=== PATIENT | male | born 1985 | race Caucasian/White ===

== ENCOUNTER → 2024-05-17 | Outpatient (CLI) | payer OTHER, SELFPAY ==
[2024-05-17 12:47] LABS: Bacteria 0 SEEN /hpf (None Seen); Mucous, Urine 0 SEEN /hpf (<or=2+); Red Blood Cells-Urine 0 SEEN /hpf (0-5); Squamous Epithelial Cells - UA 0 SEEN /hpf (0-5); White Blood Cells 0 SEEN /hpf (0-5)
[2024-05-17 15:19] LABS: Color, Urine Yellow (Yellow); Glucose, Dipstick Normal (Normal); Ketone-Dipstick Negative (Negative); Leukocyte Esterase-Dipstick Negative /ul (Negative); Nitrite-Dipstick Negative (Negative); Occult Blood-Urine Negative /ul (Negative); Protein-Dipstick Negative (Negative); Specific Gravity, Urine 1.025 (1.002-1.030); Urine Bilirubin Dipstick Negative (Negative); Urine Clarity Clear (Clear); Urine Urobilinogen Normal (Normal)
[2024-05-17 15:22] LABS: Absolute Lymphocyte Count 2.91 X10^3/uL (0.83-4.51); Absolute Neutrophil Count 8.5 X10^3/uL (2.0-7.7); Basophil# 0.06 X10^3/uL; Basophil% 0.5 % (0-1); Eosinophil# 0.15 X10^3/uL; Eosinophils% 1.2 % (0-5); Hematocrit 47.8 % (40-54); Hemoglobin 15.4 g/dL (13.0-16.5); Lymphocyte # 2.91 X10^3/ul (0.83-4.51); Lymphocyte % 23.3 % (19-41); Mean Corp Hgb Conc 32.2 g/dL (32-36); Mean Corpuscular Hgb 28.6 pg (27.0-32.0); Mean Corpuscular Volume 88.7 fL (80-94); Mean Platelet Vol. 9.2 fl (6.2-12.0); Monocyte# 0.76 X10^3/uL; Monocyte% 6.1 % (0-10); NRBC Flagged by Analyzer 0 % (0-5); Neutrophil # 8.51 X10^3/uL (2.7-7.7); Neutrophil % 68.3 % (47-70); Platelet Count 369 K/mm3 (150-450); RBC Distribution Width CV 13.2 % (11.6-14.6); RBC Distribution Width SD 42.7 fl (35.1-43.9); Red Blood Count 5.39 M/mm3 (4.6-6.2); White Blood Count 12.5 K/mm3 (4.4-11.0)
[2024-05-17 15:35] LABS: ALB/GLOB Ratio 0.7 RATIO (0.9-2.4); AST(SGOT) 31 U/L (15-37); Alanine Aminotransfer ALT/SGPT 89 U/L (16-61); Albumin, Serum 2.9 g/dL (3.2-5.0); Alkaline Phosphatase 86 U/L (45-117); Anion Gap 6 (5-15); BUN 24 mg/dL (7-18); BUN/Creat Ratio 22.9 RATIO (10-20); Calcium,Total 8.7 mg/dL (8.5-10.1); Chloride 106 mmol/L (98-107); Creatinine, Serum 1.05 mg/dL (0.70-1.30); EST Glomerular Filtration Rate 84 mL/min (>60); Est Glom Filt Rate - Afr Amer 102 mL/min (>60); Glucose 108 mg/dL (74-106); Potassium 3.6 mmol/L (3.5-5.1); Protein, Total 6.9 g/dL (6.4-8.2); Sodium Level 139 mmol/L (136-145)
[2024-05-19 08:11] LABS: ASO Titer 1150.5 IU/mL (0.0-200.0); Immunoglobulin A 297 mg/dL (90-386)
== END | disposition home or self-care (01) ==
PROVIDERS: PCP Nurse Practitioner Family; Referring Provider Physician Assistant Medical; Visit Provider Physician Assistant Medical
DX: L30.9 Dermatitis, unspecified (principal)
CPT/HCPCS: 36415; 80053; 81001; 82784; 85025; 86060

== ENCOUNTER → 2024-08-29 | Outpatient (CLI) | payer OTHER, SELFPAY ==
[2024-08-29 11:48] LABS: EXAGEN MAILED SPECIMEN
[2024-08-29 12:20] LABS: Color, Urine Yellow (Yellow); Glucose, Dipstick Normal (Normal); Ketone-Dipstick Negative (Negative); Leukocyte Esterase-Dipstick 25 /ul (Negative); Nitrite-Dipstick Negative (Negative); Occult Blood-Urine 250 /ul (Negative); Protein-Dipstick 100 mg/dl (Negative); Specific Gravity, Urine 1.025 (1.002-1.030); Urine Bilirubin Dipstick Negative (Negative); Urine Clarity Sl. Cloudy (Clear); Urine Urobilinogen Normal (Normal)
[2024-08-29 12:25] LABS: Erythrocyte Sedimentation Rate 36 mm/hr (0-20)
[2024-08-29 12:27] LABS: Absolute Lymphocyte Count 3.17 X10^3/uL (0.83-4.51); Absolute Neutrophil Count 6.1 X10^3/uL (2.0-7.7); Basophil# 0.08 X10^3/uL; Basophil% 0.8 % (0-1); Eosinophil# 0.22 X10^3/uL; Eosinophils% 2.2 % (0-5); Hematocrit 46.2 % (40-54); Lymphocyte # 3.17 X10^3/ul (0.83-4.51); Lymphocyte % 31.1 % (19-41); Mean Corp Hgb Conc 32.5 g/dL (32-36); Mean Corpuscular Hgb 28.5 pg (27.0-32.0); Mean Corpuscular Volume 87.8 fL (80-94); Mean Platelet Vol. 9.3 fl (6.2-12.0); Monocyte% 5.9 % (0-10); NRBC Flagged by Analyzer 0 % (0-5); Neutrophil # 6.07 X10^3/uL (2.7-7.7); Neutrophil % 59.6 % (47-70); Platelet Count 351 K/mm3 (150-450); RBC Distribution Width CV 12.5 % (11.6-14.6); RBC Distribution Width SD 40.5 fl (35.1-43.9); Red Blood Count 5.26 M/mm3 (4.6-6.2); White Blood Count 10.2 K/mm3 (4.4-11.0)
[2024-08-29 12:58] LABS: ALB/GLOB Ratio 0.8 RATIO (0.9-2.4); AST(SGOT) 40 U/L (15-37); Alanine Aminotransfer ALT/SGPT 101 U/L (16-61); Albumin, Serum 3.1 g/dL (3.2-5.0); Alkaline Phosphatase 105 U/L (45-117); Anion Gap 8 (5-15); BUN 20 mg/dL (7-18); BUN/Creat Ratio 22.7 RATIO (10-20); Calcium,Total 9.2 mg/dL (8.5-10.1); Chloride 104 mmol/L (98-107); Creatinine, Serum 0.88 mg/dL (0.70-1.30); EST Glomerular Filtration Rate 103 mL/min (>60); Est Glom Filt Rate - Afr Amer 124 mL/min (>60); Globulin 4.1 g/dL (2.2-4.2); Glucose 103 mg/dL (74-106); Potassium 3.8 mmol/L (3.5-5.1); Protein, Total 7.2 g/dL (6.4-8.2); Sodium Level 136 mmol/L (136-145)
[2024-08-29 13:12] LABS: Protein, Urine (Random) 185.2 mg/dL (<11.9); Protein:Creat Ratio 912 mg/g CRE (0-200)
[2024-08-29 14:27] LABS: Hepatitis B Surface Antibody Reactive; Hepatitis B Surface Antigen Non-Reactive (Nonreactive); Hepatitis C Antibody Non-Reactive (Nonreactive)
== END | disposition home or self-care (01) ==
PROVIDERS: PCP Nurse Practitioner Family; Referring Provider Internal Medicine Rheumatology; Visit Provider Internal Medicine Rheumatology
DX: M31.0 Hypersensitivity angiitis (principal); I10 Essential (primary) hypertension
CPT/HCPCS: 36415; 80053; 81002; 82570; 82595; 84156; 85025; 85652; 86140; 86706; 86803; 87340

== ENCOUNTER → 2024-12-25 | Outpatient (CLI) | payer OTHER, SELFPAY ==
[2024-12-25 12:52] LABS: Erythrocyte Sedimentation Rate 38 mm/hr (0-20)
[2024-12-25 12:56] LABS: Absolute Lymphocyte Count 2.46 X10^3/uL (0.83-4.51); Absolute Neutrophil Count 14.9 X10^3/uL (2.0-7.7); Basophil# 0.06 X10^3/uL; Basophil% 0.3 % (0-1); Eosinophil# 0.02 X10^3/uL; Eosinophils% 0.1 % (0-5); Hematocrit 47.5 % (40-54); Hemoglobin 15.7 g/dL (13.0-16.5); Lymphocyte # 2.46 X10^3/ul (0.83-4.51); Lymphocyte % 13.4 % (19-41); Mean Corp Hgb Conc 33.1 g/dL (32-36); Mean Corpuscular Volume 84.8 fL (80-94); Mean Platelet Vol. 9.3 fl (6.2-12.0); Monocyte# 0.77 X10^3/uL; Monocyte% 4.2 % (0-10); NRBC Flagged by Analyzer 0 % (0-5); Neutrophil # 14.92 X10^3/uL (2.7-7.7); Neutrophil % 81.5 % (47-70); Platelet Count 394 K/mm3 (150-450); RBC Distribution Width CV 13.2 % (11.6-14.6); RBC Distribution Width SD 40.8 fl (35.1-43.9); White Blood Count 18.3 K/mm3 (4.4-11.0)
[2024-12-25 13:04] LABS: ALB/GLOB Ratio 1.1 RATIO (0.9-2.4); AST(SGOT) 24 U/L (<=37); Alanine Aminotransfer ALT/SGPT 46 U/L (<=46); Alkaline Phosphatase 82 U/L (40-129); Anion Gap 13 (5-15); BUN 28 mg/dL (4-19); BUN/Creat Ratio 35.5 RATIO (10-20); Calcium,Total 9.8 mg/dL (7.6-11.0); Carbon Dioxide 21.1 mmol/L (21.0-32.0); Chloride 102 mmol/L (98-108); EST Glomerular Filtration Rate 116 (>60); Globulin 3.6 g/dL (2.2-4.2); Glucose 105 mg/dL (70-99); Potassium 4.5 mmol/L (3.3-5.1); Protein, Total 7.6 g/dL (5.9-8.4); Sodium Level 136 mmol/L (133-145)
[2024-12-25 13:08] LABS: Color, Urine Yellow (Yellow); Glucose, Dipstick Normal (Normal); Ketone-Dipstick Negative (Negative); Leukocyte Esterase-Dipstick Negative /ul (Negative); Nitrite-Dipstick Negative (Negative); Occult Blood-Urine 250 /ul (Negative); Protein-Dipstick 100 mg/dl (Negative); Urine Bilirubin Dipstick Negative (Negative); Urine Clarity Clear (Clear); Urine Urobilinogen Normal (Normal)
[2024-12-25 13:20] LABS: CRP 8.98 mg/L (0.0-3.0)
[2024-12-25 13:34] LABS: Protein, Urine (Random) 66.5 mg/dL (0.0-12.0); Protein:Creat Ratio 652 mg/g CRE (0-200)
== END | disposition home or self-care (01) ==
LOC: MTLAB 09:48
PROVIDERS: PCP Nurse Practitioner Family; Referring Provider Internal Medicine Rheumatology; Visit Provider Internal Medicine Rheumatology
DX: M31.0 Hypersensitivity angiitis (principal); Z79.899 Other long term (current) drug therapy; I10 Essential (primary) hypertension
CPT/HCPCS: 36415; 80053; 81002; 82570; 84156; 85025; 85652; 86140

== ENCOUNTER → 2025-03-26 | Outpatient (CLI) | payer OTHER, SELFPAY ==
[2025-03-26 12:18] LABS: Absolute Lymphocyte Count 2.43 X10^3/uL (0.83-4.51); Absolute Neutrophil Count 13.7 X10^3/uL (2.0-7.7); Basophil# 0.06 X10^3/uL; Basophil% 0.3 % (0-1); Eosinophil# 0.02 X10^3/uL; Eosinophils% 0.1 % (0-5); Hematocrit 47.8 % (40-54); Hemoglobin 15.6 g/dL (13.0-16.5); Lymphocyte # 2.43 X10^3/ul (0.83-4.51); Lymphocyte % 14.1 % (19-41); Mean Corp Hgb Conc 32.6 g/dL (32-36); Mean Corpuscular Hgb 28.9 pg (27.0-32.0); Mean Corpuscular Volume 88.5 fL (80-94); Mean Platelet Vol. 9.1 fl (6.2-12.0); Monocyte# 0.85 X10^3/uL; Monocyte% 4.9 % (0-10); NRBC Flagged by Analyzer 0 % (0-5); Neutrophil # 13.67 X10^3/uL (2.7-7.7); Neutrophil % 79.7 % (47-70); Platelet Count 309 K/mm3 (150-450); RBC Distribution Width CV 14.4 % (11.6-14.6); RBC Distribution Width SD 46.4 fl (35.1-43.9); White Blood Count 17.2 K/mm3 (4.4-11.0)
[2025-03-26 13:09] LABS: Anion Gap 11 (5-15); BUN 22 mg/dL (4-19); BUN/Creat Ratio 27.6 RATIO (10-20); Calcium,Total 9.1 mg/dL (7.6-11.0); Carbon Dioxide 23.4 mmol/L (21.0-32.0); Chloride 100 mmol/L (98-108); EST Glomerular Filtration Rate 116 (>60); Glucose 106 mg/dL (70-99); PTHIN 50 pg/mL (11-61); Potassium 4.2 mmol/L (3.3-5.1); Sodium Level 135 mmol/L (133-145); Uric Acid 3.6 mg/dL (3.5-7.2); Vitamin D,25 Hydroxy 23.7 ng/mL (30-100)
[2025-03-26 13:28] LABS: Protein, Urine (Random) 23.7 mg/dL (0.0-12.0); Protein:Creat Ratio 495 mg/g CRE (0-200)
== END | disposition home or self-care (01) ==
LOC: MTLAB 10:28
PROVIDERS: PCP Nurse Practitioner Family; Referring Provider Student in an Organized Health Care Education/Training Program; Visit Provider Student in an Organized Health Care Education/Training Program
DX: I10 Essential (primary) hypertension (principal); D63.1 Anemia in chronic kidney disease; E21.1 Secondary hyperparathyroidism, not elsewhere classified
CPT/HCPCS: 36415; 80048; 82306; 82570; 83970; 84156; 84550; 85025

== ENCOUNTER → 2025-04-24 | Outpatient (CLI) | payer OTHER, SELFPAY ==
[2025-04-24 15:55] LABS: Color, Urine Yellow (Yellow); Glucose, Dipstick 1000 mg/dl (Normal); Ketone-Dipstick Negative (Negative); Leukocyte Esterase-Dipstick Negative /ul (Negative); Nitrite-Dipstick Negative (Negative); Occult Blood-Urine 150 /ul (Negative); Protein-Dipstick 30 mg/dl (Negative); Specific Gravity, Urine 1.020 (1.002-1.030); Urine Bilirubin Dipstick Negative (Negative)
[2025-04-24 17:04] LABS: Creatinine, Urine (random) 186.00 mg/dL (39.00-259.00)
[2025-04-24 17:07] LABS: Protein, Urine (Random) 39.1 mg/dL (0.0-12.0); Protein:Creat Ratio 210 mg/g CRE (0-200)
[2025-04-24 18:04] LABS: Hematocrit 45.7 % (40-54); Hemoglobin 14.5 g/dL (13.0-16.5); Immature Granulocytes Count 0.090 X10^3/uL (0.0-0.0); Mean Corp Hgb Conc 31.7 g/dL (32-36); Mean Corpuscular Volume 89.1 fL (80-94); Mean Platelet Vol. 9.2 fl (6.2-12.0); NRBC Flagged by Analyzer 0 % (0-5); Platelet Count 346 K/mm3 (150-450); RBC Distribution Width CV 14.3 % (11.6-14.6); RBC Distribution Width SD 46.4 fl (35.1-43.9); Red Blood Count 5.13 M/mm3 (4.6-6.2); White Blood Count 12.4 K/mm3 (4.4-11.0)
[2025-04-24 18:41] LABS: AST(SGOT) 26 U/L (<=37); Alanine Aminotransfer ALT/SGPT 52 U/L (<=46); Albumin, Serum 3.7 g/dL (3.5-5.0); Alkaline Phosphatase 65 U/L (40-129); Anion Gap 12 (5-15); BUN 21 mg/dL (4-19); BUN/Creat Ratio 21.6 RATIO (10-20); CRP 54.40 mg/L (0.0-3.0); Calcium,Total 9.2 mg/dL (7.6-11.0); Carbon Dioxide 24.4 mmol/L (21.0-32.0); Chloride 103 mmol/L (98-108); Globulin 3.2 g/dL (2.2-4.2); Glucose 92 mg/dL (70-99); Potassium 4.1 mmol/L (3.3-5.1)
== END | disposition home or self-care (01) ==
LOC: MTLAB 14:02
PROVIDERS: PCP Nurse Practitioner Family; Referring Provider Internal Medicine Rheumatology; Visit Provider Internal Medicine Rheumatology
DX: M31.0 Hypersensitivity angiitis (principal); Z79.899 Other long term (current) drug therapy
CPT/HCPCS: 36415; 80053; 81002; 82570; 84156; 85025; 85652; 86140

== ENCOUNTER → 2025-06-20 | Outpatient (CLI) | payer OTHER, SELFPAY ==
--- OUTSIDE RECORDS SUMMARY | 2025-06-20 07:10 | XMS RPT_ITS | CCD ---
Author Organization [facility] CliniSymo Care Team Providers Care Spindraw Operator Name Role Phone Unavailable Primary Care Provider UnavailKRYSTEN Crespo Attending Unavailable CONSULT, IMMUNOLOGY/RHEUMATOLOGY Consulting Unavailable Unavailable Primary Care Provider Unavailjeremias Alba DPTru, Rob Holly Unavailable [phone] Alma MARTINEZ, Huy Primary Care Provider [phone] DESMOND MARTINEZ, DR KULKARNI Attending Un available DRAKE BURNS MD Consulting Unavailable Ria MONREAL-C, Tavon Primary Care Provider Bao MARTINEZ, Dr. Sharma Attending Provider Bao MARTINEZ, Dr. Sharma Referring Provider Desmond MARTINEZ, Dr. Kulkarni Attending Provide r Desmond MARTINEZ, Dr. Kulkarni Referring Provide r CAYLA LOGAN MD Attending UnaCAYLA Mckeon MD Primary Care Unava ilCAYLA Irby MD Admitting Unava ilSEAN Thomason DO Attending Unavailable SEAN GERMAIN DO Primary Care Unavailable SEAN GERMAIN DO Admitting Unavailable TAVON ROLLINS CNP Referring Unavailable TAVON ROLLINS CNP Consulting Unavailable STEPHANY BALLARD DO Attending Unavailable STEPHANY BALLARD DO Primary Care Unavailable STEPHANY BALLARD DO Admitting Unavailable PROVIDER, UNKNOWN Consulting Unavailable PROVIDER, UNKNOWN Consulting Unavailable TAVON ROLLINS CNP Referring Unavailable TAVON ROLLINS CNP Consulting Unavailable SEAN GERMAIN DO Attending Unavailable SEAN GERMAIN DO Primary Care Unavailable SEAN GERMAIN DO Admitting Unavailable PROVIDER, UNKNOWN Consulting Unavailable PROVIDER, UNKNOWN Consulting Unavailable VARGAS DAVIS MD Attending Unavailable VARGAS DAVIS MD Primary Care Unavailable VARGAS DAVIS MD Admitting Unavailable TAVON ROLLINS CNP Referring Unavailable TAVON ROLLINS CNP Consulting Unavailable CHITO MIRELES Attending Unavailable CHITO MIRELES Primary Care Unavailable CHITO MIRELES Admitting Unavailable PROVIDER, UNKNOWN Consulting Unavailable PROVIDER, UNKNOWN Consulting Unavailable EDITH GORE MD Attending Unavailable EDITH GORE MD Primary Care Unavailable EDITH GORE MD Admitting Unavailable HUY MARQUEZ MD Consulting Unavailable PROVIDER, UNKNOWN Consulting Unavailable ROB ALBA Attending Unavailable PAGE, HUY Primary Care Unavailable TAMRA DAVILA Attending Unavailable ALBAROB Attending Unavailable PAGE, HUY Primary Care Unavailable ALBAROB Attending Unavailable PAGE, HUY Attending Unavailable PAGE, HUY Primary Care Unavailable ROB ALBA Attending Unavailable ALBAROB Attending Unavailable HITANMAY Sutton Attending Unavailable TANMAY DO Attending Unavailable PAGE, HUY Attending Unavailable PAGE, HUY Primary Care Unavailable PAGE, HUY Attending Unavailable PAGE, HUY Primary Care Unavailable ALBAROB Attending Unavailable PAGE, HUY Primary Care Unavailable PAGE, HUY Primary Care Unavailable CURRENT, ANNE Lugo Attending Unavailable Ria ERP PROJECT MANAGER-C, Tavon Primary Care Provider [phone] Dr. Edith Gore MD Attending Provider Dr. Edith Gore MD Referring Provider Ria ERP PROJECT MANAGER-CTavon Referring Provider [phone] Dr. Jabari Reese MD Attending Provider [facility] Doctor, Out of Primary Care Provider Cayden mcgarry [facility] Doctor, Out of Primary Care Unavailable Jabari Reese Attending Unavailable Tavon Rollins NP Referring Unavailable Edith Gore Referring Unavailable Ria ERP PROJECT MANAGERTavon Primary Care Unavailable Edith Gore Attending Unavailable Bucktowarsinjg Bhavnish Attending Unavaila ble Bucktowarjose juan Bhavnish Referring Unavaila ble Ria ERP PROJECT MANAGER, Tavon Primary Care Unavailable Edith Gore Referring Unavailable Ria ERP PROJECT MANAGER, Tavon Primary Care Unavailable Edith Gore Attending Unavailable MoilanEdith gautam Attending Unavailable MoilanEdith gautam Referring Unavailable Ria ERP PROJECT MANAGER, Tavon Primary Care Unavailable [facility] Doctor, Out of Primary Care Unavailable Jabari Reese Attending Unavailable Jabari Reese Referring Unavailable Allergies Allergy Classification Reported Allergen(s) Allergy Type Date of Onset Reaction(s) Facility (18 sources) Cephalexin; Translations: [CEPHALEXIN] Drug Allergy 06-09-2024 [facility] (1 source) Cephalexin Drug Allergy [facility] (1 source) Cephalexin Drug Allergy 05-24-2025 [facility] Repository Medications Current Medications Medication Drug Class(es) Dates Sig (Normalized) Sig (Original) alendronic acid 70 mg oral tablet (1 source) Bisphosphonate Start: 05-18-2025 take 1 tablet by mouth every week Alendronate (Fosamax) 70 mg tablet Active 70 mg PO EVERY WEEK May 18, 2025 12:00am cholecalciferol 0.125 mg oral capsule (1 source) Vitamin D Start: 05-18-2025 take 1 capsule by mouth once daily Cholecalciferol (Vitamin D3) 125 mcg (5,000 unit) capsule Active 125 ug PO daily May 18, 2025 12:00am clindamycin 300 mg oral capsule (3 sources) Lincosamide Antibacterial Start: 06-29-2024 End: 07-09-2024 take 1 capsule by mouth twice daily clindamycin (CLEOCIN) 300 mg capsule Indications: Wound infection Take 1 capsule by mouth two times a day for 10 days. 20 capsule 06/29/2024 07/09/2024 Active Start: 06-10-2024 End: 06-24-2024 take 1 capsule by mouth twice daily clindamycin 300 MG capsule Take 1 capsule by mouth 2 times daily for 14 days. 28 capsule 06/10/2024 06/24/2024 Active dapagliflozin 10 mg oral tablet (3 sources) Sodium-Glucose Cotransporter 2 Inhibitor Start: 05-18-2025 take 1 tablet by mouth once daily in the morning Dapagliflozin Propanediol (Farxiga) 10 mg tablet Active 10 mg PO EVERY MORNING May 18, 2025 12:00am Start: 01-04-2025 take 1 tablet by blas th once daily dapagliflozin propanediol (FARXIGA) 10 mg tablet Take 10 mg by mouth once daily. 01/04/2025 Active lisinopril 10 mg oral tablet (17 sources) Angiotensin Converting Enzyme Inhibitor Start: 05-18-2024 End: 06-13-2025 take 1 tablet by mouth once daily Lisinopril 10 mg tablet Active 10 mg PO daily May 18, 2025 12:00am Multivitamin tablet (1 source) Start: 05-18-2025 Multivitamin tablet Active 1 {tbl} PO EVERY MORNING May 18, 2025 12:00am triamcinolone acetonide 0.001 mg/mg topical ointment (1 source) Corticosteroid Start: 06-10-2024 End: 06-24-2024 triamcinolone 0.1 % Ointment ointment Apply 1 Application topically 2 times daily for 14 days. Apply thin layer to all areas of burning, pruritus or open wounds. Avoid face and genital area. 15 g 06/10/2024 06/24/2024 Active Completed/Discontinued Medications Medication Drug Class(es) Dates Sig (Normalized) Sig (Original) acetaminophen 325 mg oral tablet (1 source) Start: 06-10-2024 End: 06-10-2024 take 1 tablet by mouth every four hours as needed 650 mg, Oral, EVERY 4 HOURS NEEDED, Starting on 06/10/24 at 0235, Until 06/10/24 at 1706, Mild Pain, Oral temp > 100.4 F, Maximum dose of acetaminophen is 4000 mg from all sources in 24 hours. aluminum hydroxide 40 mg/ml / magnesium hydroxide 40 mg/ml / simethicone 4 mg/ml oral suspension (1 source) Start: 06-10-2024 End: 06-10-2024 take 30 mL by mouth every six hours as needed 30 mL, Oral, EVERY 6 HOURS NEEDED, Starting on 06/10/24 at 0235, Until 06/10/24 at 1706, Indigestion, Per 5 mL is equivalent to: (Alum-Mag Hydroxide 200-225 mg and Simethicone 20 mg) and (Alum-Mag Hydroxide 200-200 mg and Simethicone 20 mg) atorvastatin 20 mg oral tablet (13 sources) HMG-CoA Reductase Inhibitor Start: 05-18-2025 End: 05-24-2025 take 1 tablet by mouth at bedtime Atorvastatin (Lipitor) 20 mg tablet Discontinued 20 mg PO AT BEDTIME May 18, 2025 12:00am May 24, 2025 9:02am take 1 tablet by mouth once guillermo y atorvastatin (LIPITOR) 20 mg tablet Take 20 mg by mouth once daily. Active ibuprofen 600 mg oral tablet (1 source) Nonsteroidal Anti-inflammatory Drug Start: 06-10-2024 End: 06-10-2024 take 1 dose by mouth once at mealtime 600 mg, Oral, ONCE, 1 dose, On 06/10/24 at 1345, Give with food predniSONE 20 mg oral tablet (2 sources) Start: 12-22-2024 End: 01-24-2025 take 1 tablet by mouth every twelve hours predniSONE (DELTASONE) 20 mg tablet Take 1 tablet by mouth every 12 hours. 12/22/2024 01/24/2025 Discontinued Start: 06-10-2024 End: 08-05-2024 take 4 tablets by mouth once daily, then take 3 tablets by mouth once daily, then take 2 tablets by mouth once daily, then take 1 tablet by mouth once daily at mealtime predniSONE 10 MG tablet Take 4 tablets by mouth daily for 14 days, THEN 3 tablets daily for 14 days, THEN 2 tablets daily for 14 days, THEN 1 tablet daily for 14 days. Take with food. 140 tablet 06/10/2024 08/05/2024 Active Problems Active Problems Problem Classification Problem Date Documented Date Episodic/Chronic Chronic ulcer of skin (14 sources) Non-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; Translations: [Ulcer of other part of lower limb] Onset: 08-10-2024 07-13-2024 Chronic Disorders of lipid metabolism (10 sources) Hypercholesterolemia; Translations: [Pure hypercholesterolemia, unspecified] Onset: 08-02-2024 08-02-2024 Chronic Essential hypertension (15 sources) Hypertensive disorder; Translations: [Essential (primary) hypertension] Onset: 05-15-2024 08-02-2024 Chronic Genitourinary symptoms and ill-defined conditions (2 sources) Proteinuria, unspecified; Translations: [Proteinuria, unspecified] Onset: 12-21-2024 Episodic Nephritis; nephrosis; renal sclerosis (4 sources) IgA nephropathy; Translations: [IgA nephropathy] Onset: 01-23-2025 01-24-2025 Chronic Other circulatory disease (2 sources) Vasculitis; Translations: [Arteritis, unspecified] 06-10-2024 Chronic Other circulatory disease (3 sources) Arteritis, unspecified; Translations: [Arteritis, unspecified] Onset: 06-09-2024 Chronic Other circulatory disease (1 source) Hypersensitivity angiitis; 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] Onset: 05-01-2025 Chronic Other diseases of veins and lymphatics (6 sources) Venous hypertension of lower limb; Translations: [Chronic venous hypertension (idiopathic) with ulcer of bilateral lower extremity] 07-13-2024 Chronic Other diseases of veins and lymphatics (6 sources) Chronic acquired lymphedema; Translations: [Lymphedema, not elsewhere classified] 07-13-2024 Chronic Other diseases of veins and lymphatics (1 source) Chronic venous hypertension (idiopathic) with ulcer of bilateral lower extremity; Translations: [Chronic venous hypertension (idiopathic) with ulcer of bilateral lower extremity (CODE) (HCC)] Onset: 08-10-2024 Chronic Other diseases of veins and lymphatics (1 source) Lymphedema, not elsewhere classified; Translations: [Secondary lymphedema] Onset: 08-10-2024 Chronic Other injuries and conditions due to external causes (1 source) Local infection of wound; Translations: [Other injury of unspecified body region, initial encounter] 06-29-2024 Episodic Other nutritional; endocrine; and metabolic disorders (10 sources) Severe obesity; Translations: [Class 3 severe obesity without serious comorbidity in adult] Onset: 08-02-2024 08-02-2024 Chronic Residual codes; unclassified (1 source) Localized edema; Translations: [Bilateral lower extremity edema] Onset: 04-07-2025 Episodic Unclassified (1 source) Hepatic fibrosis, unspecified; Translations: [Hepatic fibrosis, unspecified] Onset: 06-11-2025 Past or Other Problems Problem Classification Problem Date Documented Date Episodic/Chronic Allergic reactions (2 sources) Allergy status to other antibiotic agents status; Translations: [Allergy status to other drugs, medicaments and biological substances status] Onset: 05-15-2024 Episodic Coagulation and hemorrhagic disorders (20 sources) Hypersensitivity angiitis; 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] Onset: 05-11-2024 07-13-2024 Episodic Immunizations and screening for infectious disease (4 sources) Patient encounter status; Translations: [Encounter for immunization] Onset: 08-02-2024 08-02-2024 Episodic Other connective tissue disease (3 sources) Pain in right leg; Translations: [Pain in right leg] Onset: 06-02-2024 Episodic Other connective tissue disease (1 source) Pain in left leg; Translations: [Pain in left leg] Onset: 06-02-2024 Episodic Other connective tissue disease (2 sources) Pain in right lower leg; Translations: [Pain in right lower leg] Onset: 05-31-2024 Episodic Other injuries and conditions due to external causes (1 source) Other injury of unspecified body region, initial encounter; Translations: [Wound infection] Onset: 06-29-2024 Episodic Other skin disorders (3 sources) Rash and other nonspecific skin eruption; Translations: [Rash and other nonspecific skin eruption] Onset: 05-11-2024 Episodic Residual codes; unclassified (1 source) Edema Onset: 06-24-2024 Episodic Screening and history of mental health and substance abuse codes (2 sources) Encounter for screening for depression; Translations: [Encounter for screening examination for other mental health and behavioral disorders] Onset: 08-02-2024 Episodic Skin and subcutaneous tissue infections (2 sources) Cellulitis of right lower limb; Translations: [Local infection of the skin and subcutaneous tissue, unspecified] Onset: 05-31-2024 Episodic Substance-related disorders (12 sources) Nicotine dependence; Translations: [Nicotine dependence, unspecified, uncomplicated] Onset: 08-02-2024 Resolved: 10-26-2024 08-02-2024 Chronic Results Test Name Value Interpretation Reference Range Facility Gastroenterology Visit Repor ton 05-24-2025 Gastroenterology Visit Report [facility] [address] [place] [address] OFFICE VISIT Date of Service: 05/24/25 MR#: [id number] Acct: [id number] Name: KRYSTEN CROOK Rep #: [id number] : 1985 Provider: Dr. Jabari dietrich MD Age/Sex: 40/M Location: [facility] Status: Signed Intake Vital Signs 05/24/25 08:57 Height 5 ft 8 in Weight: 308 lb 6 oz BMI 46.8 BP 115/81 H Blood Pressure Location Lt brachial Position Sitting Respiration 16 Pulse 74 Pulse Source Monitor Pulse Oximetry (%) 94 Oxygen Delivery Method room air Intake Visit Reasons: Possible Liver Cirrhosis Chief Complaint: Referral potential Liver Fibrosis Claim Processor Required: No Is patient in pain?: No Allergies cephalexin (From Keflex) Allergy (Intermediate, Verified 05/24/25 09:02) Hives Medications ???Medication ???Instructions ???Recorded ???Confirmed ???Type alendronate 70 mg tablet (Fosamax) 70 mg PO QWEEK 05/18/25 05/18/25 History cholecalciferol (vitamin D3) 125 125 mcg PO QDAY 05/18/25 05/18/25 History mcg (5,000 unit) capsule dapagliflozin propanediol 10 mg 10 mg PO QAM 05/18/25 05/18/25 His tory tablet (Farxiga) lisinopril 10 mg tablet 10 mg PO QDAY 05/18/25 05/18/25 Hi story multivitamin 1 tab PO QAM 05/18/25 05/18/25 His tory PFSH Medical History HLD (hyperlipidemia) Essential (primary) hypertension IgA mediated leukocytoclastic vasculitis BECKY (obstructive sleep apnea) Family History Grandfather Cancer Hypertension Diabetes Social History Smoking Status: Former smoker quit date: 10/18/19 alcohol intake: current alcohol intake frequency: a few times a week substance use type: does not use HPI HPI Chief Complaint: Referral potential Liver Fibrosis Details: KRYSTEN CROOK, is a 40 M who presents to the office today for a referral we got from Rheumatology for possible liver cirrhosis. Not having any symptoms at this time. Patient is morbidly obese was referred by Dr. Gore for evaluation of abnormal liver ultrasound which was suboptimal because of body habitus. 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 Since then patient visited [facility] where he had a biopsy of lesions of the left anterior proximal thigh which showed evidence of leukocytoclastic vasculitis, IgA vasculitis or urticarial vasculitis. Since then patient has been on multiple doses of prednisone, antibiotics including clindamycin, doxycycline and saw tobacco sprayer also. His lesions have healed since August. He was also tested negative for autoimmune antibodies including cryoglobulin, anti-C1q IgG, Avise vasculitis panel, antihistone IgG, ALTON, anti-DNA, antiphospholipid antibodies, RF and anti-CCP antibodies. AVISE lupus index was -2.2. In February 2025 his weight was 214 pounds, height 5 feet 9 inch, BMI 96.8 Fahrenheit, heart rate 111/min, BP 120/77. Labs reviewed. Currently patient denies any signs and symptoms of abdominal pain, jaundice, GI bleed, sudden increase in abdominal girth. He has mild leg swelling and gets worse at the end of the day. He said he lost about 4 to 5 pounds in the last couple months Past medical history: Denies diabetes mellitus, no heart disease or heart failure. Social history: Started smoking of 1 pack/day in early 20s. Quit in 2023. Alcohol used to drink heavy started in early 20s, 12 pack of beer, 12 ounce bottle on weekends probably both on Wednesday and Wednesday. He also used to drink 2-3 shots of whiskey. He decrease his drinking to once a week on the weekend 12 bottles of beer per Family history: Denies autoimmune disease including UC, CD, celiac disease, autoimmune disease related to pancreas, liver, gastritis, adrenal gland, pituitary, and thyroid gland ROS Const Constitutional: Positive for decreased energy and weight change; No fever(s) or weakness ENT ENT: No dizziness/vertigo, nosebleed/epistaxis or tongue swelling Resp Respiratory: No shortness of breath or wheezing Cardio Cardiology: No chest pain at rest or dyspnea on exertion Gastro GI: No coffee ground emesis, Blood in stool or Black,tarry stools Genitourinary Male: No difficulty urinating or burning urination Musc Musculoskeletal: No limited range of motion or muscle weakness Skin Skin: Positive for dry skin; No rash Neuro Neurology: No abnormal movements, behavioral changes, weakness or lack of coordination Psych Psychiatric: No behavioral changes, No hyperactivity and No inattentiveness End (more content not included)... Normal [facility] Absolute lymphocyte countOrd ered By: Edith Gore on 04-24-2025 Lymphocytes Auto (Unsp spec) [#/Vol] 2.68 10*3/uL 0.83-4.51 [facility] Absolute neutrophil countOrd ered By: Edith Gore on 04-24-2025 Neutrophils (Bld) [#/Vol] 8.6 10*3/uL High 2.0-7.7 [facility] Anion gap in Serum or Plasma Ordered By: Edith Gore on 04-24-2025 Anion gap [Moles/Vol] 12 mmol/L 5-15 [facility] Automated lymphocyte count a s percentage of total leukocytesOrdered By: Edith Gore on 04-24-2025 Lymphocytes/100 WBC Auto (Unsp spec) 21.6 % 19-41 [facility] BUN/creatinine ratioOrdered By: Edithmarleni Gore on 04-24-2025 Urea nitrogen/Creatinine [Mass ratio] 21.6 mg/mg High 10-20 [facility] Basophil percentageOrdered B y: Edith Gore on 04-24-2025 Basophils/100 WBC (Bld) 0.3 % 0-1 [facility] Bilirubin Test strip Ql (U)O rdered By: Edith Gore on 04-24-2025 Bilirubin Ql (U) Negative Negative [facility] Bilirubin, totalOrdered By: Edith Gore on 04-24-2025 Bilirubin [Mass/Vol] 0.30 mg/dL 0.00-1.30 [facility] CBC W/Diff, Automatedon Absolute Lymph 2.68 X10 3/uL Normal 0.83-4.51 [facility] Comment on above: Performed By: #### L 501.0900, L101.9900, L501.6710, L500.4050, L100.0100, L400.2010 #### [facility] [address] [place], [address] Absolute Neut 8.6 X10 3/uL High 2.0-7.7 [facility] Comment on above: Performed By: #### L 501.0900, L101.9900, L501.6710, L500.4050, L100.0100, L400.2010 #### [facility] [address] [place], [address] Basophils/100 WBC (Bld) 0.3 % Normal 0-1 [facility] Comment on above: Performed By: #### L 501.0900, L101.9900, L501.6710, L500.4050, L100.0100, L400.2010 #### [facility] [address] [place], [address] Eosinophils/100 WBC (Bld) 1.0 % Normal 0-5 [facility] Comment on above: Performed By: #### L 501.0900, L101.9900, L501.6710, L500.4050, L100.0100, L400.2010 #### [facility] [address] [place], [address] Erythrocyte distribution width (RBC) [Ratio] 14.3 % Normal 11.6-14.6 [facility] Comment on above: Performed By: #### L 501.0900, L101.9900, L501.6710, L500.4050, L100.0100, L400.2010 #### [facility] [address] [place], [address] Hematocrit (Bld) [Volume fraction] 45.7 % Normal 40-54 [facility] Comment on above: Performed By: #### L 501.0900, L101.9900, L501.6710, L500.4050, L100.0100, L400.2010 #### [facility] [address] [place], [address] Hemoglobin (Bld) [Mass/Vol] 14.5 g/dL Normal 13.0-16.5 [facility] Comment on above: Performed By: #### L 501.0900, L101.9900, L501.6710, L500.4050, L100.0100, L400.2010 #### [facility] [address] [place], [address] IG% 0.700 Normal 0.0-0.9 [facility] Comment on above: Result Comment: IG% - Immature Granulocytes (promyelocytes, myelocytes and metamyelocytes) > 1% indicates that a LEFT SHIFT is Present. Performed By: #### L 501.0900, L101.9900, L501.6710, L500.4050, L100.0100, L400.2010 #### [facility] [address] [place], [address] Lymphocytes/100 WBC (Bld) 21.6 % Normal 19-41 [facility] Comment on above: Performed By: #### L 501.0900, L101.9900, L501.6710, L500.4050, L100.0100, L400.2010 #### [facility] [address] [place], [address] MCH (RBC) [Entitic mass] 28.3 pg Normal 27.0-32.0 [facility] Comment on above: Performed By: #### L 501.0900, L101.9900, L501.6710, L500.4050, L100.0100, L400.2010 #### [facility] [address] [place], [address] MCHC (RBC) [Mass/Vol] 31.7 g/dL Low 32-36 [facility] Comment on above: Performed By: #### L 501.0900, L101.9900, L501.6710, L500.4050, L100.0100, L400.2010 #### [facility] [address] [place], [address] MCV (RBC) [Entitic vol] 89.1 fL Normal 80-94 [facility] Comment on above: Performed By: #### L 501.0900, L101.9900, L501.6710, L500.4050, L100.0100, L400.2010 #### [facility] [address] [place], [address] Monocytes/100 WBC (Bld) 7.0 % Normal 0-10 [facility] Comment on above: Performed By: #### L 501.0900, L101.9900, L501.6710, L500.4050, L100.0100, L400.2010 #### [facility] [address] [place], [address] Neutrophils/100 WBC (Bld) 69.4 % Normal 47-70 [facility] Comment on above: Performed By: #### L 501.0900, L101.9900, L501.6710, L500.4050, L100.0100, L400.2010 #### [facility] [address] [place], [address] Nucleated RBC (Bld) [#/Vol] 0 10*3/uL Normal 0-5 [facility] Comment on above: Performed By: #### L 501.0900, L101.9900, L501.6710, L500.4050, L100.0100, L400.2010 #### [facility] [address] [place], [address] Platelet mean volume (Bld) [Entitic vol] 9.2 fL Normal 6.2-12.0 [facility] Comment on above: Performed By: #### L 501.0900, L101.9900, L501.6710, L500.4050, L100.0100, L400.2010 #### [facility] [address] [place], [address] Platelets (Bld) [#/Vol] 346 10*3/uL Normal 150-450 [facility] Comment on above: Performed By: #### L 501.0900, L101.9900, L501.6710, L500.4050, L100.0100, L400.2010 #### [facility] [address] [place], [place], [id number] RBC (Bld) [#/Vol] 5.13 10*6/uL Normal 4.6-6.2 [facility] Comment on above: Performed By: #### L 501.0900, L101.9900, L501.6710, L500.4050, L100.0100, L400.2010 #### [facility] [address] [place], [address] RDW SD 46.4 fl High 35.1-43.9 [facility] Comment on above: Performed By: #### L 501.0900, L101.9900, L501.6710, L500.4050, L100.0100, L400.2010 #### [facility] [address] [place], [address] WBC (Bld) [#/Vol] 12.4 10*3/uL High 4.4-11.0 [facility] Comment on above: Performed By: #### L 501.0900, L101.9900, L501.6710, L500.4050, L100.0100, L400.2010 #### [facility] [address] [place], [address] CRPon 04-24-2025 C-REACTIVE PROT 54.40 mg/L High 0.0-3.0 [facility] Comment on above: Performed By: #### L 501.0900, L101.9900, L501.6710, L500.4050, L100.0100, L400.2010 #### [facility] [address] [place], [address] Carbon dioxide, total [Moles /volume] in Central venous bloodOrdered By: Edith Gore on 04-24-2025 CO2 [Moles/Vol] 24.4 mmol/L 21.0-32.0 [facility] Chloride assayOrdered By: Manuel Gore on 04-24-2025 Chloride [Moles/Vol] 103 mmol/L 98-108 [facility] Comprehensive Metabolic Prof ilon 04-24-2025 Albumin [Mass/Vol] 3.7 g/dL Normal 3.5-5.0 [facility] Comment on above: Performed By: #### L 501.0900, L101.9900, L501.6710, L500.4050, L100.0100, L400.2010 #### [facility] [address] [place], [address] Albumin/Globulin [Mass ratio] 1.2 {ratio} Normal 0.9-2.4 [facility] Comment on above: Performed By: #### L 501.0900, L101.9900, L501.6710, L500.4050, L100.0100, L400.2010 #### [facility] [address] [place], [address] ALK PHOS 65 U/L Normal 40-129 [facility] Comment on above: Performed By: #### L 501.0900, L101.9900, L501.6710, L500.4050, L100.0100, L400.2010 #### [facility] [address] [place], [address] ALT [Catalytic activity/Vol] 52 U/L High <=46 [facility] Comment on above: Performed By: #### L 501.0900, L101.9900, L501.6710, L500.4050, L100.0100, L400.2010 #### [facility] [address] [place], [address] AST [Catalytic activity/Vol] 26 U/L Normal <=37 [facility] Comment on above: Performed By: #### L 501.0900, L101.9900, L501.6710, L500.4050, L100.0100, L400.2010 #### [facility] [address] [place], [address] Bilirubin [Mass/Vol] 0.30 mg/dL Normal 0.00-1.30 [facility] Comment on above: Performed By: #### L 501.0900, L101.9900, L501.6710, L500.4050, L100.0100, L400.2010 #### [facility] [address] [place], [address] BUN/CRE 21.6 RATIO High 10-20 [facility] Comment on above: Performed By: #### L 501.0900, L101.9900, L501.6710, L500.4050, L100.0100, L400.2010 #### [facility] [address] [place], [address] Calcium [Mass/Vol] 9.2 mg/dL Normal 7.6-11.0 [facility] Comment on above: Performed By: #### L 501.0900, L101.9900, L501.6710, L500.4050, L100.0100, L400.2010 #### [facility] [address] [place], [address] Chloride [Moles/Vol] 103 mmol/L Normal 98-108 [facility] Comment on above: Performed By: #### L 501.0900, L101.9900, L501.6710, L500.4050, L100.0100, L400.2010 #### [facility] [address] [place], [address] CO2 [Moles/Vol] 24.4 mmol/L Normal 21.0-32.0 [facility] Comment on above: Performed By: #### L 501.0900, L101.9900, L501.6710, L500.4050, L100.0100, L400.2010 #### [facility] [address] [place], [address] Creatinine [Mass/Vol] 0.98 mg/dL Normal 0.70-1.20 [facility] Comment on above: Performed By: #### L 501.0900, L101.9900, L501.6710, L500.4050, L100.0100, L400.2010 #### [facility] [address] [place], [address] GAP 12 Normal 5-15 [facility] Comment on above: Performed By: #### L 501.0900, L101.9900, L501.6710, L500.4050, L100.0100, L400.2010 #### [facility] [address] [place], [address] GFR/1.73 sq M.predicted among non-blacks MDRD (S/P/Bld) [Vol rate/Area] 102 mL/min/{1.73_m2} Normal >60 [facility] Comment on above: Result Comment: mL/m in/1.73m2 CKD-EPI Creatinine Equation (2020) Performed By: #### L 501.0900, L101.9900, L501.6710, L500.4050, L100.0100, L400.2010 #### [facility] [address] [place], [address] Globulin (S) [Mass/Vol] 3.2 g/dL Normal 2.2-4.2 [facility] Comment on above: Performed By: #### L 501.0900, L101.9900, L501.6710, L500.4050, L100.0100, L400.2010 #### [facility] [address] [place], [address] Glucose [Mass/Vol] 92 mg/dL Normal 70-99 [facility] Comment on above: Performed By: #### L 501.0900, L101.9900, L501.6710, L500.4050, L100.0100, L400.2010 #### [facility] [address] [place], [address] Potassium [Moles/Vol] 4.1 mmol/L Normal 3.3-5.1 [facility] Comment on above: Performed By: #### L 501.0900, L101.9900, L501.6710, L500.4050, L100.0100, L400.2010 #### [facility] [address] [place], [address] Sodium [Moles/Vol] 139 mmol/L Normal 133-145 [facility] Comment on above: Performed By: #### L 501.0900, L101.9900, L501.6710, L500.4050, L100.0100, L400.2010 #### [facility] [address] [place], [address] T PROT 6.9 g/dL Normal 5.9-8.4 [facility] Comment on above: Performed By: #### L 501.0900, L101.9900, L501.6710, L500.4050, L100.0100, L400.2010 #### [facility] [address] [place], [address] Urea nitrogen [Mass/Vol] 21 mg/dL High 4-19 [facility] Comment on above: Performed By: #### L 501.0900, L101.9900, L501.6710, L500.4050, L100.0100, L400.2010 #### [facility] [address] [place], [address] Eosinophil percentageOrdered By: Edith Gore on 04-24-2025 Eosinophils/100 WBC (Bld) 1.0 % 0-5 [facility] Erythrocyte Sed Rateon 04-24 SED RATE 50 mm/hr High 0-20 [facility] Comment on above: Performed By: #### L 501.0900, L101.9900, L501.6710, L500.4050, L100.0100, L400.2010 #### [facility] [place], [address] Erythrocyte distribution wid th ratioOrdered By: Edith Gore on 04-24-2025 Erythrocyte distribution width (RBC) [Ratio] 14.3 % 11.6-14.6 [facility] Erythrocyte distribution wid th standard deviationOrdered By: Edith Gore on 04-24-2025 Erythrocyte distribution width (RBC) [Ratio] 46.4 fl High 35.1-43.9 [facility] Erythrocyte sedimentation ra teOrdered By: Edith Gore on 04-24-2025 ESR (Bld) [Velocity] 50 mm/h High 0-20 [facility] Glomerular filtration rate ( GFR) estimation/1.73 sq m using serum, plasma, or whole bOrdered By: Edith Gore on 04-24-2025 GFR/1.73 sq M.predicted among non-blacks MDRD (S/P/Bld) [Vol rate/Area] 102 mL/min/{1.73_m2} >60 [facility] Comment on above: mL/min/1.73m2 CKD-EP I Creatinine Equation (2020) Hematocrit Auto (Bld) [Volum e fraction]Ordered By: Edith Gore on 04-24-2025 Hematocrit (Bld) [Volume fraction] 45.7 % 40-54 [facility] Hemoglobin measurementOrdere d By: Edith Gore on 04-24-2025 Hemoglobin (Bld) [Mass/Vol] 14.5 g/dL 13.0-16.5 [facility] Immature granulocytes/100 WB C Auto (Bld)Ordered By: Edith Gore on 04-24-2025 Immature granulocytes/100 WBC (Bld) 0.700 % 0.0-0.9 [facility] Comment on above: IG% - Immature Granu locytes (promyelocytes, myelocytes and metamyelocytes) > 1% indicates that a LEFT SHIFT is Present. Ketones Test strip Ql (U)Ord ered By: Edith Gore on 04-24-2025 Ketones Ql (U) Negative Negative [facility] - Chemistry and C hemistry - challengeOrdered By: Edith Gore on 04-24-2025 AST [Catalytic activity/Vol] 26 U/L <38 [facility] MCV (mean corpuscular volume ) determinationOrdered By: Edith Gore on 04-24-2025 MCV (RBC) [Entitic vol] 89.1 fL 80-94 [facility] Mean corpuscular hemoglobin (MCH) determinationOrdered By: Edith Gore on 04-24-2025 MCH (RBC) [Entitic mass] 28.3 pg 27.0-32.0 [facility] Mean corpuscular hemoglobin concentration (MCHC) determinationOrdered By: Edith Gore on 04-24-2025 MCHC (RBC) [Mass/Vol] 31.7 g/dL Low 32-36 [facility] Mean platelet volume determi nationOrdered By: Edith Gore on 04-24-2025 Platelet mean volume (Bld) [Entitic vol] 9.2 fL 6.2-12.0 [facility] Monocyte percentageOrdered B y: Edith Gore on 04-24-2025 Monocytes/100 WBC (Bld) 7.0 % 0-10 [facility] Neutrophil percentageOrdered By: Edith Gore on 04-24-2025 Neutrophils/100 WBC (Bld) 69.4 % 47-70 [facility] Nitrite Test strip Ql (U)Ord ered By: Edith Gore on 04-24-2025 Nitrite Ql (U) Negative Negative [facility] Nucleated red blood cell per centageOrdered By: Edith Gore on 04-24-2025 Nucleated RBC/100 WBC (Bld) [Ratio] 0 % 0-5 [facility] Platelet countOrdered By: Manuel Gore on 04-24-2025 Platelets (Bld) [#/Vol] 346 10*3/uL 150-450 [facility] Potassium measurement (mass/ volume)Ordered By: Edith Gore on 04-24-2025 Potassium (Unsp spec) [Mass/Vol] 4.1 mmol/L 3.3-5.1 [facility] Protein Test strip Ql (U)Ord ered By: Edith Gore on 04-24-2025 Protein Ql (U) 30 mg/dl High Negative [facility] Protein+Creatinine Ratio,Uri neon 04-24-2025 PROT:CRE RATIO 210 mg/g CRE High 0-200 [facility] Comment on above: Performed By: #### L 501.0900, L101.9900, L501.6710, L500.4050, L100.0100, L400.2010 #### [facility] [address] [place], [address] Protein (U) [Mass/Vol] 39.1 mg/dL High 0.0-12.0 [facility] Comment on above: Performed By: #### L 501.0900, L101.9900, L501.6710, L500.4050, L100.0100, L400.2010 #### [facility] [address] [place], [address] RBC Auto (Bld) [#/Vol]Ordere d By: Edith Gore on 04-24-2025 RBC (Bld) [#/Vol] 5.13 10*6/uL 4.6-6.2 [facility] Random urine creatinine cristian urement (mass/volume)Ordered By: Edith Gore on 04-24-2025 Creatinine Unsp time (U) [Mass/Vol] 186.00 mg/dL 39.00-259.00 [facility] Serum creatinine measurement (mass/volume)Ordered By: Edith Gore on 04-24-2025 Creatinine [Mass/Vol] 0.98 mg/dL 0.70-1.20 [facility] Serum globulin measurementOr dered By: Edith Gore on 04-24-2025 Globulin (S) [Mass/Vol] 3.2 g/dL 2.2-4.2 [facility] Serum glucose measurement (m ass/volume)Ordered By: Edith Gore on 04-24-2025 Glucose [Mass/Vol] 92 mg/dL 70-99 [facility] Serum or plasma C reactive p rotein measurement (mass/volume)Ordered By: Edith Gore on 04-24-2025 CRP [Mass/Vol] 54.40 mg/L High 0.0-3.0 [facility] Serum or plasma alanine johnson otransferase (ALT) measurementOrdered By: Edith Gore on 04-24-2025 ALT [Catalytic activity/Vol] 52 U/L High <47 [facility] Serum or plasma albumin cristian urement (mass/volume)Ordered By: Edith Gore on 04-24-2025 Albumin [Mass/Vol] 3.7 g/dL 3.5-5.0 [facility] Serum or plasma albumin/glob ulin mass ratioOrdered By: Edith Gore on 04-24-2025 Albumin/Globulin [Mass ratio] 1.2 {ratio} 0.9-2.4 [facility] Serum or plasma alkaline luis eduardo sphatase measurementOrdered By: Edith Gore on 04-24-2025 ALP [Catalytic activity/Vol] 65 U/L 40-129 [facility] Serum or plasma calcium cristian urement (mass/volume)Ordered By: Edith Gore on 04-24-2025 Calcium [Mass/Vol] 9.2 mg/dL 7.6-11.0 [facility] Serum or plasma urea nitroge n measurement (mass/volume)Ordered By: Edith Gore on 04-24-2025 Urea nitrogen [Mass/Vol] 21 mg/dL High 4-19 [facility] Sodium levelOrdered By: Airam Gore on 04-24-2025 Sodium [Moles/Vol] 139 mmol/L 133-145 [facility] Total proteinOrdered By: Demi Gore on 04-24-2025 Protein [Mass/Vol] 6.9 g/dL 5.9-8.4 [facility] Urinalysis, Routine (Dipstic k)on 04-24-2025 BILIRUBIN URINE Negative Normal Negative [facility] Comment on above: Order Comment: CLEAN CATCH Performed By: #### L 501.0900, L101.9900, L501.6710, L500.4050, L100.0100, L400.2010 #### [facility] [place], [address] Clarity (U) Clear Normal Clear [facility] Comment on above: Order Comment: CLEAN CATCH Performed By: #### L 501.0900, L101.9900, L501.6710, L500.4050, L100.0100, L400.2010 #### [facility] [address] [place], [address] Color (U) Yellow Normal Yellow [facility] Comment on above: Order Comment: CLEAN CATCH Performed By: #### L 501.0900, L101.9900, L501.6710, L500.4050, L100.0100, L400.2010 #### [facility] [address] [place], [address] GLUCOSE, UR 1000 mg/dl Abnormal Normal [facility] Comment on above: Order Comment: CLEAN CATCH Performed By: #### L 501.0900, L101.9900, L501.6710, L500.4050, L100.0100, L400.2010 #### [facility] [address] [place], [address] KETONE UR Negative Normal Negative [facility] Comment on above: Order Comment: CLEAN CATCH Performed By: #### L 501.0900, L101.9900, L501.6710, L500.4050, L100.0100, L400.2010 #### [facility] [address] [place], [address] LEUK ESTERASE Negative Normal Negative [facility] Comment on above: Order Comment: CLEAN CATCH Performed By: #### L 501.0900, L101.9900, L501.6710, L500.4050, L100.0100, L400.2010 #### [facility] [address] [place], [address] Nitrite Ql (U) Negative Normal Negative [facility] Comment on above: Order Comment: CLEAN CATCH Performed By: #### L 501.0900, L101.9900, L501.6710, L500.4050, L100.0100, L400.2010 #### [facility] [address] [place], [address] OCCULT BLOOD-UR 150 /ul Abnormal Negative [facility] Comment on above: Order Comment: CLEAN CATCH Performed By: #### L 501.0900, L101.9900, L501.6710, L500.4050, L100.0100, L400.2010 #### [facility] [address] [place], [address] pH UR 6.0 Normal 5.0 - 8.0 [facility] Comment on above: Order Comment: CLEAN CATCH Performed By: #### L 501.0900, L101.9900, L501.6710, L500.4050, L100.0100, L400.2010 #### [facility] [address] [place], [address] PROT DIPSTX 30 mg/dl Abnormal Negative [facility] Comment on above: Order Comment: CLEAN CATCH Performed By: #### L 501.0900, L101.9900, L501.6710, L500.4050, L100.0100, L400.2010 #### [facility] [address] [place], [address] SP.GR. DIPSTX 1.020 Normal 1.002-1.030 [facility] Comment on above: Order Comment: CLEAN CATCH Performed By: #### L 501.0900, L101.9900, L501.6710, L500.4050, L100.0100, L400.2010 #### [facility] [address] [place], [address] UROBILI Normal Normal Normal [facility] Comment on above: Order Comment: CLEAN CATCH Performed By: #### L 501.0900, L101.9900, L501.6710, L500.4050, L100.0100, L400.2010 #### [facility] [place], [address] Urine clarityOrdered By: Demi Gore on 04-24-2025 Clarity (U) Clear Clear [facility] Urine color determinationOrd ered By: Edith Gore on 04-24-2025 Color (U) Yellow Yellow [facility] Urine glucose detectionOrder ed By: Edith Gore on 04-24-2025 Glucose Ql (U) 1000 mg/dl High Normal [facility] Urine leukocyte esterase det ection by dipstickOrdered By: Edith Gore on 04-24-2025 Leukocyte esterase Test strip Ql (U) Negative Negative [facility] Urine pHOrdered By: Edith garcia on 04-24-2025 pH (U) 6.0 [pH] 5.0 - 8.0 [facility] Urine protein measurement (m ass/volume)Ordered By: Edith Gore on 04-24-2025 Protein (U) [Mass/Vol] 39.1 mg/dL High 0.0-12.0 [facility] Urine protein/creatinine mas s ratioOrdered By: Edith Gore on 04-24-2025 Protein/Creatinine (U) [Mass ratio] 210 mg/g CRE High 0-200 [facility] Urine specific gravity measu rementOrdered By: Edith Gore on 04-24-2025 Specific gravity (U) [Rel density] 1.020 1.002-1.030 [facility] Urine urobilinogen measureme ntOrdered By: Edith Gore on 04-24-2025 Urobilinogen Ql (U) Normal mg/dl Normal [facility] White blood cell (WBC) count Ordered By: Edith Gore on 04-24-2025 WBC (Bld) [#/Vol] 12.4 10*3/uL High 4.4-11.0 [facility] CBC W Auto Differential pane l (Bld)on 04-07-2025 Basophils (Bld) [#/Vol] 0.04 10*3/uL Normal <0.11 [facility] Comment on above: Order Comment: Speci men Type: BLOOD SPECIMEN Ordering Facility: [facility] Address: [address] [place] [address] Performed By: #### 5 7021-8 #### [facility] CLIA [id number] [address] [place] [address] [place] Basophils/100 WBC (Bld) 0.3 % Normal [facility] Comment on above: Order Comment: Speci men Type: BLOOD SPECIMEN Ordering Facility: [facility] Address: [address] [place] [address] Performed By: #### 5 7021-8 #### [facility] CLIA [id number] [address] [place] [address] [place] Differential cell count method Nom (Bld) Auto Normal [facility] Comment on above: Order Comment: Speci men Type: BLOOD SPECIMEN Ordering Facility: [facility] Address: [address] [place] [address] Performed By: #### 5 7021-8 #### [facility] CLIA [id number] [address] [place] [address] [place] Eosinophils (Bld) [#/Vol] 0.08 10*3/uL Normal <0.46 [facility] Comment on above: Order Comment: Speci men Type: BLOOD SPECIMEN Ordering Facility: [facility] Address: [address] [place] [address] Performed By: #### 5 7021-8 #### [facility] CLIA [id number] [address] [place] [address] [place] Eosinophils/100 WBC (Bld) 0.6 % Normal [facility] Comment on above: Order Comment: Speci men Type: BLOOD SPECIMEN Ordering Facility: [facility] Address: [address] [place] [address] Performed By: #### 5 7021-8 #### [facility] CLIA [id number] [address] [place] [address] [place] Erythrocyte distribution width (RBC) [Ratio] 14.3 % Normal 11.5-15.0 [facility] Comment on above: Order Comment: Speci men Type: BLOOD SPECIMEN Ordering Facility: [facility] Address: [address] [place] [address] Performed By: #### 5 7021-8 #### [facility] CLIA [id number] [address] [place] [address] [place] Hematocrit (Bld) [Volume fraction] 43.7 % Normal 39.0-51.0 [facility] Comment on above: Order Comment: Speci men Type: BLOOD SPECIMEN Ordering Facility: [facility] Address: [address] [place] [address] Performed By: #### 5 7021-8 #### [facility] CLIA [id number] [address] [place] [address] [place] Hemoglobin (Bld) [Mass/Vol] 14.1 g/dL Normal 13.0-17.0 [facility] Comment on above: Order Comment: Speci men Type: BLOOD SPECIMEN Ordering Facility: [facility] Address: [address] [place] [address] Performed By: #### 5 7021-8 #### [facility] CLIA [id number] [address] [place] [address] [place] Immature granulocytes (Bld) [#/Vol] 0.12 10*3/uL High <0.10 [facility] Comment on above: Order Comment: Speci men Type: BLOOD SPECIMEN Ordering Facility: [facility] Address: [address] [place] [address] Performed By: #### 5 7021-8 #### [facility] CLIA [id number] [address] [place] [address] [place] Immature granulocytes/100 WBC (Bld) 0.8 % Normal [facility] Comment on above: Order Comment: Speci men Type: BLOOD SPECIMEN Ordering Facility: [facility] Address: [address] [place] [address] Performed By: #### 5 7021-8 #### [facility] CLIA [id number] [address] [place] [address] [place] Lymphocytes (Bld) [#/Vol] 3.39 10*3/uL Normal 1.00-4.00 [facility] Comment on above: Order Comment: Speci men Type: BLOOD SPECIMEN Ordering Facility: [facility] Address: [address] [place] [address] Performed By: #### 5 7021-8 #### [facility] CLIA [id number] [address] [place] [address] [place] Lymphocytes/100 WBC (Bld) 23.5 % Normal [facility] Comment on above: Order Comment: Speci men Type: BLOOD SPECIMEN Ordering Facility: [facility] Address: [address] [place] [address] Performed By: #### 5 7021-8 #### [facility] CLIA [id number] [address] [place] [address] [place] MCH (RBC) [Entitic mass] 28.5 pg Normal 26.0-34.0 [facility] Comment on above: Order Comment: Speci men Type: BLOOD SPECIMEN Ordering Facility: [facility] Address: [address] [place] [address] Performed By: #### 5 7021-8 #### [facility] CLIA [id number] [address] [place] [address] [place] MCHC (RBC) [Mass/Vol] 32.3 g/dL Normal 30.5-36.0 [facility] Comment on above: Order Comment: Speci men Type: BLOOD SPECIMEN Ordering Facility: [facility] Address: [address] [place] [address] Performed By: #### 5 7021-8 #### [facility] CLIA [id number] [address] [place] [address] [place] [place] MCV (RBC) [Entitic vol] 88.5 fL Normal 80.0-100.0 [facility] Comment on above: Order Comment: Speci men Type: BLOOD SPECIMEN Ordering Facility: [facility] Address: [address] [place] [address] Performed By: #### 5 7021-8 #### [facility] CLIA [id number] [address] [place] [address] [place] Monocytes (Bld) [#/Vol] 0.77 10*3/uL Normal <0.87 [facility] Comment on above: Order Comment: Speci men Type: BLOOD SPECIMEN Ordering Facility: [facility] Address: [address] [place] [address] Performed By: #### 5 7021-8 #### [facility] CLIA [id number] [address] [place] [address] [place] Monocytes/100 WBC (Bld) 5.3 % Normal [facility] Comment on above: Order Comment: Speci men Type: BLOOD SPECIMEN Ordering Facility: [facility] Address: [address] [place] [address] Performed By: #### 5 7021-8 #### [facility] CLIA [id number] [address] [place] [address] [place] Neutrophils (Bld) [#/Vol] 10.01 10*3/uL High 1.45-7.50 [facility] Comment on above: Order Comment: Speci men Type: BLOOD SPECIMEN Ordering Facility: [facility] Address: [address] [place] [address] Performed By: #### 5 7021-8 #### [facility] CLIA [id number] [address] [place] [address] [place] Neutrophils/100 WBC (Bld) 69.5 % Normal [facility] Comment on above: Order Comment: Speci men Type: BLOOD SPECIMEN Ordering Facility: [facility] Address: [address] [place] [address] Performed By: #### 5 7021-8 #### [facility] CLIA [id number] [address] [place] [address] [place] Nucleated RBC (Bld) [#/Vol] 10*3/uL Normal <0.01 [facility] Comment on above: Order Comment: Speci men Type: BLOOD SPECIMEN Ordering Facility: [facility] Address: [address] [place] [address] Performed By: #### 5 7021-8 #### [facility] CLIA [id number] [address] [place] [address] [place] Nucleated RBC/100 WBC (Bld) [Ratio] 0.0 /[address] [facility] Comment on above: Order Comment: Speci men Type: BLOOD SPECIMEN Ordering Facility: [facility] Address: [address] [place] [address] Performed By: #### 5 7021-8 #### [facility] CLIA [id number] [address] [place] [address] [place] Platelet mean volume (Bld) [Entitic vol] 8.5 fL Low 9.0-12.7 [facility] Comment on above: Order Comment: Speci men Type: BLOOD SPECIMEN Ordering Facility: [facility] Address: [address] [place] [address] Performed By: #### 5 7021-8 #### [facility] CLIA [id number] [address] [place] [address] [place] Platelets (Bld) [#/Vol] 262 10*3/uL Normal 150-400 [facility] Comment on above: Order Comment: Speci men Type: BLOOD SPECIMEN Ordering Facility: [facility] Address: [address] [place] [address] Performed By: #### 5 7021-8 #### [facility] CLIA [id number] [address] [place] [address] [place] RBC (Bld) [#/Vol] 4.94 10*6/uL Normal 4.20-6.00 [facility] Comment on above: Order Comment: Speci men Type: BLOOD SPECIMEN Ordering Facility: [facility] Address: [address] [place] [address] Performed By: #### 5 7021-8 #### [facility] CLIA [id number] [address] [place] [address] [place] WBC (Bld) [#/Vol] 14.41 10*3/uL High 3.70-11.00 [facility] Comment on above: Order Comment: Speci men Type: BLOOD SPECIMEN Ordering Facility: [facility] Address: [address] [place] [address] Performed By: #### 5 7021-8 #### [facility] CLIA [id number] [address] [place] [address] [facility] Comprehensive metabolic 2000 panelon 04-07-2025 Albumin [Mass/Vol] 3.5 g/dL Low 3.9-4.9 [facility] Comment on above: Order Comment: Speci men Type: BLOOD SPECIMEN Ordering Facility: [facility] Address: [address] [place] [address] Performed By: #### 2 4323-8, [id number], 01847-1 #### [facility] CLIA [id number] [address] [place] [address] [place] ALP [Catalytic activity/Vol] 61 U/L Normal 38-113 [facility] Comment on above: Order Comment: Speci men Type: BLOOD SPECIMEN Ordering Facility: [facility] Address: [address] [place] [address] Performed By: #### 2 4323-8, [id number], 41709-8 #### [facility] CLIA [id number] [address] [place] [address] [place] ALT [Catalytic activity/Vol] 51 U/L Normal 10-54 [facility] Comment on above: Order Comment: Speci men Type: BLOOD SPECIMEN Ordering Facility: [facility] Address: [address] [place] [address] Performed By: #### 2 4323-8, [id number], 42092-1 #### [facility] CLIA [id number] [address] [place] [address] [place] Anion gap [Moles/Vol] 11 mmol/L Normal 8-15 [facility] Comment on above: Order Comment: Speci men Type: BLOOD SPECIMEN Ordering Facility: [facility] Address: [address] [place] [address] Performed By: #### 2 4323-8, [id number], 15491-9 #### [facility] CLIA [id number] [address] [place] [address] [place] AST [Catalytic activity/Vol] 20 U/L Normal 14-40 [facility] Comment on above: Order Comment: Speci men Type: BLOOD SPECIMEN Ordering Facility: [facility] Address: [address] [place] [address] Performed By: #### 2 4323-8, [id number], 65803-9 #### [facility] CLIA [id number] [address] [place] [address] [place] Bilirubin [Mass/Vol] 0.2 mg/dL Normal 0.2-1.3 [facility] Comment on above: Order Comment: Speci men Type: BLOOD SPECIMEN Ordering Facility: [facility] Address: [address] [place] [address] Performed By: #### 2 4323-8, [id number], 85950-9 #### [facility] CLIA [id number] [address] [place] [address] [place] Calcium [Mass/Vol] 9.0 mg/dL Normal 8.5-10.2 [facility] Comment on above: Order Comment: Speci men Type: BLOOD SPECIMEN Ordering Facility: [facility] Address: [address] [place] [address] Performed By: #### 2 4323-8, [id number], 12650-0 #### [facility] CLIA [id number] [address] [place] [address] [place] Chloride [Moles/Vol] 102 mmol/L Normal 98-107 [facility] Comment on above: Order Comment: Speci men Type: BLOOD SPECIMEN Ordering Facility: [facility] Address: [address] [place] [address] Performed By: #### 2 4323-8, [id number], 49861-2 #### [facility] CLIA [id number] [address] [place] [address] [place] CO2 [Moles/Vol] 23 mmol/L Normal 22-30 [facility] Comment on above: Order Comment: Speci men Type: BLOOD SPECIMEN Ordering Facility: [facility] Address: [address] [place] [address] Performed By: #### 2 4323-8, [id number], 37605-6 #### [facility] CLIA [id number] [address] [place] [address] [place] Creatinine [Mass/Vol] 0.89 mg/dL Normal 0.73-1.22 [facility] Comment on above: Order Comment: Carlita zamudio Type: BLOOD SPECIMEN Ordering Facility: [facility] Address: [address] [place] [address] Performed By: #### 2 4323-8, [id number], 59500-5 #### [facility] CLIA [id number] [address] [place] [address] [place] Creatinine and Glomerular filtration rate.predicted panel (S/P/Bld) 112 mL/min/1.73m??? Normal >=60 [facility] Comment on above: Order Comment: Carlita zamudio Type: BLOOD SPECIMEN Ordering Facility: [facility] Address: [address] [place] [address] Result Comment: Ana mated Glomerular Filtration Rate (eGFR) is calculated using the 2020 CKD-EPI creatinine equation. This equation utilizes serum creatinine, sex, and age as parameters. The creatinine assay has traceable calibration to isotope dilution-mass spectrometry. Refer to KDIGO guidelines for clinical interpretation. In patients with unstable renal function, e.g. those with acute kidney injury, the eGFR may not accurately reflect actual GFR. Performed By: #### 2 4323-8, [id number], 92575-0 #### [facility] CLIA [id number] [address] [place] [address] [place] Glucose [Mass/Vol] 122 mg/dL High 74-99 [facility] Comment on above: Order Comment: Carlita zamudio Type: BLOOD SPECIMEN Ordering Facility: [facility] Address: [address] [place] [address] Result Comment: The [place] [employer] (ADA) provides guidance for cutoff values for fasting glucose and random glucose. The ADA defines fasting as no caloric intake for at least 8 hours. Fasting plasma glucose results between 100 to 125 mg/dL indicate increased risk for diabetes (prediabetes). Fasting plasma glucose results greater than or equal to 126 mg/dL meet the criteria for diagnosis of diabetes. In the absence of unequivocal hyperglycemia, results should be confirmed by repeat testing. In a patient with classic symptoms of hyperglycemia or hyperglycemic crisis, random plasma glucose results greater than or equal to 200 mg/dL meet the criteria for diagnosis of diabetes. Reference: Standards of Medical Care in Diabetes 2016, [place] [employer]. Diabetes Care. 2016.39(Suppl 1). Performed By: #### 2 4323-8, [id number], 98022-4 #### [facility] CLIA [id number] [address] [place] [address] [place] Potassium [Moles/Vol] 3.8 mmol/L Normal 3.7-5.1 [facility] Comment on above: Order Comment: Carlita zamudio Type: BLOOD SPECIMEN Ordering Facility: [facility] Address: [address] [place] [address] Performed By: #### 2 4323-8, [id number], 84682-4 #### [facility] CLIA [id number] [address] [place] [address] [place] Protein [Mass/Vol] 6.1 g/dL Low 6.3-8.0 [facility] Comment on above: Order Comment: Carliat zamudio Type: BLOOD SPECIMEN Ordering Facility: [facility] Address: [address] [place] [address] Performed By: #### 2 4323-8, [id number], 68400-6 #### [facility] CLIA [id number] [address] [place] [address] [place] Sodium [Moles/Vol] 136 mmol/L Normal 136-144 [facility] Comment on above: Order Comment: Rickyi robb Type: BLOOD SPECIMEN Ordering Facility: [facility] Address: [address] [place] [address] Performed By: #### 2 4323-8, [id number], 75689-9 #### [facility] CLIA [id number] [address] [place] [address] [place] Urea nitrogen [Mass/Vol] 27 mg/dL High 9-24 [facility] Comment on above: Order Comment: Speci men Type: BLOOD SPECIMEN Ordering Facility: [facility] Address: [facility] [place] [address] Performed By: #### 2 4323-8, [id number], 13274-8 #### [facility] CLIA [id number] [address] [place] [address] [place] ECG COMPLETEon 04-07-2025 ECG COMPLETE Ventricular Rate : 8 9 BPM Atrial Rate : 89 BPM P-R Interval : 134 ms QRS Duration : 72 ms Q-T Interval : 330 ms QTC Calculation(Bazett) : 401 ms Calculated P [place] : 36 degrees Calculated R [place] : -13 degrees Calculated T [place] : 35 degrees Normal sinus rhythm Inferior infarct , age undetermined Abnormal ECG No previous ECGs available Confirmed by ALINA ALVAREZ MD ([id number]) on 04/09/2025 1:38:23 PM NAME : KRYSTEN CROOK PID : [id number] : 1985 Gender : Male Race : ORD : [id number] Procedure Date : Apr 07 2025 19:31:26 Edit Date : Apr 09 2025 13:38:26 Diagnosis: Normal sinus rhythm Inferior infarct , age undetermined Abnormal ECG No previous ECGs available Confirmed by ALINA ALVAREZ MD ([id number]) on 04/09/2025 1:38:23 PM Test Reason : HCS Location : 3 : ED ED Overread By : ALINA ALVAREZ MD Edited By : ALINA ALVAREZ MD Referred By : , Acquired by : MICHELLE JIMENEZ [facility] ED NOTEon 04-07-2025 ED NOTE HNO ID: [id number] Author: XIMENA LEIJA RN Service: ? Author Type: Registered Nurse Type: ED Notes Filed: 04/07/2025 22:31 Note Text: Patient declines waiting for discharge for 30-45 minutes after receiving intravenous lasix; MD Sanders Current notified. Patient declines wheel chair for discharge. [facility] ED NOTE HNO ID: [id number] Author: ANKUSH PEGUERO RN Service: Nursing Author Type: Registered Nurse Type: ED Notes Filed: 04/07/2025 20:55 Note Text: Report given to SHEELA Anguiano [facility] ED NOTE HNO ID: [id number] Author: OCTAVIANO, KEIRA, RN Service: ? Author Type: Registered Nurse Type: ED Notes Filed: 04/07/2025 18:28 Note Text: Patient c/o general body swelling that began today. [facility] ED PROV NOTEon 04-07-2025 ED PROV NOTE HNO ID: [id number] Author: ANNE ARENAS DO Service: Emergency Medicine Author Type: Physician Type: ED Provider Notes Filed: 04/07/2025 23:37 Note Text: ED Provider Note Patient Name: Krysten Crook : 1985 SERVICE DATE: 04/07/25 History Patient presents with: Edema Mr. Crook is a 39-year-old male who presents to the ED for evaluation of edema. Patient reports that he feels generally swollen with some increasing lower extremity edema. Patient is on long-term steroid therapy for a history of IgA nephropathy and IgA mediated vasculitis. Patient had a recent biopsy that showed he had some active disease on the kidney and he has been on a steroid regimen since. Patient reports he has been on steroids for the last few months but recently had decreased to 20 mg of prednisone daily a few days ago. Patient states he had similar swelling in the past that improved once he received a dose of diuretics. Patient reports normal urinary output and denies any dysuria or significant change in urinary frequency. He denies any associated fever, chills, nausea or vomiting. PAST MEDICAL HISTORY Diagnosis Date Hypercholesterolemia PAST SURGICAL HISTORY Procedure Laterality Date DENTAL SURGERY HX FAMILY HISTORY Problem Relation Age of Onset Cancer Maternal Grandfather Hypertension Maternal Grandfather Diabetes Maternal Grandfather Social History Tobacco Use Smoking status: Former Current packs/day: 0.00 Average packs/day: 0.5 packs/day for 10.0 years (5.0 ttl pk-yrs) Types: Cigarettes Start date: 2008 Quit date: 2019 Years since quittin.4 Smokeless tobacco: Former Types: Chew Quit date: 2021 Vaping Use Vaping status: current everyday user Substances: Nicotine Substance and Sexual Activity Alcohol use: Yes Comment: occasional Drug use: Never Sexual activity: Yes Partners: Female control/protection: Surgical ALLERGIES Allergen Reactions Keflex [Cephalexin] Hives Review of Systems All pertinent positives and negatives as per HPI, otherwise negative. Physical Exam Vitals [04/07/25 1828] BP Pulse Temp Temp src Resp SpO2 Weight Height 95/78 (!) 118 36.7 ?C (98.1 ?F) Oral 20 97 % (!) 142.8 kg (314 lb 13.1 oz) 1.727 m (5' 8) Physical Exam Vitals and nursing note reviewed. Constitutional: General: He is not in acute distress. Appearance: He is not ill-appearing, toxic-appearing or diaphoretic. HENT: Head: Normocephalic. Nose: Nose normal. No congestion. Mouth/Throat: Mouth: Mucous membranes are moist. Eyes: General: No scleral icterus. Pupils: Pupils are equal, round, and reactive to light. Cardiovascular: Rate and Rhythm: Regular rhythm. Tachycardia present. Pulses: Normal pulses. Heart sounds: No murmur heard. Comments: Distal pulses equal and intact in all four extremities. No calf pain or peripheral edema. Pulmonary: Effort: Pulmonary effort is normal. No respiratory distress. Breath sounds: Normal breath sounds. Abdominal: General: Abdomen is flat. Tenderness: There is no abdominal tenderness. There is no guarding. Musculoskeletal: General: No swelling or deformity. Normal range of motion. Cervical back: Normal range of motion. No tenderness. Comments: Patient with obese abdomen. Trace pitting edema appreciated in the lower extremities. Patient states that his hands feel puffy however he has no erythema or significant swelling appreciated. Cardinal motions of the hands are intact Skin: General: Skin is warm. Capillary Refill: Capillary refill takes less than 2 seconds. Findings: No rash. Neurological: General: No focal deficit present. Mental Status: He is alert and oriented to person, place, and time. Motor: No weakness. Psychiatric: Mood and Affect: Mood normal. Behavior: Behavior normal. Diagnostic Testing ED Labs Ordered and Reviewed - No data to display Procedures ED Course / Clinical Impression ED Course as of 04/07/252200 Susannah, Anne Lugo's Documentation Sat Apr 07, 20252007 WBC(!): 14.41 Suspect secondary to patient's steroid course. Clinical Impressions as of 04/07/252200 Bilateral lower extremity edema IgA nephropathy MDM / Disposition / Plan Mr. Crook is a 39-year-old male who presents to the ED for evaluation of edema. Patient reports that he has been on a long-term steroid regimen for IgA nephropathy and IgA vasculitis. Patient has had edema with steroids in the past similar to today's presentation. He presents requesting IV diuretics stating that this had given him some improvement in the past. Some basic labs were obtained and he has a mild leukocytosis which I suspect is reactive to his recent steroid course. Renal function is preserved with no significant electrolyte derangement. BNP is without elevation consistent with heart failure. Chest x-ray showed no acute cardiopulmonary abnormality. I suspect patient's (more content not included)... Normal [facility] ED Triage Noteon 04-07-2025 ED Triage Note HNO ID: [id number] Author: TRICIA ALBA APRN.CNP Service: Emergency Medicine Author Type: Nurse Practitioner Type: ED Triage Notes Filed: 04/07/2025 18:35 Note Text: ED TRIAGE PROVIDER NOTE Patient Name: Krysten Crook Service Date: 04/07/25 BRIEF HPI: This is a 39 year old male who presents to the ED with: water retention, swelling to both lower legs and hands. Currently taking Prednisone for vasculitis. Denies fever or chills. Denies chest pain or shortness of breath. BRIEF EXAM: NAD Awake and Alert Non labored breathing No focal neurological deficits INITIAL WORKUP AND DECISION MAKING: Orders Placed This Encounter XR CHEST 1V FRONTAL PORT Comp Metabolic Panel CBC + AUTO DIFF Urinalysis w Microscopic, reflex Culture NT PRO BNP High Sensitivity Troponin T with Reflex for ED Chest Pain ECG COMPLETE The patient was seen by me in triage for a brief history and physician exam, which was obtained for triage reasons only. My exam is intended to be an initial medical screening exam for disposition within the ED with limited initial orders placed, when appropriate, to expedite care by the treating team. The remainder of testing, treatment and diagnostic plan will be assumed by the next provider who will be seeing the patient as a primary patient. See other physician/FINISHED CLOTH EXAMINER/PA notation. SIGNATURE: Tricia Alba APRN.CNP Normal [facility] HIGH SENSITIVITY TROPONIN T (INITIAL)on 04-07-2025 Troponin T.cardiac High sensitivity method [Mass/Vol] <6 Normal <12 [facility] Comment on above: Order Comment: Speci men Type: BLOOD SPECIMEN Ordering Facility: [facility] Address: [address] [place] [address] Performed By: #### 2 4323-8, [id number], 58368-4 #### [facility] CLIA [id number] [address] [place] [address] [place] HIGH SENSITIVITY TROPONIN T (SECOND)on 04-07-2025 Troponin T.cardiac High sensitivity method [Mass/Vol] <6 Normal <12 [facility] Comment on above: Order Comment: Speci men Type: BLOOD SPECIMENOrdering Facility: [facility] Address: [address] [place] [address] Performed By: #### L [id number] ####[facility] [id number] [address] [place] NT-proBNP SerPl[facility] Natriuretic peptide.B prohormone N-Terminal [Mass/Vol] <36 Normal <125 [facility] Comment on above: Order Comment: Speci men Type: BLOOD SPECIMEN Ordering Facility: [facility] Address: [address] [place] [address] Performed By: #### 2 4323-8, [id number], 70297-8 #### [facility] CLIA [id number] [address] [place] [address] [place] Urinalysis complete panel (U )on 04-07-2025 Bilirubin Ql (U) Negative Normal Negative [facility] Comment on above: Order Comment: Speci men Type: URINE SPECIMEN Ordering Facility: [facility] Address: [address] [place] [address] Performed By: #### 2 4356-8 #### [facility] CLIA [id number] [address] [place] [address] [place] Clarity (Unsp spec) Clear Normal Clear [facility] Comment on above: Order Comment: Speci men Type: URINE SPECIMEN Ordering Facility: [facility] Address: [address] [place] [address] Performed By: #### 2 4356-8 #### [facility] CLIA [id number] [address] [place] [address] [place] Color (U) Yellow Normal Yellow [facility] Comment on above: Order Comment: Speci men Type: URINE SPECIMEN Ordering Facility: [facility] Address: [address] [place] [address] Performed By: #### 2 4356-8 #### [facility] CLIA [id number] [address] [place] [address] Glucose Test strip (U) [Mass/Vol] 2+ Abnormal Negative [facility] Comment on above: Order Comment: Speci men Type: URINE SPECIMEN Ordering Facility: [facility] Address: [address] [place] [address] Performed By: #### 2 4356-8 #### [facility] CLIA [id number] [address] [place] [address] [place] Hemoglobin Ql (U) 2+ Abnormal Negative [facility] Comment on above: Order Comment: Speci men Type: URINE SPECIMEN Ordering Facility: [facility] Address: [address] [place] [address] Performed By: #### 2 4356-8 #### [facility] CLIA [id number] [address] [place] [address] [place] Ketones Ql (U) Negative Normal Negative [facility] Comment on above: Order Comment: Speci men Type: URINE SPECIMEN Ordering Facility: [facility] Address: [address] [place] [address] Performed By: #### 2 4356-8 #### [facility] CLIA [id number] [address] [place] [address] [place] Leukocyte esterase Test strip Ql (U) Negative Normal Negative [facility] Comment on above: Order Comment: Speci men Type: URINE SPECIMEN Ordering Facility: [facility] Address: [address] [place] [address] Performed By: #### 2 4356-8 #### [facility] CLIA [id number] [address] [place] [address] [place] Nitrite Ql (U) Negative Normal Negative [facility] Comment on above: Order Comment: Speci men Type: URINE SPECIMEN Ordering Facility: [facility] Address: [address] [place] [address] Performed By: #### 2 4356-8 #### [facility] CLIA [id number] [address] [place] [address] [place] pH (U) 6.0 [pH] Normal 5.0-8.0 [facility] Comment on above: Order Comment: Speci men Type: URINE SPECIMEN Ordering Facility: [facility] Address: [address] [place] [address] Performed By: #### 2 4356-8 #### [facility] CLIA [id number] [address] [place] [address] [place] Protein (U) [Mass/Vol] 1+ Abnormal Negative [facility] Comment on above: Order Comment: Speci men Type: URINE SPECIMEN Ordering Facility: [facility] Address: [address] [place] [address] Performed By: #### 2 4356-8 #### [facility] CLIA [id number] [address] [place] [address] [place] RBC LM.HPF (Urine sed) [#/Area] 0-3 /HPF Normal 0-3 /HPF [facility] Comment on above: Order Comment: Speci men Type: URINE SPECIMEN Ordering Facility: [facility] Address: [address] [place] [address] Performed By: #### 2 4356-8 #### [facility] CLIA [id number] [address] [place] [address] [place] Specific gravity (U) [Rel density] >=1.030 Normal 1.005-1.030 [facility] Comment on above: Order Comment: Speci men Type: URINE SPECIMEN Ordering Facility: [facility] Address: [address] [place] [address] Performed By: #### 2 4356-8 #### [facility] CLIA [id number] [address] [place] [address] [place] Urobilinogen Ql (U) 0.2 EU/dL Normal 0.2-1.0 EU/dL [facility] Comment on above: Order Comment: Speci men Type: URINE SPECIMEN Ordering Facility: [facility] Address: [address] [place] [address] Performed By: #### 2 4356-8 #### [facility] CLIA [id number] [address] [place], [place] [address] [place] WBC LM.HPF (Urine sed) [#/Area] 0-5 /HPF Normal 0-5 /HPF [facility] Comment on above: Order Comment: Speci men Type: URINE SPECIMEN Ordering Facility: [facility] Address: [address] [place] [id number] Performed By: #### 2 4356-8 #### [facility] CLIA [id number] [address] [place], [place] [address] [place] XR CHEST 1V FRONTAL PORTon 0 04-07-2025 XR CHEST 1V FRONTAL PORT * * *Final Report* * * DATE OF EXAM: Apr 07 2025 7:47PM UDX 5376 - XR CHEST 1V FRONTAL PORT / PROCEDURE REASON: Tachycardia * * * * Physician Interpretation * * * * EXAMINATION: CHEST RADIOGRAPH (PORTABLE SINGLE VIEW AP) Exam Date/Time: 04/07/2025 7:47 PM CLINICAL HISTORY: Tachycardia MQ: XCPR_5 Comparison: 06/24/2024. RESULT: This is a limited examination due to the patient's size and portable technique. Lines, tubes, and devices: None. Lungs and pleura: There is hypoinflation of the lungs with crowded lung markings in both lung bases. No definite infiltrate. The pleural margins appear normal. Cardiomediastinal silhouette: Stable cardiomediastinal silhouette. Other: The visualized bony thorax appears unremarkable. IMPRESSION: Stable exam with no definite acute disease. Ply Cutter: PSCB Transcribe Date/Time: Apr 07 2025 8:42P Dictated by : YASMEEN MARSHALL MD This examination was interpreted and the report reviewed and electronically signed by: YASMEEN MARSHALL MD on Apr 07 2025 8:43PM EST [id number] Normal [facility] 04-06-2025 [place] [address] Patient: KRYSTEN CROOK V. Phone#: : 1985 Age: 39 Gender: M Pt. Type: Out Account: [id number] Location: [facility] Ordering: EDITH GORE Exam Date: 04/06/2025/11:11 Family Phys: HUY Pinzon PAGE Charge Code: 227482 Physician: [place] Order #: [id number] Dose#: PROCEDURE: LIVER ULTRASOUND COMPARISON: None. INDICATIONS: Elevated liver enzymes TECHNIQUE: High resolution sonographic examination was performed of the abdomen. FINDINGS: LIVER: Visualization is limited by patient body habitus. The liver is difficult to penetrate raising possibility of cirrhotic changes. BILIARY: Normal. Normal appearing gallbladder and biliary tree. The common bile duct is 4.0 millimeters. PANCREAS: Normal. No visible mass, abnormal atrophy, or ductal dilatation. RIGHT KIDNEY: Normal. No mass or obstruction. OTHER: Negative. CONCLUSION: 1. Limited evaluation due to patient body habitus. 2. Penetration liver is suboptimal. Cirrhotic changes cannot be excluded. Dictated by: Ale Hopkins MD on 04/06/2025 at 19:27 Approved by: Ale Hopkins MD on 04/06/2025 at 19:35 Normal [facility] Absolute lymphocyte countOrd ered By: Cayla Logan on 03-26-2025 Lymphocytes Auto (Unsp spec) [#/Vol] 2.43 10*3/uL 0.83-4.51 [facility] Absolute neutrophil countOrd ered By: Cayla Logan on 03-26-2025 Neutrophils (Bld) [#/Vol] 13.7 10*3/uL High 2.0-7.7 [facility] Anion gap in Serum or Plasma Ordered By: Cayla Logan on 03-26-2025 Anion gap [Moles/Vol] 11 mmol/L 5-15 [facility] Automated lymphocyte count a s percentage of total leukocytesOrdered By: Cayla Logan on 03-26-2025 Lymphocytes/100 WBC Auto (Unsp spec) 14.1 % Low 19-41 [facility] BUN/creatinine ratioOrdered By: Cayla Logan on 03-26-2025 Urea nitrogen/Creatinine [Mass ratio] 27.6 mg/mg High - [facility] Basic Metabolic Profile (BMP )on 03-26-2025 BUN/CRE 27.6 RATIO High 08-06 [facility] Comment on above: Performed By: #### L 501.0900, L101.9900, L501.6710, L500.4050, L100.0100, L400.2010 #### [facility] [address] [place], [address] Calcium [Mass/Vol] 9.1 mg/dL Normal 7.6-11.0 [facility] Comment on above: Performed By: #### L 501.0900, L101.9900, L501.6710, L500.4050, L100.0100, L400.2010 #### [facility] [address] [place], [address] Chloride [Moles/Vol] 100 mmol/L Normal 98-108 [facility] Comment on above: Performed By: #### L 501.0900, L101.9900, L501.6710, L500.4050, L100.0100, L400.2010 #### [facility] [address] [place], [address] CO2 [Moles/Vol] 23.4 mmol/L Normal 21.0-32.0 [facility] Comment on above: Performed By: #### L 501.0900, L101.9900, L501.6710, L500.4050, L100.0100, L400.2010 #### [facility] [address] [place], [address] Creatinine [Mass/Vol] 0.80 mg/dL Normal 0.70-1.20 [facility] Comment on above: Performed By: #### L 501.0900, L101.9900, L501.6710, L500.4050, L100.0100, L400.2010 #### [facility] [address] [place], [address] GAP 11 Normal 5-15 [facility] Comment on above: Performed By: #### L 501.0900, L101.9900, L501.6710, L500.4050, L100.0100, L400.2010 #### [facility] [address] [place], [address] GFR/1.73 sq M.predicted among non-blacks MDRD (S/P/Bld) [Vol rate/Area] 116 mL/min/{1.73_m2} Normal >60 [facility] Comment on above: Result Comment: mL/m in/1.73m2 CKD-EPI Creatinine Equation (2020) Performed By: #### L 501.0900, L101.9900, L501.6710, L500.4050, L100.0100, L400.2010 #### [facility] [address] [place], [address] Glucose [Mass/Vol] 106 mg/dL High 70-99 [facility] Comment on above: Performed By: #### L 501.0900, L101.9900, L501.6710, L500.4050, L100.0100, L400.2010 #### [facility] [address] [place], [address] Potassium [Moles/Vol] 4.2 mmol/L Normal 3.3-5.1 [facility] Comment on above: Performed By: #### L 501.0900, L101.9900, L501.6710, L500.4050, L100.0100, L400.2010 #### [facility] [address] [place], [address] Sodium [Moles/Vol] 135 mmol/L Normal 133-145 [facility] Comment on above: Performed By: #### L 501.0900, L101.9900, L501.6710, L500.4050, L100.0100, L400.2010 #### [facility] [address] [place], [address] Urea nitrogen [Mass/Vol] 22 mg/dL High 4-19 [facility] Comment on above: Performed By: #### L 501.0900, L101.9900, L501.6710, L500.4050, L100.0100, L400.2010 #### [facility] [address] [place], [address] Basophil percentageOrdered B y: Cayla Logan on 03-26-2025 Basophils/100 WBC (Bld) 0.3 % 0-1 [facility] CBC W/Diff, Automatedon Absolute Lymph 2.43 X10 3/uL Normal 0.83-4.51 [facility] Comment on above: Performed By: #### L 500.2500, L506.1001, L100.0100, L501.1400, L501.0900, L509.1000 #### [facility] [address] [place], [address] Absolute Neut 13.7 X10 3/uL High 2.0-7.7 [facility] Comment on above: Performed By: #### L 500.2500, L506.1001, L100.0100, L501.1400, L501.0900, L509.1000 #### [facility] [address] [place], [address] Basophils/100 WBC (Bld) 0.3 % Normal 0-1 [facility] Comment on above: Performed By: #### L 500.2500, L506.1001, L100.0100, L501.1400, L501.0900, L509.1000 #### [facility] [address] [place], [address] Eosinophils/100 WBC (Bld) 0.1 % Normal 0-5 [facility] Comment on above: Performed By: #### L 500.2500, L506.1001, L100.0100, L501.1400, L501.0900, L509.1000 #### [facility] [address] [place], [address] Erythrocyte distribution width (RBC) [Ratio] 14.4 % Normal 11.6-14.6 [facility] Comment on above: Performed By: #### L 500.2500, L506.1001, L100.0100, L501.1400, L501.0900, L509.1000 #### [facility] [address] [place], [address] Hematocrit (Bld) [Volume fraction] 47.8 % Normal 40-54 [facility] Comment on above: Performed By: #### L 500.2500, L506.1001, L100.0100, L501.1400, L501.0900, L509.1000 #### [facility] [address] [place], [address] Hemoglobin (Bld) [Mass/Vol] 15.6 g/dL Normal 13.0-16.5 [facility] Comment on above: Performed By: #### L 500.2500, L506.1001, L100.0100, L501.1400, L501.0900, L509.1000 #### [facility] [address] [place], [address] IG% 0.900 Normal 0.0-0.9 [facility] Comment on above: Result Comment: IG% - Immature Granulocytes (promyelocytes, myelocytes and metamyelocytes) > 1% indicates that a LEFT SHIFT is Present. Performed By: #### L 500.2500, L506.1001, L100.0100, L501.1400, L501.0900, L509.1000 #### [facility] [address] [place], [address] Lymphocytes/100 WBC (Bld) 14.1 % Low 19-41 [facility] Comment on above: Performed By: #### L 500.2500, L506.1001, L100.0100, L501.1400, L501.0900, L509.1000 #### [facility] [address] [place], [address] MCH (RBC) [Entitic mass] 28.9 pg Normal 27.0-32.0 [facility] Comment on above: Performed By: #### L 500.2500, L506.1001, L100.0100, L501.1400, L501.0900, L509.1000 #### [facility] [address] [place], [address] MCHC (RBC) [Mass/Vol] 32.6 g/dL Normal 32-36 [facility] Comment on above: Performed By: #### L 500.2500, L506.1001, L100.0100, L501.1400, L501.0900, L509.1000 #### [facility] [address] [place], [address] MCV (RBC) [Entitic vol] 88.5 fL Normal 80-94 [facility] Comment on above: Performed By: #### L 500.2500, L506.1001, L100.0100, L501.1400, L501.0900, L509.1000 #### [facility] [address] [place], [address] Monocytes/100 WBC (Bld) 4.9 % Normal 0-10 [facility] Comment on above: Performed By: #### L 500.2500, L506.1001, L100.0100, L501.1400, L501.0900, L509.1000 #### [facility] [address] [place], [address] Neutrophils/100 WBC (Bld) 79.7 % High 47-70 [facility] Comment on above: Performed By: #### L 500.2500, L506.1001, L100.0100, L501.1400, L501.0900, L509.1000 #### [facility] [address] [place], [address] Nucleated RBC (Bld) [#/Vol] 0 10*3/uL Normal 0-5 [facility] Comment on above: Performed By: #### L 500.2500, L506.1001, L100.0100, L501.1400, L501.0900, L509.1000 #### [facility] [address] [place], [address] Platelet mean volume (Bld) [Entitic vol] 9.1 fL Normal 6.2-12.0 [facility] Comment on above: Performed By: #### L 500.2500, L506.1001, L100.0100, L501.1400, L501.0900, L509.1000 #### [facility] [address] [place], [address] Platelets (Bld) [#/Vol] 309 10*3/uL Normal 150-450 [facility] Comment on above: Performed By: #### L 500.2500, L506.1001, L100.0100, L501.1400, L501.0900, L509.1000 #### [facility] [address] [place], [address] RBC (Bld) [#/Vol] 5.40 10*6/uL Normal 4.6-6.2 [facility] Comment on above: Performed By: #### L 500.2500, L506.1001, L100.0100, L501.1400, L501.0900, L509.1000 #### [facility] [address] [place], [address] RDW SD 46.4 fl High 35.1-43.9 [facility] Comment on above: Performed By: #### L 500.2500, L506.1001, L100.0100, L501.1400, L501.0900, L509.1000 #### [facility] [address] [place], [address] WBC (Bld) [#/Vol] 17.2 10*3/uL High 4.4-11.0 [facility] Comment on above: Performed By: #### L 500.2500, L506.1001, L100.0100, L501.1400, L501.0900, L509.1000 #### [facility] [address] [place], [address] Carbon dioxide, total [Moles /volume] in Central venous bloodOrdered By: avzulma Bucktowarsing on 03-26-2025 CO2 [Moles/Vol] 23.4 mmol/L 21.0-32.0 [facility] Chloride assayOrdered By: avzulma Bucktowarsing on 03-26-2025 Chloride [Moles/Vol] 100 mmol/L 98-108 [facility] Eosinophil percentageOrdered By: Bhavnish Bucktowarsing on 03-26-2025 Eosinophils/100 WBC (Bld) 0.1 % 0-5 [facility] Erythrocyte distribution wid th ratioOrdered By: avnish Bucktowarsing on 03-26-2025 Erythrocyte distribution width (RBC) [Ratio] 14.4 % 11.6-14.6 [facility] Erythrocyte distribution wid th standard deviationOrdered By: [facility] Buckwarsing on 03-26-2025 Erythrocyte distribution width (RBC) [Ratio] 46.4 fl High 35.1-43.9 [facility] Glomerular filtration rate ( GFR) estimation/1.73 sq m using serum, plasma, or whole bOrdered By: Bhalessandro Bucktowarsing on 03-26-2025 GFR/1.73 sq M.predicted among non-blacks MDRD (S/P/Bld) [Vol rate/Area] 116 mL/min/{1.73_m2} >60 [facility] Comment on above: mL/min/1.73m2 CKD-EP I Creatinine Equation (2020) Hematocrit Auto (Bld) [Volum e fraction]Ordered By: alessandro Logan on 03-26-2025 Hematocrit (Bld) [Volume fraction] 47.8 % 40-54 [facility] Hemoglobin measurementOrdere d By: [facility] on 03-26-2025 Hemoglobin (Bld) [Mass/Vol] 15.6 g/dL 13.0-16.5 [facility] Immature granulocytes/100 WB C Auto (Bld)Ordered By: [facility] on 03-26-2025 Immature granulocytes/100 WBC (Bld) 0.900 % 0.0-0.9 [facility] Comment on above: IG% - Immature Granu locytes (promyelocytes, myelocytes and metamyelocytes) > 1% indicates that a LEFT SHIFT is Present. MCV (mean corpuscular volume ) determinationOrdered By: alessandro [facility] on 03-26-2025 MCV (RBC) [Entitic vol] 88.5 fL 80-94 [facility] Mean corpuscular hemoglobin (MCH) determinationOrdered By: [facility] on 03-26-2025 MCH (RBC) [Entitic mass] 28.9 pg 27.0-32.0 [facility] Mean corpuscular hemoglobin concentration (MCHC) determinationOrdered By: [facility] on 03-26-2025 MCHC (RBC) [Mass/Vol] 32.6 g/dL 32-36 [facility] Mean platelet volume determi nationOrdered By: [facility] Corporation[facility]ulma [facility] on 03-26-2025 Platelet mean volume (Bld) [Entitic vol] 9.1 fL 6.2-12.0 [facility] Monocyte percentageOrdered B y: alessandro Lopezwarsing on 03-26-2025 Monocytes/100 WBC (Bld) 4.9 % 0-10 [facility] Neutrophil percentageOrdered By: [facility] Corporationzulma [facility] on 03-26-2025 Neutrophils/100 WBC (Bld) 79.7 % High 47-70 [facility] Nucleated red blood cell per centageOrdered By: Cayla Logan on 03-26-2025 Nucleated RBC/100 WBC (Bld) [Ratio] 0 % 0-5 [facility] PTHINon 03-26-2025 PTH 50 pg/mL Normal 11-61 [facility] Comment on above: Performed By: #### L 500.2500, L506.1001, L100.0100, L501.1400, L501.0900, L509.1000 #### [facility] [address] [place], [address] Platelet countOrdered By: Kaye Logan on 03-26-2025 Platelets (Bld) [#/Vol] 309 10*3/uL 150-450 [facility] Potassium measurement (mass/ volume)Ordered By: Cayla Logan on 03-26-2025 Potassium (Unsp spec) [Mass/Vol] 4.2 mmol/L 3.3-5.1 [facility] Protein+Creatinine Ratio,Uri neon 03-26-2025 PROT:CRE RATIO 495 mg/g CRE High 0-200 [facility] Comment on above: Performed By: #### L 501.0900, L101.9900, L501.6710, L500.4050, L100.0100, L400.2010 #### [facility] [address] [place], [address] Protein (U) [Mass/Vol] 23.7 mg/dL High 0.0-12.0 [facility] Comment on above: Performed By: #### L 501.0900, L101.9900, L501.6710, L500.4050, L100.0100, L400.2010 #### [facility] [address] [place], [address] UR CREAT 47.90 mg/dL Normal 39.00-259.00 [facility] Comment on above: Performed By: #### L 501.0900, L101.9900, L501.6710, L500.4050, L100.0100, L400.2011 #### [facility] [place], [address] RBC Auto (Bld) [#/Vol]Ordere d By: Cayla Logan on 03-26-2025 RBC (Bld) [#/Vol] 5.40 10*6/uL 4.6-6.2 [facility] Random urine creatinine cristian urement (mass/volume)Ordered By: Cayla Logan on 03-26-2025 Creatinine Unsp time (U) [Mass/Vol] 47.90 mg/dL 39.00-259.00 [facility] Serum creatinine measurement (mass/volume)Ordered By: alessandro Logan on 03-26-2025 Creatinine [Mass/Vol] 0.80 mg/dL 0.70-1.20 [facility] Serum glucose measurement (m ass/volume)Ordered By: Cayla Logan on 03-26-2025 Glucose [Mass/Vol] 106 mg/dL High 70-99 [facility] Serum or plasma calcium cristian urement (mass/volume)Ordered By: Cayla Logan on 03-26-2025 Calcium [Mass/Vol] 9.1 mg/dL 7.6-11.0 [facility] Serum or plasma urea nitroge n measurement (mass/volume)Ordered By: Cayla Logan on 03-26-2025 Urea nitrogen [Mass/Vol] 22 mg/dL High 4-19 [facility] Serum or plasma uric acid me asurement (mass/volume)Ordered By: [facility] on 03-26-2025 Urate [Mass/Vol] 3.6 mg/dL 3.5-7.2 [facility] Comment on above: The drugs N-Acetylcy steine and Metamizole may falsely depress this assay. Sodium levelOrdered By: Cathy Logan on 03-26-2025 Sodium [Moles/Vol] 135 mmol/L 133-145 [facility] Uric Acidon 03-26-2025 URIC 3.6 mg/dL Normal 3.5-7.2 [facility] Comment on above: Result Comment: The drugs N-Acetylcysteine and Metamizole may falsely depress this assay. Performed By: #### L 501.0900, L101.9900, L501.6710, L500.4050, L100.0100, L400.2010 #### [facility] [address] [place], [place], [id number] Urine protein measurement (m ass/volume)Ordered By: alessandro [facility] on 03-26-2025 Protein (U) [Mass/Vol] 23.7 mg/dL High 0.0-12.0 [facility] Urine protein/creatinine mas s ratioOrdered By: alessandro [facility] on 03-26-2025 Protein/Creatinine (U) [Mass ratio] 495 mg/g CRE High 0-200 [facility] Vitamin D,25 Hydroxyon 03-26 Vitamin D 25-OH 23.7 ng/mL Low 30-100 [facility] Comment on above: Result Comment: Amelie min D Status Deficiency: <20 ng/mL (50nmol/L) Insufficiency: 20-30 ng/mL (50-75 nmol/L) Sufficiency: 30-100 ng/mL (75-250 nmol/L) Toxicity: >100 ng/mL (>250 nmol/L) Performed By: #### L 501.0900, L101.9900, L501.6710, L500.4050, L100.0100, L400.2010 #### [facility] [address] [place], [place], [id number] White blood cell (WBC) count Ordered By: Cayla Logan on 03-26-2025 WBC (Bld) [#/Vol] 17.2 10*3/uL High 4.4-11.0 [facility] CNOVon 01-24-2025 CNOV Office Visit (FMUPCE ) -- KRYSTEN CROOK V ([id number]) 1985 M Date Time Provider Department 01/24/25 9:00 AM HUY MARQUEZ During your visit today, we recorded the following information about you: Pulse Blood pressure Weight Height 60/minute 110/78 136.1 kg 1.727 m Huy Marquez MD 01/24/2025 12:31 PM Signed Huy Marquez MD [address] [place] [address] Dept: [phone] Dept Visit Date: January 24, 2025 Name: Krysten Crook Date of : 1985 MRN/E #: [id number] Age: [age] year old Sex: male Subjective Patient presents with: Follow Up The patient consented to the use of [employer] software for draft documentation of the visit consistent with [facility]?s Notice of Privacy Practices. Subjective Hypertension: - Blood pressure reportedly well-controlled. - Currently taking lisinopril. 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 - Under the care of bass viol repairer - now taking Farxiga. - Awaiting delivery of [place] per nephrology - Followed by ceramic artist as well Active Non-Hospital Problems Diagnosis IgA nephropathy Class 3 severe obesity without serious comorbidity in adult (HCC) Hypertension Hypercholesterolemia IgA mediated leukocytoclastic vasculitis PAST MEDICAL HISTORY Diagnosis Date Hypercholesterolemia Current Outpatient Medications Medication Sig dapagliflozin propanediol (FARXIGA) 10 mg tablet Take 10 mg by mouth once daily. lisinopril (ZESTRIL) 10 mg tablet Take 1 tablet by mouth every afternoon. No current facility-administered medications for this visit. Objective Objective 01/24/25845 BP: 110/78 BP Site: Left Arm BP Position: Sitting BP Cuff Size: Large Adult Pulse: 60 SpO2: 94% Weight: (!) 136.1 kg (300 lb 0.7 oz) Height: 172.7 cm (5' 8) Body mass index is 45.62 kg/m?. Last 3 Encounter BP Readings: Date: BP: 01/24/2025 110/78 10/26/2024 140/90 08/24/2024 110/83 Last 3 Encounter Wt Readings: Date: Wt: 01/24/2025 136.1 kg (300 lb 0.7 oz) 10/26/2024 133.2 kg (293 lb 10.4 oz) 08/02/2024 129.6 kg (285 lb 11.5 oz) Physical Exam Vitals and nursing note reviewed. Constitutional: General: He is not in acute distress. HENT: Head: Normocephalic and atraumatic. Eyes: Conjunctiva/sclera: Conjunctivae normal. Cardiovascular: Rate and Rhythm: Normal rate and regular rhythm. Heart sounds: No murmur heard. No friction rub. No gallop. Pulmonary: Effort: Pulmonary effort is normal. No respiratory distress. Breath sounds: Normal breath sounds. No stridor. No wheezing, rhonchi or rales. Skin: General: Skin is warm and dry. Coloration: Skin is not jaundiced. Neurological: General: No focal deficit present. Mental Status: He is alert. Tests: - Kidney Biopsy 12/21/24: Findings consistent with IgA nephropathy. Assessment / Plan 1. Hypertension, unspecified type (I10) - Blood pressure is well-controlled on current medication regimen. - Continue lisinopril as prescribed. 2. IgA nephropathy (N02.B9) 3. 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 - continue farxiga per nephrology - Awaiting delivery of [place] per nephrology - continue to follow with nephro and rheum Return in about 6 months (around 07/26/2025) for annual check-up. Discussed the above with the patient using shared decision-making. Counseling, education, and support provided. Reviewed precaution measures and when to seek additional care. Patient voiced understanding and agreed with the plan. Medical Decision Making: Problems: Moderate: 2+ stable chronic illnesses Risk: Moderate: Drug management Medical Decision Making Level: 4 - Moderate Provider: Huy Marquez MD Date: January 24, 2025 Hyu Marquez MD 01/24/2025 12:17 PM Addendum - Continue taking Farxiga and Lisinopril as prescribed. - Follow up with your kidney doctor - Continue follow-up with your ceramic artist - Next appointment with your primary care physician is in July for your annual checkup. Allergies As of Date: 01/24/2025 Noted Allergy Reaction KEFLEX (CEPHALEXIN) 06/24/2024 4 - Hives Date Reviewed: 01/24/2025 Reviewed by: Sujata Willingham MA - Fully Assessed Reason for Visit: Follow Up [171] Primary Visit Diagnosis:Hypertension, unspecified type [I10] Other Visit Diagnoses:IgA nephropathy [N02.B9] IgA mediated leukocytoclastic vasculitis [D69.0] Prescriptions as of 01/24/2025 - dapagliflozin propanediol (FARXIGA) 10 mg tablet Take 10 mg by mouth once daily. - lisinopril (ZESTRIL) 10 mg tablet Take 1 tablet by mouth every afternoon. Problem List As Of Date 01/24/2025 Noted Resolved Class 3 severe obesity without serious comorbi (more content not included)... [facility] Final Surgical Pathology Rep [facility] 12-29-2024 Final Surgical Pathology Report . Pathology Reports Accession: Collected Date/Time: Received Date/Time: Pathologist: [id number] 12/21/2024 09:03 EST 12/21/2024 09:53 EST JEFERSON OLIVIER MD Final Surgical Pathology Report DIAGNOSIS: A. KIDNEY, LEFT, [place] BIOPSY: - IGA NEPHROPATHY WITH CRESCENTS. SEE COMMENT. CHRONICITY TABLE: TOTAL GLOMERULI- 30 GLOBAL GLOMERULOSCLEROSIS- 0 SEGMENTAL SCLEROSIS- PRESENT INTERSTITIAL FIBROSIS- MINIMAL TUBULAR ATROPHY- MINIMAL ARTERIAL INTIMAL FIBROSIS- NONE ARTERIOLAR HYALINOSIS- NONE SPECIMEN PROCESSED AT [facility] AND INTERPRETATION RENDERED BY [facility] NEPHROPATHOLOGY SERVICE. FULL REPORT SCANNED INTO EMR. CLINICAL INFORMATION: Procedure: CT RANDOM RENAL CORE BIOPSY Preoperative diagnosis: PROTEINURIA SPECIMEN: A LEFT KIDNEY GROSS DESCRIPTION: All parts labelled with patient name and [id number] Received fresh in saline labelled left renal are 5 thin, pale mckeon cores of soft tissue. The one core is placed in glutaraldehyde. The remaining cores are divided and submitted in (2 cores) Josiah's fixative, and (1 cord) formalin. The specimen is entirely submitted to [facility].- Yehuda Young, [facility] Well[facility] Coordinator (ASCP) Performed by YEHUDA YOUNG MICROSCOPIC DESCRIPTION: The microscopic examination is performed, except in the case of Gross Only. Verified by Pathology Report verified by [facility] JEFERSON OLIVIER Sign out Date: 12/29/2024 09:28 Performing Lab: [facility], [facility] [address] [place] [address] Pathology Dept Disclaimer If ancillary studies were utilized, the following Laboratory Developed Test (LDT) disclaimer will apply: Under CLIA requirements, [facility] Pathology Laboratory is qualified to perform high complexity testing. For all ancillary stains, positive and negative controls stain appropriately. Performance characteristics of immunohistochemical and chromogenic in-situ hybridization tests have been determined by [facility] Pathology Laboratory. These tests are used for clinical purposes, They should not be regarded as investigational or for research. Normal [facility] BMP with eGFRon 12-26-2024 AGE 39 years Normal [facility] Comment on above: Performed By: #### 2 56078 #### [address] [address] Anion gap [Moles/Vol] 11 mmol/L Normal 10 - 20 [facility] Comment on above: Performed By: #### 2 34858 #### [address] [address] BMP with eGFR Normal [facility] Comment on above: Result Comment: BASI C METABOLIC PANEL Performed By: #### 2 84712 #### [address] [address] Calcium [Mass/Vol] 8.7 mg/dL Normal 8.5 - 10.1 [facility] Comment on above: Performed By: #### 2 17040 #### [facility],[address] [place] [address] Chloride [Moles/Vol] 103 mmol/L Normal 98 - 107 [facility] Comment on above: Performed By: #### 2 30327 #### [facility],[address] [place] [address] CO2 [Moles/Vol] 26.2 mmol/L Normal 21.0 - 32.0 [facility] Comment on above: Performed By: #### 2 52777 #### [facility],[address] [place] [address] Creatinine [Mass/Vol] 0.85 mg/dL Normal 0.70 - 1.30 [facility] Comment on above: Performed By: #### 2 77652 #### [facility],[address] [place] [address] GFR/1.73 sq M.predicted among non-blacks MDRD (S/P/Bld) [Vol rate/Area] mL/min/{1.73_m2} Normal 60 - 999 [facility] Comment on above: Performed By: #### 2 01413 #### [facility],[address] [place] [address] Result Comment: ACCO RDING TO THE NATIONAL KIDNEY DISEASE EDUCATION PROGRAM(NKDE), A NORMAL eGFR IS A VALUE GREATER THAN OR EQUAL TO 60 ML/MIN/1.73 SQ METERS. CHRONIC KIDNEY DISEASE: <60mL/MIN/1.73 SQ METERS KIDNEY FAILURE: <15mL/MIN/1.73 SQ METERS THIS TEST SHOULD ONLY BE USED FOR PATIENTS 18 YEARS OF AGE AND OLDER. Glucose [Mass/Vol] 103 mg/dL Normal 74 - 106 [facility] Comment on above: Performed By: #### 2 33883 #### [facility],[address] [place] [address] Potassium [Moles/Vol] 4.4 mmol/L Normal 3.5 - 5.1 [facility] Comment on above: Performed By: #### 2 77962 #### [facility],[address] [place] [address] Sodium [Moles/Vol] 136 mmol/L Normal 136 - 145 [facility] Comment on above: Performed By: #### 2 50939 #### [facility],[address] [place] [address] Urea nitrogen [Mass/Vol] 30 mg/dL High 7 - 18 [facility] Comment on above: Performed By: #### 2 46623 #### [facility],[address] [place] [address] CBC + DIFFon 12-26-2024 Baso # 0.05 x10EE3/UL Normal 0.00 - 0.10 [facility] Comment on above: Performed By: #### 2 39008 #### [facility],[address] [place] [address] Basophils/100 WBC (Bld) 0.3 % Normal 0.0 - 2.0 [facility] Comment on above: Performed By: #### 2 01426 #### [facility],[address] [place] [address] CBC + DIFF Normal [facility] Comment on above: Result Comment: CBC- COMPLETE BLOOD COUNT Performed By: #### 2 45787 #### [facility],[address] [place] [address] EO # 0.10 x10EE3/UL Normal 0.00 - 0.50 [facility] Comment on above: Performed By: #### 2 90030 #### [facility],[address] [place] [address] Eosinophils/100 WBC (Bld) 0.6 % Normal 0.0 - 7.0 [facility] Comment on above: Performed By: #### 2 37885 #### [facility],[address] [place] [address] Erythrocyte distribution width (RBC) [Ratio] 13.5 % Normal 12.0 - 15.6 [facility] Comment on above: Performed By: #### 2 51576 #### [facility],[address] [place], [place] [id number] Hematocrit (Bld) [Volume fraction] 44.5 % Normal 40.0 - 52.0 [facility] Comment on above: Performed By: #### 2 24033 #### [facility],[address] [place] [address] Hemoglobin (Bld) [Mass/Vol] 15.4 g/dL Normal 13.0 - 17.5 [facility] Comment on above: Performed By: #### 2 28759 #### [facility],[address] [place] [address] Lymph # 2.38 x10EE3/UL Normal 0.80 - 2.80 [facility] Comment on above: Performed By: #### 2 27773 #### [facility],[address] [place] [address] Lymphocytes/100 WBC (Bld) 12.9 % Low 20.0 - 45.0 [facility] Comment on above: Performed By: #### 2 14289 #### [facility],[address] [place] [address] MANUAL DIFF N/A Normal [facility] Comment on above: Performed By: #### 2 74861 #### [facility],[address] [place] [address] MCH (RBC) [Entitic mass] 29 pg Normal 27 - 33 [facility] Comment on above: Performed By: #### 2 69879 #### [place] [address] MCHC 35 X10 3 Normal 32 - 36 [facility] Comment on above: Performed By: #### 2 12684 #### [facility],[address] [place] [address] MCV (RBC) [Entitic vol] 85 fL Normal 81 - 98 [facility] Comment on above: Performed By: #### 2 18465 #### [facility],[address] [place] [address] [place] # 0.89 x10EE3/UL Normal 0.20 - 1.00 [facility] Comment on above: Performed By: #### 2 53095 #### [facility],[address] [place] [address] MONOS % 4.8 % Normal 0.0 - 10.0 [facility] Comment on above: Performed By: #### 2 35121 #### [facility],[address] [place] [address] Morphology Epi (Bld) [Interp] N/A Normal [facility] Comment on above: Performed By: #### 2 74074 #### [facility],[address] [place] [address] Neut # 15.04 x10EE3/UL High 1.50 - 7.10 [facility] Comment on above: Performed By: #### 2 75761 #### [place] [address] Neutrophils/100 WBC (Bld) 81.5 % High 46.0 - 76.0 [facility] Comment on above: Performed By: #### 2 82131 #### [place] [address] PLATELET 412 x10EE3/UL Normal 150 - 450 [facility] Comment on above: Performed By: #### 2 87570 #### [place] [address] Platelet mean volume (Bld) [Entitic vol] 7.3 fL Normal 6.4 - 10.5 [facility] Comment on above: Result Comment: AUTO MATED DIFFERENTIAL Performed By: #### 2 66563 #### [place] [address] RBC 5.26 x 10EE6/UL Normal 4.50 - 6.00 [facility] Comment on above: Performed By: #### 2 68941 #### [place] [address] WBC 18.5 x 10EE3/UL High 4.5 - 10.8 [facility] Comment on above: Performed By: #### 2 00090 #### [place] [id number] URIC ACIDon 12-26-2024 Urate [Mass/Vol] 6.5 mg/dL Normal 3.5 - 7.2 [facility] Comment on above: Performed By: #### 2 61773 #### [facility],[address] [place], [place] [address] URINE CREATININE AND PROTEIN RATIOon 12-26-2024 CREATININE UR 153.45 mg/dl Normal [facility] Comment on above: Performed By: #### 2 84753 #### [facility],[address] [place] [address] PC RATIO 0.79 mg/dL Normal 0.00 - 10.00 [facility] Comment on above: Performed By: #### 2 36960 #### [facility],[address] [place] [address] Protein (U) [Mass/Vol] 121.70 mg/dL High 0.00 - 10.00 [facility] Comment on above: Performed By: #### 2 80189 #### [facility],[address] [place] [address] Absolute lymphocyte countOrd ered By: Edith Gore on 12-25-2024 Lymphocytes Auto (Unsp spec) [#/Vol] 2.46 10*3/uL 0.83-4.51 [facility] Absolute neutrophil countOrd ered By: Edith Gore on 12-25-2024 Neutrophils (Bld) [#/Vol] 14.9 10*3/uL High 2.0-7.7 [facility] Anion gap in Serum or Plasma Ordered By: Edith Gore on 12-25-2024 Anion gap [Moles/Vol] 13 mmol/L 5-15 [facility] Automated lymphocyte count a s percentage of total leukocytesOrdered By: Edith Gore on 12-25-2024 Lymphocytes/100 WBC Auto (Unsp spec) 13.4 % Low 19-41 [facility] BUN/creatinine ratioOrdered By: Edith Gore on 12-25-2024 Urea nitrogen/Creatinine [Mass ratio] 35.5 mg/mg High 10-20 [facility] Basophil percentageOrdered B y: Edith Bao on 12-25-2024 Basophils/100 WBC (Bld) 0.3 % 0-1 [facility] Bilirubin Test strip Ql (U)O rdered By: Edith Bao on 12-25-2024 Bilirubin Ql (U) Negative Negative [facility] Bilirubin, totalOrdered By: Edith Gore on 12-25-2024 Bilirubin [Mass/Vol] 0.20 mg/dL 0.00-1.30 [facility] CBC W/Diff, Automatedon 12-16 0-2024 Absolute Lymph 2.46 X10 3/uL Normal 0.83-4.51 [facility] Comment on above: Performed By: #### L 501.0900, L101.9900, L501.6710, L500.4050, L100.0100, L400.2010 #### [facility] [address] [place], [address] Absolute Neut 14.9 X10 3/uL High 2.0-7.7 [facility] Comment on above: Performed By: #### L 501.0900, L101.9900, L501.6710, L500.4050, L100.0100, L400.2010 #### [facility] [address] [place], [address] Basophils/100 WBC (Bld) 0.3 % Normal 0-1 [facility] Comment on above: Performed By: #### L 501.0900, L101.9900, L501.6710, L500.4050, L100.0100, L400.2010 #### [facility] [address] [facility] [place], [address] Eosinophils/100 WBC (Bld) 0.1 % Normal 0-5 [facility] Comment on above: Performed By: #### L 501.0900, L101.9900, L501.6710, L500.4050, L100.0100, L400.2010 #### [facility] [address] [place], [address] Erythrocyte distribution width (RBC) [Ratio] 13.2 % Normal 11.6-14.6 [facility] Comment on above: Performed By: #### L 501.0900, L101.9900, L501.6710, L500.4050, L100.0100, L400.2010 #### [facility] [address] [place], [address] Hematocrit (Bld) [Volume fraction] 47.5 % Normal 40-54 [facility] Comment on above: Performed By: #### L 501.0900, L101.9900, L501.6710, L500.4050, L100.0100, L400.2010 #### [facility] [address] [place], [address] Hemoglobin (Bld) [Mass/Vol] 15.7 g/dL Normal 13.0-16.5 [facility] Comment on above: Performed By: #### L 501.0900, L101.9900, L501.6710, L500.4050, L100.0100, L400.2010 #### [facility] [address] [place], [address] IG% 0.500 Normal 0.0-0.9 [facility] Comment on above: Result Comment: IG% - Immature Granulocytes (promyelocytes, myelocytes and metamyelocytes) > 1% indicates that a LEFT SHIFT is Present. Performed By: #### L 501.0900, L101.9900, L501.6710, L500.4050, L100.0100, L400.2010 #### [facility] [address] [place], [address] Lymphocytes/100 WBC (Bld) 13.4 % Low 19-41 [facility] Comment on above: Performed By: #### L 501.0900, L101.9900, L501.6710, L500.4050, L100.0100, L400.2010 #### [facility] [address] [place], [address] MCH (RBC) [Entitic mass] 28.0 pg Normal 27.0-32.0 [facility] Comment on above: Performed By: #### L 501.0900, L101.9900, L501.6710, L500.4050, L100.0100, L400.2010 #### [facility] [address] [place], [address] MCHC (RBC) [Mass/Vol] 33.1 g/dL Normal 32-36 [facility] Comment on above: Performed By: #### L 501.0900, L101.9900, L501.6710, L500.4050, L100.0100, L400.2010 #### [facility] [address] [place], [address] MCV (RBC) [Entitic vol] 84.8 fL Normal 80-94 [facility] Comment on above: Performed By: #### L 501.0900, L101.9900, L501.6710, L500.4050, L100.0100, L400.2010 #### [facility] [address] [place], [address] Monocytes/100 WBC (Bld) 4.2 % Normal 0-10 [facility] Comment on above: Performed By: #### L 501.0900, L101.9900, L501.6710, L500.4050, L100.0100, L400.2010 #### [facility] [address] [place], [address] Neutrophils/100 WBC (Bld) 81.5 % High 47-70 [facility] Comment on above: Performed By: #### L 501.0900, L101.9900, L501.6710, L500.4050, L100.0100, L400.2010 #### [facility] [address] [place], [address] Nucleated RBC (Bld) [#/Vol] 0 10*3/uL Normal 0-5 [facility] Comment on above: Performed By: #### L 501.0900, L101.9900, L501.6710, L500.4050, L100.0100, L400.2010 #### [facility] [address] [place], [address] Platelet mean volume (Bld) [Entitic vol] 9.3 fL Normal 6.2-12.0 [facility] Comment on above: Performed By: #### L 501.0900, L101.9900, L501.6710, L500.4050, L100.0100, L400.2010 #### [facility] [address] [place], [address] Platelets (Bld) [#/Vol] 394 10*3/uL Normal 150-450 [facility] Comment on above: Performed By: #### L 501.0900, L101.9900, L501.6710, L500.4050, L100.0100, L400.2010 #### [facility] [address] [place], [address] RBC (Bld) [#/Vol] 5.60 10*6/uL Normal 4.6-6.2 [facility] Comment on above: Performed By: #### L 501.0900, L101.9900, L501.6710, L500.4050, L100.0100, L400.2010 #### [facility] [address] [place], [address] RDW SD 40.8 fl Normal 35.1-43.9 [facility] Comment on above: Performed By: #### L 501.0900, L101.9900, L501.6710, L500.4050, L100.0100, L400.2010 #### [facility] [address] [place], [address] WBC (Bld) [#/Vol] 18.3 10*3/uL High 4.4-11.0 [facility] Comment on above: Performed By: #### L 501.0900, L101.9900, L501.6710, L500.4050, L100.0100, L400.2010 #### [facility] [address] [place], [address] CRPon 12-25-2024 C-REACTIVE PROT 8.98 mg/L High 0.0-3.0 [facility] Comment on above: Performed By: #### L 501.0900, L101.9900, L501.6710, L500.4050, L100.0100, L400.2010 #### [facility] [address] [place], [address] CRP [Mass/Vol]Ordered By: Manuel Gore on 12-25-2024 C-Reactive Protein Extended Range 8.98 mg/L High 0.0-3.0 [facility] Carbon dioxide, total [Moles /volume] in Central venous bloodOrdered By: Edith Gore on 12-25-2024 CO2 [Moles/Vol] 21.1 mmol/L 21.0-32.0 [facility] Chloride assayOrdered By: Manuel Gore on 12-25-2024 Chloride [Moles/Vol] 102 mmol/L 98-108 [facility] Comprehensive Metabolic Prof ilon 12-25-2024 Albumin [Mass/Vol] 4.0 g/dL Normal 3.5-5.0 [facility] Comment on above: Performed By: #### L 501.0900, L101.9900, L501.6710, L500.4050, L100.0100, L400.2010 #### [facility] [address] [place], [address] Albumin/Globulin [Mass ratio] 1.1 {ratio} Normal 0.9-2.4 [facility] Comment on above: Performed By: #### L 501.0900, L101.9900, L501.6710, L500.4050, L100.0100, L400.2010 #### [facility] [address] [place], [address] ALK PHOS 82 U/L Normal 40-129 [facility] Comment on above: Performed By: #### L 501.0900, L101.9900, L501.6710, L500.4050, L100.0100, L400.2010 #### [facility] [address] [place], [address] ALT [Catalytic activity/Vol] 46 U/L Normal <=46 [facility] Comment on above: Performed By: #### L 501.0900, L101.9900, L501.6710, L500.4050, L100.0100, L400.2010 #### [facility] [address] [place], [address] AST [Catalytic activity/Vol] 24 U/L Normal <=37 [facility] Comment on above: Performed By: #### L 501.0900, L101.9900, L501.6710, L500.4050, L100.0100, L400.2010 #### [facility] [address] [place], [address] Bilirubin [Mass/Vol] 0.20 mg/dL Normal 0.00-1.30 [facility] Comment on above: Performed By: #### L 501.0900, L101.9900, L501.6710, L500.4050, L100.0100, L400.2010 #### [facility] [address] [place], [address] BUN/CRE 35.5 RATIO High 10-20 [facility] Comment on above: Performed By: #### L 501.0900, L101.9900, L501.6710, L500.4050, L100.0100, L400.2010 #### [facility] [address] [place], [address] Calcium [Mass/Vol] 9.8 mg/dL Normal 7.6-11.0 [facility] Comment on above: Performed By: #### L 501.0900, L101.9900, L501.6710, L500.4050, L100.0100, L400.2010 #### [facility] [address] [place], [address] Chloride [Moles/Vol] 102 mmol/L Normal 98-108 [facility] Comment on above: Performed By: #### L 501.0900, L101.9900, L501.6710, L500.4050, L100.0100, L400.2010 #### [facility] [address] [place], [address] CO2 [Moles/Vol] 21.1 mmol/L Normal 21.0-32.0 [facility] Comment on above: Performed By: #### L 501.0900, L101.9900, L501.6710, L500.4050, L100.0100, L400.2010 #### [facility] [address] [place], [address] Creatinine [Mass/Vol] 0.80 mg/dL Normal 0.70-1.20 [facility] Comment on above: Performed By: #### L 501.0900, L101.9900, L501.6710, L500.4050, L100.0100, L400.2010 #### [facility] [address] [place], [address] GAP 13 Normal 5-15 [facility] Comment on above: Performed By: #### L 501.0900, L101.9900, L501.6710, L500.4050, L100.0100, L400.2010 #### [facility] [address] [place], [address] GFR/1.73 sq M.predicted among non-blacks MDRD (S/P/Bld) [Vol rate/Area] 116 mL/min/{1.73_m2} Normal >60 [facility] Comment on above: Result Comment: mL/m in/1.73m2 CKD-EPI Creatinine Equation (2020) Performed By: #### L 501.0900, L101.9900, L501.6710, L500.4050, L100.0100, L400.2010 #### [facility] [address] [place], [address] Globulin (S) [Mass/Vol] 3.6 g/dL Normal 2.2-4.2 [facility] Comment on above: Performed By: #### L 501.0900, L101.9900, L501.6710, L500.4050, L100.0100, L400.2010 #### [facility] [address] [place], [address] Glucose [Mass/Vol] 105 mg/dL High 70-99 [facility] Comment on above: Performed By: #### L 501.0900, L101.9900, L501.6710, L500.4050, L100.0100, L400.2010 #### [facility] [address] [place], [address] Potassium [Moles/Vol] 4.5 mmol/L Normal 3.3-5.1 [facility] Comment on above: Performed By: #### L 501.0900, L101.9900, L501.6710, L500.4050, L100.0100, L400.2010 #### [facility] [address] [place], [address] Sodium [Moles/Vol] 136 mmol/L Normal 133-145 [facility] Comment on above: Performed By: #### L 501.0900, L101.9900, L501.6710, L500.4050, L100.0100, L400.2010 #### [facility] [address] [place], [address] T PROT 7.6 g/dL Normal 5.9-8.4 [facility] Comment on above: Performed By: #### L 501.0900, L101.9900, L501.6710, L500.4050, L100.0100, L400.2010 #### [facility] [address] [place], [address] Urea nitrogen [Mass/Vol] 28 mg/dL High 4-19 [facility] Comment on above: Performed By: #### L 501.0900, L101.9900, L501.6710, L500.4050, L100.0100, L400.2010 #### [facility] [address] [place], [address] Creatinine Unsp time (U) [Ma ss/Vol]Ordered By: Edith Gore on 12-25-2024 Creatinine (U) [Mass/Vol] 102.00 mg/dL 39-259 [facility] Eosinophil percentageOrdered By: Edith Gore on 12-25-2024 Eosinophils/100 WBC (Bld) 0.1 % 0-5 [facility] Erythrocyte Sed Rateon 12-25 SED RATE 38 mm/hr High 0-20 [facility] Comment on above: Performed By: #### L 501.0900, L101.9900, L501.6710, L500.4050, L100.0100, L400.2010 #### [facility] [address] [place], [address] Erythrocyte distribution wid th ratioOrdered By: Edith Gore on 12-25-2024 Erythrocyte distribution width (RBC) [Ratio] 13.2 % 11.6-14.6 [facility] Erythrocyte distribution wid th standard deviationOrdered By: Edith Gore on 12-25-2024 Erythrocyte distribution width (RBC) [Entitic vol] 40.8 fL 35.1-43.9 [facility] Erythrocyte distribution width (RBC) [Ratio] 40.8 fl 35.1-43.9 [facility] Erythrocyte sedimentation ra teOrdered By: Edith Gore on 12-25-2024 ESR (Bld) [Velocity] 38 mm/h High 0-20 [facility] GFR/1.73 sq M.predicted beth g non-blacks MDRD (S/P/Bld) [Vol rate/Area]Ordered By: Edith Gore on 12-25-2024 Estimated GFR (MDRD) Non-Af Amer 116 >60 [facility] Comment on above: mL/min/1.73m2 CKD-EP I Creatinine Equation (2020) Glomerular filtration rate ( GFR) estimation/1.73 sq m using serum, plasma, or whole bOrdered By: Edith Gore on 12-25-2024 GFR/1.73 sq M.predicted among non-blacks MDRD (S/P/Bld) [Vol rate/Area] 116 mL/min/{1.73_m2} >60 [facility] Comment on above: mL/min/1.73m2 CKD-EP I Creatinine Equation (2020) Glucose Ql (U)Ordered By: Manuel Gore on 12-25-2024 Urine Glucose (UA) Normal mg/dl Normal [facility] Hematocrit Auto (Bld) [Volum e fraction]Ordered By: Edith Gore on 12-25-2024 Hematocrit (Bld) [Volume fraction] 47.5 % 40-54 [facility] Hemoglobin measurementOrdere d By: Edith Gore on 12-25-2024 Hemoglobin (Bld) [Mass/Vol] 15.7 g/dL 13.0-16.5 [facility] Immature granulocytes/100 WB C Auto (Bld)Ordered By: Edith Gore on 12-25-2024 Immature granulocytes/100 WBC (Bld) 0.500 % 0.0-0.9 [facility] Comment on above: IG% - Immature Granu locytes (promyelocytes, myelocytes and metamyelocytes) > 1% indicates that a LEFT SHIFT is Present. Ketones Test strip Ql (U)Ord ered By: Edith Gore on 12-25-2024 Ketones Ql (U) Negative Negative [facility] - Chemistry and C hemistry - challengeOrdered By: Edith Gore on 12-25-2024 AST [Catalytic activity/Vol] 24 U/L <38 [facility] Lymphocytes Auto (Unsp spec) [#/Vol]Ordered By: Edithmarleni Gore on 12-25-2024 Lymphocytes (Bld) [#/Vol] 2.46 10*3/uL 0.83-4.51 [facility] Lymphocytes/100 WBC Auto (Un sp spec)Ordered By: Edith Gore on 12-25-2024 Lymphocytes/100 WBC (Bld) 13.4 % Low 19-41 [facility] MCV (mean corpuscular volume ) determinationOrdered By: Edith Gore on 12-25-2024 MCV (RBC) [Entitic vol] 84.8 fL 80-94 [facility] Mean corpuscular hemoglobin (MCH) determinationOrdered By: Edith Gore on 12-25-2024 MCH (RBC) [Entitic mass] 28.0 pg 27.0-32.0 [facility] Mean corpuscular hemoglobin concentration (MCHC) determinationOrdered By: Edith Gore on 12-25-2024 MCHC (RBC) [Mass/Vol] 33.1 g/dL 32-36 [facility] Mean platelet volume determi nationOrdered By: Edithmarleni Gore on 12-25-2024 Platelet mean volume (Bld) [Entitic vol] 9.3 fL 6.2-12.0 [facility] Monocyte percentageOrdered B y: Edith Gore on 12-25-2024 Monocytes/100 WBC (Bld) 4.2 % 0-10 [facility] Neutrophil percentageOrdered By: Edith Gore on 12-25-2024 Neutrophils/100 WBC (Bld) 81.5 % High 47-70 [facility] Nitrite Test strip Ql (U)Ord ered By: Edith Gore on 12-25-2024 Nitrite Ql (U) Negative Negative [facility] Nucleated red blood cell per centageOrdered By: Edith Gore on 12-25-2024 Nucleated RBC/100 WBC (Bld) [Ratio] 0 % 0-5 [facility] Platelet countOrdered By: Manuel Gore on 12-25-2024 Platelets (Bld) [#/Vol] 394 10*3/uL 150-450 [facility] Potassium (Unsp spec) [Mass/ Vol]Ordered By: Edith Gore on 12-25-2024 Potassium [Moles/Vol] 4.5 mmol/L 3.3-5.1 [facility] Potassium measurement (mass/ volume)Ordered By: Edith Gore on 12-25-2024 Potassium (Unsp spec) [Mass/Vol] 4.5 mmol/L 3.3-5.1 [facility] Protein Test strip Ql (U)Ord ered By: Edith Gore on 12-25-2024 Protein Ql (U) 100 mg/dl High Negative [facility] Protein+Creatinine Ratio,Uri neon 12-25-2024 PROT:CRE RATIO 652 mg/g CRE High 0-200 [facility] Comment on above: Performed By: #### L 501.0900, L101.9900, L501.6710, L500.4050, L100.0100, L400.2010 #### [facility] [address] [facility] [place], [address] Protein (U) [Mass/Vol] 66.5 mg/dL High 0.0-12.0 [facility] Comment on above: Performed By: #### L 501.0900, L101.9900, L501.6710, L500.4050, L100.0100, L400.2010 #### [facility] [address] [place], [address] UR CREAT 102.00 mg/dL Normal 39-259 [facility] Comment on above: Performed By: #### L 501.0900, L101.9900, L501.6710, L500.4050, L100.0100, L400.2010 #### [facility] [address] [place], [address] Protein/Creatinine (U) [Mass ratio]Ordered By: Edith Gore on 12-25-2024 Urine Protein/Creatinine Ratio 652 mg/g CRE High 0-200 [facility] RBC Auto (Bld) [#/Vol]Ordere d By: Edith Gore on 12-25-2024 RBC (Bld) [#/Vol] 5.60 10*6/uL 4.6-6.2 [facility] Random urine creatinine cristian urement (mass/volume)Ordered By: Edith Gore on 12-25-2024 Creatinine Unsp time (U) [Mass/Vol] 102.00 mg/dL 39-259 [facility] Serum creatinine measurement (mass/volume)Ordered By: Edith Gore on 12-25-2024 Creatinine [Mass/Vol] 0.80 mg/dL 0.70-1.20 [facility] Serum globulin measurementOr dered By: Edith Gore on 12-25-2024 Globulin (S) [Mass/Vol] 3.6 g/dL 2.2-4.2 [facility] Serum glucose measurement (m ass/volume)Ordered By: Edith Gore on 12-25-2024 Glucose [Mass/Vol] 105 mg/dL High 70-99 [facility] Serum or plasma C reactive p rotein measurement (mass/volume)Ordered By: Edith Gore on 12-25-2024 CRP [Mass/Vol] 8.98 mg/L High 0.0-3.0 [facility] Serum or plasma alanine johnson otransferase (ALT) measurementOrdered By: Edith Gore on 12-25-2024 ALT [Catalytic activity/Vol] 46 U/L <47 [facility] Serum or plasma albumin cristian urement (mass/volume)Ordered By: Edith Gore on 12-25-2024 Albumin [Mass/Vol] 4.0 g/dL 3.5-5.0 [facility] Serum or plasma albumin/glob ulin mass ratioOrdered By: Edith Gore on 12-25-2024 Albumin/Globulin [Mass ratio] 1.1 {ratio} 0.9-2.4 [facility] Serum or plasma alkaline luis eduardo sphatase measurementOrdered By: Edith Gore on 12-25-2024 ALP [Catalytic activity/Vol] 82 U/L 40-129 [facility] Serum or plasma calcium cristian urement (mass/volume)Ordered By: Edith Gore on 12-25-2024 Calcium [Mass/Vol] 9.8 mg/dL 7.6-11.0 [facility] Serum or plasma urea nitroge n measurement (mass/volume)Ordered By: Edith Gore on 12-25-2024 Urea nitrogen [Mass/Vol] 28 mg/dL High 4-19 [facility] Sodium levelOrdered By: Airam Gore on 12-25-2024 Sodium [Moles/Vol] 136 mmol/L 133-145 [facility] Total proteinOrdered By: Demi Gore on 12-25-2024 Protein [Mass/Vol] 7.6 g/dL 5.9-8.4 [facility] Urinalysis, Routine (Dipstic k)on 12-25-2024 BILIRUBIN URINE Negative Normal Negative [facility] Comment on above: Order Comment: Urine , Random Performed By: #### L 501.0900, L101.9900, L501.6710, L500.4050, L100.0100, L400.2010 #### [facility] [address] [place], [place], [id number] Clarity (U) Clear Normal Clear [facility] Comment on above: Order Comment: Urine , Random Performed By: #### L 501.0900, L101.9900, L501.6710, L500.4050, L100.0100, L400.2010 #### [facility] [address] [place], [address] Color (U) Yellow Normal Yellow [facility] Comment on above: Order Comment: Urine , Random Performed By: #### L 501.0900, L101.9900, L501.6710, L500.4050, L100.0100, L400.2010 #### [facility] [address] [place], [address] GLUCOSE, UR Normal Normal Normal [facility] Comment on above: Order Comment: Urine , Random Performed By: #### L 501.0900, L101.9900, L501.6710, L500.4050, L100.0100, L400.2010 #### [facility] [address] [place], [address] KETONE UR Negative Normal Negative [facility] Comment on above: Order Comment: Urine , Random Performed By: #### L 501.0900, L101.9900, L501.6710, L500.4050, L100.0100, L400.2010 #### [facility] [address] [place], [address] LEUK ESTERASE Negative Normal Negative [facility] Comment on above: Order Comment: Urine , Random Performed By: #### L 501.0900, L101.9900, L501.6710, L500.4050, L100.0100, L400.2010 #### [facility] [address] [place], [address] Nitrite Ql (U) Negative Normal Negative [facility] Comment on above: Order Comment: Urine , Random Performed By: #### L 501.0900, L101.9900, L501.6710, L500.4050, L100.0100, L400.2010 #### [facility] [address] [place], [address] OCCULT BLOOD-UR 250 /ul Abnormal Negative [facility] Comment on above: Order Comment: Urine , Random Performed By: #### L 501.0900, L101.9900, L501.6710, L500.4050, L100.0100, L400.2010 #### [facility] [address] [place], [address] pH UR 6.0 Normal 5.0 - 8.0 [facility] Comment on above: Order Comment: Urine , Random Performed By: #### L 501.0900, L101.9900, L501.6710, L500.4050, L100.0100, L400.2010 #### [facility] [address] [place], [address] PROT DIPSTX 100 mg/dl Abnormal Negative [facility] Comment on above: Order Comment: Urine , Random Performed By: #### L 501.0900, L101.9900, L501.6710, L500.4050, L100.0100, L400.2010 #### [facility] [address] [place], [address] SP.GR. DIPSTX 1.020 Normal 1.002-1.030 [facility] Comment on above: Order Comment: Urine , Random Performed By: #### L 501.0900, L101.9900, L501.6710, L500.4050, L100.0100, L400.2010 #### [facility] [address] [place], [address] UROBILI Normal Normal Normal [facility] Comment on above: Order Comment: Urine , Random Performed By: #### L 501.0900, L101.9900, L501.6710, L500.4050, L100.0100, L400.2010 #### [facility] [address] [place], [address] Urine blood detectionOrdered By: Edith Gore on 12-25-2024 Urine Occult Blood 250 /ul High Negative [facility] Urine clarityOrdered By: Demi Gore on 12-25-2024 Clarity (U) Clear Clear [facility] Urine color determinationOrd ered By: Edith Gore on 12-25-2024 Color (U) Yellow Yellow [facility] Urine glucose detectionOrder ed By: Edith Gore on 12-25-2024 Glucose Ql (U) Normal mg/dl Normal [facility] Urine leukocyte esterase det ection by dipstickOrdered By: Edith Gore on 12-25-2024 Leukocyte esterase Test strip Ql (U) Negative Negative [facility] Urine pHOrdered By: Edith garcia on 12-25-2024 pH (U) 6.0 [pH] 5.0 - 8.0 [facility] Urine protein measurement (m ass/volume)Ordered By: Edith Gore on 12-25-2024 Protein (U) [Mass/Vol] 66.5 mg/dL High 0.0-12.0 [facility] Urine protein/creatinine mas s ratioOrdered By: Edith Gore on 12-25-2024 Protein/Creatinine (U) [Mass ratio] 652 mg/g CRE High 0-200 [facility] Urine specific gravity measu rementOrdered By: Edith Gore on 12-25-2024 Specific gravity (U) [Rel density] 1.020 1.002-1.030 [facility] Urine urobilinogen measureme ntOrdered By: Edith Gore on 12-25-2024 Urobilinogen Ql (U) Normal mg/dl Normal [facility] Urobilinogen Ql (U)Ordered B y: Edith Gore on 12-25-2024 Urine Urobilinogen Normal mg/dl Normal [facility] White blood cell (WBC) count Ordered By: Edith Gore on 12-25-2024 WBC (Bld) [#/Vol] 18.3 10*3/uL High 4.4-11.0 [facility] CNOVon 10-26-2024 CNOV Office Visit ([facility] ) -- KRYSTEN CROOK V ([id number]) 1985 M Date Time Provider Department 10/26/24 10:40 AM HUY MARQUEZ During your visit today, we recorded the following information about you: Pulse Blood pressure Weight Height 72/minute 140/90 133.2 kg 1.727 m Huy Marquez MD 10/26/2024 10:54 AM Signed Huy Marquez MD [address] [place] [address] Dept: [phone] Dept Visit Date: October 26, 2024 Name: Krysten Crook Date of : 1985 MRN/E #: [id number] Subjective Chief Complaint: Follow Up Subjective Krysten Crook is a 39 year old male here with the following concern(s): - Quit vaping 2 months ago. Doing well with this; has no cravings and does not feel the need to restart - Following with rheum for vasculitis; improving. Has upcoming appointment with kidney doctor - Of note patient admits to forgetting to take lisinopril multiple times weekly - No concerns or questions today Active Non-Hospital Problems Diagnosis Class 3 severe obesity without serious comorbidity in adult (HCC) Hypertension Hypercholesterolemia IgA mediated leukocytoclastic vasculitis (HCC) PAST MEDICAL HISTORY Diagnosis Date Hypercholesterolemia Current Outpatient Medications Medication Sig atorvastatin (LIPITOR) 20 mg tablet Take 20 mg by mouth once daily. lisinopril (ZESTRIL) 10 mg tablet Take 1 tablet by mouth every afternoon. No current facility-administered medications for this visit. Objective Objective 10/26/24 1030 10/26/24 1048 BP: 148/84 140/90 BP Site: Left Arm BP Position: Sitting BP Cuff Size: Regular Adult Pulse: 72 SpO2: 96% Weight: 133.2 kg (293 lb 10.4 oz) Height: 172.7 cm (5' 8) Body mass index is 44.65 kg/m?. Last 3 Encounter BP Readings: Date: BP: 10/26/2024 148/84 08/24/2024 110/83 08/10/2024 120/85[asymptomatic, recheck b/p[ Last 3 Encounter Wt Readings: Date: Wt: 10/26/2024 133.2 kg (293 lb 10.4 oz) 08/02/2024 129.6 kg (285 lb 11.5 oz) 07/13/2024 117.9 kg (260 lb) Physical Exam Vitals and nursing note reviewed. Constitutional: General: He is not in acute distress. HENT: Head: Normocephalic and atraumatic. Eyes: Conjunctiva/sclera: Conjunctivae normal. Cardiovascular: Rate and Rhythm: Normal rate and regular rhythm. Heart sounds: No murmur heard. No friction rub. No gallop. Pulmonary: Effort: Pulmonary effort is normal. No respiratory distress. Breath sounds: Normal breath sounds. No stridor. No wheezing, rhonchi or rales. Skin: General: Skin is warm and dry. Coloration: Skin is not jaundiced. Neurological: General: No focal deficit present. Mental Status: He is alert. Assessment / Plan Krysten was seen today for follow up. Diagnoses and all orders for this visit: Nicotine dependence, uncomplicated, unspecified nicotine product type - Resolved; patient quit 2 months and is doing well without cravings and no desire to resume - Continued cessation encouraged - Counseling, education, support provided; reviewed precaution measures and when to seek additional care IgA mediated leukocytoclastic vasculitis (HCC) - Following with rheum; improving - Counseling, education, support provided; reviewed precaution measures and when to seek additional care Hypertension, unspecified type - Missing doses of lisinopril multiple times weekly - Uncontrolled - Strongly encouraged taking lisinopril everyday - Counseling, education, support provided; reviewed precaution measures and when to seek additional care Return in about 3 months (around 01/24/2025) for hypertension. Discussed the above with the patient using shared decision-making. The patient voiced understanding and agreed with the plan. 1. Nicotine dependence, uncomplicated, unspecified nicotine product type - ICD9: 305.1, ICD10: F17.200 (primary diagnosis) 2. IgA mediated leukocytoclastic vasculitis (HCC) - ICD9: 287.0, ICD10: D69.0 3. Hypertension, unspecified type - ICD9: 401.9, ICD10: I10 Medical Decision Making: Problems: Moderate: 2+ stable chronic illnesses Risk: Moderate: Drug management Medical Decision Making Level: 4 - Moderate Provider: Huy Marquez MD Date: October 26, 2024 Allergies As of Date: 10/26/2024 Noted Allergy Reaction KEFLEX (CEPHALEXIN) 06/24/2024 4 - Hives Date Reviewed: 10/26/2024 Reviewed by: Sujata Willingham MA - Fully Assessed Reason for Visit: Follow Up [171] Primary Visit Diagnosis:Nicotine dependence, uncomplicated, unspecified nicotine product type [F17.200] Other Visit Diagnoses:IgA mediated leukocytoclastic vasculitis (HCC) [D69.0] Hypertension, unspecified type [I10] Prescriptions as of 10/26/2024 - atorvastatin (LIPITOR) 20 mg tablet Take 20 mg by mouth once daily. - lisinopril (ZESTRIL) 10 mg tablet Take 1 (more content not included)... [facility] ([facility]) -- KRYSTEN CROOK V ([id number]) 1985 M Date Time Provider Department 10/25/24 HUY MARQUEZ [facility] During your visit today, we recorded the following information about you: Hermila Buckley 10/25/2024 9:40 AM Signed Left a message for the patient to call the office back to see if he would like to re-schedule his appointment he missed today with Dr. Marquez. Thank you Krysten Richardson 10/25/2024 11:06 AM Signed Patient called back and rescheduled for tomorrow 10/26. Thanks! Allergies As of Date: 10/25/2024 Noted Allergy Reaction KEFLEX (CEPHALEXIN) 06/24/2024 4 - Hives Date Reviewed: 08/24/2024 Reviewed by: Naila Xiong LPN - Fully Assessed Reason for Visit: Appointment [186] Cmt: 10/25/24 No Show [1558] Prescriptions as of 10/25/2024 - atorvastatin (LIPITOR) 20 mg tablet Take 20 mg by mouth once daily. - lisinopril (ZESTRIL) 10 mg tablet Take 1 tablet by mouth every afternoon. Problem List As Of Date 10/25/2024 Noted Resolved Class 3 severe obesity without serious comorbid*08/02/2024 Hypertension [I10] 08/02/2024 Hypercholesterolemia [E78.00] 08/02/2024 IgA mediated leukocytoclastic vasculitis (HCC) *08/02/2024 Nicotine dependence, uncomplicated [F17.200] 08/02/2024 Encounter Status:Closed by KRYSTEN RICHARDSON on 10/25/24 [facility] 10[facility]20[facility]2024 [facility] -- KRYSTEN CROOK V ([id number]) 1985 M Date Time Provider Department 10/20/24 HUY MARQUEZ [facility] During your visit today, we recorded the following information about you: Ron Parish 10/20/2024 10:52 AM Signed Patients mother in law Nicole called today. She wanted to confirm when his next appointment was. She was with patient so I spoke to him to make sure he was ok with me relaying the information to her and he said yes. He put Nicole back on the line and she was advised of the date/time. Allergies As of Date: 10/20/2024 Noted Allergy Reaction KEFLEX (CEPHALEXIN) 06/24/2024 4 - Hives Date Reviewed: 08/24/2024 Reviewed by: Naila Xiong LPN - Fully Assessed Reason for Visit: Appointment [186] Prescriptions as of 10/20/2024 - atorvastatin (LIPITOR) 20 mg tablet Take 20 mg by mouth once daily. - lisinopril (ZESTRIL) 10 mg tablet Take 1 tablet by mouth every afternoon. Problem List As Of Date 10/20/2024 Noted Resolved Class 3 severe obesity without serious comorbid*08/02/2024 Hypertension [I10] 08/02/2024 Hypercholesterolemia [E78.00] 08/02/2024 IgA mediated leukocytoclastic vasculitis (HCC) *08/02/2024 Nicotine dependence, uncomplicated [F17.200] 08/02/2024 Encounter Status:Closed by RON PARISH on 10/20/24 [facility] Miscellaneous Lab Procedureo n 09-07-2024 [facility] TEST Normal [facility] Comment on above: Order Comment: Urine , Random Result Comment: TEST RESULTS LIMITS Anti-C1Q Ab, IgG (RDL) <20 Units <20 Comments: This test was developed and its performance characteristics determined by [facility]. It has not been cleared or approved by the Food and Drug Administration. [facility] ORIGINAL REPORT ON FILE IN LAB CONTAINS ADDITIONAL TEST SITE INFORMATION. AMENDED REPORT 09/07/242207 [facility] [place] [facility] TEST previously reported as: TEST RESULTS LIMITS Anti-C1Q Ab, IgG (RDL) <20 Units <20 TESTING PERFORMED AT [facility]. ORIGINAL REPORT ON FILE IN LAB CONTAINS ADDITIONAL TEST SITE INFORMATION. Performed By: #### L 501.0900, L101.9900, L501.6710, L500.4050, L100.0100, L400.2010 #### [facility] [address] [place], [address] Cryoglobulins, Serumon 09-04 CRYOGLOBULIN,S Comment Normal None detected [facility] Comment on above: Order Comment: Test( s) [id number]-Tctwvgejdrna, Ql, Serum, Rflxwas developed and its performance characteristicsdetermined by [employer]. It has not been cleared or approvedby the Food and Drug Administration. Result Comment: None Detected at 72 hours Performed at: [address] [id number] Project Management Advisor: Enrrique Burnett PhD, Phone: [phone] Performed By: #### L 501.0900, L101.9900, L501.6710, L500.4050, L100.0100, L400.2010 #### [facility] [address] [place], [address] CBC W/Diff, Automatedon 08-18 Absolute Lymph 3.17 X10 3/uL Normal 0.83-4.51 [facility] Comment on above: Performed By: #### L 501.0900, L101.9900, L501.6710, L500.4050, L100.0100, L400.2010 #### [facility] [address] [place], [address] Absolute Neut 6.1 X10 3/uL Normal 2.0-7.7 [facility] Comment on above: Performed By: #### L 501.0900, L101.9900, L501.6710, L500.4050, L100.0100, L400.2010 #### [facility] [address] [place], [address] Basophils/100 WBC (Bld) 0.8 % Normal 0-1 [facility] Comment on above: Performed By: #### L 501.0900, L101.9900, L501.6710, L500.4050, L100.0100, L400.2010 #### [facility] [address] [place], [address] Eosinophils/100 WBC (Bld) 2.2 % Normal 0-5 [facility] Comment on above: Performed By: #### L 501.0900, L101.9900, L501.6710, L500.4050, L100.0100, L400.2010 #### [facility] [address] [place], [address] Erythrocyte distribution width (RBC) [Ratio] 12.5 % Normal 11.6-14.6 [facility] Comment on above: Performed By: #### L 501.0900, L101.9900, L501.6710, L500.4050, L100.0100, L400.2010 #### [facility] [address] [place], [address] Hematocrit (Bld) [Volume fraction] 46.2 % Normal 40-54 [facility] Comment on above: Performed By: #### L 501.0900, L101.9900, L501.6710, L500.4050, L100.0100, L400.2010 #### [facility] [address] [place], [address] Hemoglobin (Bld) [Mass/Vol] 15.0 g/dL Normal 13.0-16.5 [facility] Comment on above: Performed By: #### L 501.0900, L101.9900, L501.6710, L500.4050, L100.0100, L400.2010 #### [facility] [address] [place], [address] IG% 0.400 Normal 0.0-0.9 [facility] Comment on above: Result Comment: IG% - Immature Granulocytes (promyelocytes, myelocytes and metamyelocytes) > 1% indicates that a LEFT SHIFT is Present. Performed By: #### L 501.0900, L101.9900, L501.6710, L500.4050, L100.0100, L400.2010 #### [facility] [address] [place], [address] Lymphocytes/100 WBC (Bld) 31.1 % Normal 19-41 [facility] Comment on above: Performed By: #### L 501.0900, L101.9900, L501.6710, L500.4050, L100.0100, L400.2010 #### [facility] [address] [place], [address] MCH (RBC) [Entitic mass] 28.5 pg Normal 27.0-32.0 [facility] Comment on above: Performed By: #### L 501.0900, L101.9900, L501.6710, L500.4050, L100.0100, L400.2010 #### [facility] [address] [place], [address] MCHC (RBC) [Mass/Vol] 32.5 g/dL Normal 32-36 [facility] Comment on above: Performed By: #### L 501.0900, L101.9900, L501.6710, L500.4050, L100.0100, L400.2010 #### [facility] [address] [place], [address] MCV (RBC) [Entitic vol] 87.8 fL Normal 80-94 [facility] Comment on above: Performed By: #### L 501.0900, L101.9900, L501.6710, L500.4050, L100.0100, L400.2010 #### [facility] [address] [place], [address] Monocytes/100 WBC (Bld) 5.9 % Normal 0-10 [facility] Comment on above: Performed By: #### L 501.0900, L101.9900, L501.6710, L500.4050, L100.0100, L400.2010 #### [facility] [address] [place], [address] Neutrophils/100 WBC (Bld) 59.6 % Normal 47-70 [facility] Comment on above: Performed By: #### L 501.0900, L101.9900, L501.6710, L500.4050, L100.0100, L400.2010 #### [facility] [address] [place], [address] Nucleated RBC (Bld) [#/Vol] 0 10*3/uL Normal 0-5 [facility] Comment on above: Performed By: #### L 501.0900, L101.9900, L501.6710, L500.4050, L100.0100, L400.2010 #### [facility] [address] [place], [address] Platelet mean volume (Bld) [Entitic vol] 9.3 fL Normal 6.2-12.0 [facility] Comment on above: Performed By: #### L 501.0900, L101.9900, L501.6710, L500.4050, L100.0100, L400.2010 #### [facility] [address] [place], [address] Platelets (Bld) [#/Vol] 351 10*3/uL Normal 150-450 [facility] Comment on above: Performed By: #### L 501.0900, L101.9900, L501.6710, L500.4050, L100.0100, L400.2010 #### [facility] [address] [place], [address] RBC (Bld) [#/Vol] 5.26 10*6/uL Normal 4.6-6.2 [facility] Comment on above: Performed By: #### L 501.0900, L101.9900, L501.6710, L500.4050, L100.0100, L400.2010 #### [facility] [address] [place], [address] RDW SD 40.5 fl Normal 35.1-43.9 [facility] Comment on above: Performed By: #### L 501.0900, L101.9900, L501.6710, L500.4050, L100.0100, L400.2010 #### [facility] [address] [place], [address] WBC (Bld) [#/Vol] 10.2 10*3/uL Normal 4.4-11.0 [facility] Comment on above: Performed By: #### L 501.0900, L101.9900, L501.6710, L500.4050, L100.0100, L400.2010 #### [facility] [address] [place], [address] CRPon 08-29-2024 C-REACTIVE PROT 17.30 mg/L High 0.0-3.0 [facility] Comment on above: Result Comment: C-Re active Protein (CRP) provides useful information for the diagnosis, therapy and monitoring of inflammatory processes and associated diseases. For the evaluation of Relative Risk for Cardiovascular Disease, a High Sensitivity CRP (HSCRP) should be ordered. Performed By: #### L 501.0900, L101.9900, L501.6710, L500.4050, L100.0100, L400.2010 #### [facility] [address] [place], [address] Comprehensive Metabolic Prof ilon 08-29-2024 Albumin [Mass/Vol] 3.1 g/dL Low 3.2-5.0 [facility] Comment on above: Performed By: #### L 501.0900, L101.9900, L501.6710, L500.4050, L100.0100, L400.2010 #### [facility] [address] [place], [address] Albumin/Globulin [Mass ratio] 0.8 {ratio} Low 0.9-2.4 [facility] Comment on above: Performed By: #### L 501.0900, L101.9900, L501.6710, L500.4050, L100.0100, L400.2010 #### [facility] [address] [place], [address] ALK P 105 U/L Normal 45-117 [facility] Comment on above: Performed By: #### L 501.0900, L101.9900, L501.6710, L500.4050, L100.0100, L400.2010 #### [facility] [address] [place], [address] ALT [Catalytic activity/Vol] 101 U/L High 16-61 [facility] Comment on above: Performed By: #### L 501.0900, L101.9900, L501.6710, L500.4050, L100.0100, L400.2010 #### [facility] [address] [place], [address] AST [Catalytic activity/Vol] 40 U/L High 15-37 [facility] Comment on above: Performed By: #### L 501.0900, L101.9900, L501.6710, L500.4050, L100.0100, L400.2010 #### [facility] [address] [place], [address] Bilirubin [Mass/Vol] 0.40 mg/dL Normal 0.20-1.00 [facility] Comment on above: Result Comment: For patients on eltrombopag therapy, use of Dimension [place] TBIL is not recommended. Performed By: #### L 501.0900, L101.9900, L501.6710, L500.4050, L100.0100, L400.2010 #### [facility] [address] [place], [address] BUN/CRE 22.7 RATIO High 10-20 [facility] Comment on above: Performed By: #### L 501.0900, L101.9900, L501.6710, L500.4050, L100.0100, L400.2010 #### [facility] [address] [place], [address] CA,Total 9.2 mg/dL Normal 8.5-10.1 [facility] Comment on above: Performed By: #### L 501.0900, L101.9900, L501.6710, L500.4050, L100.0100, L400.2010 #### [facility] [address] [place], [address] Chloride [Moles/Vol] 104 mmol/L Normal 98-107 [facility] Comment on above: Performed By: #### L 501.0900, L101.9900, L501.6710, L500.4050, L100.0100, L400.2010 #### [facility] [address] [place], [address] CO2 [Moles/Vol] 24.0 mmol/L Normal 21.0-32.0 [facility] Comment on above: Performed By: #### L 501.0900, L101.9900, L501.6710, L500.4050, L100.0100, L400.2010 #### [facility] [address] [place], [address] Creatinine [Mass/Vol] 0.88 mg/dL Normal 0.70-1.30 [facility] Comment on above: Result Comment: The validity of the calculated GFR GFRAA in patients over 70 years has not been determined. Clinical correlation is essential. Performed By: #### L 501.0900, L101.9900, L501.6710, L500.4050, L100.0100, L400.2010 #### [facility] [address] [place], [address] EST GFR - AA 124 mL/min Normal >60 [facility] Comment on above: Result Comment: Afri can Uzbek GFR Calc Performed By: #### L 501.0900, L101.9900, L501.6710, L500.4050, L100.0100, L400.2010 #### [facility] [address] [place], [address] GAP 8 Normal 5-15 [facility] Comment on above: Performed By: #### L 501.0900, L101.9900, L501.6710, L500.4050, L100.0100, L400.2010 #### [facility] [address] [place], [address] GFR/1.73 sq M.predicted among non-blacks MDRD (S/P/Bld) [Vol rate/Area] 103 mL/min/{1.73_m2} Normal >60 [facility] Comment on above: Result Comment: Non- GFR Calc Performed By: #### L 501.0900, L101.9900, L501.6710, L500.4050, L100.0100, L400.2010 #### [facility] [address] [place], [address] Globulin (S) [Mass/Vol] 4.1 g/dL Normal 2.2-4.2 [facility] Comment on above: Performed By: #### L 501.0900, L101.9900, L501.6710, L500.4050, L100.0100, L400.2010 #### [facility] [address] [place], [address] Glucose [Mass/Vol] 103 mg/dL Normal 74-106 [facility] Comment on above: Result Comment: Fast ing Glucose result from 100 to 125 mg/dL suggests IMPAIRED HOMEOSTASIS per A.D.A. criteria. Performed By: #### L 501.0900, L101.9900, L501.6710, L500.4050, L100.0100, L400.2010 #### [facility] [address] [place], [address] Potassium [Moles/Vol] 3.8 mmol/L Normal 3.5-5.1 [facility] Comment on above: Performed By: #### L 501.0900, L101.9900, L501.6710, L500.4050, L100.0100, L400.2010 #### [facility] [address] [place], [address] Sodium [Moles/Vol] 136 mmol/L Normal 136-145 [facility] Comment on above: Performed By: #### L 501.0900, L101.9900, L501.6710, L500.4050, L100.0100, L400.2010 #### [facility] [address] [place], [address] T PROT 7.2 g/dL Normal 6.4-8.2 [facility] Comment on above: Performed By: #### L 501.0900, L101.9900, L501.6710, L500.4050, L100.0100, L400.2010 #### [facility] [address] [place], [address] Urea nitrogen [Mass/Vol] 20 mg/dL High 7-18 [facility] Comment on above: Performed By: #### L 501.0900, L101.9900, L501.6710, L500.4050, L100.0100, L400.2010 #### [facility] [address] [place], [address] EXAGENon 08-29-2024 EXAGEN MAILED SPECIMEN Normal [facility] Comment on above: Performed By: #### L 801.1549 #### [facility] [address] [place], [address] Erythrocyte Sed Rateon 08-29 SED RATE 36 mm/hr High 0-20 [facility] Comment on above: Performed By: #### L 501.0900, L101.9900, L501.6710, L500.4050, L100.0100, L400.2010 #### [facility] [address] [place], [address] Hepatitis B Surface Antibody on 08-29-2024 HEP B Surf Ab Reactive Normal [facility] Comment on above: Result Comment: Non Reactive: Inconsistent with immunity less than <10 mIU/mL Reactive: Consistent with immunity greater than or equal to 10 mIU/mL Performed By: #### L 501.0900, L101.9900, L501.6710, L500.4050, L100.0100, L400.2010 #### [facility] [address] [place], [address] Hepatitis B Surface Antigeno n 08-29-2024 HEP B Surf Ag Non-Reactive Normal Nonreactive [facility] Comment on above: Performed By: #### L 501.0900, L101.9900, L501.6710, L500.4050, L100.0100, L400.2010 #### [facility] [address] [place], [address] Hepatitis C Antibodyon 08-29 Hepatitis C AB Non-Reactive Normal Nonreactive [facility] Comment on above: Result Comment: Non Reactive: < 0.8 Equivocal: >/= 0.8 to < 1.0 Reactive: >/= 1.0 The CDC requires that a reactive/equivocal HCV antibody result be sent out for confirmation. HCV Quant by PCR testing. Performed By: #### L 501.0900, L101.9900, L501.6710, L500.4050, L100.0100, L400.2010 #### [facility] [address] [place], [address] Protein+Creatinine Ratio,Uri neon 08-29-2024 PROT:CRE RATIO 912 mg/g CRE High 0-200 [facility] Comment on above: Performed By: #### L 501.0900, L101.9900, L501.6710, L500.4050, L100.0100, L400.2010 #### [facility] [address] [place], [address] Protein (U) [Mass/Vol] 185.2 mg/dL High <11.9 [facility] Comment on above: Performed By: #### L 501.0900, L101.9900, L501.6710, L500.4050, L100.0100, L400.2010 #### [facility] [address] [place], [address] UR CREAT 203.00 mg/dL Normal NO RANGE EST. [facility] Comment on above: Performed By: #### L 501.0900, L101.9900, L501.6710, L500.4050, L100.0100, L400.2010 #### [facility] [address] [place], [address] Urinalysis, Routine (Dipstic k)on 08-29-2024 BILIRUBIN URINE Negative Normal Negative [facility] Comment on above: Order Comment: CLEAN CATCH Performed By: #### L 501.0900, L101.9900, L501.6710, L500.4050, L100.0100, L400.2010 #### [facility] [address] [place], [address] Clarity (U) Sl. Cloudy Normal Clear [facility] Comment on above: Order Comment: CLEAN CATCH Performed By: #### L 501.0900, L101.9900, L501.6710, L500.4050, L100.0100, L400.2010 #### [facility] [address] [place], [address] Color (U) Yellow Normal Yellow [facility] Comment on above: Order Comment: CLEAN CATCH Performed By: #### L 501.0900, L101.9900, L501.6710, L500.4050, L100.0100, L400.2010 #### [facility] [address] [place], [address] GLUCOSE, UR Normal Normal Normal [facility] Comment on above: Order Comment: CLEAN CATCH Performed By: #### L 501.0900, L101.9900, L501.6710, L500.4050, L100.0100, L400.2010 #### [facility] [address] [place], [address] KETONE UR Negative Normal Negative [facility] Comment on above: Order Comment: CLEAN CATCH Performed By: #### L 501.0900, L101.9900, L501.6710, L500.4050, L100.0100, L400.2010 #### [facility] [address] [place], [address] LEUK ESTERASE 25 /ul Abnormal Negative [facility] Comment on above: Order Comment: CLEAN CATCH Performed By: #### L 501.0900, L101.9900, L501.6710, L500.4050, L100.0100, L400.2010 #### [facility] [address] [place], [address] Nitrite Ql (U) Negative Normal Negative [facility] Comment on above: Order Comment: CLEAN CATCH Performed By: #### L 501.0900, L101.9900, L501.6710, L500.4050, L100.0100, L400.2010 #### [facility] [address] [place], [address] OCCULT BLOOD-UR 250 /ul Abnormal Negative [facility] Comment on above: Order Comment: CLEAN CATCH Performed By: #### L 501.0900, L101.9900, L501.6710, L500.4050, L100.0100, L400.2010 #### [facility] [address] [place], [address] pH UR 6.0 Normal 5.0 - 8.0 [facility] Comment on above: Order Comment: CLEAN CATCH Performed By: #### L 501.0900, L101.9900, L501.6710, L500.4050, L100.0100, L400.2010 #### [facility] [address] [place], [address] PROT DIPSTX 100 mg/dl Abnormal Negative [facility] Comment on above: Order Comment: CLEAN CATCH Performed By: #### L 501.0900, L101.9900, L501.6710, L500.4050, L100.0100, L400.2010 #### [facility] [address] [place], [address] SP.GR. DIPSTX 1.025 Normal 1.002-1.030 [facility] Comment on above: Order Comment: CLEAN CATCH Performed By: #### L 501.0900, L101.9900, L501.6710, L500.4050, L100.0100, L400.2010 #### [facility] [address] [place], [address] UROBILI Normal Normal Normal [facility] Comment on above: Order Comment: CLEAN CATCH Performed By: #### L 501.0900, L101.9900, L501.6710, L500.4050, L100.0100, L400.2010 #### [facility] [address] [place], [address] CNOVon 08-24-2024 CNOV Office Visit ([facility] ) -- KRYSTEN CROOK V ([id number]) 1985 M Date Time Provider Department 08/24/24 8:00 AM ROB ALBA [facility] During your visit today, we recorded the following information about you: Temperature Pulse Respiration Blood pressure 97.3 degrees 97/minute 16/minute 110/83 Naila iXong LPN 08/24/2024 8:24 AM Signed WOUND ASSESSMENT COMPLETED BY SHABANA CROWDER RN. Barbara Barlow, SHEELA 08/24/2024 8:52 AM Addendum HEALED RIGHT LOWER EXTREMITY ULCER: You may now take a bath or a shower with your healed ulcer uncovered/unprotected and resuming washing as normal. Apply moisturizing cream 1-2 x day, do not apply between your toes. Elevate your legs above the level of your heart and do ankle pumps and circles. Take 1/2 tab of a Multi-vitamin with zinc twice a day, Vitamin D3 5000 international unit(s) daily and eat high protein foods to help promote wound healing. Your ulcer(s) is(are) healed and you do not need to return to the [facility]. Please call if you have any problems or the ulcer reoccurs. Rob Alba, BELKIS 08/24/2024 9:03 AM Signed Wound Care Progress Note Subjective: Patient presents with: Wound Check HISTORY of PRESENT ILLNESS HPI Krysten Crook is a 39 year old male who presents today for wound/ulcer evaluation. History of Wound Context: Vasculitis ulcer Wound/Ulcer Pain Timing/Severity: AMB ROOMING INTAKE FLOWSHEET DATA Pain Pain Level: 0 Patient seen today for follow-up of the right lower extremity ulceration that had not healed at last visit. Patient has been following our wound care instructions and denies any new complaints. Patient denies any nausea, vomiting, fever, chills. 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 PAST MEDICAL HISTORY Diagnosis Date Hypercholesterolemia PAST SURGICAL HISTORY Procedure Laterality Date DENTAL SURGERY HX Social History Tobacco Use Smoking status: Former Current packs/day: 0.00 Average packs/day: 0.5 packs/day for 10.0 years (5.0 ttl pk-yrs) Types: Cigarettes Start date: 2008 Quit date: 2019 Years since quittin.8 Smokeless tobacco: Former Types: Chew Quit date: 2021 Vaping Use Vaping status: current everyday user Substances: Nicotine Substance Use Topics Alcohol use: Yes Comment: occasional Drug use: Never ALLERGIES Allergen Reactions Keflex [Cephalexin] Hives Current Outpatient Medications on File Prior to Visit Medication Sig atorvastatin (LIPITOR) 20 mg tablet Take 20 mg by mouth once daily. lisinopril (ZESTRIL) 10 mg tablet Take 1 tablet by mouth every afternoon. No current facility-administered medications on file prior to visit. Objective: BP 110/83 Pulse 97 Temp 36.3 ?C (97.3 ?F) Resp 16 Last 3 Encounter Wt Readings: Date: Wt: 08/02/2024 129.6 kg (285 lb 11.5 oz) 07/13/2024 117.9 kg (260 lb) 07/07/2024 127.5 kg (281 lb) Physical Exam Compression Therapy: Bilateral, Compression Stockings Treatments/Procedures Compression Therapy: Bilateral, Compression Stockings Peripheral Vascular R Calf Circumference (cm): 42.5 cm L Calf Circumference (cm): 41.9 cm R Ankle Measurement (cm): 28.6 cm L Ankle Measurement (cm): 29.7 cm Lower Extremity Circulation Pulses Palpation - LEFT dorsal pedis pulse: +2 Pulses Palpation - RIGHT dorsal pedis pulse: +2 Pulses Palpation - LEFT dorsal pedis pulse: +2 Pulses Palpation - RIGHT dorsal pedis pulse: +2 Neuro: Epicritic sensations are intact bilaterally. No clonus is noted. Negative Babinski exam. Derm: Skin Condition/Temp: Warm (BLE). Patient has completely healed all ulcerations on the lower extremities bilaterally. Patient does have a pink petechial type of skin rash to the lower extremities bilaterally. [place] scars are noted where epithelialization of the previous ulcerations have occurred bilaterally. At this point there is no signs of vasculitis he is healed well. Ortho: LLE: Swelling Musculoskeletal LLE: Swelling RLE: Swelling Muscle strength are 5/5 for all groups bilaterally. There is no pain with palpation. No crepitation is noted. LABS: No results found for: CRP No results found for: WSR No results found for: INR No results found for: APTT No results found for: HBA1C MICROBIOLOGY: Positive Micro-30 Days No results found for the last 720 hours. IMAGING: Last XR Foot - Impression Only No resulted procedures found. Last XR Ankle - Impression Only No resulted procedures found. Last MRI Foot - Impression Only No resulted procedures found. Last MRI Ankle - Impression Only No resulted procedures found. Wound 07/13/24 0837 Atypical Wound Pretibial Right (Active) Properties Placement Date 07/13/24 Placement Time 08 Location Pretibial (circumfirencial) Present on Original Admission Yes Wound Approximat (more content not included)... [facility] CNOVon 08-10-2024 [facility] Office Visit ([facility] ) -- KRYSTEN CROOK V ([id number]) 1985 M Date Time Provider Department 08/10/24 8:00 AM ROB ALBA [facility] During your visit today, we recorded the following information about you: Temperature Pulse Respiration Blood pressure 97.6 degrees 84/minute 6/minute 120/85 Barbara Barlow RN 08/10/2024 8:38 AM Addendum RIGHT LOWER EXTREMITY ULCER: SHOWER WITH YOUR DRESSING PROTECTED/COVERED CLEANSE ULCER WITH normal saline or vinegar solution (2 tablespoons of white vinegar in 1 Pint of distilled water) APPLY MOISTURIZING CREAM TO INTACT SKIN ON BOTH LEGS APPLY THERA HONEY FOAM TO ULCER, MAY TAPE IN PLACE CHANGE DRESSING EVERY OTHER DAY AND NEEDED APPLY SINGLE LAYER, HIGH STRENGTH TUBIGRIP TO BLE FROM THE BASE OF YOUR TOES TO JUST BELOW THE BEND IN YOUR KNEES. APPLY EARLY EVERY MORNING AND MAY REMOVE AT BEDTIME. Elevate your legs above the level of your heart and do ankle pumps and circles. Take 1/2 tab of a Multi-vitamin with zinc twice a day, Vitamin D3 5000 international unit(s) daily and eat high protein foods to help promote wound healing. Intake nurses to apply lidocaine viscous 2% to ulcer(s) qweek prior to debridement for pain control. If you have questions or concerns: Wednesday-Wednesday 8am-4:30pm, call the [facility] at [phone]. After 4:30pm, on weekends or holidays, call [facility] at [phone] and have the physician supervisor cap and hat production paged. Sun Morris RN 08/10/2024 8:18 AM Signed WOUND ASSESSMENT COMPLETED BY Rob Leach RN, DPM 08/10/2024 8:53 AM Signed Wound Care Progress Note Subjective: Patient presents with: Wound Check HISTORY of PRESENT ILLNESS HPI Krysten Crook is a 39 year old male who presents today for wound/ulcer evaluation. History of Wound Context: Vasculitis ulcer Wound/Ulcer Pain Timing/Severity: AMB ROOMING INTAKE FLOWSHEET DATA Pain Pain Level: 0 Patient seen today for vasculitis ulcerations of the lower extremities bilaterally. He tolerated the dressings well. He denies any new complaints. Patient has been able to return to work without difficulty. He has been referred to a specialist in [place] to follow-up with his vasculitis. [facility] dermatology made the referral. PAST MEDICAL HISTORY Diagnosis Date Hypercholesterolemia PAST SURGICAL HISTORY Procedure Laterality Date DENTAL SURGERY HX Social History Tobacco Use Smoking status: Former Current packs/day: 0.00 Average packs/day: 0.5 packs/day for 10.0 years (5.0 ttl pk-yrs) Types: Cigarettes Start date: 2008 Quit date: 2019 Years since quittin.8 Smokeless tobacco: Former Types: Chew Quit date: 2021 Vaping Use Vaping status: current everyday user Substances: Nicotine Substance Use Topics Alcohol use: Yes Comment: occasional Drug use: Never ALLERGIES Allergen Reactions Keflex [Cephalexin] Hives Current Outpatient Medications on File Prior to Visit Medication Sig atorvastatin (LIPITOR) 20 mg tablet Take 20 mg by mouth once daily. lisinopril (ZESTRIL) 10 mg tablet Take 1 tablet by mouth every afternoon. No current facility-administered medications on file prior to visit. Objective: BP 120/85 Pulse 84 Temp 36.4 ?C (97.6 ?F) Resp 6 Last 3 Encounter Wt Readings: Date: Wt: 08/02/2024 129.6 kg (285 lb 11.5 oz) 07/13/2024 117.9 kg (260 lb) 07/07/2024 127.5 kg (281 lb) Physical Exam Compression Therapy: Bilateral, Double layer below the knee Treatments/Procedures Compression Therapy: Bilateral, Double layer below the knee Peripheral Vascular R Calf Circumference (cm): 43.2 cm L Calf Circumference (cm): 42.2 cm R Ankle Measurement (cm): 27.4 cm L Ankle Measurement (cm): 28.5 cm Lower Extremity Circulation Pulses Palpation - LEFT dorsal pedis pulse: +1 Pulses Palpation - RIGHT dorsal pedis pulse: +2 Pulses Palpation - LEFT dorsal pedis pulse: +1 Pulses Palpation - RIGHT dorsal pedis pulse: +2 Neuro: Epicritic sensations intact. No clonus is noted to the lower extremities bilaterally. Light touch sensations present. Derm: Skin Condition/Temp: Warm (ble). See picture and description of the ulceration on the right lower extremity below. The left lower extremity ulcerations have completely epithelialized and are well-healed. Patient does have some hyperpigmented scars as a result of the ulcer however the right lower extremity still has a full-thickness ulceration remaining over the lateral malleolus measuring 0.3 cm x 0.2 cm x 0.1 cm. Decreased from 69.3 cm? to 0.06 cm?. There is red granulation tissue with no necrotic tissue seen. Moderate serosanguineous drainage is present. No new ulcers. Large amount of epithelialization have occurred Ortho: LLE: Swelling Musculoskeletal LLE: Swelling RLE: Swelling No pain with palpation to the ulc (more content not included)... [facility] 08-03-2024 [facility] Office Visit ([facility] ) -- KRYSTEN CROOK V ([id number]) 1985 M Date Time Provider Department 08/03/24 8:30 AM ROB ALBA [facility] During your visit today, we recorded the following information about you: Temperature Pulse Respiration Blood pressure 97.5 degrees 86/minute 18/minute 135/83 Ayesha Rolon RN 08/03/2024 8:54 AM Signed WOUND ASSESSMENT COMPLETED BY Nancy Corral RN, RN 08/03/2024 8:59 AM Signed RIGHT LOWER EXTREMITY AND LEFT LOWER EXTREMITY ULCERS: Shower with dressing protected/covered Cleanse ulcers with normal saline Apply betamethasone cream to intact skin Apply THERA HONEY FOAM to ulcers Cover with non adhesive foam as needed Apply 2 layer compression bandage system Calamine May pad ankle/achilles with felt/foam or cast padding as needed Change weekly at [facility] and as needed If problems with compression and you are instructed, remove compression wrap, cleanse the ulcer with saline, apply steroid cream, cover with dry gauze and change dressing 2xday. Elevate your legs above the level of your heart and do ankle pumps and circles. Take 1/2 tab of a Multi-vitamin with zinc twice a day, Vitamin D3 5000 international unit(s) daily and eat high protein foods to help promote wound healing. Intake nurses to apply lidocaine viscous 2% to ulcer(s) qweek prior to debridement for pain control. If you have questions or concerns: Wednesday-Wednesday 8am-4:30pm, call the [facility] at [phone]. After 4:30pm, on weekends or holidays, call [facility] at [phone] and have the physician supervisor cap and hat production paged. Rob Alba DPM 08/03/2024 9:25 AM Signed Wound Care Progress Note Subjective: Patient presents with: Wound Care HISTORY of PRESENT ILLNESS HPI Krysten Crook is a 39 year old male who presents today for wound/ulcer evaluation. History of Wound Context: Vasculitis ulcer Wound/Ulcer Pain Timing/Severity: AMB ROOMING INTAKE FLOWSHEET DATA Patient seen today for bilateral lower extremity IgA vasculitis ulcerations. Patient states that he is doing quite well. Denies any new complaints. He is returned to work without problem and no pain. Patient tolerated the Coflex TLC wraps well. Been using Thera honey foam to the ulcers and then covering with the calamine 2 layer compression dressing system. This is worked well. PAST MEDICAL HISTORY Diagnosis Date Hypercholesterolemia PAST SURGICAL HISTORY Procedure Laterality Date DENTAL SURGERY HX Social History Tobacco Use Smoking status: Former Current packs/day: 0.00 Average packs/day: 0.5 packs/day for 10.0 years (5.0 ttl pk-yrs) Types: Cigarettes Start date: 2008 Quit date: 2019 Years since quittin.7 Smokeless tobacco: Former Types: Chew Quit date: 2021 Vaping Use Vaping status: current everyday user Substances: Nicotine Substance Use Topics Alcohol use: Yes Comment: occasional Drug use: Never ALLERGIES Allergen Reactions Keflex [Cephalexin] Hives Current Outpatient Medications on File Prior to Visit Medication Sig atorvastatin (LIPITOR) 20 mg tablet Take 20 mg by mouth once daily. lisinopril (ZESTRIL) 10 mg tablet Take 1 tablet by mouth every afternoon. No current facility-administered medications on file prior to visit. Objective: BP 135/83 Pulse 86 Temp 36.4 ?C (97.5 ?F) Resp 18 Last 3 Encounter Wt Readings: Date: Wt: 08/02/2024 129.6 kg (285 lb 11.5 oz) 07/13/2024 117.9 kg (260 lb) 07/07/2024 127.5 kg (281 lb) Physical Exam Compression Therapy: Bilateral, Double layer below the knee Treatments/Procedures Compression Therapy: Bilateral, Double layer below the knee Peripheral Vascular R Calf Circumference (cm): 43.5 cm L Calf Circumference (cm): 44 cm R Ankle Measurement (cm): 28.6 cm L Ankle Measurement (cm): 32 cm Lower Extremity Circulation Pulses Palpation - LEFT dorsal pedis pulse: +1 Pulses Palpation - RIGHT dorsal pedis pulse: +2 Pulses Palpation - LEFT dorsal pedis pulse: +1 Pulses Palpation - RIGHT dorsal pedis pulse: +2 Neuro: Epicritic sensations intact. No clonus noted. Derm: Skin Condition/Temp: Warm. See picture and description of the ulcerations below. There is significant epithelialization that has occurred over the past week for patient. He is healing quite well. The total square centimeters are greatly reduced. For the right lower extremity the square centimeter has reduced from 151.97 to 69.3 cm? and for the left lower extremity the ulceration is decreased from 144 cm? to 0.36 cm?. There is no erythema, purulent drainage or malodor noted. Scarring from the previous vasculitis noted. Ortho: LLE: Swelling Musculoskeletal LLE: Swelling RLE: Swelling No pain with palpation to the ulcerations. No crepitation noted. Muscle strength are normal to the lower extremities. L (more content not included)... [facility] -- KRYSTEN CROOK V ([id number]) 1985 M Date Time Provider Department 08/02/24 9:20 AM HUY MARQUEZ [facility] During your visit today, we recorded the following information about you: Pulse Blood pressure Weight 79/minute 125/86 129.6 kg Huy Marquez MD 08/02/2024 9:02 PM Signed Huy Marquez MD [address] [place] [address] Dept: [phone] Dept Visit Date: August 02, 2024 Name: Krysten Crook Date of : 1985 MRN/E #: [id number] Subjective Chief Complaint: New Patient (Pt here to establish with a new pcp. ) Subjective Krysten Crook is a 39 year old male here for annual preventative patient visit and also has the following concern(s): - Presenting with - No concerns or questions today Active Non-Hospital Problems Diagnosis Class 3 severe obesity without serious comorbidity in adult (HCC) Hypertension Hypercholesterolemia IgA mediated leukocytoclastic vasculitis (HCC) Nicotine dependence, uncomplicated PAST MEDICAL HISTORY Diagnosis Date Hypercholesterolemia PAST SURGICAL HISTORY Procedure Laterality Date DENTAL SURGERY HX FAMILY HISTORY Problem Relation Age of Onset Cancer Maternal Grandfather Hypertension Maternal Grandfather Diabetes Maternal Grandfather Social History Tobacco Use Smoking status: Former Current packs/day: 0.00 Average packs/day: 0.5 packs/day for 10.0 years (5.0 ttl pk-yrs) Types: Cigarettes Start date: 2008 Quit date: 2019 Years since quittin.7 Smokeless tobacco: Former Types: Chew Quit date: 2021 Vaping Use Vaping status: current everyday user Substances: Nicotine Substance Use Topics Alcohol use: Yes Comment: occasional Drug use: Never reports being sexually active and has had partner(s) who are female. He reports using the following method of control/protection: Surgical. Employer And Job Title: No employer specified (work for [employer]) Years Of Education Completed: GED years Marital Status: to corie with no children Social History Social History Narrative - Physical activity: goes to gym - Life goals: visit [place] - Passions: swimming - Finds support from - Lives with and mother in law - Animal exposure: cat - Denies utility, transportation, housing, or food insecurities - Denies current or prior history of violence, trauma, or abuse ALLERGIES Allergen Reactions Keflex [Cephalexin] Hives Current Outpatient Medications Medication Sig atorvastatin (LIPITOR) 20 mg tablet Take 20 mg by mouth once daily. lisinopril (ZESTRIL) 10 mg tablet Take 1 tablet by mouth every afternoon. No current facility-administered medications for this visit. Objective Objective 08/02/24 0911 08/02/24 0916 BP: 135/93 125/86 Pulse: 79 SpO2: 97% Weight: 129.6 kg (285 lb 11.5 oz) Body mass index is 43.44 kg/m?. Last 3 Encounter BP Readings: Date: BP: 08/02/2024 125/86 07/27/2024 137/94[pt asyptomatic[ 07/20/2024 119/86 Last 3 Encounter Wt Readings: Date: Wt: 08/02/2024 129.6 kg (285 lb 11.5 oz) 07/13/2024 117.9 kg (260 lb) 07/07/2024 127.5 kg (281 lb) Physical Exam Vitals and nursing note reviewed. Constitutional: General: He is not in acute distress. HENT: Head: Normocephalic and atraumatic. Eyes: Conjunctiva/sclera: Conjunctivae normal. Cardiovascular: Rate and Rhythm: Normal rate and regular rhythm. Heart sounds: No murmur heard. No friction rub. No gallop. Pulmonary: Effort: Pulmonary effort is normal. No respiratory distress. Breath sounds: Normal breath sounds. No stridor. No wheezing, rhonchi or rales. Abdominal: General: There is no distension. Palpations: Abdomen is soft. There is no mass. Tenderness: There is no abdominal tenderness. Musculoskeletal: Comments: Bilateral lower extremities wrapped Skin: General: Skin is warm and dry. Coloration: Skin is not jaundiced. Neurological: General: No focal deficit present. Mental Status: He is alert. Assessment / Plan Krysten was seen today for new patient. Diagnoses and all orders for this visit: Wellness examination - I have reviewed the problem list with the patient and updated as necessary. - I have reviewed the medical, surgical, and family histories with the patient and updated as necessary. - I have reviewed the substance use, sexual activity, socioeconomic, and social documentation histories with the patient and updated as necessary. - I have reviewed the allergy list with the patient and updated as necessary. - I have reviewed the medication list with the patient and updated as necessary. Screening for depression Encounter for screening examination for other mental health and behavioral disorders - PHQ2 score of 0 today - GAD2 score of 0 to (more content not included)... [facility] 07-27-2024 [facility] Office Visit ([facility] ) -- KRYSTEN CROOK V ([id number]) 1985 M Date Time Provider Department 07/27/24 8:30 AM ROB ALBA [facility] During your visit today, we recorded the following information about you: Temperature Pulse Respiration Blood pressure 97.6 degrees 73/minute 18/minute 137/94 Ayesha Rolon RN 07/27/2024 8:54 AM Signed WOUND ASSESSMENT COMPLETED BY Barbara Harris LPN, RN 07/27/2024 8:52 AM Signed RIGHT LOWER EXTREMITY AND LEFT LOWER EXTREMITY ULCERS: Shower with dressing protected/covered Cleanse ulcers with normal saline Apply betamethasone cream to intact skin Apply THERA HONEY FOAM to ulcers Cover with non adhesive foam as needed Apply 2 layer compression bandage system Earleamine May pad ankle/achilles with felt/foam or cast padding as needed Change weekly at [facility] and as needed If problems with compression and you are instructed, remove compression wrap, cleanse the ulcer with saline, apply steroid cream, cover with dry gauze and change dressing 2xday. Elevate your legs above the level of your heart and do ankle pumps and circles. Take 1/2 tab of a Multi-vitamin with zinc twice a day, Vitamin D3 5000 international unit(s) daily and eat high protein foods to help promote wound healing. Intake nurses to apply lidocaine viscous 2% to ulcer(s) qweek prior to debridement for pain control. If you have questions or concerns: Wednesday-Wednesday 8am-4:30pm, call the [facility] at [phone]. After 4:30pm, on weekends or holidays, call [facility] at [phone] and have the physician supervisor cap and hat production paged. Rob Alba DPM 07/27/2024 9:28 AM Signed Wound Care Progress Note Subjective: Patient presents with: Wound Care HISTORY of PRESENT ILLNESS HPI Krysten Crook is a 39 year old male who presents today for wound/ulcer evaluation. History of Wound Context: Autoimmune vasculitis ulcer Wound/Ulcer Pain Timing/Severity: AMB ROOMING INTAKE FLOWSHEET DATA Pain Pain Level: 1 Pain Location: (right and left leg) Description: (itchy) Frequency: Intermittent Intervention/Comfort measure: (tap the dressing) Patient seen today for follow-up of bilateral lower extremity ulcerations. He tolerated the Thera honey pads with thick Coflex wraps. He denies any new complaints and states he is doing great. He feels like the ulcers are improving PAST MEDICAL HISTORY Diagnosis Date Essential hypertension Hypercholesterolemia Vasculitis (HCC) PAST SURGICAL HISTORY Procedure Laterality Date DENTAL SURGERY HX NONE 07/07/2024 Social History Tobacco Use Smoking status: Never Smokeless tobacco: Current Tobacco comments: VAPES ALLERGIES Allergen Reactions Keflex [Cephalexin] Hives Current Outpatient Medications on File Prior to Visit Medication Sig atorvastatin (LIPITOR) 20 mg tablet Take 20 mg by mouth once daily. lisinopril (ZESTRIL) 10 mg tablet Take 1 tablet by mouth every afternoon. No current facility-administered medications on file prior to visit. Objective: BP 137/94 Pulse 73 Temp 36.4 ?C (97.6 ?F) Resp 18 Last 3 Encounter Wt Readings: Date: Wt: 07/13/2024 117.9 kg (260 lb) 07/07/2024 127.5 kg (281 lb) 06/24/2024 128.5 kg (283 lb 4.7 oz) Physical Exam Compression Therapy: Bilateral, Double layer below the knee Treatments/Procedures Compression Therapy: Bilateral, Double layer below the knee Peripheral Vascular R Calf Circumference (cm): 43.7 cm L Calf Circumference (cm): 42.5 cm R Ankle Measurement (cm): 29.8 cm L Ankle Measurement (cm): 28.5 cm Lower Extremity Circulation Pulses Palpation - LEFT dorsal pedis pulse: +2 Pulses Palpation - RIGHT dorsal pedis pulse: +2 Pulses Palpation - LEFT dorsal pedis pulse: +2 Pulses Palpation - RIGHT dorsal pedis pulse: +2 Neuro: Epicritic sensations intact. No clonus noted. This is bilaterally Derm: Skin Condition/Temp: Warm. See picture and description of the ulcerations on bilateral lower extremities below. Patient has decreased square centimeter size. The right lower extremity ulceration decreased from 549.48 cm? to 151.97 cm?. The left lower extremity ulceration also decreased in size from 445.2 cm? to 144 cm?. Patient has large amount of serosanguineous drainage. There is increased granulation tissue in these ulcers with no signs of infection today. Musculoskeletal LLE: Swelling RLE: Swelling Muscle strength are normal to the lower extremities. Mild pain with just direct pressure to the ulcer. This is minimal. No crepitation bilaterally LABS: No results found for: CRP No results found for: WSR No results found for: INR No results found for: APTT No results found for: HBA1C MICROBIOLOGY: Positive Micro-30 Days No results found for the last 720 hours. IMAGING: Last XR Foot - Impression (more content not included)... [facility] 07-20-2024 [facility] Office Visit ([facility] ) -- KRYSTEN CROOK V ([id number]) 1985 M Date Time Provider Department 07/20/24 9:00 AM ROB ALBA [facility] During your visit today, we recorded the following information about you: Temperature Pulse Respiration Blood pressure 97.8 degrees 98/minute 16/minute 119/86 Naila Xiong LPN 07/20/2024 9:25 AM Signed WOUND ASSESSMENT COMPLETED BY MELQUIADES BERRIOS LPN. PT C/O BLE BEING PRURITIC. Barbara Barlow, SHEELA 07/20/2024 9:49 AM Addendum RIGHT LOWER EXTREMITY AND LEFT LOWER EXTREMITY ULCERS: Shower with dressing protected/covered Cleanse ulcers with normal saline Apply betamethasone cream to intact skin Apply THERA HONEY FOAM to ulcers Cover with non adhesive foam as needed Apply 2 layer compression bandage system Calamine May pad ankle/achilles with felt/foam or cast padding as needed Change weekly at [facility] and as needed If problems with compression and you are instructed, remove compression wrap, cleanse the ulcer with saline, apply steroid cream, cover with dry gauze and change dressing 2xday. Elevate your legs above the level of your heart and do ankle pumps and circles. Take 1/2 tab of a Multi-vitamin with zinc twice a day, Vitamin D3 5000 international unit(s) daily and eat high protein foods to help promote wound healing. Intake nurses to apply lidocaine viscous 2% to ulcer(s) qweek prior to debridement for pain control. If you have questions or concerns: Wednesday-Wednesday 8am-4:30pm, call the [facility] at [phone]. After 4:30pm, on weekends or holidays, call [facility] at [phone] and have the physician supervisor cap and hat production paged. Rob Alba DPM 07/20/2024 10:18 AM Signed Wound Care Progress Note Subjective: Patient presents with: Wound Check HISTORY of PRESENT ILLNESS HPI Krysten Crook is a 39 year old male who presents today for wound/ulcer evaluation. History of Wound Context: Atypical due to an IgA vasculitis ulcer Wound/Ulcer Pain Timing/Severity: AMB ROOMING INTAKE FLOWSHEET DATA Pain Pain Level: 0 Patient seen today for bilateral lower extremity ulcerations. Patient tolerated the Coflex TLC wraps well and the Thera honey pad. He states his pain was much better controlled. He denies nausea vomiting fever chills. No new lower extremity complaints. Patient is hoping to go back to work on Wednesday. He is able to get the wraps into the boots that he has to wear at work. PAST MEDICAL HISTORY Diagnosis Date Essential hypertension Hypercholesterolemia Vasculitis (HCC) PAST SURGICAL HISTORY Procedure Laterality Date DENTAL SURGERY HX NONE 07/07/2024 Social History Tobacco Use Smoking status: Never Smokeless tobacco: Current Tobacco comments: VAPES ALLERGIES Allergen Reactions Keflex [Cephalexin] Hives Current Outpatient Medications on File Prior to Visit Medication Sig atorvastatin (LIPITOR) 20 mg tablet Take 20 mg by mouth once daily. lisinopril (ZESTRIL) 10 mg tablet Take 1 tablet by mouth every afternoon. No current facility-administered medications on file prior to visit. Objective: BP 119/86 Pulse 98 Temp 36.6 ?C (97.8 ?F) Resp 16 Last 3 Encounter Wt Readings: Date: Wt: 07/13/2024 117.9 kg (260 lb) 07/07/2024 127.5 kg (281 lb) 06/24/2024 128.5 kg (283 lb 4.7 oz) Physical Exam Compression Therapy: Bilateral, Double layer below the knee Treatments/Procedures Compression Therapy: Bilateral, Double layer below the knee Peripheral Vascular R Calf Circumference (cm): 43.7 cm L Calf Circumference (cm): 43.3 cm R Ankle Measurement (cm): 28.4 cm L Ankle Measurement (cm): 30.4 cm Lower Extremity Circulation Pulses Palpation - LEFT dorsal pedis pulse: +2 Pulses Palpation - RIGHT dorsal pedis pulse: +2 Pulses Palpation - LEFT dorsal pedis pulse: +2 Pulses Palpation - RIGHT dorsal pedis pulse: +2 Neuro: Epicritic sensations intact bilaterally no clonus is noted. Derm: Skin Condition/Temp: Warm (BLE). See picture and description of the ulcerations below. There is epithelialization for the ulcerations. Patient has increased red granulation tissue. The ulcerations are smaller. The right pretibial ulceration slightly decreased in size from 594.72 cm? to 549.48 cm? and the left lower extremity ulceration decreased from 468.42 cm? to 44 5 2 cm?. The most improvement was seen with the ulceration appearance. There is copious amounts of serosanguineous drainage bilaterally. No signs of infection today. Ortho: LLE: Swelling Musculoskeletal LLE: Swelling RLE: Swelling Pain is present with palpation to the ulcerations. No crepitation noted. Muscle strength are normal to the lower extremities and patient able to walk without problem. LABS: No results found for: CRP No results found for: WSR No results found for: INR No results found for: APTT (more content not included)... [facility] 07-13-2024 [facility] Office Visit ([facility] ) -- KRYSTEN CROOK V ([id number]) 1985 M Date Time Provider Department 07/13/24 8:30 AM ROB ALBA [facility] During your visit today, we recorded the following information about you: Temperature Pulse Respiration Blood pressure 97.9 degrees 88/minute 16/minute 123/76 Weight Height 117.9 kg 1.727 m Nancy Mascorro RN 07/13/2024 8:47 AM Signed ASSESSMENT COMPLETED BY AYESHA ROLON RN. Pt states that gauze irritates his skin. 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 No dressings to wounds today. Pt has taken a taper down round of prednisone and also antibiotics. Barbara Barlow RN 07/13/2024 9:12 AM Signed RIGHT LOWER EXTREMITY AND LEFT LOWER EXTREMITY ULCERS: Shower with dressing protected/covered Cleanse ulcers with normal saline Apply betamethasone cream to intact skin Apply THERA HONEY FOAM to ulcers Cover with non adhesive foam as needed Apply 2 layer compression bandage system Calamine May pad ankle/achilles with felt/foam or cast padding as needed Change weekly at [facility] and as needed If problems with compression and you are instructed, remove compression wrap, cleanse the ulcer with saline, apply steroid cream, cover with dry gauze and change dressing 2xday. Elevate your legs above the level of your heart and do ankle pumps and circles. Take 1/2 tab of a Multi-vitamin with zinc twice a day, Vitamin D3 5000 international unit(s) daily and eat high protein foods to help promote wound healing. Intake nurses to apply lidocaine viscous 2% to ulcer(s) qweek prior to debridement for pain control. If you have questions or concerns: Wednesday-Wednesday 8am-4:30pm, call the [facility] at [phone]. After 4:30pm, on weekends or holidays, call [facility] at [phone] and have the physician supervisor cap and hat production paged. Rob Alba, BELKIS 07/13/2024 9:42 AM Signed Wound Care Progress Note Subjective: Patient presents with: Wound Check HISTORY of PRESENT ILLNESS HPI Krysten Crook is a 39 year old male who presents today for wound/ulcer evaluation. History of Wound Context: Vasculitis ulcer Wound/Ulcer Pain Timing/Severity: AMB ROOMING INTAKE FLOWSHEET DATA Pain Pain Level: 7 Pain Location: Leg-Left (and right leg) Description: Burning (pressure) Frequency: Intermittent Intervention/Comfort measure: Medication Patient seen today relating that he has developed a vasculitis IgA ulcerations on the lower extremities. [facility] [place] [facility] [place] of [place] water[place]. Apparently he got a strep infection that went up his nares and subsequently developed vasculitis that was confirmed by biopsy. Patient has had 2 rounds of high-dose steroids and antibiotics. Currently he is not putting anything on the ulcerations and leaving them open to air. They are painful even with light touch today he has discomfort. He has not seen much improvement therefore presents to the wound center today. PAST MEDICAL HISTORY Diagnosis Date Essential hypertension Hypercholesterolemia Vasculitis (HCC) PAST SURGICAL HISTORY Procedure Laterality Date DENTAL SURGERY HX NONE 07/07/2024 ALLERGIES Allergen Reactions Keflex [Cephalexin] Hives Current Outpatient Medications on File Prior to Visit Medication Sig atorvastatin (LIPITOR) 20 mg tablet Take 20 mg by mouth once daily. lisinopril (ZESTRIL) 10 mg tablet Take 1 tablet by mouth every afternoon. No current facility-administered medications on file prior to visit. Objective: BP 123/76 Pulse 88 Temp 36.6 ?C (97.9 ?F) Resp 16 Ht 172.7 cm (5' 8) Wt 117.9 kg (260 lb) BMI 39.53 kg/m? Last 3 Encounter Wt Readings: Date: Wt: 07/13/2024 117.9 kg (260 lb) 07/07/2024 127.5 kg (281 lb) 06/24/2024 128.5 kg (283 lb 4.7 oz) Physical Exam Peripheral Vascular R Calf Circumference (cm): 43.8 cm L Calf Circumference (cm): 42.9 cm R Ankle Measurement (cm): 31.7 cm L Ankle Measurement (cm): 31.2 cm Hemosiderin Staining Present: Left, Right, Yes Hair growth to LE present: Yes Lower Extremity Circulation Pulses Palpation - LEFT dorsal pedis pulse: +1 Pulses Palpation - LEFT posterior tibial pulse: +1 Pulses Palpation - RIGHT dorsal pedis pulse: +1 Pulses Palpation - RIGHT posterior tibial pulse: +1 Pulses Doppler - LEFT dorsal pedis pulse: biphasic Pulses Doppler - LEFT posterior tibial pulse: biphasic Pulses Doppler - RIGHT dorsal pedis pulse: biphasic Pulses Doppler - RIGHT posterior tibial pulse: biphasic Pulses Palpation - LEFT dorsal pedis pulse: +1 Pulses Palpation - LEFT posterior tibial pulse: +1 Pulses Palpation - RIGHT dorsal pedis pulse: +1 Pulses Palpation - RIGHT posterior tibial pulse: +1 Pulses Doppler - LEFT dorsal pedis pulse: biphasic Pulses Doppler - LEFT posterior tibial pulse: biphasic Pulses Doppler - R (more content not included)... [facility] 07-07-2024 [facility] Office Visit ([facility] [facility] ) -- KRYSTEN CROOK V ([id number]) 1985 M Date Time Provider Department 07/07/24 2:20 PM TANMAY DO [facility] During your visit today, we recorded the following information about you: Temperature Pulse Blood pressure Weight 98.9 degrees 80/minute 128/92 127.5 kg Tanmay Do, IRON WORKER APPRENTICE.FINISHED CLOTH EXAMINER 07/07/2024 3:14 PM Signed Krysten Crook is a 39 year old male here today acutely because of having: Wound Check (Patient was in to see Kenny Do on 06/29/2024. He is present to have the wounds checked. He states the wounds are improving. He is needing a note to excuse him from work because he isn't able to wear boots. ) Patient was seen at walk-in on 06/29/2020 for her wound infections from vasculitis. He was started on clindamycin 300 mg. He is back in the office today to have his wounds checked and needing a slip for work due to being unable to wear his boots. Reports the sores and scabs on his bilateral lower legs are getting better. They are starting to heal now that he is leaving them open and not covering them. Feels the redness around the wounds is now gone and there is no drainage. He does see the wound clinic in 6 days. Denies any fever, chills, body aches, nausea, diarrhea, headaches. Wound Check Pertinent negatives include no chest pain, chills, coughing, fatigue, fever, nausea or vomiting. Review of Systems Constitutional: Negative for chills, fatigue and fever. Respiratory: Negative for cough, chest tightness, shortness of breath and wheezing. Cardiovascular: Negative for chest pain and palpitations. Gastrointestinal: Negative for diarrhea, nausea and vomiting. Skin: Positive for wound (bilateral lower legs). BP 125/91 (BP Site: Left Arm, BP Position: Sitting, BP Cuff Size: Regular Adult) Pulse 80 Temp 37.2 ?C (98.9 ?F) (Oral) Wt 127.5 kg (281 lb) SpO2 97% There is no height on file. ALLERGIES Allergen Reactions Keflex [Cephalexin] Hives Physical Exam Constitutional: Appearance: Normal appearance. Cardiovascular: Rate and Rhythm: Normal rate and regular rhythm. Heart sounds: Normal heart sounds. No murmur heard. Pulmonary: Effort: Pulmonary effort is normal. No respiratory distress. Breath sounds: Normal breath sounds. No wheezing. Skin: General: Skin is warm and dry. Findings: Lesion present. Comments: Patient has multiple skin lesions/wounds scattered all over the lower legs, that are in different stages of healing. They are scabbed and without any drainage. No signs of infection noted at this time. Neurological: Mental Status: He is alert and oriented to person, place, and time. ASSESSMENT/PLAN: 1. Vasculitis (HCC) - ICD9: 447.6, ICD10: I77.6 - Keep appointment with wound clinic. Tanmay Do CNP Follow Up: Return if symptoms worsen or fail to improve. Prescription instructions reviewed with patient as applicable. Patient advised if symptoms do not improve or if symptoms worsen sooner, to contact their primary care physician. Potential red flag symptoms discussed with the patient. Reviewed appropriate action plan to take if red flag symptoms occur. Patient agreeable to treatment plan. Voice recognition software utilized. Minor grammatical and/or spelling errors may exist. Portions of this note have been entered by ancillary staff. I have reviewed and when necessary edited, so that they are an adequate record of my encounter with this patient. Allergies As of Date: 07/07/2024 Noted Allergy Reaction KEFLEX (CEPHALEXIN) 06/24/2024 4 - Hives Date Reviewed: 07/07/2024 Reviewed by: Irma Leong MA - Fully Assessed Reason for Visit: Wound Check [133] Cmt: Patient was in to see Kenny Do on 06/29/2024. He is present to have the wounds checked. He states the wounds are improving. He is needing a note to excuse him from work because he isn't able to wear boots. Primary Visit Diagnosis:Vasculitis (HCC) [I77.6] Order(s):lisinopril (ZESTRIL) 10 mg tabletTake 1 tablet by mouth every afternoon.Disp: 90 tabletRfl: 1 Prescriptions as of 07/07/2024 - atorvastatin (LIPITOR) 20 mg tablet Take 20 mg by mouth once daily. - lisinopril (ZESTRIL) 10 mg tablet Take 1 tablet by mouth every afternoon. - clindamycin (CLEOCIN) 300 mg capsule Take 1 capsule by mouth two times a day for 10 days. Problem List As Of Date: 07/07/2024 (None) Prescriptions ordered this encounter Disp Refills Start End LISINOPRIL 10 MG TABLET 90 t* 1 07/07/2024 10/05/2024 Route: ORAL Sig: Take 1 tablet by mouth every afternoon. Medications Discontinued During This Encounter Prescriptions - lisinopril (ZESTRIL) 10 mg tablet (Discontinued) Take 1 tablet by mouth every afternoon. Disposition: Return if symptoms worsen or fail to improve. Follow-up and Disposition History for Encounter Date Provider Department Center 07/07/2024 [id number], (more content not included)... 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 He has been seeing a vasculitis DrYoel And has been treating him with clindamycin 300 mg twice a day for the 2 weeks. His last appointment was 06/09/2024. He has finished the 2-week span and is in the office today concerned this lesions/wounds are getting infected again. He does not have an appointment to see his new primary doctor until the 16th of next month. States due to the scabbing on the lower legs, he is unable to put on his boots for work. He has been off for several months. Denies any fever, chills, body aches, nausea, vomiting, diarrhea, drainage. Has followed care of his legs as what his doctor prescribed. Only needed medication to cover a little longer for the possible infection. Since the patient has done so well on the clindamycin, I will continue on for another 10 days. Review of Systems Constitutional: Negative for chills, fatigue and fever. Respiratory: Negative for cough, chest tightness, shortness of breath and wheezing. Cardiovascular: Negative for chest pain and palpitations. Gastrointestinal: Negative for diarrhea, nausea and vomiting. Skin: Positive for wound (bilateral lower legs). BP 122/88 (BP Site: Left Arm, BP Position: Sitting, BP Cuff Size: Regular Adult) Pulse 89 Temp 36.8 ?C (98.2 ?F) (Oral) Resp 18 SpO2 96% No weight on file for this encounter. ALLERGIES Allergen Reactions Keflex [Cephalexin] Hives Physical Exam Constitutional: Appearance: Normal appearance. Cardiovascular: Rate and Rhythm: Normal rate and regular rhythm. Heart sounds: Normal heart sounds. No murmur heard. Pulmonary: Effort: Pulmonary effort is normal. No respiratory distress. Breath sounds: Normal breath sounds. No wheezing. Skin: General: Skin is warm and dry. Findings: Lesion present. Comments: Patient has multiple skin lesions/wounds scattered all over the lower legs, that are in different stages of healing. Some have scabbed over some of the scabs of her already started to come off and others have already healed closed. Areas around the lesions are starting to turn red and unable to determine if it was truly warm due to all the scabbing. Legs are slightly swollen, but this has been normal for the patient. Neurological: Mental Status: He is alert and oriented to person, place, and time. ASSESSMENT/PLAN: 1. Wound infection - ICD9: 958.3, ICD10: T14.8XXA, L08.9 - Begin treatment with Clindamycin - No lymphangetic streaking, this was defined for patient to watch for and to seek medical care immediately if appears - CLINDAMYCIN HCL 300 MG CAPSULE Tanmay Do, FINISHED CLOTH EXAMINER Follow Up: Return if symptoms worsen or fail to improve. Prescription instructions reviewed with patient as applicable. Patient advised if symptoms do not improve or if symptoms worsen sooner, to contact their primary care physician. Potential red flag symptoms discussed with the patient. Reviewed appropriate action plan to take if red flag symptoms occur. Patient agreeable to treatment plan. Voice recognition software utilized. Minor grammatical and/or spelling errors may exist. Portions of this note have been entered by ancillary staff. I have reviewed and when necessary edited, so that they are an adequate record of my encounter with this patient. Allergies As of Date: 06/29/2024 Noted Allergy Reaction KEFLEX (CEPHALEXIN) 06/24/2024 4 - Hives Date Reviewed: 06/29/2024 Reviewed by: Gina Anand - Fully Assessed Reason for Visit: Sores on legs [Other] Primary Visit Diagnosis:Wound infection [T14.8XXA, L08.9] Order(s):clindamycin (CLEOCIN) 300 mg capsuleTake 1 capsule by mouth two times a day for 10 days.Disp: 20 capsuleRfl: 0 Prescriptions as of 06/29/2024 - clindamycin (CLEOCIN) 300 mg capsule Take 1 capsule by mouth two times a day for 10 days. Problem List As Of Date: 06/29/2024 (None) Prescriptions ordered this encounter Disp Refills Start End CLINDAMYCIN HCL 300 MG CAPSULE 20 c* 0 06/29/2024 07/09/2024 Route: ORAL Sig: Take 1 capsule by mouth two times a day for 10 days. Disposition: Return if symptoms worsen or fail to improve. Follow-up and Disposition History for Encounter Date Provider Department Center 06/29/2024 [id number] DO [facility]Dora Letter Text Encounter Status:Closed by TANMAY DO on 06/29/[address] [facility] Basic metabolic 2000 panelon 06-24-2024 Anion gap [Moles/Vol] 10 mmol/L Normal 8-15 [facility] Comment on above: Order Comment: Speci men Type: BLOOD SPECIMENOrdering Facility: [facility] Address: [address] [place] [address] Performed By: #### 3 3762-6, , 39903-0 ####[facility] [id number] [place] [address] [place] Calcium [Mass/Vol] 9.2 mg/dL Normal 8.5-10.2 [facility] Comment on above: Order Comment: Speci men Type: BLOOD SPECIMENOrdering Facility: [facility] Address: [address] [place] [address] Performed By: #### 3 3762-6, , 60617-5 ####[facility] [id number] [place] [address] [place] Chloride [Moles/Vol] 97 mmol/L Low 98-107 [facility] Comment on above: Order Comment: Speci men Type: BLOOD SPECIMENOrdering Facility: [facility] Address: [address] [place] [address] Performed By: #### 3 3762-6, , 00198-9 ####[facility] LABIA [id number] [place] [address] [place] CO2 [Moles/Vol] 30 mmol/L Normal 22-30 [facility] Comment on above: Order Comment: Speci men Type: BLOOD SPECIMENOrdering Facility: [facility] Address: [address] [place] [address] Performed By: #### 3 3762-6, 59911-5, 84658-0 ####[facility] LABIA [id number] [place] [address] [place] Creatinine [Mass/Vol] 1.13 mg/dL Normal 0.73-1.22 [facility] Comment on above: Order Comment: Speci men Type: BLOOD SPECIMENOrdering Facility: [facility] Address: [address] [place] [address] Performed By: #### 3 3762-6, , 21872-7 ####[facility] [id number] [address] STATES OF [facility] Creatinine and Glomerular filtration rate.predicted panel (S/P/Bld) 85 mL/min/1.73m??? Normal >=60 [facility] Comment on above: Order Comment: Speci men Type: BLOOD SPECIMENOrdering Facility: [facility] Address: [address] [place] [address] Result Comment: Ana mated Glomerular Filtration Rate (eGFR) is calculated using the 2020 CKD-EPI creatinine equation. This equation utilizes serum creatinine, sex, and age as parameters. The creatinine assay has traceable calibration to isotope dilution-mass spectrometry. Refer to KDIGO guidelines for clinical interpretation. In patients with unstable renal function, e.g. those with acute kidney injury, the eGFR may not accurately reflect actual GFR. Performed By: #### 3 3762-6, , 75439-8 ####[facility] LABIA [id number] [place] [address] [place] Glucose [Mass/Vol] 90 mg/dL Normal 74-99 [facility] Comment on above: Order Comment: Speci men Type: BLOOD SPECIMENOrdering Facility: [facility] Address: [address] [place] [address] Result Comment: The [place] [employer] (ADA) provides guidance for cutoff values for fasting glucose and random glucose. The ADA defines fasting as no caloric intake for at least 8 hours. Fasting plasma glucose results between 100 to 125 mg/dL indicate increased risk for diabetes (prediabetes). Fasting plasma glucose results greater than or equal to 126 mg/dL meet the criteria for diagnosis of diabetes. In the absence of unequivocal hyperglycemia, results should be confirmed by repeat testing. In a patient with classic symptoms of hyperglycemia or hyperglycemic crisis, random plasma glucose results greater than or equal to 200 mg/dL meet the criteria for diagnosis of diabetes. Reference: Standards of Medical Care in Diabetes 2016, [place] [employer]. Diabetes Care. 2016.39(Suppl 1). Performed By: #### 3 3762-6, , ####[facility] [id number] [place] [address] [place] Potassium [Moles/Vol] 3.6 mmol/L Low 3.7-5.1 [facility] Comment on above: Order Comment: Speci men Type: BLOOD SPECIMENOrdering Facility: [facility] Address: [address] [place] [address] Performed By: #### 3 3762-6, , ####[facility] [id number] [place] [address] [place] Sodium [Moles/Vol] 137 mmol/L Normal 136-144 [facility] Comment on above: Order Comment: Speci men Type: BLOOD SPECIMENOrdering Facility: [facility] Address: [address] [place] [id number] Performed By: #### 3 3762-6, , 96676-1 ####[facility] LABIA [id number] [place] [address] [place] Urea nitrogen [Mass/Vol] 23 mg/dL Normal 9-24 [facility] Comment on above: Order Comment: Speci men Type: BLOOD SPECIMENOrdering Facility: [facility] Address: [address] [place] [address] Performed By: #### 3 3762-6, , 54489-3 ####[facility] LABCLIA [id number] [place] [address] [place] CBC W Auto Differential pane l (Bld)on 06-24-2024 Basophils (Bld) [#/Vol] 10*3/uL Normal <0.11 [facility] Comment on above: Order Comment: Speci men Type: BLOOD SPECIMENOrdering Facility: [facility] Address: [address] [place] [address] Performed By: #### 5 7021-8 ####[facility] LABIA [id number] [place] [address] [place] Basophils/100 WBC (Bld) 0.1 % Normal [facility] Comment on above: Order Comment: Speci men Type: BLOOD SPECIMENOrdering Facility: [facility] Address: [address] [place] [address] Performed By: #### 5 7021-8 ####[facility] LABIA [id number] [place] [address] [place] Differential cell count method Nom (Bld) Auto Normal [facility] Comment on above: Order Comment: Speci men Type: BLOOD SPECIMENOrdering Facility: [facility] Address: [address] [place] [address] Performed By: #### 5 7021-8 ####[facility] LABIA [id number] [place] [address] [place] Eosinophils (Bld) [#/Vol] 0.09 10*3/uL Normal <0.46 [facility] Comment on above: Order Comment: Speci men Type: BLOOD SPECIMENOrdering Facility: [facility] Address: [address] [place] [address] Performed By: #### 5 7021-8 ####[facility] LABIA [id number] [place] [address] [place] Eosinophils/100 WBC (Bld) 0.6 % Normal [facility] Comment on above: Order Comment: Speci men Type: BLOOD SPECIMENOrdering Facility: [facility] Address: [address] [place] [address] Performed By: #### 5 7021-8 ####[facility] LABIA [id number] [place] [address] [place] Erythrocyte distribution width (RBC) [Ratio] 13.3 % Normal 11.5-15.0 [facility] Comment on above: Order Comment: Speci men Type: BLOOD SPECIMENOrdering Facility: [facility] Address: [address] [place] [address] Performed By: #### 5 7021-8 ####[facility] [id number] [place] [address] [place] Hematocrit (Bld) [Volume fraction] 44.0 % Normal 39.0-51.0 [facility] Comment on above: Order Comment: Speci men Type: BLOOD SPECIMENOrdering Facility: [facility] Address: [address] [place] [address] Performed By: #### 5 7021-8 ####[facility] [id number] [place] [address] [place] Hemoglobin (Bld) [Mass/Vol] 14.2 g/dL Normal 13.0-17.0 [facility] Comment on above: Order Comment: Speci men Type: BLOOD SPECIMENOrdering Facility: [facility] Address: [address] [place] [address] Performed By: #### 5 7021-8 ####[facility] LABIA [id number] [place] [address] [place] Immature granulocytes (Bld) [#/Vol] 0.07 10*3/uL Normal <0.10 [facility] Comment on above: Order Comment: Speci men Type: BLOOD SPECIMENOrdering Facility: [facility] Address: [address] [place] [address] Performed By: #### 5 7021-8 ####[facility] [id number] [place] [address] [place] Immature granulocytes/100 WBC (Bld) 0.5 % Normal [facility] Comment on above: Order Comment: Speci men Type: BLOOD SPECIMENOrdering Facility: [facility] Address: [address] [place] [address] Performed By: #### 5 7021-8 ####[facility] [id number] [place] [address] [place] Lymphocytes (Bld) [#/Vol] 3.86 10*3/uL Normal 1.00-4.00 [facility] Comment on above: Order Comment: Speci men Type: BLOOD SPECIMENOrdering Facility: [facility] Address: [address] [place] [address] Performed By: #### 5 7021-8 ####[facility] [id number] [address] Lymphocytes/100 WBC (Bld) 26.0 % Normal [facility] Comment on above: Order Comment: Speci men Type: BLOOD SPECIMENOrdering Facility: [facility] Address: [address] [place] [address] Performed By: #### 5 7021-8 ####[facility] [id number] [place] [address] [place] MCH (RBC) [Entitic mass] 28.8 pg Normal 26.0-34.0 [facility] Comment on above: Order Comment: Speci men Type: BLOOD SPECIMENOrdering Facility: [facility] Address: [address] [place] [address] Performed By: #### 5 7021-8 ####[facility] [id number] [address] [place] MCHC (RBC) [Mass/Vol] 32.3 g/dL Normal 30.5-36.0 [facility] Comment on above: Order Comment: Speci men Type: BLOOD SPECIMENOrdering Facility: [facility] Address: [address] [place] [address] Performed By: #### 5 7021-8 ####[facility] [id number] [place] [address] [place] MCV (RBC) [Entitic vol] 89.2 fL Normal 80.0-100.0 [facility] Comment on above: Order Comment: Speci men Type: BLOOD SPECIMENOrdering Facility: [facility] Address: [address] [place] [address] Performed By: #### 5 7021-8 ####[facility] LABIA [id number] [place] [address] [place] Monocytes (Bld) [#/Vol] 0.87 10*3/uL High <0.87 [facility] Comment on above: Order Comment: Speci men Type: BLOOD SPECIMENOrdering Facility: [facility] Address: [address] [place] [address] Performed By: #### 5 7021-8 ####[facility] [id number] [place] [address] [place] Monocytes/100 WBC (Bld) 5.9 % Normal [facility] Comment on above: Order Comment: Speci men Type: BLOOD SPECIMENOrdering Facility: [facility] Address: [address] [place] [address] Performed By: #### 5 7021-8 ####[facility] LABIA [id number] [place] [address] [place] Neutrophils (Bld) [#/Vol] 9.96 10*3/uL High 1.45-7.50 [facility] Comment on above: Order Comment: Speci men Type: BLOOD SPECIMENOrdering Facility: [facility] Address: [address] [place] [address] Performed By: #### 5 7021-8 ####[facility] LABIA [id number] [place] [address] [place] Neutrophils/100 WBC (Bld) 66.9 % Normal [facility] Comment on above: Order Comment: Speci men Type: BLOOD SPECIMENOrdering Facility: [facility] Address: [address] [place] [address] Performed By: #### 5 7021-8 ####[facility] LABCLIA [id number] [address] [place] Nucleated RBC (Bld) [#/Vol] 10*3/uL Normal <0.01 [facility] Comment on above: Order Comment: Speci men Type: BLOOD SPECIMENOrdering Facility: [facility] Address: [address] [place] [address] Performed By: #### 5 7021-8 ####[facility] LABIA [id number] [place] [address] [place] Nucleated RBC/100 WBC (Bld) [Ratio] 0.0 /[address] [facility] Comment on above: Order Comment: Speci men Type: BLOOD SPECIMENOrdering Facility: [facility] Address: [address] [place] [address] Performed By: #### 5 7021-8 ####[facility] [id number] [place] [address] [place] Platelet mean volume (Bld) [Entitic vol] 8.6 fL Low 9.0-12.7 [facility] Comment on above: Order Comment: Speci men Type: BLOOD SPECIMENOrdering Facility: [facility] Address: [address] [place] [address] Performed By: #### 5 7021-8 ####[facility] [id number] [place] [address] [place] Platelets (Bld) [#/Vol] 305 10*3/uL Normal 150-400 [facility] Comment on above: Order Comment: Speci men Type: BLOOD SPECIMENOrdering Facility: [facility] Address: [address] [place] [address] Performed By: #### 5 7021-8 ####[facility] [id number] [place] [address] [place] RBC (Bld) [#/Vol] 4.93 10*6/uL Normal 4.20-6.00 [facility] Comment on above: Order Comment: Speci men Type: BLOOD SPECIMENOrdering Facility: [facility] Address: [address] [place] [address] Performed By: #### 5 7021-8 ####[facility] LABCLIA [id number] [place] [address] [facility] WBC (Bld) [#/Vol] 14.87 10*3/uL High 3.70-11.00 [facility] Comment on above: Order Comment: Speci men Type: BLOOD SPECIMENOrdering Facility: [facility] Address: [address] [place] [address] Performed By: #### 5 7021-8 ####[facility] LABCLIA [id number] [place] [address] [facility] ED NOTEon 06-24-2024 ED NOTE HNO ID: [id number] Author: NELLIE MUÑOZ HUC Service: Emergency Medicine Author Type: ? Type: ED Notes Filed: 06/25/2024 12:49 Note Text: PT RETURNED PHONE CALL WITH A QUESTION WANTING TO KNOW IF THERE WAS A LIST OF PCPS THAT HAD AVAILABILITY. TOLD PT I DID NOT HAVE ACCESS TO ANY INFORMATION LIKE THAT AND HE NEEDED TO CALL AROUND TOMORROW TO GET A PCP [facility] ED NOTE HNO ID: [id number] Author: ESPERANZA WALKER RN Service: Emergency Medicine Author Type: Registered Nurse Type: ED Notes Filed: 06/24/2024 19:02 Note Text: Report to brianna jacobs rn [facility] ED PROV NOTEon 06-24-2024 ED PROV NOTE HNO ID: [id number] Author: TAMRA DAVILA MD Service: Emergency Medicine Author Type: Physician Type: ED Provider Notes Filed: 06/24/2024 23:31 Note Text: ED Provider Note Patient Name: Krysten Crook : 1985 SERVICE DATE: 06/24/24 History Patient presents with: Edema HPI Patient presents with concern for bilateral lower extremity swelling. 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 He has since been on prednisone, ciprofloxacin. He initially followed up with his primary care provider and states that he was told his lab work looked good. He is having lower extremity swelling over the past week and a half. He does take 20 mg of Lasix daily but feels as though this is not making him urinate is much as he would expect to. Denies any abdominal pain, nausea or vomiting, diarrhea or constipation. Denies any chest pain or difficulty breathing. He states he feels as though his rash on his lower extremities is improving with steroids. He states that it is still slightly painful and he is having difficulty elevating his legs or wearing compression socks. No past medical history on file. No past surgical history on file. No family history on file. Social History Tobacco Use Smoking status: Not on file Smokeless tobacco: Not on file Substance and Sexual Activity Alcohol use: Not on file Drug use: Not on file Sexual activity: Not on file ALLERGIES Allergen Reactions Keflex [Cephalexin] Hives Review of Systems Constitutional: Negative for chills, fatigue and fever. HENT: Negative for congestion, hearing loss and sore throat. Eyes: Negative for pain, discharge and visual disturbance. Respiratory: Negative for cough, shortness of breath and wheezing. Cardiovascular: Positive for leg swelling. Negative for chest pain and palpitations. Gastrointestinal: Negative for abdominal pain, constipation, diarrhea, nausea and vomiting. Genitourinary: Negative for difficulty urinating, hematuria and urgency. Musculoskeletal: Negative for arthralgias, joint swelling and neck pain. Skin: Positive for rash. Negative for color change and wound. Neurological: Negative for dizziness, syncope and headaches. Psychiatric/Behavioral: Negative for confusion, self-injury and suicidal ideas. All other systems reviewed and are negative. Physical Exam Vitals [06/24/24 1742] BP Pulse Temp Temp src Resp SpO2 Weight Height 121/87 (!) 109 36.9 ?C (98.4 ?F) Oral 18 95 % 128.5 kg (283 lb 4.7 oz) -- Physical Exam Vitals reviewed. Constitutional: General: He is not in acute distress. HENT: Head: Normocephalic and atraumatic. Right Ear: External ear normal. Left Ear: External ear normal. Nose: Nose normal. Mouth/Throat: Mouth: Mucous membranes are moist. Pharynx: Oropharynx is clear. Eyes: Extraocular Movements: Extraocular movements intact. Conjunctiva/sclera: Conjunctivae normal. Pupils: Pupils are equal, round, and reactive to light. Cardiovascular: Rate and Rhythm: Normal rate and regular rhythm. Pulses: Normal pulses. Heart sounds: Normal heart sounds. Pulmonary: Effort: Pulmonary effort is normal. Breath sounds: Normal breath sounds. No wheezing, rhonchi or rales. Abdominal: General: Abdomen is flat. There is no distension. Palpations: Abdomen is soft. Tenderness: There is no abdominal tenderness. Musculoskeletal: General: Swelling (mild non-pitting edema around the ankles bilaterally, no pitting edema of the shins) present. No deformity. Normal range of motion. Cervical back: Normal range of motion. Skin: General: Skin is warm and dry. Capillary Refill: Capillary refill takes less than 2 seconds. Findings: Rash (Patient has lesions consistent wtih stated vasculitis present over bilateral calves and ankles. These appear scabbed over without any surrounding erythema or exudate. No purulence or crepitus appreciated.) present. Neurological: General: No focal deficit present. Mental Status: He is alert and oriented to person, place, and time. Psychiatric: Mood and Affect: Mood normal. Behavior: Behavior normal. Diagnostic Testing ED Labs Ordered and Reviewed - No data to display Procedures ED Course / Clinical Impression ED Course as of 06/24/248 Tamra Davila's Documentation Sat Jun 24, 2024 1832 WBC(!): 14.87 Mild leukocytosis although patient is on prednisone, suspect likely secondary to this, improved from prior hospitalization 1900 Creatinine: 1.13 Cr 0.9 on 06/09 1902 Hemoglobin/Blood,Ur(!): 2+ Previously had small amount of blood in urine Clinical Impressions as of 06/24/24 2328 Vasculitis limited to skin Bilateral lower extremity edema MDM / Disposition / Plan MDM Patient presents with bilateral lower extremity swelling since being on prednisone for vasculitis. Initial vital signs remarkable for mild tachycard (more content not included)... Normal [facility] Magnesium SerPl-mCncon 06-24 Magnesium [Mass/Vol] 2.2 mg/dL Normal 1.7-2.3 [facility] Comment on above: Order Comment: Speci men Type: BLOOD SPECIMENOrdering Facility: [facility] Address: [facility] [place] [id number] Performed By: #### 3 3762-6, 89266-9, 93432-9 ####[facility] LABCLIA [id number] [address] NT-proBNP [facility] 06-24 Natriuretic peptide.B prohormone N-Terminal [Mass/Vol] <36 Normal <125 [facility] Comment on above: Order Comment: Speci men Type: BLOOD SPECIMENOrdering Facility: [facility] Address: [address] [place] [address] Performed By: #### 3 3762-6, 06145-2, 83768-4 ####[facility] LABIA [id number] [address] Urinalysis complete panel (U )on 06-24-2024 Bilirubin Ql (U) Negative Normal Negative [facility] Comment on above: Order Comment: Speci men Type: URINE SPECIMENOrdering Facility: [facility] Address: [address] [place] [address] Performed By: #### 2 4356-8 ####[facility] [id number] [address] [place] Clarity (Unsp spec) Clear Normal Clear [facility] Comment on above: Order Comment: Speci men Type: URINE SPECIMENOrdering Facility: [facility] Address: [address] [place] [address] Performed By: #### 2 4356-8 ####[facility] LABIA [id number] [address] [place] Color (U) Yellow Normal Yellow [facility] Comment on above: Order Comment: Speci men Type: URINE SPECIMENOrdering Facility: [facility] Address: [address] [place] [address] Performed By: #### 2 4356-8 ####[facility] LABIA [id number] [address] Glucose Test strip (U) [Mass/Vol] Negative Normal Negative [facility] Comment on above: Order Comment: Speci men Type: URINE SPECIMENOrdering Facility: [facility] Address: [address] [place] [address] Performed By: #### 2 4356-8 ####[facility] LABCLIA [id number] [place] [address] [place] Hemoglobin Ql (U) 2+ Abnormal Negative [facility] Comment on above: Order Comment: Speci men Type: URINE SPECIMENOrdering Facility: [facility] Address: [address] [place] [address] Performed By: #### 2 4356-8 ####[facility] LABCLIA [id number] [place] [address] [place] Ketones Ql (U) Negative Normal Negative [facility] Comment on above: Order Comment: Speci men Type: URINE SPECIMENOrdering Facility: [facility] Address: [address] [place] [address] Performed By: #### 2 4356-8 ####[facility] LABIA [id number] [place] [address] [place] Leukocyte esterase Test strip Ql (U) Negative Normal Negative [facility] Comment on above: Order Comment: Speci men Type: URINE SPECIMENOrdering Facility: [facility] Address: [address] [place] [address] Performed By: #### 2 4356-8 ####[facility] LABCLIA [id number] [place] [address] [place] Nitrite Ql (U) Negative Normal Negative [facility] Comment on above: Order Comment: Speci men Type: URINE SPECIMENOrdering Facility: [facility] Address: [address] [place] [address] Performed By: #### 2 4356-8 ####[facility] LABCLIA [id number] [place] [address] [place] pH (U) 6.0 [pH] Normal 5.0-8.0 [facility] Comment on above: Order Comment: Speci men Type: URINE SPECIMENOrdering Facility: [facility] Address: [address] [place] [address] Performed By: #### 2 4356-8 ####[facility] LABCLIA [id number] [address] Protein (U) [Mass/Vol] Negative Normal Negative [facility] Comment on above: Order Comment: Speci men Type: URINE SPECIMENOrdering Facility: [facility] Address: [address] [place] [address] Performed By: #### 2 4356-8 ####[facility] LABIA [id number] [place] [address] [place] RBC LM.HPF (Urine sed) [#/Area] 3-5 /HPF Abnormal 0-3 /HPF [facility] Comment on above: Order Comment: Speci men Type: URINE SPECIMENOrdering Facility: [facility] Address: [address] [place] [address] Performed By: #### 2 4356-8 ####[facility] [id number] [address] [place] [facility] Specific gravity (U) [Rel density] 1.015 Normal 1.005-1.030 [facility] Comment on above: Order Comment: Speci men Type: URINE SPECIMENOrdering Facility: [facility] Address: [address] [place] [address] Performed By: #### 2 4356-8 ####[facility] LABIA [id number] [address] Urobilinogen Ql (U) 0.2 EU/dL Normal 0.2-1.0 EU/dL [facility] Comment on above: Order Comment: Speci men Type: URINE SPECIMENOrdering Facility: [facility] Address: [address] [place] [address] Performed By: #### 2 4356-8 ####[facility] LABIA [id number] [address] [place] WBC LM.HPF (Urine sed) [#/Area] 0-5 /HPF Normal 0-5 /HPF [facility] Comment on above: Order Comment: Speci men Type: URINE SPECIMENOrdering Facility: [facility] Address: [address] [place] [address] Performed By: #### 2 4356-8 ####[facility] LABCLIA [id number] [address] STATES OF [facility] XR CHEST 1V FRONTAL PORTon 0 06-24-2024 XR CHEST 1V FRONTAL PORT * * *Final Report* * * DATE OF EXAM: Jun 24 2024 6:45PM UDX [id number] - XR CHEST 1V FRONTAL PORT / PROCEDURE REASON: Pulmonary Edema * * * * Physician Interpretation * * * * EXAMINATION: CHEST RADIOGRAPH (PORTABLE SINGLE VIEW AP) Exam Date/Time: 06/24/2024 6:45 PM CLINICAL INFORMATION ( PROVIDED BY ORDERING CLINICIAN) : Pulmonary Edema Comparison: None available RESULT: See impression. IMPRESSION: Lines, tubes, and devices: None. Lungs and pleura: No confluent infiltrate. No large pleural effusion. No pneumothorax. Hypoventilation with basilar atelectasis. Cardiomediastinal silhouette: Within normal limits. Other: No acute bony abnormality. Ply Cutter: PSCB Transcribe Date/Time: Jun 24 2024 7:59P Dictated by : KRYSTEN COTTER MD This examination was interpreted and the report reviewed and electronically signed by: KRYSTEN COTTER MD on Jun 24 2024 7:59PM EST [id number] Normal [facility] C REACTIVE PROTEINon 024 CRP High sensitivity method [Mass/Vol] 9.01 mg/L NINF - 10.00 mg/L [facility] HEPATITIS BATTERY, ACUTEon 0 06-10-2024 Hep B Core Ab,Total (IgG+IgM) Negative Normal Negative [facility] Comment on above: Performed By: #### H EP1B #### [facility] (DEFAULT) [address] [address] Hep B Core IgM Ab Negative Normal Negative [facility] Comment on above: Performed By: #### H EP1B #### [facility] (DEFAULT) [address] [address] Hepatitis A IgM Ab Negative Normal Negative [facility] Comment on above: Performed By: #### H EP1B #### [facility] (DEFAULT) [address] [place] [address] Hepatitis B Surface Ag Negative Normal Negative [facility] Comment on above: Performed By: #### H EP1B #### [facility] (DEFAULT) [address] [place] [address] Hepatitis C Antibody Negative Normal Negative [facility] Comment on above: Performed By: #### H EP1B #### [facility] (DEFAULT) [address] [place] [address] IGAon 06-10-2024 IgA [Mass/Vol] 278 mg/dL 66 - 433 mg/dL [facility] Laboratory - Urinalysison Bacteria LM Ql (Urine sed) ABSENT ABSENT [facility] Epithelial cells.squamous LM Ql (Urine sed) 0-2/hpf 0-2/hpf, 3-5/hpf = 1+ [facility] RBC LM.HPF (Urine sed) [#/Area] 6-10 Abnormal [facility] WBC LM.HPF (Urine sed) [#/Area] 0 - 5 [facility] No Panel Informationon 06-10 [facility] Interpretation and review of laboratory results Abnormal [facility] Interpretation and review of laboratory results Normal [facility] SEDIMENTATION RATE, AUTOMATE Don 06-10-2024 ESR (Bld) [Velocity] 20 mm/h High NINF [facility] Interpretation and review of laboratory results Abnormal [facility] ESR Westergren 20 mm/hr High <15 [facility] Comment on above: Performed By: #### L [id number] #### [facility] (DEFAULT) [address] [place] [address] URINALYSIS REFLEX TO CULTURE PERFORMABLEon 06-10-2024 Appearance (U) Clear Clear [facility] Color (U) Yellow Yellow [facility] Glucose Test strip (U) [Mass/Vol] Negative Negative [facility] Ketones (U) [Mass/Vol] Negative Negative [facility] Leukocyte esterase Test strip Ql (U) Negative Negative [facility] Nitrite Ql (U) Negative Negative [facility] pH (U) 5.5 [pH] 5.0 - 7.0 [facility] Protein (U) [Mass/Vol] 30 mg/dL Abnormal Negative [facility] RBC (U) [#/Vol] Small Abnormal Negative [facility] Specific gravity (U) [Rel density] 1.025 1.001 - 1.035 [facility] Urobilinogen (U) [Mass/Vol] 0.2 E.U./dL 0.2 E.U/dL, 1.0 E.U/dL [facility] Bacteria ABSENT Normal ABSENT [facility] Comment on above: Order Comment: For i ndwelling catheters, specimen collection is acceptable on catheter day 1 and 2 only. ? Performed By: #### L [id number], [id number], [id number] #### [facility] (DEFAULT) [address] [address] Performed By: #### L [id number] #### [facility] (DEFAULT) [address] [place] [address] RBC Urine 6-10 Abnormal 0-2 [facility] Comment on above: Order Comment: For i ndwelling catheters, specimen collection is acceptable on catheter day 1 and 2 only. ? Performed By: #### L [id number], [id number], [id number] #### [facility] (DEFAULT) [address] [place] [address] Performed By: #### L [id number] #### [facility] (DEFAULT) [address] [place] [address] Squamous/Epithelial Cells 0-2/hpf Normal 0-2/hpf, 3-5/hpf = 1+ [facility] Comment on above: Order Comment: For i ndwelling catheters, specimen collection is acceptable on catheter day 1 and 2 only. ? Performed By: #### L [id number], [id number], [id number] #### [facility] (DEFAULT) [address] [place] [address] Performed By: #### L [id number] #### [facility] (DEFAULT) [address] [place] [address] WBC Urine 0 - 5 Normal 0 - 5 [facility] Comment on above: Order Comment: For i ndwelling catheters, specimen collection is acceptable on catheter day 1 and 2 only. ? Performed By: #### L [id number], [id number] #### [facility] (DEFAULT) [address] [place] [address] Performed By: #### L [id number] #### [facility] (DEFAULT) [address] [place] [address] URINE DIPSTICK; REFLEX MICRO SCOPY; REFLEX CULTURE PERFORMABLEon 06-10-2024 Appearance (U) Clear Clear [facility] Color (U) Yellow Yellow [facility] Glucose Test strip (U) [Mass/Vol] Negative Negative [facility] Interpretation and review of laboratory results Abnormal [facility] Ketones (U) [Mass/Vol] Negative Negative [facility] Leukocyte esterase Test strip Ql (U) Negative Negative [facility] Nitrite Ql (U) Negative Negative [facility] pH (U) 5.5 [pH] 5.0 - 7.0 [facility] Protein (U) [Mass/Vol] 30 mg/dL Abnormal Negative [facility] RBC (U) [#/Vol] Small Abnormal Negative [facility] Specific gravity (U) [Rel density] 1.025 1.001 - 1.035 [facility] Urobilinogen (U) [Mass/Vol] 0.2 E.U./dL 0.2 E.U/dL, 1.0 E.U/dL [facility] Appearance (U) Clear Normal Clear [facility] Comment on above: Performed By: #### L [id number], [id number] #### [facility] (DEFAULT) [address] [place] [address] Order Comment: For i ndwelling catheters, specimen collection is acceptable on catheter day 1 and 2 only. ? Blood Urine Small Abnormal Negative [facility] Comment on above: Performed By: #### L [id number], [id number], [id number] #### [facility] (DEFAULT) [address] [place] [address] Order Comment: For i ndwelling catheters, specimen collection is acceptable on catheter day 1 and 2 only. ? Color (U) Yellow Normal Yellow [facility] Comment on above: Performed By: #### L [id number], [id number] #### [facility] (DEFAULT) [address] [place] [address] Order Comment: For i ndwelling catheters, specimen collection is acceptable on catheter day 1 and 2 only. ? Glucose Ql (U) Negative Normal Negative [facility] Comment on above: Performed By: #### L [id number], [id number], [id number] #### [facility] (DEFAULT) [address] [place] [address] Order Comment: For i ndwelling catheters, specimen collection is acceptable on catheter day 1 and 2 only. ? Ketones Ql (U) Negative Normal Negative [facility] Comment on above: Performed By: #### L [id number], [id number] #### [facility] (DEFAULT) [address] [place] [address] Order Comment: For i ndwelling catheters, specimen collection is acceptable on catheter day 1 and 2 only. ? Leukocyte esterase Test strip Ql (U) Negative Normal Negative [facility] Comment on above: Performed By: #### L [id number], [id number], [id number] #### [facility] (DEFAULT) [address] [place] [address] 67309 Order Comment: For i ndwelling catheters, specimen collection is acceptable on catheter day 1 and 2 only. ? Nitrites Urine Negative Normal Negative [facility] Comment on above: Performed By: #### L [id number], [id number], [id number] #### [facility] (DEFAULT) [address] [place] [address] 41785 Order Comment: For i ndwelling catheters, specimen collection is acceptable on catheter day 1 and 2 only. ? pH (U) 5.5 [pH] Normal 5.0-7.0 [facility] Comment on above: Performed By: #### L [id number], [id number] #### [facility] (DEFAULT) [address] [place] [address] 98791 Order Comment: For i ndwelling catheters, specimen collection is acceptable on catheter day 1 and 2 only. ? Protein Urine 30 mg/dL Abnormal Negative [facility] Comment on above: Performed By: #### L [id number] PONCE, [id number] #### [facility] (DEFAULT) [address] [place] [address] 96059 Order Comment: For i ndwelling catheters, specimen collection is acceptable on catheter day 1 and 2 only. ? Specific [place] Urine 1.025 Normal 1.001-1.035 [facility] Comment on above: Performed By: #### L [id number] PONCE, [id number] #### [facility] (DEFAULT) [address] [place] [address] 26312 Order Comment: For i ndwelling catheters, specimen collection is acceptable on catheter day 1 and 2 only. ? Urobilinogen Urine 0.2 E.U./dL Normal 0.2 E.U/d L, 1.0 E.U/dL [facility] Comment on above: Performed By: #### L [id number], [id number], [id number] #### [facility] (DEFAULT) [address] [place] [address] 60590 Order Comment: For i ndwelling catheters, specimen collection is acceptable on catheter day 1 and 2 only. ? ALTON MULTIPLEX SCRN WITH REFL EXon 06-09-2024 ALTON Screen, Multiplex Negative Normal Negative [facility] Comment on above: Result Comment: This test includes the following antibodies: Centromere, Chromatin, DsDNA, Jo1, Ribosomal P, UTILITY SYSTEM REPAIRER, ScL70, Sm/UTILITY SYSTEM REPAIRER, Jorge, SSA and SSB. A negative screen result means each antibody listed is negative. If positive, the individual antibody results will be reflexed. Performed By: #### A NASR, ANGELA, ANCA, CRP, IGA #### [facility] (DEFAULT) [address] [place] [address] 28410 ALTON SCREEN IFAon 06-09-2024 Antinuclear Antibody, IFA Negative Normal Negative [facility] Comment on above: Performed By: #### A NASR, ANGELA, ANCA, CRP, IGA #### [facility] (DEFAULT) [address] [place] [address] 86723 ANTI NEUTROPHIL CYTOPLASMIC ANTIBODYon 06-09-2024 Neutrophil Cytoplasmic Antibody Negative Normal Negative [facility] Comment on above: Performed By: #### A NASR, ANGELA, ANCA, CRP, IGA #### [facility] (DEFAULT) [address] [place] [address] 36088 C REACTIVE PROTEINon 024 CRP [Mass/Vol] 9.01 mg/L Normal <10.00 [facility] Comment on above: Performed By: #### A NASR, ANGELA, ANCA, CRP, IGA #### [facility] (DEFAULT) [address] [place] [address] 09505 CBC AND ELECTRONIC DIFFon Basophils (Bld) [#/Vol] K/uL 0.00 - 0.09 K/uL [facility] Basophils/100 WBC (Bld) 0.2 % [facility] Differential cell count method Nom (Bld) Electronic Differential [facility] Eosinophils (Bld) [#/Vol] 0.05 10*3/uL 0.00 - 0.48 K/uL [facility] Eosinophils/100 WBC (Bld) 0.3 % [facility] Erythrocyte distribution width (RBC) [Ratio] 13.2 % 10.9 - 14.3 % [facility] Hematocrit (Bld) [Volume fraction] 42.1 % 39.6 - 48.8 % [facility] Hemoglobin (Bld) [Mass/Vol] 13.8 g/dL 13.4 - 16.8 g/dL [facility] Immature granulocytes (Bld) [#/Vol] 0.07 10*3/uL NINF - 0.07 K/uL [facility] Immature granulocytes/100 WBC (Bld) 0.4 % [facility] Interpretation and review of laboratory results Abnormal [facility] Lymphocytes (Bld) [#/Vol] 2.92 10*3/uL 0.83 - 3.57 K/uL [facility] Lymphocytes/100 WBC (Bld) 17.0 % [facility] MCH (RBC) [Entitic mass] 28.6 pg 26.1 - 33.3 pg [facility] MCHC (RBC) [Mass/Vol] 32.8 g/dL 31.9 - 36.5 g/dL [facility] MCV (RBC) [Entitic vol] 87.2 fL 79.0 - 94.5 fL [facility] Monocytes (Bld) [#/Vol] 1.01 10*3/uL High 0.24 - 0.93 K/uL [facility] Monocytes/100 WBC (Bld) 5.9 % [facility] Neutrophils (Bld) [#/Vol] 13.14 10*3/uL High 1.57 - 6.19 K/uL [facility] Nucleated RBC/100 WBC (Bld) [Ratio] 0.0 % [facility] Platelet mean volume (Bld) [Entitic vol] 8.8 fL 8.7 - 12.3 fL [facility] Platelets (Bld) [#/Vol] 351 10*3/uL High 146 - 337 K/uL [facility] RBC (Bld) [#/Vol] 4.83 10*6/uL [facility] Segmented neutrophils/100 WBC (Bld) 76.2 % [facility] WBC (Bld) [#/Vol] 17.22 10*3/uL High 3.73 - 10 .10 K/uL [facility] Abs Baso Auto < Normal 0.00-0.09 [facility] Comment on above: Performed By: #### L [id number] #### [facility] (DEFAULT) [address] [place] [address] 12132 Basophils/100 WBC (Bld) 0.2 % Normal [facility] Comment on above: Performed By: #### L [id number] #### [facility] (DEFAULT) [address] [place] [address] 90779 DIFF STATUS Electronic Differential Normal [facility] Comment on above: Performed By: #### L [id number] #### [facility] (DEFAULT) [address] [place] [address] 20064 Eosinophils (Bld) [#/Vol] 0.05 10*3/uL Normal 0.00-0.48 [facility] Comment on above: Performed By: #### L [id number] #### [facility] (DEFAULT) [address] [address] Eosinophils/100 WBC (Bld) 0.3 % Normal [facility] Comment on above: Performed By: #### L [id number] #### [facility] (DEFAULT) [address] [address] Hematocrit (Bld) [Volume fraction] 42.1 % Normal 39.6-48.8 [facility] Comment on above: Performed By: #### L [id number] #### [facility] (DEFAULT) [address] [address] Hemoglobin (Bld) [Mass/Vol] 13.8 g/dL Normal 13.4-16.8 [facility] Comment on above: Performed By: #### L [id number] #### [facility] (DEFAULT) [address] [address] Immature Grans % 0.4 % Normal [facility] Comment on above: Performed By: #### L [id number] #### [facility] (DEFAULT) [address] [address] Immature Grans Absolute 0.07 K/uL Normal <=0.07 [facility] Comment on above: Performed By: #### L [id number] #### [facility] (DEFAULT) [address] [address] Lymphocytes (Bld) [#/Vol] 2.92 10*3/uL Normal 0.83-3.57 [facility] Comment on above: Performed By: #### L [id number] #### [facility] (DEFAULT) [address] [address] Lymphocytes/100 WBC (Bld) 17.0 % Normal [facility] Comment on above: Performed By: #### L [id number] #### [facility] (DEFAULT) [address] [address] MCV (RBC) [Entitic vol] 87.2 fL Normal 79.0-94.5 [facility] Comment on above: Performed By: #### L [id number] #### [facility] (DEFAULT) [address] [address] Mean Cell Hgb 28.6 pg Normal 26.1-33.3 [facility] Comment on above: Performed By: #### L [id number] #### [facility] (DEFAULT) [address] [address] Mean Cell Hgb Conc 32.8 g/dL Normal 31.9-36.5 [facility] Comment on above: Performed By: #### L [id number] #### [facility] (DEFAULT) [address] [address] Monocytes (Bld) [#/Vol] 1.01 10*3/uL High 0.24-0.93 [facility] Comment on above: Performed By: #### L [id number] #### [facility] (DEFAULT) [address] [address] Monocytes/100 WBC (Bld) 5.9 % Normal [facility] Comment on above: Performed By: #### L [id number] #### [facility] (DEFAULT) [address] [address] Nucleated RBC 0.0 /100 WBC Normal <=0.2 [facility] Comment on above: Performed By: #### L [id number] #### [facility] (DEFAULT) [address] [address] Platelet mean volume (Bld) [Entitic vol] 8.8 fL Normal 8.7-12.3 [facility] Comment on above: Performed By: #### L [id number] #### [facility] (DEFAULT) [address] [address] Platelets (Bld) [#/Vol] 351 10*3/uL High 146-337 [facility] Comment on above: Performed By: #### L [id number] #### [facility] (DEFAULT) [address] [address] RBC (Bld) [#/Vol] 4.83 10*6/uL Normal 4.38-5.83 [facility] Comment on above: Performed By: #### L [id number] #### [facility] (DEFAULT) [address] [address] RBC Distribution 13.2 % Normal 10.9-14.3 [facility] Comment on above: Performed By: #### L [id number] #### [facility] (DEFAULT) [address] [address] Segs + Bands Auto 76.2 % Normal [facility] Comment on above: Performed By: #### L [id number] #### [facility] (DEFAULT) [address] [address] Segs + Bands,Absolute Auto 13.14 K/uL High 1.57-6.19 [facility] Comment on above: Performed By: #### L [id number] #### [facility] (DEFAULT) [address] [place] [address] WBC (Bld) [#/Vol] 17.22 10*3/uL High 3.73-10.10 [facility] Comment on above: Performed By: #### L [id number] #### [facility] (DEFAULT) [address] [place] [address] CHM 7 - EDon 06-09-2024 Anion gap [Moles/Vol] 11 mmol/L 7 - 17 mmol/L [facility] Chloride [Moles/Vol] 102 mmol/L 98 - 10 8 mmol/L [facility] CO2 [Moles/Vol] 26 mmol/L 21 - 31 mmol/L [facility] Creatinine [Mass/Vol] 0.92 mg/dL 0.70 - 1.30 mg/dL [facility] eGFR, CKD-EPI, Male - PINF [facility] Comment on above: Reported eGFR is bas ed on the CKD-EPI 2020 equation using creatinine, age, and sex. Glucose [Mass/Vol] 115 mg/dL High 70 - 99 mg/dL [facility] Interpretation and review of laboratory results Abnormal [facility] Osmolality Calc [Osmolality] 291 [facility] Potassium [Moles/Vol] 4.3 mmol/L 3.5 - 5.0 mmol/L [facility] Sodium [Moles/Vol] 135 mmol/L 135 - 145 mmol/L [facility] Urea nitrogen [Mass/Vol] 30 mg/dL High 7 - 25 mg/dL [facility] Urea nitrogen/Creatinine [Mass ratio] 33 mg/mg [facility] Anion gap [Moles/Vol] 11 mmol/L Normal 7-17 [facility] Comment on above: Performed By: #### C 7ED #### [facility] (DEFAULT) [address] [place] [address] Chloride [Moles/Vol] 102 mmol/L Normal 98-108 [facility] Comment on above: Performed By: #### C 7ED #### [facility] (DEFAULT) [address] [place] [address] 17644 CO2 [Moles/Vol] 26 mmol/L Normal 21-31 [facility] Comment on above: Performed By: #### C 7ED #### [facility] (DEFAULT) [address] [place] [address] 96119 Creatinine [Mass/Vol] 0.92 mg/dL Normal 0.70-1.30 [facility] Comment on above: Performed By: #### C 7ED #### [facility] (DEFAULT) [address] [place] [address] 76352 eGFR, CKD-EPI, Male > Normal >=60 [facility] Comment on above: Result Comment: Repo rted eGFR is based on the CKD-EPI 2020 equation using creatinine, age, and sex. Performed By: #### C 7ED #### [facility] (DEFAULT) [address] [place] [address] 39096 Glucose [Mass/Vol] 115 mg/dL High 70-99 [facility] Comment on above: Performed By: #### C 7ED #### [facility] (DEFAULT) [address] [place] [address] 29215 Osmolality [Osmolality] 291 mosm/kg Normal 278-305 [facility] Comment on above: Performed By: #### C 7ED #### [facility] (DEFAULT) [address] [place] [address] 36150 Potassium [Moles/Vol] 4.3 mmol/L Normal 3.5-5.0 [facility] Comment on above: Performed By: #### C 7ED #### [facility] (DEFAULT) [address] [place] [address] 73707 Sodium [Moles/Vol] 135 mmol/L Normal 135-145 [facility] Comment on above: Performed By: #### C 7ED #### [facility] (DEFAULT) [address] [place] [address] 04607 Urea nitrogen [Mass/Vol] 30 mg/dL High 7-25 [facility] Comment on above: Performed By: #### C 7ED #### [facility] (DEFAULT) [address] [place] [address] 48315 Urea nitrogen/Creatinine [Mass ratio] 33 mg/mg Normal [facility] Comment on above: Performed By: #### C 7ED #### [facility] (DEFAULT) [address] [place] [address] 34704 IGAon 06-09-2024 IgA [Mass/Vol] 278 mg/dL Normal 66-433 [facility] Comment on above: Performed By: #### A NASR, ANGELA, ANCA, CRP, IGA #### [facility] (DEFAULT) [address] [address] No Panel Informationon 06-09 [facility] CBC + DIFFon 05-31-2024 Baso # 0.04 x10EE3/UL Normal 0.00 - 0.10 [facility] Comment on above: Performed By: #### 2 38489 #### [facility],[address] [place] [address] 14399 Basophils/100 WBC (Bld) 0.3 % Normal 0.0 - 2.0 [facility] Comment on above: Performed By: #### 2 00913 #### [facility],[address] [place] [address] 09466 CBC + DIFF Normal [facility] Comment on above: Result Comment: CBC- COMPLETE BLOOD COUNT Performed By: #### 2 46387 #### [facility],[address] [place] [address] 93073 EO # 0.10 x10EE3/UL Normal 0.00 - 0.50 [facility] Comment on above: Performed By: #### 2 51769 #### [facility],[address] [place] [address] 80525 Eosinophils/100 WBC (Bld) 0.7 % Normal 0.0 - 7.0 [facility] Comment on above: Performed By: #### 2 51879 #### [facility],[address] [place] [address] Erythrocyte distribution width (RBC) [Ratio] 13.0 % Normal 12.0 - 15.6 [facility] Comment on above: Performed By: #### 2 32504 #### [facility],[address] [place] [address] Hematocrit (Bld) [Volume fraction] 41.0 % Normal 40.0 - 52.0 [facility] Comment on above: Performed By: #### 2 07955 #### [facility],[address] [place] [address] Hemoglobin (Bld) [Mass/Vol] 14.3 g/dL Normal 13.0 - 17.5 [facility] Comment on above: Performed By: #### 2 88291 #### [facility],[address] [place] [address] Lymph # 3.31 x10EE3/UL High 0.80 - 2.80 [facility] Comment on above: Performed By: #### 2 43671 #### [facility],[address] [place] [address] Lymphocytes/100 WBC (Bld) 24.3 % Normal 20.0 - 45.0 [facility] Comment on above: Performed By: #### 2 73435 #### [facility],[address] [place], [place] [id number] MANUAL DIFF N/A Normal [facility] Comment on above: Performed By: #### 2 17793 #### [facility],[address] [place] [address] MCH (RBC) [Entitic mass] 30 pg Normal 27 - 33 [facility] Comment on above: Performed By: #### 2 96057 #### [facility],[address] [place] [address] MCHC 35 X10 3 Normal 32 - 36 [facility] Comment on above: Performed By: #### 2 27128 #### [facility],[address] [place] [address] MCV (RBC) [Entitic vol] 86 fL Normal 81 - 98 [facility] Comment on above: Performed By: #### 2 41149 #### [facility],[address] [place] [address] [place] # 0.68 x10EE3/UL Normal 0.20 - 1.00 [facility] Comment on above: Performed By: #### 2 18603 #### [place] [address] MONOS % 5.0 % Normal 0.0 - 10.0 [facility] Comment on above: Performed By: #### 2 56993 #### [place] [address] Morphology Epi (Bld) [Interp] N/A Normal [facility] Comment on above: Performed By: #### 2 32628 #### [place] [address] Neut # 9.48 x10EE3/UL High 1.50 - 7.10 [facility] Comment on above: Performed By: #### 2 57520 #### [place] [address] Neutrophils/100 WBC (Bld) 69.7 % Normal 46.0 - 76.0 [facility] Comment on above: Performed By: #### 2 11639 #### [place] [address] PLATELET 314 x10EE3/UL Normal 150 - 450 [facility] Comment on above: Performed By: #### 2 15785 #### [facility],[address] [place] [address] Platelet mean volume (Bld) [Entitic vol] 6.7 fL Normal 6.4 - 10.5 [facility] Comment on above: Result Comment: AUTO MATED DIFFERENTIAL Performed By: #### 2 58389 #### [facility],[address] [place] [address] 26721 RBC 4.77 x 10EE6/UL Normal 4.50 - 6.00 [facility] Comment on above: Performed By: #### 2 50485 #### [facility],[address] [place] [address]7480 WBC 13.6 x 10EE3/UL High 4.5 - 10.8 [facility] Comment on above: Performed By: #### 2 14164 #### [facility],[address] [place] [address] 21824 CMP with eGFRon 05-31-2024 AGE 39 years Normal [facility] Comment on above: Performed By: #### 2 22351 #### [facility],[address] [place] [address] 20052 Albumin [Mass/Vol] 2.9 g/dL Low 3.4 - 5.0 [facility] Comment on above: Performed By: #### 2 27252 #### [facility],[address] [place] [address] 26808 Albumin/Globulin [Mass ratio] 0.8 {ratio} Low 0.9 - 1.6 [facility] Comment on above: Performed By: #### 2 39439 #### [facility],[address] [place] [address] 42237 ALK PHOS 68 U/L Normal 46 - 116 [facility] Comment on above: Performed By: #### 2 66101 #### [facility],[address] [place] [address] 37130 ALT [Catalytic activity/Vol] 56 U/L Normal 16 - 63 [facility] Comment on above: Performed By: #### 2 93321 #### [facility],[address] [place] [address] 20394 Anion gap [Moles/Vol] 14 mmol/L Normal 10 - 20 [facility] Comment on above: Performed By: #### 2 11333 #### [facility],[address] [place] [address] 62120 AST [Catalytic activity/Vol] 20 U/L Normal 15 - 37 [facility] Comment on above: Performed By: #### 2 99222 #### [facility],[address] [place] [address] 61217 B/C RATIO 27 ratio Normal 0 - 30 [facility] Comment on above: Performed By: #### 2 10831 #### [facility],[address] [place] [address] 85702 Bilirubin [Mass/Vol] 0.4 mg/dL Normal 0.2 - 1.0 [facility] Comment on above: Performed By: #### 2 31088 #### [facility],[address] [place] [address] 33349 Calcium [Mass/Vol] 8.7 mg/dL Normal 8.5 - 10.1 [facility] Comment on above: Performed By: #### 2 41471 #### [facility],[address] [place] [address] 85533 Chloride [Moles/Vol] 102 mmol/L Normal 98 - 107 [facility] Comment on above: Performed By: #### 2 08642 #### [facility],[address] [place] [address] 09295 CMP with eGFR Normal [facility] Comment on above: Result Comment: COMP REHENSIVE METABOLIC PANEL Performed By: #### 2 36716 #### [facility],[address] [place] [address] 74407 CO2 [Moles/Vol] 26.4 mmol/L Normal 21.0 - 32.0 [facility] Comment on above: Performed By: #### 2 29369 #### [facility],[address] [place] [address] 32655 Creatinine [Mass/Vol] 0.93 mg/dL Normal 0.70 - 1.30 [facility] Comment on above: Performed By: #### 2 58648 #### [facility],[address] [place] [address] 59458 GFR/1.73 sq M.predicted among non-blacks MDRD (S/P/Bld) [Vol rate/Area] mL/min/{1.73_m2} Normal 60 - 999 [facility] Comment on above: Performed By: #### 2 40348 #### [facility],[address] [place] [address] Result Comment: ACCO RDING TO THE NATIONAL KIDNEY DISEASE EDUCATION PROGRAM(NKDE), A NORMAL eGFR IS A VALUE GREATER THAN OR EQUAL TO 60 ML/MIN/1.73 SQ METERS. CHRONIC KIDNEY DISEASE: <60mL/MIN/1.73 SQ METERS KIDNEY FAILURE: <15mL/MIN/1.73 SQ METERS THIS TEST SHOULD ONLY BE USED FOR PATIENTS 18 YEARS OF AGE AND OLDER. Globulin (S) [Mass/Vol] 3.8 g/dL Normal 1.5 - 3.8 [facility] Comment on above: Performed By: #### 2 90636 #### [facility],[address] [place] [address] 97003 Glucose [Mass/Vol] 161 mg/dL High 74 - 106 [facility] Comment on above: Performed By: #### 2 32852 #### [facility],[address] [place] [address] 70144 Potassium [Moles/Vol] 3.5 mmol/L Normal 3.5 - 5.1 [facility] Comment on above: Performed By: #### 2 09379 #### [facility],[address] [place] [address] 46158 Protein [Mass/Vol] 6.7 g/dL Normal 6.4 - 8.2 [facility] Comment on above: Performed By: #### 2 26208 #### [facility],[address] [place] [address] 64906 Sodium [Moles/Vol] 139 mmol/L Normal 136 - 145 [facility] Comment on above: Performed By: #### 2 03266 #### [facility],[address] [place] [address] Urea nitrogen [Mass/Vol] 25 mg/dL High 7 - 18 [facility] Comment on above: Performed By: #### 2 87331 #### [facility],[address] [place], [place] [id number] C-REACTIVE PROTEINon 024 CRP 0.83 mg/dl Normal 0.00 - 0.90 [facility] Comment on above: Performed By: #### 2 14190 #### [facility],[address] [place] [address] CBC + DIFFon 05-15-2024 Baso # 0.04 x10EE3/UL Normal 0.00 - 0.10 [facility] Comment on above: Performed By: #### 2 21231 #### [facility],[address] [place] [address] 37836 Basophils/100 WBC (Bld) 0.3 % Normal 0.0 - 2.0 [facility] Comment on above: Performed By: #### 2 03412 #### [facility],[address] [place], [place] [id number] CBC + DIFF Normal [facility] Comment on above: Result Comment: CBC- COMPLETE BLOOD COUNT Performed By: #### 2 28888 #### [facility],[address] [place] [address] 41418 EO # 0.07 x10EE3/UL Normal 0.00 - 0.50 [facility] Comment on above: Performed By: #### 2 88301 #### [facility],[address] [place] [address] 91020 Eosinophils/100 WBC (Bld) 0.6 % Normal 0.0 - 7.0 [facility] Comment on above: Performed By: #### 2 93386 #### [facility],[address] [place] [address] Erythrocyte distribution width (RBC) [Ratio] 13.4 % Normal 12.0 - 15.6 [facility] Comment on above: Performed By: #### 2 36101 #### [facility],[address] [place] [address] Hematocrit (Bld) [Volume fraction] 46.0 % Normal 40.0 - 52.0 [facility] Comment on above: Performed By: #### 2 84570 #### [facility],[address] [place] [address] Hemoglobin (Bld) [Mass/Vol] 15.6 g/dL Normal 13.0 - 17.5 [facility] Comment on above: Performed By: #### 2 64819 #### [facility],[address] [place] [address] Lymph # 2.16 x10EE3/UL Normal 0.80 - 2.80 [facility] Comment on above: Performed By: #### 2 02684 #### [facility],[address] [place] [address] Lymphocytes/100 WBC (Bld) 15.9 % Low 20.0 - 45.0 [facility] Comment on above: Performed By: #### 2 69729 #### [facility],[address] [place], [place] [id number] MANUAL DIFF N/A Normal [facility] Comment on above: Performed By: #### 2 61331 #### [facility],[address] [place] [address] MCH (RBC) [Entitic mass] 30 pg Normal 27 - 33 [facility] Comment on above: Performed By: #### 2 28842 #### [facility],[address] [place], [place] [id number] MCHC 34 X10 3 Normal 32 - 36 [facility] Comment on above: Performed By: #### 2 10706 #### [facility],[address] [place] [address] MCV (RBC) [Entitic vol] 88 fL Normal 81 - 98 [facility] Comment on above: Performed By: #### 2 50207 #### [facility],[address] [place] [address] [place] # 0.82 x10EE3/UL Normal 0.20 - 1.00 [facility] Comment on above: Performed By: #### 2 30394 #### [place] [address] MONOS % 6.1 % Normal 0.0 - 10.0 [facility] Comment on above: Performed By: #### 2 30430 #### [facility],[address] [place] [address] Morphology Epi (Bld) [Interp] N/A Normal [facility] Comment on above: Performed By: #### 2 90981 #### [facility],[address] [place] [address] Neut # 10.47 x10EE3/UL High 1.50 - 7.10 [facility] Comment on above: Performed By: #### 2 03200 #### [place] [address] Neutrophils/100 WBC (Bld) 77.2 % High 46.0 - 76.0 [facility] Comment on above: Performed By: #### 2 08694 #### [place] [address] PLATELET 276 x10EE3/UL Normal 150 - 450 [facility] Comment on above: Performed By: #### 2 22581 #### [facility],[address],[place] [address] Platelet mean volume (Bld) [Entitic vol] 7.3 fL Normal 6.4 - 10.5 [facility] Comment on above: Result Comment: AUTO MATED DIFFERENTIAL Performed By: #### 2 94350 #### [facility],[address] [place] [address] 37075 RBC 5.24 x 10EE6/UL Normal 4.50 - 6.00 [facility] Comment on above: Performed By: #### 2 31248 #### [facility],[address] [place] [address] 56446 WBC 13.6 x 10EE3/UL High 4.5 - 10.8 [facility] Comment on above: Performed By: #### 2 30742 #### [facility],[address] [place] [address] 28984 CMP with eGFRon 05-15-2024 AGE 38 years Normal [facility] Comment on above: Performed By: #### 2 43882 #### [facility],[address] [place] [address] 06708 Albumin [Mass/Vol] 3.0 g/dL Low 3.4 - 5.0 [facility] Comment on above: Performed By: #### 2 85218 #### [facility],[address] [place] [address] 09952 Albumin/Globulin [Mass ratio] 0.8 {ratio} Low 0.9 - 1.6 [facility] Comment on above: Performed By: #### 2 45354 #### [facility],[address] [place] [address] 31633 ALK PHOS 81 U/L Normal 46 - 116 [facility] Comment on above: Performed By: #### 2 41677 #### [facility],[address] [place] [address] 29269 ALT [Catalytic activity/Vol] 77 U/L High 16 - 63 [facility] Comment on above: Performed By: #### 2 88052 #### [facility],[address] [place] [address] 85176 Anion gap [Moles/Vol] 15 mmol/L Normal 10 - 20 [facility] Comment on above: Performed By: #### 2 10601 #### [facility],[address] [place] [address] 89884 AST [Catalytic activity/Vol] 28 U/L Normal 15 - 37 [facility] Comment on above: Performed By: #### 2 10102 #### [facility],[address] [place] [address] 25360 B/C RATIO 23 ratio Normal 0 - 30 [facility] Comment on above: Performed By: #### 2 54534 #### [facility],[address] [place] [address] 27133 Bilirubin [Mass/Vol] 0.4 mg/dL Normal 0.2 - 1.0 [facility] Comment on above: Performed By: #### 2 06943 #### [facility],[address] [place] [address] 66095 Calcium [Mass/Vol] 8.4 mg/dL Low 8.5 - 10.1 [facility] Comment on above: Performed By: #### 2 94971 #### [facility],[address] [place] [address] 49253 Chloride [Moles/Vol] 101 mmol/L Normal 98 - 107 [facility] Comment on above: Performed By: #### 2 03297 #### [facility],[address] [place] [address] 87732 CMP with eGFR Normal [facility] Comment on above: Result Comment: COMP REHENSIVE METABOLIC PANEL Performed By: #### 2 06141 #### [facility],[address] [place] [address] 48870 CO2 [Moles/Vol] 25.9 mmol/L Normal 21.0 - 32.0 [facility] Comment on above: Performed By: #### 2 72136 #### [facility],[address] [place] [address] 80952 Creatinine [Mass/Vol] 1.04 mg/dL Normal 0.70 - 1.30 [facility] Comment on above: Performed By: #### 2 05068 #### [facility],[address] [place] [address] 73975 GFR/1.73 sq M.predicted among non-blacks MDRD (S/P/Bld) [Vol rate/Area] mL/min/{1.73_m2} Normal 60 - 999 [facility] Comment on above: Performed By: #### 2 16767 #### [facility],[address] [place], [place] [address] Result Comment: ACCO RDING TO THE NATIONAL KIDNEY DISEASE EDUCATION PROGRAM(NKDE), A NORMAL eGFR IS A VALUE GREATER THAN OR EQUAL TO 60 ML/MIN/1.73 SQ METERS. CHRONIC KIDNEY DISEASE: <60mL/MIN/1.73 SQ METERS KIDNEY FAILURE: <15mL/MIN/1.73 SQ METERS THIS TEST SHOULD ONLY BE USED FOR PATIENTS 18 YEARS OF AGE AND OLDER. Globulin (S) [Mass/Vol] 4.0 g/dL High 1.5 - 3.8 [facility] Comment on above: Performed By: #### 2 56714 #### [facility],[address] [place] [address] 46087 Glucose [Mass/Vol] 168 mg/dL High 74 - 106 [facility] Comment on above: Performed By: #### 2 57887 #### [facility],[address] [place] [address] 16366 Potassium [Moles/Vol] 3.5 mmol/L Normal 3.5 - 5.1 [facility] Comment on above: Performed By: #### 2 49743 #### [facility],[address] [place] [address] 50132 Protein [Mass/Vol] 7.0 g/dL Normal 6.4 - 8.2 [facility] Comment on above: Performed By: #### 2 86430 #### [facility],[address] [place] [address] 81428 Sodium [Moles/Vol] 138 mmol/L Normal 136 - 145 [facility] Comment on above: Performed By: #### 2 21582 #### [facility],[address] [place] [address] 07574 Urea nitrogen [Mass/Vol] 24 mg/dL High 7 - 18 [facility] Comment on above: Performed By: #### 2 41197 #### [facility],[address] [place] [address] 39409 GROUP A STREP BY PCR ([facility])on 05-15-2024 GROUP A STREP Negative Normal [facility] Comment on above: Result Comment: GROU P A B-HEMOLYTIC STREPTOCOCCUS (GAS)(S.PYOGENES) THIS ASSAY HAS BEEN VALIDATED IN THE [facility] FOR USE WITH THROAT SWAB SPECIMENS IN A LIQUID AMIES BASED TRANSPORT SYSTEM (NYLON FLOCKED SWAB WITH 1ml MODIFIED LIQUID AMIES (ESWAB)). INTERPRETIVE DATA TEST RESULTS SHOULD BE INTERPRETED IN CONJUNCTION WITH OTHER LABORATORY AND CLINICAL DATA. NEGATIVE TEST RESULTS DO NOT RULE OUT OTHER POSSIBLE INFECTIONS BESIDES THOSE CAUSED BY GROUP A STREPTOCOCCUS. POSITIVE TEST RESULTS DO NOT RULE OUT CO-INFECTION WITH OTHER PATHOGENS. A POSITIVE TEST RESULT FOR GROUP A STREP INDICATES THAT BACTERIAL NUCLEIC ACIDS FROM GROUP A B-HEMOLYTIC STREPTOCOCCUS WERE DETECTED. A NEGATIVE TEST RESULT FOR THIS TEST MEANS THAT BACTERIAL NUCLEIC ACIDS FROM GROUP A STREP WERE NOT PRESENT IN THE SPECIMEN ABOVE THE LIMIT OF DETECTION. WHEN DIAGNOSTIC TESTING IS NEGATIVE, THE POSSIBLILTY OF A FALSE NEGATIVE RESULT SHOULD BE CONSIDERED IN THE CONTEXT OF A PATIENT'S RECENT EXPOSURES AND THE PRESENCE OF CLINICAL SIGNS AND SYMPTOMS CONSISTENT WITH GROUP A B-HEMOLYTIC STREPTOCOCCUS INFECTION. THERE IS A RISK OF FALSE NEGATIVE RESULTS DUE TO IMPROPERLY COLLECTED, TRANSPORTED, OR HANDLED SWAB SAMPLES. THERE IS A RISK OF FALSE NEGATIVE RESULTS DUE TO THE PRESENCE OF SEQUENCE VARIANTS IN THE TARGETS OF THE ASSAY, PROCEDURAL ERRORS, AMPLIFICATION INHIBITORS IN SAMPLES, OR INADEQUATE NUMBERS OF ORGANISM(S) FOR AMPLIFICATION. FALSE NEGATIVE RESULTS MAY BE OBTAINED IN THE PRESENCE OF NYQUIL (0.5% V/V). FALSE NEGATIVE RESULTS MAY BE OBSERVED IN THE PRESENCE OF HIGH CONCENTRATIONS OF TREPONEMA DENTICOLA. THE DAGO GROUP A STREP ASSAY DOES NOT DISTINGUISH BETWEEN VIABLE AND NONVIABLE ORGANISMS AND MAY PRODUCE A POSITIVE RESULT IN THE ABSENCE OF LIVING ORGANISMS. THE DAGO GROUP A STREP ASSAY DOES NOT DIFFERENTIATE ASYMPTOMATIC CARRIERS OF GROUP A STREPTOCOCCUS FROM THOSE EXHIBITING STREPTOCOCCAL INFECTION. THERE IS A RISK OF FALSE POSITIVE RESULTS DUE TO POTENTIAL CROSS-CONTAMINATION BY TARGET ORGANISM(S), THEIR NUCLEIC ACID OR AMPLIFIED PRODUCT, OR FROM NON- SPECIFIC SIGNALS IN THE ASSAY. ADDITIONAL FOLLOW-UP TESTING BY CULTURE IS REQUIRED IF THE DAGO GROUP A STREP ASSAY RESULT IS NEGATIVE AND CLINICAL SYMPTOMS PERSIST, OR IN THE EVENT OF AN OUTBREAK OF ACUTE RHEUMATIC FEVER (ARF). Performed By: #### 2 98694 #### [address] [address] LYME DISEASE BY PCR [[facility]]on 05-15-2024 B. burgdorferi PCR Not detected Normal [facility] Comment on above: Result Comment: NOT DETECTED - A negative result does not rule out the presence of PCR inhibitors in the patient specimen or assay specific nucleic acid in concentrations below the level of detection by the assay. Blood and CSF specimens have poor clinical sensitivity for detection of Borrelia burgdorferi by PCR. INTERPRETIVE INFORMATION: Borrelia Species DNA Detection by PCR This test was developed and its performance characteristics determined by [facility]. It has not been cleared or approved by the [place] Food and Drug Administration. This test was performed in a CLIA certified laboratory and is intended for clinical purposes. Performed By: [facility] [address] [place] [id number] Director Biology: Jun Blackmon MD, PhD [place] Number: [id number] [place] [address] Jeromy Chambers III, M.D. [id number] Performed By: #### 2 48829 #### [address] [address] RAPID STREPon 05-15-2024 S. pyogenes Ag IA Ql (Unsp spec) Rapid Strep NEG:GRP A STREP INTERNAL QC PASS EXTERNAL QC DONE? YES Normal [facility] Comment on above: Performed By: #### 2 96921 #### [place] [address],[place] [address] SEDRATEon 05-15-2024 SEDRATE 8 mm/hr Normal 0 - 20 [facility] Comment on above: Performed By: #### 2 81175 #### [facility],[address] [place] [address] APTTon 05-11-2024 aPTT Coag (Bld) [Time] 27.8 s Normal 25.4 - 38.4 [facility] Comment on above: Performed By: #### 2 40051 #### [facility],[address] [place] [address] C-REACTIVE PROTEINon 024 CRP 1.66 mg/dl High 0.00 - 0.90 [facility] Comment on above: Performed By: #### 2 72587 #### [facility],[address] [place] [address] CBC + DIFFon 05-11-2024 Baso # 0.03 x10EE3/UL Normal 0.00 - 0.10 [facility] Comment on above: Performed By: #### 2 07344 #### [facility],[address] [place] [address] 80839 Basophils/100 WBC (Bld) 0.4 % Normal 0.0 - 2.0 [facility] Comment on above: Performed By: #### 2 01373 #### [facility],[address] [place] [address] CBC + DIFF Normal [facility] Comment on above: Result Comment: CBC- COMPLETE BLOOD COUNT Performed By: #### 2 09201 #### [address] [address] EO # 0.23 x10EE3/UL Normal 0.00 - 0.50 [facility] Comment on above: Performed By: #### 2 29356 #### [facility],[address] [place] [address] 86845 Eosinophils/100 WBC (Bld) 2.7 % Normal 0.0 - 7.0 [facility] Comment on above: Performed By: #### 2 48024 #### [facility],[address] [place] [address] Erythrocyte distribution width (RBC) [Ratio] 13.4 % Normal 12.0 - 15.6 [facility] Comment on above: Performed By: #### 2 36429 #### [facility],[address] [place], [place] [phone] Hematocrit (Bld) [Volume fraction] 46.6 % Normal 40.0 - 52.0 [facility] Comment on above: Performed By: #### 2 49944 #### [facility],[address] [place] [address] Hemoglobin (Bld) [Mass/Vol] 15.6 g/dL Normal 13.0 - 17.5 [facility] Comment on above: Performed By: #### 2 27167 #### [facility],[address] [place] [address] Lymph # 2.08 x10EE3/UL Normal 0.80 - 2.80 [facility] Comment on above: Performed By: #### 2 95849 #### [facility],[address] [place], [place] [address] Lymphocytes/100 WBC (Bld) 24.4 % Normal 20.0 - 45.0 [facility] Comment on above: Performed By: #### 2 03631 #### [facility],[address] [place] [address] 51226 MANUAL DIFF N/A Normal [facility] Comment on above: Performed By: #### 2 80703 #### [facility],[address] [place] [address] 91640 MCH (RBC) [Entitic mass] 29 pg Normal 27 - 33 [facility] Comment on above: Performed By: #### 2 28458 #### [address],[place] [address] MCHC 34 X10 3 Normal 32 - 36 [facility] Comment on above: Performed By: #### 2 17174 #### [facility],[address] [place] [address] MCV (RBC) [Entitic vol] 86 fL Normal 81 - 98 [facility] Comment on above: Performed By: #### 2 34923 #### [facility],[address] [place] [address] [place] # 0.48 x10EE3/UL Normal 0.20 - 1.00 [facility] Comment on above: Performed By: #### 2 73550 #### [facility],[address] [place] [address] MONOS % 5.6 % Normal 0.0 - 10.0 [facility] Comment on above: Performed By: #### 2 67970 #### [facility],[address] [place] [address] Morphology Epi (Bld) [Interp] N/A Normal [facility] Comment on above: Performed By: #### 2 40533 #### [facility],[address] [place] [address] Neut # 5.70 x10EE3/UL Normal 1.50 - 7.10 [facility] Comment on above: Performed By: #### 2 45548 #### [facility],[address] [place] [address] Neutrophils/100 WBC (Bld) 66.9 % Normal 46.0 - 76.0 [facility] Comment on above: Performed By: #### 2 74043 #### [facility],[address] [place] [address] PLATELET 271 x10EE3/UL Normal 150 - 450 [facility] Comment on above: Performed By: #### 2 09735 #### [facility],[address],[place] [address] Platelet mean volume (Bld) [Entitic vol] 6.9 fL Normal 6.4 - 10.5 [facility] Comment on above: Result Comment: AUTO MATED DIFFERENTIAL Performed By: #### 2 10175 #### [facility],[address] [place] [address] 08131 RBC 5.43 x 10EE6/UL Normal 4.50 - 6.00 [facility] Comment on above: Performed By: #### 2 59974 #### [facility],[address] [place] [address] 70438 WBC 8.5 x 10EE3/UL Normal 4.5 - 10.8 [facility] Comment on above: Performed By: #### 2 81045 #### [facility],[address] [place], [place] [phone] CMP with eGFRon 05-11-2024 AGE 38 years Normal [facility] Comment on above: Performed By: #### 2 60342 #### [facility],[address] [place] [address] 03720 Albumin [Mass/Vol] 3.1 g/dL Low 3.4 - 5.0 [facility] Comment on above: Performed By: #### 2 16882 #### [facility],[address] [place] [address] 74620 Albumin/Globulin [Mass ratio] 0.7 {ratio} Low 0.9 - 1.6 [facility] Comment on above: Performed By: #### 2 13538 #### [facility],[address] [place] [address] 04015 ALK PHOS 97 U/L Normal 46 - 116 [facility] Comment on above: Performed By: #### 2 30455 #### [facility],[address] [place] [address] 50524 ALT [Catalytic activity/Vol] 91 U/L High 16 - 63 [facility] Comment on above: Performed By: #### 2 01158 #### [facility],[address] [place] [address] 79972 Anion gap [Moles/Vol] 14 mmol/L Normal 10 - 20 [facility] Comment on above: Performed By: #### 2 32908 #### [facility],[address] [place] [address] 56190 AST [Catalytic activity/Vol] 40 U/L High 15 - 37 [facility] Comment on above: Performed By: #### 2 85304 #### [facility],[address] [place] [address] 01478 B/C RATIO 19 ratio Normal 0 - 30 [facility] Comment on above: Performed By: #### 2 18759 #### [facility],[address] [place] [address] 28386 Bilirubin [Mass/Vol] 0.3 mg/dL Normal 0.2 - 1.0 [facility] Comment on above: Performed By: #### 2 19269 #### [facility],[address] [place] [address] 32877 Calcium [Mass/Vol] 9.1 mg/dL Normal 8.5 - 10.1 [facility] Comment on above: Performed By: #### 2 18885 #### [facility],[address] [place] [address] 36167 Chloride [Moles/Vol] 102 mmol/L Normal 98 - 107 [facility] Comment on above: Performed By: #### 2 40798 #### [facility],[address] [place] [address] 74280 CMP with eGFR Normal [facility] Comment on above: Result Comment: COMP REHENSIVE METABOLIC PANEL Performed By: #### 2 80659 #### [facility],[address] [place] [address] 84232 CO2 [Moles/Vol] 25.5 mmol/L Normal 21.0 - 32.0 [facility] Comment on above: Performed By: #### 2 50653 #### [facility],[address] [place] [address] 44633 Creatinine [Mass/Vol] 0.98 mg/dL Normal 0.70 - 1.30 [facility] Comment on above: Performed By: #### 2 12922 #### [facility],[address] [place] [address] 95377 GFR/1.73 sq M.predicted among non-blacks MDRD (S/P/Bld) [Vol rate/Area] mL/min/{1.73_m2} Normal 60 - 999 [facility] Comment on above: Performed By: #### 2 75026 #### [facility],[address] [place] [address] 78793 Result Comment: ACCO RDING TO THE NATIONAL KIDNEY DISEASE EDUCATION PROGRAM(NKDE), A NORMAL eGFR IS A VALUE GREATER THAN OR EQUAL TO 60 ML/MIN/1.73 SQ METERS. CHRONIC KIDNEY DISEASE: <60mL/MIN/1.73 SQ METERS KIDNEY FAILURE: <15mL/MIN/1.73 SQ METERS THIS TEST SHOULD ONLY BE USED FOR PATIENTS 18 YEARS OF AGE AND OLDER. Globulin (S) [Mass/Vol] 4.2 g/dL High 1.5 - 3.8 [facility] Comment on above: Performed By: #### 2 48247 #### [facility],[address] [place] [address] 52230 Glucose [Mass/Vol] 143 mg/dL High 74 - 106 [facility] Comment on above: Performed By: #### 2 05406 #### [facility],[address] [place] [address] 79417 Potassium [Moles/Vol] 3.5 mmol/L Normal 3.5 - 5.1 [facility] Comment on above: Performed By: #### 2 63779 #### [address] [address] Protein [Mass/Vol] 7.3 g/dL Normal 6.4 - 8.2 [facility] Comment on above: Performed By: #### 2 60550 #### [facility],[address] [place] [address] 19727 Sodium [Moles/Vol] 138 mmol/L Normal 136 - 145 [facility] Comment on above: Performed By: #### 2 48556 #### [facility],[address] [place] [address] 61137 Urea nitrogen [Mass/Vol] 19 mg/dL High 7 - 18 [facility] Comment on above: Performed By: #### 2 11911 #### [facility],[address] [place] [address] 02262 CORONAVIRUS (SARS) ANTIGEN T ESTon 05-11-2024 EXTERNAL QC DONE? YES Normal [facility] Comment on above: Performed By: #### 2 35833 #### [facility],[address] [place] [address] 80314 INTERNAL CONTROL PASS Normal [facility] Comment on above: Performed By: #### 2 05598 #### [facility],[address] [place] [address] 26167 SARS ANTIGEN Negative Normal NORMAL: NEGATIVE [facility] Comment on above: Performed By: #### 2 99673 #### [facility],[address] [place] [address] 32459 SEND TO ? NO Normal [facility] Comment on above: Result Comment: SARS -CoV-2 THIS TEST IS BEING USED UNDER THE FDA EUA PROCEDURE. THIS ASSAY HAS BEEN VALIDATED AT [facility] FOR USE WITH NASAL AND NASOPHARYNGEAL SWAB SPECIMENS. INTERPRETIVE DATA TEST RESULTS SHOULD ALWAYS BE CONSIDERED IN THE CONTEXT OF CLINICAL OBSERVATIONS AND EPIDEMIOLOGICAL DATA IN MAKING FINAL DIAGNOSIS AND PATIENT MANAGEMENT DECISIONS. PATIENT MANAGEMENT SHOULD FOLLOW CURRENT CDC GUIDELINES. THE KRISTY SARS ANTIGEN CORINE DOES NOT DIFFERENTIATE BETWEEN SARS-CoV & SARS-CoV-2. A POSITIVE TEST RESULT INDICATES THE PRESENCE OF SARS-CoV-2 NUCLEOCAPSID PROTEIN ANTIGEN, AND THE PATIENT IS INFECTED WITH THE VIRUS AND PRESUMED TO BE CONTAGIOUS. A NEGATIVE TEST RESULT FOR THIS TEST MEANS THAT SARS-CoV-2 NUCLEOCAPSID PROTEIN ANTIGEN WAS NOT PRESENT IN THE SPECIMEN ABOVE THE LIMIT OF DETECTION. HOWEVER, A NEGATIVE RESULT DOES NOT RULE OUT COVID-19 AND SHOULD NOT BE USED THE SOLE BASIS FOR TREATMENT OR PATIENT MANAGEMENT DECISIONS. A NEGATIVE RESULT DOES NOT EXCLUDE THE POSSIBILITY OF COVID-19. NEGATIVE RESULTS, FROM PATIENTS WITH SYMPTOM ONSET BEYOND FIVE DAYS, SHOULD BE TREATED PRESUMPTIVE AND CONFIRMATION WITH A MOLECULAR ASSAY, IF NECESSARY, FOR PATIENT MANAGEMENT, MAY BE PERFORMED. WHEN DIAGNOSTIC TESTING IS NEGATIVE, THE POSSIBLILTY OF A FALSE NEGATIVE RESULT SHOULD BE CONSIDERED IN THE CONTEXT OF A PATIENT'S RECENT EXPOSURES AND THE PRESENCE OF CLINICAL SIGNS AND SYMPTOMS CONSISTENT WITH COVID-19. THE POSSIBILITY OF A FALSE NEGATIVE RESULT SHOULD ESPECIALLY BE CONSIDERED IF THE PATIENT'S RECENT EXPOSURES OR CLINICAL PRESENTATION INDICATE THAT COVID-19 IS LIKELY, AND DIAGNOSTIC TESTS FOR OTHER CAUSES OF ILLNESS (e.g., OTHER RESPIRATORY ILLNESS) ARE NEGATIVE. IF COVID-19 IS STILL SUSPECTED BASED ON EXPOSURE HISTORY TOGETHER WITH OTHER CLINICAL FINDINGS, RE-TESTING SHOULD BE CONSIDERED BY HEALTHCARE PROVIDERS IN CONSULTATION WITH PUBLIC HEALTH AUTHORITIES. Performed By: #### 2 26688 #### [place] [id number] CULTURE BLOOD [JS]on Microscopic examination of blood, culture CULTURE BLOOD [JS] _BLO[facility] CULTURE_ [facility] AND [facility]ACH[facility] FOR SCANNED REPORT 05/17/[email or web address].COMPLETE Normal [facility] Comment on above: Performed By: #### 2 31517 #### [facility],[address] [place] [address] 58944 Microscopic examination of blood, culture CULTURE BLOOD [JS] _BLOOD CULTURE_ [facility] AND ATTACHMENTS FOR SCANNED REPORT 05/17/[email or web address].COMPLETE Normal [facility] Comment on above: Performed By: #### 2 23906 #### [facility],[address] [place] [address] 90758 LYME DISEASE BY PCRon 2023 BORRELIA SP. PCR Not detected [facility] Comment on above: Order Comment: Speci men Type: BLOOD SPECIMEN Ordering Facility: [facility] Address: [address] [place] [address] Result Comment: NOT DETECTED - A negative result does not rule out the presence of PCR inhibitors in the patient specimen or assay specific nucleic acid in concentrations below the level of detection by the assay. Blood and CSF specimens have poor clinical sensitivity for detection of Borrelia burgdorferi by PCR. INTERPRETIVE INFORMATION: Borrelia Species DNA Detection by PCR This test was developed and its performance characteristics determined by [facility]. It has not been cleared or approved by the [place] Food and Drug Administration. This test was performed in a CLIA certified laboratory and is intended for clinical purposes. Performed By: [facility] [address] [place] [address] Director Biology: Jun Blackmon MD, PhD CLIA Number: [id number] Performed By: #### L YPCR #### [facility] CLIA [id number] [address] [place] [address] Specimen source Nom (Unsp spec) Serum Normal [facility] Comment on above: Order Comment: Speci men Type: BLOOD SPECIMEN Ordering Facility: [facility] Address: [address] [place] [address] Performed By: #### L YPCR #### [facility] CLIA [id number] [address] [place] [address] PROTHROMBIN TIME AND INRon 0 - INR Coag (PPP) [Relative time] 1.0 {INR} Normal 0.8 - 1.2 [facility] Comment on above: Result Comment: T HE HEMOSIL THROMBOPLASTIN REAGENT USED IN THE PROTHROMBIN TIME TEST INTERACTS WITH THE DRUG CUBICIN (DAPTOMYCIN) AND WILL RESULT IN FALSELY ELEVATED PT / INR RESULTS INR INTERPRETATION INR INDICATION PREVENTION AND TREATMENT OF THROMBOEMBOLISM ASSOCIATED WITH: 2.0 - 3.0 ATRIAL FIBRILLATION, BIOPROSTHETIC HEART VALVES, PULMONARY EMBOLISM, VENOUS THROMBOSIS, SYSTEMIC EMBOLISM POST MYOCARDIAL INFARCTION 2.5 - 3.5 MECHANICAL HEART VALVES Performed By: #### 2 61397 #### [facility],[address] [place] [address] 13222 PROTHROMBIN TIME AND INR Normal [facility] Comment on above: Result Comment: PROT HROMBIN TIME AND INR Performed By: #### 2 37366 #### [facility],[address] [place] [address] 57779 PT-COUMADIN 11.8 sec Normal 9.3 - 14.1 [facility] Comment on above: Performed By: #### 2 40991 #### [facility],[address] [place] [address] 33528 SEDRATEon 05-11-2024 SEDRATE 12 mm/hr Normal 0 - 20 [facility] Comment on above: Performed By: #### 2 26112 #### [facility],[address] [place] [address] 77180 EMERGENCY DEPARTMENT REPORTo n 12-03-2019 EMERGENCY DEPARTMENT REPORT [place] [id number] HEALTH INFORMATION MANAGEMENT EMERGENCY DEPARTMENT REPORT Patient: KRYSTEN CROOKJANENE Reilly M.D. [id number] M Status: DEP ER ED Date of Service: 12/03/19 CHIEF COMPLAINT: Cough, congestion, fever, and chills. HISTORY OF PRESENT ILLNESS: 34-year-old male just returned today from [place] where he was visiting his sister who contracted influenza B while he was there. Now, he has body aches, fever, chills, myalgias, rhinorrhea, and cough. The patient states he has anti flu shot when I asked him if he got a flu shot this year. He is a nonsmoker. No history of asthma. Cough has been nonproductive. PHYSICAL EXAMINATION: GENERAL: This is a 34-year-old male with temp of 99.6, O2 sat is 94%. He is not displaying any respiratory distress or air hunger. He is alert and oriented x3. HEENT: TMs are clear bilaterally. Minimal sinus tenderness to percussion. Mild rhinorrhea. Pharynx has mild erythema. No JVD or lymphadenopathy. PULMONARY: Lung toribio are clear. EMERGENCY DEPARTMENT COURSE: Flu swab was positive for influenza B. Discussed Tamiflu and my practice is reserved it for the patient's who are more immunocompromise. TREATMENT: Antipyretics, lots of fluids, [id number] Sudafed or Mucinex. Report#: Dict ID [id number] / Int ID [id number] 12/04/19 1214 JANENE DALE M.D. cc: JANENE DALE M.D.; No Physician << Signature on File>> Reported By: JANENE DALE M.D. Signed By: JANENE DALE M.D. Tests performed at: [place] [id number] Normal [facility] FLU PCRon 12-03-2019 FLU A (PCR) Negative Normal NEGATIVE [facility] Comment on above: Order Comment: What is the source+ SWAB Performed By: #### L 400.0015 #### [facility] - LABORATORY [address] [place] [id number] FLU B (PCR) Positive Normal NEGATIVE [facility] Comment on above: Order Comment: What is the source+ SWAB Result Comment: Requires Droplet Precautions Performed By: #### L 400.0015 #### [facility] - LAB[facility]ATORY [address] [place] [id number] Vital Signs Date Time Vital Sign Value Performing Clinician Facility 05-24-2025 08:57-0400 Body height 172.72 cm Tavon FELIX Work Phone: [facility] 05-24-2025 08:57-0400 Body mass index (BMI) [Ratio] 46.8 kg/m2 Tavon FELIX Work Phone: [facility] 05-24-2025 08:57-0400 Body weight 139.87 kg Tavon FELIX Work Phone: [facility] 05-24-2025 08:57-0400 Diastolic blood pressure 81 mm[Hg] Tavon FELIX Work Phone: [facility] 05-24-2025 08:57-0400 Heart rate 74 /min Tavon FELIX Work Phone: [facility] 05-24-2025 08:57-0400 Respiratory rate 16 /min Tavon Rollins ERP PROJECT MANAGER-C Work Phone: [facility] 05-24-2025 08:57-0400 SaO2% (BldA) [Mass fraction] 94 % Tavon Rollins ERP PROJECT MANAGER-C Work Phone: [facility] 05-24-2025 08:57-0400 Systolic blood pressure 115 mm[Hg] Tavon Rollins ERP PROJECT MANAGER-C Work Phone: [facility] 01-24-2025 08:46-0400 Body height 172.7 cm Huy Marquez MD Work Phone: [facility] 01-24-2025 08:46-0400 Body mass index (BMI) [Ratio] 45.62 kg/m2 Huy Marquez MD Work Phone: [facility] 01-24-2025 08:46-0400 Body weight 136.1 kg Huy Marquez MD Work Phone: [facility] 01-24-2025 08:46-0400 Diastolic blood pressure 78 mm[Hg] Huy Marquez MD Work Phone: [facility] 01-24-2025 08:46-0400 Heart rate 60 /min Huy Marquez MD Work Phone: [facility] 01-24-2025 08:46-0400 SaO2% (BldA) [Mass fraction] 94 % Huy Marquez MD Work Phone: [facility] 01-24-2025 08:46-0400 Systolic blood pressure 110 mm[Hg] Huy Marquez MD Work Phone: [facility] 10-26-2024 10:48-0500 Diastolic blood pressure 90 mm[Hg] Huy Marquez MD Work Phone: [facility] 10-26-2024 10:48-0500 Systolic blood pressure 140 mm[Hg] Huy Marquez MD Work Phone: [facility] 10-26-2024 10:30-0500 Body height 172.7 cm Huy Marquez MD Work Phone: [facility] 10-26-2024 10:30-0500 Body mass index (BMI) [Ratio] 44.65 kg/m2 Huy Marquez MD Work Phone: [facility] 10-26-2024 10:30-0500 Body weight 133.2 kg Huy Marquez MD Work Phone: [facility] 10-26-2024 10:30-0500 Heart rate 72 /min Huy Marquez MD Work Phone: [facility] 10-26-2024 10:30-0500 SaO2% (BldA) [Mass fraction] 96 % Huy Marquez MD Work Phone: [facility] 08-24-2024 08:24-0500 Diastolic blood pressure 83 mm[Hg] Rob Alba DPM Work Phone: [facility] 08-24-2024 08:24-0500 Heart rate 97 /min Rob Alba DPM Work Phone: [facility] 08-24-2024 08:24-0500 Systolic blood pressure 110 mm[Hg] Rob Alba DPM Work Phone: [facility] 08-24-2024 08:16-0500 Body temperature 97.3 [degF] Rob Alba DPM Work Phone: [facility] 08-24-2024 08:16-0500 Respiratory rate 16 /min Rob Alba DPM Work Phone: [facility] 08-10-2024 08:17-0400 Diastolic blood pressure 85 mm[Hg] Rob Alba DPM Work Phone: [facility] Comment on above: asymptomatic, recheck b/p 08-10-2024 08:17-0400 Heart rate 84 /min Rob Alba DPM Work Phone: [facility] 08-10-2024 08:17-0400 Systolic blood pressure 120 mm[Hg] Rob Alba DPM Work Phone: [facility] Comment on above: asymptomatic, recheck b/p 08-10-2024 08:10-0400 Body temperature 97.59 [degF] Rob Alba DPM Work Phone: [facility] 08-10-2024 08:10-0400 Respiratory rate 6 /min Rob Alba DPM Work Phone: [facility] 08-03-2024 08:37-0400 Body temperature 97.5 [degF] Rob Alba DPM Work Phone: [facility] 08-03-2024 08:37-0400 Diastolic blood pressure 83 mm[Hg] Rob Alba DPM Work Phone: [facility] Comment on above: bp re-check 118/77 08-03-2024 08:37-0400 Heart rate 86 /min Rob Alba DPM Work Phone: [facility] 08-03-2024 08:37-0400 Respiratory rate 18 /min Rob Alba DPM Work Phone: [facility] 08-03-2024 08:37-0400 Systolic blood pressure 135 mm[Hg] Rob Alba DPM Work Phone: [facility] Comment on above: bp re-check 118/77 08-02-2024 09:16-0400 Diastolic blood pressure 86 mm[Hg] Huy Marquez MD Work Phone: [facility] 08-02-2024 09:16-0400 Systolic blood pressure 125 mm[Hg] Huy Marquez MD Work Phone: [facility] 08-02-2024 09:11-0400 Body mass index (BMI) [Ratio] 43.44 kg/m2 Huy Marquez MD Work Phone: [facility] 08-02-2024 09:11-0400 Body weight 129.6 kg Huy Marquez MD Work Phone: [facility] 08-02-2024 09:11-0400 Heart rate 79 /min Huy Marquez MD Work Phone: [facility] 08-02-2024 09:11-0400 SaO2% (BldA) [Mass fraction] 97 % Huy Marquez MD Work Phone: [facility] 07-27-2024 08:37-0400 Body temperature 97.59 [degF] Rob Alba DPM Work Phone: [facility] 07-27-2024 08:37-0400 Diastolic blood pressure 94 mm[Hg] Rob Alba DPM Work Phone: [facility] Comment on above: pt asyptomatic 07-27-2024 08:37-0400 Heart rate 73 /min Rob Alba DPM Work Phone: [facility] 07-27-2024 08:37-0400 Respiratory rate 18 /min Rob Alba DPM Work Phone: [facility] 07-27-2024 08:37-0400 Systolic blood pressure 137 mm[Hg] Rob Alba DPM Work Phone: [facility] Comment on above: pt asyptomatic 07-20-2024 09:07-0400 Body temperature 97.81 [degF] Rob Alba DPM Work Phone: [facility] 07-20-2024 09:07-0400 Diastolic blood pressure 86 mm[Hg] Rob Alba DPM Work Phone: [facility] 07-20-2024 09:07-0400 Heart rate 98 /min Rob Alba DPM Work Phone: [facility] 07-20-2024 09:07-0400 Respiratory rate 16 /min Rob Alba DPM Work Phone: [facility] 07-20-2024 09:07-0400 Systolic blood pressure 119 mm[Hg] Rob Alba DPM Work Phone: [facility] 07-13-2024 08:19-0400 Body height 172.7 cm Rob Alba DPM Work Phone: [facility] 07-13-2024 08:19-0400 Body mass index (BMI) [Ratio] 39.53 kg/m2 Rob Alba DPM Work Phone: [facility] 07-13-2024 08:19-0400 Body temperature 97.9 [degF] Rob Alba DPM Work Phone: [facility] 07-13-2024 08:19-0400 Body weight 117.94 kg Rob Alba DPM Work Phone: [facility] 07-13-2024 08:19-0400 Diastolic blood pressure 76 mm[Hg] Rob Alba DPM Work Phone: [facility] 07-13-2024 08:19-0400 Heart rate 88 /min Rob Alba DPM Work Phone: [facility] 07-13-2024 08:19-0400 Respiratory rate 16 /min Rob Alba DPM Work Phone: [facility] 07-13-2024 08:19-0400 Systolic blood pressure 123 mm[Hg] Rob Alba DPM Work Phone: [facility] 07-07-2024 15:16-0400 Diastolic blood pressure 92 mm[Hg] Tanmay Do APRN.FINISHED CLOTH EXAMINER Work Phone: [facility] Comment on above: re-check 07-07-2024 15:16-0400 Systolic blood pressure 128 mm[Hg] Tanmay Do APRN.FINISHED CLOTH EXAMINER Work Phone: [facility] Comment on above: re-check 07-07-2024 14:42-0400 Body temperature 98.91 [degF] Tanmay Do APRN.FINISHED CLOTH EXAMINER Work Phone: [facility] 07-07-2024 14:42-0400 Body weight 127.46 kg Tanmay Do APRN.FINISHED CLOTH EXAMINER Work Phone: [facility] 07-07-2024 14:42-0400 Heart rate 80 /min Tanmay Do APRN.FINISHED CLOTH EXAMINER Work Phone: [facility] 07-07-2024 14:42-0400 SaO2% (BldA) [Mass fraction] 97 % Tanmay Do APRN.FINISHED CLOTH EXAMINER Work Phone: [facility] 06-29-2024 14:13-0400 Body temperature 98.2 [degF] Tanmay Do IRON WORKER APPRENTICE.FINISHED CLOTH EXAMINER Work Phone: [facility] 06-29-2024 14:13-0400 Diastolic blood pressure 88 mm[Hg] Tanmay Andrewsr IRON WORKER APPRENTICE.FINISHED CLOTH EXAMINER Work Phone: [facility] 06-29-2024 14:13-0400 Heart rate 89 /min Tanmay Hi IRON WORKER APPRENTICE.FINISHED CLOTH EXAMINER Work Phone: [facility] 06-29-2024 14:13-0400 Respiratory rate 18 /min Tanmay Do IRON WORKER APPRENTICE.FINISHED CLOTH EXAMINER Work Phone: [facility] 06-29-2024 14:13-0400 SaO2% (BldA) [Mass fraction] 96 % Tanmay Do IRON WORKER APPRENTICE.FINISHED CLOTH EXAMINER Work Phone: [facility] 06-29-2024 14:13-0400 Systolic blood pressure 122 mm[Hg] Tanmay Do IRON WORKER APPRENTICE.FINISHED CLOTH EXAMINER Work Phone: [facility] 06-10-2024 14:29-0400 Diastolic blood pressure 80 mm[Hg] Vargas Woods MD Work Phone: [facility] 06-10-2024 14:29-0400 Systolic blood pressure 138 mm[Hg] Vargas Woods MD Work Phone: [facility] 06-10-2024 14:15-0400 Body temperature 98.71 [degF] Vargas Woods MD Work Phone: [facility] 06-10-2024 14:15-0400 Heart rate 95 /min Vargas Woods MD Work Phone: [facility] 06-10-2024 14:15-0400 Respiratory rate 20 /min Vargas Woods MD Work Phone: [facility] 06-10-2024 14:15-0400 SaO2% (BldA) [Mass fraction] 96 % Vargas Woods MD Work Phone: [facility] 06-10-2024 12:00-0400 Body weight 128.78 kg Vargas Woods MD Work Phone: [facility] Encounters Encounter Date Encounter Type Care Provider Facility Start: 06-25-2025 ambulatory Out of Town Doctor Donna mezay:[facility] Start: 05-24-2025 End: 05-24-[address] Jabari Reese MD -[facility] Work Phone: Start: 05-24-2025 End: 05-24-2025 ambulatory Tavon Rollins ERP PROJECT MANAGER-C Work Phone: -[facility] Start: 04-24-2025 End: 04-24-2025 ambulatory Tavon Rollins ERP PROJECT MANAGER-C Work Phone: -[facility] [place] Start: 04-24-2025 End: 04-24-[address] Edith Gore MD -[facility] Work Phone: Start: 04-24-2025 End: 04-24-2025 ambulatory Edith Gore Facility:[facility] Start: 04-07-2025 End: 04-07-2025 Emergency department patient visit HUY MARQUEZ Facility:[id number] Start: 04-06-2025 End: 04-06-2025 ambulatory EDITH GORE [facility] Start: 03-26-2025 End: 03-26-2025 ambulatory Tavon Rollins ERP PROJECT MANAGER-C Work Phone: [facility] Work Phone: Start: 03-26-2025 End: 03-26-[address] Cayla Logan MD -[facility] [place] Work Phone: Start: 03-26-2025 End: 03-26-2025 ambulatory Cayla Logan Facility:[facility] Start: 03-15-2025 End: 03-15-2025 Refill Huy Marquez MD Work Phone: [facility] Comment on above: Refill Request Start: 01-24-2025 End: 01-24-2025 Patient encounter procedure Huy Marquez MD Work Phone: [facility] Comment on above: Hypertension, unspec ified type (Primary Dx); IgA nephropathy; IgA mediated leukocytoclastic vasculitis Start: 01-24-2025 End: 01-24-2025 ambulatory HUY MARQUEZ Facility:[id number] Start: 12-26-2024 End: 12-26-2024 ambulatory CAYLA LOGAN [facility] Start: 12-25-2024 End: 12-25-2024 ambulatory Tavon Rollins ERP PROJECT MANAGER-C Work Phone: [facility] Work Phone: Start: 12-25-2024 End: 12-25-[address] [facility] Start: 12-25-2024 End: 12-25-2024 ambulatory Edith Gore Facility:[facility] Start: 12-21-2024 End: 12-21-[address] CAYLA LOGAN MD Facility:[facility] Start: 11-27-2024 End: 11-27-2024 Refill Huy Marquez MD Work Phone: [facility] Comment on above: Refill Request Start: 10-26-2024 End: 10-26-2024 Patient encounter procedure Huy Marquez MD Work Phone: [facility] Comment on above: Nicotine dependence, uncomplicated, unspecified nicotine product type (Primary Dx); IgA mediated leukocytoclastic vasculitis (HCC); Hypertension, unspecified type Start: 10-26-2024 End: 10-26-2024 ambulatory HUY MARQUEZ Facility:[id number] Start: 10-25-2024 End: 10-25-2024 Telephone encounter uHy Marquez MD Work Phone: [facility] Comment on above: Appointment (10/25/24 ); No Show Start: 10-20-2024 End: 10-20-2024 Telephone encounter Huy Marquez MD Work Phone: [facility] Comment on above: Appointment Start: 08-29-2024 End: 08-29-[facility] Start: 08-24-2024 End: 08-24-2024 Patient encounter procedure Rob Alba DPM Work Phone: [facility] Comment on above: IgA mediated leukocy toclastic vasculitis (HCC) (Primary Dx); 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); 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); Chronic venous hypertension (idiopathic) with ulcer of bilateral lower extremity (CODE) (HCC); Secondary lymphedema Start: 08-24-2024 End: 08-24-2024 ambulatory ROB ALBA Facility:[id number] Start: 08-10-2024 End: 08-10-2024 Patient encounter procedure Rob Alba DPM Work Phone: [facility] Comment on above: IgA mediated leukocy toclastic vasculitis (HCC) (Primary Dx); 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); 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); Chronic venous hypertension (idiopathic) with ulcer of bilateral lower extremity (CODE) (HCC); Secondary lymphedema Start: 08-10-2024 End: 08-10-2024 ambulatory ROB ALBA Facility:[id number] Start: 08-03-2024 End: 08-03-2024 Patient encounter procedure Rob Alba DPM Work Phone: [facility] Comment on above: IgA mediated leukocy toclastic vasculitis (HCC) (Primary Dx); 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); 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); Chronic venous hypertension (idiopathic) with ulcer of bilateral lower extremity (CODE) (HCC); Secondary lymphedema Start: 08-03-2024 End: 08-03-2024 ambulatory ROB ALBA Facility:[id number] Start: 08-02-2024 End: 08-02-2024 Patient encounter procedure Huy Marquez MD Work Phone: [facility] Comment on above: Wellness examination (Primary Dx); Screening for depression; Encounter for screening examination for other mental health and behavioral disorders; Encounter for immunization; Nicotine dependence, uncomplicated, unspecified nicotine product type; IgA mediated leukocytoclastic vasculitis (HCC) Start: 08-02-2024 End: 08-02-2024 Patient encounter status Huy Marquez MD Work Phone: [facility] Work Phone: Start: 08-02-2024 End: 08-02-2024 ambulatory HUY MARQUEZ Facility:[id number] Start: 07-27-2024 End: 07-27-2024 Patient encounter procedure Rob Alba DPM Work Phone: [facility] Comment on above: IgA mediated leukocy toclastic vasculitis (HCC) (Primary Dx); 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); 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); Chronic venous hypertension (idiopathic) with ulcer of bilateral lower extremity (CODE) (HCC); Secondary lymphedema Start: 07-27-2024 End: 07-27-2024 ambulatory ROB ALBA Facility:[id number] Start: 07-20-2024 End: 07-20-2024 ambulatory ROB ALBA Facility:[id number] Start: 07-20-2024 End: 07-20-2024 Patient encounter procedure Rob Alba DPM Work Phone: [facility] Comment on above: IgA mediated leukocy toclastic vasculitis (HCC) (Primary Dx); 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); 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); Chronic venous hypertension (idiopathic) with ulcer of bilateral lower extremity (CODE) (HCC); Secondary lymphedema Start: 07-13-2024 End: 07-13-2024 Patient encounter procedure Rob Avni Alba DPM Work Phone: [facility] Comment on above: IgA mediated leukocy toclastic vasculitis (HCC) (Primary Dx); 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); 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); Chronic venous hypertension (idiopathic) with ulcer of bilateral lower extremity (CODE) (HCC); Secondary lymphedema Start: 07-13-2024 End: 07-13-2024 ambulatory ROB GONZALEZMENDEZ Facility:[id number] Start: 07-07-2024 End: 07-07-2024 ambulatory TANMAY DO Facility:[id number] Start: 07-07-2024 End: 07-07-2024 Patient encounter procedure Tanmay Do APRN.CNP Work Phone: [facility] Comment on above: Vasculitis (HCC) (Pr imary Dx) Start: 06-29-2024 End: 06-29-2024 ambulatory TANMAY DO Facility:[id number] Start: 06-29-2024 End: 06-29-2024 Patient encounter procedure Tanmay Do IRON WORKER APPRENTICE.RADHA Work Phone: [facility] Comment on above: Wound infection (Evelyn rozina Dx) Start: 06-24-2024 Emergency department patient visit TAMRA IBARRAYU Facility:[id number] Start: 06-19-2024 End: 06-19-2024 Emergency department patient visit TAVON GARCIA [facility] Start: 06-09-2024 End: 06-10-2024 ambulatory KRYSTEN HERZOG Facility:[facility] Start: 06-09-2024 End: 06-10-2024 Emergency department patient visit Vargas oWods MD Work Phone: [facility] Start: 06-02-2024 End: 06-03-2024 Emergency department patient visit VARGAS DAVIS [facility] Start: 05-31-2024 End: 05-31-2024 Emergency department patient visit TAVON GARCIA [facility] Start: 05-15-2024 End: 05-15-2024 Emergency department patient visit SEAN DELGADO [facility] Start: 05-11-2024 End: 05-11-2024 Emergency department patient visit TAVON GARCIA [facility] Procedures Date Procedure Procedure Detail Performing Clinician Start: 04-24-2025 Urnls dip stick/tabl et reagent auto microscopy Tavon Ria ERP PROJECT MANAGER-C Work Phone: Start: 03-26-2025 Parathyroid hormone measurement Tavon Mccrackenler ERP PROJECT MANAGER-C Work Phone: Start: 03-26-2025 Vitamin D, 25-hydrox y measurement Tavon Mccrackenler ERP PROJECT MANAGER-C Work Phone: Comment on above: Vitamin D StatusDefi ciency: <20 ng/mL (50nmol/L)Insufficiency: 20-30 ng/mL (50-75 nmol/L)Sufficiency: 30-100 ng/mL (75-250 nmol/L)Toxicity: >100 ng/mL (>250 nmol/L) Start: 12-25-2024 Urnls dip stick/tabl et reagent auto microscopy Tavon Ria ERP PROJECT MANAGER-C Work Phone: Start: 08-02-2024 Adult depression scr eening assessment Huy Marquez MD Work Phone: Start: 06-10-2024 EXTRA MICRO Vargas almeida MD Work Phone: Start: 06-10-2024 Urinalysis microscopic only Angela Rajendra IRON WORKER APPRENTICE-FINISHED CLOTH EXAMINER Work Phone: Start: 06-10-2024 URINALYSIS REFLEX TO CULTURE Vargas Woods MD Work Phone: Start: 06-10-2024 Urnls dip stick/tabl et rgnt auto w/o microscopy Angela Rajednra IRON WORKER APPRENTICE-FINISHED CLOTH EXAMINER Work Phone: Start: 06-10-2024 Sedimentation rate r bc automated Vargas Woods MD Work Phone: Start: 06-09-2024 Assay of gammaglobul in iga igd igg igm each Yanna Vera MD Work Phone: Start: 06-09-2024 C-reactive protein Mitra Woods MD Work Phone: Start: 06-09-2024 CBC AND ELECTRONIC DIFF Torres Steward MD Work Phone: Start: 06-09-2024 Complete blood count with white cell differential, automated Torres Steward MD Work Phone: Start: 06-09-2024 GOLD TOP TUBE Torres Cho MD Work Phone: Start: 06-09-2024 LAVENDER TOP TUBE Torres Steward MD Work Phone: Start: 06-09-2024 LT BLUE TOP TUBE Torres Steward MD Work Phone: Start: 06-09-2024 MINT GREEN TOP TUBE Leandra Cohn MD Work Phone: Start: 06-09-2024 RAINBOW DRAW oTrres Munguia MD Work Phone: Plan of Treatment Date Care Activity Detail Author Start: 01-24-2026 Annual PCP Team Template Layout Worker h[place] Disease Visit Annual PCP Team Chronic Disease Visit [facility] Start: 01-24-2026 BP Controlled (<130/80) BP Con trolled (<130/80) [facility] Start: 10-26-2025 Annual PCP Team Template Layout Worker haleigh Disease Visit Annual PCP Team Chronic Disease Visit [facility] Start: 08-08-2025 End: 08-08-2025 Patient encounter procedure 08/08/2025 8:00 AM EDT Office Visit [address] [place], [place] [id number] Huy Marquez MD [address] [place] [address] [place], [place] [id number] Return in about 6 months (around 07/26/2025) for annual check-up. [facility] Comment on above: Return in about 6 mo nths (around 07/26/2025) for annual check-up. Start: 08-02-2025 Annual PCP Team Template Layout Worker haleigh Disease Visit Annual PCP Team Chronic Disease Visit [facility] Start: 08-02-2025 Anxiety Screening Anxiety Screening [facility] Start: 08-02-2025 Depression Screening Depression Scre ening [facility] Start: 06-18-2025 Influenza vaccination Influenz a Vaccine (Season Ended) [facility] Start: 01-24-2025 End: 01-24-2025 Patient encounter procedure 01/24/2025 9:00 AM EDT Office Visit [address] [place], [place] [phone] Huy Marquez MD [address] [place] [address] [place], [place] [id number] Return in about 3 months (around 01/24/2025) for hypertension [facility] Comment on above: Return in about 3 mo nths (around 01/24/2025) for hypertension Start: 10-26-2024 End: 10-26-2024 Patient encounter procedure 10/26/2024 10:40 AM EST Office Visit [address] [place], [place] [id number] Huy Marquez MD [address] [place] [address] [place] [address] 3 month FU [facility] Comment on above: 3 month FU Start: 10-25-2024 End: 10-25-2024 Patient encounter procedure 10/25/2024 9:00 AM EST Office Visit [address] [place], [place] [id number] Huy Marquez MD [address] [place] [address] [place], [place] [id number] 3 month f/u [facility] Comment on above: 3 month f/u Start: 10-24-2024 End: 10-24-2024 Patient encounter procedure 10/24/2024 8:00 AM EST Office Visit Rheumatology [address] [address] Radha Hurtado MD [address] [place] [address] VASCULITITS Rheumatology Comment on above: VASCULITITS Start: 08-24-2024 End: 08-24-2024 Patient encounter procedure 08/24/2024 8:00 AM EST Office Visit [address] [address] Rob Alba DPM [address] [address] RLE [facility] Comment on above: RLE Start: 08-10-2024 End: 08-10-2024 Patient encounter procedure 08/10/2024 8:00 AM EDT Office Visit [address] [address] Rob Alba DPM [address] [id number] BLE [facility] Comment on above: BLE Start: 08-08-2024 End: 08-08-2024 Patient encounter procedure 08/08/2024 9:00 AM EDT Office Visit Rheumatology [address] [address] Radha Hurtado MD [address] [place] [address] iga vasculitis Rheumatology Comment on above: iga vasculitis Start: 08-03-2024 End: 08-03-2024 Patient encounter procedure 08/03/2024 8:30 AM EDT Office Visit [address] [address] Rob Alba DPM [address] [id number] RT/LT lower ext. [facility] Comment on above: RT/LT lower ext. Start: 08-02-2024 End: 08-02-2024 Patient encounter procedure 08/02/2024 9:20 AM EDT Office Visit [address] [place], [place] [phone] Huy Marquez MD [address] [place] [address] [place], [place] [phone] est PCP [facility] Comment on above: est PCP Start: 07-27-2024 End: 07-27-2024 Patient encounter procedure 07/27/2024 8:30 AM EDT Office Visit [facility] [address] [place] [address] [id number] Rob Alba DPM [address] [address] BLE [facility] Comment on above: BLE Start: 07-20-2024 End: 07-20-2024 Patient encounter procedure 07/20/2024 9:00 AM EDT Office Visit [facility] [address] [place], [place] [address] Rob Alba DPM [address] [address] BLE ulcers [facility] Comment on above: BLE ulcers Start: 07-13-2024 End: 07-13-2024 Patient encounter procedure 07/13/2024 8:30 AM EDT Office Visit [facility] [address] [place], [place] [address] Rob Alba DPM [address] 235272 BLE [facility] Comment on above: BLE Start: 06-18-2024 Covid-19 Vaccine () Covid-19 Vaccine () [facility] Start: 06-18-2024 Covid-19 Vaccine ( season) Covid-19 Vaccine ( season) [facility] Start: 06-18-2024 Influenza vaccination INFLUENZA VACC INE (#1) [facility] Start: 06-18-2023 COVID-19 VACCINE ( season) COVID-19 VACCINE () [facility] Start: 2021 Lipid panel Lipid Screening [facility] Start: 2005 Hepatitis B vaccination HEP B VACCINE (1 of 3 - 19+ 3-dose series) [facility] Start: 2005 Hepatitis B Vaccine (1 of 3 - 19+ 3-dose series) Hepatitis B Vaccine (1 of 3 - 19+ 3-dose series) [facility] Start: 2005 Third diphtheria, tetanus and acellular pertussis (DTaP) vaccination TDAP (ADULT) [facility] Start: 2005 Urine microalbumin profile DTaP,Tdap,Td Vaccine (1 - Tdap) [facility] Start: 2004 Anxiety Screening Anxiety Screening [facility] Start: 2004 BP Controlled (<130/80) BP Con trolled (<130/80) [facility] Start: 2004 Depression Screening Depression Scre ening [facility] Start: 2004 HIV screening HIV Screening [facility] Start: 2001 HIV screening HIV SCREENING DISCUSSION [facility] Start: 1986 Hepatitis C screening HEPATITI S C VIRUS SCREENING [facility] Start: 1986 Tetanus vaccination TETANUS [facility] End: 06-10-2024 Acute hepatitis 2000 panel - Serum [facility] Comment on above: One Time for 1 Occur rences starting 06/10/2024 until 06/10/2024 End: 06-10-2024 [place] MULTIPLEX SCRN WITH REFLEX [facility] Comment on above: One Time for 1 Occur rences starting 06/10/2024 until 06/10/2024 End: 06-10-2024 [place] SCREEN IFA [facility] Comment on above: One Time for 1 Occur rences starting 06/10/2024 until 06/10/2024 End: 06-10-2024 ANTI NEUTROPHIL CYTOPLASMIC ANTIBODY [facility] Comment on above: One Time for 1 Occur rences starting 06/10/2024 until 06/10/2024 Immunizations Immunization Date Immunization Notes Care Provider Fa cility 01-05-2025 meningococcal (MenACWY-TT) vaccine, quadrivalent (MENQUADFI) Huy Marquez MD Work Phone: [facility] 01-05-2025 pneumococcal conjuga te (PCV20) vaccine, 20 valent (PREVNAR 20) Huy Marquez MD Work Phone: [facility] Payers Date Payer Category Payer Self-pay 2024 Private Health Insurance [employer] [id number] 2024 Unknown [id number] 2024 Unknown [id number] 1985 Unknown [id number] [id number]. 2.594 1986 Unknown [id number] 2.16.840.1.616263.3.579. 2.627 1986 Unknown [id number] 2.16.840.1.297512.3.579. 2.651 1986 Unknown [id number] 2.16.840.1.821749.3.579. 2.651 1986 Unknown [id number] 2.16.840.1.850556.3.579. 2.651 1986 Unknown [id number] 2.16.840.1.750673.3.579. 2.651 1986 Unknown [id number] 2.16.840.1.879449.3.579. 2.651 1986 Unknown [id number] 2.16.840.1.110862.3.579. 2.651 1986 Unknown [id number] 2.16.840.1.097942.3.579. 2.651 Unknown [id number] 2.16.840.1.268288.3.579. 2.462 Unknown [id number] 2.16.840.1.235701.3.579. 2.462 Unknown [id number] 2.840.1.401886.3.579. 2.462 Unknown [id number] 2.16.840.1.894245.3.579. 2.462 Unknown [id number] 2.16840.1.609955.3.579. 2.462 Unknown [id number] [id number]. 2.462 Social History Date Type Detail [facility] Start: 1985 Sex assigned at Not on file [facility] Start: 06-25-2024 End: 08-02-2024 Gender identity Not on file [facility] Start: 06-25-2024 End: 08-02-2024 History of Social function [facility] National Score (1-100), lower number is lower risk 61 [facility] Start: 07-20-2024 [facility] tobacco [facility] Start: 07-20-2024 Tobacco use and exposure User of smokeless tobacco [facility] Start: 07-20-2024 Tobacco Comment [facility] Start: 08-02-2024 End: 05-18-2025 Tobacco smoking status NHIS Ex-smoker [facility] Start: 10-18-2008 End: 10-18-2018 History of tobacco use Current smoker [facility] Start: 10-18-2008 End: 10-18-2018 History of tobacco use Cigarette Smoker [facility] Start: 08-02-2024 Tobacco use and exposure Former smokeless tobacco user [facility] End: 10-18-2021 History of tobacco use Chews Tobacco [facility] Start: 08-02-2024 End: 08-24-2024 Alcoholic beverage intake Current drinker of alcohol (finding) [facility] Start: 08-02-2024 Alcohol Comment [facility] Start: 01-04-2025 Sex Male (finding) [facility] Start: 1985 Sex Assigned At Male [facility] Goals Date Patient Goal Desired Activity /State Personal health goal Comment on above: Formatting of this n ote might be different from the original. Knowledge deficit related to the care of the non-healing wound. Goal: Patient/caregiver will verbalize understanding of the care of the non-healing wound. Clinical Notes 05-16-2024 to 04-07-2025 Telephone Encounter - Sujata Willingham MA - 03/15/2025 11:36 AM EDTTelephone Encounter - Sujata Willingham MA - 03/15/2025 11:36 AM EDTPatient Huy Holman MD - 01/24/2025 9:01 AM EDT Note Date & Type Note Facility 04-07-2025 Note HNO ID: [id number] Author: RODRIGO SINGLETARY RT(R) Service: Radiology Author Type: Technologist Type: Progress Notes Filed: 04/07/2025 19:48 Note Text: Radiology Service Progress Note PATIENT NAME: Krysten Crook DATE OF SERVICE: April 07, 2025 TIME: 7:48 PM PATIENT IDENTITY VERIFICATION COMPLETED USING TWO (2) IDENTIFIERS: Name and Date of confirmed by patient verbally and Name and Date of confirmed by identification band. FALL SCREENING: Has the patient had 2 falls in the last year or 1 fall with injury or currently using an Ambulatory Assistive Device (Walker, Cane, Wheelchair, Crutches, etc.)? Emergency Room Patient: Screened in ED PATIENT GENDER DATA: Assigned male at PATIENT RELEVANT IMPLANT DATA REVIEWED: Not Applicable PATIENT PRESENTS WITH AN IMPLANTABLE OR ATTACHED MULTI NEEDLE MACHINE OPERATOR: No RADIOLOGY DEPARTMENT: General X-ray: Exam(s) Completed: Chest X-Ray PERIPHERAL IV DATA: Not applicable SIGNED BY: RT Carmela(R) April 07, 2025 7:[address] [facility] 03-15-2025 Telephone encounter Note Prescription Refill Information The patient has been identified by name and date of : Yes Caregiver verified no other encounters exist for this prescription request: Yes Caregiver confirmed with patient/requestor that no other refills are due, in the near future, with this provider at this time: Yes The last office visit in the department: 01/24/2025 Does the patient have a future office visit with this provider/department: Yes 08/08/2025 Requested Prescriptions Pending Prescriptions Disp Refills lisinopril (ZESTRIL) 10 mg tablet 90 tablet 1 Sig: Take 1 tablet by mouth every afternoon. Sujata Willingham MA March 15, 2025 11:36 AM [facility] 03-15-2025 Miscellaneous Notes Prescription Refill Information The patient has been identified by name and date of : Yes Caregiver verified no other encounters exist for this prescription request: Yes Caregiver confirmed with patient/requestor that no other refills are due, in the near future, with this provider at this time: Yes The last office visit in the department: 01/24/2025 Does the patient have a future office visit with this provider/department: Yes 08/08/2025 Requested Prescriptions Pending Prescriptions Disp Refills lisinopril (ZESTRIL) 10 mg tablet 90 tablet 1 Sig: Take 1 tablet by mouth every afternoon. Sujata Willingham MA March 15, 2025 11:36 AM documented in this encounter [facility] 01-24-2025 Instructions Huy Marquez MD - 01/24/2025 9:05 AM EDT - Continue taking Farxiga and Lisinopril as prescribed. - Follow up with your kidney doctor - Continue follow-up with your ceramic artist - Next appointment with your primary care physician is in July for your annual checkup. documented in this encounter [facility] 01-24-2025 Note HNO ID: [id number] Author: HUY MARQUEZ MD Service: ? Author Type: Physician Type: Progress Notes Filed: 01/24/2025 12:31 Note Text: Huy Marquez MD [address] [place] [address] Dept: [phone] Dept Visit Date: January 24, 2025 Name: Krysten Crook Date of : 1985 MRN/E #: [id number] Age: [age] year old Sex: male Subjective Patient presents with: Follow Up The patient consented to the use of [employer] software for draft documentation of the visit consistent with [facility]?s Notice of Privacy Practices. Subjective Hypertension: - Blood pressure reportedly well-controlled. - Currently taking lisinopril. 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 - Under the care of bass viol repairer - now taking Farxiga. - Awaiting delivery of [place] per nephrology - Followed by ceramic artist as well Active Non-Hospital Problems Diagnosis IgA nephropathy Class 3 severe obesity without serious comorbidity in adult (HCC) Hypertension Hypercholesterolemia IgA mediated leukocytoclastic vasculitis PAST MEDICAL HISTORY Diagnosis Date Hypercholesterolemia Current Outpatient Medications Medication Sig dapagliflozin propanediol (FARXIGA) 10 mg tablet Take 10 mg by mouth once daily. lisinopril (ZESTRIL) 10 mg tablet Take 1 tablet by mouth every afternoon. No current facility-administered medications for this visit. Objective Objective 01/24/25 0846 BP: 110/78 BP Site: Left Arm BP Position: Sitting BP Cuff Size: Large Adult Pulse: 60 SpO2: 94% Weight: (!) 136.1 kg (300 lb 0.7 oz) Height: 172.7 cm (5' 8) Body mass index is 45.62 kg/m?. Last 3 Encounter BP Readings: Date: BP: 01/24/2025 110/78 10/26/2024 140/90 08/24/2024 110/83 Last 3 Encounter Wt Readings: Date: Wt: 01/24/2025 136.1 kg (300 lb 0.7 oz) 10/26/2024 133.2 kg (293 lb 10.4 oz) 08/02/2024 129.6 kg (285 lb 11.5 oz) Physical Exam Vitals and nursing note reviewed. Constitutional: General: He is not in acute distress. HENT: Head: Normocephalic and atraumatic. Eyes: Conjunctiva/sclera: Conjunctivae normal. Cardiovascular: Rate and Rhythm: Normal rate and regular rhythm. Heart sounds: No murmur heard. No friction rub. No gallop. Pulmonary: Effort: Pulmonary effort is normal. No respiratory distress. Breath sounds: Normal breath sounds. No stridor. No wheezing, rhonchi or rales. Skin: General: Skin is warm and dry. Coloration: Skin is not jaundiced. Neurological: General: No focal deficit present. Mental Status: He is alert. Tests: - Kidney Biopsy 12/21/24: Findings consistent with IgA nephropathy. Assessment / Plan 1. Hypertension, unspecified type (I10) - Blood pressure is well-controlled on current medication regimen. - Continue lisinopril as prescribed. 2. IgA nephropathy (N02.B9) 3. 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 - continue farxiga per nephrology - Awaiting delivery of [place] per nephrology - continue to follow with nephro and rheum Return in about 6 months (around 07/26/2025) for annual check-up. Discussed the above with the patient using shared decision-making. Counseling, education, and support provided. Reviewed precaution measures and when to seek additional care. Patient voiced understanding and agreed with the plan. Medical Decision Making: Problems: Moderate: 2+ stable chronic illnesses Risk: Moderate: Drug management Medical Decision Making Level: 4 - Moderate Provider: Huy Marquez MD Date: January 24, 2025 [facility] 01-24-2025 History of Present illness Narrative Images from the original note were not included. Huy Marquez MD [address] [place] [address] Dept: [phone] Dept Visit Date: January 24, 2025 Name: Krysten Crook Date of : 1985 MRN/E #: [id number] Age: [age] year old Sex: male Subjective Patient presents with: Follow Up The patient consented to the use of [employer] software for draft documentation of the visit consistent with [facility] s Notice of Privacy Practices. Subjective Hypertension: - Blood pressure reportedly well-controlled. - Currently taking lisinopril. 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 - Under the care of bass viol repairer - now taking Farxiga. - Awaiting delivery of [place] per nephrology - Followed by ceramic artist as well Active Non-Hospital Problems Diagnosis IgA nephropathy Class 3 severe obesity without serious comorbidity in adult (HCC) Hypertension Hypercholesterolemia IgA mediated leukocytoclastic vasculitis PAST MEDICAL HISTORY Diagnosis Date Hypercholesterolemia Current Outpatient Medications Medication Sig dapagliflozin propanediol (FARXIGA) 10 mg tablet Take 10 mg by mouth once daily. lisinopril (ZESTRIL) 10 mg tablet Take 1 tablet by mouth every afternoon. No current facility-administered medications for this visit. Objective Objective 01/24/2546 BP: 110/78 BP Site: Left Arm BP Position: Sitting BP Cuff Size: Large Adult Pulse: 60 SpO2: 94% Weight: (!) 136.1 kg (300 lb 0.7 oz) Height: 172.7 cm (5' 8) Body mass index is 45.62 kg/m . Last 3 Encounter BP Readings: Date: BP: 01/24/2025 110/78 10/26/2024 140/90 08/24/2024 110/83 Last 3 Encounter Wt Readings: Date: Wt: 01/24/2025 136.1 kg (300 lb 0.7 oz) 10/26/2024 133.2 kg (293 lb 10.4 oz) 08/02/2024 129.6 kg (285 lb 11.5 oz) Physical Exam Vitals and nursing note reviewed. Constitutional: General: He is not in acute distress. HENT: Head: Normocephalic and atraumatic. Eyes: Conjunctiva/sclera: Conjunctivae normal. Cardiovascular: Rate and Rhythm: Normal rate and regular rhythm. Heart sounds: No murmur heard. No friction rub. No gallop. Pulmonary: Effort: Pulmonary effort is normal. No respiratory distress. Breath sounds: Normal breath sounds. No stridor. No wheezing, rhonchi or rales. Skin: General: Skin is warm and dry. Coloration: Skin is not jaundiced. Neurological: General: No focal deficit present. Mental Status: He is alert. Tests: - Kidney Biopsy 12/21/24: Findings consistent with IgA nephropathy. Assessment / Plan 1. Hypertension, unspecified type (I10) - Blood pressure is well-controlled on current medication regimen. - Continue lisinopril as prescribed. 2. IgA nephropathy (N02.B9) 3. 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 - continue farxiga per nephrology - Awaiting delivery of [place] per nephrology - continue to follow with nephro and rheum Return in about 6 months (around 07/26/2025) for annual check-up. Discussed the above with the patient using shared decision-making. Counseling, education, and support provided. Reviewed precaution measures and when to seek additional care. Patient voiced understanding and agreed with the plan. Medical Decision Making: Problems: Moderate: 2+ stable chronic illnesses Risk: Moderate: Drug management Medical Decision Making Level: 4 - Moderate Provider: Huy Marquez MD Date: January 24, 2025 documented in this encounter [facility] 12-25-2024 Note ORIGINAL PROCEDURE: CT guided percutaneous core renal biopsy performed on 12/21/2024. INDICATION: Proteinuria. TECHNIQUE/FINDINGS: The procedure was performed in the CT Room following informed consent and a Time Out. Local anesthesia was obtained using 2% lidocaine. With the patient in a prone position, limited axial CT images were obtained to localize the kidneys. The precise skin entry site was identified. The lower left back was prepped and draped in the usual sterile fashion. A 9.5 cm, 17-G coaxial needle was inserted towards and then into the inferior left kidney in incremental steps, as guided by limited axial CT images. Through the 17-G needle, a 15 cm, 18-G biopsy needle was inserted and core biopsies were performed. A total of 3 biopsies were obtained, which were sent for pathology. The 17-G coaxial needle was removed. Following the biopsies, CT imaging revealed no significant hemorrhage. There were no immediate complications. CT Radiation Dose: Integrated Dose-length product (DLP) = 314.1 mGy*cm. CT Dose Reduction Employed: Per department protocol including the following measures where applicable: Automated exposure control, adjustment of the mAs and/or kVp according to patient size and/or exam, and an iterative reconstruction algorithm. Intra-Service Time (Moderate Sedation): 30 minutes. Patient Monitoring: I personally supervised and directed an independent trained observer who assisted in monitoring the patient's level of consciousness and physiological status throughout the procedure. IMPRESSION: Successful CT-guided percutaneous 18-G core biopsy of the inferior left kidney. Interpreted by: Drake Burns MD Preliminary Report By: Drake Burns MD Electronically signed By Drake Burns MD Dictated Date: 12/25/2024 3:16:01 PM Prelim Date: 12/25/2024 3:17:57 PM Sign Date: 12/25/2024 3:17:57 PM Ordering Provider: [facility] 11-27-2024 Telephone encounter Note Left voicemail for patient to call office. Please advise Lolita David MA [facility] 11-27-2024 Miscellaneous Notes Left voicemail for patient to call office. Please advise Lolita David MA Attempted to call patient, left message to return call. Irma Holly MA Please inform patient: given patient's age, there is no indication for patient to be on this medication. If patient is okay with it, I would advise stopping this medication as it is unnecessary for him to be on it. Prescription Refill Information The patient has been identified by name and date of : Yes Caregiver verified no other encounters exist for this prescription request: Yes Caregiver confirmed with patient/requestor that no other refills are due, in the near future, with this provider at this time: Yes The last office visit in the department: 10/26/2024 Does the patient have a future office visit with this provider/department: Yes Requested Prescriptions Pending Prescriptions Disp Refills atorvastatin (LIPITOR) 20 mg tablet 90 tablet Sig: Take 1 tablet by mouth once daily. Irma Holly MA November 27, 2024 8:34 AM documented in this encounter [facility] 11-27-2024 Telephone encounter Note Attempted to call patient, left message to return call. Irma Holly MA [facility] 11-27-2024 Telephone encounter Note Please inform patient: given patient's age, there is no indication for patient to be on this medication. If patient is okay with it, I would advise stopping this medication as it is unnecessary for him to be on it. [facility] 11-27-2024 Telephone encounter Note Prescription Refill Information The patient has been identified by name and date of : Yes Caregiver verified no other encounters exist for this prescription request: Yes Caregiver confirmed with patient/requestor that no other refills are due, in the near future, with this provider at this time: Yes The last office visit in the department: 10/26/2024 Does the patient have a future office visit with this provider/department: Yes Requested Prescriptions Pending Prescriptions Disp Refills atorvastatin (LIPITOR) 20 mg tablet 90 tablet Sig: Take 1 tablet by mouth once daily. Irma Holly MA November 27, 2024 8:34 AM [facility] 10-26-2024 Note HNO ID: [id number] Author: HUY MARQUEZ MD Service: ? Author Type: Physician Type: Progress Notes Filed: 10/26/2024 10:54 Note Text: Huy Marquez MD [address] [place] [address] Dept: [phone] Dept Visit Date: October 26, 2024 Name: Krysten Crook Date of : 1985 MRN/E #: [id number] Subjective Chief Complaint: Follow Up Subjective Krysten Crook is a 39 year old male here with the following concern(s): - Quit vaping 2 months ago. Doing well with this; has no cravings and does not feel the need to restart - Following with rheum for vasculitis; improving. Has upcoming appointment with kidney doctor - Of note patient admits to forgetting to take lisinopril multiple times weekly - No concerns or questions today Active Non-Hospital Problems Diagnosis Class 3 severe obesity without serious comorbidity in adult (HCC) Hypertension Hypercholesterolemia IgA mediated leukocytoclastic vasculitis (HCC) PAST MEDICAL HISTORY Diagnosis Date Hypercholesterolemia Current Outpatient Medications Medication Sig atorvastatin (LIPITOR) 20 mg tablet Take 20 mg by mouth once daily. lisinopril (ZESTRIL) 10 mg tablet Take 1 tablet by mouth every afternoon. No current facility-administered medications for this visit. Objective Objective 10/26/24 1030 10/26/24 1048 BP: 148/84 140/90 BP Site: Left Arm BP Position: Sitting BP Cuff Size: Regular Adult Pulse: 72 SpO2: 96% Weight: 133.2 kg (293 lb 10.4 oz) Height: 172.7 cm (5' 8) Body mass index is 44.65 kg/m?. Last 3 Encounter BP Readings: Date: BP: 10/26/2024 148/84 08/24/2024 110/83 08/10/2024 120/85[asymptomatic, recheck b/p[ Last 3 Encounter Wt Readings: Date: Wt: 10/26/2024 133.2 kg (293 lb 10.4 oz) 08/02/2024 129.6 kg (285 lb 11.5 oz) 07/13/2024 117.9 kg (260 lb) Physical Exam Vitals and nursing note reviewed. Constitutional: General: He is not in acute distress. HENT: Head: Normocephalic and atraumatic. Eyes: Conjunctiva/sclera: Conjunctivae normal. Cardiovascular: Rate and Rhythm: Normal rate and regular rhythm. Heart sounds: No murmur heard. No friction rub. No gallop. Pulmonary: Effort: Pulmonary effort is normal. No respiratory distress. Breath sounds: Normal breath sounds. No stridor. No wheezing, rhonchi or rales. Skin: General: Skin is warm and dry. Coloration: Skin is not jaundiced. Neurological: General: No focal deficit present. Mental Status: He is alert. Assessment / Plan Krysten was seen today for follow up. Diagnoses and all orders for this visit: Nicotine dependence, uncomplicated, unspecified nicotine product type - Resolved; patient quit 2 months and is doing well without cravings and no desire to resume - Continued cessation encouraged - Counseling, education, support provided; reviewed precaution measures and when to seek additional care IgA mediated leukocytoclastic vasculitis (HCC) - Following with rheum; improving - Counseling, education, support provided; reviewed precaution measures and when to seek additional care Hypertension, unspecified type - Missing doses of lisinopril multiple times weekly - Uncontrolled - Strongly encouraged taking lisinopril everyday - Counseling, education, support provided; reviewed precaution measures and when to seek additional care Return in about 3 months (around 01/24/2025) for hypertension. Discussed the above with the patient using shared decision-making. The patient voiced understanding and agreed with the plan. 1. Nicotine dependence, uncomplicated, unspecified nicotine product type - ICD9: 305.1, ICD10: F17.200 (primary diagnosis) 2. IgA mediated leukocytoclastic vasculitis (HCC) - ICD9: 287.0, ICD10: D69.0 3. Hypertension, unspecified type - ICD9: 401.9, ICD10: I10 Medical Decision Making: Problems: Moderate: 2+ stable chronic illnesses Risk: Moderate: Drug management Medical Decision Making Level: 4 - Moderate Provider: Huy Marquez MD Date: October 26, 2024 [facility] 10-26-2024 History of Present illness Narrative Images from the original note were not included. Huy Marquez MD [address] [place] [address] Dept: [phone] Dept Visit Date: October 26, 2024 Name: Krysten Crook Date of : 1985 MRN/E #: [id number] Subjective Chief Complaint: Follow Up Subjective Krysten Crook is a 39 year old male here with the following concern(s): - Quit vaping 2 months ago. Doing well with this; has no cravings and does not feel the need to restart - Following with rheum for vasculitis; improving. Has upcoming appointment with kidney doctor - Of note patient admits to forgetting to take lisinopril multiple times weekly - No concerns or questions today Active Non-Hospital Problems Diagnosis Class 3 severe obesity without serious comorbidity in adult (HCC) Hypertension Hypercholesterolemia IgA mediated leukocytoclastic vasculitis (HCC) PAST MEDICAL HISTORY Diagnosis Date Hypercholesterolemia Current Outpatient Medications Medication Sig atorvastatin (LIPITOR) 20 mg tablet Take 20 mg by mouth once daily. lisinopril (ZESTRIL) 10 mg tablet Take 1 tablet by mouth every afternoon. No current facility-administered medications for this visit. Objective Objective 10/26/24 1030 10/26/24 1048 BP: 148/84 140/90 BP Site: Left Arm BP Position: Sitting BP Cuff Size: Regular Adult Pulse: 72 SpO2: 96% Weight: 133.2 kg (293 lb 10.4 oz) Height: 172.7 cm (5' 8) Body mass index is 44.65 kg/m . Last 3 Encounter BP Readings: Date: BP: 10/26/2024 148/84 08/24/2024 110/83 08/10/2024 120/85[asymptomatic, recheck b/p[ Last 3 Encounter Wt Readings: Date: Wt: 10/26/2024 133.2 kg (293 lb 10.4 oz) 08/02/2024 129.6 kg (285 lb 11.5 oz) 07/13/2024 117.9 kg (260 lb) Physical Exam Vitals and nursing note reviewed. Constitutional: General: He is not in acute distress. HENT: Head: Normocephalic and atraumatic. Eyes: Conjunctiva/sclera: Conjunctivae normal. Cardiovascular: Rate and Rhythm: Normal rate and regular rhythm. Heart sounds: No murmur heard. No friction rub. No gallop. Pulmonary: Effort: Pulmonary effort is normal. No respiratory distress. Breath sounds: Normal breath sounds. No stridor. No wheezing, rhonchi or rales. Skin: General: Skin is warm and dry. Coloration: Skin is not jaundiced. Neurological: General: No focal deficit present. Mental Status: He is alert. Assessment / Plan Krysten was seen today for follow up. Diagnoses and all orders for this visit: Nicotine dependence, uncomplicated, unspecified nicotine product type - Resolved; patient quit 2 months and is doing well without cravings and no desire to resume - Continued cessation encouraged - Counseling, education, support provided; reviewed precaution measures and when to seek additional care IgA mediated leukocytoclastic vasculitis (HCC) - Following with rheum; improving - Counseling, education, support provided; reviewed precaution measures and when to seek additional care Hypertension, unspecified type - Missing doses of lisinopril multiple times weekly - Uncontrolled - Strongly encouraged taking lisinopril everyday - Counseling, education, support provided; reviewed precaution measures and when to seek additional care Return in about 3 months (around 01/24/2025) for hypertension. Discussed the above with the patient using shared decision-making. The patient voiced understanding and agreed with the plan. 1. Nicotine dependence, uncomplicated, unspecified nicotine product type - ICD9: 305.1, ICD10: F17.200 (primary diagnosis) 2. IgA mediated leukocytoclastic vasculitis (HCC) - ICD9: 287.0, ICD10: D69.0 3. Hypertension, unspecified type - ICD9: 401.9, ICD10: I10 Medical Decision Making: Problems: Moderate: 2+ stable chronic illnesses Risk: Moderate: Drug management Medical Decision Making Level: 4 - Moderate Provider: Huy Marquez MD Date: October 26, 2024 documented in this encounter [facility] 10-25-2024 Telephone encounter Note Patient called back and rescheduled for tomorrow 10/26. Thanks! [facility] 10-25-2024 Miscellaneous Notes Patient called back and rescheduled for tomorrow 10/26. Thanks! Left a message for the patient to call the office back to see if he would like to re-schedule his appointment he missed today with Dr. Marquez. Thank you documented in this encounter [facility] 10-25-2024 Telephone encounter Note Left a message for the patient to call the office back to see if he would like to re-schedule his appointment he missed today with Dr. Marquez. Thank you [facility] 10-20-2024 Telephone encounter Note Patients mother in law Rivera called today. She wanted to confirm when his next appointment was. She was with patient so I spoke to him to make sure he was ok with me relaying the information to her and he said yes. He put Nicole back on the line and she was advised of the date/time. [facility] 10-20-2024 Miscellaneous Notes Patients mother in law Rivera called today. She wanted to confirm when his next appointment was. She was with patient so I spoke to him to make sure he was ok with me relaying the information to her and he said yes. He put Nicole back on the line and she was advised of the date/time. documented in this encounter [facility] 08-24-2024 Nurse Note DISCHARGE DRESSING APPLIED BY NANCY MASCORRO RN [facility] PER PROVIDER ORDER [facility] 08-24-2024 Nurse Note DISCHARGE DRESSING APPLIED BY NANCY MASCORRO RN [facility] PER PROVIDER ORDER WOUND ASSESSMENT COMPLETED BY SHABANA CROWDER RN. documented in this encounter [facility] 08-24-2024 Note HNO ID: [id number] Author: ROB ALBA DPM Service: ? Author Type: Physician Type: Progress Notes Filed: 08/24/2024 09:03 Note Text: Wound Care Progress Note Subjective: Patient presents with: Wound Check HISTORY of PRESENT ILLNESS HPI Krysten Crook is a 39 year old male who presents today for wound/ulcer evaluation. History of Wound Context: Vasculitis ulcer Wound/Ulcer Pain Timing/Severity: AMB ROOMING INTAKE FLOWSHEET DATA Pain Pain Level: 0 Patient seen today for follow-up of the right lower extremity ulceration that had not healed at last visit. Patient has been following our wound care instructions and denies any new complaints. Patient denies any nausea, vomiting, fever, chills. 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 PAST MEDICAL HISTORY Diagnosis Date Hypercholesterolemia PAST SURGICAL HISTORY Procedure Laterality Date DENTAL SURGERY HX Social History Tobacco Use Smoking status: Former Current packs/day: 0.00 Average packs/day: 0.5 packs/day for 10.0 years (5.0 ttl pk-yrs) Types: Cigarettes Start date: 2008 Quit date: 2019 Years since quittin.8 Smokeless tobacco: Former Types: Chew Quit date: 2021 Vaping Use Vaping status: current everyday user Substances: Nicotine Substance Use Topics Alcohol use: Yes Comment: occasional Drug use: Never ALLERGIES Allergen Reactions Keflex [Cephalexin] Hives Current Outpatient Medications on File Prior to Visit Medication Sig atorvastatin (LIPITOR) 20 mg tablet Take 20 mg by mouth once daily. lisinopril (ZESTRIL) 10 mg tablet Take 1 tablet by mouth every afternoon. No current facility-administered medications on file prior to visit. Objective: BP 110/83 Pulse 97 Temp 36.3 ?C (97.3 ?F) Resp 16 Last 3 Encounter Wt Readings: Date: Wt: 08/02/2024 129.6 kg (285 lb 11.5 oz) 07/13/2024 117.9 kg (260 lb) 07/07/2024 127.5 kg (281 lb) Physical Exam Compression Therapy: Bilateral, Compression Stockings Treatments/Procedures Compression Therapy: Bilateral, Compression Stockings Peripheral Vascular R Calf Circumference (cm): 42.5 cm L Calf Circumference (cm): 41.9 cm R Ankle Measurement (cm): 28.6 cm L Ankle Measurement (cm): 29.7 cm Lower Extremity Circulation Pulses Palpation - LEFT dorsal pedis pulse: +2 Pulses Palpation - RIGHT dorsal pedis pulse: +2 Pulses Palpation - LEFT dorsal pedis pulse: +2 Pulses Palpation - RIGHT dorsal pedis pulse: +2 Neuro: Epicritic sensations are intact bilaterally. No clonus is noted. Negative Babinski exam. Derm: Skin Condition/Temp: Warm (BLE). Patient has completely healed all ulcerations on the lower extremities bilaterally. Patient does have a pink petechial type of skin rash to the lower extremities bilaterally. [place] scars are noted where epithelialization of the previous ulcerations have occurred bilaterally. At this point there is no signs of vasculitis he is healed well. Ortho: LLE: Swelling Musculoskeletal LLE: Swelling RLE: Swelling Muscle strength are 5/5 for all groups bilaterally. There is no pain with palpation. No crepitation is noted. LABS: No results found for: CRP No results found for: WSR No results found for: INR No results found for: APTT No results found for: HBA1C MICROBIOLOGY: Positive Micro-30 Days No results found for the last 720 hours. IMAGING: Last XR Foot - Impression Only No resulted procedures found. Last XR Ankle - Impression Only No resulted procedures found. Last MRI Foot - Impression Only No resulted procedures found. Last MRI Ankle - Impression Only No resulted procedures found. Wound 07/13/24 0837 Atypical Wound Pretibial Right (Active) Properties Placement Date 07/13/24 Placement Time 0837 Location Pretibial (circumfirencial) Present on Original Admission Yes Wound Approximate Age at First Assessment (Weeks) 7 weeks Primary Wound Type Atypical Wound (IGA VASCULITIS) Wound Location Orientation Right Wound Description (Comments) [facility] Assessments 08/24/2024 8:00 AM Wound Image Wound Length (cm) 0 cm Wound Width (cm) 0 cm Wound Surface Area (cm2) 0 cm2 Wound Depth (cm) 0 cm Wound Volume (cm3) 0 cm3 Wound Healing % 100 Drainage Amount None Odor None Wound Bed Epithelium (%) 100 % Non-staged Wound Description Full thickness Procedures: No procedures today Assessment and Plan: Iga mediated leukocytoclastic vasculitis (hcc) (primary encounter diagnosis) 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 [facility] 08-24-2024 History of Present illness Narrative Images from the original note were not included. Wound Care Progress Note Subjective: Patient presents with: Wound Check HISTORY of PRESENT ILLNESS HPI Krysten Crook is a 39 year old male who presents today for wound/ulcer evaluation. History of Wound Context: Vasculitis ulcer Wound/Ulcer Pain Timing/Severity: AMB ROOMING INTAKE FLOWSHEET DATA Pain Pain Level: 0 Patient seen today for follow-up of the right lower extremity ulceration that had not healed at last visit. Patient has been following our wound care instructions and denies any new complaints. Patient denies any nausea, vomiting, fever, chills. 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 PAST MEDICAL HISTORY Diagnosis Date Hypercholesterolemia PAST SURGICAL HISTORY Procedure Laterality Date DENTAL SURGERY HX Social History Tobacco Use Smoking status: Former Current packs/day: 0.00 Average packs/day: 0.5 packs/day for 10.0 years (5.0 ttl pk-yrs) Types: Cigarettes Start date: 2008 Quit date: 2019 Years since quittin.8 Smokeless tobacco: Former Types: Chew Quit date: 2021 Vaping Use Vaping status: current everyday user Substances: Nicotine Substance Use Topics Alcohol use: Yes Comment: occasional Drug use: Never ALLERGIES Allergen Reactions Keflex [Cephalexin] Hives Current Outpatient Medications on File Prior to Visit Medication Sig atorvastatin (LIPITOR) 20 mg tablet Take 20 mg by mouth once daily. lisinopril (ZESTRIL) 10 mg tablet Take 1 tablet by mouth every afternoon. No current facility-administered medications on file prior to visit. Objective: BP 110/83 Pulse 97 Temp 36.3 C (97.3 F) Resp 16 Last 3 Encounter Wt Readings: Date: Wt: 08/02/2024 129.6 kg (285 lb 11.5 oz) 07/13/2024 117.9 kg (260 lb) 07/07/2024 127.5 kg (281 lb) Physical Exam Compression Therapy: Bilateral, Compression Stockings Treatments/Procedures Compression Therapy: Bilateral, Compression Stockings Peripheral Vascular R Calf Circumference (cm): 42.5 cm L Calf Circumference (cm): 41.9 cm R Ankle Measurement (cm): 28.6 cm L Ankle Measurement (cm): 29.7 cm Lower Extremity Circulation Pulses Palpation - LEFT dorsal pedis pulse: +2 Pulses Palpation - RIGHT dorsal pedis pulse: +2 Pulses Palpation - LEFT dorsal pedis pulse: +2 Pulses Palpation - RIGHT dorsal pedis pulse: +2 Neuro: Epicritic sensations are intact bilaterally. No clonus is noted. Negative Babinski exam. Derm: Skin Condition/Temp: Warm (BLE). Patient has completely healed all ulcerations on the lower extremities bilaterally. Patient does have a pink petechial type of skin rash to the lower extremities bilaterally. [place] scars are noted where epithelialization of the previous ulcerations have occurred bilaterally. At this point there is no signs of vasculitis he is healed well. Ortho: LLE: Swelling Musculoskeletal LLE: Swelling RLE: Swelling Muscle strength are 5/5 for all groups bilaterally. There is no pain with palpation. No crepitation is noted. LABS: No results found for: CRP No results found for: WSR No results found for: INR No results found for: APTT No results found for: HBA1C MICROBIOLOGY: Positive Micro-30 Days No results found for the last 720 hours. IMAGING: Last XR Foot - Impression Only No resulted procedures found. Last XR Ankle - Impression Only No resulted procedures found. Last MRI Foot - Impression Only No resulted procedures found. Last MRI Ankle - Impression Only No resulted procedures found. Wound 07/13/24 0837 Atypical Wound Pretibial Right (Active) Properties Placement Date 07/13/24 Placement Time 0837 Location Pretibial (circumfirencial) Present on Original Admission Yes Wound Approximate Age at First Assessment (Weeks) 7 weeks Primary Wound Type Atypical Wound (IGA VASCULITIS) Wound Location Orientation Right Wound Description (Comments) [facility] Assessments 08/24/2024 8:00 AM Wound Image Wound Length (cm) 0 cm Wound Width (cm) 0 cm Wound Surface Area (cm^2) 0 cm^2 Wound Depth (cm) 0 cm Wound Volume (cm^3) 0 cm^3 Wound Healing % 100 Drainage Amount None Odor None Wound Bed Epithelium (%) 100 % Non-staged Wound Description Full thickness Procedures: No procedures today Assessment and Plan: Iga mediated leukocytoclastic vasculitis (hcc) (primary encounter diagnosis) 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 Next ember he is going to continue with the lotion 2 times daily to the lower extremities sparing between the toes to help improve skin turgor. Patient can weight-bear as tolerated. No limitations to activities. Will have patient follow-up next week with his other physicians that had treated the vasculitis. He had mentioned that they may do some blood work. Advised him that it appears as though it has resolved but I agree we want a make sure that his kidneys and other organs are functioning properly. Patient advised to perform daily inspections of the lower extremities and call if any new ulcerations return. Will have him follow-up as needed at this point can discharge him from the wound center today. Treatment Note please see attached After Visit Summary Thank you for choosing [facility] and allowing us to help heal your wounds. SIGNATURE: Rob Alba DPM PATIENT NAME: Krysten Crook DATE: August 24, 2024 TIME: 8:54 AM documented in this encounter [facility] 08-24-2024 Instructions Barbara Barlow RN - 08/24/2024 8:49 AM EST HEALED RIGHT LOWER EXTREMITY ULCER: You may now take a bath or a shower with your healed ulcer uncovered/unprotected and resuming washing as normal. Apply moisturizing cream 1-2 x day, do not apply between your toes. Elevate your legs above the level of your heart and do ankle pumps and circles. Take 1/2 tab of a Multi-vitamin with zinc twice a day, Vitamin D3 5000 international unit(s) daily and eat high protein foods to help promote wound healing. Your ulcer(s) is(are) healed and you do not need to return to the [facility]. Please call if you have any problems or the ulcer reoccurs. documented in this encounter [facility] 08-24-2024 Nurse Note WOUND ASSESSMENT COMPLETED BY SHABANA CROWDER RN. [facility] 08-10-2024 Nurse Note DISCHARGE DRESSING APPLIED BY SHABANA CROWDER RN PER PROVIDER ORDER [facility] 08-10-2024 Nurse Note DISCHARGE DRESSING APPLIED BY SHABANA CROWDER RN PER PROVIDER ORDER WOUND ASSESSMENT COMPLETED BY SHABANA CROWDER RN documented in this encounter [facility] 08-10-2024 Note HNO ID: [id number] Author: ROB ALBA DPM Service: ? Author Type: Physician Type: Progress Notes Filed: 08/10/2024 08:53 Note Text: Wound Care Progress Note Subjective: Patient presents with: Wound Check HISTORY of PRESENT ILLNESS HPI Krysten Crook is a 39 year old male who presents today for wound/ulcer evaluation. History of Wound Context: Vasculitis ulcer Wound/Ulcer Pain Timing/Severity: AMB ROOMING INTAKE FLOWSHEET DATA Pain Pain Level: 0 Patient seen today for vasculitis ulcerations of the lower extremities bilaterally. He tolerated the dressings well. He denies any new complaints. Patient has been able to return to work without difficulty. He has been referred to a specialist in [place] to follow-up with his vasculitis. [facility] made the referral. PAST MEDICAL HISTORY Diagnosis Date Hypercholesterolemia PAST SURGICAL HISTORY Procedure Laterality Date DENTAL SURGERY HX Social History Tobacco Use Smoking status: Former Current packs/day: 0.00 Average packs/day: 0.5 packs/day for 10.0 years (5.0 ttl pk-yrs) Types: Cigarettes Start date: 2008 Quit date: 2018 Years since quittin.8 Smokeless tobacco: Former Types: Chew Quit date: 2021 Vaping Use Vaping status: current everyday user Substances: Nicotine Substance Use Topics Alcohol use: Yes Comment: occasional Drug use: Never ALLERGIES Allergen Reactions Keflex [Cephalexin] Hives Current Outpatient Medications on File Prior to Visit Medication Sig atorvastatin (LIPITOR) 20 mg tablet Take 20 mg by mouth once daily. lisinopril (ZESTRIL) 10 mg tablet Take 1 tablet by mouth every afternoon. No current facility-administered medications on file prior to visit. Objective: BP 120/85 Pulse 84 Temp 36.4 ?C (97.6 ?F) Resp 6 Last 3 Encounter Wt Readings: Date: Wt: 08/02/2024 129.6 kg (285 lb 11.5 oz) 07/13/2024 117.9 kg (260 lb) 07/07/2024 127.5 kg (281 lb) Physical Exam Compression Therapy: Bilateral, Double layer below the knee Treatments/Procedures Compression Therapy: Bilateral, Double layer below the knee Peripheral Vascular R Calf Circumference (cm): 43.2 cm L Calf Circumference (cm): 42.2 cm R Ankle Measurement (cm): 27.4 cm L Ankle Measurement (cm): 28.5 cm Lower Extremity Circulation Pulses Palpation - LEFT dorsal pedis pulse: +1 Pulses Palpation - RIGHT dorsal pedis pulse: +2 Pulses Palpation - LEFT dorsal pedis pulse: +1 Pulses Palpation - RIGHT dorsal pedis pulse: +2 Neuro: Epicritic sensations intact. No clonus is noted to the lower extremities bilaterally. Light touch sensations present. Derm: Skin Condition/Temp: Warm (ble). See picture and description of the ulceration on the right lower extremity below. The left lower extremity ulcerations have completely epithelialized and are well-healed. Patient does have some hyperpigmented scars as a result of the ulcer however the right lower extremity still has a full-thickness ulceration remaining over the lateral malleolus measuring 0.3 cm x 0.2 cm x 0.1 cm. Decreased from 69.3 cm? to 0.06 cm?. There is red granulation tissue with no necrotic tissue seen. Moderate serosanguineous drainage is present. No new ulcers. Large amount of epithelialization have occurred Ortho: LLE: Swelling Musculoskeletal LLE: Swelling RLE: Swelling No pain with palpation to the ulcer site. Muscle strength are normal to the lower extremities bilaterally. Patient is able to ambulate without problem LABS: No results found for: CRP No results found for: WSR No results found for: INR No results found for: APTT No results found for: HBA1C MICROBIOLOGY: Positive Micro-30 Days No results found for the last 720 hours. IMAGING: Last XR Foot - Impression Only No resulted procedures found. Last XR Ankle - Impression Only No resulted procedures found. Last MRI Foot - Impression Only No resulted procedures found. Last MRI Ankle - Impression Only No resulted procedures found. Wound 07/13/24 0837 Atypical Wound Pretibial Right (Active) Properties Placement Date 07/13/24 Placement Time 0837 Location Pretibial (circumfirencial) Present on Original Admission Yes Wound Approximate Age at First Assessment (Weeks) 7 weeks Primary Wound Type Atypical Wound (IGA VASCULITIS) Wound Location Orientation Right Wound Description (Comments) [facility] FT Assessments 08/10/2024 8:00 AM Wound Image Lorraine-Wound Assessment Dry;Hyperpigmented;Peeling;Scarr ed Wound Length (cm) 0.3 cm Wound Width (cm) 0.2 cm Wound Surface Area (cm2) 0.06 cm2 Wound Depth (cm) 0.1 cm Wound Volume (cm3) 0.006 cm3 Wound Healing % 100 Drainage Description Serosanguineous Drainage Amount Moderate (dried) Odor None Wound Bed Granulation (%) 100 % Non-staged Wound Description Full thickness Wound 07/13/24 0838 Atypical Wound Pretibial Left (Active) Properties Placement Date 07/13 (more content not included)... [facility] 08-10-2024 History of Present illness Narrative Images from the original note were not included. Wound Care Progress Note Subjective: Patient presents with: Wound Check HISTORY of PRESENT ILLNESS HPI Krysten Crook is a 39 year old male who presents today for wound/ulcer evaluation. History of Wound Context: Vasculitis ulcer Wound/Ulcer Pain Timing/Severity: AMB ROOMING INTAKE FLOWSHEET DATA Pain Pain Level: 0 Patient seen today for vasculitis ulcerations of the lower extremities bilaterally. He tolerated the dressings well. He denies any new complaints. Patient has been able to return to work without difficulty. He has been referred to a specialist in [place] to follow-up with his vasculitis. [facility] dermatology made the referral. PAST MEDICAL HISTORY Diagnosis Date Hypercholesterolemia PAST SURGICAL HISTORY Procedure Laterality Date DENTAL SURGERY HX Social History Tobacco Use Smoking status: Former Current packs/day: 0.00 Average packs/day: 0.5 packs/day for 10.0 years (5.0 ttl pk-yrs) Types: Cigarettes Start date: 2008 Quit date: 2018 Years since quittin.8 Smokeless tobacco: Former Types: Chew Quit date: 2021 Vaping Use Vaping status: current everyday user Substances: Nicotine Substance Use Topics Alcohol use: Yes Comment: occasional Drug use: Never ALLERGIES Allergen Reactions Keflex [Cephalexin] Hives Current Outpatient Medications on File Prior to Visit Medication Sig atorvastatin (LIPITOR) 20 mg tablet Take 20 mg by mouth once daily. lisinopril (ZESTRIL) 10 mg tablet Take 1 tablet by mouth every afternoon. No current facility-administered medications on file prior to visit. Objective: BP 120/85 Pulse 84 Temp 36.4 C (97.6 F) Resp 6 Last 3 Encounter Wt Readings: Date: Wt: 08/02/2024 129.6 kg (285 lb 11.5 oz) 07/13/2024 117.9 kg (260 lb) 07/07/2024 127.5 kg (281 lb) Physical Exam Compression Therapy: Bilateral, Double layer below the knee Treatments/Procedures Compression Therapy: Bilateral, Double layer below the knee Peripheral Vascular R Calf Circumference (cm): 43.2 cm L Calf Circumference (cm): 42.2 cm R Ankle Measurement (cm): 27.4 cm L Ankle Measurement (cm): 28.5 cm Lower Extremity Circulation Pulses Palpation - LEFT dorsal pedis pulse: +1 Pulses Palpation - RIGHT dorsal pedis pulse: +2 Pulses Palpation - LEFT dorsal pedis pulse: +1 Pulses Palpation - RIGHT dorsal pedis pulse: +2 Neuro: Epicritic sensations intact. No clonus is noted to the lower extremities bilaterally. Light touch sensations present. Derm: Skin Condition/Temp: Warm (ble). See picture and description of the ulceration on the right lower extremity below. The left lower extremity ulcerations have completely epithelialized and are well-healed. Patient does have some hyperpigmented scars as a result of the ulcer however the right lower extremity still has a full-thickness ulceration remaining over the lateral malleolus measuring 0.3 cm x 0.2 cm x 0.1 cm. Decreased from 69.3 cm to 0.06 cm . There is red granulation tissue with no necrotic tissue seen. Moderate serosanguineous drainage is present. No new ulcers. Large amount of epithelialization have occurred Ortho: LLE: Swelling Musculoskeletal LLE: Swelling RLE: Swelling No pain with palpation to the ulcer site. Muscle strength are normal to the lower extremities bilaterally. Patient is able to ambulate without problem LABS: No results found for: CRP No results found for: WSR No results found for: INR No results found for: APTT No results found for: HBA1C MICROBIOLOGY: Positive Micro-30 Days No results found for the last 720 hours. IMAGING: Last XR Foot - Impression Only No resulted procedures found. Last XR Ankle - Impression Only No resulted procedures found. Last MRI Foot - Impression Only No resulted procedures found. Last MRI Ankle - Impression Only No resulted procedures found. Wound 07/13/24 0837 Atypical Wound Pretibial Right (Active) Properties Placement Date 07/13/24 Placement Time 0837 Location Pretibial (circumfirencial) Present on Original Admission Yes Wound Approximate Age at First Assessment (Weeks) 7 weeks Primary Wound Type Atypical Wound (IGA VASCULITIS) Wound Location Orientation Right Wound Description (Comments) [facility] FT Assessments 08/10/2024 8:00 AM Wound Image Lorraine-Wound Assessment Dry;Hyperpigmented;Peeling;Scarr ed Wound Length (cm) 0.3 cm Wound Width (cm) 0.2 cm Wound Surface Area (cm^2) 0.06 cm^2 Wound Depth (cm) 0.1 cm Wound Volume (cm^3) 0.006 cm^3 Wound Healing % 100 Drainage Description Serosanguineous Drainage Amount Moderate (dried) Odor None Wound Bed Granulation (%) 100 % Non-staged Wound Description Full thickness Wound 07/13/24 08 Atypical Wound Pretibial Left (Active) Properties Placement Date 07/13/24 Placement Time 08 Location Pretibial (circumfirencial) Present on Original Admission Yes Wound Approximate Age at First Assessment (Weeks) 7 weeks Primary Wound Type Atypical Wound (IGA VASCULITIS) Wound Location Orientation Left Wound Description (Comments) [facility] FT Assessments 08/10/2024 8:00 AM Wound Image Wound Length (cm) 0 cm Wound Width (cm) 0 cm Wound Surface Area (cm^2) 0 cm^2 Wound Depth (cm) 0 cm Wound Volume (cm^3) 0 cm^3 Wound Healing % 100 Drainage Description Serosanguineous Drainage Amount Moderate (dried) Odor None Wound Bed Epithelium (%) 100 % Non-staged Wound Description Full thickness Procedures: No debridement Assessment and Plan: Iga mediated leukocytoclastic vasculitis (hcc) (primary encounter diagnosis) Non-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 (hcc) Non-pressure chronic ulcer of other part of left lower leg with fat layer exposed (hcc) Chronic venous hypertension (idiopathic) with ulcer of bilateral lower extremity (code) (hcc) Secondary lymphedema Physician Plan: Wound orders placed during this encounter I advised patient that he is healing well. At this point I will have him use the Thera honey pad on the ulcer on the right lower extremity and change every 2 to 3 days. He can tape this in place and put a Tubigrip stocking single compression over top of this dressing to help with edema. Patient is to apply lotion to the left lower extremity where the ulcers have healed. Sparing between the toes. He can apply this twice daily. Patient can continue to work and ambulate as tolerated. I encourage patient to follow-up with the vasculitis specialist in [place]. Patient is to call if he has any redness, pus, malodor or other signs of infection. He is healing well at this time. Treatment Note please see attached After Visit Summary Thank you for choosing [facility] and allowing us to help heal your wounds. SIGNATURE: Rob Alba DPM PATIENT NAME: Krysten Crook DATE: August 10, 2024 TIME: 8:39 AM documented in this encounter [facility] 08-10-2024 Nurse Note WOUND ASSESSMENT COMPLETED BY SHABANA CROWDER RN [facility] 08-10-2024 Instructions Barbara Barlow RN - 08/10/2024 8:05 AM EDT RIGHT LOWER EXTREMITY ULCER: SHOWER WITH YOUR DRESSING PROTECTED/COVERED CLEANSE ULCER WITH normal saline or vinegar solution (2 tablespoons of white vinegar in 1 Pint of distilled water) APPLY MOISTURIZING CREAM TO INTACT SKIN ON BOTH LEGS APPLY THERA HONEY FOAM TO ULCER, MAY TAPE IN PLACE CHANGE DRESSING EVERY OTHER DAY AND NEEDED APPLY SINGLE LAYER, HIGH STRENGTH TUBIGRIP TO BLE FROM THE BASE OF YOUR TOES TO JUST BELOW THE BEND IN YOUR KNEES. APPLY EARLY EVERY MORNING AND MAY REMOVE AT BEDTIME. Elevate your legs above the level of your heart and do ankle pumps and circles. Take 1/2 tab of a Multi-vitamin with zinc twice a day, Vitamin D3 5000 international unit(s) daily and eat high protein foods to help promote wound healing. Intake nurses to apply lidocaine viscous 2% to ulcer(s) qweek prior to debridement for pain control. If you have questions or concerns: Wednesday-Wednesday 8am-4:30pm, call the [facility] at [phone]. After 4:30pm, on weekends or holidays, call [facility] at [phone] and have the physician supervisor cap and hat production paged. documented in this encounter [facility] 08-03-2024 Nurse Note DISCHARGE DRESSING APPLIED BY SHABANA CROWDER RN and NAILA XIONG LPN CHT PER PROVIDER ORDER [facility] 08-03-2024 Nurse Note DISCHARGE DRESSING APPLIED BY SHABANA CROWDER RN and NAILA XIONG LPN CHT PER PROVIDER ORDER WOUND ASSESSMENT COMPLETED BY SUN MORRIS RN documented in this encounter [facility] 08-03-2024 Note HNO ID: [id number] Author: ROB ALBA DPM Service: ? Author Type: Physician Type: Progress Notes Filed: 08/03/2024 09:25 Note Text: Wound Care Progress Note Subjective: Patient presents with: Wound Care HISTORY of PRESENT ILLNESS HPI Krysten Crook is a 39 year old male who presents today for wound/ulcer evaluation. History of Wound Context: Vasculitis ulcer Wound/Ulcer Pain Timing/Severity: AMB ROOMING INTAKE FLOWSHEET DATA Patient seen today for bilateral lower extremity IgA vasculitis ulcerations. Patient states that he is doing quite well. Denies any new complaints. He is returned to work without problem and no pain. Patient tolerated the Coflex TLC wraps well. Been using Thera honey foam to the ulcers and then covering with the calamine 2 layer compression dressing system. This is worked well. PAST MEDICAL HISTORY Diagnosis Date Hypercholesterolemia PAST SURGICAL HISTORY Procedure Laterality Date DENTAL SURGERY HX Social History Tobacco Use Smoking status: Former Current packs/day: 0.00 Average packs/day: 0.5 packs/day for 10.0 years (5.0 ttl pk-yrs) Types: Cigarettes Start date: 2008 Quit date: 2019 Years since quittin.7 Smokeless tobacco: Former Types: Chew Quit date: 2021 Vaping Use Vaping status: current everyday user Substances: Nicotine Substance Use Topics Alcohol use: Yes Comment: occasional Drug use: Never ALLERGIES Allergen Reactions Keflex [Cephalexin] Hives Current Outpatient Medications on File Prior to Visit Medication Sig atorvastatin (LIPITOR) 20 mg tablet Take 20 mg by mouth once daily. lisinopril (ZESTRIL) 10 mg tablet Take 1 tablet by mouth every afternoon. No current facility-administered medications on file prior to visit. Objective: BP 135/83 Pulse 86 Temp 36.4 ?C (97.5 ?F) Resp 18 Last 3 Encounter Wt Readings: Date: Wt: 08/02/2024 129.6 kg (285 lb 11.5 oz) 07/13/2024 117.9 kg (260 lb) 07/07/2024 127.5 kg (281 lb) Physical Exam Compression Therapy: Bilateral, Double layer below the knee Treatments/Procedures Compression Therapy: Bilateral, Double layer below the knee Peripheral Vascular R Calf Circumference (cm): 43.5 cm L Calf Circumference (cm): 44 cm R Ankle Measurement (cm): 28.6 cm L Ankle Measurement (cm): 32 cm Lower Extremity Circulation Pulses Palpation - LEFT dorsal pedis pulse: +1 Pulses Palpation - RIGHT dorsal pedis pulse: +2 Pulses Palpation - LEFT dorsal pedis pulse: +1 Pulses Palpation - RIGHT dorsal pedis pulse: +2 Neuro: Epicritic sensations intact. No clonus noted. Derm: Skin Condition/Temp: Warm. See picture and description of the ulcerations below. There is significant epithelialization that has occurred over the past week for patient. He is healing quite well. The total square centimeters are greatly reduced. For the right lower extremity the square centimeter has reduced from 151.97 to 69.3 cm? and for the left lower extremity the ulceration is decreased from 144 cm? to 0.36 cm?. There is no erythema, purulent drainage or malodor noted. Scarring from the previous vasculitis noted. Ortho: LLE: Swelling Musculoskeletal LLE: Swelling RLE: Swelling No pain with palpation to the ulcerations. No crepitation noted. Muscle strength are normal to the lower extremities. LABS: No results found for: CRP No results found for: WSR No results found for: INR No results found for: APTT No results found for: HBA1C MICROBIOLOGY: Positive Micro-30 Days No results found for the last 720 hours. IMAGING: Last XR Foot - Impression Only No resulted procedures found. Last XR Ankle - Impression Only No resulted procedures found. Last MRI Foot - Impression Only No resulted procedures found. Last MRI Ankle - Impression Only No resulted procedures found. Wound 07/13/24 0837 Atypical Wound Pretibial Right (Active) Properties Placement Date 07/13/24 Placement Time 0837 Location Pretibial (circumfirencial) Present on Original Admission Yes Wound Approximate Age at First Assessment (Weeks) 7 weeks Primary Wound Type Atypical Wound (IGA VASCULITIS) Wound Location Orientation Right Wound Description (Comments) [facility] FT Assessments 08/03/2024 8:00 AM Wound Image Lorraine-Wound Assessment Scarred;Peeling;Hyperpigmented;M acerated;Dry Wound Length (cm) 16.5 cm (cluster) Wound Width (cm) 4.2 cm (cluster) Wound Surface Area (cm2) 69.3 cm2 Wound Depth (cm) 0.1 cm Wound Volume (cm3) 6.93 cm3 Wound Healing % 88 Drainage Description Serosanguineous Drainage Amount Large Odor None Wound Bed Granulation (%) 50 % Wound Bed Slough (%) 50 % Wound 07/13/24 0838 Atypical Wound Pretibial Left (Active) Properties Placement Date 07/13/24 Placement Time 08 Location Pretibial (circumfirencial) Present on Original Admission Yes Wound Approximate Age at First Assessment (Weeks) 7 weeks Primary Wound Type Atypical (more content not included)... [facility] 08-03-2024 History of Present illness Narrative Images from the original note were not included. Wound Care Progress Note Subjective: Patient presents with: Wound Care HISTORY of PRESENT ILLNESS HPI Krysten Crook is a 39 year old male who presents today for wound/ulcer evaluation. History of Wound Context: Vasculitis ulcer Wound/Ulcer Pain Timing/Severity: AMB ROOMING INTAKE FLOWSHEET DATA Patient seen today for bilateral lower extremity IgA vasculitis ulcerations. Patient states that he is doing quite well. Denies any new complaints. He is returned to work without problem and no pain. Patient tolerated the Coflex TLC wraps well. Been using Thera honey foam to the ulcers and then covering with the calamine 2 layer compression dressing system. This is worked well. PAST MEDICAL HISTORY Diagnosis Date Hypercholesterolemia PAST SURGICAL HISTORY Procedure Laterality Date DENTAL SURGERY HX Social History Tobacco Use Smoking status: Former Current packs/day: 0.00 Average packs/day: 0.5 packs/day for 10.0 years (5.0 ttl pk-yrs) Types: Cigarettes Start date: 2008 Quit date: 2019 Years since quittin.7 Smokeless tobacco: Former Types: Chew Quit date: 2021 Vaping Use Vaping status: current everyday user Substances: Nicotine Substance Use Topics Alcohol use: Yes Comment: occasional Drug use: Never ALLERGIES Allergen Reactions Keflex [Cephalexin] Hives Current Outpatient Medications on File Prior to Visit Medication Sig atorvastatin (LIPITOR) 20 mg tablet Take 20 mg by mouth once daily. lisinopril (ZESTRIL) 10 mg tablet Take 1 tablet by mouth every afternoon. No current facility-administered medications on file prior to visit. Objective: BP 135/83 Pulse 86 Temp 36.4 C (97.5 F) Resp 18 Last 3 Encounter Wt Readings: Date: Wt: 08/02/2024 129.6 kg (285 lb 11.5 oz) 07/13/2024 117.9 kg (260 lb) 07/07/2024 127.5 kg (281 lb) Physical Exam Compression Therapy: Bilateral, Double layer below the knee Treatments/Procedures Compression Therapy: Bilateral, Double layer below the knee Peripheral Vascular R Calf Circumference (cm): 43.5 cm L Calf Circumference (cm): 44 cm R Ankle Measurement (cm): 28.6 cm L Ankle Measurement (cm): 32 cm Lower Extremity Circulation Pulses Palpation - LEFT dorsal pedis pulse: +1 Pulses Palpation - RIGHT dorsal pedis pulse: +2 Pulses Palpation - LEFT dorsal pedis pulse: +1 Pulses Palpation - RIGHT dorsal pedis pulse: +2 Neuro: Epicritic sensations intact. No clonus noted. Derm: Skin Condition/Temp: Warm. See picture and description of the ulcerations below. There is significant epithelialization that has occurred over the past week for patient. He is healing quite well. The total square centimeters are greatly reduced. For the right lower extremity the square centimeter has reduced from 151.97 to 69.3 cm and for the left lower extremity the ulceration is decreased from 144 cm to 0.36 cm . There is no erythema, purulent drainage or malodor noted. Scarring from the previous vasculitis noted. Ortho: LLE: Swelling Musculoskeletal LLE: Swelling RLE: Swelling No pain with palpation to the ulcerations. No crepitation noted. Muscle strength are normal to the lower extremities. LABS: No results found for: CRP No results found for: WSR No results found for: INR No results found for: APTT No results found for: HBA1C MICROBIOLOGY: Positive Micro-30 Days No results found for the last 720 hours. IMAGING: Last XR Foot - Impression Only No resulted procedures found. Last XR Ankle - Impression Only No resulted procedures found. Last MRI Foot - Impression Only No resulted procedures found. Last MRI Ankle - Impression Only No resulted procedures found. Wound 07/13/24 0837 Atypical Wound Pretibial Right (Active) Properties Placement Date 07/13/24 Placement Time 0837 Location Pretibial (circumfirencial) Present on Original Admission Yes Wound Approximate Age at First Assessment (Weeks) 7 weeks Primary Wound Type Atypical Wound (IGA VASCULITIS) Wound Location Orientation Right Wound Description (Comments) [facility] Assessments 08/03/2024 8:00 AM Wound Image Lorraine-Wound Assessment Scarred;Peeling;Hyperpigmented;M acerated;Dry Wound Length (cm) 16.5 cm (cluster) Wound Width (cm) 4.2 cm (cluster) Wound Surface Area (cm^2) 69.3 cm^2 Wound Depth (cm) 0.1 cm Wound Volume (cm^3) 6.93 cm^3 Wound Healing % 88 Drainage Description Serosanguineous Drainage Amount Large Odor None Wound Bed Granulation (%) 50 % Wound Bed Slough (%) 50 % Wound 07/13/24 0838 Atypical Wound Pretibial Left (Active) Properties Placement Date 07/13/24 Placement Time 0838 Location Pretibial (circumfirencial) Present on Original Admission Yes Wound Approximate Age at First Assessment (Weeks) 7 weeks Primary Wound Type Atypical Wound (IGA VASCULITIS) Wound Location Orientation Left Wound Description (Comments) [facility] Assessments 08/03/2024 8:00 AM Wound Image Lorraine-Wound Assessment Dry;Hyperpigmented;Peeling;Scarr ed;Macerated Wound Length (cm) 0.6 cm Wound Width (cm) 0.6 cm Wound Surface Area (cm^2) 0.36 cm^2 Wound Depth (cm) 0.1 cm Wound Volume (cm^3) 0.036 cm^3 Wound Healing % 100 Drainage Description Serosanguineous Drainage Amount Large Odor None Wound Bed Granulation (%) 95 % Wound Bed Slough (%) 5 % Procedures: No debridement performed Assessment and Plan: Iga mediated leukocytoclastic vasculitis (hcc) (primary encounter diagnosis) 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 This point organ to continue the therapy of the Thera honey pad to the ulceration and then covering with a foam and Coflex TLC wrap with calamine lotion. Elevate legs frequently performing ankle pumps and circles multiple times daily. Continue with the dietary recommendations of a high-protein diet, multivitamin zinc and vitamin D3 for nutrition. Patient is to call if there are questions or concerns. At this point he is healing quite well. I suspect to heal without much problem Treatment Note please see attached After Visit Summary Thank you for choosing [facility] and allowing us to help heal your wounds. SIGNATURE: Rob Alba DPM PATIENT NAME: Krysten Crook DATE: August 03, 2024 TIME: 9:09 AM documented in this encounter [facility] 08-03-2024 Instructions Nancy Mascorro RN - 08/03/2024 8:59 AM EDT RIGHT LOWER EXTREMITY AND LEFT LOWER EXTREMITY ULCERS: Shower with dressing protected/covered Cleanse ulcers with normal saline Apply betamethasone cream to intact skin Apply THERA HONEY FOAM to ulcers Cover with non adhesive foam as needed Apply 2 layer compression bandage system Calamine May pad ankle/achilles with felt/foam or cast padding as needed Change weekly at [facility] and as needed If problems with compression and you are instructed, remove compression wrap, cleanse the ulcer with saline, apply steroid cream, cover with dry gauze and change dressing 2xday. Elevate your legs above the level of your heart and do ankle pumps and circles. Take 1/2 tab of a Multi-vitamin with zinc twice a day, Vitamin D3 5000 international unit(s) daily and eat high protein foods to help promote wound healing. Intake nurses to apply lidocaine viscous 2% to ulcer(s) qweek prior to debridement for pain control. If you have questions or concerns: Wednesday-Wednesday 8am-4:30pm, call the [facility] at [phone]. After 4:30pm, on weekends or holidays, call [facility] at [phone] and have the physician supervisor cap and hat production paged. documented in this encounter [facility] 08-03-2024 Nurse Note WOUND ASSESSMENT COMPLETED BY SUN MORRIS RN [facility] 08-02-2024 Note HNO ID: [id number] Author: HUY MARQUEZ MD Service: ? Author Type: Physician Type: Progress Notes Filed: 08/02/2024 21:02 Note Text: Huy Marquez MD [address] [place] [address] Dept: [phone] Dept Visit Date: August 02, 2024 Name: Krysten Crook Date of : 1985 MRN/E #: [id number] Subjective Chief Complaint: New Patient (Pt here to establish with a new pcp. ) Subjective Krysten Crook is a 39 year old male here for annual preventative patient visit and also has the following concern(s): - Presenting with - No concerns or questions today Active Non-Hospital Problems Diagnosis Class 3 severe obesity without serious comorbidity in adult (HCC) Hypertension Hypercholesterolemia IgA mediated leukocytoclastic vasculitis (HCC) Nicotine dependence, uncomplicated PAST MEDICAL HISTORY Diagnosis Date Hypercholesterolemia PAST SURGICAL HISTORY Procedure Laterality Date DENTAL SURGERY HX FAMILY HISTORY Problem Relation Age of Onset Cancer Maternal Grandfather Hypertension Maternal Grandfather Diabetes Maternal Grandfather Social History Tobacco Use Smoking status: Former Current packs/day: 0.00 Average packs/day: 0.5 packs/day for 10.0 years (5.0 ttl pk-yrs) Types: Cigarettes Start date: 2008 Quit date: 2019 Years since quittin.7 Smokeless tobacco: Former Types: Chew Quit date: 2021 Vaping Use Vaping status: current everyday user Substances: Nicotine Substance Use Topics Alcohol use: Yes Comment: occasional Drug use: Never reports being sexually active and has had partner(s) who are female. He reports using the following method of control/protection: Surgical. Employer And Job Title: No employer specified (work for [employer]) Years Of Education Completed: GED years Marital Status: to corie with no children Social History Social History Narrative - Physical activity: goes to gym - Life goals: visit [place] - Passions: swimming - Finds support from - Lives with and mother in law - Animal exposure: cat - Denies utility, transportation, housing, or food insecurities - Denies current or prior history of violence, trauma, or abuse ALLERGIES Allergen Reactions Keflex [Cephalexin] Hives Current Outpatient Medications Medication Sig atorvastatin (LIPITOR) 20 mg tablet Take 20 mg by mouth once daily. lisinopril (ZESTRIL) 10 mg tablet Take 1 tablet by mouth every afternoon. No current facility-administered medications for this visit. Objective Objective 08/02/2491008/02/24915 BP: 135/93 125/86 Pulse: 79 SpO2: 97% Weight: 129.6 kg (285 lb 11.5 oz) Body mass index is 43.44 kg/m?. Last 3 Encounter BP Readings: Date: BP: 08/02/2024 125/86 07/27/2024 137/94[pt asyptomatic[ 07/20/2024 119/86 Last 3 Encounter Wt Readings: Date: Wt: 08/02/2024 129.6 kg (285 lb 11.5 oz) 07/13/2024 117.9 kg (260 lb) 07/07/2024 127.5 kg (281 lb) Physical Exam Vitals and nursing note reviewed. Constitutional: General: He is not in acute distress. HENT: Head: Normocephalic and atraumatic. Eyes: Conjunctiva/sclera: Conjunctivae normal. Cardiovascular: Rate and Rhythm: Normal rate and regular rhythm. Heart sounds: No murmur heard. No friction rub. No gallop. Pulmonary: Effort: Pulmonary effort is normal. No respiratory distress. Breath sounds: Normal breath sounds. No stridor. No wheezing, rhonchi or rales. Abdominal: General: There is no distension. Palpations: Abdomen is soft. There is no mass. Tenderness: There is no abdominal tenderness. Musculoskeletal: Comments: Bilateral lower extremities wrapped Skin: General: Skin is warm and dry. Coloration: Skin is not jaundiced. Neurological: General: No focal deficit present. Mental Status: He is alert. Assessment / Plan Krysten was seen today for new patient. Diagnoses and all orders for this visit: Wellness examination - I have reviewed the problem list with the patient and updated as necessary. - I have reviewed the medical, surgical, and family histories with the patient and updated as necessary. - I have reviewed the substance use, sexual activity, socioeconomic, and social documentation histories with the patient and updated as necessary. - I have reviewed the allergy list with the patient and updated as necessary. - I have reviewed the medication list with the patient and updated as necessary. Screening for depression Encounter for screening examination for other mental health and behavioral disorders - PHQ2 score of 0 today - GAD2 score of 0 today - Not at risk for unipolar depression - Not at risk for generalized anxiety disorder - No further intervention at this time Encounter for immunization - Declining recommended tetanus, influenza, and COVID-19 vaccination(s) at this time (more content not included)... [facility] 08-02-2024 History of Present illness Narrative Images from the original note were not included. Huy Marquez MD [address] [place] [address] Dept: [phone] Dept Visit Date: August 02, 2024 Name: Krysten Crook Date of : 1985 MRN/E #: [id number] Subjective Chief Complaint: New Patient (Pt here to establish with a new pcp. ) Subjective Krysten Crook is a 39 year old male here for annual preventative patient visit and also has the following concern(s): - Presenting with - No concerns or questions today Active Non-Hospital Problems Diagnosis Class 3 severe obesity without serious comorbidity in adult (HCC) Hypertension Hypercholesterolemia IgA mediated leukocytoclastic vasculitis (HCC) Nicotine dependence, uncomplicated PAST MEDICAL HISTORY Diagnosis Date Hypercholesterolemia PAST SURGICAL HISTORY Procedure Laterality Date DENTAL SURGERY HX FAMILY HISTORY Problem Relation Age of Onset Cancer Maternal Grandfather Hypertension Maternal Grandfather Diabetes Maternal Grandfather Social History Tobacco Use Smoking status: Former Current packs/day: 0.00 Average packs/day: 0.5 packs/day for 10.0 years (5.0 ttl pk-yrs) Types: Cigarettes Start date: 2008 Quit date: 2019 Years since quittin.7 Smokeless tobacco: Former Types: Chew Quit date: 2021 Vaping Use Vaping status: current everyday user Substances: Nicotine Substance Use Topics Alcohol use: Yes Comment: occasional Drug use: Never reports being sexually active and has had partner(s) who are female. He reports using the following method of control/protection: Surgical. Employer And Job Title: No employer specified (work for [employer]) Years Of Education Completed: GED years Marital Status: to corie with no children Social History Social History Narrative - Physical activity: goes to gym - Life goals: visit [place] - Passions: swimming - Finds support from - Lives with and mother in law - Animal exposure: cat - Denies utility, transportation, housing, or food insecurities - Denies current or prior history of violence, trauma, or abuse ALLERGIES Allergen Reactions Keflex [Cephalexin] Hives Current Outpatient Medications Medication Sig atorvastatin (LIPITOR) 20 mg tablet Take 20 mg by mouth once daily. lisinopril (ZESTRIL) 10 mg tablet Take 1 tablet by mouth every afternoon. No current facility-administered medications for this visit. Objective Objective 08/02/2411 08/02/2416 BP: 135/93 125/86 Pulse: 79 SpO2: 97% Weight: 129.6 kg (285 lb 11.5 oz) Body mass index is 43.44 kg/m . Last 3 Encounter BP Readings: Date: BP: 08/02/2024 125/86 07/27/2024 137/94[pt asyptomatic[ 07/20/2024 119/86 Last 3 Encounter Wt Readings: Date: Wt: 08/02/2024 129.6 kg (285 lb 11.5 oz) 07/13/2024 117.9 kg (260 lb) 07/07/2024 127.5 kg (281 lb) Physical Exam Vitals and nursing note reviewed. Constitutional: General: He is not in acute distress. HENT: Head: Normocephalic and atraumatic. Eyes: Conjunctiva/sclera: Conjunctivae normal. Cardiovascular: Rate and Rhythm: Normal rate and regular rhythm. Heart sounds: No murmur heard. No friction rub. No gallop. Pulmonary: Effort: Pulmonary effort is normal. No respiratory distress. Breath sounds: Normal breath sounds. No stridor. No wheezing, rhonchi or rales. Abdominal: General: There is no distension. Palpations: Abdomen is soft. There is no mass. Tenderness: There is no abdominal tenderness. Musculoskeletal: Comments: Bilateral lower extremities wrapped Skin: General: Skin is warm and dry. Coloration: Skin is not jaundiced. Neurological: General: No focal deficit present. Mental Status: He is alert. Assessment / Plan Krysten was seen today for new patient. Diagnoses and all orders for this visit: Wellness examination - I have reviewed the problem list with the patient and updated as necessary. - I have reviewed the medical, surgical, and family histories with the patient and updated as necessary. - I have reviewed the substance use, sexual activity, socioeconomic, and social documentation histories with the patient and updated as necessary. - I have reviewed the allergy list with the patient and updated as necessary. - I have reviewed the medication list with the patient and updated as necessary. Screening for depression Encounter for screening examination for other mental health and behavioral disorders - PHQ2 score of 0 today - GAD2 score of 0 today - Not at risk for unipolar depression - Not at risk for generalized anxiety disorder - No further intervention at this time Encounter for immunization - Declining recommended tetanus, influenza, and COVID-19 vaccination(s) at this time - Counseling, education, support provided Nicotine dependence, uncomplicated, unspecified nicotine product type - Vapes nicotine daily - Cessation encouraged; counseling, education, support provided IgA mediated leukocytoclastic vasculitis (HCC) - Biopsy proven - Previously followed with derm and rheum - Currently following with wound clinic - Improving - No signs of systemic involvement - Continue following with wound clinic - Counseling, education, support provided; reviewed precaution measures and when to seek additional care Return in about 3 months (around 11/02/2024) for vasculitis. Discussed the above with the patient using shared decision-making. The patient voiced understanding and agreed with the plan. 1. Wellness examination - ICD9: V70.0, ICD10: Z00.00 (primary diagnosis) 2. Screening for depression - ICD9: V79.0, ICD10: Z13.31 3. Encounter for screening examination for other mental health and behavioral disorders - ICD9: V79.8, ICD10: Z13.39 4. Encounter for immunization - ICD9: V03.89, ICD10: Z23 5. Nicotine dependence, uncomplicated, unspecified nicotine product type - ICD9: 305.1, ICD10: F17.200 6. IgA mediated leukocytoclastic vasculitis (HCC) - ICD9: 287.0, ICD10: D69.0 Provider: Huy Marquez MD Date: August 02, 2024 documented in this encounter [facility] 07-27-2024 Nurse Note DISCHARGE DRESSING APPLIED BY NAILA XIONG LPN CHT PER PROVIDER ORDER [facility] 07-27-2024 Nurse Note DISCHARGE DRESSING APPLIED BY NAILA XIONG LPN CHT PER PROVIDER ORDER WOUND ASSESSMENT COMPLETED BY MELQUIADES BERRIOS LPN documented in this encounter [facility] 07-27-2024 Note HNO ID: [id number] Author: ROB ALBA DPM Service: ? Author Type: Physician Type: Progress Notes Filed: 07/27/2024 09:28 Note Text: Wound Care Progress Note Subjective: Patient presents with: Wound Care HISTORY of PRESENT ILLNESS HPI Krysten Crook is a 39 year old male who presents today for wound/ulcer evaluation. History of Wound Context: Autoimmune vasculitis ulcer Wound/Ulcer Pain Timing/Severity: AMB ROOMING INTAKE FLOWSHEET DATA Pain Pain Level: 1 Pain Location: (right and left leg) Description: (itchy) Frequency: Intermittent Intervention/Comfort measure: (tap the dressing) Patient seen today for follow-up of bilateral lower extremity ulcerations. He tolerated the Thera honey pads with thick Coflex wraps. He denies any new complaints and states he is doing great. He feels like the ulcers are improving PAST MEDICAL HISTORY Diagnosis Date Essential hypertension Hypercholesterolemia Vasculitis (HCC) PAST SURGICAL HISTORY Procedure Laterality Date DENTAL SURGERY HX NONE 07/07/2024 Social History Tobacco Use Smoking status: Never Smokeless tobacco: Current Tobacco comments: VAPES ALLERGIES Allergen Reactions Keflex [Cephalexin] Hives Current Outpatient Medications on File Prior to Visit Medication Sig atorvastatin (LIPITOR) 20 mg tablet Take 20 mg by mouth once daily. lisinopril (ZESTRIL) 10 mg tablet Take 1 tablet by mouth every afternoon. No current facility-administered medications on file prior to visit. Objective: BP 137/94 Pulse 73 Temp 36.4 ?C (97.6 ?F) Resp 18 Last 3 Encounter Wt Readings: Date: Wt: 07/13/2024 117.9 kg (260 lb) 07/07/2024 127.5 kg (281 lb) 06/24/2024 128.5 kg (283 lb 4.7 oz) Physical Exam Compression Therapy: Bilateral, Double layer below the knee Treatments/Procedures Compression Therapy: Bilateral, Double layer below the knee Peripheral Vascular R Calf Circumference (cm): 43.7 cm L Calf Circumference (cm): 42.5 cm R Ankle Measurement (cm): 29.8 cm L Ankle Measurement (cm): 28.5 cm Lower Extremity Circulation Pulses Palpation - LEFT dorsal pedis pulse: +2 Pulses Palpation - RIGHT dorsal pedis pulse: +2 Pulses Palpation - LEFT dorsal pedis pulse: +2 Pulses Palpation - RIGHT dorsal pedis pulse: +2 Neuro: Epicritic sensations intact. No clonus noted. This is bilaterally Derm: Skin Condition/Temp: Warm. See picture and description of the ulcerations on bilateral lower extremities below. Patient has decreased square centimeter size. The right lower extremity ulceration decreased from 549.48 cm? to 151.97 cm?. The left lower extremity ulceration also decreased in size from 445.2 cm? to 144 cm?. Patient has large amount of serosanguineous drainage. There is increased granulation tissue in these ulcers with no signs of infection today. Musculoskeletal LLE: Swelling RLE: Swelling Muscle strength are normal to the lower extremities. Mild pain with just direct pressure to the ulcer. This is minimal. No crepitation bilaterally LABS: No results found for: CRP No results found for: WSR No results found for: INR No results found for: APTT No results found for: HBA1C MICROBIOLOGY: Positive Micro-30 Days No results found for the last 720 hours. IMAGING: Last XR Foot - Impression Only No resulted procedures found. Last XR Ankle - Impression Only No resulted procedures found. Last MRI Foot - Impression Only No resulted procedures found. Last MRI Ankle - Impression Only No resulted procedures found. Wound 07/13/24 0837 Atypical Wound Pretibial Right (Active) Properties Placement Date 07/13/24 Placement Time 0837 Location Pretibial (circumfirencial) Present on Original Admission Yes Wound Approximate Age at First Assessment (Weeks) 7 weeks Primary Wound Type Atypical Wound (IGA VASCULITIS) Wound Location Orientation Right Wound Description (Comments) [facility] Assessments 07/27/2024 8:00 AM Wound Image Lorraine-Wound Assessment Dry;Peeling;Hyperpigmented;Purpl e;Scarred Wound Length (cm) 16.7 cm Wound Width (cm) 9.1 cm Wound Surface Area (cm2) 151.97 cm2 Wound Depth (cm) 0.1 cm Wound Volume (cm3) 15.197 cm3 Wound Healing % 74 Drainage Description Serosanguineous Drainage Amount Large (with strike through) Odor None Wound Bed Granulation (%) 60 % (hypergranulated in a few areas) Wound Bed Slough (%) 40 % Non-staged Wound Description Full thickness Wound 07/13/24 0838 Atypical Wound Pretibial Left (Active) Properties Placement Date 07/13/24 Placement Time 0838 Location Pretibial (circumfirencial) Present on Original Admission Yes Wound Approximate Age at First Assessment (Weeks) 7 weeks Primary Wound Type Atypical Wound (IGA VASCULITIS) Wound Location Orientation Left Wound Description (Comments) [facility] Assessments 07/27/2024 8:00 AM Wound Image Lorraine-Wound Assessment Dry;Hyperpigmented;Purple;Peelin g;Scarred (more content not included)... [facility] 07-27-2024 History of Present illness Narrative Images from the original note were not included. Wound Care Progress Note Subjective: Patient presents with: Wound Care HISTORY of PRESENT ILLNESS HPI Krysten Crook is a 39 year old male who presents today for wound/ulcer evaluation. History of Wound Context: Autoimmune vasculitis ulcer Wound/Ulcer Pain Timing/Severity: AMB ROOMING INTAKE FLOWSHEET DATA Pain Pain Level: 1 Pain Location: (right and left leg) Description: (itchy) Frequency: Intermittent Intervention/Comfort measure: (tap the dressing) Patient seen today for follow-up of bilateral lower extremity ulcerations. He tolerated the Thera honey pads with thick Coflex wraps. He denies any new complaints and states he is doing great. He feels like the ulcers are improving PAST MEDICAL HISTORY Diagnosis Date Essential hypertension Hypercholesterolemia Vasculitis (HCC) PAST SURGICAL HISTORY Procedure Laterality Date DENTAL SURGERY HX NONE 07/07/2024 Social History Tobacco Use Smoking status: Never Smokeless tobacco: Current Tobacco comments: VAPES ALLERGIES Allergen Reactions Keflex [Cephalexin] Hives Current Outpatient Medications on File Prior to Visit Medication Sig atorvastatin (LIPITOR) 20 mg tablet Take 20 mg by mouth once daily. lisinopril (ZESTRIL) 10 mg tablet Take 1 tablet by mouth every afternoon. No current facility-administered medications on file prior to visit. Objective: BP 137/94 Pulse 73 Temp 36.4 C (97.6 F) Resp 18 Last 3 Encounter Wt Readings: Date: Wt: 07/13/2024 117.9 kg (260 lb) 07/07/2024 127.5 kg (281 lb) 06/24/2024 128.5 kg (283 lb 4.7 oz) Physical Exam Compression Therapy: Bilateral, Double layer below the knee Treatments/Procedures Compression Therapy: Bilateral, Double layer below the knee Peripheral Vascular R Calf Circumference (cm): 43.7 cm L Calf Circumference (cm): 42.5 cm R Ankle Measurement (cm): 29.8 cm L Ankle Measurement (cm): 28.5 cm Lower Extremity Circulation Pulses Palpation - LEFT dorsal pedis pulse: +2 Pulses Palpation - RIGHT dorsal pedis pulse: +2 Pulses Palpation - LEFT dorsal pedis pulse: +2 Pulses Palpation - RIGHT dorsal pedis pulse: +2 Neuro: Epicritic sensations intact. No clonus noted. This is bilaterally Derm: Skin Condition/Temp: Warm. See picture and description of the ulcerations on bilateral lower extremities below. Patient has decreased square centimeter size. The right lower extremity ulceration decreased from 549.48 cm to 151.97 cm . The left lower extremity ulceration also decreased in size from 445.2 cm to 144 cm . Patient has large amount of serosanguineous drainage. There is increased granulation tissue in these ulcers with no signs of infection today. Musculoskeletal LLE: Swelling RLE: Swelling Muscle strength are normal to the lower extremities. Mild pain with just direct pressure to the ulcer. This is minimal. No crepitation bilaterally LABS: No results found for: CRP No results found for: WSR No results found for: INR No results found for: APTT No results found for: HBA1C MICROBIOLOGY: Positive Micro-30 Days No results found for the last 720 hours. IMAGING: Last XR Foot - Impression Only No resulted procedures found. Last XR Ankle - Impression Only No resulted procedures found. Last MRI Foot - Impression Only No resulted procedures found. Last MRI Ankle - Impression Only No resulted procedures found. Wound 07/13/24 0837 Atypical Wound Pretibial Right (Active) Properties Placement Date 07/13/24 Placement Time 0837 Location Pretibial (circumfirencial) Present on Original Admission Yes Wound Approximate Age at First Assessment (Weeks) 7 weeks Primary Wound Type Atypical Wound (IGA VASCULITIS) Wound Location Orientation Right Wound Description (Comments) [facility] Assessments 07/27/2024 8:00 AM Wound Image Lorraine-Wound Assessment Dry;Peeling;Hyperpigmented;Purpl e;Scarred Wound Length (cm) 16.7 cm Wound Width (cm) 9.1 cm Wound Surface Area (cm^2) 151.97 cm^2 Wound Depth (cm) 0.1 cm Wound Volume (cm^3) 15.197 cm^3 Wound Healing % 74 Drainage Description Serosanguineous Drainage Amount Large (with strike through) Odor None Wound Bed Granulation (%) 60 % (hypergranulated in a few areas) Wound Bed Slough (%) 40 % Non-staged Wound Description Full thickness Wound 07/13/24 0838 Atypical Wound Pretibial Left (Active) Properties Placement Date 07/13/24 Placement Time 08 Location Pretibial (circumfirencial) Present on Original Admission Yes Wound Approximate Age at First Assessment (Weeks) 7 weeks Primary Wound Type Atypical Wound (IGA VASCULITIS) Wound Location Orientation Left Wound Description (Comments) [facility] Assessments 07/27/2024 8:00 AM Wound Image Lorraine-Wound Assessment Dry;Hyperpigmented;Purple;Peelin g;Scarred Wound Length (cm) 16 cm Wound Width (cm) 9 cm Wound Surface Area (cm^2) 144 cm^2 Wound Depth (cm) 0.1 cm Wound Volume (cm^3) 14.4 cm^3 Wound Healing % 69 Drainage Description Serosanguineous Drainage Amount Large (with strike through) Odor None Wound Bed Granulation (%) 70 % (hypergranulated) Wound Bed Slough (%) 30 % Non-staged Wound Description Full thickness Procedures: No debridement performed Assessment and Plan: Iga mediated leukocytoclastic vasculitis (hcc) (primary encounter diagnosis) 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 At this point I do not want to change treatment. Will continue with the Thera honey pad to the ulcerations cover the Coflex wrap. Patient to keep this compression dressing dry, clean, and intact. Elevate legs frequently performing ankle pumps and circles multiple times daily. Patient is to call if he has any redness, pus, malodor, nausea, vomiting, fever, chills or other signs of infection. Continue with dietary recommendations such as a high-protein diet, multivitamin zinc and vitamin D3 Treatment Note please see attached After Visit Summary Thank you for choosing [facility] and allowing us to help heal your wounds. SIGNATURE: Rob Alba DPM PATIENT NAME: Krysten Crook DATE: July 27, 2024 TIME: 9:04 AM documented in this encounter [facility] 07-27-2024 Instructions Barbara Barlow RN - 07/27/2024 8:52 AM EDT RIGHT LOWER EXTREMITY AND LEFT LOWER EXTREMITY ULCERS: Shower with dressing protected/covered Cleanse ulcers with normal saline Apply betamethasone cream to intact skin Apply THERA HONEY FOAM to ulcers Cover with non adhesive foam as needed Apply 2 layer compression bandage system Calamine May pad ankle/achilles with felt/foam or cast padding as needed Change weekly at [facility] and as needed If problems with compression and you are instructed, remove compression wrap, cleanse the ulcer with saline, apply steroid cream, cover with dry gauze and change dressing 2xday. Elevate your legs above the level of your heart and do ankle pumps and circles. Take 1/2 tab of a Multi-vitamin with zinc twice a day, Vitamin D3 5000 international unit(s) daily and eat high protein foods to help promote wound healing. Intake nurses to apply lidocaine viscous 2% to ulcer(s) qweek prior to debridement for pain control. If you have questions or concerns: Wednesday-Wednesday 8am-4:30pm, call the [facility] at [phone]. After 4:30pm, on weekends or holidays, call [facility] at [phone] and have the physician supervisor cap and hat production paged. documented in this encounter [facility] 07-27-2024 Nurse Note WOUND ASSESSMENT COMPLETED BY MELQUIADES BERRIOS LPN [facility] 07-20-2024 Nurse Note DISCHARGE DRESSING APPLIED BY NANCY SHER PER PROVIDER ORDER [facility] 07-20-2024 Nurse Note DISCHARGE DRESSING APPLIED BY NANCY SHER PER PROVIDER ORDER WOUND ASSESSMENT COMPLETED BY MELQUIADES BERRIOS LPN. PT C/O BLE BEING PRURITIC. documented in this encounter [facility] 07-20-2024 Note HNO ID: [id number] Author: ROB ALBA DPM Service: ? Author Type: Physician Type: Progress Notes Filed: 07/20/2024 10:18 Note Text: Wound Care Progress Note Subjective: Patient presents with: Wound Check HISTORY of PRESENT ILLNESS HPI Krysten Crook is a 39 year old male who presents today for wound/ulcer evaluation. History of Wound Context: Atypical due to an IgA vasculitis ulcer Wound/Ulcer Pain Timing/Severity: AMB ROOMING INTAKE FLOWSHEET DATA Pain Pain Level: 0 Patient seen today for bilateral lower extremity ulcerations. Patient tolerated the Coflex TLC wraps well and the Thera honey pad. He states his pain was much better controlled. He denies nausea vomiting fever chills. No new lower extremity complaints. Patient is hoping to go back to work on Wednesday. He is able to get the wraps into the boots that he has to wear at work. PAST MEDICAL HISTORY Diagnosis Date Essential hypertension Hypercholesterolemia Vasculitis (HCC) PAST SURGICAL HISTORY Procedure Laterality Date DENTAL SURGERY HX NONE 07/07/2024 Social History Tobacco Use Smoking status: Never Smokeless tobacco: Current Tobacco comments: VAPES ALLERGIES Allergen Reactions Keflex [Cephalexin] Hives Current Outpatient Medications on File Prior to Visit Medication Sig atorvastatin (LIPITOR) 20 mg tablet Take 20 mg by mouth once daily. lisinopril (ZESTRIL) 10 mg tablet Take 1 tablet by mouth every afternoon. No current facility-administered medications on file prior to visit. Objective: BP 119/86 Pulse 98 Temp 36.6 ?C (97.8 ?F) Resp 16 Last 3 Encounter Wt Readings: Date: Wt: 07/13/2024 117.9 kg (260 lb) 07/07/2024 127.5 kg (281 lb) 06/24/2024 128.5 kg (283 lb 4.7 oz) Physical Exam Compression Therapy: Bilateral, Double layer below the knee Treatments/Procedures Compression Therapy: Bilateral, Double layer below the knee Peripheral Vascular R Calf Circumference (cm): 43.7 cm L Calf Circumference (cm): 43.3 cm R Ankle Measurement (cm): 28.4 cm L Ankle Measurement (cm): 30.4 cm Lower Extremity Circulation Pulses Palpation - LEFT dorsal pedis pulse: +2 Pulses Palpation - RIGHT dorsal pedis pulse: +2 Pulses Palpation - LEFT dorsal pedis pulse: +2 Pulses Palpation - RIGHT dorsal pedis pulse: +2 Neuro: Epicritic sensations intact bilaterally no clonus is noted. Derm: Skin Condition/Temp: Warm (BLE). See picture and description of the ulcerations below. There is epithelialization for the ulcerations. Patient has increased red granulation tissue. The ulcerations are smaller. The right pretibial ulceration slightly decreased in size from 594.72 cm? to 549.48 cm? and the left lower extremity ulceration decreased from 468.42 cm? to 44 5 2 cm?. The most improvement was seen with the ulceration appearance. There is copious amounts of serosanguineous drainage bilaterally. No signs of infection today. Ortho: LLE: Swelling Musculoskeletal LLE: Swelling RLE: Swelling Pain is present with palpation to the ulcerations. No crepitation noted. Muscle strength are normal to the lower extremities and patient able to walk without problem. LABS: No results found for: CRP No results found for: WSR No results found for: INR No results found for: APTT No results found for: HBA1C MICROBIOLOGY: Positive Micro-30 Days No results found for the last 720 hours. IMAGING: Last XR Foot - Impression Only No resulted procedures found. Last XR Ankle - Impression Only No resulted procedures found. Last MRI Foot - Impression Only No resulted procedures found. Last MRI Ankle - Impression Only No resulted procedures found. Wound 07/13/24 0837 Atypical Wound Pretibial Right (Active) Properties Placement Date 07/13/24 Placement Time 836 Location Pretibial (circumfirencial) Present on Original Admission Yes Wound Approximate Age at First Assessment (Weeks) 7 weeks Primary Wound Type Atypical Wound (IGA VASCULITIS) Wound Location Orientation Right Wound Description (Comments) [facility] FT Assessments 07/20/2024 9:00 AM Wound Image Lorraine-Wound Assessment Hyperpigmented;Dry;Peeling;Macer ation;Scarred Wound Length (cm) 22.8 cm Wound Width (cm) 24.1 cm Wound Surface Area (cm2) 549.48 cm2 Wound Depth (cm) 0.1 cm Wound Volume (cm3) 54.948 cm3 Wound Healing % 8 Drainage Description Serosanguineous;Purulent Drainage Amount Copious Odor Mild Wound Bed Granulation (%) 50 % (HYPERGRANULATED IN SOME AREAS) Wound Bed Slough (%) 50 % Non-staged Wound Description Full thickness Wound 07/13/24 0838 Atypical Wound Pretibial Left (Active) Properties Placement Date 07/13/24 Placement Time 0838 Location Pretibial (circumfirencial) Present on Original Admission Yes Wound Approximate Age at First Assessment (Weeks) 7 weeks Primary Wound Type Atypical Wound (IGA VASCULITIS) Wound Location Orientation Left Wound Description (Comment (more content not included)... [facility] 07-20-2024 History of Present illness Narrative Images from the original note were not included. Wound Care Progress Note Subjective: Patient presents with: Wound Check HISTORY of PRESENT ILLNESS HPI Krysten Crook is a 39 year old male who presents today for wound/ulcer evaluation. History of Wound Context: Atypical due to an IgA vasculitis ulcer Wound/Ulcer Pain Timing/Severity: AMB ROOMING INTAKE FLOWSHEET DATA Pain Pain Level: 0 Patient seen today for bilateral lower extremity ulcerations. Patient tolerated the Coflex TLC wraps well and the Thera honey pad. He states his pain was much better controlled. He denies nausea vomiting fever chills. No new lower extremity complaints. Patient is hoping to go back to work on Wednesday. He is able to get the wraps into the boots that he has to wear at work. PAST MEDICAL HISTORY Diagnosis Date Essential hypertension Hypercholesterolemia Vasculitis (HCC) PAST SURGICAL HISTORY Procedure Laterality Date DENTAL SURGERY HX NONE 07/07/2024 Social History Tobacco Use Smoking status: Never Smokeless tobacco: Current Tobacco comments: VAPES ALLERGIES Allergen Reactions Keflex [Cephalexin] Hives Current Outpatient Medications on File Prior to Visit Medication Sig atorvastatin (LIPITOR) 20 mg tablet Take 20 mg by mouth once daily. lisinopril (ZESTRIL) 10 mg tablet Take 1 tablet by mouth every afternoon. No current facility-administered medications on file prior to visit. Objective: BP 119/86 Pulse 98 Temp 36.6 C (97.8 F) Resp 16 Last 3 Encounter Wt Readings: Date: Wt: 07/13/2024 117.9 kg (260 lb) 07/07/2024 127.5 kg (281 lb) 06/24/2024 128.5 kg (283 lb 4.7 oz) Physical Exam Compression Therapy: Bilateral, Double layer below the knee Treatments/Procedures Compression Therapy: Bilateral, Double layer below the knee Peripheral Vascular R Calf Circumference (cm): 43.7 cm L Calf Circumference (cm): 43.3 cm R Ankle Measurement (cm): 28.4 cm L Ankle Measurement (cm): 30.4 cm Lower Extremity Circulation Pulses Palpation - LEFT dorsal pedis pulse: +2 Pulses Palpation - RIGHT dorsal pedis pulse: +2 Pulses Palpation - LEFT dorsal pedis pulse: +2 Pulses Palpation - RIGHT dorsal pedis pulse: +2 Neuro: Epicritic sensations intact bilaterally no clonus is noted. Derm: Skin Condition/Temp: Warm (BLE). See picture and description of the ulcerations below. There is epithelialization for the ulcerations. Patient has increased red granulation tissue. The ulcerations are smaller. The right pretibial ulceration slightly decreased in size from 594.72 cm to 549.48 cm and the left lower extremity ulceration decreased from 468.42 cm to 44 5 2 cm . The most improvement was seen with the ulceration appearance. There is copious amounts of serosanguineous drainage bilaterally. No signs of infection today. Ortho: LLE: Swelling Musculoskeletal LLE: Swelling RLE: Swelling Pain is present with palpation to the ulcerations. No crepitation noted. Muscle strength are normal to the lower extremities and patient able to walk without problem. LABS: No results found for: CRP No results found for: WSR No results found for: INR No results found for: APTT No results found for: HBA1C MICROBIOLOGY: Positive Micro-30 Days No results found for the last 720 hours. IMAGING: Last XR Foot - Impression Only No resulted procedures found. Last XR Ankle - Impression Only No resulted procedures found. Last MRI Foot - Impression Only No resulted procedures found. Last MRI Ankle - Impression Only No resulted procedures found. Wound 07/13/24 08 Atypical Wound Pretibial Right (Active) Properties Placement Date 07/13/24 Placement Time 836 Location Pretibial (circumfirencial) Present on Original Admission Yes Wound Approximate Age at First Assessment (Weeks) 7 weeks Primary Wound Type Atypical Wound (IGA VASCULITIS) Wound Location Orientation Right Wound Description (Comments) [facility] Assessments 07/20/2024 9:00 AM Wound Image Lorraine-Wound Assessment Hyperpigmented;Dry;Peeling;Macer ation;Scarred Wound Length (cm) 22.8 cm Wound Width (cm) 24.1 cm Wound Surface Area (cm^2) 549.48 cm^2 Wound Depth (cm) 0.1 cm Wound Volume (cm^3) 54.948 cm^3 Wound Healing % 8 Drainage Description Serosanguineous;Purulent Drainage Amount Copious Odor Mild Wound Bed Granulation (%) 50 % (HYPERGRANULATED IN SOME AREAS) Wound Bed Slough (%) 50 % Non-staged Wound Description Full thickness Wound 07/13/24837 Atypical Wound Pretibial Left (Active) Properties Placement Date 07/13/24 Placement Time 837 Location Pretibial (circumfirencial) Present on Original Admission Yes Wound Approximate Age at First Assessment (Weeks) 7 weeks Primary Wound Type Atypical Wound (IGA VASCULITIS) Wound Location Orientation Left Wound Description (Comments) [facility] FT Assessments 07/20/2024 9:00 AM Wound Image Lorraine-Wound Assessment Dry;Hyperpigmented;Purple;Scarre d Wound Length (cm) 21 cm Wound Width (cm) 21.2 cm Wound Surface Area (cm^2) 445.2 cm^2 Wound Depth (cm) 0.2 cm Wound Volume (cm^3) 89.04 cm^3 Wound Healing % -90 Drainage Description Serosanguineous;Purulent Drainage Amount Copious Odor None Wound Bed Granulation (%) 60 % (HYPERGRANULATED) Wound Bed Slough (%) 40 % Non-staged Wound Description Full thickness Procedures: No debridement Assessment and Plan: Iga mediated leukocytoclastic vasculitis (hcc) (primary encounter diagnosis) 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 Patient is to keep the dressings dry, clean, and intact. I asked that he elevate the lower extremities frequently performing ankle pumps and circles for edema control. Patient will be allowed to return to work on Wednesday since he can get the wraps and dressings into his boots. Advised him to avoid standing in 1 position for long periods of time and to avoid having the legs in a downward position for long periods of time. I encouraged him to ambulate them elevate. Continue with dietary recommendations as previously ordered. At this point he has finished the oral steroids for about a week and a half. Organ to hold off on any more at this time and continue with our wound care. Treatment Note please see attached After Visit Summary Thank you for choosing [facility] and allowing us to help heal your wounds. SIGNATURE: Rob Alba DPM PATIENT NAME: Krysten Crook DATE: July 20, 2024 TIME: 9:53 AM documented in this encounter [facility] 07-20-2024 Instructions Barbara Barlow RN - 07/20/2024 9:23 AM EDT RIGHT LOWER EXTREMITY AND LEFT LOWER EXTREMITY ULCERS: Shower with dressing protected/covered Cleanse ulcers with normal saline Apply betamethasone cream to intact skin Apply THERA HONEY FOAM to ulcers Cover with non adhesive foam as needed Apply 2 layer compression bandage system Calamine May pad ankle/achilles with felt/foam or cast padding as needed Change weekly at [facility] and as needed If problems with compression and you are instructed, remove compression wrap, cleanse the ulcer with saline, apply steroid cream, cover with dry gauze and change dressing 2xday. Elevate your legs above the level of your heart and do ankle pumps and circles. Take 1/2 tab of a Multi-vitamin with zinc twice a day, Vitamin D3 5000 international unit(s) daily and eat high protein foods to help promote wound healing. Intake nurses to apply lidocaine viscous 2% to ulcer(s) qweek prior to debridement for pain control. If you have questions or concerns: Wednesday-Wednesday 8am-4:30pm, call the [facility] at [phone]. After 4:30pm, on weekends or holidays, call [facility] at [phone] and have the physician supervisor cap and hat production paged. documented in this encounter [facility] 07-20-2024 Nurse Note WOUND ASSESSMENT COMPLETED BY MELQUIADES BERRIOS LPN. PT C/O BLE BEING PRURITIC. [facility] 07-13-2024 Nurse Note DISCHARGE DRESSING APPLIED BY SUN MORRIS RN PER PROVIDER ORDER Care of the non-healing wound educational packet provided to patient [facility] 07-13-2024 Nurse Note DISCHARGE DRESSING APPLIED BY SUN MORRIS RN PER PROVIDER ORDER Care of the non-healing wound educational packet provided to patient ASSESSMENT COMPLETED BY AYESHA ROLON RN. Pt states that gauze irritates his skin. 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 No dressings to wounds today. Pt has taken a taper down round of prednisone and also antibiotics. documented in this encounter [facility] 07-13-2024 Note HNO ID: [id number] Author: ROB ALBA DPM Service: ? Author Type: Physician Type: Progress Notes Filed: 07/13/2024 09:42 Note Text: Wound Care Progress Note Subjective: Patient presents with: Wound Check HISTORY of PRESENT ILLNESS HPI Krysten Crook is a 39 year old male who presents today for wound/ulcer evaluation. History of Wound Context: Vasculitis ulcer Wound/Ulcer Pain Timing/Severity: AMB ROOMING INTAKE FLOWSHEET DATA Pain Pain Level: 7 Pain Location: Leg-Left (and right leg) Description: Burning (pressure) Frequency: Intermittent Intervention/Comfort measure: Medication Patient seen today relating that he has developed a vasculitis IgA ulcerations on the lower extremities. This resulted after going to [facility] and jumping into the water off of the waterfall. Apparently he got a strep infection that went up his nares and subsequently developed vasculitis that was confirmed by biopsy. Patient has had 2 rounds of high-dose steroids and antibiotics. Currently he is not putting anything on the ulcerations and leaving them open to air. They are painful even with light touch today he has discomfort. He has not seen much improvement therefore presents to the wound center today. PAST MEDICAL HISTORY Diagnosis Date Essential hypertension Hypercholesterolemia Vasculitis (HCC) PAST SURGICAL HISTORY Procedure Laterality Date DENTAL SURGERY HX NONE 07/07/2024 ALLERGIES Allergen Reactions Keflex [Cephalexin] Hives Current Outpatient Medications on File Prior to Visit Medication Sig atorvastatin (LIPITOR) 20 mg tablet Take 20 mg by mouth once daily. lisinopril (ZESTRIL) 10 mg tablet Take 1 tablet by mouth every afternoon. No current facility-administered medications on file prior to visit. Objective: BP 123/76 Pulse 88 Temp 36.6 ?C (97.9 ?F) Resp 16 Ht 172.7 cm (5' 8) Wt 117.9 kg (260 lb) BMI 39.53 kg/m? Last 3 Encounter Wt Readings: Date: Wt: 07/13/2024 117.9 kg (260 lb) 07/07/2024 127.5 kg (281 lb) 06/24/2024 128.5 kg (283 lb 4.7 oz) Physical Exam Peripheral Vascular R Calf Circumference (cm): 43.8 cm L Calf Circumference (cm): 42.9 cm R Ankle Measurement (cm): 31.7 cm L Ankle Measurement (cm): 31.2 cm Hemosiderin Staining Present: Left, Right, Yes Hair growth to LE present: Yes Lower Extremity Circulation Pulses Palpation - LEFT dorsal pedis pulse: +1 Pulses Palpation - LEFT posterior tibial pulse: +1 Pulses Palpation - RIGHT dorsal pedis pulse: +1 Pulses Palpation - RIGHT posterior tibial pulse: +1 Pulses Doppler - LEFT dorsal pedis pulse: biphasic Pulses Doppler - LEFT posterior tibial pulse: biphasic Pulses Doppler - RIGHT dorsal pedis pulse: biphasic Pulses Doppler - RIGHT posterior tibial pulse: biphasic Pulses Palpation - LEFT dorsal pedis pulse: +1 Pulses Palpation - LEFT posterior tibial pulse: +1 Pulses Palpation - RIGHT dorsal pedis pulse: +1 Pulses Palpation - RIGHT posterior tibial pulse: +1 Pulses Doppler - LEFT dorsal pedis pulse: biphasic Pulses Doppler - LEFT posterior tibial pulse: biphasic Pulses Doppler - RIGHT dorsal pedis pulse: biphasic Pulses Doppler - RIGHT posterior tibial pulse: biphasic Neuro: Epicritic sensations are intact bilaterally. No clonus noted. Negative Babinski exam. Derm: Skin Condition/Temp: Dry, Swollen, Warm (ble). See picture and description of the ulcerations below. There are multiple black scabs in various stages of full-thickness ulceration. Small areas of purulent type drainage from underneath the scabs are noted bilaterally. These ulcers do not extend above the level of the lower leg and knee. They are painful with pressure but no crepitation is noted. The most significant ulcerations are seen over the lateral right ankle and calf. Ortho: LLE: Deformity, Swelling, Sensation intact (semmes 10/10) Musculoskeletal Musculoskeletal (WDL): Exceptions to WDL LLE: Deformity, Swelling, Sensation intact (semmes 10/10) RLE: Deformity, Swelling, Sensation intact (semmes 10/10) Muscle strength are 5/5 for all groups bilaterally. Pain with palpation to ulcers bilaterally LABS: No results found for: CRP No results found for: WSR No results found for: INR No results found for: APTT No results found for: HBA1C MICROBIOLOGY: Positive Micro-30 Days No results found for the last 720 hours. IMAGING: Last XR Foot - Impression Only No resulted procedures found. Last XR Ankle - Impression Only No resulted procedures found. Last MRI Foot - Impression Only No resulted procedures found. Last MRI Ankle - Impression Only No resulted procedures found. Wound 07/13/24 0837 Atypical Wound Pretibial Right (Active) Properties Placement Date 07/13/24 Placement Time 0837 Location Pretibial (circumfirencial) Present on Original Admission Yes Wound Approximate Age at First Assessment (Weeks) 7 weeks Primary Wound Type Atypi (more content not included)... [facility] 07-13-2024 History of Present illness Narrative Images from the original note were not included. Wound Care Progress Note Subjective: Patient presents with: Wound Check HISTORY of PRESENT ILLNESS HPI Krysten Crook is a 39 year old male who presents today for wound/ulcer evaluation. History of Wound Context: Vasculitis ulcer Wound/Ulcer Pain Timing/Severity: AMB ROOMING INTAKE FLOWSHEET DATA Pain Pain Level: 7 Pain Location: Leg-Left (and right leg) Description: Burning (pressure) Frequency: Intermittent Intervention/Comfort measure: Medication Patient seen today relating that he has developed a vasculitis IgA ulcerations on the lower extremities. This resulted after going to [facility] and jumping into the water off of the waterfall. Apparently he got a strep infection that went up his nares and subsequently developed vasculitis that was confirmed by biopsy. Patient has had 2 rounds of high-dose steroids and antibiotics. Currently he is not putting anything on the ulcerations and leaving them open to air. They are painful even with light touch today he has discomfort. He has not seen much improvement therefore presents to the wound center today. PAST MEDICAL HISTORY Diagnosis Date Essential hypertension Hypercholesterolemia Vasculitis (HCC) PAST SURGICAL HISTORY Procedure Laterality Date DENTAL SURGERY HX NONE 07/07/2024 ALLERGIES Allergen Reactions Keflex [Cephalexin] Hives Current Outpatient Medications on File Prior to Visit Medication Sig atorvastatin (LIPITOR) 20 mg tablet Take 20 mg by mouth once daily. lisinopril (ZESTRIL) 10 mg tablet Take 1 tablet by mouth every afternoon. No current facility-administered medications on file prior to visit. Objective: BP 123/76 Pulse 88 Temp 36.6 C (97.9 F) Resp 16 Ht 172.7 cm (5' 8) Wt 117.9 kg (260 lb) BMI 39.53 kg/m Last 3 Encounter Wt Readings: Date: Wt: 07/13/2024 117.9 kg (260 lb) 07/07/2024 127.5 kg (281 lb) 06/24/2024 128.5 kg (283 lb 4.7 oz) Physical Exam Peripheral Vascular R Calf Circumference (cm): 43.8 cm L Calf Circumference (cm): 42.9 cm R Ankle Measurement (cm): 31.7 cm L Ankle Measurement (cm): 31.2 cm Hemosiderin Staining Present: Left, Right, Yes Hair growth to LE present: Yes Lower Extremity Circulation Pulses Palpation - LEFT dorsal pedis pulse: +1 Pulses Palpation - LEFT posterior tibial pulse: +1 Pulses Palpation - RIGHT dorsal pedis pulse: +1 Pulses Palpation - RIGHT posterior tibial pulse: +1 Pulses Doppler - LEFT dorsal pedis pulse: biphasic Pulses Doppler - LEFT posterior tibial pulse: biphasic Pulses Doppler - RIGHT dorsal pedis pulse: biphasic Pulses Doppler - RIGHT posterior tibial pulse: biphasic Pulses Palpation - LEFT dorsal pedis pulse: +1 Pulses Palpation - LEFT posterior tibial pulse: +1 Pulses Palpation - RIGHT dorsal pedis pulse: +1 Pulses Palpation - RIGHT posterior tibial pulse: +1 Pulses Doppler - LEFT dorsal pedis pulse: biphasic Pulses Doppler - LEFT posterior tibial pulse: biphasic Pulses Doppler - RIGHT dorsal pedis pulse: biphasic Pulses Doppler - RIGHT posterior tibial pulse: biphasic Neuro: Epicritic sensations are intact bilaterally. No clonus noted. Negative Babinski exam. Derm: Skin Condition/Temp: Dry, Swollen, Warm (ble). See picture and description of the ulcerations below. There are multiple black scabs in various stages of full-thickness ulceration. Small areas of purulent type drainage from underneath the scabs are noted bilaterally. These ulcers do not extend above the level of the lower leg and knee. They are painful with pressure but no crepitation is noted. The most significant ulcerations are seen over the lateral right ankle and calf. Ortho: LLE: Deformity, Swelling, Sensation intact (semmes 10/10) Musculoskeletal Musculoskeletal (WDL): Exceptions to WDL LLE: Deformity, Swelling, Sensation intact (semmes 10/10) RLE: Deformity, Swelling, Sensation intact (semmes 10/10) Muscle strength are 5/5 for all groups bilaterally. Pain with palpation to ulcers bilaterally LABS: No results found for: CRP No results found for: WSR No results found for: INR No results found for: APTT No results found for: HBA1C MICROBIOLOGY: Positive Micro-30 Days No results found for the last 720 hours. IMAGING: Last XR Foot - Impression Only No resulted procedures found. Last XR Ankle - Impression Only No resulted procedures found. Last MRI Foot - Impression Only No resulted procedures found. Last MRI Ankle - Impression Only No resulted procedures found. Wound 07/13/24 0837 Atypical Wound Pretibial Right (Active) Properties Placement Date 07/13/24 Placement Time 836 Location Pretibial (circumfirencial) Present on Original Admission Yes Wound Approximate Age at First Assessment (Weeks) 7 weeks Primary Wound Type Atypical Wound (IGA VASCULITIS) Wound Location Orientation Right Wound Description (Comments) [facility] Assessments 07/13/2024 8:28 AM Wound Image Lorraine-Wound Assessment Hyperpigmented;Peeling;Dry Wound Length (cm) 23.6 cm Wound Width (cm) 25.2 cm Wound Surface Area (cm^2) 594.72 cm^2 Wound Depth (cm) 0.1 cm Wound Volume (cm^3) 59.472 cm^3 Drainage Description Serosanguineous;Purulent Drainage Amount Large (actively weeping and dried to various areas) Odor Mild Wound Bed Granulation (%) 5 % Wound Bed Slough (%) 95 % (wet and dry) Non-staged Wound Description Full thickness Wound 07/13/24 0838 Atypical Wound Pretibial Left (Active) Properties Placement Date 07/13/24 Placement Time 0838 Location Pretibial (circumfirencial) Present on Original Admission Yes Wound Approximate Age at First Assessment (Weeks) 7 weeks Primary Wound Type Atypical Wound (IGA VASCULITIS) Wound Location Orientation Left Wound Description (Comments) [facility] Assessments 07/13/2024 8:28 AM Wound Image Wound Length (cm) 21.1 cm Wound Width (cm) 22.2 cm (slight angle) Wound Surface Area (cm^2) 468.42 cm^2 Wound Depth (cm) 0.1 cm Wound Volume (cm^3) 46.842 cm^3 Drainage Description Serosanguineous;Purulent (actively weeping and dried to various areas) Drainage Amount Large Odor Mild Wound Bed Granulation (%) 5 % Wound Bed Slough (%) 95 % (wet and dry) Non-staged Wound Description Full thickness Procedures: Assessment and Plan: Iga mediated leukocytoclastic vasculitis (hcc) (primary encounter diagnosis) 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 Will use viscous lidocaine to the ulcers on next appointment. Possible debridement at next appointment. Will apply a Thera honey pad to the ulcers and cover with a Coflex TLC wrap with calamine. Betamethasone to be applied to the intact skin. Patient instructed keep the dressing dry, clean, and intact. If he has any problems he can cut the top of it if it starts to roll down on him or if he has to remove it he can use the steroid creams that he has at home twice daily and cover with a gauze bandage. Will hold patient off of work another week to see how he does with the bandages. If we have improvement and he does well with the bandages we will anticipate him returning to work. Patient is to call my office after hours or the wound center during business hours if there are any questions or concerns regarding the lower extremity ulcers. Educated patient on the importance of a high-protein diet for healing as well as vitamin D3 5000 units daily and a multivitamin zinc for nutrition. If no improvement also consider another course of oral steroids in the future. Treatment Note please see attached After Visit Summary Thank you for choosing [facility] and allowing us to help heal your wounds. SIGNATURE: Rob Alba DPM PATIENT NAME: Krysten Crook DATE: July 13, 2024 TIME: 9:13 AM documented in this encounter [facility] 07-13-2024 Instructions Barbara Barlow RN - 07/13/2024 9:03 AM EDT RIGHT LOWER EXTREMITY AND LEFT LOWER EXTREMITY ULCERS: Shower with dressing protected/covered Cleanse ulcers with normal saline Apply betamethasone cream to intact skin Apply THERA HONEY FOAM to ulcers Cover with non adhesive foam as needed Apply 2 layer compression bandage system Calamine May pad ankle/achilles with felt/foam or cast padding as needed Change weekly at [facility] and as needed If problems with compression and you are instructed, remove compression wrap, cleanse the ulcer with saline, apply steroid cream, cover with dry gauze and change dressing 2xday. Elevate your legs above the level of your heart and do ankle pumps and circles. Take 1/2 tab of a Multi-vitamin with zinc twice a day, Vitamin D3 5000 international unit(s) daily and eat high protein foods to help promote wound healing. Intake nurses to apply lidocaine viscous 2% to ulcer(s) qweek prior to debridement for pain control. If you have questions or concerns: Wednesday-Wednesday 8am-4:30pm, call the [facility] at [phone]. After 4:30pm, on weekends or holidays, call [facility] at [phone] and have the physician supervisor cap and hat production paged. documented in this encounter [facility] 07-13-2024 Nurse Note ASSESSMENT COMPLETED BY AYESHA ROLON RN. Pt states that gauze irritates his skin. 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 No dressings to wounds today. Pt has taken a taper down round of prednisone and also antibiotics. [facility] 07-07-2024 Note HNO ID: [id number] Author: TANMAY DO APRN.FINISHED CLOTH EXAMINER Service: ? Author Type: Nurse Practitioner Type: Progress Notes Filed: 07/07/2024 15:14 Note Text: Krysten Crook is a 39 year old male here today acutely because of having: Wound Check (Patient was in to see Kenny Do on 06/29/2024. He is present to have the wounds checked. He states the wounds are improving. He is needing a note to excuse him from work because he isn't able to wear boots. ) Patient was seen at walk-in on 06/29/2020 for her wound infections from vasculitis. He was started on clindamycin 300 mg. He is back in the office today to have his wounds checked and needing a slip for work due to being unable to wear his boots. Reports the sores and scabs on his bilateral lower legs are getting better. They are starting to heal now that he is leaving them open and not covering them. Feels the redness around the wounds is now gone and there is no drainage. He does see the wound clinic in 6 days. Denies any fever, chills, body aches, nausea, diarrhea, headaches. Wound Check Pertinent negatives include no chest pain, chills, coughing, fatigue, fever, nausea or vomiting. Review of Systems Constitutional: Negative for chills, fatigue and fever. Respiratory: Negative for cough, chest tightness, shortness of breath and wheezing. Cardiovascular: Negative for chest pain and palpitations. Gastrointestinal: Negative for diarrhea, nausea and vomiting. Skin: Positive for wound (bilateral lower legs). BP 125/91 (BP Site: Left Arm, BP Position: Sitting, BP Cuff Size: Regular Adult) Pulse 80 Temp 37.2 ?C (98.9 ?F) (Oral) Wt 127.5 kg (281 lb) SpO2 97% There is no height on file. ALLERGIES Allergen Reactions Keflex [Cephalexin] Hives Physical Exam Constitutional: Appearance: Normal appearance. Cardiovascular: Rate and Rhythm: Normal rate and regular rhythm. Heart sounds: Normal heart sounds. No murmur heard. Pulmonary: Effort: Pulmonary effort is normal. No respiratory distress. Breath sounds: Normal breath sounds. No wheezing. Skin: General: Skin is warm and dry. Findings: Lesion present. Comments: Patient has multiple skin lesions/wounds scattered all over the lower legs, that are in different stages of healing. They are scabbed and without any drainage. No signs of infection noted at this time. Neurological: Mental Status: He is alert and oriented to person, place, and time. ASSESSMENT/PLAN: 1. Vasculitis (HCC) - ICD9: 447.6, ICD10: I77.6 - Keep appointment with wound clinic. Tanmay Do CNP Follow Up: Return if symptoms worsen or fail to improve. Prescription instructions reviewed with patient as applicable. Patient advised if symptoms do not improve or if symptoms worsen sooner, to contact their primary care physician. Potential red flag symptoms discussed with the patient. Reviewed appropriate action plan to take if red flag symptoms occur. Patient agreeable to treatment plan. Voice recognition software utilized. Minor grammatical and/or spelling errors may exist. Portions of this note have been entered by ancillary staff. I have reviewed and when necessary edited, so that they are an adequate record of my encounter with this patient. [facility] 07-07-2024 History of Present illness Narrative Krysten Crook is a 39 year old male here today acutely because of having: Wound Check (Patient was in to see Kenny Do on 06/29/2024. He is present to have the wounds checked. He states the wounds are improving. He is needing a note to excuse him from work because he isn't able to wear boots. ) Patient was seen at walk-in on 06/29/2020 for her wound infections from vasculitis. He was started on clindamycin 300 mg. He is back in the office today to have his wounds checked and needing a slip for work due to being unable to wear his boots. Reports the sores and scabs on his bilateral lower legs are getting better. They are starting to heal now that he is leaving them open and not covering them. Feels the redness around the wounds is now gone and there is no drainage. He does see the wound clinic in 6 days. Denies any fever, chills, body aches, nausea, diarrhea, headaches. Wound Check Pertinent negatives include no chest pain, chills, coughing, fatigue, fever, nausea or vomiting. Review of Systems Constitutional: Negative for chills, fatigue and fever. Respiratory: Negative for cough, chest tightness, shortness of breath and wheezing. Cardiovascular: Negative for chest pain and palpitations. Gastrointestinal: Negative for diarrhea, nausea and vomiting. Skin: Positive for wound (bilateral lower legs). BP 125/91 (BP Site: Left Arm, BP Position: Sitting, BP Cuff Size: Regular Adult) Pulse 80 Temp 37.2 C (98.9 F) (Oral) Wt 127.5 kg (281 lb) SpO2 97% There is no height on file. ALLERGIES Allergen Reactions Keflex [Cephalexin] Hives Physical Exam Constitutional: Appearance: Normal appearance. Cardiovascular: Rate and Rhythm: Normal rate and regular rhythm. Heart sounds: Normal heart sounds. No murmur heard. Pulmonary: Effort: Pulmonary effort is normal. No respiratory distress. Breath sounds: Normal breath sounds. No wheezing. Skin: General: Skin is warm and dry. Findings: Lesion present. Comments: Patient has multiple skin lesions/wounds scattered all over the lower legs, that are in different stages of healing. They are scabbed and without any drainage. No signs of infection noted at this time. Neurological: Mental Status: He is alert and oriented to person, place, and time. ASSESSMENT/PLAN: 1. Vasculitis (HCC) - ICD9: 447.6, ICD10: I77.6 - Keep appointment with wound clinic. Tanmay Do CNP Follow Up: Return if symptoms worsen or fail to improve. Prescription instructions reviewed with patient as applicable. Patient advised if symptoms do not improve or if symptoms worsen sooner, to contact their primary care physician. Potential red flag symptoms discussed with the patient. Reviewed appropriate action plan to take if red flag symptoms occur. Patient agreeable to treatment plan. Voice recognition software utilized. Minor grammatical and/or spelling errors may exist. Portions of this note have been entered by ancillary staff. I have reviewed and when necessary edited, so that they are an adequate record of my encounter with this patient. documented in this encounter [facility] 06-29-2024 Note HNO ID: [id number] Author: TANMAY DO APRN.RADHA Service: ? 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 He has been seeing a vasculitis DrYoel And has been treating him with clindamycin 300 mg twice a day for the 2 weeks. His last appointment was 06/09/2024. He has finished the 2-week span and is in the office today concerned this lesions/wounds are getting infected again. He does not have an appointment to see his new primary doctor until the 16th of next month. States due to the scabbing on the lower legs, he is unable to put on his boots for work. He has been off for several months. Denies any fever, chills, body aches, nausea, vomiting, diarrhea, drainage. Has followed care of his legs as what his doctor prescribed. Only needed medication to cover a little longer for the possible infection. Since the patient has done so well on the clindamycin, I will continue on for another 10 days. Review of Systems Constitutional: Negative for chills, fatigue and fever. Respiratory: Negative for cough, chest tightness, shortness of breath and wheezing. Cardiovascular: Negative for chest pain and palpitations. Gastrointestinal: Negative for diarrhea, nausea and vomiting. Skin: Positive for wound (bilateral lower legs). BP 122/88 (BP Site: Left Arm, BP Position: Sitting, BP Cuff Size: Regular Adult) Pulse 89 Temp 36.8 ?C (98.2 ?F) (Oral) Resp 18 SpO2 96% No weight on file for this encounter. ALLERGIES Allergen Reactions Keflex [Cephalexin] Hives Physical Exam Constitutional: Appearance: Normal appearance. Cardiovascular: Rate and Rhythm: Normal rate and regular rhythm. Heart sounds: Normal heart sounds. No murmur heard. Pulmonary: Effort: Pulmonary effort is normal. No respiratory distress. Breath sounds: Normal breath sounds. No wheezing. Skin: General: Skin is warm and dry. Findings: Lesion present. Comments: Patient has multiple skin lesions/wounds scattered all over the lower legs, that are in different stages of healing. Some have scabbed over some of the scabs of her already started to come off and others have already healed closed. Areas around the lesions are starting to turn red and unable to determine if it was truly warm due to all the scabbing. Legs are slightly swollen, but this has been normal for the patient. Neurological: Mental Status: He is alert and oriented to person, place, and time. ASSESSMENT/PLAN: 1. Wound infection - ICD9: 958.3, ICD10: T14.8XXA, L08.9 - Begin treatment with Clindamycin - No lymphangetic streaking, this was defined for patient to watch for and to seek medical care immediately if appears - CLINDAMYCIN HCL 300 MG CAPSULE Tanmay D. Hi, FINISHED CLOTH EXAMINER Follow Up: Return if symptoms worsen or fail to improve. Prescription instructions reviewed with patient as applicable. Patient advised if symptoms do not improve or if symptoms worsen sooner, to contact their primary care physician. Potential red flag symptoms discussed with the patient. Reviewed appropriate action plan to take if red flag symptoms occur. Patient agreeable to treatment plan. Voice recognition software utilized. Minor grammatical and/or spelling errors may exist. Portions of this note have been entered by ancillary staff. I have reviewed and when necessary edited, so that they are an adequate record of my encounter with this patient. 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 He has been seeing a vasculitis DrYoel And has been treating him with clindamycin 300 mg twice a day for the 2 weeks. His last appointment was 06/09/2024. He has finished the 2-week span and is in the office today concerned this lesions/wounds are getting infected again. He does not have an appointment to see his new primary doctor until the 16th of next month. States due to the scabbing on the lower legs, he is unable to put on his boots for work. He has been off for several months. Denies any fever, chills, body aches, nausea, vomiting, diarrhea, drainage. Has followed care of his legs as what his doctor prescribed. Only needed medication to cover a little longer for the possible infection. Since the patient has done so well on the clindamycin, I will continue on for another 10 days. Review of Systems Constitutional: Negative for chills, fatigue and fever. Respiratory: Negative for cough, chest tightness, shortness of breath and wheezing. Cardiovascular: Negative for chest pain and palpitations. Gastrointestinal: Negative for diarrhea, nausea and vomiting. Skin: Positive for wound (bilateral lower legs). BP 122/88 (BP Site: Left Arm, BP Position: Sitting, BP Cuff Size: Regular Adult) Pulse 89 Temp 36.8 C (98.2 F) (Oral) Resp 18 SpO2 96% No weight on file for this encounter. ALLERGIES Allergen Reactions Keflex [Cephalexin] Hives Physical Exam Constitutional: Appearance: Normal appearance. Cardiovascular: Rate and Rhythm: Normal rate and regular rhythm. Heart sounds: Normal heart sounds. No murmur heard. Pulmonary: Effort: Pulmonary effort is normal. No respiratory distress. Breath sounds: Normal breath sounds. No wheezing. Skin: General: Skin is warm and dry. Findings: Lesion present. Comments: Patient has multiple skin lesions/wounds scattered all over the lower legs, that are in different stages of healing. Some have scabbed over some of the scabs of her already started to come off and others have already healed closed. Areas around the lesions are starting to turn red and unable to determine if it was truly warm due to all the scabbing. Legs are slightly swollen, but this has been normal for the patient. Neurological: Mental Status: He is alert and oriented to person, place, and time. ASSESSMENT/PLAN: 1. Wound infection - ICD9: 958.3, ICD10: T14.8XXA, L08.9 - Begin treatment with Clindamycin - No lymphangetic streaking, this was defined for patient to watch for and to seek medical care immediately if appears - CLINDAMYCIN HCL 300 MG CAPSULE Tanmay Do CNP Follow Up: Return if symptoms worsen or fail to improve. Prescription instructions reviewed with patient as applicable. Patient advised if symptoms do not improve or if symptoms worsen sooner, to contact their primary care physician. Potential red flag symptoms discussed with the patient. Reviewed appropriate action plan to take if red flag symptoms occur. Patient agreeable to treatment plan. Voice recognition software utilized. Minor grammatical and/or spelling errors may exist. Portions of this note have been entered by ancillary staff. I have reviewed and when necessary edited, so that they are an adequate record of my encounter with this patient. documented in this encounter [facility] 06-24-2024 Note HNO ID: [id number] Author: RODRIGO SINGLETARY RT(R) Service: Radiology Author Type: Technologist Type: Progress Notes Filed: 06/24/2024 18:45 Note Text: Radiology Service Progress Note PATIENT NAME: Krysten Crook DATE OF SERVICE: June 24, 2024 TIME: 6:45 PM PATIENT IDENTITY VERIFICATION COMPLETED USING TWO (2) IDENTIFIERS: Name and Date of confirmed by patient verbally and Name and Date of confirmed by identification band. FALL SCREENING: Has the patient had 2 falls in the last year or 1 fall with injury or currently using an Ambulatory Assistive Device (Walker, Cane, Wheelchair, Crutches, etc.)? Emergency Room Patient: Screened in ED PATIENT GENDER DATA: Male PATIENT RELEVANT IMPLANT DATA REVIEWED: Not Applicable PATIENT PRESENTS WITH AN IMPLANTABLE OR ATTACHED MULTI NEEDLE MACHINE OPERATOR: No RADIOLOGY DEPARTMENT: General X-ray: Exam(s) Completed: Chest X-Ray PERIPHERAL IV DATA: Not applicable SIGNED BY: RT Carmela(R) June 24, 2024 6:[address] [facility] 06-10-2024 Consult note Associated Order (s): IP CONSULT TO IMMUNOLOGY / RHEUMATOLOGY [facility] Consult Reason for Consult Concern for IgA vasculitis Requesting Physician: Krysten Herzog MD History of Present Illness Krysten Crook is a 39 y.o. male with PMHx significant for hypertension hyperlipidemia who presented initially for rashes lower extremities Rheumatology was consulted for Concern for IgA vasculitis Patient stated that for the past month he started having some rash in his lower extremities which then become diffuse to his legs, thighs and arms. He noticed worsening not this rash then became ulceration. Initially was itchy then became painful. He denied any abdominal pain. Denied any recent infection including respiratory or urinary. Denied any fever, chills. No sicca symptoms, mouth sores or ulcers. No vision changes. He denied any numbness, tingling in any of his extremities. 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 Initially he thought it did not help however today he had needed that helped his rash and pain. Denied any joint pain or swelling. His ESR was 26, CRP normal. ROS General/Constitutional: No fever, no chills, no night sweats, no fatigue, no weight gain, no weight loss HEENT: No visual disturbances, no diplopia, no dysphagia Cardiovascular: No chest pain, no palpitations, no dyspnea on exertion Respiratory: No dyspnea, no cough, no sputum, no hemoptysis Gastrointestinal: No abdominal pain, no nausea, no vomiting, no hematemesis, no diarrhea, no constipation Genitourinary: No dysuria, no hematuria Musculoskeletal: No arthralgias, no myalgias, no back pain Neurological: No dizziness, no syncope, no focal weakness, no headaches Heme: No easy bruising, ulcerations in his lower extremities Skin: No rash, no pruritus ROS is negative except as noted in HPI. Home Meds Current Outpatient Medications Medication Sig Last Dose Start Date End Date Authorizing Provider clindamycin 300 MG capsule 300 mg, Oral, 2 TIMES DAILY 06/10/24 06/24/24 IMELDA Jay predniSONE 10 MG tablet Take 4 tablets by mouth daily for 14 days, THEN 3 tablets daily for 14 days, THEN 2 tablets daily for 14 days, THEN 1 tablet daily for 14 days. Take with food.. 06/10/24 08/05/24 IMELDA Jay triamcinolone 0.1 % Ointment ointment 1 Application, Topical, 2 TIMES DAILY, Apply thin layer to all areas of burning, pruritus or open wounds. Avoid face and genital area. 06/10/24 06/24/24 IMELDA Jay Allergies Keflex [cephalexin] Past Medical History Past Medical History: Diagnosis Date Essential hypertension, benign Hyperlipidemia Past Surgical History No past surgical history on file. Family History No family history on file. Social History Social History Occupational History Not on file Tobacco Use Smoking status: Not on file Smokeless tobacco: Not on file Substance and Sexual Activity Alcohol use: Not on file Drug use: Not on file Sexual activity: Not on file Physical Exam BP 138/80 (BP Location: Left arm, BP Position: Sitting) Pulse 95 Temp 98.7 F (37.1 C) (Oral) Resp 20 Wt 128.8 kg (283 lb 14.4 oz) SpO2 96% There is no height or weight on file to calculate BMI. General/Constitutional: Well-developed, well-nourished, no acute distress HEENT: Normocephalic, atraumatic, External ears are normal. No nasal deformity, no rhinorrhea. Uvula is midline, no oral ulcers Neck: non-tender, normal phonation Pulmonary: CTAB, normal work of breathing Cardiovascular: RRR, no murmurs, no rubs, no gallops Abdomen: soft, non-tender Integumentary: Skin is warm and dry, no rash Musculoskeletal: Strength 5/5 in biceps, triceps, distal UE, hip flex/ext, distal LE. Axial: Normal ROM cervical spine. Upper extremities: Normal ROM shoulders, elbows and wrists. No effusions. Hands: normal ROM, MCPs, PIPs, DIPs without effusions or synovitis. Lower extremities: Normal ROM hips, knees, ankles. No effusions. Ulceration with central necrotic crest in his bilateral lower extremities and diffuse rash in his upper extremities and thighs Pertinent Labs Inflammatory Markers Lab Results Component Value Date SEDRATE 20 (H) 06/10/2024 CRP 9.01 06/09/2024 Antibodies No results found for: RHEUMATOIDFR, CYCLICCITPEP No results found for: ANAMULTI, CENTROMAB, CHROMTAB, DSDNAAB, JO1AB, RIBOPPRTAB, RNPANTIBODY, ANTISCHLERO, SMRNPAB, SMITHAB, SSAANTIBODY, SSBANTIBODY No results found for: ANAIFA, ANAPATTERN, ANAQUANTITA No results found for: CANCA, ANTMYELOPEAB, [id number] Complements No results found for: C3, C4 CBC & EDIFF Lab Results Component Value Date WBC 17.22 (H) 06/09/2024 HGB 13.8 06/09/2024 HCT 42.1 06/09/2024 PLATELET 351 (H) 06/09/2024 MCV 87.2 06/09/2024 Lab Results Component Value Date RBCDISTRIBU 13.2 06/09/2024 GRNLOCYT 76.2 06/09/2024 LYMPHOCYT 17.0 06/09/2024 MONOCYTELEC 5.9 06/09/2024 EOSINOPHILS 0.3 06/09/2024 BASOPHILS 0.2 06/09/2024 LYMPHOCYTABS 2.92 06/09/2024 EOSINOPHLABS 0.05 06/09/2024 PLATELET 351 (H) 06/09/2024 MPV 8.8 06/09/2024 Creatinine/LFTS Lab Results Component Value Date BUN 30 (H) 06/09/2024 Lab Results Component Value Date CREATSERUM 0.92 06/09/2024 No results found for: ALT, TRANSFERASEA, AST, GGT, GAMMAGT, ALKPHOS, BILITOTAL, BILIDIRECT TB Quantiferon No results found for: MTUBERQUANT SPEP No results found for: ALPHA1, ALPHA2, BETA, GAMMA, SPEINTERPRET, INTERP Myositis Panel No results found for: CPK, ALDOLASE, PL7, PL12, EJ, OJ, SRP, MI2AB, [id number], KIT9U231, QNH2W534, PM100, KU, [id number], [id number], N7CXKVG, U3RNP Pertinent Radiology No orders to display Pathology Do not have the report of the prior biopsy done outside of this hospital Assessment & Plan Krysten Crook is seen in today for rash in both of his lower extremities. Krysten developed a rash in his lower extremities about 1 month and a half ago which became diffuse in his upper and lower extremities. He has necrotic findings in his ankles. 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 He was noticed to have an elevated ASO titer 1150.5 IU/m . Patient was then treated with steroids as well as doxycycline. Initially thought it did not help however today he admitted to have helped and has seen improvement. On our evaluation he did not have any symptoms suggesting systemic involvement. He denied any fever, chills, respiratory symptoms, urinary symptoms. He denied any abdominal pain. Denied any frequent infectio, sinusitis. Denied any joint pain or swelling. He can not recall any recent illness or exposure to any sick contacts. Based on his history and clinical findings we do not think there is systemic vasculitis at this time. The reason seems to be more infections. Plan: -Obtain ALTON IFA, ALTON multiplex, Anca panel and hepatitis panel and urine studies -if patient develops any abdominal pain we recommend an MRA of the abdomen to evaluate the vessels -we will defer steroid management and treatment of the skin IgA vasculitis to Dermatology -please reconsult us as needed Krysten Crook will be seen and discussed with attending ceramic artist KIKA Ceja. Recommendations are not official until note is co-signed by the consult attending. Miguelito Leon MD PGY-5, Department of Rheumatology Associated attestation - Bora Delatorre MBBS - 06/10/2024 4:15 PM EDT I, Bora Delatorre, saw, examined and discussed the patient on 06/10/24 with . I agree with the history, examination, and medical decision making as noted/edited above. IgA vasculitis- severe skin ulcers and diffuse purpura No other signs of systemic vasculitis at this time Please obtain ALTON IFA, ALTON multiplex, Anca panel and hepatitis panel and urine studies(UA, urine pr/cr) Defer skin vasculitis treatment to dermatology If patient c/o abdominal pain (t present he doesn't)- obtain MRA/CTA abd/pelvis to r/o vasculitis All questions were answered. KIKA Robbins respiratory medicine physician Division of Immunology/Rheumatology Department of Internal Medicine [address] [phone] [facility] Work Phone: 06-10-2024 Consult note Associated Order (s): IP CONSULT TO IMMUNOLOGY / RHEUMATOLOGY [facility] Consult Reason for Consult Concern for IgA vasculitis Requesting Physician: Krysten Herzog MD History of Present Illness Krysten Crook is a 39 y.o. male with PMHx significant for hypertension hyperlipidemia who presented initially for rashes lower extremities Rheumatology was consulted for Concern for IgA vasculitis Patient stated that for the past month he started having some rash in his lower extremities which then become diffuse to his legs, thighs and arms. He noticed worsening not this rash then became ulceration. Initially was itchy then became painful. He denied any abdominal pain. Denied any recent infection including respiratory or urinary. Denied any fever, chills. No sicca symptoms, mouth sores or ulcers. No vision changes. He denied any numbness, tingling in any of his extremities. 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 Initially he thought it did not help however today he had needed that helped his rash and pain. Denied any joint pain or swelling. His ESR was 26, CRP normal. ROS General/Constitutional: No fever, no chills, no night sweats, no fatigue, no weight gain, no weight loss HEENT: No visual disturbances, no diplopia, no dysphagia Cardiovascular: No chest pain, no palpitations, no dyspnea on exertion Respiratory: No dyspnea, no cough, no sputum, no hemoptysis Gastrointestinal: No abdominal pain, no nausea, no vomiting, no hematemesis, no diarrhea, no constipation Genitourinary: No dysuria, no hematuria Musculoskeletal: No arthralgias, no myalgias, no back pain Neurological: No dizziness, no syncope, no focal weakness, no headaches Heme: No easy bruising, ulcerations in his lower extremities Skin: No rash, no pruritus ROS is negative except as noted in HPI. Home Meds Current Outpatient Medications Medication Sig Last Dose Start Date End Date Authorizing Provider clindamycin 300 MG capsule 300 mg, Oral, 2 TIMES DAILY 06/10/24 06/24/24 IMELDA Jay predniSONE 10 MG tablet Take 4 tablets by mouth daily for 14 days, THEN 3 tablets daily for 14 days, THEN 2 tablets daily for 14 days, THEN 1 tablet daily for 14 days. Take with food.. 06/10/24 08/05/24 IMELDA Jay triamcinolone 0.1 % Ointment ointment 1 Application, Topical, 2 TIMES DAILY, Apply thin layer to all areas of burning, pruritus or open wounds. Avoid face and genital area. 06/10/24 06/24/24 IMELDA Jay Allergies Keflex [cephalexin] Past Medical History Past Medical History: Diagnosis Date Essential hypertension, benign Hyperlipidemia Past Surgical History No past surgical history on file. Family History No family history on file. Social History Social History Occupational History Not on file Tobacco Use Smoking status: Not on file Smokeless tobacco: Not on file Substance and Sexual Activity Alcohol use: Not on file Drug use: Not on file Sexual activity: Not on file Physical Exam BP 138/80 (BP Location: Left arm, BP Position: Sitting) Pulse 95 Temp 98.7 F (37.1 C) (Oral) Resp 20 Wt 128.8 kg (283 lb 14.4 oz) SpO2 96% There is no height or weight on file to calculate BMI. General/Constitutional: Well-developed, well-nourished, no acute distress HEENT: Normocephalic, atraumatic, External ears are normal. No nasal deformity, no rhinorrhea. Uvula is midline, no oral ulcers Neck: non-tender, normal phonation Pulmonary: CTAB, normal work of breathing Cardiovascular: RRR, no murmurs, no rubs, no gallops Abdomen: soft, non-tender Integumentary: Skin is warm and dry, no rash Musculoskeletal: Strength 5/5 in biceps, triceps, distal UE, hip flex/ext, distal LE. Axial: Normal ROM cervical spine. Upper extremities: Normal ROM shoulders, elbows and wrists. No effusions. Hands: normal ROM, MCPs, PIPs, DIPs without effusions or synovitis. Lower extremities: Normal ROM hips, knees, ankles. No effusions. Ulceration with central necrotic crest in his bilateral lower extremities and diffuse rash in his upper extremities and thighs Pertinent Labs Inflammatory Markers Lab Results Component Value Date SEDRATE 20 (H) 06/10/2024 CRP 9.01 06/09/2024 Antibodies No results found for: RHEUMATOIDFR, CYCLICCITPEP No results found for: ANAMULTI, CENTROMAB, CHROMTAB, DSDNAAB, JO1AB, RIBOPPRTAB, RNPANTIBODY, ANTISCHLERO, SMRNPAB, SMITHAB, SSAANTIBODY, SSBANTIBODY No results found for: ANAIFA, ANAPATTERN, ANAQUANTITA No results found for: CANCA, ANTMYELOPEAB, [id number] Complements No results found for: C3, C4 CBC & EDIFF Lab Results Component Value Date WBC 17.22 (H) 06/09/2024 HGB 13.8 06/09/2024 HCT 42.1 06/09/2024 PLATELET 351 (H) 06/09/2024 MCV 87.2 06/09/2024 Lab Results Component Value Date RBCDISTRIBU 13.2 06/09/2024 GRNLOCYT 76.2 06/09/2024 LYMPHOCYT 17.0 06/09/2024 MONOCYTELEC 5.9 06/09/2024 EOSINOPHILS 0.3 06/09/2024 BASOPHILS 0.2 06/09/2024 LYMPHOCYTABS 2.92 06/09/2024 EOSINOPHLABS 0.05 06/09/2024 PLATELET 351 (H) 06/09/2024 MPV 8.8 06/09/2024 Creatinine/LFTS Lab Results Component Value Date BUN 30 (H) 06/09/2024 Lab Results Component Value Date CREATSERUM 0.92 06/09/2024 No results found for: ALT, TRANSFERASEA, AST, GGT, GAMMAGT, ALKPHOS, BILITOTAL, BILIDIRECT TB Quantiferon No results found for: MTUBERQUANT SPEP No results found for: ALPHA1, ALPHA2, BETA, GAMMA, SPEINTERPRET, INTERP Myositis Panel No results found for: CPK, ALDOLASE, PL7, PL12, EJ, OJ, SRP, MI2AB, [id number], [id number], [id number], PM100, KU, [id number], [id number], U5IGSXX, U3RNP Pertinent Radiology No orders to display Pathology Do not have the report of the prior biopsy done outside of this hospital Assessment & Plan Krysten Crook is seen in today for rash in both of his lower extremities. Krysten developed a rash in his lower extremities about 1 month and a half ago which became diffuse in his upper and lower extremities. He has necrotic findings in his ankles. 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 He was noticed to have an elevated ASO titer 1150.5 IU/m . Patient was then treated with steroids as well as doxycycline. Initially thought it did not help however today he admitted to have helped and has seen improvement. On our evaluation he did not have any symptoms suggesting systemic involvement. He denied any fever, chills, respiratory symptoms, urinary symptoms. He denied any abdominal pain. Denied any frequent infectio, sinusitis. Denied any joint pain or swelling. He can not recall any recent illness or exposure to any sick contacts. Based on his history and clinical findings we do not think there is systemic vasculitis at this time. The reason seems to be more infections. Plan: -Obtain ALTON IFA, ALTON multiplex, Anca panel and hepatitis panel and urine studies -if patient develops any abdominal pain we recommend an MRA of the abdomen to evaluate the vessels -we will defer steroid management and treatment of the skin IgA vasculitis to Dermatology -please reconsult us as needed Krysten Crook will be seen and discussed with attending ceramic artist KIKA Ceja. Recommendations are not official until note is co-signed by the consult attending. Miguelito Leon MD PGY-5, Department of Rheumatology Associated attestation - Bora Delatorre MBBS - 06/10/2024 4:15 PM EDT I, Bora Delatorre, saw, examined and discussed the patient on 06/10/24 with . I agree with the history, examination, and medical decision making as noted/edited above. IgA vasculitis- severe skin ulcers and diffuse purpura No other signs of systemic vasculitis at this time Please obtain ALTON IFA, ALTON multiplex, Anca panel and hepatitis panel and urine studies(UA, urine pr/cr) Defer skin vasculitis treatment to dermatology If patient c/o abdominal pain (t present he doesn't)- obtain MRA/CTA abd/pelvis to r/o vasculitis All questions were answered. KIKA Robbins respiratory medicine physician Division of Immunology/Rheumatology Department of Internal Medicine [address] [phone] documented in this encounter [facility] 06-10-2024 Hospital Discharge instructions IMELDA Jay - 06/10/2024 1:06 PM EDT -Start Prednisone taper. - Please discontinue doxycycline - Start clindamycin 300mg two times daily x 2 weeks - Start triamcinolone 0.1% ointment two times daily to all areas of burning, pruritus or open wounds - Follow up with close to home silo erector in 2 months to repeat urinalysis and Cr labs to ensure not developing renal injury - Return to the Emergency Department if any worsening symptoms. CLINICAL SPINDLE TESTER If you need any further assistance with scheduling follow up care, please call the Clinical Junior Java Developer at . The following attachments cannot be sent through Care Everywhere.Vasculitis: General Info (Luxembourgish)documented in this encounter [facility] 06-10-2024 Progress note Formatting of t his note might be different from the original. This patient was appropriately risk stratified for observation level of care and placed on an observation protocol in our Clinical Decision Unit. The patient's intensity of service and severity of illness was appropriately aligned with observation level of care. Medical Decision Making Patient presents with subacute to chronic severe vasculitic rash of lower extremities without signs of superinfection, sepsis, or other systemic compromise. Rheumatology consultation indicates no systemic involvement with plan per dermatology and stable for discharge. Amount and/or Complexity of Data Reviewed Labs: ordered. Risk OTC drugs. Decision regarding hospitalization. Patient with stable symptoms while in ED observation. Describes months of variable red slightly painful slightly pruritic ulcerating lesions which gradually heal and are limited to his legs. Physical Exam: On exam, alert and oriented, well-appearing, clear lungs, soft nontender abdomen, multiple scattered erythematous lesions of varying size diffusely over bilateral legs with mild surrounding erythema without induration or purulent drainage with clotted blood eschar in the central ulceration. No significant tenderness to palpation. Disposition: Discharge The patient has met appropriate clinical criteria to be discharged from this CDU observation protocol. Reasons to return to the ED were discussed with the patient. Clinical Impression: 1) Rash 2) IgA vasculitis I saw and evaluated the patient with RAINA. I provided a substantive portion of the care for this patient. I personally performed all aspects of the medical decision making for this encounter. I have reviewed and verified this with the RAINA so that it accurately reflects our care. [facility] Work Phone: 06-10-2024 Miscellaneous Notes This patient was appropriately risk stratified for observation level of care and placed on an observation protocol in our Clinical Decision Unit. The patient's intensity of service and severity of illness was appropriately aligned with observation level of care. Medical Decision Making Patient presents with subacute to chronic severe vasculitic rash of lower extremities without signs of superinfection, sepsis, or other systemic compromise. Rheumatology consultation indicates no systemic involvement with plan per dermatology and stable for discharge. Amount and/or Complexity of Data Reviewed Labs: ordered. Risk OTC drugs. Decision regarding hospitalization. Patient with stable symptoms while in ED observation. Describes months of variable red slightly painful slightly pruritic ulcerating lesions which gradually heal and are limited to his legs. Physical Exam: On exam, alert and oriented, well-appearing, clear lungs, soft nontender abdomen, multiple scattered erythematous lesions of varying size diffusely over bilateral legs with mild surrounding erythema without induration or purulent drainage with clotted blood eschar in the central ulceration. No significant tenderness to palpation. Disposition: Discharge The patient has met appropriate clinical criteria to be discharged from this CDU observation protocol. Reasons to return to the ED were discussed with the patient. Clinical Impression: 1) Rash 2) IgA vasculitis I saw and evaluated the patient with RAINA. I provided a substantive portion of the care for this patient. I personally performed all aspects of the medical decision making for this encounter. I have reviewed and verified this with the RAINA so that it accurately reflects our care. DEPARTMENT OF EMERGENCY MEDICINE CHIEF COMPLAINT No chief complaint on file. HISTORY OF PRESENT ILLNESS Krysten Crook is a 39 y.o. male was appropriately risk stratified for observation level of care and was placed in the EDOU per General Observation Protocol protocol. Patient is a 39-year-old male with a past medical history of hypertension and hyperlipidemia who presented to the emergency department with complaints of a bilateral lower extremity rash, ongoing over the course of the past 1 month. Patient has been following closely with the dermatology team, and a punch biopsy was performed on 05/17/2024 that showed the rash was IgA vasculitis. Patient has undergone a steroid taper from his silo erector with no relief of symptoms, at which point his silo erector has now advised him to come to the emergency department for specialist evaluation (dermatology and rheumatology). Patient denies any systemic symptoms, including but not limited to, fever, chills, chest pain, shortness of breath, GI complications, urinary symptoms, or neurologic changes. No other complaints or concerns at this time. Personal, surgical, family, and social history reviewed with patient. REVIEW OF SYSTEMS ROS All Other Systems Were Reviewed And Negative Unless Otherwise Noted PAST MEDICAL HISTORY Past Medical History Reviewed, Contributory Findings Include: See below and above in HPI, no other endorsed PMH per patient. Past Medical History: Diagnosis Date Essential hypertension, benign Hyperlipidemia SURGICAL HISTORY Past Surgical History Reviewed, Contributory Findings Include: No other endorsed surgical history per patient. No past surgical history on file. MEDICATIONS GIVEN IN THE ED Medications Acetaminophen (TYLENOL) tablet 650 mg (has no administration in time range) alum/mag hydrox.-simethicone oral suspension 30 mL (has no administration in time range) ALLERGIES Allergies Allergen Reactions Keflex [Cephalexin] Hives No known or endorsed food or drug allergies per patient. FAMILY HISTORY Family History Reviewed, Contributory Findings Include: No other endorsed family history per patient. No family history on file. SOCIAL HISTORY Social History Reviewed, Contributory Findings Include: No other endorsed social history per patient. Social History Socioeconomic History Marital status: Spouse name: Not on file Number of children: Not on file Years of education: Not on file Highest education level: Not on file Occupational History Not on file Tobacco Use Smoking status: Not on file Smokeless tobacco: Not on file Substance and Sexual Activity Alcohol use: Not on file Drug use: Not on file Sexual activity: Not on file Other Topics Concern Not on file Social History Narrative Not on file Social Determinants of Health Financial Resource Strain: Not on file Food Insecurity: Not on file Transportation Needs: Not on file Physical Activity: Not on file Stress: Not on file Social Connections: Not on file Intimate Partner Violence: Not on file Housing Stability: Not on file PHYSICAL EXAM BP 150/78 Pulse 86 Temp 98 F (36.7 C) (Oral) Resp 18 SpO2 92% Physical Exam Skin: Comments: Bilateral lower extremity rash, which does appear to be consistent with a vasculitis. EDOU COURSE & MEDICAL DECISION MAKING Risk stratification appropriate for observation level of care. Patient was placed in the EDOU per the General Observation Protocol protocol. I reviewed the patients' medical records and nursing notes and noted their allergies, past medical history, and previous visits. The patient received the following interventions in the ED to date: Lab work obtained, consisting of a CBC, chemistry panel, ESR, CRP, and IgA level. Labs significant for leukocytosis of 17.22. In the EDOU, patient will undergo consultations by both with the dermatology and rheumatology teams. Disposition to be dependent on recommendations. While in the EDOU we will continue to check, monitor and reassess patient and alter our plan as clinically appropriate. This is a non-shared visit on 06/10/2024. The patient will be staffed with the observation attending during morning rounds. Medical Decision Making Amount and/or Complexity of Data Reviewed Labs: ordered. Risk OTC drugs. Electronically signed by: Chaz Hair PA-C, 06/10/2024 2:35 AM documented in this encounter [facility] 06-10-2024 Emergency department Note Bed: C079 Expected date: Expected time: Means of arrival: Comments: [facility] department Note Bed: C079 Expected date: Expected time: Means of arrival: Comments: 17 Received report and reviewed patient's chart. Plan of care discussed with EDOU Attending and Midlevel Provider. Plan: Derm and Rheum consults. This CM will remain available to assist with further patient needs. Patient listed as having no PCP. CM placed resources in AVS. Tatyana Tang RN, [facility] Clinical Junior Java Developer Emergency Department [phone] Pt reports that he took one of his home supply norco 5/325 at 0230. ED Attending Chief complaint: No chief complaint on file. Krysten Crook is a 39 y.o. male who presents with a rash. Hx of HTN and HLD IgA vasculitis for the past month. Etiology strep. Referred by Dermatology for subspecialty management. He states that his wounds are improving. [place] 2[place] hours away. No specialists there to manage. Past Medical History: Diagnosis Date Essential hypertension, benign Hyperlipidemia No past surgical history on file. Social History Socioeconomic History Marital status: Not on file Spouse name: Not on file Number of children: Not on file Years of education: Not on file Highest education level: Not on file Occupational History Not on file Tobacco Use Smoking status: Not on file Smokeless tobacco: Not on file Substance and Sexual Activity Alcohol use: Not on file Drug use: Not on file Sexual activity: Not on file Other Topics Concern Not on file Social History Narrative Not on file Social Determinants of Health Financial Resource Strain: Not on file Food Insecurity: Not on file Transportation Needs: Not on file Physical Activity: Not on file Stress: Not on file Social Connections: Not on file Intimate Partner Violence: Not on file Housing Stability: Not on file No family history on file. BP 150/84 Pulse 100 Temp 98 F (36.7 C) (Oral) Resp 18 SpO2 98% Reviewed PMH and PSH as well as medical record. ROS: Pertinent positives and negative are included in HPI. All other review of systems were reviewed and are negative unless otherwise documented. Pertinent Physical Exam findings: No acute respiratory distress, rash Plan Vasculitis rash: continue prednisone 40 mg, admission to CDU to expedite specialty evaluation Workup: CBC, BMP, CRP, ESR, UA, IgA levels I do not appreciate any signs of an infection Medical Decision Making Amount and/or Complexity of Data Reviewed Labs: ordered. Risk OTC drugs. On 06/09/2024 I saw and examined the patient. I discussed the history and examination with the resident and agree with the plan of care. I reviewed imaging and labs that were obtained. Results for orders placed or performed during the hospital encounter of 06/09/24 [facility] 7 - ED Result Value Ref Range Sodium 135 135 - 145 mmol/L Potassium 4.3 3.5 - 5.0 mmol/L Chloride 102 98 - 108 mmol/L CO2 26 21 - 31 mmol/L Glucose 115 (H) 70 - 99 mg/dL BUN 30 (H) 7 - 25 mg/dL Creatinine 0.92 0.70 - 1.30 mg/dL Bun/Crea Ratio 33 Osmolality (Calculated) 291 278 - 305 mOsm/kg Anion Gap 11 7 - 17 mmol/L eGFR, CKD-EPI, Male >90 >=60 mL/min/1.73m2 CBC AND ELECTRONIC DIFF Result Value Ref Range WBC Count 17.22 (H) 3.73 - 10.10 K/uL RBC Count 4.83 4.38 - 5.83 M/uL Hemoglobin 13.8 13.4 - 16.8 g/dL Hematocrit 42.1 39.6 - 48.8 % Mean Cell Volume 87.2 79.0 - 94.5 fL Mean Cell Hgb 28.6 26.1 - 33.3 pg Mean Cell Hgb Conc 32.8 31.9 - 36.5 g/dL RBC Distribution 13.2 10.9 - 14.3 % Platelet Count 351 (H) 146 - 337 K/uL Mean Platelet Volume 8.8 8.7 - 12.3 fL DIFF STATUS Electronic Differential Segs + Bands Auto 76.2 % Immature Grans % 0.4 % Lymphocyte % Auto 17.0 % Monocyte % Auto 5.9 % Eosinophil % Auto 0.3 % Basophil % Auto 0.2 % Nucleated RBC 0.0 <=0.2 /100 WBC Segs + Bands,Absolute Auto 13.14 (H) 1.57 - 6.19 K/uL Immature Grans Absolute 0.07 <=0.07 K/uL Abs Lymph Auto 2.92 0.83 - 3.57 K/uL Abs [place] Auto 1.01 (H) 0.24 - 0.93 K/uL Abs Eos Auto 0.05 0.00 - 0.48 K/uL Abs Baso Auto <0.04 0.00 - 0.09 K/uL No orders to display ED Course as of 06/10/24 0000 WedJun 09, 2024 2359 Hypertensive and tachycardic otherwise stable 2359 Leukocytosis to 17.2, thrombocytosis of 351 Vargas Woods MD 06/10/24 0622 DEPARTMENT OF EMERGENCY MEDICINE CHIEF COMPLAINT Vasculitis HPI Krysten Crook is a 39 y.o. male with PMH HTN, HLD who presents with IgA vasculitis. Patient has had vasculitis of the bilateral lower extremities for the last 1 month. He has been seeing a silo erector in his hometown which [place] approximately 2[place]2 hours away. Tag Meter Operator has prescribed him a prednisone taper with 40 daily and will be going to 20 daily this week. He also had a punch biopsy obtained and was told that his vasculitis was due to strep. However, his vasculitis has not significantly improved while being on his prednisone. Per patient's report, silo erector for him to the emergency department for evaluation by vascular specialist. Denies any abdominal pain, chest pain, UTI symptoms. Denies any URI symptoms. Does state that the lesions on his right leg appear to be somewhat improved though there are some new lesions as well. REVIEW OF SYSTEMS Review of Systems Constitutional: Negative for chills and fever. Respiratory: Negative for cough, sputum production, shortness of breath and wheezing. Cardiovascular: Negative for chest pain, palpitations and leg swelling. Gastrointestinal: Negative for diarrhea, nausea and vomiting. PAST MEDICAL HISTORY Past Medical History: Diagnosis Date Essential hypertension, benign Hyperlipidemia SURGICAL HISTORY No past surgical history on file. CURRENT MEDICATIONS No current facility-administered medications for this encounter. No current outpatient medications on file. ALLERGIES Allergies Allergen Reactions Keflex [Cephalexin] Hives FAMILY HISTORY No family history on file. SOCIAL HISTORY Social History Socioeconomic History Marital status: Spouse name: Not on file Number of children: Not on file Years of education: Not on file Highest education level: Not on file Occupational History Not on file Tobacco Use Smoking status: Not on file Smokeless tobacco: Not on file Substance and Sexual Activity Alcohol use: Not on file Drug use: Not on file Sexual activity: Not on file Other Topics Concern Not on file Social History Narrative Not on file Social Determinants of Health Financial Resource Strain: Not on file Food Insecurity: Not on file Transportation Needs: Not on file Physical Activity: Not on file Stress: Not on file Social Connections: Not on file Intimate Partner Violence: Not on file Housing Stability: Not on file PHYSICAL EXAM BP 150/78 Pulse 86 Temp 98 F (36.7 C) (Oral) Resp 18 SpO2 92% Physical Exam Constitutional: General: He is not in acute distress. Appearance: Normal appearance. He is not toxic-appearing or diaphoretic. HENT: Head: Normocephalic and atraumatic. Eyes: Extraocular Movements: Extraocular movements intact. Cardiovascular: Rate and Rhythm: Normal rate and regular rhythm. Heart sounds: Normal heart sounds. Pulmonary: Effort: Pulmonary effort is normal. Breath sounds: Normal breath sounds. Abdominal: General: Abdomen is flat. Palpations: Abdomen is soft. Musculoskeletal: Cervical back: Normal range of motion. Skin: General: Skin is warm and dry. Findings: Rash present. Neurological: Mental Status: He is alert. ED COURSE & MEDICAL DECISION MAKING Pertinent Labs & Imaging studies, if performed, reviewed. (See chart for details) Medication list reviewed. Assessment: Krysten Crook is a 39 y.o. male with PMH HTN, HLD who presents with IgA vasculitis. Initial Plan: Orders Placed This Encounter RAINBOW DRAW CBC, DIFF, PLATELET CHEM 7 - ED GOLD TOP TUBE MINT GREEN TOP TUBE LAVENDER TOP TUBE LT BLUE TOP TUBE CBC AND ELECTRONIC DIFF SEDIMENTATION RATE, AUTOMATED C REACTIVE PROTEIN IGA URINALYSIS REFLEX TO CULTURE URINALYSIS REFLEX TO CULTURE PERFORMABLE EXTRA MICRO ED Course and Medical Decision Making: Differential Diagnosis includes but is not limited to: Henoch-Schoenlein purpura, vasculitis, JAYRO, electrolyte abnormality Medical Decision Making Amount and/or Complexity of Data Reviewed Labs: ordered. Initial Plan: Afebrile and hemodynamically stable. His labs are not indicative of any JAYRO in the setting of his vasculitis. Physical exam does show lesions that are consistent with vasculitis. As patient lives far away and would not be able to follow up with a vascular specialist in a reasonable time, we will place him in the observation unit for evaluation by Rheumatology and Dermatology here. No orders to display Impression: vasculitis Disposition: obs Patient Krysten Crook [id number] to be placed in observation unit for vasculitis. Patient is agreeable to being placed int he EDOU (yes) Results of pertinent labs: no acute findings Results of pertinent Imaging: no imaging EDOU Problem List: 1. vasculitis : Plan of care: rheumatology and dermatology consult This patient was staffed with the ED attending, and the plan was mutually agreed upon. Dictation software was used to write this note. Attempts were made at proofreading; however, some errors still occur. Yanna Vera MD Resident 06/10/24 0205 Bed: E017 Expected date: Expected time: Means of arrival: Comments: triage Pt arrives with IgA vasculitis. Pt was referred to [facility] for consult with vascular and admission. Pt has no other complaints at this time. documented in this encounter [facility] 06-10-2024 Emergency department Note Received report and reviewed patient's chart. Plan of care discussed with EDOU Attending and Midlevel Provider. Plan: Derm and Rheum consults. This CM will remain available to assist with further patient needs. Patient listed as having no PCP. CM placed resources in AVS. Tatyana Tang RN, [facility] Clinical Junior Java Developer Emergency Department [phone] [facility] 06-10-2024 Emergency department Note Pt reports that he took one of his home supply norco 5/325 at 0230. [facility] 06-10-2024 Progress note Formatting of t his note is different from the original. DEPARTMENT OF EMERGENCY MEDICINE CHIEF COMPLAINT No chief complaint on file. HISTORY OF PRESENT ILLNESS Krysten Crook is a 39 y.o. male was appropriately risk stratified for observation level of care and was placed in the EDOU per General Observation Protocol protocol. Patient is a 39-year-old male with a past medical history of hypertension and hyperlipidemia who presented to the emergency department with complaints of a bilateral lower extremity rash, ongoing over the course of the past 1 month. Patient has been following closely with the dermatology team, and a punch biopsy was performed on 05/17/2024 that showed the rash was IgA vasculitis. Patient has undergone a steroid taper from his silo erector with no relief of symptoms, at which point his silo erector has now advised him to come to the emergency department for specialist evaluation (dermatology and rheumatology). Patient denies any systemic symptoms, including but not limited to, fever, chills, chest pain, shortness of breath, GI complications, urinary symptoms, or neurologic changes. No other complaints or concerns at this time. Personal, surgical, family, and social history reviewed with patient. REVIEW OF SYSTEMS ROS All Other Systems Were Reviewed And Negative Unless Otherwise Noted PAST MEDICAL HISTORY Past Medical History Reviewed, Contributory Findings Include: See below and above in HPI, no other endorsed PMH per patient. Past Medical History: Diagnosis Date Essential hypertension, benign Hyperlipidemia SURGICAL HISTORY Past Surgical History Reviewed, Contributory Findings Include: No other endorsed surgical history per patient. No past surgical history on file. MEDICATIONS GIVEN IN THE ED Medications Acetaminophen (TYLENOL) tablet 650 mg (has no administration in time range) alum/mag hydrox.-simethicone oral suspension 30 mL (has no administration in time range) ALLERGIES Allergies Allergen Reactions Keflex [Cephalexin] Hives No known or endorsed food or drug allergies per patient. FAMILY HISTORY Family History Reviewed, Contributory Findings Include: No other endorsed family history per patient. No family history on file. SOCIAL HISTORY Social History Reviewed, Contributory Findings Include: No other endorsed social history per patient. Social History Socioeconomic History Marital status: Spouse name: Not on file Number of children: Not on file Years of education: Not on file Highest education level: Not on file Occupational History Not on file Tobacco Use Smoking status: Not on file Smokeless tobacco: Not on file Substance and Sexual Activity Alcohol use: Not on file Drug use: Not on file Sexual activity: Not on file Other Topics Concern Not on file Social History Narrative Not on file Social Determinants of Health Financial Resource Strain: Not on file Food Insecurity: Not on file Transportation Needs: Not on file Physical Activity: Not on file Stress: Not on file Social Connections: Not on file Intimate Partner Violence: Not on file Housing Stability: Not on file PHYSICAL EXAM BP 150/78 Pulse 86 Temp 98 F (36.7 C) (Oral) Resp 18 SpO2 92% Physical Exam Skin: Comments: Bilateral lower extremity rash, which does appear to be consistent with a vasculitis. EDOU COURSE & MEDICAL DECISION MAKING Risk stratification appropriate for observation level of care. Patient was placed in the EDOU per the General Observation Protocol protocol. I reviewed the patients' medical records and nursing notes and noted their allergies, past medical history, and previous visits. The patient received the following interventions in the ED to date: Lab work obtained, consisting of a CBC, chemistry panel, ESR, CRP, and IgA level. Labs significant for leukocytosis of 17.22. In the EDOU, patient will undergo consultations by both with the dermatology and rheumatology teams. Disposition to be dependent on recommendations. While in the EDOU we will continue to check, monitor and reassess patient and alter our plan as clinically appropriate. This is a non-shared visit on 06/10/2024. The patient will be staffed with the observation attending during morning rounds. Medical Decision Making Amount and/or Complexity of Data Reviewed Labs: ordered. Risk OTC drugs. Electronically signed by: Chaz Hair PA-C, 06/10/2024 2:35 AM [facility] Work Phone: 06-10-2024 Physician Emergency department Note ED Attending Chief complaint: No chief complaint on file. Krysten Crook is a 39 y.o. male who presents with a rash. Hx of HTN and HLD IgA vasculitis for the past month. Etiology strep. Referred by Dermatology for subspecialty management. He states that his wounds are improving. Lives 2.5 hours away. No specialists there to manage. Past Medical History: Diagnosis Date Essential hypertension, benign Hyperlipidemia No past surgical history on file. Social History Socioeconomic History Marital status: Not on file Spouse name: Not on file Number of children: Not on file Years of education: Not on file Highest education level: Not on file Occupational History Not on file Tobacco Use Smoking status: Not on file Smokeless tobacco: Not on file Substance and Sexual Activity Alcohol use: Not on file Drug use: Not on file Sexual activity: Not on file Other Topics Concern Not on file Social History Narrative Not on file Social Determinants of Health Financial Resource Strain: Not on file Food Insecurity: Not on file Transportation Needs: Not on file Physical Activity: Not on file Stress: Not on file Social Connections: Not on file Intimate Partner Violence: Not on file Housing Stability: Not on file No family history on file. BP 150/84 Pulse 100 Temp 98 F (36.7 C) (Oral) Resp 18 SpO2 98% Reviewed PMH and PSH as well as medical record. ROS: Pertinent positives and negative are included in HPI. All other review of systems were reviewed and are negative unless otherwise documented. Pertinent Physical Exam findings: No acute respiratory distress, rash Plan Vasculitis rash: continue prednisone 40 mg, admission to CDU to expedite specialty evaluation Workup: CBC, BMP, CRP, ESR, UA, IgA levels I do not appreciate any signs of an infection Medical Decision Making Amount and/or Complexity of Data Reviewed Labs: ordered. Risk OTC drugs. On 06/09/2024 I saw and examined the patient. I discussed the history and examination with the resident and agree with the plan of care. I reviewed imaging and labs that were obtained. Results for orders placed or performed during the hospital encounter of 06/09/24 [facility] 7 - ED Result Value Ref Range Sodium 135 135 - 145 mmol/L Potassium 4.3 3.5 - 5.0 mmol/L Chloride 102 98 - 108 mmol/L CO2 26 21 - 31 mmol/L Glucose 115 (H) 70 - 99 mg/dL BUN 30 (H) 7 - 25 mg/dL Creatinine 0.92 0.70 - 1.30 mg/dL Bun/Crea Ratio 33 Osmolality (Calculated) 291 278 - 305 mOsm/kg Anion Gap 11 7 - 17 mmol/L eGFR, CKD-EPI, Male >90 >=60 mL/min/1.73m2 CBC AND ELECTRONIC DIFF Result Value Ref Range WBC Count 17.22 (H) 3.73 - 10.10 K/uL RBC Count 4.83 4.38 - 5.83 M/uL Hemoglobin 13.8 13.4 - 16.8 g/dL Hematocrit 42.1 39.6 - 48.8 % Mean Cell Volume 87.2 79.0 - 94.5 fL Mean Cell Hgb 28.6 26.1 - 33.3 pg Mean Cell Hgb Conc 32.8 31.9 - 36.5 g/dL RBC Distribution 13.2 10.9 - 14.3 % Platelet Count 351 (H) 146 - 337 K/uL Mean Platelet Volume 8.8 8.7 - 12.3 fL DIFF STATUS Electronic Differential Segs + Bands Auto 76.2 % Immature Grans % 0.4 % Lymphocyte % Auto 17.0 % Monocyte % Auto 5.9 % Eosinophil % Auto 0.3 % Basophil % Auto 0.2 % Nucleated RBC 0.0 <=0.2 /100 WBC Segs + Bands,Absolute Auto 13.14 (H) 1.57 - 6.19 K/uL Immature Grans Absolute 0.07 <=0.07 K/uL Abs Lymph Auto 2.92 0.83 - 3.57 K/uL Abs [place] Auto 1.01 (H) 0.24 - 0.93 K/uL Abs Eos Auto 0.05 0.00 - 0.48 K/uL Abs Baso Auto <0.04 0.00 - 0.09 K/uL No orders to display ED Course as of 06/10/24 0000 WedJun 09, 2024 2359 Hypertensive and tachycardic otherwise stable 2359 Leukocytosis to 17.2, thrombocytosis of 351 Vargas Woods MD 06/10/24 0622 [facility] Work Phone: 06-09-2024 Physician Emergency department Note DEPARTMENT OF EMERGENCY MEDICINE CHIEF COMPLAINT Vasculitis HPI Krysten Crook is a 39 y.o. male with PMH HTN, HLD who presents with IgA vasculitis. Patient has had vasculitis of the bilateral lower extremities for the last 1 month. He has been seeing a silo erector in his hometown which is approximately 2[place]/2 hours away. Tag Meter Operator has prescribed him a prednisone taper with 40 daily and will be going to 20 daily this week. He also had a punch biopsy obtained and was told that his vasculitis was due to strep. However, his vasculitis has not significantly improved while being on his prednisone. Per patient's report, silo erector for him to the emergency department for evaluation by vascular specialist. Denies any abdominal pain, chest pain, UTI symptoms. Denies any URI symptoms. Does state that the lesions on his right leg appear to be somewhat improved though there are some new lesions as well. REVIEW OF SYSTEMS Review of Systems Constitutional: Negative for chills and fever. Respiratory: Negative for cough, sputum production, shortness of breath and wheezing. Cardiovascular: Negative for chest pain, palpitations and leg swelling. Gastrointestinal: Negative for diarrhea, nausea and vomiting. PAST MEDICAL HISTORY Past Medical History: Diagnosis Date Essential hypertension, benign Hyperlipidemia SURGICAL HISTORY No past surgical history on file. CURRENT MEDICATIONS No current facility-administered medications for this encounter. No current outpatient medications on file. ALLERGIES Allergies Allergen Reactions Keflex [Cephalexin] Hives FAMILY HISTORY No family history on file. SOCIAL HISTORY Social History Socioeconomic History Marital status: Spouse name: Not on file Number of children: Not on file Years of education: Not on file Highest education level: Not on file Occupational History Not on file Tobacco Use Smoking status: Not on file Smokeless tobacco: Not on file Substance and Sexual Activity Alcohol use: Not on file Drug use: Not on file Sexual activity: Not on file Other Topics Concern Not on file Social History Narrative Not on file Social Determinants of Health Financial Resource Strain: Not on file Food Insecurity: Not on file Transportation Needs: Not on file Physical Activity: Not on file Stress: Not on file Social Connections: Not on file Intimate Partner Violence: Not on file Housing Stability: Not on file PHYSICAL EXAM BP 150/78 Pulse 86 Temp 98 F (36.7 C) (Oral) Resp 18 SpO2 92% Physical Exam Constitutional: General: He is not in acute distress. Appearance: Normal appearance. He is not toxic-appearing or diaphoretic. HENT: Head: Normocephalic and atraumatic. Eyes: Extraocular Movements: Extraocular movements intact. Cardiovascular: Rate and Rhythm: Normal rate and regular rhythm. Heart sounds: Normal heart sounds. Pulmonary: Effort: Pulmonary effort is normal. Breath sounds: Normal breath sounds. Abdominal: General: Abdomen is flat. Palpations: Abdomen is soft. Musculoskeletal: Cervical back: Normal range of motion. Skin: General: Skin is warm and dry. Findings: Rash present. Neurological: Mental Status: He is alert. ED COURSE & MEDICAL DECISION MAKING Pertinent Labs & Imaging studies, if performed, reviewed. (See chart for details) Medication list reviewed. Assessment: Krysten Crook is a 39 y.o. male with PMH HTN, HLD who presents with IgA vasculitis. Initial Plan: Orders Placed This Encounter RAINBOW DRAW CBC, DIFF, PLATELET CHEM 7 - ED GOLD TOP TUBE MINT GREEN TOP TUBE LAVENDER TOP TUBE LT BLUE TOP TUBE CBC AND ELECTRONIC DIFF SEDIMENTATION RATE, AUTOMATED C REACTIVE PROTEIN IGA URINALYSIS REFLEX TO CULTURE URINALYSIS REFLEX TO CULTURE PERFORMABLE EXTRA MICRO ED Course and Medical Decision Making: Differential Diagnosis includes but is not limited to: Henoch-Schoenlein purpura, vasculitis, JAYRO, electrolyte abnormality Medical Decision Making Amount and/or Complexity of Data Reviewed Labs: ordered. Initial Plan: Afebrile and hemodynamically stable. His labs are not indicative of any JAYRO in the setting of his vasculitis. Physical exam does show lesions that are consistent with vasculitis. As patient lives far away and would not be able to follow up with a vascular specialist in a reasonable time, we will place him in the observation unit for evaluation by Rheumatology and Dermatology here. No orders to display Impression: vasculitis Disposition: obs Patient Krysten Crook [id number] to be placed in observation unit for vasculitis. Patient is agreeable to being placed int he EDOU (yes) Results of pertinent labs: no acute findings Results of pertinent Imaging: no imaging EDOU Problem List: 1. vasculitis : Plan of care: rheumatology and dermatology consult This patient was staffed with the ED attending, and the plan was mutually agreed upon. Dictation software was used to write this note. Attempts were made at proofreading; however, some errors still occur. Yanna Vera MD Resident 06/10/24 0205 [facility] Work Phone: 06-09-2024 Emergency department Note Bed: E017 Expected date: Expected time: Means of arrival: Comments: triage [facility] 06-09-2024 Emergency department Note Pt arrives with IgA vasculitis. Pt was referred to [facility] for consult with vascular and admission. Pt has no other complaints at this time. [facility] 05-16-2024 Note . MICRO - Microbiology PROCEDURE: Blood Culture (bacterial) [*1] SOURCE: Blood BODY SITE: COLLECTED DATE/TIME: 05/11/2024 14:40 EDT RECEIVED DATE/TIME: 05/11/2024 18:59 EDT START DATE/TIME: 05/11/2024 18:59 EDT FREE TEXT SOURCE: FINAL REPORTS Final Report [] Verified Date/Time/Personnel: 05/16/2024 19:59 EDT Blood Culture: No Growth at 5 days. PRELIMINARY REPORTS Preliminary Report [] Verified Date/Time/Personnel: 05/11/2024 19:59 EDT Culture has been received in lab and is no growth to date. Routine cultures are held for 5 days. Performing Locations *1: This test was performed at: [facility], [address] [place] [address], [phone] , [facility] ([place]) 05-16-2024 Note . MICRO - Microbiology PROCEDURE: Blood Culture (bacterial) [*1] SOURCE: Blood BODY SITE: COLLECTED DATE/TIME: 05/11/2024 15:03 EDT RECEIVED DATE/TIME: 05/11/2024 18:58 EDT START DATE/TIME: 05/11/2024 18:59 EDT FREE TEXT SOURCE: FINAL REPORTS Final Report [] Verified Date/Time/Personnel: 05/16/2024 18:59 EDT Blood Culture: No Growth at 5 days. PRELIMINARY REPORTS Preliminary Report [] Verified Date/Time/Personnel: 05/11/2024 19:59 EDT Culture has been received in lab and is no growth to date. Routine cultures are held for 5 days. Performing Locations *1: This test was performed at: [facility], [address] [place] [address], [facility] , [facility] ([place]) Evaluation note Diagnosis Vasculitis- Primary Arteritis, unspecified [facility] W[facility] infection- Primary Posttraumatic wound infection not elsewhere classified [facility] Diagnosis Vasculitis (HCC)- Primary Arteritis, unspecified [facility] Diagnosis IgA mediated leukocytoclastic vasculitis (HCC)- Primary Allergic purpura 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) 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) Chronic venous hypertension (idiopathic) with ulcer of bilateral lower extremity (CODE) (HCC) Secondary lymphedema Other lymphedema [facility] Diagnosis IgA mediated leukocytoclastic vasculitis (HCC)- Primary Allergic purpura 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) 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) Chronic venous hypertension (idiopathic) with ulcer of bilateral lower extremity (CODE) (HCC) Secondary lymphedema Other [facility]hedema [facility] Wellness examination- Primary Screening for depression Encounter for screening examination for other mental health and behavioral disorders Encounter for immunization Need for other specified prophylactic vaccination against single bacterial disease Nicotine dependence, uncomplicated, unspecified nicotine product type IgA mediated leukocytoclastic vasculitis (HCC) Allergic purpura [facility] Diagnosis IgA mediated leukocytoclastic vasculitis (HCC)- Primary Allergic purpura 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) 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) Chronic venous hypertension (idiopathic) with ulcer of bilateral lower extremity (CODE) (HCC) Secondary lymphedema Other lymphedema [facility]* Diagnosis IgA mediated leukocytoclastic vasculitis (HCC)- Primary Allergic purpura 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) 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) Chronic venous hypertension (idiopathic) with ulcer of bilateral lower extremity (CODE) (HCC) Secondary lymphedema Other lymphedema [facility]* Diagnosis Nicotine dependence, uncomplicated, unspecified nicotine product type- Primary IgA mediated leukocytoclastic vasculitis (HCC) Allergic purpura Hypertension, unspecified type documented in this encounter [facility] noteNo assessment information availableWMarion Hospital Work Phone: Evaluation note* Diagnosis Hypertension, unspecified type- Primary IgA nephropathy Nephritis and nephropathy, not specified as acute or chronic, with unspecified pathological lesion in kidney IgA mediated leukocytoclastic vasculitis Allergic purpura documented in this encounter [facility] for referral (narrative)* Consultation (Routine) - New Request Specialty Diagnoses / Procedures Referred By Alban lugo Referred To Contact Dermatology Diagnoses Vasculitis Angela Drew APRN-CNP [address] [place] [phone] Referral ID Status Reason Start Date Expiration Date V isits Requested Visits Authorized [id number] New Request 06/10/2024 07/05/2025 1 1 [facility] for referral (narrative)No reason for referral information availableWMarion Hospital Work Phone: Summary Purpose Family History No Family History Records Found Relationship Condition Age at Onset Recorded Date/T mateus grandfather Malignant neoplasm Unknown Hypertension Unknown Diabetes mellitus Unknown Advance Directives No Advanced Directives Records FoundNo Advanced Directives Records FoundNo Advanced Directives Records FoundNo Advanced Directives Records FoundNo Advanced Directives Records FoundNo Advanced Directives Records FoundNo Advanced Directives Records FoundNo Advanced Directives Records Found Chief Complaint and Reason for Visit Chief Complaint Admit Date PAIN- COPY PCP December 25, 2024 9:4 7am Chief Complaint Admit Date PAIN- COPY PCP April 24, 2025 2:01p m Chief Complaint Admit Date PAIN- COPY PCP April 24, 2025 2:01p m Possible Liver Cirrhosis May 24 8:44am Additional Source Comments (unrecognized sect ion and content) No Status Records FoundNo Status Records FoundNo Status Records FoundNo Status Records FoundNo Status Records FoundNo Status Records FoundNo Status Records FoundNo Status Records Found INFORMATION SOURCE (unrecogn ized section and content) DATE CREATED AUTHOR 12/04/2019 [facility] DATE CREATED AUTHOR AUTHOR'S ORGANIZ ATION 05/17/2024 [facility] DATE CREATED AUTHOR AUTHOR'S ORGANIZ ATION 05/19/2024 [facility] ([place]) DATE CREATED AUTHOR AUTHOR'S ORGANIZ ATION 06/22/[address] [facility] DATE CREATED AUTHOR AUTHOR'S ORGANIZ ATION 01/03/2025 [facility] DATE CREATED AUTHOR AUTHOR'S ORGANIZ ATION 04/08/2025 [facility] DATE CREATED AUTHOR AUTHOR'S ORGANIZ ATION 04/09/2025 [facility] DATE CREATED AUTHOR AUTHOR'S ORGANIZ ATION 06/12/2025 [facility] Scheduled Active and Recently Administ ered Medications (unrecognized section and content) Medication Order 06/08/2024 06/09/2024 06/10/2024 Ibuprofen (MOTRIN) tablet 600 mg (COMPLETED) 600 mg, Oral, ONCE, 1 dose, On 06/10/24 at 1345, Give with food 1326 (Given - Provid er: Araseli Alexander RN) PRN Medication Order 06/08/2024 06/09/2024 06/10/2024 Acetaminophen (TYLENOL) tablet 650 mg 650 mg, Oral, EVERY 4 HOURS NEEDED, Starting on 06/10/24 at 0235, Until 06/10/24 at 1706, Mild Pain, Oral temp > 100.4 F, Maximum dose of acetaminophen is 4000 mg from all sources in 24 hours. alum/mag hydrox.-simethicone oral suspension 30 mL 30 mL, Oral, EVERY 6 HOURS NEEDED, Starting on 06/10/24 at 0235, Until 06/10/24 at 1706, Indigestion, Per 5 mL is equivalent to: (Alum-Mag Hydroxide 200-225 mg and Simethicone 20 mg) and (Alum-Mag Hydroxide 200-200 mg and Simethicone 20 mg) Source Comments (unrecognize d section and content) In the event this informatio n is protected by the Federal Confidentiality of Alcohol and Drug Abuse Patient Records regulations: The Federal rules restrict any use of the information to criminally investigate or prosecute any alcohol or drug abuse patient.[facility] the event this information is protected by the Federal Confidentiality of Alcohol and Drug Abuse Patient Records regulations: The Federal rules restrict any use of the information to criminally investigate or prosecute any alcohol or drug abuse patient.[facility] the event this information is protected by the Federal Confidentiality of Alcohol and Drug Abuse Patient Records regulations: The Federal rules restrict any use of the information to criminally investigate or prosecute any alcohol or drug abuse patient.[facility] the event this information is protected by the Federal Confidentiality of Alcohol and Drug Abuse Patient Records regulations: The Federal rules restrict any use of the information to criminally investigate or prosecute any alcohol or drug abuse patient.[facility] the event this information is protected by the Federal Confidentiality of Alcohol and Drug Abuse Patient Records regulations: The Federal rules restrict any use of the information to criminally investigate or prosecute any alcohol or drug abuse patient.[facility] the event this information is protected by the Federal Confidentiality of Alcohol and Drug Abuse Patient Records regulations: The Federal rules restrict any use of the information to criminally investigate or prosecute any alcohol or drug abuse patient.[facility] the event this information is protected by the Federal Confidentiality of Alcohol and Drug Abuse Patient Records regulations: The Federal rules restrict any use of the information to criminally investigate or prosecute any alcohol or drug abuse patient.[facility] the event this information is protected by the Federal Confidentiality of Alcohol and Drug Abuse Patient Records regulations: The Federal rules restrict any use of the information to criminally investigate or prosecute any alcohol or drug abuse patient.[facility] the event this information is protected by the Federal Confidentiality of Alcohol and Drug Abuse Patient Records regulations: The Federal rules restrict any use of the information to criminally investigate or prosecute any alcohol or drug abuse patient.[facility] the event this information is protected by the Federal Confidentiality of Alcohol and Drug Abuse Patient Records regulations: The Federal rules restrict any use of the information to criminally investigate or prosecute any alcohol or drug abuse patient.[facility] the event this information is protected by the Federal Confidentiality of Alcohol and Drug Abuse Patient Records regulations: The Federal rules restrict any use of the information to criminally investigate or prosecute any alcohol or drug abuse patient.[facility]In the event this information is protected by the Federal Confidentiality of Alcohol and Drug Abuse Patient Records regulations: The Federal rules restrict any use of the information to criminally investigate or prosecute any alcohol or drug abuse patient.[facility]In the event this information is protected by the Federal Confidentiality of Alcohol and Drug Abuse Patient Records regulations: The Federal rules restrict any use of the information to criminally investigate or prosecute any alcohol or drug abuse patient.[facility]In the event this information is protected by the Federal Confidentiality of Alcohol and Drug Abuse Patient Records regulations: The Federal rules restrict any use of the information to criminally investigate or prosecute any alcohol or drug abuse patient.[facility]In the event this information is protected by the Federal Confidentiality of Alcohol and Drug Abuse Patient Records regulations: The Federal rules restrict any use of the information to criminally investigate or prosecute any alcohol or drug abuse patient.[facility] Reason for Visit (unrecogniz ed section and content) Reason Comments Sores on legs Reason Comments Wound Check Patient was in to se sameera Do on 06/29/2024. He is present to have the wounds checked. He states the wounds are improving. He is needing a note to excuse him from work because he isn't able to wear boots. Reason Comments Wound Check Reason Comments Wound Care Reason Comments New Patient Pt here to establish with a new pcp. Reason Comments Appointment Reason Comments Appointment 10/25/24 No Show Reason Comments Follow Up Reason Onset Date Comments Refill Request 11/27/2024 Reason Onset Date Comments Refill Request 03/15/2025 Care Teams (unrecognized sec tion and content) Spindraw Operator Relationship Specialty Start Date End Date Rob Alba DPM [address] [place] [address] Podiatry 07/07/24 Spindraw Operator Relationship Specialty Start Date End Date Rob Alba DPM [address] [address] Podiatry 07/07/24 Spindraw Operator Relationship Specialty Start Date End Date Rob Alba DPM [address] [place] [address] Podiatry 07/07/24 Spindraw Operator Relationship Specialty Start Date End Date Huy Marquez MD [address] [place] [address] [place] [address] PCP - General Family Medicine 08/02/24 Rob Alba DPM [address] [place] [address] Podiatry 07/07/24 Spindraw Operator Relationship Specialty Start Date End Date Huy Marquez MD [address] [place] [address] [place] [address] PCP - General Family Medicine 08/02/24 Rob Alba DPM [address] [place] [address] Podiatry 07/07/24 Spindraw Operator Relationship Specialty Start Date End Date Huy Marquez MD [address] [place] [address] [place] [address] PCP - General Family Medicine 08/02/24 Rob Alba DPM [address] [place] [address] Podiatry 07/07/24 Spindraw Operator Relationship Specialty Start Date End Date Huy Marquez MD [address] [place] [address] [place] [address] PCP - General Family Medicine 08/02/24 Rob Alba DPM [address] [place] [address] Podiatry 07/07/24 Spindraw Operator Relationship Specialty Start Date End Date Huy Marquez MD [address] [place] [address] [place] [address] PCP - General Family Medicine 08/02/24 Rob Alba DPM [address] [place] [address] Podiatry 07/07/24 Spindraw Operator Relationship Specialty Start Date End Date Huy Marquez MD [address] [place] [address] [address] [place], [place] [id number] PCP - General Family Medicine 08/02/24 Rob Alba DPM [address] [id number] Podiatry 07/07/24 Spindraw Operator Relationship Specialty Start Date End Date Huy Marquez MD [address] [place] [address] [address] [place], [place] [id number] PCP - General Family Medicine 08/02/24 Rob Alba DPM [address] [id number] Podiatry 07/07/24 Team Status: Active Member Role Status Dates Tavon Rollins ERP PROJECT MANAGER, ERP PROJECT MANAGER-C Primary Care Provider Active Team Status: Inactive Member Role Status Dates Tavon Rollins ERP PROJECT MANAGER, ERP PROJECT MANAGER-C Primary Care Provider Active Start: December 25, 2024 End: December 25, 2024 Dr. Edith Gore MD Attending Provider Active Start: December 25, 2024 End: December 25, 2024 Dr. Edith Gore MD Referring Provider Active Start: December 25, 2024 End: December 25, 2024 Spindraw Operator Relationship Specialty Start Date End Date Huy Marquez MD [address] [place] [address] [place] [address] PCP - General Family Medicine 08/02/24 Rob Alba DPM [address] [id number] Podiatry 07/07/24 Spindraw Operator Relationship Specialty Start Date End Date Huy Marquez MD [address] [place] [address] [place], [place] [id number] PCP - General Family Medicine 08/02/24 Rob Alba DPM [address] [place] [address] Podiatry 07/07/24 Team Status: Inactive Member Role Status Dates Tavon Rollins ERP PROJECT MANAGER, ERP PROJECT MANAGER-C Primary Care Provider Active Start: March 26, 2025 End: March 26, 2025 Dr. Cayla Logan MD Attending Provider Act alis Start: March 26, 2025 End: March 26, 2025 Dr. Cayla Logan MD Referring Provider Act alis Start: March 26, 2025 End: March 26, 2025 Team Status: Active Member Role/Relationship Status Dates Out of Town Doctor Primary Care Provider Active Team Status: Inactive Member Role/Relationship Status Dates Tavon Rollins NP, ERP PROJECT MANAGER-C Primary Care Provider Active Start: March 26, 2025 End: March 26, 2025 Dr. Cayla Logan MD Attending Provider Act alis Start: March 26, 2025 End: March 26, 2025 Dr. Cayla Logan MD Referring Provider Act alis Start: March 26, 2025 End: March 26, 2025 Team Status: Inactive Member Role/Relationship Status Dates Tavon Rollins NP, ERP PROJECT MANAGER-C Primary Care Provider Active Start: April 24, 2025 End: April 24, 2025 Dr. Edith Gore MD Attending Provider Active Start: April 24, 2025 End: April 24, 2025 Dr. Edith Gore MD Referring Provider Active Start: April 24, 2025 End: April 24, 2025 Team Status: Inactive Member Role/Relationship Status Dates Tavon Rollins NP, ERP PROJECT MANAGER-C Referring Provider Active Start: May 24, 2025 End: May 24, 2025 Dr. Jabari Reese MD Attending Provider Active Start: May 24, 2025 End: May 24, 2025 Out of Town Doctor Primary Care Provider Active Start: May 24, 2025 End: May 24, 2025 Goals (unrecognized section and content) Goals may be documented in a n alternate sectionGoals may be documented in an alternate sectionGoals may be documented in an alternate sectionGoals may be documented in an alternate section FOR RECORDS PERTAINING TO PATIENTS WHO ARE OR HAVE BEEN ENROLLED IN A CHEMICAL DEPENDENCY/SUBSTANCEABUSE PROGRAM, SOME INFORMATION MAY BE OMITTED. This clinical summary was aggregated from multiple sources. Caution should be exercised in using it in the provision of clinical care. This summary normalizes information from multiple sources, and as a consequence, information in this document may materially change the coding, format and clinical context of patient data. In addition, data may be omitted in some cases. CLINICAL DECISIONS SHOULD BE BASED ON THE PRIMARY CLINICAL RECORDS. [facility]. provides no warranty or guarantee of the accuracy or completeness of information in this document.
[2025-06-20 07:20] LABS: Mucous, Urine 0 SEEN /hpf (<or=2+); Squamous Epithelial Cells - UA 0 SEEN /hpf (0-5)
[2025-06-20 10:17] LABS: Color, Urine Yellow (Yellow); Glucose, Dipstick 1000 mg/dl (Normal); Ketone-Dipstick Negative (Negative); Leukocyte Esterase-Dipstick Negative /ul (Negative); Nitrite-Dipstick Negative (Negative); Occult Blood-Urine 150 /ul (Negative); Protein-Dipstick 30 mg/dl (Negative); Specific Gravity, Urine 1.020 (1.002-1.030); Urine Bilirubin Dipstick Negative (Negative)
[2025-06-20 10:20] LABS: Prothrombin Time (Protime)PT. 12.8 SECONDS (11.7-14.9)
[2025-06-20 10:24] LABS: Creatinine, Urine (random) 133.00 mg/dL (39.00-259.00); Protein, Urine (Random) 24.9 mg/dL (0.0-12.0); Protein:Creat Ratio 187 mg/g CRE (0-200)
[2025-06-20 10:52] LABS: Hematocrit 44.3 % (40-54); Hemoglobin 14.4 g/dL (13.0-16.5); Immature Granulocytes Count 0.070 X10^3/uL (0.0-0.0); Mean Corp Hgb Conc 32.5 g/dL (32-36); Mean Corpuscular Volume 86.4 fL (80-94); Mean Platelet Vol. 9.4 fl (6.2-12.0); NRBC Flagged by Analyzer 0 % (0-5); Platelet Count 322 K/mm3 (150-450); RBC Distribution Width CV 13.4 % (11.6-14.6); RBC Distribution Width SD 42.2 fl (35.1-43.9); Red Blood Count 5.13 M/mm3 (4.6-6.2); White Blood Count 12.7 K/mm3 (4.4-11.0)
[2025-06-20 10:57] LABS: Red Blood Cells-Urine 5-10 SEEN /hpf (0-5)
[2025-06-20 11:04] LABS: AST(SGOT) 23 U/L (<=37); Alanine Aminotransfer ALT/SGPT 40 U/L (<=46); Albumin, Serum 4.0 g/dL (3.5-5.0); Alkaline Phosphatase 64 U/L (40-129); Anion Gap 15 (5-15); BUN 21 mg/dL (4-19); BUN/Creat Ratio 20.1 RATIO (10-20); Calcium,Total 9.9 mg/dL (7.6-11.0); Carbon Dioxide 19.6 mmol/L (21.0-32.0); Chloride 103 mmol/L (98-108); Cholesterol 225 mg/dL (<=200); Ferritin 82 ng/mL (37-417); Globulin 2.8 g/dL (2.2-4.2); Glucose 104 mg/dL (70-99); HIV Nonreactive (Nonreactive); Low Density Lipoprotein Calc. 128 mg/dL; Potassium 3.6 mmol/L (3.3-5.1); Triglycerides 188 mg/dL; Very Low Density Lipoprotein 38 mg/dL (5-40); Vitamin D,25 Hydroxy 58.7 ng/mL (30-100); cholesterol:hdl ratio screen 3.76
[2025-06-20 11:39] LABS: CRP 20.50 mg/L (0.0-3.0); Iron 45 ug/dL (65-175); Iron Binding Capacity,Total 294 ug/dL (250-450); Iron Binding Capacity,Unsat 249 ug/dL (228-428); LDH 282 U/L (87-241)
[2025-06-21 14:08] LABS: ANTINUCLEAR ANTIBODIES DIRECT Negative (Negative)
[2025-06-24 18:07] LABS: Albumin 3.5 g/dL (2.9-4.4); Anti-Smooth Muscle ABS 6 Units (0-19); Copper, Serum or Plasma 113 ug/dL (69-132); GGTP 49 IU/L (0-65); Gamma Globulin 0.9 g/dL (0.4-1.8); HEPATITIS B SURFACE AG Negative (Negative); Hep C Antibodies Non Reactive (Non Reactive); Immunoglobulin A 201 mg/dL (90-386); Immunoglobulin G 821 mg/dL (603-1613); Immunoglobulin M 103 mg/dL (20-172); PROEL- TOTAL PROTEIN 6.6 g/dL (6.0-8.5)
== END | disposition home or self-care (01) ==
LOC: MTLAB 07:06
PROVIDERS: Internal Medicine; Referring Provider Student in an Organized Health Care Education/Training Program; Visit Provider Student in an Organized Health Care Education/Training Program
DX: I10 Essential (primary) hypertension (principal); D63.1 Anemia in chronic kidney disease; E21.1 Secondary hyperparathyroidism, not elsewhere classified; K74.00 Hepatic fibrosis, unspecified; R74.8 Abnormal levels of other serum enzymes; N12 Tubulo-interstitial nephritis, not specified as acute or chronic
CPT/HCPCS: 36415; 80053; 80061; 80074; 81001; 82306; 82390; 82525; 82570; 82728; 82784; 82785; 82977; 83036; 83516; 83540; 83550; 83615; 84156; 84165; 84443; 85025; 85610; 85652; 86038; 86140; 86225; 86255; 86334; 86703; 86706

== ENCOUNTER → 2025-07-02 | Outpatient (CLI) | payer OTHER, SELFPAY ==
--- NOTE | 2025-07-02 07:10 | US_ITS ---
PROCEDURE: ABD LIMITED W/ ELASTOGRAPHY REASON FOR EXAM: SUSPECTED LIVER FIBROSIS COMPARISON: None. TECHNIQUE: Procedure Code: [id number] Modality: US Procedure: ABD LIMITED W/ ELASTOGRAPHY Right upper quadrant abdominal ultrasound. [facility] ElastQ Imaging shear wave elastography for non-invasive assessment of liver tissue stiffness. [employer] EPIQ Elite. FINDINGS: LIVER: Size: Unremarkable Length: 17.2 cm Echotexture: Diffusely echogenic suggesting fatty infiltration Contour: Normal Lesions: None identified Elastography: EQI Med: 2.6 kPa EQI Med Moi: 0.92 m/s IQR/Med: 22 %* GALLBLADDER: Small amount of sludge is seen in the gallbladder lumen. COMMON BILE DUCT: Normal measuring 5 mm. . PANCREAS: Visualized portions are unremarkable. The distal body and tail are obscured by bowel gas. Visualized portions of the right kidney are unremarkable. No right upper quadrant ascites. US/ABD Limited w/ Elastography IMPRESSION: NO TO MILD HEPATIC FIBROSIS Diffuse fatty infiltration of the liver. Reference Values: SRU <1.37 m/s (5.7kPa): No to mild fibrosis 1.37 m/s - 2.2 m/s: Moderate to severe fibrosis >2.2 m/s (15kPa): Significant fibrosis / cirrhosis METAVIR Score F2 or higher: 1.34 m/s (5.7kPa) F3 or higher: 1.55 m/s (7.3kPa) F4: 1.80 m/s (10kPa) * If the IQR/Med is >30%, the variance in the measurements is a large and the a ccuracy of the measurement may be in question. Reading Location: [place] [address]
--- OUTSIDE RECORDS SUMMARY | 2025-07-02 07:30 | XMS RPT_ITS | CCD ---
Author Organization [facility] Care Team Providers Care Towboat Captain Name Role Phone Unavailable Primary Care Provider UnavailKRYSTEN Crespo Attending Unavailable CONSULT, IMMUNOLOGY/RHEUMATOLOGY Consulting Unavailable Unavailable Primary Care Provider Unavailjeremias Alba DPM, Rob Holly Unavailable Alma MARTINEZ, Huy Primary Care Provider [phone] DESMOND MARTINEZ, DR KULKARNI Attending Un available DRAKE BURNS MD Consulting Unavailable Ria MONREAL-C, Tavon Primary Care Provider Bao MARTINEZ, Dr. Sharma Attending Provider Bao MARTINEZ, Dr. Sharma Referring Provider Desmond MARTINEZ, Dr. Kulkarni Attending Provide r Desmond MARTINEZ, Dr. Kulkarni Referring Provide r CAYLA LOGAN MD Attending Unava ilCAYLA Irby MD Primary Care Unava ilCAYLA Irby MD Admitting Unava ilable SEAN GERMAIN DO Attending Unavailable SEAN GERMAIN [...] Primary Care Unavailable TAMRA DAVILA Attending Unavailable ALBA, ROB HOLLY Attending Unavailable PAGE, HUY Primary Care Unavailable ALBAROB Attending Unavailable PAGE, HUY Attending Unavailable PAGE, HUY Primary Care Unavailable ALBA, ROB HOLLY Attending Unavailable ALBA, ROB HOLLY Attending Unavailable HITANMAY Sutton Attending Unavailable HITANMAY Sutton Attending Unavailable PAGE, HUY Attending Unavailable PAGE, HUY Primary Care Unavailable PAGE, HUY Attending Unavailable PAGE, HUY Primary Care Unavailable ALBAROB Attending Unavailable PAGE, HUY Primary Care Unavailable PAGE, HUY Primary Care Unavailable CURRENT, ANNE Lugo Attending Unavailable Ria BRUSH TRIMMING MACHINE SETTER-C, Tavon Primary Care Provider Bao MARTINEZ, Dr. Sharma Attending Provider Dr. Edith Gore MD Referring Provider Ria BRUSH TRIMMING MACHINE SETTER-CTavon Referring Provider [phone] Hugh MARTINEZ, Dr. Barboza Attending Provider [facility] Doctor, Out of Primary Care Provider Unavai lable Bucktowarsinjg Bhavnish Attending Unavaila ble Bucktowarsinjg Bhavnish Referring Unavaila ble Ria BRUSH TRIMMING MACHINE SETTER, Tavon Primary Care Unavailable Ria BRUSH TRIMMING MACHINE SETTER, Tavon Primary Care Unavailable Edith Gore Attending Unavailable Edith Gore Referring Unavailable Ria BRUSH TRIMMING MACHINE SETTER, Tavon Primary Care Unavailable Edith Gore Attending Unavailable Edith Gore Referring Unavailable [facility] Doctor, Out of Primary Care Unavailable Jabari Reese Attending Unavailable Jabari Reese Referring Unavailable Ria BRUSH TRIMMING MACHINE SETTER, Tavon Primary Care Unavailable Edith Gore Attending Unavailable Edith Gore Referring Unavailable [facility] Doctor, Out of Primary Care Unavailable Jabari Reese Attending Unavailable Tavon Rollins NP Referring Unavailable [facility] Doctor, Out of Primary Care Unavailable Cayla Logan Attending Unavaila Cayla Cuello Referring Unavaila ble Allergies Allergy Classification Reported Allergen(s) Allergy Type Date of Onset Reaction(s) Facility (18 sources) Cephalexin; Translations: [CEPHALEXIN] Drug Allergy 06-09-2024 [facility] (1 source) Cephalexin Drug Allergy [facility] (1 source) Cephalexin Drug Allergy 05-24-2025 [facility] Repository Medications Current Medications Medication [...] Start: 01-04-2025 take 1 tablet by blas once daily dapagliflozin propanediol (FARXIGA) 10 mg [...] of lower limb] Onset: 08-10-2024 07-13-2024 Chronic Deficiency and other anemia (1 source) Anemia in chronic kidney disease; Translations: [Anemia in chronic kidney disease] Onset: 06-20-2025 Chronic Disorders of lipid metabolism (10 sources) Hypercholesterolemia; Translations: [Pure hypercholesterolemia, unspecified] Onset: 08-02-2024 08-02-2024 Chronic Essential hypertension (16 sources) Hypertensive disorder; Translations: [Essential (primary) hypertension] [...] Translations: [Secondary lymphedema] Onset: 08-10-2024 Chronic Other endocrine disorders (1 source) Secondary hyperparathyroidism, not elsewhere classified; Translations: [Secondary hyperparathyroidism, not elsewhere classified] Onset: 06-20-2025 Chronic Other injuries and conditions due to [...] fibrosis, unspecified; Translations: [Hepatic fibrosis, unspecified] Onset: 06-21-2025 Past or Other Problems Problem Classification Problem [...] Test Name Value Interpretation Reference Range Facility [facility] w/ Reflex Mult Confirmon 06-22-2025 ANTI-DNA (DS)AB TNP Normal [facility] Comment on above: Performed By: #### L 501.0900, L509.1000, L500.2500, L506.1001, L100.0100, L501.1400 #### [facility] [address] [place], [address] ANTI-SS-A TNP Normal [facility] Comment on above: Performed By: #### L 501.0900, L509.1000, L500.2500, L506.1001, L100.0100, L501.1400 #### [facility] [address] [place], [address] ANTI-SS-B TNP Normal [facility] Comment on above: Performed By: #### L 501.0900, L509.1000, L500.2500, L506.1001, L100.0100, L501.1400 #### [facility] [address] [facility] [place], [address] Anti-Mitochondrial ABon 09-0 -2024 ANTIMITOCHON AB <20.0 Normal 0.0-20.0 [facility] Comment on above: Result Comment: Nega tive 0.0 - 20.0 Equivocal 20.1 - 24.9 Positive >24.9 Mitochondrial (M2) Antibodies are found in 90-96% of patients with primary biliary cirrhosis. Performed By: #### L 501.0900, L509.1000, L500.2500, L506.1001, L100.0100, L501.1400 #### [facility] [address] [place], [address] CBC W/Diff, Automatedon 09-0 -2024 Absolute Lymph 3.37 X10 3/uL Normal 0.83-4.51 [facility] Comment on above: Performed By: #### L 501.0900, L509.1000, L500.2500, L506.1001, L100.0100, L501.1400 #### [facility] [address] [place], [address] Absolute Neut 8.3 X10 3/uL High 2.0-7.7 [facility] Comment on above: Performed By: #### L 501.0900, L509.1000, L500.2500, L506.1001, L100.0100, L501.1400 #### [facility] [address] [place], [address] Basophils/100 WBC (Bld) 0.6 % Normal 0-1 [facility] Comment on above: Performed By: #### L 501.0900, L509.1000, L500.2500, L506.1001, L100.0100, L501.1400 #### [facility] [address] [place], [address] Eosinophils/100 WBC (Bld) 0.6 % Normal 0-5 [facility] Comment on above: Performed By: #### L 501.0900, L509.1000, L500.2500, L506.1001, L100.0100, L501.1400 #### [facility] [address] [place], [address] Erythrocyte distribution width (RBC) [Ratio] 13.4 % Normal 11.6-14.6 [facility] Comment on above: Performed By: #### L 501.0900, L509.1000, L500.2500, L506.1001, L100.0100, L501.1400 #### [facility] [address] [place], [address] Hematocrit (Bld) [Volume fraction] 44.3 % Normal 40-54 [facility] Comment on above: Performed By: #### L 501.0900, L509.1000, L500.2500, L506.1001, L100.0100, L501.1400 #### [facility] [address] [place] [place], [address] Hemoglobin (Bld) [Mass/Vol] 14.4 g/dL Normal 13.0-16.5 [facility] Comment on above: Performed By: #### L 501.0900, L509.1000, L500.2500, L506.1001, L100.0100, L501.1400 #### [facility] [address] [place], [address] IG% 0.600 Normal 0.0-0.9 [facility] Comment on above: Result Comment: IG% - Immature Granulocytes (promyelocytes, myelocytes and metamyelocytes) > 1% indicates that a LEFT SHIFT is Present. Performed By: #### L 501.0900, L509.1000, L500.2500, L506.1001, L100.0100, L501.1400 #### [facility] [address] [place], [address] Lymphocytes/100 WBC (Bld) 26.6 % Normal 19-41 [facility] Comment on above: Performed By: #### L 501.0900, L509.1000, L500.2500, L506.1001, L100.0100, L501.1400 #### [facility] [address] [place], [address] MCH (RBC) [Entitic mass] 28.1 pg Normal 27.0-32.0 [facility] Comment on above: Performed By: #### L 501.0900, L509.1000, L500.2500, L506.1001, L100.0100, L501.1400 #### [facility] [address] [place], [address] MCHC (RBC) [Mass/Vol] 32.5 g/dL Normal 32-36 [facility] Comment on above: Performed By: #### L 501.0900, L509.1000, L500.2500, L506.1001, L100.0100, L501.1400 #### [facility] [address] [place], [address] MCV (RBC) [Entitic vol] 86.4 fL Normal 80-94 [facility] Comment on above: Performed By: #### L 501.0900, L509.1000, L500.2500, L506.1001, L100.0100, L501.1400 #### [facility] [address] [place], [address] Monocytes/100 WBC (Bld) 6.0 % Normal 0-10 [facility] Comment on above: Performed By: #### L 501.0900, L509.1000, L500.2500, L506.1001, L100.0100, L501.1400 #### [facility] [address] [place], [address] Neutrophils/100 WBC (Bld) 65.6 % Normal 47-70 [facility] Comment on above: Performed By: #### L 501.0900, L509.1000, L500.2500, L506.1001, L100.0100, L501.1400 #### [facility] [address] [place], [address] Nucleated RBC (Bld) [#/Vol] 0 10*3/uL Normal 0-5 [facility] Comment on above: Performed By: #### L 501.0900, L509.1000, L500.2500, L506.1001, L100.0100, L501.1400 #### [facility] [address] [place], [address] Platelet mean volume (Bld) [Entitic vol] 9.4 fL Normal 6.2-12.0 [facility] Comment on above: Performed By: #### L 501.0900, L509.1000, L500.2500, L506.1001, L100.0100, L501.1400 #### [facility] [address] [place], [address] Platelets (Bld) [#/Vol] 322 10*3/uL Normal 150-450 [facility] Comment on above: Performed By: #### L 501.0900, L509.1000, L500.2500, L506.1001, L100.0100, L501.1400 #### [facility] [address] [place], [address] RBC (Bld) [#/Vol] 5.13 10*6/uL Normal 4.6-6.2 [facility] Comment on above: Performed By: #### L 501.0900, L509.1000, L500.2500, L506.1001, L100.0100, L501.1400 #### [facility] [address] [place], [address] RDW SD 42.2 fl Normal 35.1-43.9 [facility] Comment on above: Performed By: #### L 501.0900, L509.1000, L500.2500, L506.1001, L100.0100, L501.1400 #### [facility] [address] [place], [address] WBC (Bld) [#/Vol] 12.7 10*3/uL High 4.4-11.0 [facility] Comment on above: Performed By: #### L 501.0900, L509.1000, L500.2500, L506.1001, L100.0100, L501.1400 #### [facility] [address] [place], [address] CRPon 06-20-2025 C-REACTIVE PROT 20.50 mg/L High 0.0-3.0 [facility] Comment on above: Order Comment: DR. Jumana MCCLOUD ORDERED CBCD,BMP,URINE PROTEIN CRE.DR. REESE ORDERED 25 TESTS. 2 OVERLAPPED CBCD,CMP.... Performed By: #### L 501.0900, L509.1000, L500.2500, L506.1001, L100.0100, L501.1400 #### [facility] [address] [place], [address] Comprehensive Metabolic Prof ilon 06-20-2025 Albumin [Mass/Vol] 4.0 g/dL Normal 3.5-5.0 [facility] Comment on above: Order Comment: DR. Jumana MCCLOUD ORDERED CBCD,BMP,URINE PROTEIN CRE.DR. REESE ORDERED 25 TESTS. 2 OVERLAPPED CBCD,CMP.... Performed By: #### L 501.0900, L509.1000, L500.2500, L506.1001, L100.0100, L501.1400 #### [facility] [address] [place], [address] Albumin/Globulin [Mass ratio] 1.4 {ratio} Normal 0.9-2.4 [facility] Comment on above: Order Comment: DR. uJmana MCCLOUD ORDERED CBCD,BMP,URINE PROTEIN CRE.DR. REESE ORDERED 25 TESTS. 2 OVERLAPPED CBCD,CMP.... Performed By: #### L 501.0900, L509.1000, L500.2500, L506.1001, L100.0100, L501.1400 #### [facility] [address] [place], [address] ALK PHOS 64 U/L Normal 40-129 [facility] Comment on above: Order Comment: DR. Jumana MCCLOUD ORDERED CBCD,BMP,URINE PROTEIN CRE.DR. REESE ORDERED 25 TESTS. 2 OVERLAPPED CBCD,CMP.... Performed By: #### L 501.0900, L509.1000, L500.2500, L506.1001, L100.0100, L501.1400 #### [facility] [address] [place], [address] ALT [Catalytic activity/Vol] 40 U/L Normal <=46 [facility] Comment on above: Order Comment: DR. Jumana MCCLOUD ORDERED CBCD,BMP,URINE PROTEIN CRE.DR. REESE ORDERED 25 TESTS. 2 OVERLAPPED CBCD,CMP.... Performed By: #### L 501.0900, L509.1000, L500.2500, L506.1001, L100.0100, L501.1400 #### [facility] [address] [place], [address] AST [Catalytic activity/Vol] 23 U/L Normal <=37 [facility] Comment on above: Order Comment: DR. Jumana MCCLOUD ORDERED CBCD,BMP,URINE PROTEIN CRE.DR. REESE ORDERED 25 TESTS. 2 OVERLAPPED CBCD,CMP.... Performed By: #### L 501.0900, L509.1000, L500.2500, L506.1001, L100.0100, L501.1400 #### [facility] [address] [place], [address] Bilirubin [Mass/Vol] 0.27 mg/dL Normal 0.00-1.30 [facility] Comment on above: Order Comment: DR. Jumana MCCLOUD ORDERED CBCD,BMP,URINE PROTEIN CRE.DR. REESE ORDERED 25 TESTS. 2 OVERLAPPED CBCD,CMP.... Performed By: #### L 501.0900, L509.1000, L500.2500, L506.1001, L100.0100, L501.1400 #### [facility] [address] [place], [address] BUN/CRE 20.1 RATIO High 10-20 [facility] Comment on above: Order Comment: DR. Jumana MCCLOUD ORDERED CBCD,BMP,URINE PROTEIN CRE.DR. REESE ORDERED 25 TESTS. 2 OVERLAPPED CBCD,CMP.... Performed By: #### L 501.0900, L509.1000, L500.2500, L506.1001, L100.0100, L501.1400 #### [facility] [address] [place], [address] Calcium [Mass/Vol] 9.9 mg/dL Normal 7.6-11.0 [facility] Comment on above: Order Comment: DR. Jumana MCCLOUD ORDERED CBCD,BMP,URINE PROTEIN CRE.DR. REESE ORDERED 25 TESTS. 2 OVERLAPPED CBCD,CMP.... Performed By: #### L 501.0900, L509.1000, L500.2500, L506.1001, L100.0100, L501.1400 #### [facility] [address] [place], [address] Chloride [Moles/Vol] 103 mmol/L Normal 98-108 [facility] Comment on above: Order Comment: DR. Jumana MCCLOUD ORDERED CBCD,BMP,URINE PROTEIN CRE.DR. REESE ORDERED 25 TESTS. 2 OVERLAPPED CBCD,CMP.... Performed By: #### L 501.0900, L509.1000, L500.2500, L506.1001, L100.0100, L501.1400 #### [facility] [address] [place], [address] CO2 [Moles/Vol] 19.6 mmol/L Low 21.0-32.0 [facility] Comment on above: Order Comment: DR. Jumana MCCLOUD ORDERED CBCD,BMP,URINE PROTEIN CRE.DR. REESE ORDERED 25 TESTS. 2 OVERLAPPED CBCD,CMP.... Performed By: #### L 501.0900, L509.1000, L500.2500, L506.1001, L100.0100, L501.1400 #### [facility] [address] [place], [address] Creatinine [Mass/Vol] 1.02 mg/dL Normal 0.70-1.20 [facility] Comment on above: Order Comment: DR. Jumana MCCLOUD ORDERED CBCD,BMP,URINE PROTEIN CRE.DR. REESE ORDERED 25 TESTS. 2 OVERLAPPED CBCD,CMP.... Performed By: #### L 501.0900, L509.1000, L500.2500, L506.1001, L100.0100, L501.1400 #### [facility] [address] [place], [address] GAP 15 Normal 5-15 [facility] Comment on above: Order Comment: DR. Jumana MCCLOUD ORDERED CBCD,BMP,URINE PROTEIN CRE.DR. REESE ORDERED 25 TESTS. 2 OVERLAPPED CBCD,CMP.... Performed By: #### L 501.0900, L509.1000, L500.2500, L506.1001, L100.0100, L501.1400 #### [facility] [address] [place], [address] GFR/1.73 sq M.predicted among non-blacks MDRD (S/P/Bld) [Vol rate/Area] 96 mL/min/{1.73_m2} Normal >60 [facility] Comment on above: Order Comment: DR. Jumana MCCLOUD ORDERED CBCD,BMP,URINE PROTEIN CRE.DR. REESE ORDERED 25 TESTS. 2 OVERLAPPED CBCD,CMP.... Result Comment: mL/m in/1.73m2 CKD-EPI Creatinine Equation (2020) Performed By: #### L 501.0900, L509.1000, L500.2500, L506.1001, L100.0100, L501.1400 #### [facility] [address] [place], [address] Globulin (S) [Mass/Vol] 2.8 g/dL Normal 2.2-4.2 [facility] Comment on above: Order Comment: DR. Jumana MCCLOUD ORDERED CBCD,BMP,URINE PROTEIN CRE.DR. REESE ORDERED 25 TESTS. 2 OVERLAPPED CBCD,CMP.... Performed By: #### L 501.0900, L509.1000, L500.2500, L506.1001, L100.0100, L501.1400 #### [facility] [address] [place], [address] Glucose [Mass/Vol] 104 mg/dL High 70-99 [facility] Comment on above: Order Comment: DR. Jumana MCCLOUD ORDERED CBCD,BMP,URINE PROTEIN CRE.DR. REESE ORDERED 25 TESTS. 2 OVERLAPPED CBCD,CMP.... Performed By: #### L 501.0900, L509.1000, L500.2500, L506.1001, L100.0100, L501.1400 #### [facility] [address] [place], [address] Potassium [Moles/Vol] 3.6 mmol/L Normal 3.3-5.1 [facility] Comment on above: Order Comment: DR. Jumana MCCLOUD ORDERED CBCD,BMP,URINE PROTEIN CRE.DR. REESE ORDERED 25 TESTS. 2 OVERLAPPED CBCD,CMP.... Performed By: #### L 501.0900, L509.1000, L500.2500, L506.1001, L100.0100, L501.1400 #### [facility] [address] [place], [address] Sodium [Moles/Vol] 137 mmol/L Normal 133-145 [facility] Comment on above: Order Comment: DR. Jumana MCCLOUD ORDERED CBCD,BMP,URINE PROTEIN CRE.DR. REESE ORDERED 25 TESTS. 2 OVERLAPPED CBCD,CMP.... Performed By: #### L 501.0900, L509.1000, L500.2500, L506.1001, L100.0100, L501.1400 #### [facility] [address] [place], [address] T PROT 6.9 g/dL Normal 5.9-8.4 [facility] Comment on above: Order Comment: DR. Jumana MCCLOUD ORDERED CBCD,BMP,URINE PROTEIN CRE.DR. REESE ORDERED 25 TESTS. 2 OVERLAPPED CBCD,CMP.... Performed By: #### L 501.0900, L509.1000, L500.2500, L506.1001, L100.0100, L501.1400 #### [facility] [address] [place], [address] Urea nitrogen [Mass/Vol] 21 mg/dL High 4-19 [facility] Comment on above: Order Comment: DR. Jumana MCCLOUD ORDERED CBCD,BMP,URINE PROTEIN CRE.DR. REESE ORDERED 25 TESTS. 2 OVERLAPPED CBCD,CMP.... Performed By: #### L 501.0900, L509.1000, L500.2500, L506.1001, L100.0100, L501.1400 #### [facility] [address] [place], [address] Erythrocyte Sed Rateon 06-20 SED RATE 30 mm/hr High 0-20 [facility] Comment on above: Performed By: #### L 501.0900, L509.1000, L500.2500, L506.1001, L100.0100, L501.1400 #### [facility] [address] [place], [address] Ferritinon 06-20-2025 Ferritin [Mass/Vol] 82 ng/mL Normal 37-417 [facility] Comment on above: Order Comment: DR. Jumana MCCLOUD ORDERED CBCD,BMP,URINE PROTEIN CRE.DR. REESE ORDERED 25 TESTS. 2 OVERLAPPED CBCD,CMP.... Performed By: #### L 501.0900, L509.1000, L500.2500, L506.1001, L100.0100, L501.1400 #### [facility] [address] [place], [place], [phone] ([phone]) HIVon 06-20-2025 HIV Non-Reactive Normal Nonreactive [facility] Comment on above: Order Comment: DR. Jumana MCCLOUD ORDERED CBCD,BMP,URINE PROTEIN CRE.DR. REESE ORDERED 25 TESTS. 2 OVERLAPPED CBCD,CMP.... Result Comment: Non- Reactive Reactive Repeatedly reactive samples must be confirmed according to CDC recommended confirmatory algorithms. The subresults for either HIVAG or AHIV can be used as an aid in the selection of the confirmation algorithm for reactive samples. Send out specimens with Reactive results to [facility] for confirmation. Order the HIV antibody detection and differentiation: [id number] Performed By: #### L 501.0900, L509.1000, L500.2500, L506.1001, L100.0100, L501.1400 #### [facility] [address] [place], [address] Hemoglobin A1con 06-20-2025 HbA1c (Bld) [Mass fraction] 5.8 % High <=5.6 [facility] Comment on above: Result Comment: Norm al < 5.7 % Prediabetic 5.7 - 6.4 % Diabetic >or= 6.5 % Please note range changes. Performed By: #### L 501.0900, L509.1000, L500.2500, L506.1001, L100.0100, L501.1400 #### [facility] [address] [place], [place], [phone] ([phone]) Hepatitis B Surface Antibody on 06-20-2025 HEP B Surf Ab REAC Normal [facility] Comment on above: Result Comment: <8.5 mIU/mL: Non-Reactive 8.5<= x <11.5 mIU/mL: Indeterminate >=11.5 mIU/mL: Reactive Non Reactive: Inconsistent with immunity less than <10 mIU/mL Reactive: Consistent with immunity greater than or equal to 10 mIU/mL Performed By: #### L 501.0900, L509.1000, L500.2500, L506.1001, L100.0100, L501.1400 #### [facility] [address] [place], [place], [id number] Iron+Iron Binding Capacityon 06-20-2025 Iron [Mass/Vol] 45 ug/dL Low 65-175 [facility] Comment on above: Order Comment: DR. Jumana MCCLOUD ORDERED CBCD,BMP,URINE PROTEIN CRE.DR. REESE ORDERED 25 TESTS. 2 OVERLAPPED CBCD,CMP.... Performed By: #### L 501.0900, L509.1000, L500.2500, L506.1001, L100.0100, L501.1400 #### [facility] [address] [place], [place], [phone] ([phone]) IRON SATURATION 15.0 Normal 9-55 [facility] Comment on above: Order Comment: DR. Jumana MCCLOUD ORDERED CBCD,BMP,URINE PROTEIN CRE.DR. REESE ORDERED 25 TESTS. 2 OVERLAPPED CBCD,CMP.... Performed By: #### L 501.0900, L509.1000, L500.2500, L506.1001, L100.0100, L501.1400 #### [facility] [address] [place], [address] TIBC 294 ug/dL Normal 250-450 [facility] Comment on above: Order Comment: DR. Jumana MCCLOUD ORDERED CBCD,BMP,URINE PROTEIN CRE.DR. REESE ORDERED 25 TESTS. 2 OVERLAPPED CBCD,CMP.... Performed By: #### L 501.0900, L509.1000, L500.2500, L506.1001, L100.0100, L501.1400 #### [facility] [address] [place], [address] UIBC 249 ug/dL Normal 228-428 [facility] Comment on above: Order Comment: DR. Jumana MCCLOUD ORDERED CBCD,BMP,URINE PROTEIN CRE.DR. REESE ORDERED 25 TESTS. 2 OVERLAPPED CBCD,CMP.... Performed By: #### L 501.0900, L509.1000, L500.2500, L506.1001, L100.0100, L501.1400 #### [facility] [address] [place], [address] LDHon 06-20-2025 LDH 282 U/L High 87-241 [facility] Comment on above: Order Comment: DR. Jumana MCCLOUD ORDERED CBCD,BMP,URINE PROTEIN CRE.DR. REESE ORDERED 25 TESTS. 2 OVERLAPPED CBCD,CMP....1 Performed By: #### L 501.0900, L509.1000, L500.2500, L506.1001, L100.0100, L501.1400 #### [facility] [address] [place], [address] Lipid Profileon 06-20-2025 CHOL:HDL 3.76 Normal [facility] Comment on above: Order Comment: DR. Jumana MCCLOUD ORDERED CBCD,BMP,URINE PROTEIN CRE.DR. REESE ORDERED 25 TESTS. 2 OVERLAPPED CBCD,CMP.... Performed By: #### L 501.0900, L509.1000, L500.2500, L506.1001, L100.0100, L501.1400 #### [facility] [address] [place], [address] Cholesterol [Mass/Vol] 225 mg/dL High <=200 [facility] Comment on above: Order Comment: DR. Jumana MCCLOUD ORDERED CBCD,BMP,URINE PROTEIN CRE.DR. REESE ORDERED 25 TESTS. 2 OVERLAPPED CBCD,CMP.... Result Comment: Chol esterol level, Desirable <200 mg/dL Borderline high cholesterol 200-239 mg/dL High cholesterol >=240 mg/dL Recommendations of the NCEP Adult Treatment Panel for the following risk-cutoff thresholds for the [place] population. Performed By: #### L 501.0900, L509.1000, L500.2500, L506.1001, L100.0100, L501.1400 #### [facility] [address] [place], [address] Cholesterol in HDL [Mass/Vol] 60 mg/dL Normal [facility] Comment on above: Order Comment: DR. Jumana MCCLOUD ORDERED CBCD,BMP,URINE PROTEIN CRE.DR. REESE ORDERED 25 TESTS. 2 OVERLAPPED CBCD,CMP.... Result Comment: Emily onal Cholesterol Education Program (NCEP) guidelines: <40 mg/dL: Low HDL-cholesterol (major risk factor for CHD) >= 60 mg/dL: High HDL-cholesterol (negative risk factor for CHD) HDL-cholesterol is affected by a number of factors, e.g. smoking, exercise, hormones, sex and age. Performed By: #### L 501.0900, L509.1000, L500.2500, L506.1001, L100.0100, L501.1400 #### [facility] [address] [place], [address] Cholesterol in LDL [Mass/Vol] 128 mg/dL Normal [facility] Comment on above: Order Comment: DR. Jumana MCCLOUD ORDERED CBCD,BMP,URINE PROTEIN CRE.DR. REESE ORDERED 25 TESTS. 2 OVERLAPPED CBCD,CMP.... Result Comment: Bord hxhmqb=759-450 mg/dL Higher Bgod=257 mg/dL or greater Friedwald Equation for LDL-C Performed By: #### L 501.0900, L509.1000, L500.2500, L506.1001, L100.0100, L501.1400 #### [facility] [address] [place], [address] Cholesterol in VLDL [Mass/Vol] 38 mg/dL Normal 5-40 [facility] Comment on above: Order Comment: DR. Jumana MCCLOUD ORDERED CBCD,BMP,URINE PROTEIN CRE.DR. REESE ORDERED 25 TESTS. 2 OVERLAPPED CBCD,CMP.... Performed By: #### L 501.0900, L509.1000, L500.2500, L506.1001, L100.0100, L501.1400 #### [facility] [address] [place], [address] Triglyceride [Mass/Vol] 188 mg/dL Normal [facility] Comment on above: Order Comment: DR. Jumana MCCLOUD ORDERED CBCD,BMP,URINE PROTEIN CRE.DR. REESE ORDERED 25 TESTS. 2 OVERLAPPED CBCD,CMP.... Result Comment: The drugs N-Acetylcysteine and Metamizole may falsely depress this assay. Normal range: <150 mg/dL Borderline High: 150-199 mg/dL High: 200-499 mg/dL Very High: >500 mg/dL Performed By: #### L 501.0900, L509.1000, L500.2500, L506.1001, L100.0100, L501.1400 #### [facility] [address] [place], [address] Protein+Creatinine Ratio,Uri neon 06-20-2025 PROT:CRE RATIO 187 mg/g CRE Normal 0-200 [facility] Comment on above: Performed By: #### L 501.0900, L509.1000, L500.2500, L506.1001, L100.0100, L501.1400 #### [facility] [address] [place], [address] Protein (U) [Mass/Vol] 24.9 mg/dL High 0.0-12.0 [facility] Comment on above: Performed By: #### L 501.0900, L509.1000, L500.2500, L506.1001, L100.0100, L501.1400 #### [facility] [address] [place], [address] UR CREAT 133.00 mg/dL Normal 39.00-259.00 [facility] Comment on above: Performed By: #### L 501.0900, L509.1000, L500.2500, L506.1001, L100.0100, L501.1400 #### [facility] [address] [place], [address] Prothrombin Time w/INRon INR Coag (PPP) [Relative time] 1.0 {INR} Normal [facility] Comment on above: Performed By: #### L 501.0900, L509.1000, L500.2500, L506.1001, L100.0100, L501.1400 #### [facility] [address] [place], [address] PT Coag (PPP) [Time] 12.8 s Normal 11.7-14.9 [facility] Comment on above: Performed By: #### L 501.0900, L509.1000, L500.2500, L506.1001, L100.0100, L501.1400 #### [facility] [address] [place], [address] Thyroid Stim Hormone (TSH)on 06-20-2025 TSH 1.380 uIU/mL Normal 0.300-4.200 [facility] Comment on above: Order Comment: DR. Jumana MCCLOUD ORDERED CBCD,BMP,URINE PROTEIN CRE.DR. REESE ORDERED 25 TESTS. 2 OVERLAPPED CBCD,CMP.... Performed By: #### L 501.0900, L509.1000, L500.2500, L506.1001, L100.0100, L501.1400 #### [facility] [address] [place], [address] Urinalysis, Completeon 06-20 RBC 5-10 SEEN Normal 0-5 [facility] Comment on above: Order Comment: CLEAN CATCH Performed By: #### L 501.0900, L509.1000, L500.2500, L506.1001, L100.0100, L501.1400 #### [facility] [address] [place], [address] WBC 0-5 SEEN Normal 0-5 [facility] Comment on above: Order Comment: CLEAN CATCH Performed By: #### L 501.0900, L509.1000, L500.2500, L506.1001, L100.0100, L501.1400 #### [facility] [address] [place], [address] BACTERIA 0 SEEN Normal None Seen [facility] Comment on above: Order Comment: CLEAN CATCH Performed By: #### L 501.0900, L509.1000, L500.2500, L506.1001, L100.0100, L501.1400 #### [facility] [address] [place], [address] EPI,SQUAMOUS 0 SEEN Normal 0-5 [facility] Comment on above: Order Comment: CLEAN CATCH Performed By: #### L 501.0900, L509.1000, L500.2500, L506.1001, L100.0100, L501.1400 #### [facility] [address] [place], [address] Mucus Ql (Urine sed) 0 SEEN Normal [facility] Comment on above: Order Comment: CLEAN CATCH Performed By: #### L 501.0900, L509.1000, L500.2500, L506.1001, L100.0100, L501.1400 #### [facility] [address] [place], [address] Vitamin D,25 Hydroxyon 06-20 Vitamin D 25-OH 58.7 ng/mL Normal 30-100 [facility] Comment on above: Order Comment: DR. Jumana MCCLOUD ORDERED CBCD,BMP,URINE PROTEIN CRE.DR. REESE ORDERED 25 TESTS. 2 OVERLAPPED CBCD,CMP.... Result Comment: Amelie min D Status Deficiency: <20 ng/mL (50nmol/L) Insufficiency: 20-30 ng/mL (50-75 nmol/L) Sufficiency: 30-100 ng/mL (75-250 nmol/L) Toxicity: >100 ng/mL (>250 nmol/L) Performed By: #### L 501.0900, L509.1000, L500.2500, L506.1001, L100.0100, L501.1400 #### [facility] [address] [place], [address] Gastroenterology Visit Repor ton 05-24-2025 Gastroenterology Visit Report [facility] [address] [place] [address] OFFICE VISIT Date of Service: 05/24/25 MR#: [id number] Acct: [id number] Name: KRYSTEN CROOK Rep #: [id number] : 1985 Provider: Dr. Jabari dietrich MD Age/Sex: 40/M [place] [facility] [place]: Signed Intake Vital Signs 05/24/25 08:57 Height 5 ft 8 in Weight: 308 lb 6 oz BMI 46.8 BP 115/81 H Blood Pressure Location Lt brachial Position Sitting Respiration 16 Pulse 74 Pulse Source Monitor Pulse Oximetry (%) 94 Oxygen Delivery Method room air Intake Visit Reasons: Possible Liver Cirrhosis Chief Complaint: Referral potential Liver Fibrosis Pet Groomer Required: No Is patient in pain?: No [...] nephropathy with crescents. 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 Since then patient has been on multiple doses of prednisone, antibiotics including clindamycin, doxycycline and saw outpatient clerk also. His lesions have healed since August. He was also tested negative for autoimmune antibodies including cryoglobulin, anti-C1q IgG, Avise vasculitis panel, antihistone IgG, ALTON, anti-DNA, antiphospholipid antibodies, RF and anti-CCP antibodies. [facility] lupus index was -2.2. In February 2025 [...] inattentiveness End (more content not included)... Normal [facility] Absolute lymphocyte countOrd ered By: Edith Gore on 04-24-2025 Lymphocytes Auto (Unsp spec) [#/Vol] 2.68 10*3/uL 0.83-4.51 [facility] Absolute neutrophil countOrd ered By: Edith Gore on 04-24-2025 Neutrophils (Bld) [#/Vol] 8.6 10*3/uL High 2.0-7.7 [facility] Anion gap in Serum or Plasma Ordered By: Edith Gore on 04-24-2025 Anion gap [Moles/Vol] 12 mmol/L 5-15 [facility] Automated lymphocyte count a s percentage of total leukocytesOrdered By: Edith Gore on 04-24-2025 Lymphocytes/100 WBC Auto (Unsp spec) 21.6 % 19-41 [facility] BUN/creatinine ratioOrdered By: Edith Gore on 04-24-2025 Urea nitrogen/Creatinine [Mass ratio] 21.6 mg/mg High 10-20 [facility] Basophil percentageOrdered B y: Edith Gore on 04-24-2025 Basophils/100 WBC (Bld) 0.3 % 0-1 [facility] Bilirubin Test strip Ql (U)O rdered By: Edith Gore on 04-24-2025 Bilirubin Ql (U) Negative Negative [facility] Bilirubin, totalOrdered By: Edith Gore on 04-24-2025 Bilirubin [Mass/Vol] 0.30 mg/dL 0.00-1.30 [facility] CBC W/Diff, Automatedon Absolute Lymph 2.68 X10 3/uL Normal 0.83-4.51 [facility] Comment on above: Performed By: #### L 501.0900, L509.1000, L500.2500, L506.1001, L100.0100, L501.1400 #### [facility] [address] [place], [address] Absolute Neut 8.6 X10 3/uL High 2.0-7.7 [facility] Comment on above: Performed By: #### L 501.0900, L509.1000, L500.2500, L506.1001, L100.0100, L501.1400 #### [facility] [address] [place], [address] Basophils/100 WBC (Bld) 0.3 % Normal 0-1 [facility] Comment on above: Performed By: #### L 501.0900, L509.1000, L500.2500, L506.1001, L100.0100, L501.1400 #### [facility] [address] [place], [address] Eosinophils/100 WBC (Bld) 1.0 % Normal 0-5 [facility] Comment on above: Performed By: #### L 501.0900, L509.1000, L500.2500, L506.1001, L100.0100, L501.1400 #### [facility] [address] [place], [address] Erythrocyte distribution width (RBC) [Ratio] 14.3 % Normal 11.6-14.6 [facility] Comment on above: Performed By: #### L 501.0900, L509.1000, L500.2500, L506.1001, L100.0100, L501.1400 #### [facility] [address] [place], [address] Hematocrit (Bld) [Volume fraction] 45.7 % Normal 40-54 [facility] Comment on above: Performed By: #### L 501.0900, L509.1000, L500.2500, L506.1001, L100.0100, L501.1400 #### [facility] [address] [place], [address] Hemoglobin (Bld) [Mass/Vol] 14.5 g/dL Normal 13.0-16.5 [facility] Comment on above: Performed By: #### L 501.0900, L509.1000, L500.2500, L506.1001, L100.0100, L501.1400 #### [facility] [address] [facility] [place], [address] IG% 0.700 Normal 0.0-0.9 [facility] Comment on above: Result Comment: IG% - Immature Granulocytes (promyelocytes, myelocytes and metamyelocytes) > 1% indicates that a LEFT SHIFT is Present. Performed By: #### L 501.0900, L509.1000, L500.2500, L506.1001, L100.0100, L501.1400 #### [facility] [address] [place], [address] Lymphocytes/100 WBC (Bld) 21.6 % Normal 19-41 [facility] Comment on above: Performed By: #### L 501.0900, L509.1000, L500.2500, L506.1001, L100.0100, L501.1400 #### [facility] [address] [place], [address] MCH (RBC) [Entitic mass] 28.3 pg Normal 27.0-32.0 [facility] Comment on above: Performed By: #### L 501.0900, L509.1000, L500.2500, L506.1001, L100.0100, L501.1400 #### [facility] [address] [place], [address] MCHC (RBC) [Mass/Vol] 31.7 g/dL Low 32-36 [facility] Comment on above: Performed By: #### L 501.0900, L509.1000, L500.2500, L506.1001, L100.0100, L501.1400 #### [facility] [address] [place], [address] MCV (RBC) [Entitic vol] 89.1 fL Normal 80-94 [facility] Comment on above: Performed By: #### L 501.0900, L509.1000, L500.2500, L506.1001, L100.0100, L501.1400 #### [facility] [address] [place], [address] Monocytes/100 WBC (Bld) 7.0 % Normal 0-10 [facility] Comment on above: Performed By: #### L 501.0900, L509.1000, L500.2500, L506.1001, L100.0100, L501.1400 #### [facility] [address] [place], [address] Neutrophils/100 WBC (Bld) 69.4 % Normal 47-70 [facility] Comment on above: Performed By: #### L 501.0900, L509.1000, L500.2500, L506.1001, L100.0100, L501.1400 #### [facility] [address] [place], [address] Nucleated RBC (Bld) [#/Vol] 0 10*3/uL Normal 0-5 [facility] Comment on above: Performed By: #### L 501.0900, L509.1000, L500.2500, L506.1001, L100.0100, L501.1400 #### [facility] [address] [place], [address] Platelet mean volume (Bld) [Entitic vol] 9.2 fL Normal 6.2-12.0 [facility] Comment on above: Performed By: #### L 501.0900, L509.1000, L500.2500, L506.1001, L100.0100, L501.1400 #### [facility] [address] [place], [address] Platelets (Bld) [#/Vol] 346 10*3/uL Normal 150-450 [facility] Comment on above: Performed By: #### L 501.0900, L509.1000, L500.2500, L506.1001, L100.0100, L501.1400 #### [facility] [address] [place], [address] RBC (Bld) [#/Vol] 5.13 10*6/uL Normal 4.6-6.2 [facility] Comment on above: Performed By: #### L 501.0900, L509.1000, L500.2500, L506.1001, L100.0100, L501.1400 #### [facility] [address] [place], [address] RDW SD 46.4 fl High 35.1-43.9 [facility] Comment on above: Performed By: #### L 501.0900, L509.1000, L500.2500, L506.1001, L100.0100, L501.1400 #### [facility] [address] [place], [address] WBC (Bld) [#/Vol] 12.4 10*3/uL High 4.4-11.0 [facility] Comment on above: Performed By: #### L 501.0900, L509.1000, L500.2500, L506.1001, L100.0100, L501.1400 #### [facility] [address] [place], [address] CRPon 04-24-2025 C-REACTIVE PROT 54.40 mg/L High 0.0-3.0 [facility] Comment on above: Performed By: #### L 501.0900, L509.1000, L500.2500, L506.1001, L100.0100, L501.1400 #### [facility] [address] [place], [address] Carbon dioxide, total [Moles /volume] in Central venous bloodOrdered By: Edith Gore on 04-24-2025 CO2 [Moles/Vol] 24.4 mmol/L 21.0-32.0 [facility] Chloride assayOrdered By: Manuel Gore on 04-24-2025 Chloride [Moles/Vol] 103 mmol/L 98-108 [facility] Comprehensive Metabolic Prof ilon 04-24-2025 Albumin [Mass/Vol] 3.7 g/dL Normal 3.5-5.0 [facility] Comment on above: Performed By: #### L 501.0900, L509.1000, L500.2500, L506.1001, L100.0100, L501.1400 #### [facility] [address] [place], [address] Albumin/Globulin [Mass ratio] 1.2 {ratio} Normal 0.9-2.4 [facility] Comment on above: Performed By: #### L 501.0900, L509.1000, L500.2500, L506.1001, L100.0100, L501.1400 #### [facility] [address] [place], [address] ALK PHOS 65 U/L Normal 40-129 [facility] Comment on above: Performed By: #### L 501.0900, L509.1000, L500.2500, L506.1001, L100.0100, L501.1400 #### [facility] [address] [place], [address] ALT [Catalytic activity/Vol] 52 U/L High <=46 [facility] Comment on above: Performed By: #### L 501.0900, L509.1000, L500.2500, L506.1001, L100.0100, L501.1400 #### [facility] [address] [place], [address] AST [Catalytic activity/Vol] 26 U/L Normal <=37 [facility] Comment on above: Performed By: #### L 501.0900, L509.1000, L500.2500, L506.1001, L100.0100, L501.1400 #### [facility] [address] [place], [address] Bilirubin [Mass/Vol] 0.30 mg/dL Normal 0.00-1.30 [facility] Comment on above: Performed By: #### L 501.0900, L509.1000, L500.2500, L506.1001, L100.0100, L501.1400 #### [facility] [address] [place], [address] BUN/CRE 21.6 RATIO High 10-20 [facility] Comment on above: Performed By: #### L 501.0900, L509.1000, L500.2500, L506.1001, L100.0100, L501.1400 #### [facility] [address] [place], [address] Calcium [Mass/Vol] 9.2 mg/dL Normal 7.6-11.0 [facility] Comment on above: Performed By: #### L 501.0900, L509.1000, L500.2500, L506.1001, L100.0100, L501.1400 #### [facility] [address] [place], [address] Chloride [Moles/Vol] 103 mmol/L Normal 98-108 [facility] Comment on above: Performed By: #### L 501.0900, L509.1000, L500.2500, L506.1001, L100.0100, L501.1400 #### [facility] [address] [place], [address] CO2 [Moles/Vol] 24.4 mmol/L Normal 21.0-32.0 [facility] Comment on above: Performed By: #### L 501.0900, L509.1000, L500.2500, L506.1001, L100.0100, L501.1400 #### [facility] [address] [place], [address] Creatinine [Mass/Vol] 0.98 mg/dL Normal 0.70-1.20 [facility] Comment on above: Performed By: #### L 501.0900, L509.1000, L500.2500, L506.1001, L100.0100, L501.1400 #### [facility] [address] [place], [address] GAP 12 Normal 5-15 [facility] Comment on above: Performed By: #### L 501.0900, L509.1000, L500.2500, L506.1001, L100.0100, L501.1400 #### [facility] [address] [place], [address] GFR/1.73 sq M.predicted among non-blacks MDRD (S/P/Bld) [Vol rate/Area] 102 mL/min/{1.73_m2} Normal >60 [facility] Comment on above: Result Comment: mL/m in/1.73m2 CKD-EPI Creatinine Equation (2020) Performed By: #### L 501.0900, L509.1000, L500.2500, L506.1001, L100.0100, L501.1400 #### [facility] [address] [place], [address] Globulin (S) [Mass/Vol] 3.2 g/dL Normal 2.2-4.2 [facility] Comment on above: Performed By: #### L 501.0900, L509.1000, L500.2500, L506.1001, L100.0100, L501.1400 #### [facility] [address] [place], [address] Glucose [Mass/Vol] 92 mg/dL Normal 70-99 [facility] Comment on above: Performed By: #### L 501.0900, L509.1000, L500.2500, L506.1001, L100.0100, L501.1400 #### [facility] [address] [place], [address] Potassium [Moles/Vol] 4.1 mmol/L Normal 3.3-5.1 [facility] Comment on above: Performed By: #### L 501.0900, L509.1000, L500.2500, L506.1001, L100.0100, L501.1400 #### [facility] [address] [place], [address] Sodium [Moles/Vol] 139 mmol/L Normal 133-145 [facility] Comment on above: Performed By: #### L 501.0900, L509.1000, L500.2500, L506.1001, L100.0100, L501.1400 #### [facility] [address] [place], [address] T PROT 6.9 g/dL Normal 5.9-8.4 [facility] Comment on above: Performed By: #### L 501.0900, L509.1000, L500.2500, L506.1001, L100.0100, L501.1400 #### [facility] [address] [place], [address] Urea nitrogen [Mass/Vol] 21 mg/dL High 4-19 [facility] Comment on above: Performed By: #### L 501.0900, L509.1000, L500.2500, L506.1001, L100.0100, L501.1400 #### [facility] [address] [place], [address] Eosinophil percentageOrdered By: Edith Gore on 04-24-2025 Eosinophils/100 WBC (Bld) 1.0 % 0-5 [facility] Erythrocyte Sed Rateon 04-24 SED RATE 50 mm/hr High 0-20 [facility] Comment on above: Performed By: #### L 501.0900, L509.1000, L500.2500, L506.1001, L100.0100, L501.1400 #### [facility] [address] [place], [address] Erythrocyte distribution wid th ratioOrdered By: Edith Gore on 04-24-2025 Erythrocyte distribution width (RBC) [Ratio] 14.3 % 11.6-14.6 [facility] Erythrocyte distribution wid th standard deviationOrdered By: Edith Gore on 04-24-2025 Erythrocyte distribution width (RBC) [Ratio] 46.4 fl High 35.1-43.9 [facility] Erythrocyte sedimentation ra teOrdered By: Edith Gore on 04-24-2025 ESR (Bld) [Velocity] 50 mm/h High 0-20 [facility] Glomerular filtration rate ( GFR) estimation/1.73 sq m using serum, plasma, or whole bOrdered By: Edith Gore on 04-24-2025 GFR/1.73 sq M.predicted among non-blacks MDRD (S/P/Bld) [Vol rate/Area] 102 mL/min/{1.73_m2} >60 [facility] Comment on above: mL/min/1.73m2 CKD-EP I Creatinine Equation (2020) Hematocrit Auto (Bld) [Volum e fraction]Ordered By: Edith Gore on 04-24-2025 Hematocrit (Bld) [Volume fraction] 45.7 % 40-54 [facility] Hemoglobin measurementOrdere d By: Edith Gore on 04-24-2025 Hemoglobin (Bld) [Mass/Vol] 14.5 g/dL 13.0-16.5 [facility] Immature granulocytes/100 WB C Auto (Bld)Ordered By: Edith Gore on 04-24-2025 Immature granulocytes/100 WBC (Bld) 0.700 % 0.0-0.9 [facility] Comment on above: IG% - Immature Granu locytes (promyelocytes, myelocytes and metamyelocytes) > 1% indicates that a LEFT SHIFT is Present. Ketones Test strip Ql (U)Ord ered By: Edith Gore on 04-24-2025 Ketones Ql (U) Negative Negative [facility] - Chemistry and C hemistry - challengeOrdered By: Edith Gore on 04-24-2025 AST [Catalytic activity/Vol] 26 U/L <38 [facility] MCV (mean corpuscular volume ) determinationOrdered By: Edith Gore on 04-24-2025 MCV (RBC) [Entitic vol] 89.1 fL 80-94 [facility] Mean corpuscular hemoglobin (MCH) determinationOrdered By: Edith Gore on 04-24-2025 MCH (RBC) [Entitic mass] 28.3 pg 27.0-32.0 [facility] Mean corpuscular hemoglobin concentration (MCHC) determinationOrdered By: Edith Gore on 04-24-2025 MCHC (RBC) [Mass/Vol] 31.7 g/dL Low 32-36 [facility] Mean platelet volume determi nationOrdered By: Edith Gore on 04-24-2025 Platelet mean volume (Bld) [Entitic vol] 9.2 fL 6.2-12.0 [facility] Monocyte percentageOrdered B y: Edith Gore on 04-24-2025 Monocytes/100 WBC (Bld) 7.0 % 0-10 [facility] Neutrophil percentageOrdered By: Edith Gore on 04-24-2025 Neutrophils/100 WBC (Bld) 69.4 % 47-70 [facility] Nitrite Test strip Ql (U)Ord ered By: Edith Gore on 04-24-2025 Nitrite Ql (U) Negative Negative [facility] Nucleated red blood cell per centageOrdered By: Edith Gore on 04-24-2025 Nucleated RBC/100 WBC (Bld) [Ratio] 0 % 0-5 [facility] Platelet countOrdered By: Manuel Gore on 04-24-2025 Platelets (Bld) [#/Vol] 346 10*3/uL 150-450 [facility] Potassium measurement (mass/ volume)Ordered By: Edith Gore on 04-24-2025 Potassium (Unsp spec) [Mass/Vol] 4.1 mmol/L 3.3-5.1 [facility] Protein Test strip Ql (U)Ord ered By: Edith Gore on 04-24-2025 Protein Ql (U) 30 mg/dl High Negative [facility] Protein+Creatinine Ratio,Uri neon 04-24-2025 PROT:CRE RATIO 210 mg/g CRE High 0-200 [facility] Comment on above: Performed By: #### L 501.0900, L509.1000, L500.2500, L506.1001, L100.0100, L501.1400 #### [facility] [address] [place], [address] Protein (U) [Mass/Vol] 39.1 mg/dL High 0.0-12.0 [facility] Comment on above: Performed By: #### L 501.0900, L509.1000, L500.2500, L506.1001, L100.0100, L501.1400 #### [facility] [address] [place], [address] RBC Auto (Bld) [#/Vol]Ordere d By: Edith Gore on 04-24-2025 RBC (Bld) [#/Vol] 5.13 10*6/uL 4.6-6.2 [facility] Random urine creatinine cristian urement (mass/volume)Ordered By: Edith Gore on 04-24-2025 Creatinine Unsp time (U) [Mass/Vol] 186.00 mg/dL 39.00-259.00 [facility] Serum creatinine measurement (mass/volume)Ordered By: Edith Gore on 04-24-2025 Creatinine [Mass/Vol] 0.98 mg/dL 0.70-1.20 [facility] Serum globulin measurementOr dered By: Edith Gore on 04-24-2025 Globulin (S) [Mass/Vol] 3.2 g/dL 2.2-4.2 [facility] Serum glucose measurement (m ass/volume)Ordered By: Edith Gore on 04-24-2025 Glucose [Mass/Vol] 92 mg/dL 70-99 [facility] Serum or plasma C reactive p rotein measurement (mass/volume)Ordered By: Edith Gore on 04-24-2025 CRP [Mass/Vol] 54.40 mg/L High 0.0-3.0 [facility] Serum or plasma alanine johnson otransferase (ALT) measurementOrdered By: Edith Gore on 04-24-2025 ALT [Catalytic activity/Vol] 52 U/L High <47 [facility] Serum or plasma albumin cristian urement (mass/volume)Ordered By: Edith Gore on 04-24-2025 Albumin [Mass/Vol] 3.7 g/dL 3.5-5.0 [facility] Serum or plasma albumin/glob ulin mass ratioOrdered By: Edith Gore on 04-24-2025 Albumin/Globulin [Mass ratio] 1.2 {ratio} 0.9-2.4 [facility] Serum or plasma alkaline luis eduardo sphatase measurementOrdered By: Edith Gore on 04-24-2025 ALP [Catalytic activity/Vol] 65 U/L 40-129 [facility] Serum or plasma calcium cristian urement (mass/volume)Ordered By: Edith Gore on 04-24-2025 Calcium [Mass/Vol] 9.2 mg/dL 7.6-11.0 [facility] Serum or plasma urea nitroge n measurement (mass/volume)Ordered By: Edith Gore on 04-24-2025 Urea nitrogen [Mass/Vol] 21 mg/dL High 4-19 [facility] Sodium levelOrdered By: Airam Gore on 04-24-2025 Sodium [Moles/Vol] 139 mmol/L 133-145 [facility] Total proteinOrdered By: Demi Gore on 04-24-2025 Protein [Mass/Vol] 6.9 g/dL 5.9-8.4 [facility] Urinalysis, Routine (Dipstic k)on 04-24-2025 BILIRUBIN URINE Negative Normal Negative [facility] Comment on above: Order Comment: CLEAN CATCH Performed By: #### L 501.0900, L509.1000, L500.2500, L506.1001, L100.0100, L501.1400 #### [facility] [address] [place], [place], [id number] Clarity (U) Clear Normal Clear [facility] Comment on above: Order Comment: CLEAN CATCH Performed By: #### L 501.0900, L509.1000, L500.2500, L506.1001, L100.0100, L501.1400 #### [facility] [address] [place], [place], [id number] Color (U) Yellow Normal Yellow [facility] Comment on above: Order Comment: CLEAN CATCH Performed By: #### L 501.0900, L509.1000, L500.2500, L506.1001, L100.0100, L501.1400 #### [facility] [address] [place], [address] GLUCOSE, UR 1000 mg/dl Abnormal Normal [facility] Comment on above: Order Comment: CLEAN CATCH Performed By: #### L 501.0900, L509.1000, L500.2500, L506.1001, L100.0100, L501.1400 #### [facility] [address] [place], [address] KETONE UR Negative Normal Negative [facility] Comment on above: Order Comment: CLEAN CATCH Performed By: #### L 501.0900, L509.1000, L500.2500, L506.1001, L100.0100, L501.1400 #### [facility] [address] [place], [address] LEUK ESTERASE Negative Normal Negative [facility] Comment on above: Order Comment: CLEAN CATCH Performed By: #### L 501.0900, L509.1000, L500.2500, L506.1001, L100.0100, L501.1400 #### [facility] [address] [place], [address] Nitrite Ql (U) Negative Normal Negative [facility] Comment on above: Order Comment: CLEAN CATCH Performed By: #### L 501.0900, L509.1000, L500.2500, L506.1001, L100.0100, L501.1400 #### [facility] [address] [place], [address] OCCULT BLOOD-UR 150 /ul Abnormal Negative [facility] Comment on above: Order Comment: CLEAN CATCH Performed By: #### L 501.0900, L509.1000, L500.2500, L506.1001, L100.0100, L501.1400 #### [facility] [address] [place], [address] pH UR 6.0 Normal 5.0 - 8.0 [facility] Comment on above: Order Comment: CLEAN CATCH Performed By: #### L 501.0900, L509.1000, L500.2500, L506.1001, L100.0100, L501.1400 #### [facility] [address] [place], [address] PROT DIPSTX 30 mg/dl Abnormal Negative [facility] Comment on above: Order Comment: CLEAN CATCH Performed By: #### L 501.0900, L509.1000, L500.2500, L506.1001, L100.0100, L501.1400 #### [facility] [address] [place], [address] SP.GR. DIPSTX 1.020 Normal 1.002-1.030 [facility] Comment on above: Order Comment: CLEAN CATCH Performed By: #### L 501.0900, L509.1000, L500.2500, L506.1001, L100.0100, L501.1400 #### [facility] [address] [place], [address] UROBILI Normal Normal Normal [facility] Comment on above: Order Comment: CLEAN CATCH Performed By: #### L 501.0900, L509.1000, L500.2500, L506.1001, L100.0100, L501.1400 #### [facility] [address] [place], [address] Urine clarityOrdered By: Demi Gore on 04-24-2025 Clarity (U) Clear Clear [facility] Urine color determinationOrd ered By: Edith Gore on 04-24-2025 Color (U) Yellow Yellow [facility] Urine glucose detectionOrder ed By: Edith Gore on 04-24-2025 Glucose Ql (U) 1000 mg/dl High Normal [facility] Urine leukocyte esterase det ection by dipstickOrdered By: Edith Gore on 04-24-2025 Leukocyte esterase Test strip Ql (U) Negative Negative [facility] Urine pHOrdered By: Edith garcia on 04-24-2025 pH (U) 6.0 [pH] 5.0 - 8.0 [facility] Urine protein measurement (m ass/volume)Ordered By: Edith Gore on 04-24-2025 Protein (U) [Mass/Vol] 39.1 mg/dL High 0.0-12.0 [facility] Urine protein/creatinine mas s ratioOrdered By: Edith Gore on 04-24-2025 Protein/Creatinine (U) [Mass ratio] 210 mg/g CRE High 0-200 [facility] Urine specific gravity measu rementOrdered By: Edith Gore on 04-24-2025 Specific gravity (U) [Rel density] 1.020 1.002-1.030 [facility] Urine urobilinogen measureme ntOrdered By: Edith Gore on 04-24-2025 Urobilinogen Ql (U) Normal mg/dl Normal [facility] White blood cell (WBC) count Ordered By: Edith Gore on 04-24-2025 WBC (Bld) [#/Vol] 12.4 10*3/uL High 4.4-11.0 [facility] CBC W Auto Differential pane l (Bld)on 04-07-2025 Basophils (Bld) [#/Vol] 0.04 10*3/uL Normal <0.11 [facility] Comment on above: Order Comment: Speci men Type: BLOOD SPECIMEN Ordering Facility: [facility] Address: [address] [place] [address] Performed By: #### 5 7021-8 #### [facility] CLIA [id number] [address] [place] [address] [place] Basophils/100 WBC (Bld) 0.3 % Normal [facility] Comment on above: Order Comment: Speci men Type: BLOOD SPECIMEN Ordering Facility: [facility] Address: [address] [place] [address] Performed By: #### 5 7021-8 #### [facility] CLIA [id number] [address] [place] [address] [place] Differential cell count method Nom (Bld) Auto Normal [facility] Comment on above: Order Comment: Speci men Type: BLOOD SPECIMEN Ordering Facility: [facility] Address: [address] [place] [address] Performed By: #### 5 7021-8 #### [facility] CLIA [id number] [address] [place] [address] [place] Eosinophils (Bld) [#/Vol] 0.08 10*3/uL Normal <0.46 [facility] Comment on above: Order Comment: Speci men Type: BLOOD SPECIMEN Ordering Facility: [facility] Address: [address] [place] [address] Performed By: #### 5 7021-8 #### [facility] CLIA [id number] [address] [place] [address] [place] Eosinophils/100 WBC (Bld) 0.6 % Normal [facility] Comment on above: Order Comment: Speci men Type: BLOOD SPECIMEN Ordering Facility: [facility] Address: [address] [place] [address] Performed By: #### 5 7021-8 #### [facility] CLIA [id number] [address] [place] [address] [place] Erythrocyte distribution width (RBC) [Ratio] 14.3 % Normal 11.5-15.0 [facility] Comment on above: Order Comment: Speci men Type: BLOOD SPECIMEN Ordering Facility: [facility] Address: [address] [place] [address] Performed By: #### 5 7021-8 #### [facility] CLIA [id number] [address] [place] [address] [place] Hematocrit (Bld) [Volume fraction] 43.7 % Normal 39.0-51.0 [facility] Comment on above: Order Comment: Speci men Type: BLOOD SPECIMEN Ordering Facility: [facility] Address: [address] [place] [address] Performed By: #### 5 7021-8 #### [facility] CLIA [id number] [address] [place] [address] [place] Hemoglobin (Bld) [Mass/Vol] 14.1 g/dL Normal 13.0-17.0 [facility] Comment on above: Order Comment: Speci men Type: BLOOD SPECIMEN Ordering Facility: [facility] Address: [address] [place] [address] Performed By: #### 5 7021-8 #### [facility] CLIA [id number] [address] [place] [address] [place] Immature granulocytes (Bld) [#/Vol] 0.12 10*3/uL High <0.10 [facility] Comment on above: Order Comment: Speci men Type: BLOOD SPECIMEN Ordering Facility: [facility] Address: [address] [place] [address] Performed By: #### 5 7021-8 #### [facility] CLIA [id number] [address] [place] [address] [place] Immature granulocytes/100 WBC (Bld) 0.8 % Normal [facility] Comment on above: Order Comment: Speci men Type: BLOOD SPECIMEN Ordering Facility: [facility] Address: [address] [place] [address] Performed By: #### 5 7021-8 #### [facility] CLIA [id number] [address] [place] [address] [place] Lymphocytes (Bld) [#/Vol] 3.39 10*3/uL Normal 1.00-4.00 [facility] Comment on above: Order Comment: Speci men Type: BLOOD SPECIMEN Ordering Facility: [facility] Address: [address] [place] [address] Performed By: #### 5 7021-8 #### [facility] CLIA [id number] [address] [place] [address] [place] Lymphocytes/100 WBC (Bld) 23.5 % Normal [facility] Comment on above: Order Comment: Speci men Type: BLOOD SPECIMEN Ordering Facility: [facility] Address: [address] [place] [address] Performed By: #### 5 7021-8 #### [facility] CLIA [id number] [address] [place] [address] MCH (RBC) [Entitic mass] 28.5 pg Normal 26.0-34.0 [facility] Comment on above: Order Comment: Speci men Type: BLOOD SPECIMEN Ordering Facility: [facility] Address: [address] [place] [address] Performed By: #### 5 7021-8 #### [facility] CLIA [id number] [address] [place] [address] [place] MCHC (RBC) [Mass/Vol] 32.3 g/dL Normal 30.5-36.0 [facility] Comment on above: Order Comment: Speci men Type: BLOOD SPECIMEN Ordering Facility: [facility] Address: [address] [place] [address] Performed By: #### 5 7021-8 #### [facility] CLIA [id number] [address] [place] [address] [place] MCV (RBC) [Entitic vol] 88.5 fL Normal 80.0-100.0 [facility] Comment on above: Order Comment: Speci men Type: BLOOD SPECIMEN Ordering Facility: [facility] Address: [address] [place] [address] Performed By: #### 5 7021-8 #### [facility] CLIA [id number] [address] [place] [address] Monocytes (Bld) [#/Vol] 0.77 10*3/uL Normal <0.87 [facility] Comment on above: Order Comment: Speci men Type: BLOOD SPECIMEN Ordering Facility: [facility] Address: [address] [place] [address] Performed By: #### 5 7021-8 #### [facility] CLIA [id number] [address] [place] [address] [place] Monocytes/100 WBC (Bld) 5.3 % Normal [facility] Comment on above: Order Comment: Speci men Type: BLOOD SPECIMEN Ordering Facility: [facility] Address: [address] [place] [address] Performed By: #### 5 7021-8 #### [facility] CLIA [id number] [address] [place] [address] [place] Neutrophils (Bld) [#/Vol] 10.01 10*3/uL High 1.45-7.50 [facility] Comment on above: Order Comment: Speci men Type: BLOOD SPECIMEN Ordering Facility: [facility] Address: [address] [place] [address] Performed By: #### 5 7021-8 #### [facility] CLIA [id number] [address] [place] [address] [place] Neutrophils/100 WBC (Bld) 69.5 % Normal [facility] Comment on above: Order Comment: Speci men Type: BLOOD SPECIMEN Ordering Facility: [facility] Address: [address] [place] [address] Performed By: #### 5 7021-8 #### [facility] CLIA [id number] [address] [place] [address] [place] Nucleated RBC (Bld) [#/Vol] 10*3/uL Normal <0.01 [facility] Comment on above: Order Comment: Speci men Type: BLOOD SPECIMEN Ordering Facility: [facility] Address: [address] [place] [address] Performed By: #### 5 7021-8 #### [facility] CLIA [id number] [address] [place] [address] [place] Nucleated RBC/100 WBC (Bld) [Ratio] 0.0 /100 WBC Normal [facility] Comment on above: Order Comment: Speci men Type: BLOOD SPECIMEN Ordering Facility: [facility] Address: [address] [place] [address] Performed By: #### 5 7021-8 #### [facility] CLIA [id number] [address] [place] [address] [place] Platelet mean volume (Bld) [Entitic vol] 8.5 fL Low 9.0-12.7 [facility] Comment on above: Order Comment: Speci men Type: BLOOD SPECIMEN Ordering Facility: [facility] Address: [address] [place] [address] Performed By: #### 5 7021-8 #### [facility] CLIA [id number] [address] [place] [address] [place] Platelets (Bld) [#/Vol] 262 10*3/uL Normal 150-400 [facility] Comment on above: Order Comment: Speci men Type: BLOOD SPECIMEN Ordering Facility: [facility] Address: [address] [place] [address] Performed By: #### 5 7021-8 #### [facility] CLIA [id number] [address] [place] [address] [place] RBC (Bld) [#/Vol] 4.94 10*6/uL Normal 4.20-6.00 [facility] Comment on above: Order Comment: Speci men Type: BLOOD SPECIMEN Ordering Facility: [facility] Address: [address] [place] [address] Performed By: #### 5 7021-8 #### [facility] CLIA [id number] [address] [place] [address] [place] WBC (Bld) [#/Vol] 14.41 10*3/uL High 3.70-11.00 [facility] Comment on above: Order Comment: Speci men Type: BLOOD SPECIMEN Ordering Facility: [facility] Address: [address] [place] [address] Performed By: #### 5 7021-8 #### [facility] CLIA [id number] [address] [place] [address] [place] Comprehensive metabolic 2000 panelon 04-07-2025 Albumin [Mass/Vol] 3.5 g/dL Low 3.9-4.9 [facility] Comment on above: Order Comment: Speci men Type: BLOOD SPECIMEN Ordering Facility: [facility] Address: [address] [place], [place] [address], [place] [address] Performed By: #### 2 4323-8, [id number], 12490-7 #### [facility] CLIA [id number] [address] [place] [address] [place] ALP [Catalytic activity/Vol] 61 U/L Normal 38-113 [facility] Comment on above: Order Comment: Speci men Type: BLOOD SPECIMEN Ordering Facility: [facility] Address: [address] [place] [address] Performed By: #### 2 4323-8, [id number], 84318-9 #### [facility] CLIA [id number] [address] [place] [address] [place] ALT [Catalytic activity/Vol] 51 U/L Normal 10-54 [facility] Comment on above: Order Comment: Speci men Type: BLOOD SPECIMEN Ordering Facility: [facility] Address: [address] [place] [address] Performed By: #### 2 4323-8, [id number], 87855-0 #### [facility] CLIA [id number] [address] [place] [address] [place] Anion gap [Moles/Vol] 11 mmol/L Normal 8-15 [facility] Comment on above: Order Comment: Speci men Type: BLOOD SPECIMEN Ordering Facility: [facility] Address: [address] [place] [address] Performed By: #### 2 4323-8, [id number], 10494-9 #### [facility] CLIA [id number] [address] [place] [address] [place] AST [Catalytic activity/Vol] 20 U/L Normal 14-40 [facility] Comment on above: Order Comment: Speci men Type: BLOOD SPECIMEN Ordering Facility: [facility] Address: [address] [place], [place] [address] [address] Performed By: #### 2 4323-8, [id number], 71361-6 #### [facility] CLIA [id number] [address] [place] [address] [place] Bilirubin [Mass/Vol] 0.2 mg/dL Normal 0.2-1.3 [facility] Comment on above: Order Comment: Speci men Type: BLOOD SPECIMEN Ordering Facility: [facility] Address: [address] [place] [address] Performed By: #### 2 4323-8, [id number], 59643-6 #### [facility] CLIA [id number] [address] [place] [address] [place] Calcium [Mass/Vol] 9.0 mg/dL Normal 8.5-10.2 [facility] Comment on above: Order Comment: Speci men Type: BLOOD SPECIMEN Ordering Facility: [facility] Address: [address] [place] [address] Performed By: #### 2 4323-8, [id number], 72068-8 #### [facility] CLIA [id number] [address] [place] [address] [place] Chloride [Moles/Vol] 102 mmol/L Normal 98-107 [facility] Comment on above: Order Comment: Speci men Type: BLOOD SPECIMEN Ordering Facility: [facility] Address: [address] [place] [address] Performed By: #### 2 4323-8, [id number], 55220-8 #### [facility] CLIA [id number] [address] [place] [address] [place] CO2 [Moles/Vol] 23 mmol/L Normal 22-30 [facility] Comment on above: Order Comment: Speci men Type: BLOOD SPECIMEN Ordering Facility: [facility] Address: [address] [place] [address] Performed By: #### 2 4323-8, [id number], 17281-6 #### [facility] CLIA [id number] [address] [place] [address] [place] Creatinine [Mass/Vol] 0.89 mg/dL Normal 0.73-1.22 [facility] Comment on above: Order Comment: Speci men Type: BLOOD SPECIMEN Ordering Facility: [facility] Address: [address] [place] [address] Performed By: #### 2 4323-8, [id number], 99340-6 #### [facility] CLIA [id number] [address] [place] [address] [place] Creatinine and Glomerular filtration rate.predicted panel (S/P/Bld) 112 mL/min/1.73m??? Normal >=60 [facility] Comment on above: Order Comment: Carlita zamudio Type: BLOOD SPECIMEN Ordering Facility: [facility] Address: [address] [place] [address] Result Comment: Ana mated Glomerular Filtration Rate [...] actual GFR. Performed By: #### 2 4323-8, [id number], 98127-6 #### [facility] CLIA [id number] [address] [place] [address] [place] Glucose [Mass/Vol] 122 mg/dL High 74-99 [facility] Comment on above: Order Comment: Carlita zamudio Type: BLOOD SPECIMEN Ordering Facility: [facility] Address: [address] [place] [address] Result Comment: The [place] [employer] (ADA) provides guidance for cutoff [...] Standards of Medical Care in Diabetes 2016, [place] [employer]. Diabetes Care. 2016.39(Suppl 1). Performed By: #### 2 4323-8, [id number], 63527-1 #### [facility] CLIA [id number] [address] [place] [address] [place] Potassium [Moles/Vol] 3.8 mmol/L Normal 3.7-5.1 [facility] Comment on above: Order Comment: Speci men Type: BLOOD SPECIMEN Ordering Facility: [facility] Address: [address] [place] [address] Performed By: #### 2 4323-8, [id number], 13441-6 #### [facility] CLIA [id number] [address] [place] [address] [place] Protein [Mass/Vol] 6.1 g/dL Low 6.3-8.0 [facility] Comment on above: Order Comment: Speci men Type: BLOOD SPECIMEN Ordering Facility: [facility] Address: [address] [place] [address] Performed By: #### 2 4323-8, [id number], 77835-3 #### [facility] CLIA [id number] [address] [place] [address] [place] Sodium [Moles/Vol] 136 mmol/L Normal 136-144 [facility] Comment on above: Order Comment: Speci men Type: BLOOD SPECIMEN Ordering Facility: [facility] Address: [address] [place] [address] Performed By: #### 2 4323-8, [id number], 83706-8 #### [facility] CLIA [id number] [address] [place] [address] [place] Urea nitrogen [Mass/Vol] 27 mg/dL High 9-24 [facility] Comment on above: Order Comment: Speci men Type: BLOOD SPECIMEN Ordering Facility: [facility] Address: [address] [place] [address] Performed By: #### 2 4323-8, [id number], 32550-5 #### [facility] CLIA [id number] [address] [place] [address] [place] ECG COMPLETEon 04-07-2025 ECG COMPLETE Ventricular Rate : 8 9 BPM Atrial Rate : 89 BPM P-R Interval : 134 ms QRS Duration : 72 ms Q-T Interval : 330 ms QTC Calculation(Bazett) : 401 ms Calculated P Clements : 36 degrees Calculated R Clements : -13 degrees Calculated T Clements : 35 degrees Normal sinus rhythm Inferior infarct , age undetermined Abnormal ECG No previous ECGs available Confirmed by ALINA ALVAREZ MD ([id number]) on 04/09/2025 1:38:23 PM NAME : KRYSTEN CROOK PID : [id number] : 1985 Gender : Male Race : ORD : [id number] Procedure Date : Apr 07 2025 19:31:26 Edit Date : Apr 09 2025 13:38:26 Diagnosis: Normal sinus rhythm Inferior infarct , age undetermined Abnormal ECG No previous ECGs available Confirmed by ALINA ALVAREZ MD ([id number]) on 04/09/2025 1:38:23 PM Test Reason : HCS Location : 3 : ED ED Overread By : ALINA ALVAREZ MD Edited By : ALINA ALVAREZ MD Referred By : , Acquired by : MICHELLE JIMENEZ [facility] ED NOTEon 04-07-2025 ED NOTE HNO ID: [id number] Author: XIMENA LEIJA RN Service: ? Author Type: Registered Nurse Type: ED Notes Filed: 04/07/2025 22:31 Note Text: Patient declines waiting for discharge for 30-45 minutes after receiving intravenous lasix; MD Marilyn Davalos notified. Patient declines wheel chair for discharge. [facility] ED NOTE HNO ID: [id number] Author: ANKUSH PEGUERO RN Service: Nursing Author Type: Registered Nurse Type: ED Notes Filed: 04/07/2025 20:55 Note Text: Report given to SHEELA Anguiano [facility] ED NOTE HNO ID: [id number] Author: KEIRA BRUMFIELD RN Service: ? Author Type: Registered Nurse Type: ED Notes Filed: 04/07/2025 18:28 Note Text: Patient c/o general body swelling that began today. [facility] ED PROV NOTEon 04-07-2025 ED PROV NOTE HNO ID: [id number] Author: ANNE DAVALOS DO Service: Emergency Medicine Author Type: Physician [...] Clinical Impression ED Course as of 04/07/252200 Current, Anne Lugo's Documentation Sat Apr 07, 20252007 [...] I suspect patient's (more content not included)... [facility] ED Triage Noteon 04-07-2025 ED Triage Note HNO ID: [id number] Author: TRICIA ALBA APRN.RADHA Service: Emergency Medicine Author Type: Nurse Practitioner [...] patient as a primary patient. See other physician/MANAGER SYSTEMS/PA notation. SIGNATURE: Triica Alba APRN.RADHA Normal [facility] HIGH SENSITIVITY TROPONIN T (INITIAL)on 04-07-2025 Troponin T.cardiac High sensitivity method [Mass/Vol] <6 Normal <12 [facility] Comment on above: Order Comment: Carlita zamudio Type: BLOOD SPECIMEN Ordering Facility: [facility] Address: [address] [place] [address] Performed By: #### 2 4323-8, [id number], 54912-6 #### [facility] CLIA [id number] [address] [place] [address] [place] HIGH SENSITIVITY TROPONIN T (SECOND)on 04-07-2025 Troponin T.cardiac High sensitivity method [Mass/Vol] <6 Normal <12 [facility] Comment on above: Order Comment: Carlita zamudio Type: BLOOD SPECIMENOrdering Facility: [facility] Address: [address] [place] [address] Performed By: #### L [id number] ####[facility] [id number] [address] [place] [facility] Natriuretic peptide.B prohormone N-Terminal [Mass/Vol] <36 Normal <125 [facility] Comment on above: Order Comment: Speci men Type: BLOOD SPECIMEN Ordering Facility: [facility] Address: [address] [place] [address] Performed By: #### 2 4323-8, [id number], 32877-6 #### [facility] CLIA [id number] [address] [place] [address] [place] Urinalysis complete panel (U )on 04-07-2025 Bilirubin Ql (U) Negative Normal Negative [facility] Comment on above: Order Comment: Speci men Type: URINE SPECIMEN Ordering Facility: [facility] Address: [address] [place] [address] Performed By: #### 2 4356-8 #### [facility] CLIA [id number] [address] [place] [address] [place] Clarity (Unsp spec) Clear Normal Clear [facility] Comment on above: Order Comment: Speci men Type: URINE SPECIMEN Ordering Facility: [facility] Address: [address] [place] [address] Performed By: #### 2 4356-8 #### [facility] CLIA [id number] [address] [place] [address] [place] Color (U) Yellow Normal Yellow [facility] Comment on above: Order Comment: Speci men Type: URINE SPECIMEN Ordering Facility: [facility] Address: [address] [place] [address] Performed By: #### 2 4356-8 #### [facility] CLIA [id number] [address] [place] [address] [place] Glucose Test strip (U) [Mass/Vol] 2+ Abnormal Negative [facility] Comment on above: Order Comment: Speci men Type: URINE SPECIMEN Ordering Facility: [facility] Address: [address] [place] [address] Performed By: #### 2 4356-8 #### [facility] CLIA [id number] [address] [place] [address] [place] Hemoglobin Ql (U) 2+ Abnormal Negative [facility] Comment on above: Order Comment: Speci men Type: URINE SPECIMEN Ordering Facility: [facility] Address: [address] [place] [address] Performed By: #### 2 4356-8 #### [facility] CLIA [id number] [address] [place] [address] [place] Ketones Ql (U) Negative Normal Negative [facility] Comment on above: Order Comment: Speci men Type: URINE SPECIMEN Ordering Facility: [facility] Address: [address] [place] [address] Performed By: #### 2 4356-8 #### [facility] CLIA [id number] [address] [place] [address] [place] Leukocyte esterase Test strip Ql (U) Negative Normal Negative [facility] Comment on above: Order Comment: Speci men Type: URINE SPECIMEN Ordering Facility: [facility] Address: [address] [place] [address] Performed By: #### 2 4356-8 #### [facility] CLIA [id number] [address] [place] [address] [place] Nitrite Ql (U) Negative Normal Negative [facility] Comment on above: Order Comment: Speci men Type: URINE SPECIMEN Ordering Facility: [facility] Address: [address] [place] [address] Performed By: #### 2 4356-8 #### [facility] CLIA [id number] [address] [place] [address] [place] pH (U) 6.0 [pH] Normal 5.0-8.0 [facility] Comment on above: Order Comment: Speci men Type: URINE SPECIMEN Ordering Facility: [facility] Address: [address] [place] [address] Performed By: #### 2 4356-8 #### [facility] CLIA [id number] [address] [place] [address] [place] Protein (U) [Mass/Vol] 1+ Abnormal Negative [facility] Comment on above: Order Comment: Speci men Type: URINE SPECIMEN Ordering Facility: [facility] Address: [address] [place] [address] Performed By: #### 2 4356-8 #### [facility] CLIA [id number] [address] [place] [address] [place] RBC LM.HPF (Urine sed) [#/Area] 0-3 /HPF Normal 0-3 /HPF [facility] Comment on above: Order Comment: Speci men Type: URINE SPECIMEN Ordering Facility: [facility] Address: [address] [place] [address] Performed By: #### 2 4356-8 #### [facility] CLIA [id number] [address] [place] [address] [place] Specific gravity (U) [Rel density] >=1.030 Normal 1.005-1.030 [facility] Comment on above: Order Comment: Speci men Type: URINE SPECIMEN Ordering Facility: [facility] Address: [address] [place] [address] Performed By: #### 2 4356-8 #### [facility] CLIA [id number] [address] [place] [address] Urobilinogen Ql (U) 0.2 EU/dL Normal 0.2-1.0 EU/dL [facility] Comment on above: Order Comment: Speci men Type: URINE SPECIMEN Ordering Facility: [facility] Address: [address] [place] [address] Performed By: #### 2 4356-8 #### [facility] CLIA [id number] [address] [place] [address] [place] WBC LM.HPF (Urine sed) [#/Area] 0-5 /HPF Normal 0-5 /HPF [facility] Comment on above: Order Comment: Speci men Type: URINE SPECIMEN Ordering Facility: [facility] Address: [address] [place] [address] Performed By: #### 2 4356-8 #### [facility] CLIA [id number] [address] [place] [address] [place] XR CHEST 1V FRONTAL [...] Stable exam with no definite acute disease. Ultrasound Technol: PSCB Transcribe Date/Time: Apr 07 2025 8:42P Dictated by : YASMEEN MARSHALL MD This examination was interpreted and the report reviewed and electronically signed by: YASMEEN MARSHALL MD on Apr 07 2025 8:43PM EST [id number] Normal [facility] 04-06-2025 [place] [address] Patient: KRYSTEN CROOK V. Phone#: : 1985 Age: 39 Gender: M Pt. Type: Out Account: [id number] Location: [facility] Ordering: EDITH GORE Exam Date: 04/06/2025/11:11 Family Phys: HUY Pinzon PAGE Charge Code: 001823 Physician: Harper Order #: [id number] Dose#: PROCEDURE: LIVER ULTRASOUND COMPARISON: None. INDICATIONS: [...] Hopkins MD on 04/06/2025 at 19:35 Normal [facility] Absolute lymphocyte countOrd ered By: Cayla Logan on 03-26-2025 Lymphocytes Auto (Unsp spec) [#/Vol] 2.43 10*3/uL 0.83-4.51 [facility] Absolute neutrophil countOrd ered By: Cayla Logan on 03-26-2025 Neutrophils (Bld) [#/Vol] 13.7 10*3/uL High 2.0-7.7 [facility] Anion gap in Serum or Plasma Ordered By: Cayla Lopezrosa on 03-26-2025 Anion gap [Moles/Vol] 11 mmol/L 5-15 [facility] Automated lymphocyte count a s percentage of total leukocytesOrdered By: Sierra Tucsonzulma [facility] on 03-26-2025 Lymphocytes/100 WBC Auto (Unsp spec) 14.1 % Low 19-41 [facility] BUN/creatinine ratioOrdered By: Sierra Tucsonzulma Lopezrosa on 03-26-2025 Urea nitrogen/Creatinine [Mass ratio] 27.6 mg/mg High 10- [facility] Basic Metabolic Profile (BMP )on 03-26-2025 BUN/CRE 27.6 RATIO High 08-06 [facility] Comment on above: Performed By: #### L 501.0900, L509.1000, L500.2500, L506.1001, L100.0100, L501.1400 #### [facility] [address] [place], [address] Calcium [Mass/Vol] 9.1 mg/dL Normal 7.6-11.0 [facility] Comment on above: Performed By: #### L 501.0900, L509.1000, L500.2500, L506.1001, L100.0100, L501.1400 #### [facility] [address] [place], [address] Chloride [Moles/Vol] 100 mmol/L Normal 98-108 [facility] Comment on above: Performed By: #### L 501.0900, L509.1000, L500.2500, L506.1001, L100.0100, L501.1400 #### [facility] [address] [place], [address] CO2 [Moles/Vol] 23.4 mmol/L Normal 21.0-32.0 [facility] Comment on above: Performed By: #### L 501.0900, L509.1000, L500.2500, L506.1001, L100.0100, L501.1400 #### [facility] [address] [place], [address] Creatinine [Mass/Vol] 0.80 mg/dL Normal 0.70-1.20 [facility] Comment on above: Performed By: #### L 501.0900, L509.1000, L500.2500, L506.1001, L100.0100, L501.1400 #### [facility] [address] [place], [address] GAP 11 Normal 5-15 [facility] Comment on above: Performed By: #### L 501.0900, L509.1000, L500.2500, L506.1001, L100.0100, L501.1400 #### [facility] [address] [place], [address] GFR/1.73 sq M.predicted among non-blacks MDRD (S/P/Bld) [Vol rate/Area] 116 mL/min/{1.73_m2} Normal >60 [facility] Comment on above: Result Comment: mL/m in/1.73m2 CKD-EPI Creatinine Equation (2020) Performed By: #### L 501.0900, L509.1000, L500.2500, L506.1001, L100.0100, L501.1400 #### [facility] [address] [place], [address] Glucose [Mass/Vol] 106 mg/dL High 70-99 [facility] Comment on above: Performed By: #### L 501.0900, L509.1000, L500.2500, L506.1001, L100.0100, L501.1400 #### [facility] [address] [place], [address] Potassium [Moles/Vol] 4.2 mmol/L Normal 3.3-5.1 [facility] Comment on above: Performed By: #### L 501.0900, L509.1000, L500.2500, L506.1001, L100.0100, L501.1400 #### [facility] [address] [place], [address] Sodium [Moles/Vol] 135 mmol/L Normal 133-145 [facility] Comment on above: Performed By: #### L 501.0900, L509.1000, L500.2500, L506.1001, L100.0100, L501.1400 #### [facility] [address] [place], [address] Urea nitrogen [Mass/Vol] 22 mg/dL High 4-19 [facility] Comment on above: Performed By: #### L 501.0900, L509.1000, L500.2500, L506.1001, L100.0100, L501.1400 #### [facility] [address] [place], [address] Basophil percentageOrdered B y: Cayla Logan on 03-26-2025 Basophils/100 WBC (Bld) 0.3 % 0-1 [facility] CBC W/Diff, Automatedon Absolute Lymph 2.43 X10 3/uL Normal 0.83-4.51 [facility] Comment on above: Performed By: #### L 501.0900, L509.1000, L500.2500, L506.1001, L100.0100, L501.1400 #### [facility] [address] [place], [address] Absolute Neut 13.7 X10 3/uL High 2.0-7.7 [facility] Comment on above: Performed By: #### L 501.0900, L509.1000, L500.2500, L506.1001, L100.0100, L501.1400 #### [facility] [address] [place], [address] Basophils/100 WBC (Bld) 0.3 % Normal 0-1 [facility] Comment on above: Performed By: #### L 501.0900, L509.1000, L500.2500, L506.1001, L100.0100, L501.1400 #### [facility] [address] [place], [address] Eosinophils/100 WBC (Bld) 0.1 % Normal 0-5 [facility] Comment on above: Performed By: #### L 501.0900, L509.1000, L500.2500, L506.1001, L100.0100, L501.1400 #### [facility] [address] [place], [address] Erythrocyte distribution width (RBC) [Ratio] 14.4 % Normal 11.6-14.6 [facility] Comment on above: Performed By: #### L 501.0900, L509.1000, L500.2500, L506.1001, L100.0100, L501.1400 #### [facility] [address] [place], [address] Hematocrit (Bld) [Volume fraction] 47.8 % Normal 40-54 [facility] Comment on above: Performed By: #### L 501.0900, L509.1000, L500.2500, L506.1001, L100.0100, L501.1400 #### [facility] [address] [place], [address] Hemoglobin (Bld) [Mass/Vol] 15.6 g/dL Normal 13.0-16.5 [facility] Comment on above: Performed By: #### L 501.0900, L509.1000, L500.2500, L506.1001, L100.0100, L501.1400 #### [facility] [address] [facility] [place], [address] IG% 0.900 Normal 0.0-0.9 [facility] Comment on above: Result Comment: IG% - Immature Granulocytes (promyelocytes, myelocytes and metamyelocytes) > 1% indicates that a LEFT SHIFT is Present. Performed By: #### L 501.0900, L509.1000, L500.2500, L506.1001, L100.0100, L501.1400 #### [facility] [address] [place], [address] Lymphocytes/100 WBC (Bld) 14.1 % Low 19-41 [facility] Comment on above: Performed By: #### L 501.0900, L509.1000, L500.2500, L506.1001, L100.0100, L501.1400 #### [facility] [address] [place], [address] MCH (RBC) [Entitic mass] 28.9 pg Normal 27.0-32.0 [facility] Comment on above: Performed By: #### L 501.0900, L509.1000, L500.2500, L506.1001, L100.0100, L501.1400 #### [facility] [address] [place], [address] MCHC (RBC) [Mass/Vol] 32.6 g/dL Normal 32-36 [facility] Comment on above: Performed By: #### L 501.0900, L509.1000, L500.2500, L506.1001, L100.0100, L501.1400 #### [facility] [address] [place], [address] MCV (RBC) [Entitic vol] 88.5 fL Normal 80-94 [facility] Comment on above: Performed By: #### L 501.0900, L509.1000, L500.2500, L506.1001, L100.0100, L501.1400 #### [facility] [address] [place], [address] Monocytes/100 WBC (Bld) 4.9 % Normal 0-10 [facility] Comment on above: Performed By: #### L 501.0900, L509.1000, L500.2500, L506.1001, L100.0100, L501.1400 #### [facility] [address] [place], [address] Neutrophils/100 WBC (Bld) 79.7 % High 47-70 [facility] Comment on above: Performed By: #### L 501.0900, L509.1000, L500.2500, L506.1001, L100.0100, L501.1400 #### [facility] [address] [place], [address] Nucleated RBC (Bld) [#/Vol] 0 10*3/uL Normal 0-5 [facility] Comment on above: Performed By: #### L 501.0900, L509.1000, L500.2500, L506.1001, L100.0100, L501.1400 #### [facility] [address] [place], [address] Platelet mean volume (Bld) [Entitic vol] 9.1 fL Normal 6.2-12.0 [facility] Comment on above: Performed By: #### L 501.0900, L509.1000, L500.2500, L506.1001, L100.0100, L501.1400 #### [facility] [address] [place], [address] Platelets (Bld) [#/Vol] 309 10*3/uL Normal 150-450 [facility] Comment on above: Performed By: #### L 501.0900, L509.1000, L500.2500, L506.1001, L100.0100, L501.1400 #### [facility] [address] [place], [address] RBC (Bld) [#/Vol] 5.40 10*6/uL Normal 4.6-6.2 [facility] Comment on above: Performed By: #### L 501.0900, L509.1000, L500.2500, L506.1001, L100.0100, L501.1400 #### [facility] [address] [place], [address] RDW SD 46.4 fl High 35.1-43.9 [facility] Comment on above: Performed By: #### L 501.0900, L509.1000, L500.2500, L506.1001, L100.0100, L501.1400 #### [facility] [address] [place], [address] WBC (Bld) [#/Vol] 17.2 10*3/uL High 4.4-11.0 [facility] Comment on above: Performed By: #### L 501.0900, L509.1000, L500.2500, L506.1001, L100.0100, L501.1400 #### [facility] [place], [address] Carbon dioxide, total [Moles /volume] in Central venous bloodOrdered By: Cayla Logan on 03-26-2025 CO2 [Moles/Vol] 23.4 mmol/L 21.0-32.0 [facility] Chloride assayOrdered By: alessandro Logan on 03-26-2025 Chloride [Moles/Vol] 100 mmol/L 98-108 [facility] Eosinophil percentageOrdered By: Sierra Tucsonzulma [facility] on 03-26-2025 Eosinophils/100 WBC (Bld) 0.1 % 0-5 [facility] Erythrocyte distribution wid th ratioOrdered By: [facility] on 03-26-2025 Erythrocyte distribution width (RBC) [Ratio] 14.4 % 11.6-14.6 [facility] Erythrocyte distribution wid th standard deviationOrdered By: Sierra Tucsonzulma Lopezrosa on 03-26-2025 Erythrocyte distribution width (RBC) [Ratio] 46.4 fl High 35.1-43.9 [facility] Glomerular filtration rate ( GFR) estimation/1.73 sq m using serum, plasma, or whole bOrdered By: alessandro Lopezrosa on 03-26-2025 GFR/1.73 sq M.predicted among non-blacks MDRD (S/P/Bld) [Vol rate/Area] 116 mL/min/{1.73_m2} >60 [facility] Comment on above: mL/min/1.73m2 CKD-EP I Creatinine Equation (2020) Hematocrit Auto (Bld) [Volum e fraction]Ordered By: alessandro Logan on 03-26-2025 Hematocrit (Bld) [Volume fraction] 47.8 % 40-54 [facility] Hemoglobin measurementOrdere d By: alessandro Logan on 03-26-2025 Hemoglobin (Bld) [Mass/Vol] 15.6 g/dL 13.0-16.5 [facility] Immature granulocytes/100 WB C Auto (Bld)Ordered By: Bhavnish Bucktowarsing on 03-26-2025 Immature granulocytes/100 WBC (Bld) 0.900 % 0.0-0.9 [facility] Comment on above: IG% - Immature Granu locytes (promyelocytes, myelocytes and metamyelocytes) > 1% indicates that a LEFT SHIFT is Present. MCV (mean corpuscular volume ) determinationOrdered By: [facility] Hospital[facility]ars[facility] on 03-26-2025 MCV (RBC) [Entitic vol] 88.5 fL 80-94 [facility] Mean corpuscular hemoglobin (MCH) determinationOrdered By: [facility] on 03-26-2025 MCH (RBC) [Entitic mass] 28.9 pg 27.0-32.0 [facility] Mean corpuscular hemoglobin concentration (MCHC) determinationOrdered By: [facility] on 03-26-2025 MCHC (RBC) [Mass/Vol] 32.6 g/dL 32-36 [facility] Mean platelet volume determi nationOrdered By: [facility]als[facility] on 03-26-2025 Platelet mean volume (Bld) [Entitic vol] 9.1 fL 6.2-12.0 [facility] Monocyte percentageOrdered B y: [facility] on 03-26-2025 Monocytes/100 WBC (Bld) 4.9 % 0-10 [facility] Neutrophil percentageOrdered By: [facility] on 03-26-2025 Neutrophils/100 WBC (Bld) 79.7 % High 47-70 [facility] Nucleated red blood cell per centageOrdered By: [facility] on 03-26-2025 Nucleated RBC/100 WBC (Bld) [Ratio] 0 % 0-5 [facility] PTHINon 03-26-2025 PTH 50 pg/mL Normal 11-61 [facility] Comment on above: Performed By: #### L 501.0900, L509.1000, L500.2500, L506.1001, L100.0100, L501.1400 #### [facility] [address] [place], [place], [id number] Platelet countOrdered By: Kaye Logan on 03-26-2025 Platelets (Bld) [#/Vol] 309 10*3/uL 150-450 [facility] Potassium measurement (mass/ volume)Ordered By: Cayla Logan on 03-26-2025 Potassium (Unsp spec) [Mass/Vol] 4.2 mmol/L 3.3-5.1 [facility] Protein+Creatinine Ratio,Uri neon 03-26-2025 PROT:CRE RATIO 495 mg/g CRE High 0-200 [facility] Comment on above: Performed By: #### L 501.0900, L509.1000, L500.2500, L506.1001, L100.0100, L501.1400 #### [facility] [address] [place], [address] Protein (U) [Mass/Vol] 23.7 mg/dL High 0.0-12.0 [facility] Comment on above: Performed By: #### L 501.0900, L509.1000, L500.2500, L506.1001, L100.0100, L501.1400 #### [facility] [address] [place], [address] UR CREAT 47.90 mg/dL Normal 39.00-259.00 [facility] Comment on above: Performed By: #### L 501.0900, L509.1000, L500.2500, L506.1001, L100.0100, L501.1400 #### [facility] [address] [place], [address] RBC Auto (Bld) [#/Vol]Ordere d By: Cayla Logan on 03-26-2025 RBC (Bld) [#/Vol] 5.40 10*6/uL 4.6-6.2 [facility] Random urine creatinine cristian urement (mass/volume)Ordered By: Cayla Logan on 03-26-2025 Creatinine Unsp time (U) [Mass/Vol] 47.90 mg/dL 39.00-259.00 [facility] Serum creatinine measurement (mass/volume)Ordered By: Cayla Logan on 03-26-2025 Creatinine [Mass/Vol] 0.80 mg/dL 0.70-1.20 [facility] Serum glucose measurement (m ass/volume)Ordered By: alessandro Logan on 03-26-2025 Glucose [Mass/Vol] 106 mg/dL High 70-99 [facility] Serum or plasma calcium cristian urement (mass/volume)Ordered By: alessandro Lopezrosa on 03-26-2025 Calcium [Mass/Vol] 9.1 mg/dL 7.6-11.0 [facility] Serum or plasma urea nitroge n measurement (mass/volume)Ordered By: alessandro Lopezrosa on 03-26-2025 Urea nitrogen [Mass/Vol] 22 mg/dL High 4-19 [facility] Serum or plasma uric acid me asurement (mass/volume)Ordered By: alessandro Logan on 03-26-2025 Urate [Mass/Vol] 3.6 mg/dL 3.5-7.2 [facility] Comment on above: The drugs N-Acetylcy steine and Metamizole may falsely depress this assay. Sodium levelOrdered By: Cathy Logan on 03-26-2025 Sodium [Moles/Vol] 135 mmol/L 133-145 [facility] Uric Acidon 03-26-2025 URIC 3.6 mg/dL Normal 3.5-7.2 [facility] Comment on above: Result Comment: The drugs N-Acetylcysteine and Metamizole may falsely depress this assay. Performed By: #### L 501.0900, L509.1000, L500.2500, L506.1001, L100.0100, L501.1400 #### [facility] [address] [place], [place], [address] Urine protein measurement (m ass/volume)Ordered By: Cayla Logan on 03-26-2025 Protein (U) [Mass/Vol] 23.7 mg/dL High 0.0-12.0 [facility] Urine protein/creatinine mas s ratioOrdered By: Cayla Logan on 03-26-2025 Protein/Creatinine (U) [Mass ratio] 495 mg/g CRE High 0-200 [facility] Vitamin D,25 Hydroxyon 03-26 Vitamin D 25-OH 23.7 ng/mL Low 30-100 [facility] Comment on above: Result Comment: Amelie min D Status Deficiency: <20 ng/mL (50nmol/L) Insufficiency: 20-30 ng/mL (50-75 nmol/L) Sufficiency: 30-100 ng/mL (75-250 nmol/L) Toxicity: >100 ng/mL (>250 nmol/L) Performed By: #### L 501.0900, L509.1000, L500.2500, L506.1001, L100.0100, L501.1400 #### [facility] [address] [place], [place], [id number] White blood cell (WBC) count Ordered By: Cayla Logan on 03-26-2025 WBC (Bld) [#/Vol] 17.2 10*3/uL High 4.4-11.0 [facility] CNOVon 01-24-2025 CNOV Office Visit (FMUPCE ) -- KRYSTEN CROOK V ([id number]) 1985 M Date Time Provider Department 01/24/25 9:00 AM HUY MARQUEZ FMUPNETTE During your visit today, we recorded the following information about you: Pulse Blood pressure Weight Height 60/minute 110/78 136.1 kg 1.727 m Huy Marquez MD 01/24/2025 12:31 PM Signed Huy Marquez MD [address] [place] [address] Dept: [phone] Dept Visit Date: January 24, 2025 Name: Krysten Crook Date of : 1985 MRN/E #: [id number] Age: [age] year old Sex: male Subjective Patient presents with: Follow Up The patient consented to the use of SNTMNT software for draft documentation of the visit consistent with [facility]?s Notice of Privacy Practices. Subjective Hypertension: - Blood pressure reportedly well-controlled. - Currently taking lisinopril. 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 - Under the care of machine spreader - now taking Farxiga. - Awaiting delivery of [place] per nephrology - Followed by clinical fellow as well Active Non-Hospital Problems Diagnosis IgA [...] Huy Marquez MD Date: January 24, 2025 Huy Marquez MD 01/24/2025 12:17 PM Addendum - Continue taking Farxiga and Lisinopril as prescribed. - Follow up with your kidney doctor - Continue follow-up with your clinical fellow - Next appointment with your primary care [...] without serious comorbi (more content not included)... [facility] Final Surgical Pathology Rep rodger 12-29-2024 Final Surgical Pathology Report . Pathology Reports Accession: Collected Date/Time: Received Date/Time: Pathologist: [id number] 12/21/2024 09:03 EST 12/21/2024 09:53 EST JEFERSON OLIVIER MD Final Surgical Pathology Report DIAGNOSIS: A. KIDNEY, LEFT, KASAAN BIOPSY: - IGA NEPHROPATHY WITH CRESCENTS. SEE COMMENT. CHRONICITY TABLE: TOTAL GLOMERULI- 30 GLOBAL GLOMERULOSCLEROSIS- 0 SEGMENTAL SCLEROSIS- PRESENT INTERSTITIAL FIBROSIS- MINIMAL TUBULAR ATROPHY- MINIMAL ARTERIAL INTIMAL FIBROSIS- NONE ARTERIOLAR HYALINOSIS- NONE SPECIMEN PROCESSED AT [facility] AND INTERPRETATION RENDERED BY [facility] NEPHROPATHOLOGY SERVICE. FULL REPORT SCANNED INTO EMR. CLINICAL INFORMATION: Procedure: CT RANDOM RENAL CORE BIOPSY Preoperative diagnosis: PROTEINURIA SPECIMEN: A LEFT KIDNEY GROSS DESCRIPTION: All parts labelled with patient name and [id number] Received fresh in saline labelled left renal are 5 thin, pale mckeon cores of soft tissue. The one core is placed in glutaraldehyde. The remaining cores are divided and submitted in (2 cores) Josiah's fixative, and (1 cord) formalin. The specimen is entirely submitted to [facility].- Yehuda Young, Pathologists' Button Machine Operator (ASCP) Performed by YEHUDA YOUNG MICROSCOPIC DESCRIPTION: The microscopic examination is performed, except in the case of Gross Only. Verified by Pathology Report verified by [facility] JEFERSON OLIVIER Sign out Date: 12/29/2024 09:28 Performing Lab: [facility], [address] [place] [address] Pathology Dept Disclaimer If ancillary studies were utilized, the following Laboratory Developed Test (LDT) disclaimer will apply: Under CLIA requirements, [facility] is qualified to perform high complexity testing. For all ancillary stains, positive and negative controls stain appropriately. Performance characteristics of immunohistochemical and chromogenic in-situ hybridization tests have been determined by [facility]. These tests are used for clinical purposes, They should not be regarded as investigational or for research. Normal [facility] BMP with eGFRon 12-26-2024 AGE 39 years Normal [facility] Comment on above: Performed By: #### 2 [id number] #### [facility],[address] [place] [address] 05634 Anion gap [Moles/Vol] 11 mmol/L Normal 10 - 20 [facility] Comment on above: Performed By: #### 2 37917 #### [facility],[address] [place] [address] 97497 BMP with eGFR Normal [facility] Comment on above: Result Comment: BASI C METABOLIC PANEL Performed By: #### 2 19441 #### [facility],[address] [place] [address] 69428 Calcium [Mass/Vol] 8.7 mg/dL Normal 8.5 - 10.1 [facility] Comment on above: Performed By: #### 2 45982 #### [facility],[address] [place] [address] 93361 Chloride [Moles/Vol] 103 mmol/L Normal 98 - 107 [facility] Comment on above: Performed By: #### 2 18767 #### [facility],[address] [place] [address] 61671 CO2 [Moles/Vol] 26.2 mmol/L Normal 21.0 - 32.0 [facility] Comment on above: Performed By: #### 2 40290 #### [facility],[address] [place] [address] 64476 Creatinine [Mass/Vol] 0.85 mg/dL Normal 0.70 - 1.30 [facility] Comment on above: Performed By: #### 2 02326 #### [facility],[address] [place] [address] 26123 GFR/1.73 sq M.predicted among non-blacks MDRD (S/P/Bld) [Vol rate/Area] mL/min/{1.73_m2} Normal 60 - 999 [facility] Comment on above: Performed By: #### 2 92864 #### [facility],[address] [place] [address] Result Comment: ACCO RDING TO THE NATIONAL KIDNEY DISEASE EDUCATION PROGRAM(NKDE), A NORMAL eGFR IS A VALUE GREATER THAN OR EQUAL TO 60 ML/MIN/1.73 SQ METERS. CHRONIC KIDNEY DISEASE: <60mL/MIN/1.73 SQ METERS KIDNEY FAILURE: <15mL/MIN/1.73 SQ METERS THIS TEST SHOULD ONLY BE USED FOR PATIENTS 18 YEARS OF AGE AND OLDER. Glucose [Mass/Vol] 103 mg/dL Normal 74 - 106 [facility] Comment on above: Performed By: #### 2 00159 #### [facility],[address] [place] [address] Potassium [Moles/Vol] 4.4 mmol/L Normal 3.5 - 5.1 [facility] Comment on above: Performed By: #### 2 04928 #### [facility],[address] [place] [address] Sodium [Moles/Vol] 136 mmol/L Normal 136 - 145 [facility] Comment on above: Performed By: #### 2 08837 #### [facility],[address] [place], [place] [id number] Urea nitrogen [Mass/Vol] 30 mg/dL High 7 - 18 [facility] Comment on above: Performed By: #### 2 08435 #### [facility],[address] [place], [place] [id number] CBC + DIFFon 12-26-2024 Baso # 0.05 x10EE3/UL Normal 0.00 - 0.10 [facility] Comment on above: Performed By: #### 2 15376 #### [facility],[address] [place] [address] 46802 Basophils/100 WBC (Bld) 0.3 % Normal 0.0 - 2.0 [facility] Comment on above: Performed By: #### 2 58408 #### [facility],[address] [place] [address] 53592 CBC + DIFF Normal [facility] Comment on above: Result Comment: CBC- COMPLETE BLOOD COUNT Performed By: #### 2 46976 #### [facility],[address] [place] [address] 93978 EO # 0.10 x10EE3/UL Normal 0.00 - 0.50 [facility] Comment on above: Performed By: #### 2 78816 #### [facility],[address] [place] [address] 81637 Eosinophils/100 WBC (Bld) 0.6 % Normal 0.0 - 7.0 [facility] Comment on above: Performed By: #### 2 35660 #### [facility],[address] [place] [address] 76104 Erythrocyte distribution width (RBC) [Ratio] 13.5 % Normal 12.0 - 15.6 [facility] Comment on above: Performed By: #### 2 00879 #### [facility],[address] [place] [address] 27464 Hematocrit (Bld) [Volume fraction] 44.5 % Normal 40.0 - 52.0 [facility] Comment on above: Performed By: #### 2 29860 #### [facility],[address] [place] [address] 39525 Hemoglobin (Bld) [Mass/Vol] 15.4 g/dL Normal 13.0 - 17.5 [facility] Comment on above: Performed By: #### 2 55199 #### [facility],[address] [place] [address] 40188 Lymph # 2.38 x10EE3/UL Normal 0.80 - 2.80 [facility] Comment on above: Performed By: #### 2 14462 #### [facility],[address] [place] [address] 79463 Lymphocytes/100 WBC (Bld) 12.9 % Low 20.0 - 45.0 [facility] Comment on above: Performed By: #### 2 63317 #### [facility],[address] [place] [address] MANUAL DIFF N/A Normal [facility] Comment on above: Performed By: #### 2 61725 #### [facility],[address] [place] [address] MCH (RBC) [Entitic mass] 29 pg Normal 27 - 33 [facility] Comment on above: Performed By: #### 2 83434 #### [facility],[address] [place] [address] MCHC 35 X10 3 Normal 32 - 36 [facility] Comment on above: Performed By: #### 2 95172 #### [facility],[address] [place] [address] MCV (RBC) [Entitic vol] 85 fL Normal 81 - 98 [facility] Comment on above: Performed By: #### 2 29736 #### [facility],[address] [place] [address] [place] # 0.89 x10EE3/UL Normal 0.20 - 1.00 [facility] Comment on above: Performed By: #### 2 45915 #### [facility],[address] [place] [address] MONOS % 4.8 % Normal 0.0 - 10.0 [facility] Comment on above: Performed By: #### 2 29347 #### [facility],[address] [place] [address] Morphology Epi (Bld) [Interp] N/A Normal [facility] Comment on above: Performed By: #### 2 83669 #### [facility],[address] [place] [address] Neut # 15.04 x10EE3/UL High 1.50 - 7.10 [facility] Comment on above: Performed By: #### 2 67949 #### [facility],[address] [place] [address] 53410 Neutrophils/100 WBC (Bld) 81.5 % High 46.0 - 76.0 [facility] Comment on above: Performed By: #### 2 42690 #### [facility],[address] [place] [address] 32322 PLATELET 412 x10EE3/UL Normal 150 - 450 [facility] Comment on above: Performed By: #### 2 09540 #### [facility],[address] [place] [address] 61932 Platelet mean volume (Bld) [Entitic vol] 7.3 fL Normal 6.4 - 10.5 [facility] Comment on above: Result Comment: AUTO MATED DIFFERENTIAL Performed By: #### 2 90423 #### [address] [address] RBC 5.26 x 10EE6/UL Normal 4.50 - 6.00 [facility] Comment on above: Performed By: #### 2 58951 #### [facility],[address] [place] [address] 51721 WBC 18.5 x 10EE3/UL High 4.5 - 10.8 [facility] Comment on above: Performed By: #### 2 80288 #### [facility],[address] [place] [address] 99184 URIC ACIDon 12-26-2024 Urate [Mass/Vol] 6.5 mg/dL Normal 3.5 - 7.2 [facility] Comment on above: Performed By: #### 2 89214 #### [facility],[address] [place] [address] 02830 URINE CREATININE AND PROTEIN RATIOon 12-26-2024 CREATININE UR 153.45 mg/dl Normal [facility] Comment on above: Performed By: #### 2 39173 #### [facility],[address] [place] [address] 28538 PC RATIO 0.79 mg/dL Normal 0.00 - 10.00 [facility] Comment on above: Performed By: #### 2 87213 #### [facility],[address] [place] [address] 71678 Protein (U) [Mass/Vol] 121.70 mg/dL High 0.00 - 10.00 [facility] Comment on above: Performed By: #### 2 12390 #### [facility],[address] [place] [address] 19508 Absolute lymphocyte countOrd ered By: Edith Gore on 12-25-2024 Lymphocytes Auto (Unsp spec) [#/Vol] 2.46 10*3/uL 0.83-4.51 [facility] Absolute neutrophil countOrd ered By: Edith Gore on 12-25-2024 Neutrophils (Bld) [#/Vol] 14.9 10*3/uL High 2.0-7.7 [facility] Anion gap in Serum or Plasma Ordered By: Edith Gore on 12-25-2024 Anion gap [Moles/Vol] 13 mmol/L 5-15 [facility] Automated lymphocyte count a s percentage of total leukocytesOrdered By: Edith Gore on 12-25-2024 Lymphocytes/100 WBC Auto (Unsp spec) 13.4 % Low 19-41 [facility] BUN/creatinine ratioOrdered By: Edith Gore on 12-25-2024 Urea nitrogen/Creatinine [Mass ratio] 35.5 mg/mg High 10-20 [facility] Basophil percentageOrdered B y: Edith Gore on 12-25-2024 Basophils/100 WBC (Bld) 0.3 % 0-1 [facility] Bilirubin Test strip Ql (U)O rdered By: Edith Gore on 12-25-2024 Bilirubin Ql (U) Negative Negative [facility] Bilirubin, totalOrdered By: Edith Gore on 12-25-2024 Bilirubin [Mass/Vol] 0.20 mg/dL 0.00-1.30 [facility] CBC W/Diff, Automatedon 12-16 Absolute Lymph 2.46 X10 3/uL Normal 0.83-4.51 [facility] Comment on above: Performed By: #### L 501.6710, L500.4050, L100.0100, L501.0900, L101.9900, L400.2010 #### [facility] [address] [place], [address] Absolute Neut 14.9 X10 3/uL High 2.0-7.7 [facility] Comment on above: Performed By: #### L 501.6710, L500.4050, L100.0100, L501.0900, L101.9900, L400.2010 #### [facility] [address] [place], [address] Basophils/100 WBC (Bld) 0.3 % Normal 0-1 [facility] Comment on above: Performed By: #### L 501.6710, L500.4050, L100.0100, L501.0900, L101.9900, L400.2010 #### [facility] [address] [place], [address] Eosinophils/100 WBC (Bld) 0.1 % Normal 0-5 [facility] Comment on above: Performed By: #### L 501.6710, L500.4050, L100.0100, L501.0900, L101.9900, L400.2010 #### [facility] [address] [place], [address] Erythrocyte distribution width (RBC) [Ratio] 13.2 % Normal 11.6-14.6 [facility] Comment on above: Performed By: #### L 501.6710, L500.4050, L100.0100, L501.0900, L101.9900, L400.2010 #### [facility] [address] [place], [address] Hematocrit (Bld) [Volume fraction] 47.5 % Normal 40-54 [facility] Comment on above: Performed By: #### L 501.6710, L500.4050, L100.0100, L501.0900, L101.9900, L400.2010 #### [facility] [address] [place], [address] Hemoglobin (Bld) [Mass/Vol] 15.7 g/dL Normal 13.0-16.5 [facility] Comment on above: Performed By: #### L 501.6710, L500.4050, L100.0100, L501.0900, L101.9900, L400.2010 #### [facility] [address] [place], [address] IG% 0.500 Normal 0.0-0.9 [facility] Comment on above: Result Comment: IG% - Immature Granulocytes (promyelocytes, myelocytes and metamyelocytes) > 1% indicates that a LEFT SHIFT is Present. Performed By: #### L 501.6710, L500.4050, L100.0100, L501.0900, L101.9900, L400.2010 #### [facility] [address] [place], [address] Lymphocytes/100 WBC (Bld) 13.4 % Low 19-41 [facility] Comment on above: Performed By: #### L 501.6710, L500.4050, L100.0100, L501.0900, L101.9900, L400.2010 #### [facility] [address] [place], [address] MCH (RBC) [Entitic mass] 28.0 pg Normal 27.0-32.0 [facility] Comment on above: Performed By: #### L 501.6710, L500.4050, L100.0100, L501.0900, L101.9900, L400.2010 #### [facility] [address] [place], [address] MCHC (RBC) [Mass/Vol] 33.1 g/dL Normal 32-36 [facility] Comment on above: Performed By: #### L 501.6710, L500.4050, L100.0100, L501.0900, L101.9900, L400.2010 #### [facility] [address] [place], [address] MCV (RBC) [Entitic vol] 84.8 fL Normal 80-94 [facility] Comment on above: Performed By: #### L 501.6710, L500.4050, L100.0100, L501.0900, L101.9900, L400.2010 #### [facility] [address] [place], [address] Monocytes/100 WBC (Bld) 4.2 % Normal 0-10 [facility] Comment on above: Performed By: #### L 501.6710, L500.4050, L100.0100, L501.0900, L101.9900, L400.2010 #### [facility] [address] [place], [address] Neutrophils/100 WBC (Bld) 81.5 % High 47-70 [facility] Comment on above: Performed By: #### L 501.6710, L500.4050, L100.0100, L501.0900, L101.9900, L400.2010 #### [facility] [address] [place], [address] Nucleated RBC (Bld) [#/Vol] 0 10*3/uL Normal 0-5 [facility] Comment on above: Performed By: #### L 501.6710, L500.4050, L100.0100, L501.0900, L101.9900, L400.2010 #### [facility] [address] [place], [address] Platelet mean volume (Bld) [Entitic vol] 9.3 fL Normal 6.2-12.0 [facility] Comment on above: Performed By: #### L 501.6710, L500.4050, L100.0100, L501.0900, L101.9900, L400.2010 #### [facility] [address] [place], [address] Platelets (Bld) [#/Vol] 394 10*3/uL Normal 150-450 [facility] Comment on above: Performed By: #### L 501.6710, L500.4050, L100.0100, L501.0900, L101.9900, L400.2010 #### [facility] [address] [place], [address] RBC (Bld) [#/Vol] 5.60 10*6/uL Normal 4.6-6.2 [facility] Comment on above: Performed By: #### L 501.6710, L500.4050, L100.0100, L501.0900, L101.9900, L400.2010 #### [facility] [address] [place], [address] RDW SD 40.8 fl Normal 35.1-43.9 [facility] Comment on above: Performed By: #### L 501.6710, L500.4050, L100.0100, L501.0900, L101.9900, L400.2010 #### [facility] [address] [place], [address] WBC (Bld) [#/Vol] 18.3 10*3/uL High 4.4-11.0 [facility] Comment on above: Performed By: #### L 501.6710, L500.4050, L100.0100, L501.0900, L101.9900, L400.2010 #### [facility] [address] [place], [address] CRPon 12-25-2024 C-REACTIVE PROT 8.98 mg/L High 0.0-3.0 [facility] Comment on above: Performed By: #### L 501.0900, L509.1000, L500.2500, L506.1001, L100.0100, L501.1400 #### [facility] [address] [place], [address] CRP [Mass/Vol]Ordered By: Manuel Gore on 12-25-2024 C-Reactive Protein Extended Range 8.98 mg/L High 0.0-3.0 [facility] Carbon dioxide, total [Moles /volume] in Central venous bloodOrdered By: Edith Gore on 12-25-2024 CO2 [Moles/Vol] 21.1 mmol/L 21.0-32.0 [facility] Chloride assayOrdered By: Manuel Gore on 12-25-2024 Chloride [Moles/Vol] 102 mmol/L 98-108 [facility] Comprehensive Metabolic Prof ilon 12-25-2024 Albumin [Mass/Vol] 4.0 g/dL Normal 3.5-5.0 [facility] Comment on above: Performed By: #### L 501.6710, L500.4050, L100.0100, L501.0900, L101.9900, L400.2010 #### [facility] [address] [place], [address] Albumin/Globulin [Mass ratio] 1.1 {ratio} Normal 0.9-2.4 [facility] Comment on above: Performed By: #### L 501.6710, L500.4050, L100.0100, L501.0900, L101.9900, L400.2010 #### [facility] [address] [place], [address] ALK PHOS 82 U/L Normal 40-129 [facility] Comment on above: Performed By: #### L 501.6710, L500.4050, L100.0100, L501.0900, L101.9900, L400.2010 #### [facility] [address] [place], [address] ALT [Catalytic activity/Vol] 46 U/L Normal <=46 [facility] Comment on above: Performed By: #### L 501.6710, L500.4050, L100.0100, L501.0900, L101.9900, L400.2010 #### [facility] [address] [place], [address] AST [Catalytic activity/Vol] 24 U/L Normal <=37 [facility] Comment on above: Performed By: #### L 501.6710, L500.4050, L100.0100, L501.0900, L101.9900, L400.2010 #### [facility] [address] [place], [address] Bilirubin [Mass/Vol] 0.20 mg/dL Normal 0.00-1.30 [facility] Comment on above: Performed By: #### L 501.6710, L500.4050, L100.0100, L501.0900, L101.9900, L400.2010 #### [facility] [address] [place], [address] BUN/CRE 35.5 RATIO High 10-20 [facility] Comment on above: Performed By: #### L 501.6710, L500.4050, L100.0100, L501.0900, L101.9900, L400.2010 #### [facility] [address] [place], [address] Calcium [Mass/Vol] 9.8 mg/dL Normal 7.6-11.0 [facility] Comment on above: Performed By: #### L 501.6710, L500.4050, L100.0100, L501.0900, L101.9900, L400.2010 #### [facility] [address] [place], [address] Chloride [Moles/Vol] 102 mmol/L Normal 98-108 [facility] Comment on above: Performed By: #### L 501.6710, L500.4050, L100.0100, L501.0900, L101.9900, L400.2010 #### [facility] [address] [place], [address] CO2 [Moles/Vol] 21.1 mmol/L Normal 21.0-32.0 [facility] Comment on above: Performed By: #### L 501.6710, L500.4050, L100.0100, L501.0900, L101.9900, L400.2010 #### [facility] [address] [place], [address] Creatinine [Mass/Vol] 0.80 mg/dL Normal 0.70-1.20 [facility] Comment on above: Performed By: #### L 501.6710, L500.4050, L100.0100, L501.0900, L101.9900, L400.2010 #### [facility] [address] [place], [address] GAP 13 Normal 5-15 [facility] Comment on above: Performed By: #### L 501.6710, L500.4050, L100.0100, L501.0900, L101.9900, L400.2010 #### [facility] [address] [place], [address] GFR/1.73 sq M.predicted among non-blacks MDRD (S/P/Bld) [Vol rate/Area] 116 mL/min/{1.73_m2} Normal >60 [facility] Comment on above: Result Comment: mL/m in/1.73m2 CKD-EPI Creatinine Equation (2020) Performed By: #### L 501.6710, L500.4050, L100.0100, L501.0900, L101.9900, L400.2010 #### [facility] [address] [place], [address] Globulin (S) [Mass/Vol] 3.6 g/dL Normal 2.2-4.2 [facility] Comment on above: Performed By: #### L 501.6710, L500.4050, L100.0100, L501.0900, L101.9900, L400.2010 #### [facility] [address] [place], [address] Glucose [Mass/Vol] 105 mg/dL High 70-99 [facility] Comment on above: Performed By: #### L 501.6710, L500.4050, L100.0100, L501.0900, L101.9900, L400.2010 #### [facility] [address] [place], [address] Potassium [Moles/Vol] 4.5 mmol/L Normal 3.3-5.1 [facility] Comment on above: Performed By: #### L 501.6710, L500.4050, L100.0100, L501.0900, L101.9900, L400.2010 #### [facility] [address] [place], [address] Sodium [Moles/Vol] 136 mmol/L Normal 133-145 [facility] Comment on above: Performed By: #### L 501.6710, L500.4050, L100.0100, L501.0900, L101.9900, L400.2010 #### [facility] [address] [place], [address] T PROT 7.6 g/dL Normal 5.9-8.4 [facility] Comment on above: Performed By: #### L 501.6710, L500.4050, L100.0100, L501.0900, L101.9900, L400.2010 #### [facility] [address] [place], [address] Urea nitrogen [Mass/Vol] 28 mg/dL High 4-19 [facility] Comment on above: Performed By: #### L 501.6710, L500.4050, L100.0100, L501.0900, L101.9900, L400.2010 #### [facility] [address] [place], [address] Creatinine Unsp time (U) [Ma ss/Vol]Ordered By: Edith Gore on 12-25-2024 Creatinine (U) [Mass/Vol] 102.00 mg/dL 39-259 [facility] Eosinophil percentageOrdered By: Edith Gore on 12-25-2024 Eosinophils/100 WBC (Bld) 0.1 % 0-5 [facility] Erythrocyte Sed Rateon 12-25 SED RATE 38 mm/hr High 0-20 [facility] Comment on above: Performed By: #### L 501.6710, L500.4050, L100.0100, L501.0900, L101.9900, L400.2010 #### [facility] [address] [place], [address] Erythrocyte distribution wid th ratioOrdered By: Edith Gore on 12-25-2024 Erythrocyte distribution width (RBC) [Ratio] 13.2 % 11.6-14.6 [facility] Erythrocyte distribution wid th standard deviationOrdered By: Edith Gore on 12-25-2024 Erythrocyte distribution width (RBC) [Entitic vol] 40.8 fL 35.1-43.9 [facility] Erythrocyte distribution width (RBC) [Ratio] 40.8 fl 35.1-43.9 [facility] Erythrocyte sedimentation ra teOrdered By: Edith Gore on 12-25-2024 ESR (Bld) [Velocity] 38 mm/h High 0-20 [facility] GFR/1.73 sq M.predicted beth g non-blacks MDRD (S/P/Bld) [Vol rate/Area]Ordered By: Edith Gore on 12-25-2024 Estimated GFR (MDRD) Non-Af Amer 116 >60 [facility] Comment on above: mL/min/1.73m2 CKD-EP I Creatinine Equation (2020) Glomerular filtration rate ( GFR) estimation/1.73 sq m using serum, plasma, or whole bOrdered By: Edith Gore on 12-25-2024 GFR/1.73 sq M.predicted among non-blacks MDRD (S/P/Bld) [Vol rate/Area] 116 mL/min/{1.73_m2} >60 [facility] Comment on above: mL/min/1.73m2 CKD-EP I Creatinine Equation (2020) Glucose Ql (U)Ordered By: Manuel Gore on 12-25-2024 Urine Glucose (UA) Normal mg/dl Normal [facility] Hematocrit Auto (Bld) [Volum e fraction]Ordered By: Edith Gore on 12-25-2024 Hematocrit (Bld) [Volume fraction] 47.5 % 40-54 [facility] Hemoglobin measurementOrdere d By: Edith Gore on 12-25-2024 Hemoglobin (Bld) [Mass/Vol] 15.7 g/dL 13.0-16.5 [facility] Immature granulocytes/100 WB C Auto (Bld)Ordered By: Edith Gore on 12-25-2024 Immature granulocytes/100 WBC (Bld) 0.500 % 0.0-0.9 [facility] Comment on above: IG% - Immature Granu locytes (promyelocytes, myelocytes and metamyelocytes) > 1% indicates that a LEFT SHIFT is Present. Ketones Test strip Ql (U)Ord ered By: Edith Gore on 12-25-2024 Ketones Ql (U) Negative Negative [facility] Laboratory - Chemistry and C hemistry - challengeOrdered By: Edith Gore on 12-25-2024 AST [Catalytic activity/Vol] 24 U/L <38 [facility] Lymphocytes Auto (Unsp spec) [#/Vol]Ordered By: Edith Gore on 12-25-2024 Lymphocytes (Bld) [#/Vol] 2.46 10*3/uL 0.83-4.51 [facility] Lymphocytes/100 WBC Auto (Un sp spec)Ordered By: Edith Gore on 12-25-2024 Lymphocytes/100 WBC (Bld) 13.4 % Low 19-41 [facility] MCV (mean corpuscular volume ) determinationOrdered By: Edith Gore on 12-25-2024 MCV (RBC) [Entitic vol] 84.8 fL 80-94 [facility] Mean corpuscular hemoglobin (MCH) determinationOrdered By: Edith Gore on 12-25-2024 MCH (RBC) [Entitic mass] 28.0 pg 27.0-32.0 [facility] Mean corpuscular hemoglobin concentration (MCHC) determinationOrdered By: Edith Gore on 12-25-2024 MCHC (RBC) [Mass/Vol] 33.1 g/dL 32-36 [facility] Mean platelet volume determi nationOrdered By: Edith Gore on 12-25-2024 Platelet mean volume (Bld) [Entitic vol] 9.3 fL 6.2-12.0 [facility] Monocyte percentageOrdered B y: Edith Gore on 12-25-2024 Monocytes/100 WBC (Bld) 4.2 % 0-10 [facility] Neutrophil percentageOrdered By: Edith Gore on 12-25-2024 Neutrophils/100 WBC (Bld) 81.5 % High 47-70 [facility] Nitrite Test strip Ql (U)Ord ered By: Edith Gore on 12-25-2024 Nitrite Ql (U) Negative Negative [facility] Nucleated red blood cell per centageOrdered By: Edith Gore on 12-25-2024 Nucleated RBC/100 WBC (Bld) [Ratio] 0 % 0-5 [facility] Platelet countOrdered By: Manuel Gore on 12-25-2024 Platelets (Bld) [#/Vol] 394 10*3/uL 150-450 [facility] Potassium (Unsp spec) [Mass/ Vol]Ordered By: Edith Gore on 12-25-2024 Potassium [Moles/Vol] 4.5 mmol/L 3.3-5.1 [facility] Potassium measurement (mass/ volume)Ordered By: Edith Gore on 12-25-2024 Potassium (Unsp spec) [Mass/Vol] 4.5 mmol/L 3.3-5.1 [facility] Protein Test strip Ql (U)Ord ered By: Edith Gore on 12-25-2024 Protein Ql (U) 100 mg/dl High Negative [facility] Protein+Creatinine Ratio,Uri neon 12-25-2024 PROT:CRE RATIO 652 mg/g CRE High 0-200 [facility] Comment on above: Performed By: #### L 501.0900, L509.1000, L500.2500, L506.1001, L100.0100, L501.1400 #### [facility] [address] [place], [address] Protein (U) [Mass/Vol] 66.5 mg/dL High 0.0-12.0 [facility] Comment on above: Performed By: #### L 501.0900, L509.1000, L500.2500, L506.1001, L100.0100, L501.1400 #### [facility] [address] [place], [address] UR CREAT 102.00 mg/dL Normal 39-259 [facility] Comment on above: Performed By: #### L 501.0900, L509.1000, L500.2500, L506.1001, L100.0100, L501.1400 #### [facility] [address] [place], [address] Protein/Creatinine (U) [Mass ratio]Ordered By: Edith Gore on 12-25-2024 Urine Protein/Creatinine Ratio 652 mg/g CRE High 0-200 [facility] RBC Auto (Bld) [#/Vol]Ordere d By: Edith Gore on 12-25-2024 RBC (Bld) [#/Vol] 5.60 10*6/uL 4.6-6.2 [facility] Random urine creatinine cristian urement (mass/volume)Ordered By: Edith Gore on 12-25-2024 Creatinine Unsp time (U) [Mass/Vol] 102.00 mg/dL 39-259 [facility] Serum creatinine measurement (mass/volume)Ordered By: Edith Gore on 12-25-2024 Creatinine [Mass/Vol] 0.80 mg/dL 0.70-1.20 [facility] Serum globulin measurementOr dered By: Edith Gore on 12-25-2024 Globulin (S) [Mass/Vol] 3.6 g/dL 2.2-4.2 [facility] Serum glucose measurement (m ass/volume)Ordered By: Edith Gore on 12-25-2024 Glucose [Mass/Vol] 105 mg/dL High 70-99 [facility] Serum or plasma C reactive p rotein measurement (mass/volume)Ordered By: Edtih Gore on 12-25-2024 CRP [Mass/Vol] 8.98 mg/L High 0.0-3.0 [facility] Serum or plasma alanine johnson otransferase (ALT) measurementOrdered By: Edith Gore on 12-25-2024 ALT [Catalytic activity/Vol] 46 U/L <47 [facility] Serum or plasma albumin cristian urement (mass/volume)Ordered By: Edith Gore on 12-25-2024 Albumin [Mass/Vol] 4.0 g/dL 3.5-5.0 [facility] Serum or plasma albumin/glob ulin mass ratioOrdered By: Edith Gore on 12-25-2024 Albumin/Globulin [Mass ratio] 1.1 {ratio} 0.9-2.4 [facility] Serum or plasma alkaline luis eduardo sphatase measurementOrdered By: Edith Gore on 12-25-2024 ALP [Catalytic activity/Vol] 82 U/L 40-129 [facility] Serum or plasma calcium cristian urement (mass/volume)Ordered By: Edith Gore on 12-25-2024 Calcium [Mass/Vol] 9.8 mg/dL 7.6-11.0 [facility] Serum or plasma urea nitroge n measurement (mass/volume)Ordered By: Edith Gore on 12-25-2024 Urea nitrogen [Mass/Vol] 28 mg/dL High 4-19 [facility] Sodium levelOrdered By: Airam Gore on 12-25-2024 Sodium [Moles/Vol] 136 mmol/L 133-145 [facility] Total proteinOrdered By: Demi Gore on 12-25-2024 Protein [Mass/Vol] 7.6 g/dL 5.9-8.4 [facility] Urinalysis, Routine (Dipstic k)on 12-25-2024 BILIRUBIN URINE Negative Normal Negative [facility] Comment on above: Order Comment: Urine , Random Performed By: #### L 501.0900, L509.1000, L500.2500, L506.1001, L100.0100, L501.1400 #### [facility] [address] [place], [address] Clarity (U) Clear Normal Clear [facility] Comment on above: Order Comment: Urine , Random Performed By: #### L 501.0900, L509.1000, L500.2500, L506.1001, L100.0100, L501.1400 #### [facility] [address] [place], [address] Color (U) Yellow Normal Yellow [facility] Comment on above: Order Comment: Urine , Random Performed By: #### L 501.0900, L509.1000, L500.2500, L506.1001, L100.0100, L501.1400 #### [facility] [address] [place], [address] GLUCOSE, UR Normal Normal Normal [facility] Comment on above: Order Comment: Urine , Random Performed By: #### L 501.0900, L509.1000, L500.2500, L506.1001, L100.0100, L501.1400 #### [facility] [address] [place], [address] KETONE UR Negative Normal Negative [facility] Comment on above: Order Comment: Urine , Random Performed By: #### L 501.0900, L509.1000, L500.2500, L506.1001, L100.0100, L501.1400 #### [facility] [address] [place], [address] LEUK ESTERASE Negative Normal Negative [facility] Comment on above: Order Comment: Urine , Random Performed By: #### L 501.0900, L509.1000, L500.2500, L506.1001, L100.0100, L501.1400 #### [facility] [address] [place], [address] Nitrite Ql (U) Negative Normal Negative [facility] Comment on above: Order Comment: Urine , Random Performed By: #### L 501.0900, L509.1000, L500.2500, L506.1001, L100.0100, L501.1400 #### [facility] [address] [place], [address] OCCULT BLOOD-UR 250 /ul Abnormal Negative [facility] Comment on above: Order Comment: Urine , Random Performed By: #### L 501.0900, L509.1000, L500.2500, L506.1001, L100.0100, L501.1400 #### [facility] [address] [place], [address] pH UR 6.0 Normal 5.0 - 8.0 [facility] Comment on above: Order Comment: Urine , Random Performed By: #### L 501.0900, L509.1000, L500.2500, L506.1001, L100.0100, L501.1400 #### [facility] [address] [place], [address] PROT DIPSTX 100 mg/dl Abnormal Negative [facility] Comment on above: Order Comment: Urine , Random Performed By: #### L 501.0900, L509.1000, L500.2500, L506.1001, L100.0100, L501.1400 #### [facility] [address] [place], [place], [id number] SP.GR. DIPSTX 1.020 Normal 1.002-1.030 [facility] Comment on above: Order Comment: Urine , Random Performed By: #### L 501.0900, L509.1000, L500.2500, L506.1001, L100.0100, L501.1400 #### [facility] [address] [place], [address] UROBILI Normal Normal Normal [facility] Comment on above: Order Comment: Urine , Random Performed By: #### L 501.0900, L509.1000, L500.2500, L506.1001, L100.0100, L501.1400 #### [facility] [address] [place], [place], [id number] Urine blood detectionOrdered By: Edith Gore on 12-25-2024 Urine Occult Blood 250 /ul High Negative [facility] Urine clarityOrdered By: Demi Gore on 12-25-2024 Clarity (U) Clear Clear [facility] Urine color determinationOrd ered By: Edith Gore on 12-25-2024 Color (U) Yellow Yellow [facility] Urine glucose detectionOrder ed By: Edith Gore on 12-25-2024 Glucose Ql (U) Normal mg/dl Normal [facility] Urine leukocyte esterase det ection by dipstickOrdered By: Edith Gore on 12-25-2024 Leukocyte esterase Test strip Ql (U) Negative Negative [facility] Urine pHOrdered By: Edith garcia on 12-25-2024 pH (U) 6.0 [pH] 5.0 - 8.0 [facility] Urine protein measurement (m ass/volume)Ordered By: Edith Gore on 12-25-2024 Protein (U) [Mass/Vol] 66.5 mg/dL High 0.0-12.0 [facility] Urine protein/creatinine mas s ratioOrdered By: Edith Gore on 12-25-2024 Protein/Creatinine (U) [Mass ratio] 652 mg/g CRE High 0-200 [facility] Urine specific gravity measu rementOrdered By: Edith Gore on 12-25-2024 Specific gravity (U) [Rel density] 1.020 1.002-1.030 [facility] Urine urobilinogen measureme ntOrdered By: Edith Gore on 12-25-2024 Urobilinogen Ql (U) Normal mg/dl Normal [facility] Urobilinogen Ql (U)Ordered B y: Edith Gore on 12-25-2024 Urine Urobilinogen Normal mg/dl Normal [facility] White blood cell (WBC) count Ordered By: Edith Gore on 12-25-2024 WBC (Bld) [#/Vol] 18.3 10*3/uL High 4.4-11.0 [facility] CNOVon 10-26-2024 CNOV Office Visit ([facility] ) -- MAGGIKRYSTEN OMER V ([id number]) 1985 M Date Time Provider Department 10/26/24 10:40 AM HUY MARQUEZ [facility] During your visit today, we recorded the following information about you: Pulse Blood pressure Weight Height 72/minute 140/90 133.2 kg 1.727 m Huy Marquez MD 10/26/2024 10:54 AM Signed Huy Marquez MD [address] [place] [address] Dept: [phone] Dept Visit Date: October 26, 2024 Name: Krysten Crook Date of : 1985 MRN/E #: [id number] Subjective Chief Complaint: Follow Up Subjective Krysten [...] tablet Take 1 (more content not included)... [facility] [place] 10-25-2024 [facility] [place] KRYSTEN CROOK V ([id number]) 1985 M Date Time Provider Department 10/25/24 HUY MARQUEZ During your visit today, we [...] Encounter Status:Closed by KRYSTEN RICHARDSON on 10/25/24 [facility] 10-20-2024 [facility] Telephone ([facility]) -- MAGGIKRYSTEN MONTOYA V ([id number]) 1985 M Date Time Provider Department 10/20/24 HUY MARQUEZ During your visit today, we [...] Encounter Status:Closed by RON PARISH on 10/20/24 [facility] Miscellaneous Lab Procedureo n 09-07-2024 [facility] LAB TEST Normal [facility] Comment on above: Order Comment: 52 0147 SERUM RF Result Comment: TEST RESULTS LIMITS Anti-C1Q Ab, IgG (RDL) <20 Units <20 Comments: This test was developed and its performance characteristics determined by [facility]. It has not been cleared or approved by the Food and Drug Administration. TESTING PERFORMED AT [employer]. ORIGINAL REPORT ON FILE IN LAB CONTAINS ADDITIONAL TEST SITE INFORMATION. AMENDED REPORT 09/07/242207 [facility] LAB TEST previously reported as: TEST RESULTS LIMITS Anti-C1Q Ab, IgG (RDL) <20 Units <20 [facility]. ORIGINAL REPORT ON FILE IN LAB CONTAINS ADDITIONAL TEST SITE INFORMATION. Performed By: #### L 501.0900, L509.1000, L500.2500, L506.1001, L100.0100, L501.1400 #### [facility] [address] [place], [address] Cryoglobulins, Serumon 09-04 CRYOGLOBULIN,S Comment Normal None detected [facility] Comment on above: Order Comment: Test( s) 115015-Gtbvmjcwxonc, Ql, Serum, Rflxwas developed and its performance characteristicsdetermined by [facility]. It has not been cleared or approvedby the Food and Drug Administration. Result Comment: None Detected at 72 hours Performed at: [address] [id number] [place] Backer: Enrrique Burnett PhD, Phone: [phone] Performed By: #### L 501.0900, L509.1000, L500.2500, L506.1001, L100.0100, L501.1400 #### [facility] [address] [place], [address] CBC W/Diff, Automatedon 11-10 19-2023 Absolute Lymph 3.17 X10 3/uL Normal 0.83-4.51 [facility] Comment on above: Performed By: #### L 501.0900, L509.1000, L500.2500, L506.1001, L100.0100, L501.1400 #### [facility] [address] [place], [address] Absolute Neut 6.1 X10 3/uL Normal 2.0-7.7 [facility] Comment on above: Performed By: #### L 501.0900, L509.1000, L500.2500, L506.1001, L100.0100, L501.1400 #### [facility] [address] [place], [address] Basophils/100 WBC (Bld) 0.8 % Normal 0-1 [facility] Comment on above: Performed By: #### L 501.0900, L509.1000, L500.2500, L506.1001, L100.0100, L501.1400 #### [facility] [address] [place], [address] Eosinophils/100 WBC (Bld) 2.2 % Normal 0-5 [facility] Comment on above: Performed By: #### L 501.0900, L509.1000, L500.2500, L506.1001, L100.0100, L501.1400 #### [facility] [address] [place], [address] Erythrocyte distribution width (RBC) [Ratio] 12.5 % Normal 11.6-14.6 [facility] Comment on above: Performed By: #### L 501.0900, L509.1000, L500.2500, L506.1001, L100.0100, L501.1400 #### [facility] [address] [place], [address] Hematocrit (Bld) [Volume fraction] 46.2 % Normal 40-54 [facility] Comment on above: Performed By: #### L 501.0900, L509.1000, L500.2500, L506.1001, L100.0100, L501.1400 #### [facility] [address] [place], [address] Hemoglobin (Bld) [Mass/Vol] 15.0 g/dL Normal 13.0-16.5 [facility] Comment on above: Performed By: #### L 501.0900, L509.1000, L500.2500, L506.1001, L100.0100, L501.1400 #### [facility] [address] [place], [address] IG% 0.400 Normal 0.0-0.9 [facility] Comment on above: Result Comment: IG% - Immature Granulocytes (promyelocytes, myelocytes and metamyelocytes) > 1% indicates that a LEFT SHIFT is Present. Performed By: #### L 501.0900, L509.1000, L500.2500, L506.1001, L100.0100, L501.1400 #### [facility] [address] [place], [address] Lymphocytes/100 WBC (Bld) 31.1 % Normal 19-41 [facility] Comment on above: Performed By: #### L 501.0900, L509.1000, L500.2500, L506.1001, L100.0100, L501.1400 #### [facility] [address] [place], [address] MCH (RBC) [Entitic mass] 28.5 pg Normal 27.0-32.0 [facility] Comment on above: Performed By: #### L 501.0900, L509.1000, L500.2500, L506.1001, L100.0100, L501.1400 #### [facility] [address] [place], [address] MCHC (RBC) [Mass/Vol] 32.5 g/dL Normal 32-36 [facility] Comment on above: Performed By: #### L 501.0900, L509.1000, L500.2500, L506.1001, L100.0100, L501.1400 #### [facility] [address] [place], [address] MCV (RBC) [Entitic vol] 87.8 fL Normal 80-94 [facility] Comment on above: Performed By: #### L 501.0900, L509.1000, L500.2500, L506.1001, L100.0100, L501.1400 #### [facility] [address] [place], [address] Monocytes/100 WBC (Bld) 5.9 % Normal 0-10 [facility] Comment on above: Performed By: #### L 501.0900, L509.1000, L500.2500, L506.1001, L100.0100, L501.1400 #### [facility] [address] [place], [address] Neutrophils/100 WBC (Bld) 59.6 % Normal 47-70 [facility] Comment on above: Performed By: #### L 501.0900, L509.1000, L500.2500, L506.1001, L100.0100, L501.1400 #### [facility] [address] [place], [address] Nucleated RBC (Bld) [#/Vol] 0 10*3/uL Normal 0-5 [facility] Comment on above: Performed By: #### L 501.0900, L509.1000, L500.2500, L506.1001, L100.0100, L501.1400 #### [facility] [address] [place], [address] Platelet mean volume (Bld) [Entitic vol] 9.3 fL Normal 6.2-12.0 [facility] Comment on above: Performed By: #### L 501.0900, L509.1000, L500.2500, L506.1001, L100.0100, L501.1400 #### [facility] [address] [place], [address] Platelets (Bld) [#/Vol] 351 10*3/uL Normal 150-450 [facility] Comment on above: Performed By: #### L 501.0900, L509.1000, L500.2500, L506.1001, L100.0100, L501.1400 #### [facility] [address] [place], [address] RBC (Bld) [#/Vol] 5.26 10*6/uL Normal 4.6-6.2 [facility] Comment on above: Performed By: #### L 501.0900, L509.1000, L500.2500, L506.1001, L100.0100, L501.1400 #### [facility] [address] [place], [address] RDW SD 40.5 fl Normal 35.1-43.9 [facility] Comment on above: Performed By: #### L 501.0900, L509.1000, L500.2500, L506.1001, L100.0100, L501.1400 #### [facility] [address] [place], [address] WBC (Bld) [#/Vol] 10.2 10*3/uL Normal 4.4-11.0 [facility] Comment on above: Performed By: #### L 501.0900, L509.1000, L500.2500, L506.1001, L100.0100, L501.1400 #### [facility] [address] [place], [address] CRPon 08-29-2024 C-REACTIVE PROT 17.30 mg/L High 0.0-3.0 [facility] Comment on above: Result Comment: C-Re active Protein (CRP) provides useful information for the diagnosis, therapy and monitoring of inflammatory processes and associated diseases. For the evaluation of Relative Risk for Cardiovascular Disease, a High Sensitivity CRP (HSCRP) should be ordered. Performed By: #### L 501.0900, L509.1000, L500.2500, L506.1001, L100.0100, L501.1400 #### [facility] [address] [place], [address] Comprehensive Metabolic Prof ilon 08-29-2024 Albumin [Mass/Vol] 3.1 g/dL Low 3.2-5.0 [facility] Comment on above: Performed By: #### L 501.0900, L509.1000, L500.2500, L506.1001, L100.0100, L501.1400 #### [facility] [address] [place], [address] Albumin/Globulin [Mass ratio] 0.8 {ratio} Low 0.9-2.4 [facility] Comment on above: Performed By: #### L 501.0900, L509.1000, L500.2500, L506.1001, L100.0100, L501.1400 #### [facility] [address] [place], [address] ALK P 105 U/L Normal 45-117 [facility] Comment on above: Performed By: #### L 501.0900, L509.1000, L500.2500, L506.1001, L100.0100, L501.1400 #### [facility] [address] [place], [address] ALT [Catalytic activity/Vol] 101 U/L High 16-61 [facility] Comment on above: Performed By: #### L 501.0900, L509.1000, L500.2500, L506.1001, L100.0100, L501.1400 #### [facility] [address] [place], [address] AST [Catalytic activity/Vol] 40 U/L High 15-37 [facility] Comment on above: Performed By: #### L 501.0900, L509.1000, L500.2500, L506.1001, L100.0100, L501.1400 #### [facility] [address] [place], [address] Bilirubin [Mass/Vol] 0.40 mg/dL Normal 0.20-1.00 [facility] Comment on above: Result Comment: For patients on eltrombopag therapy, use of Dimension [place] TBIL is not recommended. Performed By: #### L 501.0900, L509.1000, L500.2500, L506.1001, L100.0100, L501.1400 #### [facility] [address] [place], [address] BUN/CRE 22.7 RATIO High 10-20 [facility] Comment on above: Performed By: #### L 501.0900, L509.1000, L500.2500, L506.1001, L100.0100, L501.1400 #### [facility] [address] [place], [address] CA,Total 9.2 mg/dL Normal 8.5-10.1 [facility] Comment on above: Performed By: #### L 501.0900, L509.1000, L500.2500, L506.1001, L100.0100, L501.1400 #### [facility] [address] [place], [address] Chloride [Moles/Vol] 104 mmol/L Normal 98-107 [facility] Comment on above: Performed By: #### L 501.0900, L509.1000, L500.2500, L506.1001, L100.0100, L501.1400 #### [facility] [address] [place], [address] CO2 [Moles/Vol] 24.0 mmol/L Normal 21.0-32.0 [facility] Comment on above: Performed By: #### L 501.0900, L509.1000, L500.2500, L506.1001, L100.0100, L501.1400 #### [facility] [address] [place], [address] Creatinine [Mass/Vol] 0.88 mg/dL Normal 0.70-1.30 [facility] Comment on above: Result Comment: The validity of the calculated GFR GFRAA in patients over 70 years has not been determined. Clinical correlation is essential. Performed By: #### L 501.0900, L509.1000, L500.2500, L506.1001, L100.0100, L501.1400 #### [facility] [address] [place], [address] EST GFR - AA 124 mL/min Normal >60 [facility] Comment on above: Result Comment: Afri can [place] GFR Calc Performed By: #### L 501.0900, L509.1000, L500.2500, L506.1001, L100.0100, L501.1400 #### [facility] [address] [place], [address] GAP 8 Normal 5-15 [facility] Comment on above: Performed By: #### L 501.0900, L509.1000, L500.2500, L506.1001, L100.0100, L501.1400 #### [facility] [address] [place], [address] GFR/1.73 sq M.predicted among non-blacks MDRD (S/P/Bld) [Vol rate/Area] 103 mL/min/{1.73_m2} Normal >60 [facility] Comment on above: Result Comment: Non- GFR Calc Performed By: #### L 501.0900, L509.1000, L500.2500, L506.1001, L100.0100, L501.1400 #### [facility] [address] [place], [address] Globulin (S) [Mass/Vol] 4.1 g/dL Normal 2.2-4.2 [facility] Comment on above: Performed By: #### L 501.0900, L509.1000, L500.2500, L506.1001, L100.0100, L501.1400 #### [facility] [address] [place], [address] Glucose [Mass/Vol] 103 mg/dL Normal 74-106 [facility] Comment on above: Result Comment: Fast ing Glucose result from 100 to 125 mg/dL suggests IMPAIRED HOMEOSTASIS per A.D.A. criteria. Performed By: #### L 501.0900, L509.1000, L500.2500, L506.1001, L100.0100, L501.1400 #### [facility] [address] [place], [address] Potassium [Moles/Vol] 3.8 mmol/L Normal 3.5-5.1 [facility] Comment on above: Performed By: #### L 501.0900, L509.1000, L500.2500, L506.1001, L100.0100, L501.1400 #### [facility] [address] [place], [address] Sodium [Moles/Vol] 136 mmol/L Normal 136-145 [facility] Comment on above: Performed By: #### L 501.0900, L509.1000, L500.2500, L506.1001, L100.0100, L501.1400 #### [facility] [address] [place], [address] T PROT 7.2 g/dL Normal 6.4-8.2 [facility] Comment on above: Performed By: #### L 501.0900, L509.1000, L500.2500, L506.1001, L100.0100, L501.1400 #### [facility] [address] [place], [address] Urea nitrogen [Mass/Vol] 20 mg/dL High 7-18 [facility] Comment on above: Performed By: #### L 501.0900, L509.1000, L500.2500, L506.1001, L100.0100, L501.1400 #### [facility] [address] [place], [address] EXAGENon 08-29-2024 EXAGEN MAILED SPECIMEN Normal [facility] Comment on above: Performed By: #### L 501.0900, L509.1000, L500.2500, L506.1001, L100.0100, L501.1400 #### [facility] [address] [place], [address] Erythrocyte Sed Rateon 08-29 SED RATE 36 mm/hr High 0-20 [facility] Comment on above: Performed By: #### L 501.0900, L509.1000, L500.2500, L506.1001, L100.0100, L501.1400 #### [facility] [address] [place], [address] Hepatitis B Surface Antibody on 08-29-2024 HEP B Surf Ab Reactive Normal [facility] Comment on above: Result Comment: Non Reactive: Inconsistent with immunity less than <10 mIU/mL Reactive: Consistent with immunity greater than or equal to 10 mIU/mL Performed By: #### L 501.0900, L509.1000, L500.2500, L506.1001, L100.0100, L501.1400 #### [facility] [address] [place], [address] Hepatitis B Surface Antigeno n 08-29-2024 HEP B Surf Ag Non-Reactive Normal Nonreactive [facility] Comment on above: Performed By: #### L 501.0900, L509.1000, L500.2500, L506.1001, L100.0100, L501.1400 #### [facility] [address] [place], [address] Hepatitis C Antibodyon 08-29 Hepatitis C AB Non-Reactive Normal Nonreactive [facility] Comment on above: Result Comment: Non Reactive: < 0.8 Equivocal: >/= 0.8 to < 1.0 Reactive: >/= 1.0 The CDC requires that a reactive/equivocal HCV antibody result be sent out for confirmation. HCV Quant by PCR testing. Performed By: #### L 501.0900, L509.1000, L500.2500, L506.1001, L100.0100, L501.1400 #### [facility] [address] [place], [address] Protein+Creatinine Ratio,Uri neon 08-29-2024 PROT:CRE RATIO 912 mg/g CRE High 0-200 [facility] Comment on above: Performed By: #### L 501.0900, L509.1000, L500.2500, L506.1001, L100.0100, L501.1400 #### [facility] [address] [place], [address] Protein (U) [Mass/Vol] 185.2 mg/dL High <11.9 [facility] Comment on above: Performed By: #### L 501.0900, L509.1000, L500.2500, L506.1001, L100.0100, L501.1400 #### [facility] [address] [place], [address] UR CREAT 203.00 mg/dL Normal NO RANGE EST. [facility] Comment on above: Performed By: #### L 501.0900, L509.1000, L500.2500, L506.1001, L100.0100, L501.1400 #### [facility] [address] [place], [address] Urinalysis, Routine (Dipstic k)on 08-29-2024 BILIRUBIN URINE Negative Normal Negative [facility] Comment on above: Order Comment: CLEAN CATCH Performed By: #### L 501.0900, L509.1000, L500.2500, L506.1001, L100.0100, L501.1400 #### [facility] [address] [place], [address] Clarity (U) Sl. Cloudy Normal Clear [facility] Comment on above: Order Comment: CLEAN CATCH Performed By: #### L 501.0900, L509.1000, L500.2500, L506.1001, L100.0100, L501.1400 #### [facility] [address] [place], [address] Color (U) Yellow Normal Yellow [facility] Comment on above: Order Comment: CLEAN CATCH Performed By: #### L 501.0900, L509.1000, L500.2500, L506.1001, L100.0100, L501.1400 #### [facility] [address] [place], [address] GLUCOSE, UR Normal Normal Normal [facility] Comment on above: Order Comment: CLEAN CATCH Performed By: #### L 501.0900, L509.1000, L500.2500, L506.1001, L100.0100, L501.1400 #### [facility] [address] [place], [address] KETONE UR Negative Normal Negative [facility] Comment on above: Order Comment: CLEAN CATCH Performed By: #### L 501.0900, L509.1000, L500.2500, L506.1001, L100.0100, L501.1400 #### [facility] [address] [place], [address] LEUK ESTERASE 25 /ul Abnormal Negative [facility] Comment on above: Order Comment: CLEAN CATCH Performed By: #### L 501.0900, L509.1000, L500.2500, L506.1001, L100.0100, L501.1400 #### [facility] [address] [place], [address] Nitrite Ql (U) Negative Normal Negative [facility] Comment on above: Order Comment: CLEAN CATCH Performed By: #### L 501.0900, L509.1000, L500.2500, L506.1001, L100.0100, L501.1400 #### [facility] [address] [place], [address] OCCULT BLOOD-UR 250 /ul Abnormal Negative [facility] Comment on above: Order Comment: CLEAN CATCH Performed By: #### L 501.0900, L509.1000, L500.2500, L506.1001, L100.0100, L501.1400 #### [facility] [address] [place], [address] pH UR 6.0 Normal 5.0 - 8.0 [facility] Comment on above: Order Comment: CLEAN CATCH Performed By: #### L 501.0900, L509.1000, L500.2500, L506.1001, L100.0100, L501.1400 #### [facility] [address] [place], [address] PROT DIPSTX 100 mg/dl Abnormal Negative [facility] Comment on above: Order Comment: CLEAN CATCH Performed By: #### L 501.0900, L509.1000, L500.2500, L506.1001, L100.0100, L501.1400 #### [facility] [address] [place], [address] SP.GR. DIPSTX 1.025 Normal 1.002-1.030 [facility] Comment on above: Order Comment: CLEAN CATCH Performed By: #### L 501.0900, L509.1000, L500.2500, L506.1001, L100.0100, L501.1400 #### [facility] [address] [place], [place], [address] UROBILI Normal Normal Normal [facility] Comment on above: Order Comment: CLEAN CATCH Performed By: #### L 501.0900, L509.1000, L500.2500, L506.1001, L100.0100, L501.1400 #### [facility] [address] [place], [place], [address] CNOVon 08-24-2024 CNOV Office Visit (UNWOUN ) -- KRYSTEN CROOK V ([id number]) 1985 M Date Time Provider Department 08/24/24 8:00 AM ROB ALBA [facility] During your visit today, we recorded the following information about you: Temperature Pulse Respiration Blood pressure 97.3 degrees 97/minute 16/minute 110/83 Naila Xiong LPN 08/24/2024 8:24 AM Signed WOUND ASSESSMENT COMPLETED BY SHABANA CROWDER RN. Barbara Barlow RN 08/24/2024 8:52 AM Addendum HEALED RIGHT LOWER [...] do not need to return to the [facility]. Please call if you have any problems or the ulcer reoccurs. Rob Alba DPM 08/24/2024 9:03 AM Signed Wound Care Progress [...] states he is to follow-up with his drug coordinator and clinical fellow next week. PAST MEDICAL HISTORY Diagnosis Date [...] skin rash to the lower extremities bilaterally. Thorp scars are noted where epithelialization of the [...] Yes Wound Approximat (more content not included)... [facility] 08-10-2024 [facility] Office Visit (UNWOUN ) -- KRYSTEN CROOK V ([id number]) 1985 M Date Time Provider Department 08/10/24 [...] questions or concerns: Wednesday-Wednesday 8am-4:30pm, call the [facility] at [phone]. After 4:30pm, on weekends or holidays, call [facility] at [phone] and have the physician conveyor system operator paged. Sun Morris RN 08/10/2024 8:18 AM [...] has been referred to a specialist in [place] to follow-up with his vasculitis. [facility] made the referral. PAST MEDICAL HISTORY [...] to the ulc (more content not included)... [facility] Office Visit (UNWOUN ) -- KRYSTEN CROOK V ([id number]) 1985 M Date Time Provider Department 08/03/24 [...] cast padding as needed Change weekly at [facility] and as needed If problems with compression [...] questions or concerns: Wednesday-Wednesday 8am-4:30pm, call the [facility] at [phone]. After 4:30pm, on weekends or holidays, call [facility] at [phone] and have the physician conveyor system operator paged. Rob Alba DPM 08/03/2024 9:25 AM [...] lower extremities. L (more content not included)... [facility] 08-02-2024 [facility] Office Visit (FMUPCE ) -- KRYSTEN CROOK V ([id number]) 1985 M Date Time Provider Department 08/02/24 9:20 AM HUY MARQUEZ [facility] During your visit today, we recorded the following information about you: Pulse Blood pressure Weight 79/minute 125/86 129.6 kg Huy Marquez MD 08/02/2024 9:02 PM Signed Huy Marquez MD [address] [place] [address] Dept: [phone] Dept Visit Date: August 02, 2024 Name: Krysten Crook Date of : 1985 MRN/E #: [id number] Subjective Chief Complaint: New Patient (Pt here [...] date: 2008 Quit date: 2018 Years since quittin.7 Smokeless tobacco: Former Types: Chew Quit date: 2021 Vaping Use Vaping status: current everyday user Substances: Nicotine Substance Use Topics Alcohol use: Yes Comment: occasional Drug use: Never reports being sexually active and has had partner(s) who are female. He reports using the following method of control/protection: Surgical. Employer And Job Title: No employer specified (work for [employer]) Years Of Education Completed: GED years Marital [...] of 0 to (more content not included)... [facility] 07-27-2024 [facility] Office Visit (UN[facility]OUN ) -- KRYSTEN CROOK V ([id number]) 1985 M Date Time Provider Department 07/27/24 8:30 AM ROB ALBA [facility] During your visit today, we recorded the following information about you: Temperature Pulse Respiration Blood pressure 97.6 degrees 73/minute 18/minute 137/94 Ayesha Rolon RN 07/27/2024 8:54 AM Signed WOUND ASSESSMENT COMPLETED BY Barbaar Harris LPN, RN 07/27/2024 8:52 AM Signed RIGHT LOWER EXTREMITY AND LEFT LOWER EXTREMITY ULCERS: Shower with dressing protected/covered Cleanse ulcers with normal saline Apply betamethasone cream to intact skin Apply THERA HONEY FOAM to ulcers Cover with non adhesive foam as needed Apply 2 layer compression bandage system Calamine May pad ankle/achilles with felt/foam or cast padding as needed Change weekly at [facility] and as needed If problems with compression [...] questions or concerns: Wednesday-Wednesday 8am-4:30pm, call the [facility] at [phone]. After 4:30pm, on weekends or holidays, call [facility] at [phone] and have the physician conveyor system operator paged. Rob Alba DPM 07/27/2024 9:28 AM [...] Foot - Impression (more content not included)... [facility] CNOVon 07-20-2024 CNOV Office Visit (UNWOUN ) -- KRYSTEN CROOK V ([id number]) 1985 M Date Time Provider Department 07/20/24 9:00 AM ROB ALBA [facility] During your visit today, we recorded the following information about you: Temperature Pulse Respiration Blood pressure 97.8 degrees 98/minute 16/minute 119/86 Naila Xiong LPN 07/20/2024 9:25 AM Signed WOUND ASSESSMENT COMPLETED BY MELQUIADES BERRIOS LPN. PT C/O BLE BEING PRURITIC. Barbara Barlow RN 07/20/2024 9:49 AM Addendum RIGHT LOWER EXTREMITY AND LEFT LOWER EXTREMITY ULCERS: Shower with dressing protected/covered Cleanse ulcers with normal saline Apply betamethasone cream to intact skin Apply THERA HONEY FOAM to ulcers Cover with non adhesive foam as needed Apply 2 layer compression bandage system Calamine May pad ankle/achilles with felt/foam or cast padding as needed Change weekly at [facility] and as needed If problems with compression [...] questions or concerns: Wednesday-Wednesday 8am-4:30pm, call the [facility] at [phone]. After 4:30pm, on weekends or holidays, call [facility] at [phone] and have the physician conveyor system operator paged. Rob Alba DPM 07/20/2024 10:18 AM [...] found for: APTT (more content not included)... [facility] 07-13-2024 [facility] Office Visit (UN[facility]OUN ) -- KRYSTEN CROKO V ([id number]) 1985 M Date Time Provider Department 07/13/24 [...] cast padding as needed Change weekly at [facility] and as needed If problems with compression [...] questions or concerns: Wednesday-Wednesday 8am-4:30pm, call the [facility] at [phone]. After 4:30pm, on weekends or holidays, call [facility] at [phone] and have the physician conveyor system operator paged. Rob Alba DPM 07/13/2024 9:42 AM Signed Wound Care Progress [...] lower extremities. This resulted after going to [employer] and jumping into the water off of [...] Doppler - R (more content not included)... [facility] 07-07-2024 [facility] Office Visit (FMUPCN ) -- KRYSTEN CROOK V ([id number]) 1985 M Date Time Provider Department 07/07/24 2:20 PM TANMAY DO [facility] During your visit today, we recorded the following information about you: Temperature Pulse Blood pressure Weight 98.9 degrees 80/minute 128/92 127.5 kg Tanmay Do, STUDIO OPERATIONS ENGINEER IN CHARGE.[employer] 07/07/2024 3:14 PM Signed Krysten Crook is [...] for Encounter Date Provider Department Center 07/07/2024 [id number], (more content not included)... [facility] 06-29-2024 [facility] Office Visit ([facility] [place] -- KRYSTEN CROOK V ([id number]) 1985 M Date Time Provider Department 06/29/24 1:40 PM TANMAY DO [facility] During your visit today, we recorded the following information about you: Temperature Pulse Respiration Blood pressure 98.2 degrees 89/minute 18/minute 122/88 Tanmay Do, STUDIO OPERATIONS ENGINEER IN CHARGE.[facility] 06/29/2024 2:40 PM Signed Krysten Melaraman is a 39 year old male here [...] CLINDAMYCIN HCL 300 MG CAPSULE Tanmay Do, MANAGER SYSTEMS Follow Up: Return if symptoms worsen or [...] for Encounter Date Provider Department Center 06/29/2024 [id number]-[facility]ANMAY DO [facility]Dora Letter Text Encounter Status:Closed by TANMAY DO on 06/29/24 Normal [facility] Basic metabolic 2000 panelon 06-24-2024 Anion gap [Moles/Vol] 10 mmol/L Normal 8-15 [facility] Comment on above: Order Comment: Speci men Type: BLOOD SPECIMENOrdering Facility: [facility] Address: [address] [place] [address] [place] [address] Performed By: #### 3 3762-6, 45859-0, 29604-3 ####[facility] LABCLIA [id number] [place] [address] [place] Calcium [Mass/Vol] 9.2 mg/dL Normal 8.5-10.2 [facility] Comment on above: Order Comment: Speci men Type: BLOOD SPECIMENOrdering Facility: [facility] Address: [address] [place] [address] Performed By: #### 3 3762-6, , 32813-4 ####[facility] LABIA [id number] [place] [address] [place] Chloride [Moles/Vol] 97 mmol/L Low 98-107 [facility] Comment on above: Order Comment: Speci men Type: BLOOD SPECIMENOrdering Facility: [facility] Address: [address] [place] [address] Performed By: #### 3 3762-6, , ####[facility] [id number] [place] [address] [place] CO2 [Moles/Vol] 30 mmol/L Normal 22-30 [facility] Comment on above: Order Comment: Speci men Type: BLOOD SPECIMENOrdering Facility: [facility] Address: [address] [place] [address] Performed By: #### 3 3762-6, , ####[facility] [id number] [place] [address] [place] Creatinine [Mass/Vol] 1.13 mg/dL Normal 0.73-1.22 [facility] Comment on above: Order Comment: Speci men Type: BLOOD SPECIMENOrdering Facility: [facility] Address: [address] [place] [address] Performed By: #### 3 3762-6, , 83518-5 ####[facility] LABIA [id number] [place] [address] [facility] Creatinine and Glomerular filtration rate.predicted panel (S/P/Bld) 85 mL/min/1.73m??? Normal >=60 [facility] Comment on above: Order Comment: Speci men Type: BLOOD SPECIMENOrdering Facility: [facility] Address: [address] [place] [id number] Result Comment: Ana mated Glomerular Filtration Rate [...] GFR. Performed By: #### 3 3762-6, , 96594-1 ####[facility] LABCLIA [id number] [place] [address] [place] Glucose [Mass/Vol] 90 mg/dL Normal 74-99 [facility] Comment on above: Order Comment: Carlita zamudio Type: BLOOD SPECIMENOrdering Facility: [facility] Address: [address] [place] [address] Result Comment: The [place] Diabetes Association (ADA) provides guidance for cutoff [...] Standards of Medical Care in Diabetes 2016, [place] [employer]. Diabetes Care. 2016.39(Suppl 1). Performed By: #### 3 3762-6, , 75000-3 ####[facility] LABCLIA [id number] [place] [address] [place] Potassium [Moles/Vol] 3.6 mmol/L Low 3.7-5.1 [facility] Comment on above: Order Comment: Carlita zamudio Type: BLOOD SPECIMENOrdering Facility: [facility] Address: [address] [place] [id number] Performed By: #### 3 3762-6, , 83736-7 ####[facility] LABCLIA [id number] [place] [address] [place] Sodium [Moles/Vol] 137 mmol/L Normal 136-144 [facility] Comment on above: Order Comment: Speci men Type: BLOOD SPECIMENOrdering Facility: [facility] Address: [address] [place] [address] Performed By: #### 3 3762-6, , 56230-2 ####[facility] LABIA [id number] [place] [address] [place] Urea nitrogen [Mass/Vol] 23 mg/dL Normal 9-24 [facility] Comment on above: Order Comment: Speci men Type: BLOOD SPECIMENOrdering Facility: [facility] Address: [address] [place] [address] Performed By: #### 3 3762-6, , 23387-4 ####[facility] LABIA [id number] [place] [address] [place] CBC W Auto Differential pane l (Bld)on 06-24-2024 Basophils (Bld) [#/Vol] 10*3/uL Normal <0.11 [facility] Comment on above: Order Comment: Speci men Type: BLOOD SPECIMENOrdering Facility: [facility] Address: [address] [place] [address] Performed By: #### 5 7021-8 ####[facility] LABIA [id number] [place] [address] [place] Basophils/100 WBC (Bld) 0.1 % Normal [facility] Comment on above: Order Comment: Speci men Type: BLOOD SPECIMENOrdering Facility: [facility] Address: [address] [place] [address] Performed By: #### 5 7021-8 ####[facility] LABIA [id number] [place] [address] [place] Differential cell count method Nom (Bld) Auto Normal [facility] Comment on above: Order Comment: Speci men Type: BLOOD SPECIMENOrdering Facility: [facility] Address: [address] [place] [address] Performed By: #### 5 7021-8 ####[facility] LABIA [id number] [address] Eosinophils (Bld) [#/Vol] 0.09 10*3/uL Normal <0.46 [facility] Comment on above: Order Comment: Speci men Type: BLOOD SPECIMENOrdering Facility: [facility] Address: [address] [place] [address] Performed By: #### 5 7021-8 ####[facility] LABIA [id number] [address] Eosinophils/100 WBC (Bld) 0.6 % Normal [facility] Comment on above: Order Comment: Speci men Type: BLOOD SPECIMENOrdering Facility: [facility] Address: [address] [place] [address] Performed By: #### 5 7021-8 ####[facility] LABIA [id number] [address] [place] [facility] Erythrocyte distribution width (RBC) [Ratio] 13.3 % Normal 11.5-15.0 [facility] Comment on above: Order Comment: Speci men Type: BLOOD SPECIMENOrdering Facility: [facility] Address: [address] [place] [address] Performed By: #### 5 7021-8 ####[facility] LABIA [id number] [address] Hematocrit (Bld) [Volume fraction] 44.0 % Normal 39.0-51.0 [facility] Comment on above: Order Comment: Speci men Type: BLOOD SPECIMENOrdering Facility: [facility] Address: [address] [place] [address] Performed By: #### 5 7021-8 ####[facility] LABIA [id number] [address] [place] Hemoglobin (Bld) [Mass/Vol] 14.2 g/dL Normal 13.0-17.0 [facility] Comment on above: Order Comment: Speci men Type: BLOOD SPECIMENOrdering Facility: [facility] Address: [address] [place] [address] Performed By: #### 5 7021-8 ####[facility] LABIA [id number] [place] [address] [place] Immature granulocytes (Bld) [#/Vol] 0.07 10*3/uL Normal <0.10 [facility] Comment on above: Order Comment: Speci men Type: BLOOD SPECIMENOrdering Facility: [facility] Address: [address] [place] [address] Performed By: #### 5 7021-8 ####[facility] LABIA [id number] [place] [address] [place] Immature granulocytes/100 WBC (Bld) 0.5 % Normal [facility] Comment on above: Order Comment: Speci men Type: BLOOD SPECIMENOrdering Facility: [facility] Address: [address] [place] [address] Performed By: #### 5 7021-8 ####[facility] [id number] [place] [address] [place] Lymphocytes (Bld) [#/Vol] 3.86 10*3/uL Normal 1.00-4.00 [facility] Comment on above: Order Comment: Speci men Type: BLOOD SPECIMENOrdering Facility: [facility] Address: [address] [place] [address] Performed By: #### 5 7021-8 ####[facility] LABIA [id number] [place] [address] [place] Lymphocytes/100 WBC (Bld) 26.0 % Normal [facility] Comment on above: Order Comment: Speci men Type: BLOOD SPECIMENOrdering Facility: [facility] Address: [address] [place] [address] Performed By: #### 5 7021-8 ####[facility] LABIA [id number] [address] MCH (RBC) [Entitic mass] 28.8 pg Normal 26.0-34.0 [facility] Comment on above: Order Comment: Speci men Type: BLOOD SPECIMENOrdering Facility: [facility] Address: [address] [place] [address] Performed By: #### 5 7021-8 ####[facility] LABCLIA [id number] [address] [place] MCHC (RBC) [Mass/Vol] 32.3 g/dL Normal 30.5-36.0 [facility] Comment on above: Order Comment: Speci men Type: BLOOD SPECIMENOrdering Facility: [facility] Address: [address] [place] [address] Performed By: #### 5 7021-8 ####[facility] LABIA [id number] [address] [place] MCV (RBC) [Entitic vol] 89.2 fL Normal 80.0-100.0 [facility] Comment on above: Order Comment: Speci men Type: BLOOD SPECIMENOrdering Facility: [facility] Address: [address] [place] [address] Performed By: #### 5 7021-8 ####[facility] LABIA [id number] [address] Monocytes (Bld) [#/Vol] 0.87 10*3/uL High <0.87 [facility] Comment on above: Order Comment: Speci men Type: BLOOD SPECIMENOrdering Facility: [facility] Address: [address] [place] [address] Performed By: #### 5 7021-8 ####[facility] LABCLIA [id number] [address] Monocytes/100 WBC (Bld) 5.9 % Normal [facility] Comment on above: Order Comment: Speci men Type: BLOOD SPECIMENOrdering Facility: [facility] Address: [address] [place] [address] Performed By: #### 5 7021-8 ####[facility] LABIA [id number] [place] [address] [place] Neutrophils (Bld) [#/Vol] 9.96 10*3/uL High 1.45-7.50 [facility] Comment on above: Order Comment: Speci men Type: BLOOD SPECIMENOrdering Facility: [facility] Address: [address] [place] [address] Performed By: #### 5 7021-8 ####[facility] LABIA [id number] [place] [address] [place] Neutrophils/100 WBC (Bld) 66.9 % Normal [facility] Comment on above: Order Comment: Speci men Type: BLOOD SPECIMENOrdering Facility: [facility] Address: [address] [place] [address] Performed By: #### 5 7021-8 ####[facility] [id number] [place] [address] [place] Nucleated RBC (Bld) [#/Vol] 10*3/uL Normal <0.01 [facility] Comment on above: Order Comment: Speci men Type: BLOOD SPECIMENOrdering Facility: [facility] Address: [address] [place] [address] Performed By: #### 5 7021-8 ####[facility] [id number] [place] [address] [place] Nucleated RBC/100 WBC (Bld) [Ratio] 0.0 /100 WBC Normal [facility] Comment on above: Order Comment: Speci men Type: BLOOD SPECIMENOrdering Facility: [facility] Address: [address] [place] [address] Performed By: #### 5 7021-8 ####[facility] [id number] [place] [address] [place] Platelet mean volume (Bld) [Entitic vol] 8.6 fL Low 9.0-12.7 [facility] Comment on above: Order Comment: Speci men Type: BLOOD SPECIMENOrdering Facility: [facility] Address: [address] [place] [address] Performed By: #### 5 7021-8 ####[facility] LABIA [id number] [place] [address] [facility] [place] Platelets (Bld) [#/Vol] 305 10*3/uL Normal 150-400 [facility] Comment on above: Order Comment: Speci men Type: BLOOD SPECIMENOrdering Facility: [facility] Address: [address] [place] [address] Performed By: #### 5 7021-8 ####[facility] [id number] [place] [address] [place] RBC (Bld) [#/Vol] 4.93 10*6/uL Normal 4.20-6.00 [facility] Comment on above: Order Comment: Speci men Type: BLOOD SPECIMENOrdering Facility: [facility] Address: [address] [place] [address] Performed By: #### 5 7021-8 ####[facility] [id number] [place] [address] [facility] WBC (Bld) [#/Vol] 14.87 10*3/uL High 3.70-11.00 [facility] Comment on above: Order Comment: Speci men Type: BLOOD SPECIMENOrdering Facility: [facility] Address: [address] [place] [address] Performed By: #### 5 7021-8 ####[facility] [id number] [place] [address] [facility] ED NOTEon 06-24-2024 ED NOTE HNO ID: [id number] Author: NELLIE MUÑOZ HUC Service: Emergency Medicine Author Type: ? Type: ED Notes Filed: 06/25/2024 12:49 Note Text: PT RETURNED PHONE CALL WITH A QUESTION WANTING TO KNOW IF THERE WAS A LIST OF PCPS THAT HAD AVAILABILITY. TOLD PT I DID NOT HAVE ACCESS TO ANY INFORMATION LIKE THAT AND HE NEEDED TO CALL AROUND TOMORROW TO GET A PCP Normal [facility] ED NOTE HNO ID: [id number] Author: ESPERANZA WALKER SHEELA Service: Emergency Medicine Author Type: Registered Nurse Type: ED Notes Filed: 06/24/2024 19:02 Note Text: Report to brianna jacobs rn [facility] ED PROV NOTEon 06-24-2024 ED PROV NOTE HNO ID: [id number] Author: TAMRA DAVILA MD Service: Emergency Medicine Author Type: Physician Type: ED Provider Notes Filed: 06/24/2024 23:31 Note Text: ED Provider Note Patient Name: Krysten Crook : 1985 SERVICE DATE: 06/24/24 History Patient presents with: Edema HPI Patient presents with concern for bilateral lower extremity swelling. 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 Initial vital signs remarkable for mild tachycard (more content not included)... Normal [facility] Magnesium [facility] 06-24 Magnesium [Mass/Vol] 2.2 mg/dL Normal 1.7-2.3 [facility] Comment on above: Order Comment: Speci men Type: BLOOD SPECIMENOrdering Facility: [facility] Address: [address] [place] [address] Performed By: #### 3 3762-6, 51911-0, 89633-1 ####[facility] [id number] [address] [place] NT-proBNP [facility] 06-24 Natriuretic peptide.B prohormone N-Terminal [Mass/Vol] <36 Normal <125 [facility] Comment on above: Order Comment: Speci [facility] Type: BLOOD SPECIMENOrdering Facility: [facility] Address: [address] [place] [address] Performed By: #### 3 3762-6, 73655-6, 37350-9 ####[facility] [id number] [place] [address] [place] Urinalysis complete panel (U )on 06-24-2024 Bilirubin Ql (U) Negative Normal Negative [facility] Comment on above: Order Comment: Speci [facility] Type: URINE SPECIMENOrdering Facility: [facility] Address: [address] [place] [address] Performed By: #### 2 4356-8 ####[facility] [id number] [address] [place] Clarity (Unsp spec) Clear Normal Clear [facility] Comment on above: Order Comment: Speci men Type: URINE SPECIMENOrdering Facility: [facility] Address: [address] [place] [address] Performed By: #### 2 4356-8 ####[facility] LABCLIA [id number] [address] [place] Color (U) Yellow Normal Yellow [facility] Comment on above: Order Comment: Speci men Type: URINE SPECIMENOrdering Facility: [facility] Address: [address] [place] [address] Performed By: #### 2 4356-8 ####[facility] LABIA [id number] [address] Glucose Test strip (U) [Mass/Vol] Negative Normal Negative [facility] Comment on above: Order Comment: Speci men Type: URINE SPECIMENOrdering Facility: [facility] Address: [address] [place] [address] Performed By: #### 2 4356-8 ####[facility] LABIA [id number] [place] [address] [place] Hemoglobin Ql (U) 2+ Abnormal Negative [facility] Comment on above: Order Comment: Speci men Type: URINE SPECIMENOrdering Facility: [facility] Address: [address] [place] [address] Performed By: #### 2 4356-8 ####[facility] LABCLIA [id number] [address] [place] Ketones Ql (U) Negative Normal Negative [facility] Comment on above: Order Comment: Speci men Type: URINE SPECIMENOrdering Facility: [facility] Address: [address] [place] [address] Performed By: #### 2 4356-8 ####[facility] LABCLIA [id number] [address] [place] [facility] Leukocyte esterase Test strip Ql (U) Negative Normal Negative [facility] Comment on above: Order Comment: Speci men Type: URINE SPECIMENOrdering Facility: [facility] Address: [address] [place] [address] Performed By: #### 2 4356-8 ####[facility] LABIA [id number] [place] [address] [place] Nitrite Ql (U) Negative Normal Negative [facility] Comment on above: Order Comment: Speci men Type: URINE SPECIMENOrdering Facility: [facility] Address: [address] [place] [address] Performed By: #### 2 4356-8 ####[facility] LABIA [id number] [place] [address] [place] pH (U) 6.0 [pH] Normal 5.0-8.0 [facility] Comment on above: Order Comment: Speci men Type: URINE SPECIMENOrdering Facility: [facility] Address: [address] [place] [address] Performed By: #### 2 4356-8 ####[facility] [id number] [place] [address] [place] Protein (U) [Mass/Vol] Negative Normal Negative [facility] Comment on above: Order Comment: Speci men Type: URINE SPECIMENOrdering Facility: [facility] Address: [address] [place] [address] Performed By: #### 2 4356-8 ####[facility] [id number] [place] [address] [place] RBC LM.HPF (Urine sed) [#/Area] 3-5 /HPF Abnormal 0-3 /HPF [facility] Comment on above: Order Comment: Speci men Type: URINE SPECIMENOrdering Facility: [facility] Address: [address] [place] [address] Performed By: #### 2 4356-8 ####[facility] [id number] [address] [place] Specific gravity (U) [Rel density] 1.015 Normal 1.005-1.030 [facility] Comment on above: Order Comment: Speci men Type: URINE SPECIMENOrdering Facility: [facility] Address: [address] [place] [address] Performed By: #### 2 4356-8 ####[facility] LABCLIA [id number] [address] [place] [facility] Urobilinogen Ql (U) 0.2 EU/dL Normal 0.2-1.0 EU/dL [facility] Comment on above: Order Comment: Speci men Type: URINE SPECIMENOrdering Facility: [facility] Address: [address] [place] [address] Performed By: #### 2 4356-8 ####[facility] LABIA [id number] [address] [place] [facility] WBC LM.HPF (Urine sed) [#/Area] 0-5 /HPF Normal 0-5 /HPF [facility] Comment on above: Order Comment: Speci men Type: URINE SPECIMENOrdering Facility: [facility] Address: [address] [place] [address] Performed By: #### 2 4356-8 ####[facility] [id number] [address] [place] XR CHEST 1V FRONTAL PORTon 0 06-24-2024 [...] normal limits. Other: No acute bony abnormality. Ultrasound Technol: ABBY Transcribe Date/Time: Jun 24 2024 7:59P Dictated by : KRYSTEN COTTER MD This examination was interpreted and the report reviewed and electronically signed by: KRYSTEN COTTER MD on Jun 24 2024 7:59PM EST [id number] Normal [facility] C REACTIVE PROTEINon 024 CRP High sensitivity method [Mass/Vol] 9.01 mg/L NINF - 10.00 mg[facility]TER[facility], ACUTEon 0 06-10-2024 Hep B Core Ab,Total (IgG+IgM) Negative Normal Negative [facility] Comment on above: Performed By: #### H EP1B #### [facility] (DEFAULT) [address] [place] [address] Hep B Core IgM Ab Negative Normal Negative [facility] Comment on above: Performed By: #### H EP1B #### [facility] (DEFAULT) [address] [place] [address] Hepatitis A IgM Ab Negative Normal Negative [facility] Comment on above: Performed By: #### H EP1B #### [facility] (DEFAULT) [address] [place] [address] Hepatitis B Surface Ag Negative Normal Negative [facility] Comment on above: Performed By: #### H EP1B #### [facility] (DEFAULT) [address] [place] [address] Hepatitis C Antibody Negative Normal Negative [facility] Comment on above: Performed By: #### H EP1B #### [facility] (DEFAULT) [address] [place] [address] IGAon 06-10-2024 IgA [Mass/Vol] 278 mg/dL 66 - 433 mg/dL [facility] Laboratory - Urinalysison Bacteria LM Ql (Urine sed) ABSENT ABSENT [facility] Epithelial cells.squamous LM Ql (Urine sed) 0-2/hpf 0-2/hpf, 3-5/hpf = 1+ [facility] RBC LM.HPF (Urine sed) [#/Area] 6-[address] [facility] WBC LM.HPF (Urine sed) [#/Area] 0 - 5 [facility] No Panel Informationon 06-10 [facility] Interpretation and review of laboratory results Abnormal [facility] Interpretation and review of laboratory results Normal [facility] SEDIMENTATION RATE, AUTOMATE Don 06-10-2024 ESR (Bld) [Velocity] 20 mm/h High NINF [facility] Interpretation and review of laboratory results Abnormal [facility] ESR Westergren 20 mm/hr High <15 [facility] Comment on above: Performed By: #### L [id number] #### [facility] (DEFAULT) [address] [place] [address] URINALYSIS REFLEX TO CULTURE PERFORMABLEon 06-10-2024 Appearance (U) Clear Clear [facility] Color (U) Yellow Yellow [facility] Glucose Test strip (U) [Mass/Vol] Negative Negative [facility] Ketones (U) [Mass/Vol] Negative Negative [facility] Leukocyte esterase Test strip Ql (U) Negative Negative [facility] Nitrite Ql (U) Negative Negative [facility] pH (U) 5.5 [pH] 5.0 - 7.0 [facility] Protein (U) [Mass/Vol] 30 mg/dL Abnormal Negative [facility] RBC (U) [#/Vol] Small Abnormal Negative [facility] Specific gravity (U) [Rel density] 1.025 1.001 - 1.035 [facility] Urobilinogen (U) [Mass/Vol] 0.2 E.U./dL 0.2 E.U/dL, 1.0 E.U/dL [facility] Bacteria ABSENT Normal ABSENT [facility] Comment on above: Order Comment: For i ndwelling catheters, specimen collection is acceptable on catheter day 1 and 2 only. ? Performed By: #### L [id number], [id number], [id number] #### [facility] (DEFAULT) [address] [place] [address] Performed By: #### L [id number] #### [facility] (DEFAULT) [address] [place] [address] RBC Urine 6-10 Abnormal 0-2 [facility] Comment on above: Order Comment: For i ndwelling catheters, specimen collection is acceptable on catheter day 1 and 2 only. ? Performed By: #### L [id number], [id number], [id number] #### [facility] (DEFAULT) [address] [place] [address] Performed By: #### L [id number] #### [facility] (DEFAULT) [address] [place] [address] Squamous/Epithelial Cells 0-2/hpf Normal 0-2/hpf, 3-5/hpf = 1+ [facility] Comment on above: Order Comment: For i ndwelling catheters, specimen collection is acceptable on catheter day 1 and 2 only. ? Performed By: #### L [id number], [id number], [id number] #### [facility] (DEFAULT) [address] [place] [address] Performed By: #### L [id number] #### [facility] (DEFAULT) [address] [place] [address] WBC Urine 0 - 5 Normal 0 - 5 [facility] Comment on above: Order Comment: For i ndwelling catheters, specimen collection is acceptable on catheter day 1 and 2 only. ? Performed By: #### L [id number], [id number], [id number] #### [facility] (DEFAULT) [address] [place] [address] Performed By: #### L [id number] #### [facility] (DEFAULT) [address] [place] [address] URINE DIPSTICK; REFLEX MICRO SCOPY; REFLEX CULTURE PERFORMABLEon 06-10-2024 Appearance (U) Clear Clear [facility] Color (U) Yellow Yellow [facility] Glucose Test strip (U) [Mass/Vol] Negative Negative [facility] Interpretation and review of laboratory results Abnormal [facility] Ketones (U) [Mass/Vol] Negative Negative [facility] Leukocyte esterase Test strip Ql (U) Negative Negative [facility] Nitrite Ql (U) Negative Negative [facility] pH (U) 5.5 [pH] 5.0 - 7.0 [facility] Protein (U) [Mass/Vol] 30 mg/dL Abnormal Negative [facility] RBC (U) [#/Vol] Small Abnormal Negative [facility] Specific gravity (U) [Rel density] 1.025 1.001 - 1.035 [facility] Urobilinogen (U) [Mass/Vol] 0.2 E.U./dL 0.2 E.U/dL, 1.0 E.U/dL [facility] Appearance (U) Clear Normal Clear [facility] Comment on above: Performed By: #### L [id number], [id number], [id number] #### [facility] (DEFAULT) [address] [place] [address] Order Comment: For i ndwelling catheters, specimen collection is acceptable on catheter day 1 and 2 only. ? Blood Urine Small Abnormal Negative [facility] Comment on above: Performed By: #### Mohamud [id number], [id number], [id number] #### [facility] (DEFAULT) [address] [place] [address] Order Comment: For i ndwelling catheters, specimen collection is acceptable on catheter day 1 and 2 only. ? Color (U) Yellow Normal Yellow [facility] Comment on above: Performed By: #### L [id number], [id number] #### [facility] (DEFAULT) [address] [place] [address] Order Comment: For i ndwelling catheters, specimen collection is acceptable on catheter day 1 and 2 only. ? Glucose Ql (U) Negative Normal Negative [facility] Comment on above: Performed By: #### L [id number], [id number] #### [facility] (DEFAULT) [address] [place] [address] Order Comment: For i ndwelling catheters, specimen collection is acceptable on catheter day 1 and 2 only. ? Ketones Ql (U) Negative Normal Negative [facility] Comment on above: Performed By: #### Mohamud [id number] PONCE, [id number] #### [facility] (DEFAULT) [address] [place] [address] Order Comment: For i ndwelling catheters, specimen collection is acceptable on catheter day 1 and 2 only. ? Leukocyte esterase Test strip Ql (U) Negative Normal Negative [facility] Comment on above: Performed By: #### Mohamud [id number] PONCE, [id number] #### [facility] (DEFAULT) [address] [place] [address] Order Comment: For i ndwelling catheters, specimen collection is acceptable on catheter day 1 and 2 only. ? Nitrites Urine Negative Normal Negative [facility] Comment on above: Performed By: #### Mohamud [id number] PENNY, [id number] #### [facility] (DEFAULT) [address] [place] [address] Order Comment: For i ndwelling catheters, specimen collection is acceptable on catheter day 1 and 2 only. ? pH (U) 5.5 [pH] Normal 5.0-7.0 [facility] Comment on above: Performed By: #### Mohamud [id number] PONCE, [id number] #### [facility] (DEFAULT) [address] [place] [address] Order Comment: For i ndwelling catheters, specimen collection is acceptable on catheter day 1 and 2 only. ? Protein Urine 30 mg/dL Abnormal Negative [facility] Comment on above: Performed By: #### L [id number], [id number], [id number] #### [facility] (DEFAULT) [address] [place] [address]163 Order Comment: For i ndwelling catheters, specimen collection is acceptable on catheter day 1 and 2 only. ? Specific [place] Urine 1.025 Normal 1.001-1.035 [facility] Comment on above: Performed By: #### L [id number], [id number], [id number] #### [facility] (DEFAULT) [address] [place] [address] Order Comment: For i ndwelling catheters, specimen collection is acceptable on catheter day 1 and 2 only. ? Urobilinogen Urine 0.2 E.U./dL Normal 0.2 E.U/d L, 1.0 E.U/dL [facility] Comment on above: Performed By: #### L [id number], [id number], [id number] #### [facility] (DEFAULT) [address] [place] [address] Order Comment: For i ndwelling catheters, specimen collection is acceptable on catheter day 1 and 2 only. ? ALTON MULTIPLEX SCRN WITH REFL EXon 06-09-2024 ALTON Screen, Multiplex Negative Normal Negative [facility] Comment on above: Result Comment: This test includes the following antibodies: Centromere, Chromatin, DsDNA, Jo1, Ribosomal P, RN FAMILY PRACTICE, ScL70, Sm/RN FAMILY PRACTICE, Jorge, SSA and SSB. A negative screen result means each antibody listed is negative. If positive, the individual antibody results will be reflexed. Performed By: #### A NASR, ANGELA, ANCA, CRP, IGA #### [facility] (DEFAULT) [address] [place] [address]27 ALTON SCREEN IFAon 06-09-2024 Antinuclear Antibody, IFA Negative Normal Negative [facility] Comment on above: Performed By: #### A NASR, ANGELA, ANCA, CRP, IGA #### [facility] (DEFAULT) [address] [place] [address]992 ANTI NEUTROPHIL CYTOPLASMIC ANTIBODYon 06-09-2024 Neutrophil Cytoplasmic Antibody Negative Normal Negative [facility] Comment on above: Performed By: #### A NASR, ANGELA, ANCA, CRP, IGA #### [facility] (DEFAULT) [address] [place] [address]36 C REACTIVE PROTEINon 024 CRP [Mass/Vol] 9.01 mg/L Normal <10.00 [facility] Comment on above: Performed By: #### A NASR, ANGELA, ANCA, CRP, IGA #### [facility] (DEFAULT) [address] [place] [address] CBC AND ELECTRONIC DIFFon Basophils (Bld) [#/Vol] K/uL 0.00 - 0.09 K/uL [facility] Basophils/100 WBC (Bld) 0.2 % [facility] Differential cell count method Nom (Bld) Electronic Differential [facility] Eosinophils (Bld) [#/Vol] 0.05 10*3/uL 0.00 - 0.48 K/uL [facility] Eosinophils/100 WBC (Bld) 0.3 % [facility] Erythrocyte distribution width (RBC) [Ratio] 13.2 % 10.9 - 14.3 % [facility] Hematocrit (Bld) [Volume fraction] 42.1 % 39.6 - 48.8 % [facility] Hemoglobin (Bld) [Mass/Vol] 13.8 g/dL 13.4 - 16.8 g/dL [facility] Immature granulocytes (Bld) [#/Vol] 0.07 10*3/uL NINF - 0.07 K/uL [facility] Immature granulocytes/100 WBC (Bld) 0.4 % [facility] Interpretation and review of laboratory results Abnormal [facility] Lymphocytes (Bld) [#/Vol] 2.92 10*3/uL 0.83 - 3.57 K/uL [facility] Lymphocytes/100 WBC (Bld) 17.0 % [facility] MCH (RBC) [Entitic mass] 28.6 pg 26.1 - 33.[address] [facility] MCHC (RBC) [Mass/Vol] 32.8 g/dL 31.9 - 36.5 g/dL [facility] MCV (RBC) [Entitic vol] 87.2 fL 79.0 - 94.[address] [facility] Monocytes (Bld) [#/Vol] 1.01 10*3/uL High 0.24 - 0.93 K/uL [facility] Monocytes/100 WBC (Bld) 5.9 % [facility] Neutrophils (Bld) [#/Vol] 13.14 10*3/uL High 1.57 - 6.19 K/uL [facility] Nucleated RBC/100 WBC (Bld) [Ratio] 0.0 % NINF [facility] Platelet mean volume (Bld) [Entitic vol] 8.8 fL 8.7 - 12.[address] [facility] Platelets (Bld) [#/Vol] 351 10*3/uL High 146 - 337 K/uL [facility] RBC (Bld) [#/Vol] 4.83 10*6/uL [facility] Segmented neutrophils/100 WBC (Bld) 76.2 % [facility] WBC (Bld) [#/Vol] 17.22 10*3/uL High 3.73 - 10 .10 K/uL [facility] Abs Baso Auto < Normal 0.00-0.09 [facility] Comment on above: Performed By: #### L AB980 #### [facility] (DEFAULT) [address] [address] Basophils/100 WBC (Bld) 0.2 % Normal [facility] Comment on above: Performed By: #### L AB980 #### [facility] (DEFAULT) [address] [address] DIFF STATUS Electronic Differential Normal [facility] Comment on above: Performed By: #### L AB980 #### [facility] (DEFAULT) [address] [address] Eosinophils (Bld) [#/Vol] 0.05 10*3/uL Normal 0.00-0.48 [facility] Comment on above: Performed By: #### L AB980 #### [facility] (DEFAULT) [address] [address] Eosinophils/100 WBC (Bld) 0.3 % Normal [facility] Comment on above: Performed By: #### L AB980 #### [facility] (DEFAULT) [address] [address] Hematocrit (Bld) [Volume fraction] 42.1 % Normal 39.6-48.8 [facility] Comment on above: Performed By: #### L AB980 #### [facility] (DEFAULT) [address] [address] Hemoglobin (Bld) [Mass/Vol] 13.8 g/dL Normal 13.4-16.8 [facility] Comment on above: Performed By: #### L AB980 #### [facility] (DEFAULT) [address] [address] Immature Grans % 0.4 % Normal [facility] Comment on above: Performed By: #### L AB980 #### [facility] (DEFAULT) [address] [address] Immature Grans Absolute 0.07 K/uL Normal <=0.07 [facility] Comment on above: Performed By: #### L AB980 #### [facility] (DEFAULT) [address] [address] Lymphocytes (Bld) [#/Vol] 2.92 10*3/uL Normal 0.83-3.57 [facility] Comment on above: Performed By: #### L AB980 #### [facility] (DEFAULT) [address] [address] Lymphocytes/100 WBC (Bld) 17.0 % Normal [facility] Comment on above: Performed By: #### L AB980 #### [facility] (DEFAULT) [address] [address] MCV (RBC) [Entitic vol] 87.2 fL Normal 79.0-94.5 [facility] Comment on above: Performed By: #### L AB980 #### [facility] (DEFAULT) [address] [place] [address] Mean Cell Hgb 28.6 pg Normal 26.1-33.3 [facility] Comment on above: Performed By: #### L AB980 #### [facility] (DEFAULT) [address] [place] [address]141 Mean Cell Hgb Conc 32.8 g/dL Normal 31.9-36.5 [facility] Comment on above: Performed By: #### L AB980 #### [facility] (DEFAULT) [address] [place] [address] Monocytes (Bld) [#/Vol] 1.01 10*3/uL High 0.24-0.93 [facility] Comment on above: Performed By: #### L AB980 #### [facility] (DEFAULT) [address] [place] [address] Monocytes/100 WBC (Bld) 5.9 % Normal [facility] Comment on above: Performed By: #### L AB980 #### [facility] (DEFAULT) [address] [place] [address] Nucleated RBC 0.0 /100 WBC Normal <=0.2 [facility] Comment on above: Performed By: #### L AB980 #### [facility] (DEFAULT) [address] [place] [address] Platelet mean volume (Bld) [Entitic vol] 8.8 fL Normal 8.7-12.3 [facility] Comment on above: Performed By: #### L AB980 #### [facility] (DEFAULT) [address] [place] [address] Platelets (Bld) [#/Vol] 351 10*3/uL High 146-337 [facility] Comment on above: Performed By: #### L AB980 #### [facility] (DEFAULT) [address] [place] [address] RBC (Bld) [#/Vol] 4.83 10*6/uL Normal 4.38-5.83 [facility] Comment on above: Performed By: #### L AB980 #### [facility] (DEFAULT) [address] [address] RBC Distribution 13.2 % Normal 10.9-14.3 [facility] Comment on above: Performed By: #### L AB980 #### [facility] (DEFAULT) [address] [address] Segs + Bands Auto 76.2 % Normal [facility] Comment on above: Performed By: #### L AB980 #### [facility] (DEFAULT) [address] [address] Segs + Bands,Absolute Auto 13.14 K/uL High 1.57-6.19 [facility] Comment on above: Performed By: #### L AB980 #### [facility] (DEFAULT) [address] [address] WBC (Bld) [#/Vol] 17.22 10*3/uL High 3.73-10.10 [facility] Comment on above: Performed By: #### L AB980 #### [facility] (DEFAULT) [address] [address] CHM 7 - EDon 06-09-2024 Anion gap [Moles/Vol] 11 mmol/L 7 - 17 mmol/L [facility] Chloride [Moles/Vol] 102 mmol/L 98 - 10 8 mmol/L [facility] CO2 [Moles/Vol] 26 mmol/L 21 - 31 mmol/L [facility] Creatinine [Mass/Vol] 0.92 mg/dL 0.70 - 1.30 mg/dL [facility] eGFR, CKD-EPI, Male - PINF [facility] Comment on above: Reported eGFR is bas ed on the CKD-EPI 2020 equation using creatinine, age, and sex. Glucose [Mass/Vol] 115 mg/dL High 70 - 99 mg/dL [facility] Interpretation and review of laboratory results Abnormal [facility] Osmolality Calc [Osmolality] 291 [facility] Potassium [Moles/Vol] 4.3 mmol/L 3.5 - 5.0 mmol/L [facility] Sodium [Moles/Vol] 135 mmol/L 135 - 145 mmol/L [facility] Urea nitrogen [Mass/Vol] 30 mg/dL High 7 - 25 mg/dL [facility] Urea nitrogen/Creatinine [Mass ratio] 33 mg/mg [facility] Anion gap [Moles/Vol] 11 mmol/L Normal 7-17 [facility] Comment on above: Performed By: #### C 7ED #### [facility] (DEFAULT) [address] [address] Chloride [Moles/Vol] 102 mmol/L Normal 98-108 [facility] Comment on above: Performed By: #### C 7ED #### [facility] (DEFAULT) [address] [address] CO2 [Moles/Vol] 26 mmol/L Normal 21-31 [facility] Comment on above: Performed By: #### C 7ED #### [facility] (DEFAULT) [address] [address] Creatinine [Mass/Vol] 0.92 mg/dL Normal 0.70-1.30 [facility] Comment on above: Performed By: #### C 7ED #### [facility] (DEFAULT) [address] [address] eGFR, CKD-EPI, Male > Normal >=60 [facility] Comment on above: Result Comment: Repo rted eGFR is based on the CKD-EPI 2020 equation using creatinine, age, and sex. Performed By: #### C 7ED #### [facility] (DEFAULT) [address] [address] Glucose [Mass/Vol] 115 mg/dL High 70-99 [facility] Comment on above: Performed By: #### C 7ED #### [facility] (DEFAULT) [address] [place] [address] Osmolality [Osmolality] 291 mosm/kg Normal 278-305 [facility] Comment on above: Performed By: #### C 7ED #### [facility] (DEFAULT) [address] [place] [address] Potassium [Moles/Vol] 4.3 mmol/L Normal 3.5-5.0 [facility] Comment on above: Performed By: #### C 7ED #### [facility] (DEFAULT) [address] [place] [address] Sodium [Moles/Vol] 135 mmol/L Normal 135-145 [facility] Comment on above: Performed By: #### C 7ED #### [facility] (DEFAULT) [address] [place] [address] Urea nitrogen [Mass/Vol] 30 mg/dL High 7-25 [facility] Comment on above: Performed By: #### C 7ED #### [facility] (DEFAULT) [address] [place] [address] Urea nitrogen/Creatinine [Mass ratio] 33 mg/mg Normal [facility] Comment on above: Performed By: #### C 7ED #### [facility] (DEFAULT) [address] [place] [address] IGAon 06-09-2024 IgA [Mass/Vol] 278 mg/dL Normal 66-433 [facility] Comment on above: Performed By: #### A NASR, ANGELA, ANCA, CRP, IGA #### [facility] (DEFAULT) [address] [place] [address] No Panel Informationon 06-09 [facility] CBC + DIFFon 05-31-2024 Baso # 0.04 x10EE3/UL Normal 0.00 - 0.10 [facility] Comment on above: Performed By: #### 2 02426 #### [facility],[address] [place], [place] [address] Basophils/100 WBC (Bld) 0.3 % Normal 0.0 - 2.0 [facility] Comment on above: Performed By: #### 2 61434 #### [facility],[address] [place] [address] CBC + DIFF Normal [facility] Comment on above: Result Comment: CBC- COMPLETE BLOOD COUNT Performed By: #### 2 34156 #### [facility],[address] [place] [address] EO # 0.10 x10EE3/UL Normal 0.00 - 0.50 [facility] Comment on above: Performed By: #### 2 40153 #### [facility],[address] [place] [address] Eosinophils/100 WBC (Bld) 0.7 % Normal 0.0 - 7.0 [facility] Comment on above: Performed By: #### 2 86883 #### [facility],[address] [place] [address] Erythrocyte distribution width (RBC) [Ratio] 13.0 % Normal 12.0 - 15.6 [facility] Comment on above: Performed By: #### 2 51809 #### [facility],[address] [place] [address] Hematocrit (Bld) [Volume fraction] 41.0 % Normal 40.0 - 52.0 [facility] Comment on above: Performed By: #### 2 17841 #### [facility],[address] [place] [address] Hemoglobin (Bld) [Mass/Vol] 14.3 g/dL Normal 13.0 - 17.5 [facility] Comment on above: Performed By: #### 2 19328 #### [facility],[address] [place] [address] Lymph # 3.31 x10EE3/UL High 0.80 - 2.80 [facility] Comment on above: Performed By: #### 2 85529 #### [facility],[address] [place] [address] Lymphocytes/100 WBC (Bld) 24.3 % Normal 20.0 - 45.0 [facility] Comment on above: Performed By: #### 2 03844 #### [facility],[address] [place] [address] MANUAL DIFF N/A Normal [facility] Comment on above: Performed By: #### 2 21008 #### [facility],[address] [place] [address] MCH (RBC) [Entitic mass] 30 pg Normal 27 - 33 [facility] Comment on above: Performed By: #### 2 09578 #### [facility],[address] [place] [address] MCHC 35 X10 3 Normal 32 - 36 [facility] Comment on above: Performed By: #### 2 14629 #### [facility],[address] [place] [address] MCV (RBC) [Entitic vol] 86 fL Normal 81 - 98 [facility] Comment on above: Performed By: #### 2 92858 #### [facility],[address] [place] [address] [place] # 0.68 x10EE3/UL Normal 0.20 - 1.00 [facility] Comment on above: Performed By: #### 2 47428 #### [facility],[address] [place] [address] MONOS % 5.0 % Normal 0.0 - 10.0 [facility] Comment on above: Performed By: #### 2 64977 #### [facility],[address] [place] [address] Morphology Epi (Bld) [Interp] N/A Normal [facility] Comment on above: Performed By: #### 2 48733 #### [facility],[address] [place] [address] Neut # 9.48 x10EE3/UL High 1.50 - 7.10 [facility] Comment on above: Performed By: #### 2 10081 #### [facility],[address] [place] [address] Neutrophils/100 WBC (Bld) 69.7 % Normal 46.0 - 76.0 [facility] Comment on above: Performed By: #### 2 69985 #### [facility],[address] [place] [address] PLATELET 314 x10EE3/UL Normal 150 - 450 [facility] Comment on above: Performed By: #### 2 67248 #### [facility],[address] [place] [address] Platelet mean volume (Bld) [Entitic vol] 6.7 fL Normal 6.4 - 10.5 [facility] Comment on above: Result Comment: AUTO MATED DIFFERENTIAL Performed By: #### 2 68462 #### [facility],[address] [place] [address] RBC 4.77 x 10EE6/UL Normal 4.50 - 6.00 [facility] Comment on above: Performed By: #### 2 90758 #### [facility],[address] [place] [address] WBC 13.6 x 10EE3/UL High 4.5 - 10.8 [facility] Comment on above: Performed By: #### 2 81540 #### [facility],[address] [place] [address] CMP with eGFRon 05-31-2024 AGE 39 years Normal [facility] Comment on above: Performed By: #### 2 60079 #### [facility],[address] [place] [address] Albumin [Mass/Vol] 2.9 g/dL Low 3.4 - 5.0 [facility] Comment on above: Performed By: #### 2 79892 #### [facility],[address] [place] [address] Albumin/Globulin [Mass ratio] 0.8 {ratio} Low 0.9 - 1.6 [facility] Comment on above: Performed By: #### 2 61269 #### [facility],[address] [place] [address] ALK PHOS 68 U/L Normal 46 - 116 [facility] Comment on above: Performed By: #### 2 37393 #### [facility],[address] [place] [address]77 ALT [Catalytic activity/Vol] 56 U/L Normal 16 - 63 [facility] Comment on above: Performed By: #### 2 54709 #### [facility],[address] [place] [address] Anion gap [Moles/Vol] 14 mmol/L Normal 10 - 20 [facility] Comment on above: Performed By: #### 2 47779 #### [facility],[address] [place] [address]684 AST [Catalytic activity/Vol] 20 U/L Normal 15 - 37 [facility] Comment on above: Performed By: #### 2 09555 #### [facility],[address] [place] [address]19 B/C RATIO 27 ratio Normal 0 - 30 [facility] Comment on above: Performed By: #### 2 81140 #### [facility],[address] [place] [address] Bilirubin [Mass/Vol] 0.4 mg/dL Normal 0.2 - 1.0 [facility] Comment on above: Performed By: #### 2 95634 #### [facility],[address] [place] [address] Calcium [Mass/Vol] 8.7 mg/dL Normal 8.5 - 10.1 [facility] Comment on above: Performed By: #### 2 99690 #### [place] [id number] Chloride [Moles/Vol] 102 mmol/L Normal 98 - 107 [facility] Comment on above: Performed By: #### 2 24099 #### [facility],[address] [place], [place] [phone] CMP with eGFR Normal [facility] Comment on above: Result Comment: COMP REHENSIVE METABOLIC PANEL Performed By: #### 2 37997 #### [place] [address] CO2 [Moles/Vol] 26.4 mmol/L Normal 21.0 - 32.0 [facility] Comment on above: Performed By: #### 2 44878 #### [place] [address] Creatinine [Mass/Vol] 0.93 mg/dL Normal 0.70 - 1.30 [facility] Comment on above: Performed By: #### 2 18004 #### [place] [address] GFR/1.73 sq M.predicted among non-blacks MDRD (S/P/Bld) [Vol rate/Area] mL/min/{1.73_m2} Normal 60 - 999 [facility] Comment on above: Performed By: #### 2 75665 #### [place] [address] Result Comment: ACCO RDING TO THE NATIONAL KIDNEY DISEASE EDUCATION PROGRAM(NKDE), A NORMAL eGFR IS A VALUE GREATER THAN OR EQUAL TO 60 ML/MIN/1.73 SQ METERS. CHRONIC KIDNEY DISEASE: <60mL/MIN/1.73 SQ METERS KIDNEY FAILURE: <15mL/MIN/1.73 SQ METERS THIS TEST SHOULD ONLY BE USED FOR PATIENTS 18 YEARS OF AGE AND OLDER. Globulin (S) [Mass/Vol] 3.8 g/dL Normal 1.5 - 3.8 [facility] Comment on above: Performed By: #### 2 34579 #### [facility],[address] [place] [address] Glucose [Mass/Vol] 161 mg/dL High 74 - 106 [facility] Comment on above: Performed By: #### 2 15794 #### [facility],[address] [place] [address] Potassium [Moles/Vol] 3.5 mmol/L Normal 3.5 - 5.1 [facility] Comment on above: Performed By: #### 2 39979 #### [facility],[address] [place] [address] Protein [Mass/Vol] 6.7 g/dL Normal 6.4 - 8.2 [facility] Comment on above: Performed By: #### 2 28835 #### [facility],[address] [place] [address]645 Sodium [Moles/Vol] 139 mmol/L Normal 136 - 145 [facility] Comment on above: Performed By: #### 2 44814 #### [facility],[address] [place] [address] Urea nitrogen [Mass/Vol] 25 mg/dL High 7 - 18 [facility] Comment on above: Performed By: #### 2 42523 #### [facility],[address] [place] [address] 34587 C-REACTIVE PROTEINon 024 CRP 0.83 mg/dl Normal 0.00 - 0.90 [facility] Comment on above: Performed By: #### 2 25708 #### [facility],[address] [place] [address]67 CBC + DIFFon 05-15-2024 Baso # 0.04 x10EE3/UL Normal 0.00 - 0.10 [facility] Comment on above: Performed By: #### 2 43772 #### [facility],[address] [place] [address] Basophils/100 WBC (Bld) 0.3 % Normal 0.0 - 2.0 [facility] Comment on above: Performed By: #### 2 54992 #### [facility],[address] [place] [address] CBC + DIFF Normal [facility] Comment on above: Result Comment: CBC- COMPLETE BLOOD COUNT Performed By: #### 2 78479 #### [facility],[address] [place] [address] EO # 0.07 x10EE3/UL Normal 0.00 - 0.50 [facility] Comment on above: Performed By: #### 2 91195 #### [facility],[address] [place] [address] Eosinophils/100 WBC (Bld) 0.6 % Normal 0.0 - 7.0 [facility] Comment on above: Performed By: #### 2 35692 #### [facility],[address] [place] [address] Erythrocyte distribution width (RBC) [Ratio] 13.4 % Normal 12.0 - 15.6 [facility] Comment on above: Performed By: #### 2 14394 #### [facility],[address] [place], [place] [address] Hematocrit (Bld) [Volume fraction] 46.0 % Normal 40.0 - 52.0 [facility] Comment on above: Performed By: #### 2 69388 #### [facility],[address] [place] [address] Hemoglobin (Bld) [Mass/Vol] 15.6 g/dL Normal 13.0 - 17.5 [facility] Comment on above: Performed By: #### 2 74573 #### [facility],[address] [place] [address] Lymph # 2.16 x10EE3/UL Normal 0.80 - 2.80 [facility] Comment on above: Performed By: #### 2 69359 #### [facility],[address] [place] [address] Lymphocytes/100 WBC (Bld) 15.9 % Low 20.0 - 45.0 [facility] Comment on above: Performed By: #### 2 70813 #### [facility],[address] [place] [address] MANUAL DIFF N/A Normal [facility] Comment on above: Performed By: #### 2 99461 #### [facility],[address] [place] [address] MCH (RBC) [Entitic mass] 30 pg Normal 27 - 33 [facility] Comment on above: Performed By: #### 2 99414 #### [facility],[address] [place] [address] MCHC 34 X10 3 Normal 32 - 36 [facility] Comment on above: Performed By: #### 2 91984 #### [facility],[address] [place] [address] MCV (RBC) [Entitic vol] 88 fL Normal 81 - 98 [facility] Comment on above: Performed By: #### 2 29087 #### [facility],[address] [place] [address] [place] # 0.82 x10EE3/UL Normal 0.20 - 1.00 [facility] Comment on above: Performed By: #### 2 70238 #### [facility],[address] [place] [address] MONOS % 6.1 % Normal 0.0 - 10.0 [facility] Comment on above: Performed By: #### 2 44795 #### [facility],[address] [place] [address] Morphology Epi (Bld) [Interp] N/A Normal [facility] Comment on above: Performed By: #### 2 62037 #### [facility],[address] [place] [address] Neut # 10.47 x10EE3/UL High 1.50 - 7.10 [facility] Comment on above: Performed By: #### 2 84493 #### [facility],[address] [place] [address] 216[address] Neutrophils/100 WBC (Bld) 77.2 % High 46.0 - 76.0 [facility] Comment on above: Performed By: #### 2 09296 #### [facility],[address] [place] [address] 487[address] PLATELET 276 x10EE3/UL Normal 150 - 450 [facility] Comment on above: Performed By: #### 2 54078 #### [facility],[address] [place] [address] 30397 Platelet mean volume (Bld) [Entitic vol] 7.3 fL Normal 6.4 - 10.5 [facility] Comment on above: Result Comment: AUTO MATED DIFFERENTIAL Performed By: #### 2 19723 #### [facility],[address] [place] [address] 13526 RBC 5.24 x 10EE6/UL Normal 4.50 - 6.00 [facility] Comment on above: Performed By: #### 2 81012 #### [facility],[address] [place] [address] WBC 13.6 x 10EE3/UL High 4.5 - 10.8 [facility] Comment on above: Performed By: #### 2 15274 #### [facility],[address] [place] [address] CMP with eGFRon 05-15-2024 AGE 38 years Normal [facility] Comment on above: Performed By: #### 2 43241 #### [facility],[address] [place] [address] 05724 Albumin [Mass/Vol] 3.0 g/dL Low 3.4 - 5.0 [facility] Comment on above: Performed By: #### 2 71770 #### [facility],[address] [place] [address]13 Albumin/Globulin [Mass ratio] 0.8 {ratio} Low 0.9 - 1.6 [facility] Comment on above: Performed By: #### 2 07438 #### [facility],[address] [place] [address] 85390 ALK PHOS 81 U/L Normal 46 - 116 [facility] Comment on above: Performed By: #### 2 74680 #### [facility],[address] [place] [address] 94253 ALT [Catalytic activity/Vol] 77 U/L High 16 - 63 [facility] Comment on above: Performed By: #### 2 64440 #### [facility],[address] [place] [address]689 Anion gap [Moles/Vol] 15 mmol/L Normal 10 - 20 [facility] Comment on above: Performed By: #### 2 66010 #### [facility],[address] [place] [address] 81165 AST [Catalytic activity/Vol] 28 U/L Normal 15 - 37 [facility] Comment on above: Performed By: #### 2 74399 #### [facility],[address] [place] [address] 03807 B/C RATIO 23 ratio Normal 0 - 30 [facility] Comment on above: Performed By: #### 2 65956 #### [facility],[address] [place] [address] 89502 Bilirubin [Mass/Vol] 0.4 mg/dL Normal 0.2 - 1.0 [facility] Comment on above: Performed By: #### 2 48709 #### [facility],[address] [place] [address] 26656 Calcium [Mass/Vol] 8.4 mg/dL Low 8.5 - 10.1 [facility] Comment on above: Performed By: #### 2 22149 #### [facility],[address] [place], [place] [phone] Chloride [Moles/Vol] 101 mmol/L Normal 98 - 107 [facility] Comment on above: Performed By: #### 2 83674 #### [facility],[address] [place], [place] [phone] CMP with eGFR Normal [facility] Comment on above: Result Comment: COMP REHENSIVE METABOLIC PANEL Performed By: #### 2 53348 #### [place] [address] CO2 [Moles/Vol] 25.9 mmol/L Normal 21.0 - 32.0 [facility] Comment on above: Performed By: #### 2 05962 #### [place] [address] Creatinine [Mass/Vol] 1.04 mg/dL Normal 0.70 - 1.30 [facility] Comment on above: Performed By: #### 2 31664 #### [place] [address] GFR/1.73 sq M.predicted among non-blacks MDRD (S/P/Bld) [Vol rate/Area] mL/min/{1.73_m2} Normal 60 - 999 [facility] Comment on above: Performed By: #### 2 58906 #### [place] [address] Result Comment: ACCO RDING TO THE NATIONAL KIDNEY DISEASE EDUCATION PROGRAM(NKDE), A NORMAL eGFR IS A VALUE GREATER THAN OR EQUAL TO 60 ML/MIN/1.73 SQ METERS. CHRONIC KIDNEY DISEASE: <60mL/MIN/1.73 SQ METERS KIDNEY FAILURE: <15mL/MIN/1.73 SQ METERS THIS TEST SHOULD ONLY BE USED FOR PATIENTS 18 YEARS OF AGE AND OLDER. Globulin (S) [Mass/Vol] 4.0 g/dL High 1.5 - 3.8 [facility] Comment on above: Performed By: #### 2 49146 #### [address] [address] Glucose [Mass/Vol] 168 mg/dL High 74 - 106 [facility] Comment on above: Performed By: #### 2 47646 #### [address] [address] Potassium [Moles/Vol] 3.5 mmol/L Normal 3.5 - 5.1 [facility] Comment on above: Performed By: #### 2 73882 #### [address] [address] Protein [Mass/Vol] 7.0 g/dL Normal 6.4 - 8.2 [facility] Comment on above: Performed By: #### 2 31127 #### [address] [address] Sodium [Moles/Vol] 138 mmol/L Normal 136 - 145 [facility] Comment on above: Performed By: #### 2 48049 #### [address] [address] Urea nitrogen [Mass/Vol] 24 mg/dL High 7 - 18 [facility] Comment on above: Performed By: #### 2 68385 #### [address] [address] GROUP A STREP BY PCR ([facility])on 05-15-2024 GROUP A STREP Negative Normal [facility] Comment on above: Result Comment: GROU P A B-HEMOLYTIC STREPTOCOCCUS (GAS)(S.PYOGENES) THIS ASSAY HAS BEEN VALIDATED IN THE [facility] FOR USE WITH THROAT SWAB SPECIMENS [...] RHEUMATIC FEVER (ARF). Performed By: #### 2 85413 #### [facility],[address] [place] [address] LYME DISEASE BY PCR [CCL]on 05-15-2024 B. burgdorferi PCR Not detected Normal [facility] Comment on above: Result Comment: NOT DETECTED [...] developed and its performance characteristics determined by [facility]. It has not been cleared or approved by the US Food and Drug Administration. This test was performed in a CLIA certified laboratory and is intended for clinical purposes. Performed By: [facility] [address] [place] [address] Mold Maker Apprentice: Jun Blackmon MD, PhD CLIA Number: [id number] [place] [id number] [place] [id number] Jeromy Chambers III, M.D. [id number] Performed By: #### 2 68508 #### [address] [address] RAPID STREPon 05-15-2024 S. pyogenes Ag IA Ql (Unsp spec) Rapid Strep NEG:GRP A STREP INTERNAL QC PASS EXTERNAL QC DONE? YES Normal [facility] Comment on above: Performed By: #### 2 39267 #### [place] [address] SEDRATEon 05-15-2024 SEDRATE 8 mm/hr Normal 0 - 20 [facility] Comment on above: Performed By: #### 2 59603 #### [place] [id number] APTTon 05-11-2024 aPTT Coag (Bld) [Time] 27.8 s Normal 25.4 - 38.4 [facility] Comment on above: Performed By: #### 2 95477 #### [facility],[address] [place] [address] C-REACTIVE PROTEINon 024 CRP 1.66 mg/dl High 0.00 - 0.90 [facility] Comment on above: Performed By: #### 2 35417 #### [facility],[address] [place] [address] CBC + DIFFon 05-11-2024 Baso # 0.03 x10EE3/UL Normal 0.00 - 0.10 [facility] Comment on above: Performed By: #### 2 41099 #### [facility],[address] [place] [address] Basophils/100 WBC (Bld) 0.4 % Normal 0.0 - 2.0 [facility] Comment on above: Performed By: #### 2 91032 #### [facility],[address] [place] [address] CBC + DIFF Normal [facility] Comment on above: Result Comment: CBC- COMPLETE BLOOD COUNT Performed By: #### 2 87697 #### [facility],[address] [place] [address] EO # 0.23 x10EE3/UL Normal 0.00 - 0.50 [facility] Comment on above: Performed By: #### 2 97650 #### [address] [address] Eosinophils/100 WBC (Bld) 2.7 % Normal 0.0 - 7.0 [facility] Comment on above: Performed By: #### 2 84919 #### [facility],[address] [place] [address] Erythrocyte distribution width (RBC) [Ratio] 13.4 % Normal 12.0 - 15.6 [facility] Comment on above: Performed By: #### 2 17739 #### [facility],[address] [place] [address] Hematocrit (Bld) [Volume fraction] 46.6 % Normal 40.0 - 52.0 [facility] Comment on above: Performed By: #### 2 09953 #### [facility],[address] [place], [place] [id number] Hemoglobin (Bld) [Mass/Vol] 15.6 g/dL Normal 13.0 - 17.5 [facility] Comment on above: Performed By: #### 2 70930 #### [facility],[address] [place] [address] Lymph # 2.08 x10EE3/UL Normal 0.80 - 2.80 [facility] Comment on above: Performed By: #### 2 58431 #### [facility],[address] [place] [address] Lymphocytes/100 WBC (Bld) 24.4 % Normal 20.0 - 45.0 [facility] Comment on above: Performed By: #### 2 80731 #### [facility],[address] [place] [address] MANUAL DIFF N/A Normal [facility] Comment on above: Performed By: #### 2 50101 #### [facility],[address] [place] [address] MCH (RBC) [Entitic mass] 29 pg Normal 27 - 33 [facility] Comment on above: Performed By: #### 2 28229 #### [place] [address] MCHC 34 X10 3 Normal 32 - 36 [facility] Comment on above: Performed By: #### 2 45631 #### [place] [address] MCV (RBC) [Entitic vol] 86 fL Normal 81 - 98 [facility] Comment on above: Performed By: #### 2 64608 #### [facility],[address] [place] [address] [place] # 0.48 x10EE3/UL Normal 0.20 - 1.00 [facility] Comment on above: Performed By: #### 2 37459 #### [place] [id number] MONOS % 5.6 % Normal 0.0 - 10.0 [facility] Comment on above: Performed By: #### 2 03508 #### [facility],[address] [place], [place] [id number] Morphology Epi (Bld) [Interp] N/A Normal [facility] Comment on above: Performed By: #### 2 56872 #### [facility],[address] [place] [address] Neut # 5.70 x10EE3/UL Normal 1.50 - 7.10 [facility] Comment on above: Performed By: #### 2 41384 #### [facility],[address] [place] [address] Neutrophils/100 WBC (Bld) 66.9 % Normal 46.0 - 76.0 [facility] Comment on above: Performed By: #### 2 43644 #### [facility],[address] [place] [address] PLATELET 271 x10EE3/UL Normal 150 - 450 [facility] Comment on above: Performed By: #### 2 57455 #### [address] [address] Platelet mean volume (Bld) [Entitic vol] 6.9 fL Normal 6.4 - 10.5 [facility] Comment on above: Result Comment: AUTO MATED DIFFERENTIAL Performed By: #### 2 13969 #### [facility],[address] [place] [address] RBC 5.43 x 10EE6/UL Normal 4.50 - 6.00 [facility] Comment on above: Performed By: #### 2 12008 #### [facility],[address] [place] [address] WBC 8.5 x 10EE3/UL Normal 4.5 - 10.8 [facility] Comment on above: Performed By: #### 2 23956 #### [facility],[address] [place] [address] CMP with eGFRon 05-11-2024 AGE 38 years Normal [facility] Comment on above: Performed By: #### 2 15910 #### [facility],[address] [place] [address] Albumin [Mass/Vol] 3.1 g/dL Low 3.4 - 5.0 [facility] Comment on above: Performed By: #### 2 45608 #### [facility],[address] [place] [address] Albumin/Globulin [Mass ratio] 0.7 {ratio} Low 0.9 - 1.6 [facility] Comment on above: Performed By: #### 2 94727 #### [facility],[address] [place] [address] ALK PHOS 97 U/L Normal 46 - 116 [facility] Comment on above: Performed By: #### 2 04653 #### [facility],[address] [place] [address] ALT [Catalytic activity/Vol] 91 U/L High 16 - 63 [facility] Comment on above: Performed By: #### 2 10251 #### [facility],[address] [place] [address] Anion gap [Moles/Vol] 14 mmol/L Normal 10 - 20 [facility] Comment on above: Performed By: #### 2 63408 #### [facility],[address] [place] [address] AST [Catalytic activity/Vol] 40 U/L High 15 - 37 [facility] Comment on above: Performed By: #### 2 51433 #### [facility],[address] [place] [address] B/C RATIO 19 ratio Normal 0 - 30 [facility] Comment on above: Performed By: #### 2 63479 #### [facility],[address] [place] [address] Bilirubin [Mass/Vol] 0.3 mg/dL Normal 0.2 - 1.0 [facility] Comment on above: Performed By: #### 2 61572 #### [facility],[address] [place] [address] Calcium [Mass/Vol] 9.1 mg/dL Normal 8.5 - 10.1 [facility] Comment on above: Performed By: #### 2 03177 #### [place] [phone] Chloride [Moles/Vol] 102 mmol/L Normal 98 - 107 [facility] Comment on above: Performed By: #### 2 43996 #### [place] [address] CMP with eGFR Normal [facility] Comment on above: Result Comment: COMP REHENSIVE METABOLIC PANEL Performed By: #### 2 44655 #### [place] [address] CO2 [Moles/Vol] 25.5 mmol/L Normal 21.0 - 32.0 [facility] Comment on above: Performed By: #### 2 24880 #### [facility],[address] [place] [address] Creatinine [Mass/Vol] 0.98 mg/dL Normal 0.70 - 1.30 [facility] Comment on above: Performed By: #### 2 48687 #### [facility],[address] [place] [address] GFR/1.73 sq M.predicted among non-blacks MDRD (S/P/Bld) [Vol rate/Area] mL/min/{1.73_m2} Normal 60 - 999 [facility] Comment on above: Performed By: #### 2 25105 #### [place] [address] Result Comment: ACCO RDING TO THE NATIONAL KIDNEY DISEASE EDUCATION PROGRAM(NKDE), A NORMAL eGFR IS A VALUE GREATER THAN OR EQUAL TO 60 ML/MIN/1.73 SQ METERS. CHRONIC KIDNEY DISEASE: <60mL/MIN/1.73 SQ METERS KIDNEY FAILURE: <15mL/MIN/1.73 SQ METERS THIS TEST SHOULD ONLY BE USED FOR PATIENTS 18 YEARS OF AGE AND OLDER. Globulin (S) [Mass/Vol] 4.2 g/dL High 1.5 - 3.8 [facility] Comment on above: Performed By: #### 2 19583 #### [facility],[address] [place] [address] Glucose [Mass/Vol] 143 mg/dL High 74 - 106 [facility] Comment on above: Performed By: #### 2 52153 #### [facility],[address] [place] [address] Potassium [Moles/Vol] 3.5 mmol/L Normal 3.5 - 5.1 [facility] Comment on above: Performed By: #### 2 48811 #### [facility],[address] [place] [address] Protein [Mass/Vol] 7.3 g/dL Normal 6.4 - 8.2 [facility] Comment on above: Performed By: #### 2 62370 #### [facility],[address] [place] [address] Sodium [Moles/Vol] 138 mmol/L Normal 136 - 145 [facility] Comment on above: Performed By: #### 2 77481 #### [facility],[address] [place] [address] Urea nitrogen [Mass/Vol] 19 mg/dL High 7 - 18 [facility] Comment on above: Performed By: #### 2 36395 #### [facility],[address] [place] [address] CORONAVIRUS (SARS) ANTIGEN T ESTon 05-11-2024 EXTERNAL QC DONE? YES Normal [facility] Comment on above: Performed By: #### 2 68163 #### [facility],[address] [place] [address] INTERNAL CONTROL PASS Normal [facility] Comment on above: Performed By: #### 2 35668 #### [facility],[address] [place] [address] SARS ANTIGEN Negative Normal NORMAL: NEGATIVE [facility] Comment on above: Performed By: #### 2 43803 #### [facility],[address] [place] [address] SEND TO ? NO Normal [facility] Comment on above: Result Comment: SARS -CoV-2 THIS TEST IS BEING USED UNDER THE FDA EUA PROCEDURE. THIS ASSAY HAS BEEN VALIDATED AT [facility] FOR USE WITH NASAL AND NASOPHARYNGEAL SWAB [...] PUBLIC HEALTH AUTHORITIES. Performed By: #### 2 20819 #### [facility],[address] [place] [address] CULTURE BLOOD [JS]on Microscopic examination of blood, culture CULTURE BLOOD [JS] [facility] FOR SCANNED REPORT 05/17/24.1110.DNP.COMPLETE Normal [facility] Comment on above: Performed By: #### 2 08002 #### [facility],[address] [place] [address] Microscopic examination of blood, culture CULTURE BLOOD [JS] _BLOOD CULTURE_ [facility] AND ATTACH[facility] FOR SCANNED REPORT 05/17/24.1111.DNP.COMPLETE Normal [facility] Comment on above: Performed By: #### 2 04421 #### [facility],[address] [place] [address] LYME DISEASE BY PCRon 2023 BORRELIA SP. PCR Not detected Normal [facility] Comment on above: Order Comment: Speci men Type: BLOOD SPECIMEN Ordering Facility: [facility] Address: [address] [place] [address] Result Comment: NOT DETECTED - A negative [...] developed and its performance characteristics determined by [facility]. It has not been cleared or approved by the [place] Food and Drug Administration. This test was performed in a CLIA certified laboratory and is intended for clinical purposes. Performed By: [facility] [address] [place] [address] Mold Maker Apprentice: Jun Blackmon MD, PhD CLIA Number: [id number] Performed By: #### L YPCR #### [facility] CLIA [id number] [address] [place] [address] Specimen source Nom (Unsp spec) Serum Normal [facility] Comment on above: Order Comment: Speci men Type: BLOOD SPECIMEN Ordering Facility: [facility] Address: [address] [place] [address] Performed By: #### L YPCR #### [facility] CLIA [id number] [address] [place] [address] PROTHROMBIN TIME AND INRon 0 05-11-2024 INR Coag (PPP) [Relative time] 1.0 {INR} Normal 0.8 - 1.2 [facility] Comment on above: Result Comment: T HE [...] MECHANICAL HEART VALVES Performed By: #### 2 63788 #### [facility],[address] [place] [address] PROTHROMBIN TIME AND INR Normal [facility] Comment on above: Result Comment: PROT HROMBIN TIME AND INR Performed By: #### 2 76330 #### [facility],[address] [place] [address] PT-COUMADIN 11.8 sec Normal 9.3 - 14.1 [facility] Comment on above: Performed By: #### 2 32256 #### [facility],[address] [place], [place] [address] SEDRATEon 05-11-2024 SEDRATE 12 mm/hr Normal 0 - 20 [facility] Comment on above: Performed By: #### 2 84912 #### [facility],[address] [place], [place] [address] EMERGENCY DEPARTMENT REPORTo n 12-03-2019 EMERGENCY [place]PART[place] [address] HEALTH INFORMATION MANAGEMENT EMERGENCY DEPARTMENT REPORT Patient: KRYSTEN CROOK V JANENE DALE M.D. [id number] M Status: DEP ER ED Date of Service: 12/03/19 CHIEF COMPLAINT: Cough, congestion, fever, and chills. HISTORY OF PRESENT ILLNESS: 34-year-old male just returned today from [place] where he was visiting his sister who [...] more immunocompromise. TREATMENT: Antipyretics, lots of fluids, doda-rea-hmtqzxu Sudafed or Mucinex. Report#: Dict ID [id number] / Int ID [id number] 12/04/19 1214 JANENE DALE M.D. cc: JANENE DALE M.D.; No Physician << Signature on File>> Reported By: JANENE DALE M.D. Signed By: JANENE DALE M.D. Tests performed at: [address] [address] [facility] FLU PCRon 12-03-2019 FLU A (PCR) Negative Normal [facility] Comment on above: Order Comment: What is the source+ SWAB Performed By: #### L 400.0015 #### [facility] [address] [place] [address] FLU B (PCR) Positive Normal [facility] Comment on above: Order Comment: What is the source+ SWAB Result Comment: Requires Droplet Precautions Performed By: #### L 400.0015 #### [facility] [address] [place] [address] Vital Signs Date Time Vital Sign Value Performing Clinician Facility 05-24-2025 08:57-0400 Body height 172.72 cm Tavon Rollins [employer] TRIMM[employer] MACHINE [employer]TER[employer]C Work Phone: [facility] 05-24-2025 08:57-0400 Body mass index (BMI) [Ratio] 46.8 kg/m2 Tavon Rollins [employer] TRIMMING MACHINE SETTER-C Work Phone: [facility] 05-24-2025 08:57-0400 Body weight 139.87 kg Tavon Rollins [employer] TRIMMING MACHINE SETTER[employer]C Work Phone: [facility] 05-24-2025 08:57-0400 Diastolic blood pressure 81 mm[Hg] Tavon Rollins [employer] TRIMMING MACHINE SETTER-C Work Phone: [facility] 05-24-2025 08:57-0400 Heart rate 74 /min Tavon Rollins [employer] TRIMMING MACHINE SETTER-C Work Phone: [facility] 05-24-2025 08:57-0400 Respiratory rate 16 /min Tavon Rollins [employer] TRIMMING MACHINE SETTER-C Work Phone: [facility] 05-24-2025 08:57-0400 SaO2% (BldA) [Mass fraction] 94 % Tavon Rollins [employer] TRIMMING MACHINE SETTER-C Work Phone: [facility] 05-24-2025 08:57-0400 Systolic blood pressure 115 mm[Hg] Tavon Rollins [employer] TR[employer]ING MACHINE SETTER-C Work Phone: [facility] 01-24-2025 08:46-0400 Body height 172.7 cm Huy Marquez MD Work Phone: [facility] 01-24-2025 08:46-0400 Body mass index (BMI) [Ratio] 45.62 kg/m2 Huy Marquez MD Work Phone: [facility] 01-24-2025 08:46-0400 Body weight 136.1 kg Huy Marquez MD Work Phone: [facility] 01-24-2025 08:46-0400 Diastolic blood pressure 78 mm[Hg] Huy Marquez MD Work Phone: [facility] 01-24-2025 08:46-0400 Heart rate 60 /min Huy Marquez MD Work Phone: [facility] 01-24-2025 08:46-0400 SaO2% (BldA) [Mass fraction] 94 % Huy Marquez MD Work Phone: [facility] 01-24-2025 08:46-0400 Systolic blood pressure 110 mm[Hg] Huy Marquez MD Work Phone: [facility] 10-26-2024 10:48-0500 Diastolic blood pressure 90 mm[Hg] Huy Marquez MD Work Phone: [facility] 10-26-2024 10:48-0500 Systolic blood pressure 140 mm[Hg] Huy Marquez MD Work Phone: [facility] 10-26-2024 10:30-0500 Body height 172.7 cm Huy Marquez MD Work Phone: [facility] 10-26-2024 10:30-0500 Body mass index (BMI) [Ratio] 44.65 kg/m2 Huy Marquez MD Work Phone: [facility] 10-26-2024 10:30-0500 Body weight 133.2 kg Huy Marquez MD Work Phone: [facility] 10-26-2024 10:30-0500 Heart rate 72 /min Huy Marquez MD Work Phone: [facility] 10-26-2024 10:30-0500 SaO2% (BldA) [Mass fraction] 96 % Huy Marquez MD Work Phone: [facility] 08-24-2024 08:24-0500 Diastolic blood pressure 83 mm[Hg] Rob Alba DPM Work Phone: [facility] 08-24-2024 08:24-0500 Heart rate 97 /min Rob Alba DPM Work Phone: [facility] 08-24-2024 08:24-0500 Systolic blood pressure 110 mm[Hg] Rob Alba DPM Work Phone: [facility] 08-24-2024 08:16-0500 Body temperature 97.3 [degF] Rob Alba DPM Work Phone: [facility] 08-24-2024 08:16-0500 Respiratory rate 16 /min Rob Alba DPM Work Phone: [facility] 08-10-2024 08:17-0400 Diastolic blood pressure 85 mm[Hg] Rob Alba DPM Work Phone: [facility] Comment on above: asymptomatic, recheck b/p 08-10-2024 08:17-0400 Heart rate 84 /min Rob Alba DPM Work Phone: [facility] 08-10-2024 08:17-0400 Systolic blood pressure 120 mm[Hg] Rob Alba DPM Work Phone: [facility] Comment on above: asymptomatic, recheck b/p 08-10-2024 08:10-0400 Body temperature 97.59 [degF] Rob Alba DPM Work Phone: [facility] 08-10-2024 08:10-0400 Respiratory rate 6 /min Rob Alba DPM Work Phone: [facility] 08-03-2024 08:37-0400 Body temperature 97.5 [degF] Rob Alba DPM Work Phone: [facility] 08-03-2024 08:37-0400 Diastolic blood pressure 83 mm[Hg] Rob Alba DPM Work Phone: [facility] Comment on above: bp re-check 118/77 08-03-2024 08:37-0400 Heart rate 86 /min Rob Alba DPM Work Phone: [facility] 08-03-2024 08:37-0400 Respiratory rate 18 /min Rob Alba DPM Work Phone: [facility] 08-03-2024 08:37-0400 Systolic blood pressure 135 mm[Hg] Rob Alba DPM Work Phone: [facility] Comment on above: bp re-check 118/77 08-02-2024 09:16-0400 Diastolic blood pressure 86 mm[Hg] Huy Marquez MD Work Phone: [facility] 08-02-2024 09:16-0400 Systolic blood pressure 125 mm[Hg] Huy Marquez MD Work Phone: [facility] 08-02-2024 09:11-0400 Body mass index (BMI) [Ratio] 43.44 kg/m2 Huy Marquez MD Work Phone: [facility] 08-02-2024 09:11-0400 Body weight 129.6 kg Huy Marquez MD Work Phone: [facility] 08-02-2024 09:11-0400 Heart rate 79 /min Huy Marquez MD Work Phone: [facility] 08-02-2024 09:11-0400 SaO2% (BldA) [Mass fraction] 97 % Huy Marquez MD Work Phone: [facility] 07-27-2024 08:37-0400 Body temperature 97.59 [degF] Rob Alba DPM Work Phone: [facility] 07-27-2024 08:37-0400 Diastolic blood pressure 94 mm[Hg] Rob Alba DPM Work Phone: [facility] Comment on above: pt asyptomatic 07-27-2024 08:37-0400 Heart rate 73 /min Rob Alba DPM Work Phone: [facility] 07-27-2024 08:37-0400 Respiratory rate 18 /min Rob Alba DPM Work Phone: [facility] 07-27-2024 08:37-0400 Systolic blood pressure 137 mm[Hg] Rob Alba DPM Work Phone: [facility] Comment on above: pt asyptomatic 07-20-2024 09:07-0400 Body temperature 97.81 [degF] Rob Alba DPM Work Phone: [facility] 07-20-2024 09:07-0400 Diastolic blood pressure 86 mm[Hg] Rob Alba DPM Work Phone: [facility] 07-20-2024 09:07-0400 Heart rate 98 /min Rob Alba DPM Work Phone: [facility] 07-20-2024 09:07-0400 Respiratory rate 16 /min Rob Alba DPM Work Phone: [facility] 07-20-2024 09:07-0400 Systolic blood pressure 119 mm[Hg] Rob Alba DPM Work Phone: [facility] 07-13-2024 08:19-0400 Body height 172.7 cm Rob Alba DPM Work Phone: [facility] 07-13-2024 08:19-0400 Body mass index (BMI) [Ratio] 39.53 kg/m2 Rob Alba DPM Work Phone: [facility] 07-13-2024 08:19-0400 Body temperature 97.9 [degF] Rob Alba DPM Work Phone: [facility] 07-13-2024 08:19-0400 Body weight 117.94 kg Rob Alba DPM Work Phone: [facility] 07-13-2024 08:19-0400 Diastolic blood pressure 76 mm[Hg] Rob Alba DPM Work Phone: [facility] 07-13-2024 08:19-0400 Heart rate 88 /min Rob Alba DPM Work Phone: [facility] 07-13-2024 08:19-0400 Respiratory rate 16 /min Rob Alba DPM Work Phone: [facility] 07-13-2024 08:19-0400 Systolic blood pressure 123 mm[Hg] Rob Alba DPM Work Phone: [facility] 07-07-2024 15:16-0400 Diastolic blood pressure 92 mm[Hg] Tanmay Do APRN.MANAGER SYSTEMS Work Phone: [facility] Comment on above: re-check 07-07-2024 15:16-0400 Systolic blood pressure 128 mm[Hg] Tanmay Hi STUDIO OPERATIONS ENGINEER IN CHARGE.MA[employer]GER SYSTEMS Work Phone: [facility] Comment on above: re-check 07-07-2024 14:42-0400 Body temperature 98.91 [degF] Tanmay Hi STUDIO OPERATIONS ENGINEER IN CHARGE.MANAGER SYSTEMS Work Phone: [facility] 07-07-2024 14:42-0400 Body weight 127.46 kg Tanmay Hi STUDIO OPERATIONS ENGINEER IN CHARGE.MANAGER SYSTEMS Work Phone: [facility] 07-07-2024 14:42-0400 Heart rate 80 /min Tanmay Hi STUDIO OPERATIONS ENGINEER IN CHARGE.MANAGER SYSTEMS Work Phone: [facility] 07-07-2024 14:42-0400 SaO2% (BldA) [Mass fraction] 97 % Tanmay Hi STUDIO OPERATIONS ENGINEER IN CHARGE.MANAGER SYSTEMS Work Phone: [facility] 06-29-2024 14:13-0400 Body temperature 98.2 [degF] Tanmay Hi STUDIO OPERATIONS ENGINEER IN CHARGE.MANAGER SYSTEMS Work Phone: [facility] 06-29-2024 14:13-0400 Diastolic blood pressure 88 mm[Hg] Tanmay Hi STUDIO OPERATIONS ENGINEER IN CHARGE.MANAGER SYSTEMS Work Phone: [facility] 06-29-2024 14:13-0400 Heart rate 89 /min Tanmay Hi STUDIO OPERATIONS ENGINEER IN CHARGE.MANAGER SYSTEMS Work Phone: [facility] 06-29-2024 14:13-0400 Respiratory rate 18 /min Tanmay Hi STUDIO OPERATIONS ENGINEER IN CHARGE.MANAGER SYSTEMS Work Phone: [facility] 06-29-2024 14:13-0400 SaO2% (BldA) [Mass fraction] 96 % Tanmay Hi STUDIO OPERATIONS ENGINEER IN CHARGE.MANAGER SYSTEMS Work Phone: [facility] 06-29-2024 14:13-0400 Systolic blood pressure 122 mm[Hg] Tanmay Hi STUDIO OPERATIONS ENGINEER IN CHARGE.MANAGER SYSTEMS Work Phone: [facility] 06-10-2024 14:29-0400 Diastolic blood pressure 80 mm[Hg] Vargas Woods MD Work Phone: [facility] 06-10-2024 14:29-0400 Systolic blood pressure 138 mm[Hg] Vargas Woods MD Work Phone: [facility] 06-10-2024 14:15-0400 Body temperature 98.71 [degF] Vargas Woods MD Work Phone: [facility] 06-10-2024 14:15-0400 Heart rate 95 /min Vargas Woods MD Work Phone: [facility] 06-10-2024 14:15-0400 Respiratory rate 20 /min Vargas Woods MD Work Phone: [facility] 06-10-2024 14:15-0400 SaO2% (BldA) [Mass fraction] 96 % Vargas Woods MD Work Phone: [facility] 06-10-2024 12:00-0400 Body weight 128.78 kg Vargas Woods MD Work Phone: [facility] Encounters Encounter Date Encounter Type Care Provider Facility Start: 07-02-2025 ambulatory Out of Town Doctor Faci lity:[facility] Start: 06-20-2025 ambulatory Out of Town Doctor Faci lity:[facility] Start: 05-24-2025 End: 05-24-[address] Jabari Reese MD -[facility] Work Phone: Start: 05-24-2025 End: 05-24-2025 ambulatory Tavon Rollins BRUSH TRIMMING MACHINE SETTER-C Work Phone: -[facility] Start: 04-24-2025 End: 04-24-2025 ambulatory Tavon Rollins BRUSH TRIMMING MACHINE SETTER-C Work Phone: [facility] Start: 04-24-2025 End: 04-24-[address] Edith Gore MD -[facility] Work Phone: Start: 04-24-2025 End: 04-24-2025 ambulatory Tavon Rollins NP Facility:[facility] Start: 04-07-2025 End: 04-07-2025 Emergency department patient visit HUY MARQUEZ Facility:[id number] Start: 04-06-2025 End: 04-06-2025 ambulatory EDITH GORE [facility] Start: 03-26-2025 End: 03-26-2025 ambulatory Tavon Rollins BRUSH TRIMMING MACHINE SETTER-C Work Phone: [facility] Work Phone: Start: 03-26-2025 End: 03-26-[address] Cayla Logan MD -[facility] Work Phone: Start: 03-26-2025 End: 03-26-2025 ambulatory Cayla Logan Facility:[facility] Start: 03-15-2025 End: 03-15-2025 Refill Huy Marquez MD Work Phone: [facility] Comment on above: Refill Request Start: 01-24-2025 End: 01-24-2025 Patient encounter procedure Huy Marquez MD Work Phone: [facility] Comment on above: Hypertension, unspec ified type (Primary Dx); IgA nephropathy; IgA mediated leukocytoclastic vasculitis Start: 01-24-2025 End: 01-24-2025 ambulatory HUY MARQUEZ Facility:[id number] Start: 12-26-2024 End: 12-26-2024 [facility] Start: 12-25-2024 End: 12-25-2024 ambulatory Tavon Rollins BRUSH TRIMMING MACHINE SETTER-C Work Phone: [facility] Work Phone: Start: 12-25-2024 End: 12-25-[address] Edith Gore MD -Laboratory, [facility] Work Phone: Start: 12-25-2024 End: 12-25-2024 ambulatory Tavon Rollins NP Facility:[facility] Start: 12-21-2024 End: 12-21-[address] CAYLA LOGAN MD Facility:[facility] Start: 11-27-2024 End: 11-27-2024 Refill Huy Marquez MD Work Phone: [facility] Comment on above: Refill Request Start: 10-26-2024 End: 10-26-2024 Patient encounter procedure Huy Marquez MD Work Phone: [facility] Comment on above: Nicotine dependence, uncomplicated, unspecified nicotine product type (Primary Dx); IgA mediated leukocytoclastic vasculitis (HCC); Hypertension, unspecified type Start: 10-26-2024 End: 10-26-2024 ambulatory HUY MARQUEZ Facility:[id number] Start: 10-25-2024 End: 10-25-2024 Telephone encounter Huy Marquez MD Work Phone: [facility] Comment on above: Appointment (10/25/24 ); No Show Start: 10-20-2024 End: 10-20-2024 Telephone encounter Huy Marquez MD Work Phone: [facility] Comment on above: Appointment Start: 08-29-2024 End: 08-29-2024 ambulatory Tavon Rollins NP Facility:[facility] Start: 08-24-2024 End: 08-24-2024 Patient encounter procedure Rob Alba DPM Work Phone: [facility] Comment on above: IgA mediated [...] Start: 08-24-2024 End: 08-24-2024 ambulatory ROB ALBA Facility:[id number] Start: 08-10-2024 End: 08-10-2024 Patient encounter procedure Rob Alba DPM Work Phone: [facility] Comment on above: IgA mediated [...] Start: 08-10-2024 End: 08-10-2024 ambulatory ROB ALBA Facility:[id number] Start: 08-03-2024 End: 08-03-2024 Patient encounter procedure Rob Alba DPM Work Phone: [facility] Comment on above: IgA mediated [...] Start: 08-03-2024 End: 08-03-2024 ambulatory ROB ALBA Facility:[id number] Start: 08-02-2024 End: 08-02-2024 Patient encounter procedure Huy Marquez MD Work Phone: [facility] Comment on above: Wellness examination (Primary Dx); Screening for depression; Encounter for screening examination for other mental health and behavioral disorders; Encounter for immunization; Nicotine dependence, uncomplicated, unspecified nicotine product type; IgA mediated leukocytoclastic vasculitis (HCC) Start: 08-02-2024 End: 08-02-2024 Patient encounter status Huy Marquez MD Work Phone: [facility] Work Phone: Start: 08-02-2024 End: 08-02-2024 ambulatory HUY MARQUEZ Facility:[id number] Start: 07-27-2024 End: 07-27-2024 Patient encounter procedure Rob Alba DPM Work Phone: [facility] Comment on above: IgA mediated leukocy toclastic vasculitis (HCC) (Primary Dx); 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); 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); Chronic venous hypertension (idiopathic) with ulcer of bilateral lower extremity (CODE) (HCC); Secondary lymphedema Start: 07-27-2024 End: 07-27-2024 ambulatory ROB GONZALEZMENDEZ Facility:[id number] Start: 07-20-2024 End: 07-20-2024 ambulatory ROB GONZALEZDE ALBA Facility:[id number] Start: 07-20-2024 End: 07-20-2024 Patient encounter procedure Rob Avni Alba DPM Work Phone: [facility] Comment on above: IgA mediated [...] procedure Rob Avni Alba DPM Work Phone: [facility] Comment on above: IgA mediated leukocy toclastic vasculitis (HCC) (Primary Dx); 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); 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); Chronic venous hypertension (idiopathic) with ulcer of bilateral lower extremity (CODE) (HCC); Secondary lymphedema Start: 07-13-2024 End: 07-13-2024 ambulatory ROB ALBA Facility:[id number] Start: 07-07-2024 End: 07-07-2024 ambulatory TANMAY DO Facility:[id number] Start: 07-07-2024 End: 07-07-2024 Patient encounter procedure Tanmay Do STUDIO OPERATIONS ENGINEER IN CHARGE.MANAGER SYSTEMS Work Phone: [facility] Comment on above: Vasculitis (HCC) (Pr imary Dx) Start: 06-29-2024 End: 06-29-2024 ambulatory TANMAY DO Facility:[id number] Start: 06-29-2024 End: 06-29-2024 Patient encounter procedure Tanmay Cesario Do APRN.CNP Work Phone: [facility] Comment on above: Wound infection (Evelyn handy Dx) Start: 06-24-2024 Emergency department patient visit TAMRA DAVILA Facility:[id number] Start: 06-19-2024 End: 06-19-2024 Emergency department patient visit TAVON GARCIA [facility] Start: 06-09-2024 End: 06-10-2024 ambulatory [facility] Facility:[facility] Start: 06-09-2024 End: 06-10-2024 Emergency department patient visit Vargas Woods MD Work Phone: [facility] Start: 06-02-2024 End: 06-03-2024 [facility] Start: 05-31-2024 End: 05-31-2024 Emergency department patient visit TAVON GARCIA [facility] Start: 05-15-2024 End: 05-15-2024 Emergency department patient visit SEAN DELGADO [facility] Start: 05-11-2024 End: 05-11-2024 Emergency department patient visit TAVON GARCIA [facility] Procedures Date Procedure Procedure Detail Performing Clinician Start: 04-24-2025 Urnls dip stick/tabl et reagent auto microscopy Tavon Rollins BRUSH TRIMMING MACHINE SETTER-C Work Phone: Start: 03-26-2025 Parathyroid hormone measurement Tavon Rollins BRUSH TRIMMING MACHINE SETTER-C Work Phone: Start: 03-26-2025 Vitamin D, 25-hydrox y measurement Tavon Rollins BRUSH TRIMMING MACHINE SETTER-C Work Phone: Comment on above: Vitamin D StatusDefi ciency: <20 ng/mL (50nmol/L)Insufficiency: 20-30 ng/mL (50-75 nmol/L)Sufficiency: 30-100 ng/mL (75-250 nmol/L)Toxicity: >100 ng/mL (>250 nmol/L) Start: 12-25-2024 Urnls dip stick/tabl et reagent auto microscopy Tavon Ria BRUSH TRIMMING MACHINE SETTER-C Work Phone: Start: 08-02-2024 Adult depression scr eening assessment Huy Marquez MD Work Phone: Start: 06-10-2024 EXTRA MICRO Vargas almeida MD Work Phone: Start: 06-10-2024 Urinalysis microscopic only [place] Rajendra STUDIO OPERATIONS ENGINEER IN CHARGE-MANAGER SYSTEMS Work Phone: Start: 06-10-2024 URINALYSIS REFLEX TO CULTURE Vargas Woods MD Work Phone: Start: 06-10-2024 Urnls dip stick/tabl et rgnt auto w/o microscopy Angela Rajendra STUDIO OPERATIONS ENGINEER IN CHARGE-MANAGER SYSTEMS Work Phone: Start: 06-10-2024 Sedimentation rate r [...] Leandra Cohn MD Work Phone: Start: 06-09-2024 GODFREY Munguia MD Work Phone: Plan of Treatment Date Care Activity Detail Author Start: 01-24-2026 Annual PCP Team Operations And Intelligence Assistant h[place] Disease Visit Annual PCP Team Chronic Disease Visit [facility] Start: 01-24-2026 BP Controlled (<130/80) BP Con trolled (<130/80) [facility] Start: 10-26-2025 Annual PCP Team Operations And Intelligence Assistant haleigh Disease Visit Annual PCP Team Chronic Disease Visit [facility] Start: 08-08-2025 End: 08-08-2025 Patient encounter procedure 08/08/2025 8:00 AM EDT Office Visit [address] [place], [place] [id number] Huy Marquez MD [address] [place] [address] [place], [place] [phone] Return in about 6 months (around 07/26/2025) for annual check-up. [facility] Comment on above: Return in about 6 mo nths (around 07/26/2025) for annual check-up. Start: 08-02-2025 Annual PCP Team Operations And Intelligence Assistant haleigh Disease Visit Annual PCP Team Chronic Disease Visit [facility] Start: 08-02-2025 Anxiety Screening Anxiety Screening [facility] Start: 08-02-2025 Depression Screening Depression Scre [facility] Start: 06-18-2025 Influenza vaccination Influenz a Vaccine (Season Ended) [facility] Start: 01-24-2025 End: 01-24-2025 Patient encounter procedure 01/24/2025 9:00 AM EDT Office Visit [address] [place], [place] [phone] Huy Marquez MD [address] [place] [address] [place], [place] [phone] Return in about 3 months (around 01/24/2025) for hypertension [facility] Comment on above: Return in about 3 mo nths (around 01/24/2025) for hypertension Start: 10-26-2024 End: 10-26-2024 Patient encounter procedure 10/26/2024 10:40 AM EST Office Visit [address] [place], [place] [address] Huy Marquez MD [address] [place] [address] [place], [place] [address] 3 month FU [facility] Comment on above: 3 month FU Start: 10-25-2024 End: 10-25-2024 Patient encounter procedure 10/25/2024 9:00 AM EST Office Visit [address] [place] [address] Huy Marquez MD [address] [place] [address] [place], [place] [address] 3 month f/u [facility] Comment on above: 3 month f/u Start: 10-24-2024 End: 10-24-2024 Patient encounter procedure 10/24/2024 8:00 AM EST Office Visit Rheumatology [address] [address] Radha Hurtado MD [address] [place] [address] [facility] Comment on above: [facility] Start: 08-24-2024 End: 08-24-2024 Patient encounter procedure 08/24/2024 8:00 AM EST Office Visit [facility] [address] [address] Rob Alba DPM [address] [address] RLE [facility] Comment on above: RLE Start: 08-10-2024 End: 08-10-2024 Patient encounter procedure 08/10/2024 8:00 AM EDT Office Visit [facility]ound [address] [id number] Rob Alba DPM [address] [id number] BLE [facility] [place] Comment on above: BLE Start: 08-08-2024 End: 08-08-2024 Patient encounter procedure 08/08/2024 9:00 AM EDT Office Visit Rheumatology [address] [address] Radha Hurtado MD [address] [place] [address] iga vasculitis Rheumatology Comment on above: iga vasculitis Start: 08-03-2024 End: 08-03-2024 Patient encounter procedure 08/03/2024 8:30 AM EDT Office Visit [address] [address] Rob Alba DPM [address] [phone] RT/LT lower ext. [facility] Comment on above: RT/LT lower ext. Start: 08-02-2024 End: 08-02-2024 Patient encounter procedure 08/02/2024 9:20 AM EDT Office Visit [facility] [address] [place] [address] [place], [place] [phone] Huy Marquez MD [address] [place] [address] [place], [place] [phone] est PCP [facility] Comment on above: est PCP Start: 07-27-2024 End: 07-27-2024 Patient encounter procedure 07/27/2024 8:30 AM EDT Office Visit [facility]ound [address] [phone] Rob Alba DPM [address] [phone] BLE [facility] [place] Comment on above: BLE Start: 07-20-2024 End: 07-20-2024 Patient encounter procedure 07/20/2024 9:00 AM EDT Office Visit [facility] [address] [place] [address] Rob Alba, BELKIS [address] [address] BLE ulcers [facility] Comment on above: BLE ulcers Start: 07-13-2024 End: 07-13-2024 Patient encounter procedure 07/13/2024 8:30 AM EDT Office Visit [facility] [address] [facility] [place] [address] Rob Alba DPM [address] [address] BLE [facility] Comment on above: BLE Start: 06-18-2024 Covid-19 Vaccine ( season) Covid-19 Vaccine ( season) [facility] Start: 06-18-2024 Covid-19 Vaccine ( season) Covid-19 Vaccine ( season) [facility] Start: 06-18-2024 Influenza vaccination INFLUENZA VACC INE (#1) [facility] Start: 06-18-2023 COVID-19 VACCINE ( season) COVID-19 VACCINE ( season) [facility] Start: 2021 Lipid panel Lipid Screening [facility] Start: 2005 Hepatitis B vaccination HEP B VACCINE (1 of 3 - 19+ 3-dose series) [facility] Start: 2005 Hepatitis B Vaccine (1 of 3 - 19+ 3-dose series) Hepatitis B Vaccine (1 of 3 - 19+ 3-dose series) [facility] Start: 2005 Third diphtheria, tetanus and acellular pertussis (DTaP) vaccination TDAP (ADULT) [facility] Start: 2005 Urine microalbumin profile DTaP,Tdap,Td Vaccine (1 - Tdap) [facility] Start: 2004 Anxiety Screening Anxiety Screening [facility] Start: 2004 BP Controlled (<130/80) BP Con trolled (<130/80) [facility] Start: 2004 Depression Screening Depression Scre ening [facility] Start: 2004 HIV screening HIV Screening [facility] Start: 2001 HIV screening HIV SCREENING DISCUSSION [facility] Start: 1986 Hepatitis C screening HEPATITI S C VIRUS SCREENING [facility] Start: [address] [facility] End: 06-10-2024 Acute hepatitis 2000 panel - Serum [facility] Comment on above: One Time for 1 Occur rences starting 06/10/2024 until 06/10/2024 End: 06-10-2024 ALTON MULTIPLEX SCRN WITH REFLEX [facility] Comment on above: One Time for 1 Occur rences starting 06/10/2024 until 06/10/2024 End: 06-10-[address] [facility] Comment on above: One Time for 1 Occur rences starting 06/10/2024 until 06/10/2024 End: 06-10-2024 [address] ANTIBODY [facility] Comment on above: One Time for 1 Occur rences starting 06/10/2024 until 06/10/2024 Immunizations Immunization Date Immunization Notes Care Provider Fa cility 01-05-2025 meningococcal (MenACWY-TT) vaccine, quadrivalent (MENQUADFI) Huy Marquez MD Work Phone: [facility] 01-05-2025 pneumococcal conjuga te (PCV20) vaccine, 20 valent (PREVNAR 20) Huy Marquez MD Work Phone: [facility] Payers Date Payer Category Payer Self-pay 2024 Private Health Insurance [employer] [id number] 2024 Unknown [id number] 2024 Unknown [id number] 1985 Unknown [id number] [id number]. 2.594 1986 Unknown [id number] 2.16.840.1.248138.3.579. 2.627 1986 Unknown [id number] 2.16.840.1.048049.3.579. 2.651 1986 Unknown [id number] [id number]. 2.651 1986 Unknown [id number] 2.16.840.1.074658.3.579. 2.651 1986 Unknown [id number] 2.16.840.1.515466.3.579. 2.651 1986 Unknown [id number] 2.16840.1.566267.3.579. 2.651 1986 Unknown [id number] 2.16.840.1.563884.3.579. 2.651 1986 Unknown [id number] 2.16.840.1.762484.3.579. 2.651 Unknown [id number] 2.16.840.1.761707.3.579. 2.462 Unknown [id number] 2.16.840.1.209690.3.579. 2.462 Unknown [id number] 2.16.840.1.074162.3.579. 2.462 Unknown [id number] 2.16.840.1.820407.3.579. 2.462 Unknown [id number] 2.16.840.1.603246.3.579. 2.462 Unknown [id number] 2.16.840.1.979349.3.579. 2.462 Unknown [id number] [id number]. 2.462 Social History Date Type Detail [facility] Start: 1985 Sex assigned at Not on file [facility] Start: 06-25-2024 End: 08-02-2024 Gender identity Not on file [facility] Start: 06-25-2024 End: 08-02-2024 History of Social function [facility] National Score (1-100), lower number is lower risk 61 [facility] Start: 07-20-[address] [facility] Never smoked tobacco [facility] Start: 07-20-2024 Tobacco use and exposure User of smokeless tobacco [facility] Start: 07-20-2024 [facility] Start: 08-02-2024 End: 05-18-2025 Tobacco smoking status NHIS Ex-smoker [facility] Start: 10-18-2008 End: 10-18-2018 History of tobacco use Current smoker [facility] Start: 10-18-2008 End: 10-18-2018 History of tobacco use Cigarette Smoker [facility] Start: 08-02-2024 Tobacco use and exposure Former smokeless tobacco user [facility] End: 10-18-2021 History of tobacco use Chews Tobacco [facility] Start: 08-02-2024 End: 08-24-2024 Alcoholic beverage intake Current drinker of alcohol (finding) [facility] Start: 08-02-2024 Alcohol Comment occasional [facility] Start: 01-04-2025 Sex Male (finding) [facility] Start: 1985 Sex Assigned At Male [facility] Goals Date Patient Goal Desired Activity [...] Type Note Facility 04-07-2025 Note HNO ID: [id number] Author: RODRIGO SINGLETARY RT(R) Service: Radiology Author [...] PATIENT PRESENTS WITH AN IMPLANTABLE OR ATTACHED ANODIZE MACHINE OPERATOR: No RADIOLOGY DEPARTMENT: General X-ray: Exam(s) Completed: Chest X-Ray PERIPHERAL IV DATA: Not applicable SIGNED BY: RT Carmela(R) April 07, 2025 7:48 PM [facility] 03-15-2025 Telephone encounter Note Prescription Refill Information [...] Willingham MA March 15, 2025 11:36 AM [facility] 03-15-2025 Miscellaneous Notes Prescription Refill Information The [...] 2025 11:36 AM documented in this encounter [facility] 01-24-2025 Instructions Huy Marquez MD - 01/24/2025 9:05 AM EDT - Continue taking Farxiga and Lisinopril as prescribed. - Follow up with your kidney doctor - Continue follow-up with your clinical fellow - Next appointment with your primary care physician is in July for your annual checkup. documented in this encounter [facility] 01-24-2025 Note HNO ID: [id number] Author: HUY MARQUEZ MD Service: ? Author Type: Physician Type: Progress Notes Filed: 01/24/2025 12:31 Note Text: Huy Marquez MD [address] [place] [address] Dept: [phone] Dept Visit Date: January 24, 2025 Name: Krysten Crook Date of : 1985 MRN/E #: [id number] Age: [age] year old Sex: male Subjective Patient presents with: Follow Up The patient consented to the use of SNTMNT software for draft documentation of the visit consistent with [facility]?s Notice of Privacy Practices. Subjective Hypertension: - Blood pressure reportedly well-controlled. - Currently taking lisinopril. 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 - Under the care of machine spreader - now taking Farxiga. - Awaiting delivery of [place] per nephrology - Followed by clinical fellow as well Active Non-Hospital Problems Diagnosis IgA [...] Huy Marquez MD Date: January 24, 2025 [facility] 01-24-2025 History of Present illness Narrative Images from the original note were not included. Huy Marquez MD [address] [place] [address] Dept: [phone] Dept Visit Date: January 24, 2025 Name: Krysten Crook Date of : 1985 MRN/E #: [id number] Age: [age] year old Sex: male Subjective Patient presents with: Follow Up The patient consented to the use of SNTMNT software for draft documentation of the visit consistent with [facility] s Notice of Privacy Practices. Subjective Hypertension: - Blood pressure reportedly well-controlled. - Currently taking lisinopril. 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 - Under the care of machine spreader - now taking Farxiga. - Awaiting delivery of [place] per nephrology - Followed by clinical fellow as well Active Non-Hospital Problems Diagnosis IgA [...] January 24, 2025 documented in this encounter [facility] 12-25-2024 Note ORIGINAL PROCEDURE: CT guided percutaneous [...] Sign Date: 12/25/2024 3:17:57 PM Ordering Provider: CAYLA LOGAN [facility] 11-27-2024 Telephone encounter Note Left voicemail for patient to call office. Please advise Lolita David MA [facility] 11-27-2024 Miscellaneous Notes Left voicemail for patient [...] 2024 8:34 AM documented in this encounter [facility] 11-27-2024 Telephone encounter Note Attempted to call patient, left message to return call. Irma Holly MA [facility] 11-27-2024 Telephone encounter Note Please inform patient: given patient's age, there is no indication for patient to be on this medication. If patient is okay with it, I would advise stopping this medication as it is unnecessary for him to be on it. [facility] 11-27-2024 Telephone encounter Note Prescription Refill Information [...] Holly MA November 27, 2024 8:34 AM [facility] 10-26-2024 Note HNO ID: [id number] Author: HUY MARQUEZ MD Service: ? Author Type: Physician Type: Progress Notes Filed: 10/26/2024 10:54 Note Text: Huy Marquez MD [address] [place] [address] Dept: [phone] Dept Visit Date: October 26, 2024 Name: Krysten Crook Date of : 1985 MRN/E #: [id number] Subjective Chief Complaint: Follow Up Subjective Krysten [...] Huy Marquez MD Date: October 26, 2024 [facility] 10-26-2024 History of Present illness Narrative Images from the original note were not included. Huy Marquez MD [address] [place] [address] Dept: [phone] Dept Visit Date: October 26, 2024 Name: Krysten Crook Date of : 1985 MRN/E #: [id number] Subjective Chief Complaint: Follow Up Subjective Krysten [...] October 26, 2024 documented in this encounter [facility] 10-25-2024 Telephone encounter Note Patient called back and rescheduled for tomorrow 10/26. Thanks! [facility] 10-25-2024 Miscellaneous Notes Patient called back and rescheduled for tomorrow 10/26. Thanks! Left a message for the patient to call the office back to see if he would like to re-schedule his appointment he missed today with Dr. Marquez. Thank you documented in this encounter [facility] 10-25-2024 Telephone encounter Note Left a message for the patient to call the office back to see if he would like to re-schedule his appointment he missed today with Dr. Marquez. Thank you [facility] 10-20-2024 Telephone encounter Note Patients mother in law Rivera called today. She wanted to confirm when his next appointment was. She was with patient so I spoke to him to make sure he was ok with me relaying the information to her and he said yes. He put Nicole back on the line and she was advised of the date/time. [facility] 10-20-2024 Miscellaneous Notes Patients mother in law Rivera called today. She wanted to confirm when his next appointment was. She was with patient so I spoke to him to make sure he was ok with me relaying the information to her and he said yes. He put Nicole back on the line and she was advised of the date/time. documented in this encounter [facility] 08-24-2024 Nurse Note DISCHARGE DRESSING APPLIED BY NANCY SHER PER PROVIDER ORDER [facility] 08-24-2024 Nurse Note DISCHARGE DRESSING APPLIED BY NANCY SHER PER PROVIDER ORDER WOUND ASSESSMENT COMPLETED BY SHABANA CROWDER RN. documented in this encounter [facility] 08-24-2024 Note HNO ID: [id number] Author: ROB ALBA DPM Service: ? Author [...] states he is to follow-up with his drug coordinator and clinical fellow next week. PAST MEDICAL HISTORY Diagnosis Date [...] skin rash to the lower extremities bilaterally. Thorp scars are noted where epithelialization of the [...] Wound Location Orientation Right Wound Description (Comments) [facility] Assessments 08/24/2024 8:00 AM Wound Image Wound [...] the ulcerations ar (more content not included)... [facility] 08-24-2024 History of Present illness Narrative Images [...] states he is to follow-up with his drug coordinator and clinical fellow next week. PAST MEDICAL HISTORY Diagnosis Date [...] skin rash to the lower extremities bilaterally. Thorp scars are noted where epithelialization of the [...] Wound Location Orientation Right Wound Description (Comments) [facility] Assessments 08/24/2024 8:00 AM Wound Image [...] After Visit Summary Thank you for choosing [facility] and allowing us to help heal your wounds. SIGNATURE: Rob Alba DPM PATIENT NAME: Krysten Crook DATE: August 24, 2024 TIME: 8:54 AM documented in this encounter [facility] 08-24-2024 Instructions Barbara Barlow RN - 08/24/2024 [...] do not need to return to the [facility]. Please call if you have any problems or the ulcer reoccurs. documented in this encounter [facility] 08-24-2024 Nurse Note WOUND ASSESSMENT COMPLETED BY SHABANA CROWDER RN. [facility] 08-10-2024 Nurse Note DISCHARGE DRESSING APPLIED BY SHABANA CROWDER RN PER PROVIDER ORDER [facility] 08-10-2024 Nurse Note DISCHARGE DRESSING APPLIED BY SHABANA CROWDER RN PER PROVIDER ORDER WOUND ASSESSMENT COMPLETED BY SHABANA CROWDER RN documented in this encounter [facility] 08-10-2024 Note HNO ID: [id number] Author: ROB ALBA DPM Service: ? Author [...] has been referred to a specialist in [place] to follow-up with his vasculitis. [facility] dermatology made the referral. PAST MEDICAL [...] Wound Location Orientation Right Wound Description (Comments) [facility] Assessments 08/10/2024 8:00 AM Wound Image [...] Placement Date 07/13 (more content not included)... [facility] 08-10-2024 History of Present illness Narrative Images [...] has been referred to a specialist in [place] to follow-up with his vasculitis. [facility] dermatology made the referral. PAST MEDICAL HISTORY [...] Wound Location Orientation Right Wound Description (Comments) [facility] Assessments 08/10/2024 8:00 AM Wound Image [place]-Wound [...] Wound Location Orientation Left Wound Description (Comments) [facility] Assessments 08/10/2024 8:00 AM Wound Image Wound [...] to follow-up with the vasculitis specialist in [place]. Patient is to call if he has any redness, pus, malodor or other signs of infection. He is healing well at this time. Treatment Note please see attached After Visit Summary Thank you for choosing [facility] and allowing us to help heal your wounds. SIGNATURE: Rob Alba DPM PATIENT NAME: Krysten Crook DATE: August 10, 2024 TIME: 8:39 AM documented in this encounter [facility] 08-10-2024 Nurse Note WOUND ASSESSMENT COMPLETED BY SHABANA CROWDER RN [facility] 08-10-2024 Instructions Barbara Barlow RN - 08/10/2024 [...] questions or concerns: Wednesday-Wednesday 8am-4:30pm, call the [facility] at [phone]. After 4:30pm, on weekends or holidays, call [facility] at [phone] and have the physician conveyor system operator paged. documented in this encounter [facility] 08-03-2024 Nurse Note DISCHARGE DRESSING APPLIED BY SHABANA CROWDER RN and NAILA XIONG LPN, CHT PER PROVIDER ORDER [facility] 08-03-2024 Nurse Note DISCHARGE DRESSING APPLIED BY SHABANA CROWDER RN and NAILA XIONG LPN CHT PER PROVIDER ORDER WOUND ASSESSMENT COMPLETED BY SUN MORRIS RN documented in this encounter [facility] 08-03-2024 Note HNO ID: [id number] Author: ROB ALBA DPM Service: ? Author [...] date: 2008 Quit date: 2018 Years since quittin.7 Smokeless tobacco: Former Types: [...] Impression Only No resulted procedures found. Wound 07/13/24836 Atypical Wound Pretibial Right (Active) Properties Placement Date 07/13/24 Placement Time 836 Location Pretibial (circumfirencial) Present on Original Admission Yes Wound Approximate Age at First Assessment (Weeks) 7 weeks Primary Wound Type Atypical Wound (IGA VASCULITIS) Wound Location Orientation Right Wound Description (Comments) [facility] Assessments 08/03/2024 8:00 AM Wound Image [...] Wound Bed Slough (%) 50 % Wound 07/13/24837 Atypical Wound Pretibial Left (Active) Properties Placement Date 07/13/24 Placement Time 837 Location Pretibial (circumfirencial) Present on Original Admission Yes Wound Approximate Age at First Assessment (Weeks) 7 weeks Primary Wound Type Atypical (more content not included)... [facility] 08-03-2024 History of Present illness Narrative Images [...] date: 2008 Quit date: 2018 Years since quittin.7 Smokeless tobacco: Former Types: [...] Wound Location Orientation Right Wound Description (Comments) [facility] Assessments 08/03/2024 8:00 AM Wound Image [...] Wound Location Orientation Left Wound Description (Comments) [facility] Assessments 08/03/2024 8:00 AM Wound Image [...] After Visit Summary Thank you for choosing [facility] and allowing us to help heal your wounds. SIGNATURE: Rob Alba DPM PATIENT NAME: Krysten Crook DATE: August 03, 2024 TIME: 9:09 AM documented in this encounter [facility] 08-03-2024 Instructions Nancy Mascorro RN - 08/03/2024 [...] cast padding as needed Change weekly at [facility] and as needed If problems with compression [...] questions or concerns: Wednesday-Wednesday 8am-4:30pm, call the [facility] at [phone]. After 4:30pm, on weekends or holidays, call [facility] at [phone] and have the physician conveyor system operator paged. documented in this encounter [facility] 08-03-2024 Nurse Note WOUND ASSESSMENT COMPLETED BY SUN MORRIS RN [facility] 08-02-2024 Note HNO ID: [id number] Author: HUY MARQUEZ MD Service: ? Author Type: Physician Type: Progress Notes Filed: 08/02/2024 21:02 Note Text: Huy Marquze MD [address] [place] [address] Dept: [phone] Dept Visit Date: August 02, 2024 Name: Krysten Crook Date of : 1985 MRN/E #: [id number] Subjective Chief Complaint: New Patient (Pt here [...] date: 2008 Quit date: 2018 Years since quittin.7 Smokeless tobacco: Former Types: Chew Quit date: 2021 Vaping Use Vaping status: current everyday user Substances: Nicotine Substance Use Topics Alcohol use: Yes Comment: occasional Drug use: Never reports being sexually active and has had partner(s) who are female. He reports using the following method of control/protection: Surgical. Employer And Job Title: No employer specified (work for [employer]) Years Of Education Completed: GED years Marital [...] at this time (more content not included)... [facility] 08-02-2024 History of Present illness Narrative Images from the original note were not included. Huy Marquez MD [address] [place] [address] Dept: [phone] Dept Visit Date: August 02, 2024 Name: Krysten Crook Date of : 1985 MRN/E #: [id number] Subjective Chief Complaint: New Patient (Pt here [...] Job Title: No employer specified (work for [employer]) Years Of Education Completed: GED years Marital [...] medications for this visit. Objective Objective 08/02/2411 10/16/24 0916 BP: 135/93 125/86 Pulse: 79 SpO2: [...] August 02, 2024 documented in this encounter [facility] 07-27-2024 Nurse Note DISCHARGE DRESSING APPLIED BY NAILA XIONG LPN, CHT PER PROVIDER ORDER [facility] 07-27-2024 Nurse Note DISCHARGE DRESSING APPLIED BY NAILA XIONG LPN, CHT PER PROVIDER ORDER WOUND ASSESSMENT COMPLETED BY MELQUIADES BERRIOS LPN documented in this encounter [facility] 07-27-2024 Note HNO ID: [id number] Author: ROB ALBA DPM Service: ? Author [...] Impression Only No resulted procedures found. Wound 07/13/24836 Atypical Wound Pretibial Right (Active) Properties Placement Date 07/13/24 Placement Time 836 Location Pretibial (circumfirencial) Present on Original Admission Yes Wound Approximate Age at First Assessment (Weeks) 7 weeks Primary Wound Type Atypical Wound (IGA VASCULITIS) Wound Location Orientation Right Wound Description (Comments) [facility] Assessments 07/27/2024 8:00 AM Wound Image [place]-Wound [...] Wound Pretibial Left (Active) Properties Placement Date 09/26/24 Placement Time 0838 Location Pretibial (circumfirencial) Present on Original Admission Yes Wound Approximate Age at First Assessment (Weeks) 7 weeks Primary Wound Type Atypical Wound (IGA VASCULITIS) Wound Location Orientation Left Wound Description (Comments) [facility] Assessments 07/27/2024 8:00 AM Wound Image [place]-Wound Assessment Dry;Hyperpigmented;Purple;Peelin g;Scarred (more content not included)... [facility] 07-27-2024 History of Present illness Narrative Images [...] Wound Location Orientation Right Wound Description (Comments) [facility] Assessments 07/27/2024 8:00 AM Wound Image [place]-Wound [...] Wound Location Orientation Left Wound Description (Comments) [facility] Assessments 07/27/2024 8:00 AM Wound Image [place]-Wound [...] After Visit Summary Thank you for choosing [facility] and allowing us to help heal your wounds. SIGNATURE: Rob Alba DPM PATIENT NAME: Krysten Crook DATE: July 27, 2024 TIME: 9:04 AM documented in this encounter [facility] 07-27-2024 Instructions Barbara Barlow RN - 07/27/2024 [...] cast padding as needed Change weekly at [facility] and as needed If problems with compression [...] questions or concerns: Wednesday-Wednesday 8am-4:30pm, call the [facility] at [phone]. After 4:30pm, on weekends or holidays, call [facility] at [phone] and have the physician conveyor system operator paged. documented in this encounter [facility] 07-27-2024 Nurse Note WOUND ASSESSMENT COMPLETED BY MELQUIADES BERRIOS LPN [facility] 07-20-2024 Nurse Note DISCHARGE DRESSING APPLIED BY NANCY MASCORRO RN CWCN PER PROVIDER ORDER [facility] 07-20-2024 Nurse Note DISCHARGE DRESSING APPLIED BY NANCY MASCORRO RN CWCN PER PROVIDER ORDER WOUND ASSESSMENT COMPLETED BY MELQUIADES BERRIOS LPN. PT C/O BLE BEING PRURITIC. documented in this encounter [facility] 07-20-2024 Note HNO ID: [id number] Author: ROB ALBA DPM Service: ? Author [...] Wound Location Orientation Right Wound Description (Comments) [facility] Assessments 07/20/2024 9:00 AM Wound Image [...] Wound Description (Comment (more content not included)... [facility] 07-20-2024 History of Present illness Narrative Images [...] Wound Location Orientation Right Wound Description (Comments) [facility] Assessments 07/20/2024 9:00 AM Wound Image [place]-Wound [...] Wound Location Orientation Left Wound Description (Comments) [facility] Assessments 07/20/2024 9:00 AM Wound Image [place]-Wound [...] After Visit Summary Thank you for choosing [facility] and allowing us to help heal your wounds. SIGNATURE: Rob Alba DPM PATIENT NAME: Krysten Crook DATE: July 20, 2024 TIME: 9:53 AM documented in this encounter [facility] 07-20-2024 Instructions Barbara Barlow RN - 07/20/2024 [...] cast padding as needed Change weekly at [facility] and as needed If problems with compression [...] questions or concerns: Wednesday-Wednesday 8am-4:30pm, call the [facility] at [phone]. After 4:30pm, on weekends or holidays, call [facility] at [phone] and have the physician conveyor system operator paged. documented in this encounter [facility] 07-20-2024 Nurse Note WOUND ASSESSMENT COMPLETED BY MELQUIADES BERRIOS LPN. PT C/O BLE BEING PRURITIC. [facility] 07-13-2024 Nurse Note DISCHARGE DRESSING APPLIED BY SUN MORRIS RN PER PROVIDER ORDER Care of the non-healing wound educational packet provided to patient [facility] 07-13-2024 Nurse Note DISCHARGE DRESSING APPLIED BY [...] and also antibiotics. documented in this encounter [facility] 07-13-2024 Note HNO ID: [id number] Author: ROB ALBA DPM Service: ? Author [...] lower extremities. This resulted after going to [facility] and jumping into the water off of [...] Wound Type Atypi (more content not included)... [facility] 07-13-2024 History of Present illness Narrative Images [...] lower extremities. This resulted after going to [employer] and jumping into the water off of [...] Wound Location Orientation Right Wound Description (Comments) [facility] Assessments 07/13/2024 8:28 AM Wound Image [place]-Wound [...] Wound Location Orientation Left Wound Description (Comments) [facility] Assessments 07/13/2024 8:28 AM Wound Image Wound [...] After Visit Summary Thank you for choosing [facility] and allowing us to help heal your wounds. SIGNATURE: Rob Alba DPM PATIENT NAME: Krysten Crook DATE: July 13, 2024 TIME: 9:13 AM documented in this encounter [facility] 07-13-2024 Instructions Barbara Barlow RN - 07/13/2024 [...] cast padding as needed Change weekly at [facility] and as needed If problems with compression [...] questions or concerns: Wednesday-Wednesday 8am-4:30pm, call the [facility] at [phone]. After 4:30pm, on weekends or holidays, call [facility] at [phone] and have the physician conveyor system operator paged. documented in this encounter [facility] 07-13-2024 Nurse Note ASSESSMENT COMPLETED BY AYESHA ROLON RN. Pt states that gauze irritates his skin. 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 No dressings to wounds today. Pt has taken a taper down round of prednisone and also antibiotics. [facility] 07-07-2024 Note HNO ID: [id number] Author: TANMAY DO APRN.MANAGER SYSTEMS Service: ? Author Type: Nurse Practitioner Type: [...] record of my encounter with this patient. [facility] 07-07-2024 History of Present illness Narrative Krysten [...] with this patient. documented in this encounter [facility] 06-29-2024 Note HNO ID: [id number] Author: TANMAY DO APRN.RADHA Service: ? Author [...] CLINDAMYCIN HCL 300 MG CAPSULE Tanmay Do, MANAGER SYSTEMS Follow Up: Return if symptoms worsen or [...] record of my encounter with this patient. [facility] 06-29-2024 History of Present illness Narrative Krysten [...] with this patient. documented in this encounter [facility] 06-24-2024 Note HNO ID: [id number] Author: RODRIGO SINGLETARY RT(R) Service: Radiology Author [...] PATIENT PRESENTS WITH AN IMPLANTABLE OR ATTACHED ANODIZE MACHINE OPERATOR: No RADIOLOGY DEPARTMENT: General X-ray: Exam(s) Completed: Chest X-Ray PERIPHERAL IV DATA: Not applicable SIGNED BY: RT Carmela(R) June 24, 2024 6:45 PM [facility] 06-10-2024 Consult note Associated Order (s): IP [...] of his extremities. Patient was evaluated by drug coordinator in his hometown and was told he [...] Avoid face and genital area. 06/10/24 06/24/24 [place] Rajendra, STUDIO OPERATIONS ENGINEER IN CHARGE-MANAGER SYSTEMS Allergies Keflex [cephalexin] Past Medical History Past [...] ANAQUANTITA No results found for: CANCA, ANTMYELOPEAB, [id number] Complements No results found for: C3, C4 [...] ALDOLASE, PL7, PL12, EJ, OJ, SRP, MI2AB, [id number], [id number], TPD1I887, PM100, KU, [id number], [id number], [id number], U3RNP Pertinent Radiology No orders to display [...] in his ankles. He did see a drug coordinator in his hometown and went for a [...] will be seen and discussed with attending clinical fellow KIKA Ceja. Recommendations are not official until [...] vasculitis All questions were answered. KIKA Robbins chief of hospital medicine Division of Immunology/Rheumatology Department of Internal Medicine [address] [phone] [facility] Work Phone: 06-10-2024 Consult note [...] of his extremities. Patient was evaluated by drug coordinator in his hometown and was told he [...] Avoid face and genital area. 06/10/24 06/24/24 Angela RajendraURBANON-MANAGER SYSTEMS Allergies Keflex [cephalexin] Past Medical History Past [...] ANAQUANTITA No results found for: CANCA, ANTMYELOPEAB, [id number] Complements No results found for: C3, C4 [...] ALDOLASE, PL7, PL12, EJ, OJ, SRP, MI2AB, [id number], [id number], [id number], PM100, KU, [id number], [id number], [id number], U3RNP Pertinent Radiology No orders to display [...] in his ankles. He did see a drug coordinator in his hometown and went for a [...] will be seen and discussed with attending clinical fellow KIKA Ceja. Recommendations are not official until [...] vasculitis All questions were answered. KIKA Robbins chief of hospital medicine Division of Immunology/Rheumatology Department of Internal Medicine [address] [phone] documented in this encounter [facility] 06-10-2024 Hospital Discharge instructions IMELDA Jay - 06/10/2024 1:06 PM EDT -Start Prednisone taper. - Please discontinue doxycycline - Start clindamycin 300mg two times daily x 2 weeks - Start triamcinolone 0.1% ointment two times daily to all areas of burning, pruritus or open wounds - Follow up with close to home drug coordinator in 2 months to repeat urinalysis and Cr labs to ensure not developing renal injury - Return to the Emergency Department if any worsening symptoms. CLINICAL PROTECTION AGENT If you need any further assistance with scheduling follow up care, please call the Clinical Soaking Tank Worker at . The following attachments cannot be sent through Care Everywhere.Vasculitis: General Info (Slovenian)documented in this encounter [facility] 06-10-2024 Progress note Formatting of t his [...] so that it accurately reflects our care. [facility] Work Phone: 06-10-2024 Miscellaneous Notes This patient [...] has undergone a steroid taper from his drug coordinator with no relief of symptoms, at which point his drug coordinator has now advised him to come to [...] 06/10/2024 2:35 AM documented in this encounter [facility] 06-10-2024 Emergency department Note Bed: C079 Expected date: Expected time: Means of arrival: Comments: 17 [facility] 06-10-2024 Emergency department Note Bed: C079 Expected date: Expected time: Means of arrival: Comments: 17 Received report and reviewed patient's chart. Plan of care discussed with [facility] Attending and Midlevel Provider. Plan: Derm and Rheum consults. This CM will remain available to assist with further patient needs. Patient listed as having no PCP. CM placed resources in AVS. Tatyana Tang RN, [facility] Clinical Soaking Tank Worker Emergency Department [phone] Pt reports that he took one of [...] performed during the hospital encounter of 06/09/24 [facility] 7 - ED Result Value Ref [...] Auto 2.92 0.83 - 3.57 K/uL Abs [place] Auto 1.01 (H) 0.24 - 0.93 K/uL [...] 1 month. He has been seeing a drug coordinator in his hometown which is approximately 2[place]2 hours away. Community Health Coordinator has prescribed him a prednisone taper with 40 daily and will be going to 20 daily this week. He also had a punch biopsy obtained and was told that his vasculitis was due to strep. However, his vasculitis has not significantly improved while being on his prednisone. Per patient's report, drug coordinator for him to the emergency department for [...] Impression: vasculitis Disposition: obs Patient Krysten Crook [id number] to be placed in observation unit for [...] at this time. documented in this encounter [facility] 06-10-2024 Emergency department Note Received report and reviewed patient's chart. Plan of care discussed with [facility] Attending and Midlevel Provider. Plan: Derm and Rheum consults. This CM will remain available to assist with further patient needs. Patient listed as having no PCP. CM placed resources in AVS. Tatyana Tang RN, [facility] Clinical Soaking Tank Worker Emergency Department [phone] [facility] 06-10-2024 Emergency department Note Pt reports that he took one of his home supply norco 5/325 at 0230. [facility] 06-10-2024 Progress note Formatting of [...] has undergone a steroid taper from his drug coordinator with no relief of symptoms, at which point his drug coordinator has now advised him to come to [...] by: Chaz Hair PA-C, 06/10/2024 2:[address] [facility] Work Phone: 06-10-2024 Physician Emergency [...] performed during the hospital encounter of 06/09/24 [facility] 7 - ED Result Value Ref [...] Auto 2.92 0.83 - 3.57 K/uL Abs [place] Auto 1.01 (H) 0.24 - 0.93 K/uL Abs Eos Auto 0.05 0.00 - 0.48 K/uL Abs Baso Auto <0.04 0.00 - 0.09 K/uL No orders to display ED Course as of 06/10/24 0000 WedJun 09, 2024 2359 Hypertensive and tachycardic otherwise stable 2359 Leukocytosis to 17.2, thrombocytosis of [address] MD 06/10/[address] [facility] Work Phone: 06-09-2024 Physician Emergency department Note DEPARTMENT OF EMERGENCY MEDICINE CHIEF COMPLAINT Vasculitis HPI Krysten Crook is a 39 y.o. male with PMH HTN, HLD who presents with IgA vasculitis. Patient has had vasculitis of the bilateral lower extremities for the last 1 month. He has been seeing a drug coordinator in his hometown [place] is approximately 2[place]2 hours away. Community Health Coordinator has prescribed him a prednisone taper with 40 daily and will be going to 20 daily this week. He also had a punch biopsy obtained and was told that his vasculitis was due to strep. However, his vasculitis has not significantly improved while being on his prednisone. Per patient's report, drug coordinator for him to the emergency department for [...] Impression: vasculitis Disposition: obs Patient Krysten Crook [id number] to be placed in observation unit for [...] occur. Yanna Vera MD Resident 06/10/[address] [facility] Work Phone: 06-09-2024 Emergency department Note Bed: E017 Expected date: Expected time: Means of arrival: Comments: triage [facility] 06-09-2024 Emergency department Note Pt arrives with IgA vasculitis. Pt was referred to [facility] for consult with vascular and admission. Pt has no other complaints at this time. [facility] 05-16-2024 Note . MICRO - [...] Locations *1: This test was performed at: [address], [address] [place] [address] ([place]) 05-16-2024 Note . MICRO - Microbiology PROCEDURE: [...] Locations *1: This test was performed at: [address], [address] [place] [address] ([place]) Evaluation note Diagnosis Vasculitis- Primary Arteritis, unspecified [facility] Diagnosis Wound infection- Primary Posttraumatic wound infection not elsewhere classified [facility] Diagnosis Vasculitis (HCC)- Primary Arteritis, unspecified [facility] Diagnosis IgA mediated leukocytoclastic vasculitis (HCC)- Primary Allergic purpura 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) 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) Chronic venous hypertension (idiopathic) with ulcer of bilateral lower extremity (CODE) (HCC) Secondary lymphedema Other lymphedema documented [facility]* Diagnosis IgA mediated leukocytoclastic vasculitis (HCC)- Primary Allergic purpura 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) 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) Chronic venous hypertension (idiopathic) with ulcer of bilateral lower extremity (CODE) (HCC) Secondary lymphedema Other lymphedema [facility]* Diagnosis Wellness examination- Primary Screening for depression Encounter for screening examination for other mental health and behavioral disorders Encounter for immunization Need for other specified prophylactic vaccination against single bacterial disease Nicotine dependence, uncomplicated, unspecified nicotine product type IgA mediated leukocytoclastic vasculitis (HCC) Allergic purpura [facility]* Diagnosis IgA mediated leukocytoclastic vasculitis (HCC)- Primary Allergic purpura 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) 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) Chronic venous hypertension (idiopathic) with ulcer of bilateral lower extremity (CODE) (HCC) Secondary lymphedema Other lymphedema documented in this encounter [facility]* Diagnosis IgA mediated leukocytoclastic vasculitis (HCC)- Primary Allergic purpura 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) 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) Chronic venous hypertension (idiopathic) with ulcer of bilateral lower extremity (CODE) (HCC) Secondary lymphedema Other lymphedema documented [facility] this encounter [facility]* Diagnosis Nicotine dependence, uncomplicated, unspecified nicotine product type- Primary IgA mediated leukocytoclastic vasculitis (HCC) Allergic purpura Hypertension, unspecified type [facility] this encounter [facility] noteNo assessment information availableWSt. [facility] Work Phone: Evaluation note* Diagnosis Hypertension, unspecified type- Primary IgA nephropathy Nephritis and nephropathy, not specified as acute or chronic, with unspecified pathological lesion in kidney IgA mediated leukocytoclastic vasculitis Allergic purpura documented in this encounter [facility] for referral (narrative)* Consultation (Routine) - New Request Specialty Diagnoses / Procedures Referred By Alban lugo Referred To Contact Dermatology Diagnoses Vasculitis Zehra Drewia, IMELDA [address] [place] [address] Referral ID Status Reason Start Date Expiration Date V isits Requested Visits Authorized [id number] New Request 06/10/2024 07/05/2025 1 1 [facility]No reason for referral information availableWSt. [facility] of [facility] Work Phone: Summary Purpose Family History [...] section and content) DATE CREATED AUTHOR 12/04/2019 [facility] DATE CREATED AUTHOR AUTHOR'S ORGANIZ ATION 05/17/2024 [facility] DATE CREATED AUTHOR AUTHOR'S ORGANIZ ATION 05/19/2024 [facility] ([place]) DATE CREATED AUTHOR AUTHOR'S ORGANIZ ATION 06/22/2024 [facility] DATE CREATED AUTHOR AUTHOR'S ORGANIZ ATION 01/03/[address] [facility] DATE CREATED AUTHOR AUTHOR'S ORGANIZ ATION 04/08/2025 [facility] DATE CREATED AUTHOR AUTHOR'S ORGANIZ ATION 04/09/2025 [facility] DATE CREATED AUTHOR AUTHOR'S ORGANIZ ATION 06/23/2025 [facility] Scheduled Active and Recently Administ ered Medications [...] or prosecute any alcohol or drug abuse patient.[facility] the event this information is protected by the Federal Confidentiality of Alcohol and Drug Abuse Patient Records regulations: The Federal rules restrict any use of the information to criminally investigate or prosecute any alcohol or drug abuse patient.[facility] CenterIn the event this information is protected by the Federal Confidentiality of Alcohol and Drug Abuse Patient Records regulations: The Federal rules restrict any use of the information to criminally investigate or prosecute any alcohol or drug abuse patient.[facility] CenterIn the event this information is protected by the Federal Confidentiality of Alcohol and Drug Abuse Patient Records regulations: The Federal rules restrict any use of the information to criminally investigate or prosecute any alcohol or drug abuse patient.[facility] Center[facility] the event this information is protected by the Federal Confidentiality of Alcohol and Drug Abuse Patient Records regulations: The Federal rules restrict any use of the information to criminally investigate or prosecute any alcohol or drug abuse patient.[facility] CenterIn the event this information is protected by the Federal Confidentiality of Alcohol and Drug Abuse Patient Records regulations: The Federal rules restrict any use of the information to criminally investigate or prosecute any alcohol or drug abuse patient.[facility] CenterIn the event this information is protected by the Federal Confidentiality of Alcohol and Drug Abuse Patient Records regulations: The Federal rules restrict any use of the information to criminally investigate or prosecute any alcohol or drug abuse patient.[facility] CenterIn the event this information is protected by the Federal Confidentiality of Alcohol and Drug Abuse Patient Records regulations: The Federal rules restrict any use of the information to criminally investigate or prosecute any alcohol or drug abuse patient.[facility] CenterIn the event this information is protected by the Federal Confidentiality of Alcohol and Drug Abuse Patient Records regulations: The Federal rules restrict any use of the information to criminally investigate or prosecute any alcohol or drug abuse patient.[facility] CenterIn the event this information is protected by the Federal Confidentiality of Alcohol and Drug Abuse Patient Records regulations: The Federal rules restrict any use of the information to criminally investigate or prosecute any alcohol or drug abuse patient.[facility] CenterIn the event this information is protected by the Federal Confidentiality of Alcohol and Drug Abuse Patient Records regulations: The Federal rules restrict any use of the information to criminally investigate or prosecute any alcohol or drug abuse patient.[facility] CenterIn the event this information is protected by the Federal Confidentiality of Alcohol and Drug Abuse Patient Records regulations: The Federal rules restrict any use of the information to criminally investigate or prosecute any alcohol or drug abuse patient.[facility] CenterIn the event this information is protected by the Federal Confidentiality of Alcohol and Drug Abuse Patient Records regulations: The Federal rules restrict any use of the information to criminally investigate or prosecute any alcohol or drug abuse patient.[facility] CenterIn the event this information is protected by the [facility] Confidentiality of Alcohol and Drug Abuse Patient Records regulations: The Federal rules restrict any use of the information to criminally investigate or prosecute any alcohol or drug abuse patient.[facility] CenterIn the event this information is protected by the Federal Confidentiality of Alcohol and Drug Abuse Patient Records regulations: The Federal rules restrict any use of the information to criminally investigate or prosecute any alcohol or drug abuse patient.[facility] Reason for Visit (unrecogniz ed section and [...] Care Teams (unrecognized sec tion and content) Towboat Captain Relationship Specialty Start Date End Date Rob Alba DPM [address] [address] Podiatry 07/07/24 Towboat Captain Relationship Specialty Start Date End Date Rob Alba DPM [address] [address] Podiatry 07/07/24 Towboat Captain Relationship Specialty Start Date End Date Rob Alba DPM [address] [address] Podiatry 07/07/24 Towboat Captain Relationship Specialty Start Date End Date Huy Marquez MD [address] [place] [address] [place] [address] PCP - General Family Medicine 08/02/24 Rob Alba DPM [address] [address] Podiatry 07/07/24 Towboat Captain Relationship Specialty Start Date End Date Huy Maruqez MD [address] [place] [address] [place] [address] PCP - General Family Medicine 08/02/24 Rob Alba DPM [address] [address] Podiatry 07/07/24 Towboat Captain Relationship Specialty Start Date End Date Huy Marquez MD [address] [place] [address] [place] [address] PCP - General Family Medicine 08/02/24 Rob Alba DPM [address] [place] [address] Podiatry 07/07/24 Towboat Captain Relationship Specialty Start Date End Date Huy Marquez MD [address] [place] [address] [place] [address] PCP - General Family Medicine 08/02/24 Rob Alba DPM [address] [place] [address] Podiatry 07/07/24 Towboat Captain Relationship Specialty Start Date End Date Huy Marquez MD [address] [place] [address] [place] [address] PCP - General Family Medicine 08/02/24 Rob Alba DPM [address] [place] [address] Podiatry 07/07/24 Towboat Captain Relationship Specialty Start Date End Date Huy Marquez MD [address] [place] [address] [place] [address] PCP - General Family Medicine 08/02/24 Rob Alba DPM [address] [place] [address] Podiatry 07/07/24 Towboat Captain Relationship Specialty Start Date End Date Huy Marquez MD [address] [place] [address] [place] [address] PCP - General Family Medicine 08/02/24 Rob Alba DPM [address] [place] [address] Podiatry 07/07/24 Team Status: Active Member Role Status Dates Tavon Rollins NP, [employer]MING MACHINE SETTER-C Primary Care Provider Active Team Status: Inactive Member Role Status Dates Tavon Rollins NP, [employer] TRIMMING MACHINE SETTER-C Primary Care Provider Active Start: December 25, 2024 End: December 25, 2024 Dr. Edith Gore MD Attending Provider Active Start: December 25, 2024 End: December 25, 2024 Dr. Edith Gore MD Referring Provider Active Start: December 25, 2024 End: December 25, 2024 Towboat Captain Relationship Specialty Start Date End Date Huy Marquez MD [address] [place] [address] [place] [address] PCP - General Family Medicine 08/02/24 Rob Alba DPM [address] [address] Podiatry 07/07/24 Towboat Captain Relationship Specialty Start Date End Date Huy Marquez MD [address] [place] [address] [place] [address] PCP - General Family Medicine 08/02/24 Rob Alba DPM [address] [address] Podiatry 07/07/24 Team Status: Inactive Member Role Status Dates Tavon Rollins NP, [employer] TRIMMING MACHINE SETTER-C Primary Care Provider Active Start: March 26, 2025 End: March 26, 2025 Dr. Cayla Logan MD Attending Provider Act alis Start: March 26, 2025 End: March 26, 2025 Dr. Cayla Logan MD Referring Provider Act alis Start: March 26, 2025 End: March 26, 2025 Team Status: Active Member Role/Relationship Status Dates Out of [facility] Doctor Primary Care Provider Active Team Status: Inactive Member Role/Relationship Status Dates Tavon Rollins NP, [employer] TRIM[employer]ING MACHINE SETTER-C Primary Care Provider Active Start: March 26, 2025 End: March 26, 2025 Dr. Cayla Logan MD Attending Provider Act alis Start: March 26, 2025 End: March 26, 2025 Dr. Calya Logan MD Referring Provider Act alis Start: March 26, 2025 End: March 26, 2025 Team Status: Inactive Member Role/Relationship Status Dates Tavon Rollins NP, [employer] MACHINE SETTER-C Primary Care Provider Active Start: April 24, 2025 End: April 24, 2025 Dr. Edith Gore MD Attending Provider Active Start: April 24, 2025 End: April 24, 2025 Dr. Edith Gore MD Referring Provider Active Start: April 24, 2025 End: April 24, 2025 Team Status: Inactive Member Role/Relationship Status Dates Tavon Rollins BRUSH TRIMMING MACHINE SETTER, [employer] TR[employer]ING MACHINE SETTER-C Referring Provider Active Start: May 24, 2025 End: May 24, 2025 Dr. Jabari Reese MD Attending Provider Active Start: May 24, 2025 End: May 24, 2025 Out [facility] Primary Care Provider Active Start: May 24, [...] BE BASED ON THE PRIMARY CLINICAL RECORDS. [employer] provides no warranty or guarantee of the accuracy or completeness of information in this document.
== END | disposition home or self-care (01) ==
PROVIDERS: Referring Provider Internal Medicine; Visit Provider Internal Medicine
DX: R74.8 Abnormal levels of other serum enzymes (principal); K74.00 Hepatic fibrosis, unspecified
CPT/HCPCS: 76705; 76981

== ENCOUNTER → 2025-07-18 | Outpatient (CLI) | payer OTHER, SELFPAY ==
[2025-07-18 18:02] LABS: Hematocrit 43.4 % (40-54); Hemoglobin 14.1 g/dL (13.0-16.5); Immature Granulocytes Count 0.030 X10^3/uL (0.0-0.0); Mean Corp Hgb Conc 32.5 g/dL (32-36); Mean Corpuscular Volume 85.6 fL (80-94); Mean Platelet Vol. 9.3 fl (6.2-12.0); NRBC Flagged by Analyzer 0 % (0-5); Platelet Count 317 K/mm3 (150-450); RBC Distribution Width CV 13.3 % (11.6-14.6); RBC Distribution Width SD 41.4 fl (35.1-43.9); Red Blood Count 5.07 M/mm3 (4.6-6.2); White Blood Count 9.2 K/mm3 (4.4-11.0)
[2025-07-18 18:20] LABS: AST(SGOT) 23 U/L (<=37); Alanine Aminotransfer ALT/SGPT 35 U/L (<=46); Albumin, Serum 3.7 g/dL (3.5-5.0); Alkaline Phosphatase 65 U/L (40-129); Anion Gap 13 (5-15); BUN 17 mg/dL (4-19); BUN/Creat Ratio 20.4 RATIO (10-20); CRP 32.30 mg/L (0.0-3.0); Calcium,Total 9.8 mg/dL (7.6-11.0); Carbon Dioxide 22.1 mmol/L (21.0-32.0); Chloride 105 mmol/L (98-108); Globulin 2.8 g/dL (2.2-4.2); Glucose 124 mg/dL (70-99); Potassium 4.2 mmol/L (3.3-5.1)
[2025-07-18 18:33] LABS: Creatinine, Urine (random) 61.20 mg/dL (39.00-259.00); Protein, Urine (Random) 10.2 mg/dL (0.0-12.0); Protein:Creat Ratio 167 mg/g CRE (0-200)
[2025-07-18 21:29] LABS: Color, Urine Yellow (Yellow); Glucose, Dipstick 1000 mg/dl (Normal); Ketone-Dipstick Negative (Negative); Leukocyte Esterase-Dipstick Negative /ul (Negative); Nitrite-Dipstick Negative (Negative); Occult Blood-Urine 10 /ul (Negative); Protein-Dipstick 15 mg/dl (Negative); Specific Gravity, Urine 1.015 (1.002-1.030); Urine Bilirubin Dipstick Negative (Negative)
== END | disposition home or self-care (01) ==
LOC: MTLAB 14:17
PROVIDERS: Referring Provider Internal Medicine Rheumatology; Visit Provider Internal Medicine Rheumatology
DX: M31.0 Hypersensitivity angiitis (principal); Z79.899 Other long term (current) drug therapy
CPT/HCPCS: 36415; 80053; 81002; 82570; 84156; 85025; 85652; 86140

== ENCOUNTER → 2025-09-25 | Outpatient (CLI) | payer OTHER, SELFPAY | END | disposition home or self-care (01) | LOC: SL 09:03 | PROVIDERS: Referring Provider Nurse Practitioner Acute Care; Visit Provider Nurse Practitioner Acute Care | DX: G47.33 Obstructive sleep apnea (adult) (pediatric) (principal); G47.10 Hypersomnia, unspecified | CPT/HCPCS: 95806 ==

== ENCOUNTER → 2025-10-08 | Outpatient (CLI) | payer OTHER, SELFPAY | END | disposition home or self-care (01) | LOC: SL 12:16 | PROVIDERS: Visit Provider Nurse Practitioner Acute Care | DX: G47.33 Obstructive sleep apnea (adult) (pediatric) (principal) ==

== ENCOUNTER → 2025-10-08 | Outpatient (CLI) | payer OTHER, SELFPAY ==
[2025-10-08 12:07] LABS: Hematocrit 49.7 % (40-54); Hemoglobin 15.7 g/dL (13.0-16.5); Immature Granulocytes Count 0.050 X10^3/uL (0.0-0.0); Mean Corp Hgb Conc 31.6 g/dL (32-36); Mean Corpuscular Volume 84.0 fL (80-94); Mean Platelet Vol. 9.3 fl (6.2-12.0); NRBC Flagged by Analyzer 0 % (0-5); Platelet Count 345 K/mm3 (150-450); RBC Distribution Width CV 13.7 % (11.6-14.6); RBC Distribution Width SD 41.8 fl (35.1-43.9); Red Blood Count 5.92 M/mm3 (4.6-6.2); White Blood Count 10.5 K/mm3 (4.4-11.0)
[2025-10-08 12:56] LABS: PTHIN 31 pg/mL (11-61)
[2025-10-08 12:58] LABS: Creatinine, Urine (random) 75.60 mg/dL (39.00-259.00); Protein, Urine (Random) 10.3 mg/dL (0.0-12.0); Protein:Creat Ratio 136 mg/g CRE (0-200)
[2025-10-08 13:20] LABS: Anion Gap 12 (7-18); BUN 17 mg/dL (4-19); BUN/Creat Ratio 17.4 RATIO (10-20); Calcium,Total 9.7 mg/dL (7.6-11.0); Carbon Dioxide 23.7 mmol/L (20.0-29.0); Chloride 100 mmol/L (96-106); Glucose 101 mg/dL (70-99); Potassium 4.4 mmol/L (3.5-5.1); Uric Acid 5.6 mg/dL (3.5-7.2); Vitamin D,25 Hydroxy 38.4 ng/mL (30-100)
== END | disposition home or self-care (01) ==
LOC: MTLAB 10:30
PROVIDERS: Referring Provider Student in an Organized Health Care Education/Training Program; Visit Provider Student in an Organized Health Care Education/Training Program
DX: I10 Essential (primary) hypertension (principal); D63.1 Anemia in chronic kidney disease; E21.1 Secondary hyperparathyroidism, not elsewhere classified
CPT/HCPCS: 36415; 80048; 82306; 82570; 83970; 84156; 84550; 85025